=== PATIENT | female | born 1960 | race Caucasian/White ===

== ENCOUNTER 2017-10-15 18:13 | Emergency (ER) | payer OTHER ==
--- OUTSIDE RECORDS SUMMARY | 2017-10-15 18:15 | XMS REPORT ---
:1960 [facility] Address [address] [place] [address] [address] Care Team Providers Name Role Phone Deshawn CAMPOS Unavailable Unavailable Problems This patient has no known problems. Allergies, Adverse Reactions, Alerts This patient has no known allergies or adverse reactions. Medications This patient has no known medications. Results Test Description Test Time Test Comments Text Results Atomic Results Result Comments [facility] [address] [address] Patient Name: GERA PALUMBO SERIES MR #: [id number] : 1960 Age/Sex: 56/F W/PA CXR Req #: [id number] Adm Physician: Ordered by: JEF CAMPOS MD Report #: [id number] Location: ER Room/Bed: _ Procedure: [id number] DX/ABDOMEN ACUTE SERIES W/PA CXR Exam Date: 04/18/17 Exam Time: 0210 REPORT STATUS: Signed EXAM: ABDOMEN ACUTE SERIES W/ PA CXR, supine and erect views of the abdomen, AP view of the chest DATE: 04/18/2017 1:29 AM Time stamp on exam: 0155 hours INDICATION: Abdominal pain COMPARISON: CT of the abdomen and pelvis December 12, 2016 FINDINGS: LINES/TUBES: None LUNGS: No consolidations or edema. PLEURA: No effusions or pneumothorax. HEART AND MEDIASTINUM: Normal size and contour. BOWEL PATTERN: Non-obstructed bowel gas pattern. BONES AND SOFT TISSUES: No acute bone findings. No abnormal calcifications. No mass effect. Bilateral chest surgical clips. Surgical clips right upper quadrant of the abdomen. IMPRESSION: No acute thoracic abnormality. No evidence for bowel obstruction. Signed by: Dr. Theo Blanton M.D. on 04/18/2017 2:40 AM Dictated By: THEO BLANTON MD 9 Transcribed By: DONY on 04/18/17239 COPY TO: JEF CAMPOS MD
[2017-10-15 19:45] LABS: Glomerular Filtration Rate > 60 mL/min (>60)
[2017-10-15 19:46] LABS: Bicarbonate 30 mEq/L (21-31); Lipase 39 U/L (22-51); Potassium 3.5 mEq/L (3.6-5.0); Sodium Level 132 mEq/L (135-145)
[2017-10-15 19:52] LABS: ALT/SGPT 45 IU/L (10-60); AST/SGOT 55 IU/L (10-42); Albumin 3.7 g/dL (3.2-5.5); Alkaline Phosphatase 188 IU/L (42-121); Amylase Level 40 U/L (28-100); BUN Blood Urea Nitrogen 9 mg/dL (6-20); Bilirubin Direct 0.2 mg/dL (0-0.2); Glomerular Filtration Rate > 90 mL/min (=/>90); Protein, Total 7.9 g/dL (6.0-8.3)
[2017-10-15 19:54] LABS: Absolute Lymphocytes (CBC) 1.4 K/uL (0.7-4.9); Absolute Monocytes 0.5 K/uL (0.1-1.3); Absolute Neutrophil 5.5 K/uL (1.8-8.0); Basophils % 0.4 % (0-1.3); Eosinophils % 0.4 % (0-4.4); Hematocrit 40.3 % (36.0-45.0); Lymphocytes % 19.3 % (15.3-44.8); MCH 26.5 pg (27.0-35.0); MCV 81.7 fL (80-100); MPV 8.7 fL (7.6-11.3); Monocytes % 6.9 % (3.3-12.3); RBC Red Blood Cell Count 4.93 M/uL (3.86-4.86)
[2017-10-15 20:05] LABS: Urine Blood NEGATIVE (NEG); Urine Glucose 2+ (NEG); Urine Protein NEGATIVE (NEG); Urine Specific Gravity 1.015 (1.005-1.030); Urine pH 7.5 (5.0-7.0)
[2017-10-15 20:06] LABS: Glucose Level 471 mg/dL (65-120)
[2017-10-15] MEDS ORDERED: NA CHLORIDE 0.9% 500 ML ONE (20:16)
[2017-10-15] MEDS ORDERED: ONDANSETRON 4 MG/2 ML VIAL ONE (20:16)
[2017-10-15] MEDS ORDERED: MORPHINE 4 MG/ML SYR ONE ×2 (20:17→21:29)
[2017-10-15 20:21] LABS: Urine Bacteria <20 /HPF (<20); Urine Culture Reflex Order NOT NEEDED; Urine RBC <5 /HPF (NONE SEEN)
--- NOTE | 2017-10-15 20:25 | RAD REPORT ---
EXAM DESCRIPTION: Kelli Single View10/15/2017 8:16 pm CLINICAL HISTORY: Abd pain COMPARISON: 2016 FINDINGS: The lungs appear clear of acute infiltrate. The heart is normal size IMPRESSION: No acute abnormalities displayed
[2017-10-15] MEDS ORDERED: NA CHLORIDE 0.9% 1,000 ML ONE (20:45)
[2017-10-15] MEDS ORDERED: INSULIN -REGULAR HUMAN 50 UNIT/0.5 ML ML ONE (20:45)
--- NOTE | 2017-10-16 | ER ---
Nurse's Notes [facility] Name: Jeannette Ashby Age: 57 yrs Sex: Female : 1960 Arrival Date: 10/15/2017 Time: 18:17 Bed 20 Private MD: Hollie Zamora Diagnosis: Unspecified abdominal pain Presentation: 10/15 18:36 Presenting complaint: Patient states: "I checked my sugar other and it read high. I lk1 took my Novalog and the last reading was 576. My vision is blurry and I am having abdominal pain. I feel lethargic". Transition of care: patient was not received from another setting of care. Onset of symptoms was October 15, 2017 at 08:00. Care prior to arrival: None. 18:36 Method Of Arrival: Ambulatory lk1 18:36 Acuity: VERONICA 3 lk1 Triage Assessment: 18:38 General: Appears in no apparent distress. Behavior is calm, cooperative, appropriate lk1 for age. Pain: Complains of pain in abdomen Pain currently is 8 out of 10 on a pain scale. GI: Reports diarrhea. : Reports urinary frequency. Historical: - Allergies: 18:38 Darvocet-N 100; lk1 18:38 tramadol; lk1 18:38 Zithromax; lk1 - PMHx: 18:38 Anxiety; MUSCLE WEAKNESS; Diabetes - IDDM; Depression; COPD; Cancer, Breast; colitis; lk1 - PSHx: 18:38 Appendectomy; Hysterectomy; Cholecystectomy; ; bilateral mastectomy; breast lk1 reconstructive surgery; - Immunization history:: Adult Immunizations up to date. - Social history:: Smoking status: Patient uses tobacco products, smokes one pack cigarettes per day. Screenin:08 Abuse screen: Denies threats or abuse. Nutritional screening: No deficits noted. jd3 Tuberculosis screening: No symptoms or risk factors identified. Fall Risk None identified. Assessment: 18:52 Reassessment: Patient states she checked her sugar at approximately 1700 and it was in ae1 the "600s", then took 8 units Novolog insulin, then checked her sugar again approximately an hour later and sugar was still "576". Patient states she was in the hospital 2 days prior, and was diagnosed with colitis and placed on antibiotics, and is still having abdominal pain. 19:03 Reassessment: Report and hand off care to Rosario Hull RN. ae1 19:06 General: Appears in no apparent distress. uncomfortable, Behavior is calm, cooperative, jd3 appropriate for age. Pain: Complains of pain in abdomen Quality of pain is described as stabbing, throbbing. Neuro: Level of Consciousness is awake, alert, obeys commands, Oriented to person, place, time, situation. Cardiovascular: Heart tones S1 S2 present Capillary refill < 3 seconds Patient's skin is warm and dry. Respiratory: Airway is patent Respiratory effort is even, unlabored, Respiratory pattern is regular, symmetrical, Breath sounds are clear bilaterally. GI: Abdomen is round Bowel sounds present X 4 quads. Abd is soft Abdomen is tender to palpation X 4 quads. Reports lower abdominal pain, upper abdominal pain, diarrhea. : No signs and/or symptoms were reported regarding the genitourinary system. EENT: No signs and/or symptoms were reported regarding the EENT system. Derm: Skin is intact, Skin is dry, Skin is normal, Skin temperature is warm. Musculoskeletal: Circulation, motion, and sensation intact. Range of motion: intact in all extremities. 20:11 Reassessment: Pt complained of abd pain and after discussion with Page KAREN pt was given fc Morphine. 20:49 Reassessment: Patient appears in no apparent distress at this time. Patient and/or jd3 family updated on plan of care and expected duration. Pain level reassessed. Patient is alert, oriented x 3, equal unlabored respirations, skin warm/dry/pink. pt finished oral contrast CT notified. 21:18 Reassessment: Patient appears in no apparent distress at this time. Patient and/or jd3 family updated on plan of care and expected duration. Pain level reassessed. Patient is alert, oriented x 3, equal unlabored respirations, skin warm/dry/pink. pt reporting continued pain, provider notified, new orders received, see MAR. 22:46 Reassessment: Patient appears in no apparent distress at this time. Patient and/or jd3 family updated on plan of care and expected duration. Pain level reassessed. Patient is alert, oriented x 3, equal unlabored respirations, skin warm/dry/pink. pt back from CT. 23:54 Reassessment: Patient appears in no apparent distress at this time. Patient and/or jd3 family updated on plan of care and expected duration. Pain level reassessed. Patient is alert, oriented x 3, equal unlabored respirations, skin warm/dry/pink. 10/16 00:22 Reassessment: Patient appears in no apparent distress at this time. Patient and/or jd3 family updated on plan of care and expected duration. Pain level reassessed. Patient is alert, oriented x 3, equal unlabored respirations, skin warm/dry/pink. pt reported understanding of discharge instructions, even and steady gait to front of ER to wait for her ride. Vital Signs: 10/15 18:39 BP 174 / 109; Pulse 111; Resp 18; Temp 98.6(O); Pulse Ox 100% on R/A; Weight 69.4 kg lk1 (R); Height 5 ft. 4 in. (162.56 cm) (R); Pain 8/10; 19:18 BP 164 / 100; Pulse 110; Resp 18 S; Pulse Ox 93% on R/A; Pain 8/10; jd3 20:11 BP 168 / 94; Pulse 103; Resp 16; Pulse Ox 94% on R/A; Pain 8/10; fc 21:18 BP 173 / 98; Pulse 102; Resp 18 S; Pulse Ox 98% on R/A; jd3 22:46 BP 163 / 89; Pulse 90; Resp 17 S; Pulse Ox 97% on R/A; jd3 23:54 BP 176 / 87; Pulse 96; Resp 17 S; Pulse Ox 100% ; jd3 18:39 Body Mass Index 26.26 (69.40 kg, 162.56 cm) lk1 ED Course: 18:17 Patient arrived in ED. mr 18:17 Hollie Zamora is Private Physician. mr 18:37 Triage completed. lk1 18:41 Arm band placed on right wrist. lk1 19:00 Placed in gown. Bed in low position. Call light in reach. Side rails up X 1. Adult w/ ae1 patient. Pulse ox on. NIBP on. Warm blanket given. 19:06 Tereso De La Cruz, PANKAJ is Primary Nurse. jd3 19:11 Reinier Singletary PA is PHCP. cp 19:11 Reinier Burks MD is Attending Physician. cp 19:21 Initial lab(s) drawn, by me, sent to lab. Missed attempt(s): 22 gauge in left forearm. cb2 Bleeding controlled, band aid applied, catheter tip intact. 19:42 Urine collected: clean catch specimen, clear, christine colored. cb2 19:54 Inserted 18 gauge 10 cm midline to left upper basilic vein on first attempt. Pt fc tolerated it well. Line with good blood return and flushes well. 20:02 Notified Nurse Practitioner and/or Physician Outside Medical Sales Representative of a critical lab result(s), jd3 glucose of 471. 20:14 XRAY Chest (1 view) In Process Unspecified. EDMS 20:14 X-ray completed. Portable x-ray completed in exam room. Patient tolerated procedure jb2 well. 22:26 Eddy Singh MD is Attending Physician. cp 22:26 PHCP role handed off by Reinier Singletary PA snw 22:26 Praveena Richard FNP-C is PHCP. snw 22:[address] via wheelchair. eh 22:34 CT Abd/Pelvis - W/Contrast In Process Unspecified. EDMS 23:59 Hollie Zamora is Referral Physician. snw 04 00:17 No provider procedures requiring assistance completed. IV discontinued, intact, jd3 bleeding controlled, No redness/swelling at site. Pressure dressing applied. Administered Medications: 10/15 20:05 Drug: NS 0.9% 500 ml Route: IV; Rate: bolus; Site: left upper arm; fc 21:02 Follow up: Response: No adverse reaction; IV Status: Completed infusion; IV Intake: jd3 500ml 20:06 Drug: Zofran 4 mg Route: IVP; Site: left upper arm; fc 21:02 Follow up: Response: No adverse reaction jd3 20:09 Drug: morphine 4 mg Route: IVP; Site: left upper arm; fc 21:02 Follow up: Response: No adverse reaction jd3 20:32 Drug: Insulin Regular Human 10 units {Co-Signature: bs1 (Jessica Hummel RN).} Route: jd3 IVP; Site: left antecubital; 23:55 Follow up: Response: Blood sugar is lowered jd3 20:32 Drug: NS 0.9% 1000 ml Route: IV; Rate: 125 ml/hr; Site: left antecubital; jd3 10/16 00:16 Follow up: Response: No adverse reaction; IV Status: Order to discontinue infusion; IV jd3 Intake: 450ml 10/15 21:18 Drug: morphine 4 mg Route: IVP; Site: left antecubital; jd3 23:55 Follow up: Response: No adverse reaction jd3 10/16 00:13 Drug: morphine 4 mg Route: IM; Site: right deltoid; jd3 00:23 Follow up: Response: Medication administered at discharge. jd3 Point of Care Testing: Blood Glucose: 10/15 18:59 Blood Glucose: 472 mg/dL; ae1 21:23 Blood Glucose: 269 mg/dL; cb2 Ranges: Intake: 21:02 IV: 500ml; Total: 500ml. jd3 10/16 00:16 IV: 450ml; Total: 950ml. jd3 Outcome: 00:00 Discharge ordered by . snw 00:18 Condition: stable jd3 00:18 Discharge instructions given to patient, Instructed on discharge instructions, follow up and referral plans. Demonstrated understanding of instructions, follow-up care. 00:22 Discharged to home ambulatory, with family. jd3 00:23 Patient left the ED. jd3 Signatures: Dispatcher [employer] EDMS Praveena Richard, WEB MASTER-C WEB MASTER-Csnw [place] mr ReynoldsAnkush jbHollis Rojas Felicia, RN RN fc Reinier Singletary PA PA cp Kluge, Leah, RN RN lk1 Andres Barney RN RN ae1 Ad Montes Jonathon, RN RN jd3 Jessica Hummel RN bs1
--- NOTE | 2017-10-16 00:01 | EDPHYS ---
Physician Documentation [facility] Name: Jeannette Ashby Age: 57 yrs Sex: Female : 1960 Arrival Date: 10/15/2017 Time: 18:17 Bed 20 Private MD: Hollie Zamora ED Physician Eddy Singh HPI: 10/15 19:30 This 57 yrs old Female presents to ER via Ambulatory with complaints of High cp Blood Sugar, Abdominal Pain. 19:30 The patient or guardian reports hyperglycemia. Onset: The symptoms/episode cp began/occurred gradually. Associated signs and symptoms: Pertinent positives: abdominal pain. 19:30 Current symptoms: In the emergency department the patient's symptoms are unchanged from cp the initial presentation, despite home interventions. Historical: - Allergies: 18:38 Darvocet-N 100; lk1 18:38 tramadol; lk1 18:38 Zithromax; lk1 - PMHx: 18:38 Anxiety; MUSCLE WEAKNESS; Diabetes - IDDM; Depression; COPD; Cancer, Breast; colitis; lk1 - PSHx: 18:38 Appendectomy; Hysterectomy; Cholecystectomy; ; bilateral mastectomy; breast lk1 reconstructive surgery; - Immunization history:: Adult Immunizations up to date. - Social history:: Smoking status: Patient uses tobacco products, smokes one pack cigarettes per day. ROS: 19:35 Constitutional: Negative for body aches, chills, fever, poor PO intake. cp 19:35 Eyes: Negative for injury, pain, redness, and discharge. cp 19:35 ENT: Negative for drainage from ear(s), ear pain, sore throat, difficulty swallowing, difficulty handling secretions. 19:35 Cardiovascular: Negative for chest pain, edema, palpitations. 19:35 Respiratory: Negative for cough, shortness of breath, wheezing. 19:35 Abdomen/GI: Positive for abdominal pain, Negative for diarrhea, constipation, black/tarry stool, rectal bleeding. 19:35 Back: Negative for pain at rest, pain with movement, radiated pain. 19:35 : Negative for urinary symptoms. 19:35 Skin: Negative for cellulitis, rash. 19:35 Neuro: Positive for general weakness, Negative for altered mental status, headache. 19:35 All other systems are negative. Exam: 19:42 Constitutional: The patient appears in no acute distress, alert, awake, non-toxic, well cp developed, well nourished. 19:42 Head/Face: Normocephalic, atraumatic. cp 19:42 Eyes: Periorbital structures: appear normal, Pupils: equal, round, and reactive to light and accomodation, Extraocular movements: intact throughout, Conjunctiva: normal, no exudate, no injection, Sclera: no appreciated abnormality, Lids and lashes: appear normal, bilaterally. 19:42 ENT: External ear(s): are unremarkable, Ear canal(s): are normal, clear, TM's: dullness, bilaterally, Nose: is normal, Mouth: Lips: moist, Oral mucosa: dry, Posterior pharynx: Airway: no evidence of obstruction, patent, Tonsils: are normal in appearance, Uvula: midline, non-edematous, no erythema, swelling, is not appreciated, erythema, that is mild, exudate, is not appreciated, Voice: is normal. 19:42 Neck: ROM/movement: is normal, is supple, without pain, no range of motions limitations, no nuchal rigidity. 19:42 Chest/axilla: Inspection: normal, Palpation: is normal, no crepitus, no tenderness. 19:42 Cardiovascular: Rate: tachycardic, Rhythm: regular. 19:42 Respiratory: the patient does not display signs of respiratory distress, Respirations: normal, no use of accessory muscles, no retractions, no splinting, no tachypnea, labored breathing, is not present, Breath sounds: are clear throughout, no decreased breath sounds, no stridor, no wheezing. 19:42 Abdomen/GI: Inspection: distension, that is mild, Bowel sounds: active, all quadrants, Palpation: soft, in all quadrants, moderate abdominal tenderness, in all quadrants, rebound tenderness, is not appreciated, voluntary guarding, is elicited in all quadrants, involuntary guarding, is not appreciated. 19:42 Back: ROM is normal. 19:42 Skin: cellulitis, is not appreciated, no rash present. 19:42 Neuro: Orientation: to person, place \T\ time. Mentation: lucid, able to follow commands, Motor: moves all fours, negative for focal deficits, Sensation: no obvious gross deficits. Vital Signs: 18:39 BP 174 / 109; Pulse 111; Resp 18; Temp 98.6(O); Pulse Ox 100% on R/A; Weight 69.4 kg lk1 (R); Height 5 ft. 4 in. (162.56 cm) (R); Pain 8/10; 19:18 BP 164 / 100; Pulse 110; Resp 18 S; Pulse Ox 93% on R/A; Pain 8/10; jd3 20:11 BP 168 / 94; Pulse 103; Resp 16; Pulse Ox 94% on R/A; Pain 8/10; fc 21:18 BP 173 / 98; Pulse 102; Resp 18 S; Pulse Ox 98% on R/A; jd3 22:46 BP 163 / 89; Pulse 90; Resp 17 S; Pulse Ox 97% on R/A; jd3 23:54 BP 176 / 87; Pulse 96; Resp 17 S; Pulse Ox 100% ; jd3 18:39 Body Mass Index 26.26 (69.40 kg, 162.56 cm) lk1 MDM: 19:12 Patient medically screened. cp 20:00 Differential diagnosis: DKA, hyperglycemia, ascites, colitis, diverticulitis. cp 22:10 Data reviewed: vital signs, nurses notes, lab test result(s). cp 04 19:15 Order name: Amylase, Serum; Complete Time: 20:20 jd3 10/15 19:15 Order name: Basic Metabolic Panel; Complete Time: 20:20 jd3 10/15 19:15 Order name: CBC with Diff; Complete Time: 20:20 jd3 10/15 19:15 Order name: Creatinine for Radiology; Complete Time: 20:20 jd3 10/15 19:15 Order name: Hepatic Function; Complete Time: 20:20 jd3 10/15 19:15 Order name: Lipase; Complete Time: 20:20 jd3 10/15 19:15 Order name: Urine Microscopic Only; Complete Time: 21:07 jd3 10/15 19:26 Order name: Ketone, Serum; Complete Time: 20:20 cp 10/15 19:26 Order name: AMMONIA; Complete Time: 20:20 cp 10/15 19:26 Order name: XRAY Chest (1 view); Complete Time: 21:07 cp 10/15 19:48 Order name: Urine Dipstick--Ancillary (enter results); Complete Time: 20:20 rg2 10/15 20:21 Order name: CT Abd/Pelvis - W/Contrast cp 10/15 19:15 Order name: IV Saline Lock; Complete Time: 19:55 jd3 10/15 19:15 Order name: Labs collected and sent; Complete Time: 19:55 jd3 10/15 19:15 Order name: Urine Dipstick-Ancillary (obtain specimen); Complete Time: 19:55 jd3 Administered Medications: 20:05 Drug: NS 0.9% 500 ml Route: IV; Rate: bolus; Site: left upper arm; fc 21:02 Follow up: Response: No adverse reaction; IV Status: Completed infusion; IV Intake: jd3 500ml 20:06 Drug: Zofran 4 mg Route: IVP; Site: left upper arm; fc 21:02 Follow up: Response: No adverse reaction jd3 20:09 Drug: morphine 4 mg Route: IVP; Site: left upper arm; fc 21:02 Follow up: Response: No adverse reaction jd3 20:32 Drug: Insulin Regular Human 10 units {Co-Signature: bs1 (Jessica Hummel RN).} Route: jd3 IVP; Site: left antecubital; 23:55 Follow up: Response: Blood sugar is lowered jd3 20:32 Drug: NS 0.9% 1000 ml Route: IV; Rate: 125 ml/hr; Site: left antecubital; jd3 10/16 00:16 Follow up: Response: No adverse reaction; IV Status: Order to discontinue infusion; IV jd3 Intake: 450ml 10/15 21:18 Drug: morphine 4 mg Route: IVP; Site: left antecubital; jd3 23:55 Follow up: Response: No adverse reaction jd3 10/16 00:13 Drug: morphine 4 mg Route: IM; Site: right deltoid; jd3 00:23 Follow up: Response: Medication administered at discharge. jd3 Point of Care Testing: Blood Glucose: 10/15 18:59 Blood Glucose: 472 mg/dL; ae1 21:23 Blood Glucose: 269 mg/dL; cb2 Ranges: Critical Glucose Levels:Adult <50 mg/dl or >400 mg/dl <40 mg/dl or >180 mg/dl Disposition: 10/16 04:26 Co-signature as Attending Physician, Eddy Singh MD., rn Disposition: 10/16/17 00:00 Discharged to Home. Impression: Unspecified abdominal pain. - Condition is Stable. - Discharge Instructions: Abdominal Pain, Adult, Hyperglycemia, Hypertension. - Medication Reconciliation Form, Thank You Letter, Antibiotic Education, Prescription Opioid Use form. - Follow up: Hollie Zamora; When: 1 - 2 days; Reason: Recheck today's complaints, Continuance of care, Re-evaluation by your physician. Follow up: Emergency Department; When: As needed; Reason: Worsening of condition. Signatures: Dispatcher [employer] EDMS Praveena Richard, FLUID PUMP OPERATOR-C FLUID PUMP OPERATOR-Csnw Kristyn Beltran, RN RN fc Eddy Snigh MD MD rn Page, Corey, PA PA cp Kluge, Leah RN RN lk1 Tereso De La Cruz RN RN jd3 Jessica Hummel RN bs1
[2017-10-16] MEDS ORDERED: MORPHINE 4 MG/ML SYR ONE (00:23)
--- NOTE | 2017-10-16 07:49 | RAD REPORT ---
EXAM DESCRIPTION: CT - Abdomen Pelvis W Contrast - 10/16/2017 6:50 am CLINICAL HISTORY: Abdominal pain. Upper abdominal pain COMPARISON: August 2017 TECHNIQUE: Computed axial tomography of the abdomen and pelvis was obtained. 100 cc Isovue-300 is ad ministered intravenously. Oral contrast was given. A preliminary report was given by virtual radiolog ic and reviewed prior to this dictation All CT scans are performed using dose optimization technique as appropriate and may include automated exposure control or mA/KV adjustment according to patient size. FINDINGS: A cirrhotic liver is present. A discrete lesion is not seen the portal vein is distended. It is paten t. The spleen measures 18 centimeters. A couple of granulomas are present within the liver and spleen The pancreas and adrenals are unremarkable. Renal cysts are unchanged. The appendix has been removed. There is no evidence of diverticulitis. No ascites is seen. A moderate amount of stool is present throughout colon IMPRESSION: Cirrhosis with portal venous hypertension. Moderate amount stool throughout the colon
== END 2017-10-16 00:23 | disposition home or self-care (01) ==
LOC: ER 18:13
DX: R10.9 Unspecified abdominal pain (principal); E11.9 Type 2 diabetes mellitus without complications; F17.210 Nicotine dependence, cigarettes, uncomplicated; Z85.3 Personal history of malignant neoplasm of breast; Z88.1 Allergy status to other antibiotic agents; Z88.5 Allergy status to narcotic agent; Z88.6 Allergy status to analgesic agent; Z90.13 Acquired absence of bilateral breasts and nipples
CPT/HCPCS: 36415; 71045; 74177; 80048; 80076; 82009; 82140; 82150; 82962 ×2; 83690; 85025; 96372; 99284; J2405; J7030; Q9967; 81003; 81015; 96361; 96374; 96375

== ENCOUNTER 2017-10-18 07:41 | Emergency (ER) | payer OTHER ==
--- OUTSIDE RECORDS SUMMARY | 2017-10-18 07:43 | XMS REPORT ---
:1960 [facility] Address [address] [place] [address] [address] Care Team Providers Name Role Phone Deshawn CAMPOS Unavailable Unavailable Problems This patient has no known problems. Allergies, Adverse Reactions, Alerts This patient has no known allergies or adverse reactions. Medications This patient has no known medications. Results Test Description Test Time Test Comments Text Results Atomic Results Result Comments [facility] [address] [address] Patient Name: GERA PALUMBO SERIES MR #: [id number] : 1960 Age/Sex: 56/F W/PA CXR Req #: [id number] Adm Physician: Ordered by: JEF CAMPOS MD Report #: [id number] Location: ER Room/Bed: _ Procedure: [id number] DX/ABDOMEN ACUTE SERIES W/PA CXR Exam Date: [...]
[2017-10-18] MEDS ORDERED: NA CHLORIDE 0.9% 500 ML ONE (08:38)
[2017-10-18 08:44] LABS: Bicarbonate 30 mEq/L (21-31); Glucose Level 303 mg/dL (65-120); Lipase 44 U/L (22-51); Potassium 3.1 mEq/L (3.6-5.0); Sodium Level 133 mEq/L (135-145)
[2017-10-18 08:51] LABS: ALT/SGPT 51 IU/L (10-60); AST/SGOT 72 IU/L (10-42); Absolute Lymphocytes (CBC) 1.3 K/uL (0.7-4.9); Absolute Monocytes 0.5 K/uL (0.1-1.3); Absolute Neutrophil 4.8 K/uL (1.8-8.0); Albumin 3.6 g/dL (3.2-5.5); Alkaline Phosphatase 178 IU/L (42-121); BUN Blood Urea Nitrogen 12 mg/dL (6-20); Basophils % 0.4 % (0-1.3); Bilirubin Direct 0.3 mg/dL (0-0.2); Bilirubin Total 1.2 mg/dL (0.3-1.2); Eosinophils % 0.7 % (0-4.4); Hematocrit 38.8 % (36.0-45.0); MCH 26.1 pg (27.0-35.0); MCV 80.5 fL (80-100); MPV 8.2 fL (7.6-11.3); Monocytes % 7.4 % (3.3-12.3); Protein, Total 7.3 g/dL (6.0-8.3); RBC Red Blood Cell Count 4.81 M/uL (3.86-4.86)
[2017-10-18] MEDS ORDERED: MEPERIDINE HCL 25 MG/0.5 ML ONE (09:14)
[2017-10-18] MEDS ORDERED: ONDANSETRON 4 MG/2 ML VIAL ONE (09:14)
[2017-10-18 09:51] LABS: Anisocytosis 1+; Blood Morphology Comment NOTED (NOT SEEN); Platelet Estimate DECR; Urine White Blood Cell Casts OK
[2017-10-18] MEDS ORDERED: POTASSIUM 25 MEQ EFFERV TAB ONE (09:57)
[2017-10-18] MEDS ORDERED: DIPHENOX/ATROP SULF 1 TAB PO ONE (09:57)
[2017-10-18] MEDS ORDERED: POTASSIUM CL SA 10 MEQ TAB PO ONE (09:57)
--- NOTE | 2017-10-18 10:05 | RAD REPORT ---
EXAM DESCRIPTION: RAD - Chest Single View - 10/18/2017 8:31 am CLINICAL HISTORY: Chest pain. COMPARISON: 10/15/2017 FINDINGS: Portable technique limits examination quality. The lungs are grossly clear. The heart is normal in size. No displaced fractures.Postsurgical clips a re noted. IMPRESSION: No acute intrathoracic process suspected.
--- NOTE | 2017-10-18 10:11 | EDPHYS ---
Physician Documentation [facility] Name: Jeannette Ashby Age: 57 yrs Sex: Female : 1960 Arrival Date: 10/18/2017 Time: 07:42 Bed 8 Private MD: ED Physician Eddy Singh HPI: 10/18 09:00 This 57 yrs old Female presents to ER via Ambulatory with complaints of Chest rn Pain, Abdominal Pain. 09:00 The patient presents with abdominal pain that is diffuse. Onset: The symptoms/episode rn began/occurred 1 week(s) ago. The symptoms do not radiate. Associated signs and symptoms: Pertinent positives: diarrhea, Pertinent negatives: blood in stools, fever, vomiting, vomiting blood. The symptoms are described as crampy. Severity of pain: At its worst the pain was mild in the emergency department the pain is unchanged. The patient has experienced similar episodes in the past. Reports diffuse abd cramping, began a week ago, no fever, took abx for colitis, no blood in stool, reports chronic abd pain, also report sharp right sided chest pain with breathing, no sob. . Historical: - Allergies: 08:00 Darvocet-N 100; ss 08:00 Zithromax; ss 08:00 tramadol; ss - PMHx: 08:00 Anxiety; Cancer, Breast; Colitis; COPD; Depression; Diabetes - IDDM; MUSCLE WEAKNESS; ss - PSHx: 08:00 Appendectomy; Hysterectomy; Cholecystectomy; ; bilateral mastectomy; breast ss reconstructive surgery; - Immunization history:: Adult Immunizations up to date. - Social history:: Smoking status: Patient uses tobacco products, smokes one-half pack cigarettes per day. - Family history:: not pertinent. - Hospitalizations: : No recent hospitalization is reported. ROS: 09:00 Constitutional: Negative for fever, chills, and weight loss, Eyes: Negative for injury, rn pain, redness, and discharge, Neck: Negative for injury, pain, and swelling, Cardiovascular: Negative for palpitations, and edema, Respiratory: Negative for shortness of breath, wheezing Abdomen/GI: Negative for nausea, vomiting and constipation, Back: Negative for injury and pain, MS/Extremity: Negative for injury and deformity, Skin: Negative for injury, rash, and discoloration, Neuro: Negative for headache, weakness, numbness, tingling, and seizure. Exam: 09:00 Constitutional: This is a well developed, well nourished patient who is awake, alert, rn and in no acute distress. Head/Face: Normocephalic, atraumatic. Eyes: Pupils equal round and reactive to light, extra-ocular motions intact. Lids and lashes normal. Conjunctiva and sclera are non-icteric and not injected. Cornea within normal limits. Periorbital areas with no swelling, redness, or edema. Cardiovascular: Regular rate and rhythm with a normal S1 and S2. No gallops, murmurs, or rubs. Normal PMI, no JVD. No pulse deficits. Respiratory: Lungs have equal breath sounds bilaterally, clear to auscultation and percussion. No rales, rhonchi or wheezes noted. No increased work of breathing, no retractions or nasal flaring. Abdomen/GI: soft, non-tender, + soft periumbilical mass, no peritoneal signs MS/ Extremity: Pulses equal, no cyanosis. Neurovascular intact. Full, normal range of motion. Equal circumference. Neuro: Awake and alert, GCS 15, oriented to person, place, time, and situation. Cranial nerves II-XII grossly intact. Motor strength 5/5 in all extremities. Sensory grossly intact. Cerebellar exam normal. Normal gait. Vital Signs: 08:00 BP 193 / 107; Pulse 105; Resp 17; Pulse Ox 97% on R/A; Weight 72.57 kg; Height 5 ft. 4 ss in. (162.56 cm); Pain 10/10; 09:04 BP 169 / 98; Pulse 95; Resp 16; Pulse Ox 93% on R/A; Pain 10/10; ph 10:08 BP 171 / 94; Pulse 104; Resp 18; Pulse Ox 98% on R/A; ph 08:00 Body Mass Index 27.46 (72.57 kg, 162.56 cm) ss MDM: 07:49 Patient medically screened. rn 10:10 Differential diagnosis: non-specific abd pain, dehydration, abd cramping, diarrhea. rn Data reviewed: vital signs, nurses notes, lab test result(s), radiologic studies, plain films, and as a result, I will discharge patient. Counseling: I had a detailed discussion with the patient and/or guardian regarding: the historical points, exam findings, and any diagnostic results supporting the discharge/admit diagnosis, lab results, radiology results, the need for outpatient follow up, to return to the emergency department if symptoms worsen or persist or if there are any questions or concerns that arise at home. Special discussion: Based on the patient's history, exam, and Dx evaluation, there is no indication for emergent intervention or inpatient Tx. It is understood by the patient/guardian that if the Sx's persist or worsen they need to return immediately for re-evaluation. Based on the patient's Hx, exam, and Dx evaluation, there is no indication for emergent surgery or inpatient Tx. It is understood by the patient/guardian that if the Sx's persist or worsen they need to return immediately for re-evaluation. I discussed with the patient/guardian in detail that at this point there is no indication for admission to the hospital. It is understood, however, that if the symptoms persist or worsen the patient needs to return immediately for re-evaluation. 10/18 08:02 Order name: Basic Metabolic Panel; Complete Time: 09:32 rn 10/18 08:02 Order name: CBC with Diff; Complete Time: 10: rn 10/18 08:02 Order name: Creatinine for Radiology; Complete Time: 09:32 rn 10/18 08:02 Order name: Hepatic Function; Complete Time: 09:32 rn 10/18 08:02 Order name: Lipase; Complete Time: 09:32 rn 10/18 08:02 Order name: Urine Microscopic Only rn 10/18 08:02 Order name: Troponin (emerg Dept Use Only); Complete Time: 09:32 rn 10/18 08:02 Order name: XRAY Chest (1 view); Complete Time: 10:09 rn 10/18 09:05 Order name: CBC Smear Scan; Complete Time: 10:09 EDMS 10/18 10:36 Order name: Urine Dipstick--Ancillary (enter results) bd 10/18 08:02 Order name: IV Saline Lock; Complete Time: 08:49 rn 10/18 08:02 Order name: Labs collected and sent; Complete Time: 08:49 rn 10/18 08:02 Order name: Urine Dipstick-Ancillary (obtain specimen); Complete Time: 08:49 rn 10/18 08:02 Order name: EKG; Complete Time: 08:02 rn 10/18 08:02 Order name: EKG - Nurse/Tech; Complete Time: 08:17 rn Administered Medications: 09:02 Drug: NS 0.9% 500 ml Route: IV; Rate: bolus; Site: right forearm; ph 10:07 Follow up: Response: No adverse reaction; IV Status: Completed infusion ph 09:02 Drug: Demerol 25 mg Route: IVP; Site: right antecubital; ph 09:44 Follow up: Response: No adverse reaction; Pain is decreased ph 09:03 Drug: Zofran 4 mg Route: IVP; Site: right forearm; ph 09:45 Follow up: Response: No adverse reaction; Nausea is decreased ph 09:44 Drug: Potassium Chloride 40 mEq Route: PO; ph 10:07 Follow up: Response: No adverse reaction ph 09:44 Drug: LoMOTIL 2 tabs Route: PO; ph 10:07 Follow up: Response: No adverse reaction ph Disposition: 10/18/17 10:10 Discharged to Home. Impression: Diarrhea, unspecified. - Condition is Stable. - Discharge Instructions: Dehydration, Adult, Diarrhea, Hypokalemia. - Medication Reconciliation Form, Thank You Letter, Antibiotic Education, Prescription Opioid Use form. - Follow up: Private Physician; When: As needed; Reason: Recheck today's complaints, Re-evaluation by your physician. - Problem is new. - Symptoms have improved. Signatures: Dispatcher [employer] Eddy Garcia MD MD rn Smirch, Shelby, RN RN Nivia Olivares RN RN
--- NOTE | 2017-10-18 10:11 | ER ---
Nurse's Notes [facility] Name: Jeannette Ashby Age: 57 yrs Sex: Female : 1960 Arrival Date: 10/18/2017 Time: 07:42 Bed 8 Private MD: Diagnosis: Diarrhea, unspecified Presentation: 10/18 07:58 Presenting complaint: Patient states: seen at [facility] a week ago and ss diagnosed with colitis and seen in [facility] 3 days ago for same symptoms. PT reports she is still having diarrhea and abd pain and now she is having a sharp pain to her R anterior chest wall when taking a deep breath. Transition of care: patient was not received from another setting of care. Onset of symptoms was October 11, 2017. Care prior to arrival: None. 07:58 Method Of Arrival: Ambulatory 07:58 Acuity: VERONICA 3 ss Historical: - Allergies: 08:00 Darvocet-N 100; ss 08:00 Zithromax; ss 08:00 tramadol; ss - PMHx: 08:00 Anxiety; Cancer, Breast; Colitis; COPD; Depression; Diabetes - IDDM; MUSCLE WEAKNESS; ss - PSHx: 08:00 Appendectomy; Hysterectomy; Cholecystectomy; ; bilateral mastectomy; breast ss reconstructive surgery; - Immunization history:: Adult Immunizations up to date. - Social history:: Smoking status: Patient uses tobacco products, smokes one-half pack cigarettes per day. - Family history:: not pertinent. - Hospitalizations: : No recent hospitalization is reported. Screenin:44 Abuse screen: Denies threats or abuse. Denies injuries from another. Nutritional ph screening: No deficits noted. Tuberculosis screening: No symptoms or risk factors identified. Fall Risk None identified. Assessment: 08:32 General: Appears in no apparent distress. uncomfortable, well groomed, Behavior is ph calm, cooperative, appropriate for age, Denies fever. Pain: Complains of pain in chest and abdomen. Neuro: Level of Consciousness is awake, alert, obeys commands, Oriented to person, place, time, situation. Cardiovascular: Reports chest pain, fatigue, lightheadedness, nausea, Denies palpitations, shortness of breath, syncope, Capillary refill < 3 seconds in bilateral fingers Patient's skin is warm and dry. Chest pain quality is sharp, stabbing, is located in right anterior chest wall is aggravated by breathing. Respiratory: Airway is patent Respiratory effort is even, unlabored, Respiratory pattern is regular, symmetrical. GI: Abdomen is round non-distended, Bowel sounds present X 4 quads. Reports lower abdominal pain, upper abdominal pain, diarrhea, nausea. Derm: Skin is intact, is healthy with good turgor, Skin is pink, warm \T\ dry. Musculoskeletal: Circulation, motion, and sensation intact. Range of motion: intact in all extremities. 09:04 Reassessment: Patient appears in no apparent distress at this time. Patient is alert, ph oriented x 3, equal unlabored respirations, skin warm/dry/pink. Pt c/o abdominal and chest pain 10/10, ERP notified, pt medicated per provider order. 10:08 Reassessment: Patient appears in no apparent distress at this time. Patient and/or ph family updated on plan of care and expected duration. Pain level reassessed. Patient is alert, oriented x 3, equal unlabored respirations, skin warm/dry/pink. Pt reports that chest pain and nausea have resolved, continues to c/o abdominal pain 7/10, ERP notified. Vital Signs: 08:00 BP 193 / 107; Pulse 105; Resp 17; Pulse Ox 97% on R/A; Weight 72.57 kg; Height 5 ft. 4 ss in. (162.56 cm); Pain 10/10; 09:04 BP 169 / 98; Pulse 95; Resp 16; Pulse Ox 93% on R/A; Pain 10/10; ph 10:08 BP 171 / 94; Pulse 104; Resp 18; Pulse Ox 98% on R/A; ph 08:00 Body Mass Index 27.46 (72.57 kg, 162.56 cm) ED Course: 07:42 Patient arrived in ED. as 07:49 Eddy Singh MD is Attending Physician. rn 07:59 Triage completed. ss 08:00 Arm band placed on right wrist. ss 08:05 Nivia Olivares, PANKAJ is Primary Nurse. ph 08:25 X-ray completed. Portable x-ray completed in exam room. Patient tolerated procedure kp1 well. 08:26 XRAY Chest (1 view) In Process Unspecified. EDMS 08:30 Missed attempt(s): 22 gauge in left forearm. Bleeding controlled, band aid applied, ph catheter tip intact. Patient maintains SpO2 saturation greater than 95% on room air. 08:45 Patient has correct armband on for positive identification. Placed in gown. Bed in low ph position. Call light in reach. Side rails up X 1. groundwater monitoring technician on. Pulse ox on. NIBP on. Warm blanket given. 08:48 Inserted saline lock: 22 gauge in right forearm, using aseptic technique. inserted by reinaldo Johnson textile technical officer. 10:46 No provider procedures requiring assistance completed. IV discontinued, intact, ss bleeding controlled, No redness/swelling at site. Pressure dressing applied. Administered Medications: 09:02 Drug: NS 0.9% 500 ml Route: IV; Rate: bolus; Site: right forearm; ph 10:07 Follow up: Response: No adverse reaction; IV Status: Completed infusion ph 09:02 Drug: Demerol 25 mg Route: IVP; Site: right antecubital; ph 09:44 Follow up: Response: No adverse reaction; Pain is decreased ph 09:03 Drug: Zofran 4 mg Route: IVP; Site: right forearm; ph 09:45 Follow up: Response: No adverse reaction; Nausea is decreased ph 09:44 Drug: Potassium Chloride 40 mEq Route: PO; ph 10:07 Follow up: Response: No adverse reaction ph 09:44 Drug: LoMOTIL 2 tabs Route: PO; ph 10:07 Follow up: Response: No adverse reaction ph Outcome: 10:10 Discharge ordered by . rn 10:46 Discharged to home ambulatory. ss 10:46 Condition: good 10:46 Discharge instructions given to patient, Instructed on discharge instructions, follow up and referral plans. Demonstrated understanding of instructions, follow-up care. 10:47 Patient left the ED. ss Signatures: Dispatcher [employer] Cherelle Oneil Roman, MD MD rn Smirch, Shelby, RN RN ss Hall, Patricia, RN RN ph Poole, Kathy 1
[2017-10-18 10:51] LABS: Urine Blood TRACE (NEG); Urine Glucose 2+ (NEG); Urine Protein TRACE (NEG); Urine Specific Gravity 1.015 (1.005-1.030)
[2017-10-18 11:41] LABS: Urine Bacteria 20-50 /HPF (<20); Urine Culture Reflex Order REFLEXED; Urine RBC <5 /HPF (NONE SEEN)
--- NOTE | 2017-10-18 12:02 | EKG ---
Test Date: 2017-10-18 Test Time: 08:13:13 Assistant Controller: HB MEASUREMENT RESULTS: Intervals: Rate: 92 MN: 148 QRSD: 72 QT: 370 QTc: 457 [place]: P: 49 MN: 148 QRS: 13 T: 51 INTERPRETIVE STATEMENTS: Normal sinus rhythm Normal ECG Compared to ECG 08/14/2017 11:23:31 Sinus tachycardia no longer present Electronically Signed On 10-18-17 12:01:53 CDT by Dewayne Hopper
== END 2017-10-18 10:47 | disposition home or self-care (01) ==
LOC: ER 07:41
DX: R19.7 Diarrhea, unspecified (principal); F17.210 Nicotine dependence, cigarettes, uncomplicated; E11.9 Type 2 diabetes mellitus without complications; Z85.3 Personal history of malignant neoplasm of breast; Z88.1 Allergy status to other antibiotic agents; Z88.5 Allergy status to narcotic agent; Z88.6 Allergy status to analgesic agent; Z90.13 Acquired absence of bilateral breasts and nipples
CPT/HCPCS: 36415; 71045; 80048; 80076; 83690; 84484; 85025; 87086; 87088; 93005; 99285; J2175; J2405; 81003; 81015

== ENCOUNTER 2018-02-08 10:54 | Emergency (ER) | payer OTHER ==
--- OUTSIDE RECORDS SUMMARY | 2018-02-08 10:56 | XMS REPORT | Continuity of Care Document ---
:1960 Author Organization [facility] Address [address] [place] [address] Phone Unavailable Care Team Providers Name Role Phone NO, PCP Primary Care Physician Unavailable Insurance Providers Guarantor Jeannette Ashby Address [address] [place] [address] Email NONE Payer [employer] Policy Number [id number] Subscriber's Name Jeannette Ashby Relationship 18 Self / Same As Patient Effective Date 17 Payer [employer] Policy Number [id number] Subscriber's Name Jeannette Ashby Relationship 18 Self / Same As Patient Effective Date 16 Advance Directives Directive Response Recorded Date/Time Does the patient have an advance directive? No 10/30/17 2:10am If yes, is advance directive on file with [facility]? No 08/25/16 6:50pm If not on file with [facility] will patient provide a copy? Yes 04/18/17 3:40am Do you have a Directive to Physician? No 10/30/17 12:03am Do you have a Medical Power of Joggle Press Operator? No 10/30/17 12:03am Do you have an out of hospital Do Not Resuscitate Order? No 10/30/17 12:03am Do you have any special needs we should be aware of? No 10/30/17 12:03am Do you have a support person here with you today? No 10/30/17 12:03am Did patient receive Notice of Privacy Practices? Yes 10/30/17 12:03am Did patient receive patient rights and responsibilities? Yes 10/30/17 12:03am Problems Medical Problem Onset Date Status Chest pain Unknown Cirrhosis Unknown Medications Current Home Medications Medication Dose Units Route Directions Days Qty Instructions Start Date Alprazolam 0.25 Mg Oral Twice A Day (Xanax) 0.25 Mg Tablet Hydrocodone 1 Tab Oral Every 4 Hours Bit/Acetaminop as needed for hen ([place] Pain 10-325 Tablet) 1 Each Tablet Insulin 35 Subcutaneously Every 12 Detemir Hours (Levemir) 100 Unit/1 Ml Vial Quetiapine 50 Mg Oral Bedtime 60 Tab Fumarate (Seroquel) 25 Mg Tablet Past Home Medications Medication Directions Ordered Status Insulin Aspart (Novolog Mix 70-30 Vial) 100 Units/Ml Discontinued Ml, Unknown Dose Insulin Glargine (Lantus) 100 Units/Ml Ml, Unknown Discontinued Dose Trazodone Hcl 50 Mg Tablet, Unknown Dose Oral Daily Discontinued Social History Social History Problem Response Recorded Date/Time Onset Date Status Hx Psychiatric Problems No 10/30/2017 2:10am Not Applicable Not Applicable Hx Eating Disorder No 10/30/2017 2:10am Not Applicable Not Applicable Hx Substance Use Disorder No 10/30/2017 2:10am Not Applicable Not Applicable Hx Depression No 10/30/2017 2:10am Not Applicable Not Applicable Hx Alcohol Use No 10/30/2017 2:10am Not Applicable Not Applicable Hx Substance Use Treatment No 10/30/2017 2:10am Not Applicable Not Applicable Hx Physical Abuse No 10/30/2017 2:10am Not Applicable Not Applicable Smoking Status Start Date Stop Date Current every day smoker Hospital Discharge Instructions No hospital discharge instruction information available. Plan of Care Discharge Date 10/31/17 1:30pm Disposition HOME, SELF-CARE Prescriptions See Medication Section Functional Status Query Response Date Recorded Assistive Devices None October 30, 2017 2:10am Ambulation Ability Independent October 30, 2017 2:10am Toileting Ability Independent October 30, 2017 2:10am Allergies, Adverse Reactions, Alerts Allergen Type Severity Reaction Status Last Updated Propoxyphene Allergy Unknown Migraines Active 01/06/17 Azithromycin Allergy Unknown Rash Active 01/06/17 Tramadol Allergy Unknown Insomnia for days Active 01/06/17 Immunizations No immunization information available. Vital Signs Acute Vital Signs Vital Response Date/Time Temperature (Fahrenheit) 97.0 degrees F (97.6 - 99.5) 10/31/2017 12:30pm Pulse Pulse Rate (adult) 89 bpm (60 - 90) 10/31/2017 12:30pm Respiratory Rate 18 bpm (12 - 24) 10/31/2017 12:30pm Blood Pressure 169/99 mm Hg 10/31/2017 12:30pm Height 5 ft 4 in 10/29/2017 9:38pm Weight 146.31 lb 10/30/2017 11:55pm Body Mass Index 25.1 kg/m^2 10/30/2017 11:55pm Results Laboratory Results Test Name Result Units Flags Reference Collection Result Comments Date/Time Date/Time Platelet SLIGHTLY 01/06/2017 01/06/2017 Estimate DECREASED 3:44pm 5:00pm Platelet FEW LARGE 01/06/2017 01/06/2017 No platelet Morphology 3:44pm 5:00pm clumps seen on Comment smear Red Cell NORMAL 01/06/2017 01/06/2017 Morphology 3:44pm 5:00pm Comment Urine Hyaline 2-5 H 0-1 01/06/2017 01/06/2017 Casts 1:10pm 2:57pm Urine Yeast FEW H NONE 01/06/2017 01/06/2017 1:10pm 2:57pm Amylase Level 49 U/L 25-125 04/18/2017 04/18/2017 1:34am 2:32am Lipase 51 U/L 8-78 04/18/2017 04/18/2017 1:34am 2:32am Prothrombin Time 12.9 seconds 11.9-14.5 05/19/2017 05/19/2017 7:44pm 8:34pm Prothromb Time 0.93 05/19/2017 05/19/2017 Oral Anticoagulant Therapy INR Values: International 7:44pm 8:34pm 1. Low Intensity Therapy 1.5 - 2.0 Ratio 2. Moderate Intensity Therapy 2.0 - 3.0 3. High Intensity Therapy(1) 2.5 - 3.5 4. High Intensity Therapy(2) 3.0 - 4.0 5. Panic Value INR > 5.0 Activated 27.5 seconds 23.8-35.5 05/19/2017 05/19/2017 Partial 7:44pm 8:34pm Thromboplast Time Urine Color STRAW YELLOW 05/19/2017 05/19/2017 6:53pm 7:42pm Urine Clarity CLEAR CLEAR 05/19/2017 05/19/2017 6:53pm 7:42pm Urine Specific 1.005 L 1.010-1.02 05/19/2017 05/19/2017 [place] 5 6:53pm 7:42pm Urine pH 7 5 - 7 05/19/2017 05/19/2017 6:53pm 7:42pm Urine Leukocyte NEGATIVE NEGATIVE 05/19/2017 05/19/2017 Esterase 6:53pm 7:42pm Urine Nitrite NEGATIVE NEGATIVE 05/19/2017 05/19/2017 6:53pm 7:42pm Urine Protein NEGATIVE NEGATIVE 05/19/2017 05/19/2017 6:53pm 7:42pm Urine Glucose 3+ H NEGATIVE 05/19/2017 05/19/2017 (UA) 6:53pm 7:42pm Urine Ketones NEGATIVE NEGATIVE 05/19/2017 05/19/2017 6:53pm 7:42pm Urine 1 mg/dL 0.2 - 1 05/19/2017 05/19/2017 Urobilinogen 6:53pm 7:42pm Urine Bilirubin NEGATIVE NEGATIVE 05/19/2017 05/19/2017 6:53pm 7:42pm Urine Blood NEGATIVE NEGATIVE 05/19/2017 05/19/2017 6:53pm 7:42pm Urine WBC 0-5 /HPF 0-5 05/19/2017 05/19/2017 6:53pm 8:13pm Urine RBC NONE /HPF 0-5 05/19/2017 05/19/2017 6:53pm 8:13pm Urine Bacteria FEW /HPF NONE 05/19/2017 05/19/2017 6:53pm 8:13pm Urine Epithelial FEW /LPF NONE 05/19/2017 05/19/2017 Cells 6:53pm 8:13pm Magnesium Level 1.7 MG/DL 1.3-2.1 05/19/2017 05/19/2017 7:44pm 8:42pm White Blood 6.48 x10e3/uL 4.8-10.8 05/23/2017 05/23/2017 Count 8:48pm 8:53pm Red Blood Count 4.15 x10e6/uL 3.6-5.1 05/23/2017 05/23/2017 8:48pm 8:53pm Hemoglobin 12.4 g/dL 12.0-16.0 05/23/2017 05/23/2017 8:48pm 8:53pm Hematocrit 36.8 % 34.2-44.1 05/23/2017 05/23/2017 8:48pm 8:53pm Mean Corpuscular 88.7 fL 81-99 05/23/2017 05/23/2017 Volume 8:48pm 8:53pm Mean Corpuscular 29.9 pg 28-32 05/23/2017 05/23/2017 Hemoglobin 8:48pm 8:53pm Mean Corpuscular 33.7 g/dL 31-35 05/23/2017 05/23/2017 Hemoglobin 8:48pm 8:53pm Concent Red Cell 14.0 % 11.7-14.4 05/23/2017 05/23/2017 Distribution 8:48pm 8:53pm Width Platelet Count 54 x10e3/uL L 140-360 05/23/2017 05/23/2017 8:48pm 8:53pm Neutrophils (%) 72.3 % 38.7-80.0 05/23/2017 05/23/2017 (Auto) 8:48pm 8:53pm Lymphocytes (%) 21.1 % 18.0-39.1 05/23/2017 05/23/2017 (Auto) 8:48pm 8:53pm Monocytes (%) 5.1 % 4.4-11.3 05/23/2017 05/23/2017 (Auto) 8:48pm 8:53pm Eosinophils (%) 0.9 % 0.0-6.0 05/23/2017 05/23/2017 (Auto) 8:48pm 8:53pm Basophils (%) 0.3 % 0.0-1.0 05/23/2017 05/23/2017 (Auto) 8:48pm 8:53pm IM GRANULOCYTES 0.3 % 0.0-1.0 05/23/2017 05/23/2017 % 8:48pm 8:53pm Neutrophils # 4.7 2.1-6.9 05/23/2017 05/23/2017 (Auto) 8:48pm 8:53pm Lymphocytes # 1.4 1.0-3.2 05/23/2017 05/23/2017 (Auto) 8:48pm 8:53pm Monocytes # 0.3 0.2-0.8 05/23/2017 05/23/2017 (Auto) 8:48pm 8:53pm Eosinophils # 0.1 0.0-0.4 05/23/2017 05/23/2017 (Auto) 8:48pm 8:53pm Basophils # 0.0 0.0-0.1 05/23/2017 05/23/2017 (Auto) 8:48pm 8:53pm Absolute 0.02 x10e3/uL 0-0.1 05/23/2017 05/23/2017 Immature 8:48pm 8:53pm Granulocyte (auto Sodium Level 139 mmol/L # 136-145 05/24/2017 05/24/2017 12:32am 12:57am Potassium Level 2.9 mmol/L #*L 3.5-5.1 05/24/2017 05/24/2017 Results called to [CORINE LIRA/ER] at 0053 on 05/24/17 by 12:32am 12:57am Anny Grace RB [place]. Chloride Level 109 mmol/L H 98-107 05/24/2017 05/24/2017 12:32am 12:57am Carbon Dioxide 20 mmol/L L 22-29 05/24/2017 05/24/2017 Level 12:32am 12:57am Anion Gap 12.9 mmol/L 8-16 05/24/2017 05/24/2017 12:32am 12:57am Blood Urea 6 mg/dL L 7-26 05/24/2017 05/24/2017 Nitrogen 12:32am 12:57am Creatinine 0.67 mg/dL 0.57-1.11 05/24/2017 05/24/2017 12:32am 12:57am BUN/Creatinine 9 6-25 05/24/2017 05/24/2017 Ratio 12:32am 12:57am Estimat > 60 ML/MIN 60- 05/24/2017 05/24/2017 Ranges were taken from the National Kidney Disease Education Glomerular 12:32am 12:57am Program and the National [employer] literature. Filtration Rate Reference ranges: 60 or greater: Normal 16-59 (for 3 consecutive months): Chronic kidney disease 15 or less: Kidney failure Glucose Level 272 mg/dL H 74-118 05/24/2017 05/24/2017 12:32am 12:57am Calcium Level 8.1 mg/dL L 8.4-10.2 05/24/2017 05/24/2017 12:32am 12:57am Total Bilirubin 0.6 mg/dL 0.2-1.2 05/23/2017 05/23/2017 8:48pm 9:06pm Aspartate Amino 50 IU/L H 5-34 05/23/2017 05/23/2017 Transf 8:48pm 9:06pm (AST/SGOT) Alanine 46 IU/L 0-55 05/23/2017 05/23/2017 Aminotransferase 8:48pm 9:06pm (ALT/SGPT) Total Protein 7.3 g/dL 6.5-8.1 05/23/2017 05/23/2017 8:48pm 9:06pm Albumin 3.1 g/dL L 3.5-5.0 05/23/2017 05/23/2017 8:48pm 9:06pm Globulin 4.2 g/dL H 2.3-3.5 05/23/2017 05/23/2017 8:48pm 9:06pm Albumin/Globulin 0.7 L 0.8-2.0 05/23/2017 05/23/2017 Ratio 8:48pm 9:06pm Alkaline 196 IU/L H 40-150 05/23/2017 05/23/2017 Phosphatase 8:48pm 9:06pm Bedside Glucose 310 mg/dL H 70-120 10/31/2017 10/31/2017 Meter ID: 11:20am 11:44am [id number] Creatine Kinase 35 IU/L 29-168 10/30/2017 10/30/2017 7:10pm 7:44pm Creatine Kinase 0.80 ng/mL 0-5.0 10/30/2017 10/30/2017 MB 7:10pm 7:51pm Troponin I < 0.001 ng/mL 0-0.300 10/30/2017 10/30/2017 7:10pm 7:51pm Vitamin B12 789 pg/mL 213-816 10/30/2017 10/30/2017 Level 3:31am 10:03am Folate 8.8 ng/mL 7.0-15.4 10/30/2017 10/30/2017 3:31am 10:03am Thyroid 2.053 uIU/mL 0.350-4.94 10/30/2017 10/30/2017 Stimulating 0 3:31am 9:51am Hormone (TSH) Microbiology Results Procedure Source Organism/Result Collection Result Result Date/Time Date/Time Status Blood Culture Blood NO GROWTH AFTER 5 05/19/2017 05/24/2017 Final DAYS, FINAL REPORT 7:53pm 8:02pm Procedures Procedure Status Date Provider(s) Computed tomography of chest without contrast Active 10/30/17 ACACIA KUMAR MD Encounters Encounter Location Arrival/Admit Date Discharge/Depart Date Attending Provider Discharged [facility] 10/30/17 1:06am 10/31/17 1:30pm ACACIA KMUAR MD Inpatient (obs) Patients [facility] Departed [facility] 05/23/17 7:37pm 05/24/17 1:16am [facility] Emergency Room Patients [facility] JEF Hess MD [place] Departed [facility] 05/19/17 5:55pm 05/20/17 2:48am JUNO CARTER Emergency Room Patients [facility] [place] Registered [facility] 04/18/17 1:09am [facility] Emergency Room Patients [facility] JEF Hess MD [place] Departed [facility] 01/06/17 12:49pm 01/06/17 7:28pm SAMUEL TAPIA Emergency Room Patients [facility] [place]
--- OUTSIDE RECORDS SUMMARY | 2018-02-08 10:56 | XMS REPORT ---
:1960 Author [facility] Address [address] [address] Care Team Providers Name Role Phone ACACIA KUMAR Unavailable Unavailable JEF CAMPOS Unavailable Unavailable Problems This patient has no known problems. Allergies, Adverse Reactions, Alerts This patient has no known allergies or adverse reactions. Medications This patient has no known medications. Results Test Description Test Time Test Comments Text Results Atomic Results Result Comments Stress Test - [address] Treadmill ONLY [place], [place] [address] Patient Name : GERA PALUMBO MR #: [id number] : 1960 Age/Sex: 57/F Adm Physician : ACACIA KUMAR MD Admit Date : 10/30/17 Location : [facility] Room/Bed : [place] [address] REPORT: Cardiology Report DATE OF STUDY: October 31, 2017 LEXISCAN MYOVIEW The patient had resting perfusion images after an injection of 11 millicuries of technetium-99m Myoview. Later, due to inability to exercise, she was given Lexiscan 0.4 mg intravenously, and shortly afterwards 33 millicuries of technetium-99m Myoview. Perfusion images were taken by rotational tomography. Comparison resting and Lexiscan stress images show no evidence of any perfusion defect. Uptake is smooth and regular throughout. No suggestion of any scar or any ischemia. Additionally, gaited wall motion images were obtained and calculated ejection fraction normal at 54% without regional wall motion abnormality. FINAL IMPRESSION 1. Normal Lexiscan Myoview for perfusion. 2. Normal left ventricular function, calculated ejection fraction 54%. Job#: [id number] GH cc: ACACIA KUMAR MD Signature Date Dictated By: VANNESA ANTON MD Transcribed By: SMEDS on 10/31/17 <Electronically signed by VANNESA ANTON MD><<Signature on File>>11/02/17 1416 COPY TO: CT CHEST WO [place] [address] Patient Name: GERA PALUMBO MR #: [id number] : 1960 Age/Sex: 57/F Req #: [id number] Adm Physician: ACACIA KUMAR MD Ordered by: ACACIA KUMAR MD Report #: [id number] Location: [facility] Room/Bed: [place] [address] Procedure: [id number] CT/CT CHEST WO Exam Date: 10/30/17 Exam Time: 1115 REPORT STATUS: Signed PROCEDURE: CT CHEST WITHOUT CONTRAST CT scan of the chest WITHOUT intravenous contrast, using standard protocol. TECHNIQUE: The chest was scanned utilizing a multidetector helical scanner from the apex to the level of the adrenal glands. No IV contrast was administered as per physician request. Coronal and sagittal multiplanar reformations were obtained. COMPARISON: None. INDICATIONS: CHEST PAIN FINDINGS: Lines/tubes: None. Lungs and Airways: The lungs and airways are normal with no focal abnormality demonstrated. Right upper lobe scarring. Bibasilar dependent atelectasis. Pleura: The pleural spaces are clear. Heart and mediastinum: The thyroid gland is normal. No significant mediastinal, hilar or axillary lymphadenopathy is seen. The heart and pericardium are within normal limits. Soft tissues: Normal. Abdomen: Nodular contour of the liver. The spleen is enlarged, measuring 17 cm in AP length. Multiple splenic and esophageal varices are partially visualized. Trace ascites is present in the right upper quadrant. The adrenal glands are normal. Bones: The visualized bony thorax is within normal limits. IMPRESSION: 1. No acute abnormality of the chest. 2. Hepatic parenchymal appearance consistent with cirrhotic morphology. 3. Splenomegaly and varices consistent with portal hypertension. Dictated by: Acacia Beaulieu M.D. on 10/30/2017 at 13:18 Electronically approved by: Acacia Beaulieu M.D. on 10/30/2017 at 13:18 Dictated By: ACACIA BEAULIEU MD 17 Transcribed By: MARLEE on 10/30/171317 COPY TO: ACACIA KUMAR MD ABDOMEN ACUTE [address] SERIES W/PA CXR [place] [address] Patient Name: GERA PALUMBO MR #: [id number] : 1960 Age/Sex: 56/F Req #: [id number] Adm Physician: Ordered by: JEF CAMPOS MD Report #: [id number] Location: ER Room/Bed: Procedure: [id number] DX/ABDOMEN ACUTE SERIES W/PA CXR Exam Date: 04/18/17 Exam Time: 0210 REPORT STATUS: Signed EXAM: ABDOMEN ACUTE SERIES W/PA CXR, supine and erect views of the [...]
--- OUTSIDE RECORDS SUMMARY | 2018-02-08 10:56 | XMS REPORT | Clinical Summary ---
:1960 Author Organization [facility] Address [address] [place] [id number] Phone Care Team Providers Name Role Phone Unavailable Primary Care Provider Unavailable Allergies Not on File Current Medications Not on file Active Problems Not on file Social History Tobacco Use Types Packs/Day Years Used Date Never Assessed Sex Assigned at Date Recorded Not on file Last Filed Vital Signs Not on file Plan of Treatment Not on file Results Not on fileafter 02/07/2017
[2018-02-08 13:14] LABS: Urine Blood NEGATIVE (NEG); Urine Glucose 2+ (NEG); Urine Protein TRACE (NEG); Urine pH 6.5 (5.0-7.0)
[2018-02-08 13:18] LABS: Absolute Lymphocytes (CBC) 0.8 K/uL (0.7-4.9); Absolute Monocytes 0.3 K/uL (0.1-1.3); Absolute Neutrophil 4.7 K/uL (1.8-8.0); Basophils % 0.3 % (0-1.3); Eosinophils % 0.3 % (0-4.4); Hematocrit 37.7 % (36.0-45.0); Lymphocytes % 13.9 % (15.3-44.8); MCH 26.3 pg (27.0-35.0); MCV 80.8 fL (80-100); MPV 7.7 fL (7.6-11.3); Monocytes % 5.6 % (3.3-12.3); RBC Red Blood Cell Count 4.66 M/uL (3.86-4.86)
[2018-02-08 13:26] LABS: Urine Bacteria <20 /HPF (<20); Urine Culture Reflex Order NOT NEEDED; Urine Mucus SLIGHT /HPF (NONE SEEN); Urine RBC <5 /HPF (NONE SEEN)
[2018-02-08] MEDS ORDERED: ONDANSETRON 4 MG/2 ML VIAL ONE (13:35)
[2018-02-08] MEDS ORDERED: MORPHINE 4 MG/ML SYR ONE (13:35)
[2018-02-08] MEDS ORDERED: NA CHLORIDE 0.9% 1,000 ML ONE (13:36)
[2018-02-08 13:40] LABS: ALT/SGPT 60 U/L (12-78); AST/SGOT 63 U/L (15-37); Albumin 3.1 g/dL (3.4-5.0); Alkaline Phosphatase 184 U/L (45-117); Amylase Level 45 U/L (25-115); BUN Blood Urea Nitrogen 12 mg/dL (7-18); Bicarbonate 26 mmol/L (21-32); Bilirubin Direct 0.2 mg/dL (0-0.2); Bilirubin Total 0.5 mg/dL (0.2-1.0); Glucose Level 169 mg/dL (74-106); Lipase 128 U/L (73-393); Potassium 3.6 mmol/L (3.5-5.1); Protein, Total 7.5 g/dL (6.4-8.2); Sodium Level 140 mmol/L (136-145)
[2018-02-08] MEDS ORDERED: FENTANYL CITR 100 MCG/2 ML ONE (14:33)
--- NOTE | 2018-02-08 15:33 | RAD REPORT ---
EXAM DESCRIPTION: CT - Abdomen Pelvis W Contrast - 02/08/2018 3:07 pm CLINICAL HISTORY: Abdominal pain, fever, chills, history of breast cancer, colitis history and COPD history, history of liver ablation procedure COMPARISON: CT study October 2017 TECHNIQUE: Biphasic, helical CT imaging of the abdomen and pelvis was performed following 100 ml non -ionic IV contrast. Oral contrast was given. All CT scans are performed using dose optimization technique as appropriate and may include automated exposure control or mA/KV adjustment according to patient size. FINDINGS: No suspicious findings in the lung bases. Liver is prominent in size with a pronounced nodular liver capsule. Nodularity is similar to the prio r study. In the posterior inferior right lobe of the liver there is a 6 cm x 3.7 cm area of diminishe d attenuation. Patient detailed a history of liver lesion ablation. This irregularly shaped area of d iminished attenuation would be compatible with that procedure. Configuration or appearance is not typ ical for neoplastic lesion. No other focal or significant finding within the liver parenchyma. Absces s within the ablated parenchyma is not suspected. Splenomegaly to 18 cm noted. No pancreatic acute finding. Gallbladder is absent. No biliary tree dila tation. Symmetric renal function is seen with no hydronephrosis or suspicious renal mass. No urinary bladder abnormality. Uterus is absent. No gastric dilatation or wall thickening. No acute large or small bowel finding. Moderate stool volum e in the colon. No free air, free fluid or inflammatory stranding. Postsurgical changes are noted t o the anterior abdominal wall from reconstruction. No hernia, mass or bulky lymphadenopathy. No adren al abnormality. No suspicious bony findings. IMPRESSION: Cirrhosis or hepatic parenchymal disease changes. There is a 6 x 4 cm irregularly shaped low-density mass effect in the posterior inferior right lobe new from October. There finding is believed to be the sequela of the historically stated liver ablation. Primary or aileen plastic process is a lesser consideration. No imaging is available demonstrating the liver lesion sub jected to ablation. Splenomegaly without focal splenic finding. No acute GI or process identified.
--- NOTE | 2018-02-08 15:45 | EDPHYS ---
Physician Documentation [facility] Name: Jeannette Ashby Age: 57 yrs Sex: Female : 1960 Arrival Date: 02/08/2018 Time: 10:54 Bed 15 Private MD: ED Physician Oscar Anthony HPI: 02/08 12:50 This 57 yrs old Female presents to ER via Ambulatory with complaints of kav Abdominal Pain. 12:50 The patient presents with abdominal pain in the right upper quadrant. Onset: The kav symptoms/episode began/occurred acutely, 1 day(s) ago. The symptoms do not radiate. Associated signs and symptoms: Pertinent positives: nausea, Pertinent negatives: diarrhea. The symptoms are described as achy. Modifying factors: The symptoms are alleviated by oxycodone and methadone. Severity of pain: At its worst the pain was severe just prior to arrival. The patient has experienced a previous episode, approximately 2 weeks ago. The patient has been recently seen by a physician: [facility] approximately 2 weeks ago for a Liver Ablation. PMHX: Liver Cancer \T\ Hepatitis B and Hepatitis C. 12:53 Patient reports that she is supposed to see Dr. Levy next week for pain managment.. kav 15:40 Patient reports that she is out of her Methadone and Oxycodone and needs to make an kav appointment to f/u with Dr. Ochoa. Historical: - Allergies: 11:06 Darvocet-N 100; aj 11:06 tramadol; aj 11:06 Zithromax; aj 11:06 Erythromycin; aj - Home Meds: 11:06 lisinopril 40 mg Oral tab 1 tab once daily [Active]; Oxycodone HCl Oral [Active]; aj Methadone Oral [Active]; Novolog 100 unit/mL Sub-Q soln 8 units [Active]; Lantus 100 unit/mL Sub-Q soln 40 units [Active]; Seroquel 50 mg Oral tab 1 tab every night [Active]; Phenergan Oral [Active]; Cymbalta Oral [Active]; - PMHx: 11:06 Anxiety; Cancer, Breast; Colitis; COPD; Depression; Diabetes - IDDM; MUSCLE WEAKNESS; aj Chronic pain; - PSHx: 11:06 Appendectomy; Hysterectomy; Cholecystectomy; ; bilateral mastectomy; breast aj reconstructive surgery; Liver Ablation; - Immunization history:: Adult Immunizations up to date. - Social history:: Smoking status: Patient uses tobacco products, smokes one-half pack cigarettes per day. - Ebola Screening: : Patient negative for fever greater than or equal to 101.5 degrees Fahrenheit, and additional compatible Ebola Virus Disease symptoms Patient denies exposure to infectious person Patient denies travel to an Ebola-affected area in the 21 days before illness onset No symptoms or risks identified at this time. - Family history:: not pertinent. - Hospitalizations: : No recent hospitalization is reported. ROS: 12:53 Constitutional: Negative for fever, chills, and weight loss, Eyes: Negative for injury, kav pain, redness, and discharge, ENT: Negative for injury, pain, and discharge, Neck: Negative for injury, pain, and swelling, Cardiovascular: Negative for chest pain, palpitations, and edema, Respiratory: Negative for shortness of breath, cough, wheezing, and pleuritic chest pain, Back: Negative for injury and pain, : Negative for injury, bleeding, discharge, and swelling, MS/Extremity: Negative for injury and deformity, Skin: Negative for injury, rash, and discoloration, Neuro: Negative for headache, weakness, numbness, tingling, and seizure, Psych: Negative for depression, anxiety, suicide ideation, homicidal ideation, and hallucinations, Allergy/Immunology: Negative for hives, rash, and allergies, Endocrine: Negative for neck swelling, polydipsia, polyuria, polyphagia, and marked weight changes, Hematologic/Lymphatic: Negative for swollen nodes, abnormal bleeding, and unusual bruising. 12:53 Abdomen/GI: Positive for abdominal pain, nausea. Exam: 12:53 Constitutional: This is a well developed, well nourished patient who is awake, alert, kav and in no acute distress. Head/Face: Normocephalic, atraumatic. Eyes: Pupils equal round and reactive to light, extra-ocular motions intact. Lids and lashes normal. Conjunctiva and sclera are non-icteric and not injected. Cornea within normal limits. Periorbital areas with no swelling, redness, or edema. ENT: Nares patent. No nasal discharge, no septal abnormalities noted. Tympanic membranes are normal and external auditory canals are clear. Oropharynx with no redness, swelling, or masses, exudates, or evidence of obstruction, uvula midline. Mucous membranes moist. Neck: Trachea midline, no thyromegaly or masses palpated, and no cervical lymphadenopathy. Supple, full range of motion without nuchal rigidity, or vertebral point tenderness. No Meningismus. Chest/axilla: Normal chest wall appearance and motion. Nontender with no deformity. No lesions are appreciated. Cardiovascular: Regular rate and rhythm with a normal S1 and S2. No gallops, murmurs, or rubs. Normal PMI, no JVD. No pulse deficits. Respiratory: Lungs have equal breath sounds bilaterally, clear to auscultation and percussion. No rales, rhonchi or wheezes noted. No increased work of breathing, no retractions or nasal flaring. Back: No spinal tenderness. No costovertebral tenderness. Full range of motion. Skin: Warm, dry with normal turgor. Normal color with no rashes, no lesions, and no evidence of cellulitis. MS/ Extremity: Pulses equal, no cyanosis. Neurovascular intact. Full, normal range of motion. Neuro: Awake and alert, GCS 15, oriented to person, place, time, and situation. Cranial nerves II-XII grossly intact. Motor strength 5/5 in all extremities. Sensory grossly intact. Cerebellar exam normal. Normal gait. Psych: Awake, alert, with orientation to person, place and time. Behavior, mood, and affect are within normal limits. 12:53 Abdomen/GI: Inspection: obese Bowel sounds: normal, in all quadrants, Palpation: moderate abdominal tenderness, in all quadrants. Vital Signs: 11:06 BP 192 / 91; Pulse 89; Resp 17; Temp 98.3; Pulse Ox 99% on R/A; Weight 63.5 kg; Height aj 5 ft. 4 in. (162.56 cm); 13:00 BP 154 / 80; Pulse 62; Resp 18; Pulse Ox 99% on R/A; rb1 14:00 BP 158 / 79; Pulse 62; Resp 19; Pulse Ox 96% on R/A; rb1 15:00 BP 155 / 68; Pulse 71; Resp 17; Pulse Ox 100% on R/A; rb1 16:00 BP 174 / 79; Pulse 78; Resp 17; Pulse Ox 95% on R/A; rb1 11:06 Body Mass Index 24.03 (63.50 kg, 162.56 cm) aj MDM: 12:06 Medical screening is not applicable. kav 15:33 Data reviewed: vital signs, nurses notes, lab test result(s), CBC, urinalysis, EKG. kav Awaiting: CT scan results. 15:40 Data reviewed: radiologic studies, CT scan. kav 02/08 12:14 Order name: Amylase, Serum; Complete Time: 13:52 v 02/08 12:14 Order name: Basic Metabolic Panel; Complete Time: 13:52 02/08 12:14 Order name: CBC with Diff; Complete Time: 13:52 02/08 12:14 Order name: Creatinine for Radiology; Complete Time: 13:52 v 02/08 12:14 Order name: Hepatic Function; Complete Time: 13:52 02/08 12:14 Order name: Lipase; Complete Time: 13:52 v 02/08 12:14 Order name: Urine Microscopic Only; Complete Time: 13:52 02/08 12:14 Order name: IV Saline Lock; Complete Time: 13:37 02/08 13:03 Order name: Urine Dipstick--Ancillary (enter results); Complete Time: 13:52 1 02/08 14:38 Order name: CT Abd/Pelvis - W/Contrast; Complete Time: 15:34 02/08 12:14 Order name: Labs collected and sent; Complete Time: 13:37 02/08 12:14 Order name: Urine Dipstick-Ancillary (obtain specimen); Complete Time: 13:03 02/08 13:57 Order name: VS Recheck; Complete Time: 14:26 kav Administered Medications: 13:33 Drug: NS 0.9% 1000 ml Route: IV; Rate: 125 ml/hr; Site: right hand; rb1 16:10 Follow up: IV Status: Completed infusion; IV Intake: 275ml rb1 13:34 Drug: Zofran 4 mg Route: IVP; Site: right hand; rb1 14:10 Follow up: Response: No adverse reaction; Nausea is decreased rb1 13:36 Drug: morphine 4 mg Route: IVP; Site: right hand; rb1 14:10 Follow up: Response: No adverse reaction; Pain is unchanged, physician notified rb1 14:33 Drug: fentaNYL (PF) 25 mcg Route: IVP; Site: right hand; rb1 14:49 Follow up: Response: No adverse reaction; Pain is decreased rb1 Disposition: 16:21 Co-signature as Attending Physician, Oscar Anthony MD I agree with the assessment and kdr plan of care. Disposition: 02/08/18 15:44 Discharged to Home. 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 - Condition is Stable. - Discharge Instructions: Abdominal Pain, Adult, Hepatitis B, Hepatitis C. - Prescriptions for Tylenol- Codeine #3 300-30 mg Oral Tablet - take 2 tablets by ORAL route every 6 hours As needed; 30 tablet. Zofran 8 mg Oral Tablet - take 1 tablet by ORAL route every 12 hours As needed; 20 tablet. - Medication Reconciliation Form, Thank You Letter, Antibiotic Education, Prescription Opioid Use form. - Follow up: Private Physician; When: 2 - 3 days; Reason: Recheck today's complaints, Continuance of care, Re-evaluation by your physician. - Problem is new. - Symptoms have improved. - Notes: Please f/u with Dr. Ochoa/Pain Management in 3-5 days for post-ED evaluation and treatment. Signatures: Dispatcher [employer] EDMS Binta Deng, RN RN Oscar Ferrari MD MD kdr Vern, Katherine, COMBAT SYSTEMS OPERATOR COMBAT SYSTEMS OPERATOR Radha Stanley, RN RN rb1 Corrections: (The following items were deleted from the chart) 16:12 15:44 02/08/2018 15:44 Discharged to Home. 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 Condition is Stable. Discharge Instructions: Abdominal Pain, Adult, Hepatitis B, Hepatitis C. Forms are Medication Reconciliation Form, Thank You Letter, Antibiotic Education, Prescription Opioid Use. Follow up: Private Physician; When: 2 - 3 days; Reason: Recheck today's complaints, Continuance of care, Re-evaluation by your physician. Problem is new. Symptoms have improved. kav
--- NOTE | 2018-02-08 15:45 | ER ---
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 aj Patient reports she is out of her pain medication. Denies fever. Transition of care: patient was not received from another setting of care. Onset of symptoms was February 07, 2018. Risk Assessment: Do you want to hurt yourself or someone else? Patient reports no desire to harm self or others. Initial Sepsis Screen: Does the patient meet any 2 criteria? No. Patient's initial sepsis screen is negative. Does the patient have a suspected source of infection? No. Patient's initial sepsis screen is negative. Care prior to arrival: None. 11:03 Method Of Arrival: Ambulatory 11:03 Acuity: VERONICA 3 aj Triage Assessment: 11:06 General: Appears in no apparent distress. comfortable, Behavior is calm, cooperative, aj appropriate for age. Pain: Complains of pain in right upper quadrant and left upper quadrant. Neuro: Level of Consciousness is awake, alert, obeys commands, Oriented to person, place, time, situation, Appropriate for age. Respiratory: Airway is patent Respiratory effort is even, unlabored, Respiratory pattern is regular, symmetrical. GI: Reports upper abdominal pain. Derm: Skin is intact, is healthy with good turgor, Skin is pink, warm \T\ dry. normal. Historical: - Allergies: 11:06 Darvocet-N 100; aj 11:06 tramadol; aj 11:06 Zithromax; aj 11:06 Erythromycin; aj - Home Meds: 11:06 lisinopril 40 mg Oral tab 1 tab once daily [Active]; Oxycodone HCl Oral [Active]; aj Methadone Oral [Active]; Novolog 100 unit/mL Sub-Q soln 8 units [Active]; Lantus 100 unit/mL Sub-Q soln 40 units [Active]; Seroquel 50 mg Oral tab 1 tab every night [Active]; Phenergan Oral [Active]; Cymbalta Oral [Active]; - PMHx: 11:06 Anxiety; Cancer, Breast; Colitis; COPD; Depression; Diabetes - IDDM; MUSCLE WEAKNESS; aj Chronic pain; - PSHx: 11:06 Appendectomy; Hysterectomy; Cholecystectomy; ; bilateral mastectomy; breast aj reconstructive surgery; Liver Ablation; - Immunization history:: Adult Immunizations up to date. - Social history:: Smoking status: Patient uses tobacco products, smokes one-half pack cigarettes per day. - Ebola Screening: : Patient negative for fever greater than or equal to 101.5 degrees Fahrenheit, and additional compatible Ebola Virus Disease symptoms Patient denies exposure to infectious person Patient denies travel to an Ebola-affected area in the 21 days before illness onset No symptoms or risks identified at this time. - Family history:: not pertinent. - Hospitalizations: : No recent hospitalization is reported. Screenin:45 Abuse screen: Denies threats or abuse. Nutritional screening: No deficits noted. rb1 Tuberculosis screening: No symptoms or risk factors identified. Fall Risk None identified. Assessment: 11:45 General: Appears uncomfortable, Behavior is calm, cooperative, Denies fever. Pain: rb1 Complains of pain in right upper quadrant Pain currently is 8 out of 10 on a pain scale. Pain began 1 day ago. Neuro: Level of Consciousness is awake, alert, obeys commands, Oriented to person, place, time, situation. Cardiovascular: Capillary refill < 3 seconds is brisk in bilateral fingers. Respiratory: Airway is patent Respiratory effort is even, unlabored, Respiratory pattern is regular, symmetrical. GI: Bowel sounds present X 4 quads. Abdomen is tender to palpation in right upper quadrant Reports nausea. : Derm: Skin is pink, warm \T\ dry. Musculoskeletal: Range of motion: intact in all extremities. 12:40 Reassessment: Patient appears in no apparent distress at this time. No changes from rb1 previously documented assessment. 13:37 Reassessment: Patient appears in no apparent distress at this time. Patient and/or rb1 family updated on plan of care and expected duration. Pain level reassessed. Patient is alert, oriented x 3, equal unlabored respirations, skin warm/dry/pink. 14:25 Reassessment: Patient appears in no apparent distress at this time. Patient and/or rb1 family updated on plan of care and expected duration. Pain level reassessed. Patient is alert, oriented x 3, equal unlabored respirations, skin warm/dry/pink. pain unchanged; provider notified. 15:22 Reassessment: Patient appears in no apparent distress at this time. No changes from [facility] previously documented assessment. 16:00 Reassessment: Patient appears in no apparent distress at this time. Patient and/or rb1 family updated on plan of care and expected duration. Pain level reassessed. Patient is alert, oriented x 3, equal unlabored respirations, skin warm/dry/pink. Vital Signs: 11:06 BP 192 / 91; Pulse 89; Resp 17; Temp 98.3; Pulse Ox 99% on R/A; Weight 63.5 kg; Height aj 5 ft. 4 in. (162.56 cm); 13:00 BP 154 / 80; Pulse 62; Resp 18; Pulse Ox 99% on R/A; rb1 14:00 BP 158 / 79; Pulse 62; Resp 19; Pulse Ox 96% on R/A; rb1 15:00 BP 155 / 68; Pulse 71; Resp 17; Pulse Ox 100% on R/A; rb1 16:00 BP 174 / 79; Pulse 78; Resp 17; Pulse Ox 95% on R/A; rb1 11:06 Body Mass Index 24.03 (63.50 kg, 162.56 cm) ED Course: 10:54 Patient arrived in ED. as 11:04 Triage completed. aj 11:06 Arm band placed on right wrist. Patient placed in waiting room, Patient notified of wait time. 11:45 Patient has correct armband on for positive identification. Bed in low position. Call [facility] light in reach. Side rails up X 1. Pulse ox on. NIBP on. 12:06 Crystal Yanez FNP is PHCP. kav 12:06 Oscar Anthony MD is Attending Physician. kav 12:36 Radha Conway, PANKAJ is Primary Nurse. rb1 12:40 Inserted saline lock: 22 gauge in right hand, using aseptic technique. Blood collected. ss 15:[address] via stretcher. cw1 15:07 CT Abd/Pelvis - W/Contrast In Process Unspecified. EDMS 15:07 CT completed. Patient moved back from CT. cw1 16:12 No provider procedures requiring assistance completed. IV discontinued, intact, rb1 bleeding controlled, No redness/swelling at site. Pressure dressing applied. Administered Medications: 13:33 Drug: NS 0.9% 1000 ml Route: IV; Rate: 125 ml/hr; Site: right hand; rb1 16:10 Follow up: IV Status: Completed infusion; IV Intake: 275ml rb1 13:34 Drug: Zofran 4 mg Route: IVP; Site: right hand; rb1 14:10 Follow up: Response: No adverse reaction; Nausea is decreased rb1 13:36 Drug: morphine 4 mg Route: IVP; Site: right hand; rb1 14:10 Follow up: Response: No adverse reaction; Pain is unchanged, physician notified rb1 14:33 Drug: fentaNYL (PF) 25 mcg Route: IVP; Site: right hand; rb1 14:49 Follow up: Response: No adverse reaction; Pain is decreased rb1 Intake: 16:10 IV: 275ml; Total: 275ml. rb1 Outcome: 15:44 Discharge ordered by . johnna 16:12 Patient left the ED. rb1 16:12 Discharged to home ambulatory. rb1 16:12 Discharged to home ambulatory, with family. 16:12 Condition: stable 16:12 Discharge instructions given to patient, Instructed on discharge instructions, follow up and referral plans. medication usage, Demonstrated understanding of instructions, follow-up care, medications, Prescriptions given X 2. Signatures: Dispatcher [employer] Binta Saravia, RN Crystal Serrano, PRACTICE MANAGEMENT CONSULTANT PRACTICE MANAGEMENT CONSULTANT Cherelle Palomino Shelby, RN RN ss Woodley, Crystal cw1 Radha Conway, RN RN rb1
== END 2018-02-08 16:12 | disposition home or self-care (01) ==
LOC: ER 10:54
DX: R10.11 Right upper quadrant pain (principal); B19.10 Unspecified viral hepatitis B without hepatic coma; F17.210 Nicotine dependence, cigarettes, uncomplicated; E11.9 Type 2 diabetes mellitus without complications; Z79.4 Long term (current) use of insulin; Z88.6 Allergy status to analgesic agent; Z88.1 Allergy status to other antibiotic agents; Z88.3 Allergy status to other anti-infective agents
CPT/HCPCS: 36415; 74177; 80048; 80076; 82150; 83690; 85025; J2405; J3010; J7030; Q9967; 81003; 81015; 96361; 96374; 96375; 99284

== ENCOUNTER 2018-03-12 13:50 | Emergency (ER) | payer OTHER ==
--- OUTSIDE RECORDS SUMMARY | 2018-03-12 13:57 | XMS REPORT | Clinical Summary ---
:1960 [address] [facility] Address [address] [place] [id number] Phone Care Team Providers Name Role Phone Unavailable Primary Care Provider Unavailable Allergies Not on File Current Medications Not on file Active Problems Not on file Social History Tobacco Use Types Packs/Day Years Used Date Never Assessed Sex Assigned at Date Recorded Not on file Last Filed Vital Signs Not on file Plan of Treatment Not on file Results Not on fileafter 03/11/2017
--- OUTSIDE RECORDS SUMMARY | 2018-03-12 13:58 | XMS REPORT ---
:1960 [facility] Address [address] [address] Care Team Providers Name Role Phone ACAICA KUMAR Unavailable Unavailable JEF CAMPOS Unavailable Unavailable Problems This patient has no known problems. Allergies, Adverse Reactions, Alerts This patient has no known allergies or adverse reactions. Medications This patient has no known medications. Results Test Description Test Time Test Comments Text Results Atomic Results Result Comments Stress Test - [address] Treadmill ONLY [place], [place] [address] Patient Name : GERA PALUMBO MR #: [id number] : 1960 Age/Sex: 57/F Adm Physician : ACACIA KUMAR MD Admit Date : 10/30/17 Location : [facility] Room/Bed : [place] [address] REPORT: Cardiology Report DATE OF STUDY: October [...] ventricular function, calculated ejection fraction 54%. Job#: [id number] GH cc: ACACIA KUMAR MD Signature Date Dictated By: VANNESA ANTON MD Transcribed By: SMEDS on 10/31/17 <Electronically signed by VANNESA ANTON MD><<Signature on File>>11/02/17 1416 COPY TO: CT CHEST WO [place] [address] Patient Name: GERA PALUMBO MR #: [id number] : 1960 Age/Sex: 57/F Req #: [id number] Adm Physician: ACACIA KUMAR MD Ordered by: ACACIA KUMAR MD Report #: [id number] Location: [facility] Room/Bed: [place] [address] Procedure: [id number] CT/CT CHEST WO Exam Date: 10/30/17 Exam [...] COPY TO: ACACIA KUMAR MD ABDOMEN ACUTE [address] SERIES W/PA CXR [place] [address] Patient Name: GERA PALUMBO MR #: [id number] : 1960 Age/Sex: 56/F Req #: [id number] Adm Physician: Ordered by: JEF CAMPOS MD Report #: [id number] Location: ER Room/Bed: Procedure: [id number] DX/ABDOMEN ACUTE SERIES W/PA CXR Exam Date: [...]
[2018-03-12] MEDS ORDERED: NA CHLORIDE 0.9% 1,000 ML ONE (16:04)
[2018-03-12] MEDS ORDERED: INSULIN -REGULAR HUMAN 50 UNIT/0.5 ML ML ONE (16:04)
[2018-03-12] MEDS ORDERED: DICYCLOMINE HCL 10 MG CAP ONE (16:04)
--- NOTE | 2018-03-12 16:26 | EKG ---
Test Date: 2018-03-12 Test Time: 15:52:16 Acid Concentrator: SAMI MEASUREMENT RESULTS: Intervals: Rate: 75 GA: 156 QRSD: 114 QT: 436 QTc: 486 [place]: P: 51 GA: 156 QRS: -11 T: 61 INTERPRETIVE STATEMENTS: Normal sinus rhythm Incomplete left bundle branch block Moderate voltage criteria for LVH, may be normal variant Prolonged QT Abnormal ECG Compared to ECG 10/18/2017 08:13:13 Left bundle-branch block now present Left ventricular hypertrophy now present Prolonged QT interval now present Electronically Signed On 03-12-18 16:25:42 CDT by Serg Tamayo
--- NOTE | 2018-03-12 16:30 | RAD REPORT ---
EXAM DESCRIPTION: GARRETTChest Single View03/12/2018 4:22 pm CLINICAL HISTORY: abdominal pain /hypertension COMPARISON: Chest Single View dated 10/18/2017; FINDINGS: The lungs appear clear of acute infiltrate. The heart is normal size IMPRESSION: No acute abnormalities displayed
[2018-03-12 16:33] LABS: ALT/SGPT 41 U/L (12-78); AST/SGOT 49 U/L (15-37); Albumin 2.9 g/dL (3.4-5.0); Alkaline Phosphatase 179 U/L (45-117); Amylase Level 63 U/L (25-115); BUN Blood Urea Nitrogen 18 mg/dL (7-18); Bicarbonate 26 mmol/L (21-32); Bilirubin Direct 0.1 mg/dL (0-0.2); Bilirubin Total 0.4 mg/dL (0.2-1.0); Glucose Level 293 mg/dL (74-106); Lipase 342 U/L (73-393); Magnesium 1.8 mg/dL (1.8-2.4); Potassium 3.3 mmol/L (3.5-5.1); Protein, Total 7.2 g/dL (6.4-8.2); Sodium Level 140 mmol/L (136-145)
[2018-03-12 16:48] LABS: Urine Bacteria <20 /HPF (<20); Urine Culture Reflex Order NOT NEEDED; Urine RBC NONE SEEN /HPF (NONE SEEN)
[2018-03-12 17:09] LABS: Absolute Lymphocytes (CBC) 0.7 K/uL (0.7-4.9); Absolute Monocytes 0.3 K/uL (0.1-1.3); Absolute Neutrophil 2.9 K/uL (1.8-8.0); Basophils % 0.5 % (0-1.3); Eosinophils % 0.6 % (0-4.4); Hematocrit 34.6 % (36.0-45.0); Lymphocytes % 18.3 % (15.3-44.8); MCH 25.9 pg (27.0-35.0); MCV 79.1 fL (80-100); MPV 7.7 fL (7.6-11.3); Monocytes % 6.8 % (3.3-12.3); RBC Red Blood Cell Count 4.37 M/uL (3.86-4.86)
[2018-03-12 17:10] LABS: Protime INR 1.03
[2018-03-12] MEDS ORDERED: KETOROLAC 30 MG/ML INJ ONE (17:19)
[2018-03-12] MEDS ORDERED: MORPHINE 4 MG/ML SYR ONE (17:55)
--- NOTE | 2018-03-12 18:30 | RAD REPORT ---
EXAM DESCRIPTION: CTAbdomen Pelvis W Contrast - 03/12/2018 6:19 pm CLINICAL HISTORY: Abdominal pain. ABD PAIN COMPARISON: Abdomen Pelvis W Contrast dated 02/08/2018; Abdomen Pelvis W Contrast dated 10/15/2017; Abdomen Pelvis W Contrast dated 08/14/2017 TECHNIQUE: Biphasic CT imaging of the abdomen and pelvis was performed with 100 ml non-ionic IV cont rast. All CT scans are performed using dose optimization technique as appropriate and may include automated exposure control or mA/KV adjustment according to patient size. FINDINGS: The lung bases are clear. Prominent liver cirrhosis pattern is again noted. Area of diminished density in the right lobe of the liver inferiorly is again noted, likely related to prior ablation. Cholecystectomy clips are seen. S ignificant splenomegaly is present. Portal hypertension is seen. The adrenal glands, pancreas and kid neys are within normal limits. The benign cyst is present in the right kidney. No bowel obstruction, free air, free fluid or abscess. Aortoiliac atherosclerosis. Appendectomy noted . Moderate stool is present in the colon. No evidence of significant lymphadenopathy. No suspicious bony findings. IMPRESSION: Hepatomegaly with liver cirrhosis, splenomegaly and portal hypertension. Moderate stool is retained in the colon.
--- NOTE | 2018-03-12 18:43 | EDPHYS ---
Physician Documentation [facility] Name: Jeannette Ashby Age: 57 yrs Sex: Female : 1960 Arrival Date: 03/12/2018 Time: 13:51 Bed 28 Private MD: ED Physician Eddy Singh HPI: 03/12 15:45 This 57 yrs old Female presents to ER via Ambulatory with complaints of High cp Blood Pressure, Abdominal Pain, Back Pain. 15:45 The patient has elevated blood pressure and discovered this at home, with a home cp device. Onset: The symptoms/episode began/occurred today. Associated signs and symptoms: Pertinent positives: abdominal pain times 1 week, elevated blood glucose. Associated signs and symptoms: Pertinent negatives: chest pain, headache, lightheadedness, vomiting, weakness. Severity of symptoms: in the emergency department the blood pressure is unchanged, despite home interventions. Historical: - Allergies: 14:31 Darvocet-N 100; ss 14:31 Erythromycin; ss 14:31 tramadol; ss 14:31 Zithromax; ss 17:17 Toradol; rv - PMHx: 14:31 Anxiety; Cancer, Breast; Chronic pain; Colitis; COPD; MUSCLE WEAKNESS; Diabetes - IDDM; ss Depression; - PSHx: 14:31 Appendectomy; Hysterectomy; Cholecystectomy; ; bilateral mastectomy; breast ss reconstructive surgery; Liver Ablation; - Immunization history:: Adult Immunizations up to date. - Social history:: Smoking status: Patient uses tobacco products, smokes one-half pack cigarettes per day. - Ebola Screening: : Patient denies exposure to infectious person Patient denies travel to an Ebola-affected area in the 21 days before illness onset. ROS: 16:00 Constitutional: Negative for body aches, chills, fever, poor PO intake. cp 16:00 Eyes: Negative for injury, pain, redness, and discharge. cp 16:00 ENT: Negative for drainage from ear(s), ear pain, sore throat, difficulty swallowing, difficulty handling secretions. 16:00 Cardiovascular: Negative for chest pain, edema, palpitations. 16:00 Respiratory: Negative for cough, shortness of breath, wheezing. 16:00 Abdomen/GI: Positive for abdominal pain, of the right upper quadrant and left upper quadrant, Negative for nausea, vomiting, and diarrhea, constipation, black/tarry stool, rectal bleeding. 16:00 Back: Negative for pain at rest, pain with movement, radiated pain. 16:00 : Negative for urinary symptoms. 16:00 Skin: Negative for cellulitis, rash. 16:00 Neuro: Negative for altered mental status, dizziness, headache, syncope, near syncope, weakness. 16:00 All other systems are negative. Exam: 16:00 ECG was reviewed by the Attending Physician. cp 16:05 Constitutional: The patient appears in no acute distress, alert, awake, non-toxic, well cp developed, well nourished. 16:05 Head/Face: Normocephalic, atraumatic. cp 16:05 Eyes: Periorbital structures: appear normal, Conjunctiva: normal, no exudate, no injection, Sclera: no appreciated abnormality, Lids and lashes: appear normal, bilaterally. 16:05 ENT: External ear(s): are unremarkable, Nose: is normal, Mouth: Lips: moist, Oral mucosa: pink and intact, moist, Posterior pharynx: is normal, airway is patent, no erythema, no exudate. 16:05 Neck: ROM/movement: is normal, is supple, without pain, no range of motions limitations, no nuchal rigidity. 16:05 Chest/axilla: Inspection: normal, Palpation: is normal, no crepitus, no tenderness. 16:05 Cardiovascular: Rate: normal, Rhythm: regular, Edema: is not appreciated, JVD: is not appreciated. 16:05 Respiratory: the patient does not display signs of respiratory distress, Respirations: normal, no use of accessory muscles, no retractions, no splinting, no tachypnea, labored breathing, is not present, Breath sounds: are clear throughout, no decreased breath sounds, no stridor, no wheezing. 16:05 Abdomen/GI: Inspection: scar(s), Bowel sounds: active, all quadrants, Palpation: soft, in all quadrants, moderate abdominal tenderness, in the right upper quadrant, rebound tenderness, is not appreciated, voluntary guarding, is not appreciated, involuntary guarding, is not appreciated. 16:05 Back: pain, is absent, ROM is normal. 16:05 Musculoskeletal/extremity: Exam is negative for decreased range of motion, deformity, injury. 16:05 Skin: cellulitis, is not appreciated, no rash present. 16:05 Neuro: Orientation: to person, place \T\ time. Mentation: lucid, able to follow commands, Cerebellar function: is grossly normal, Motor: moves all fours, strength is normal, Sensation: no obvious gross deficits, Gait: is steady. Vital Signs: 14:29 BP 184 / 94; Pulse 89; Resp 16; Temp 98.0(TE); Pulse Ox 99% on R/A; Weight 64.86 kg; ss Height 5 ft. 4 in. (162.56 cm); Pain 8/10; 15:11 BP 180 / 88; Pulse 79; Pulse Ox 99% on R/A; rv 16:57 BP 179 / 94; Pulse 80; Pulse Ox 100% on R/A; rv 18:17 BP 176 / 93; Pulse 72; Pulse Ox 100% on R/A; rv 18:54 BP 174 / 89; Pulse 71; Pulse Ox 100% on R/A; rv 14:29 Body Mass Index 24.55 (64.86 kg, 162.56 cm) ss MDM: 15:17 Patient medically screened. cp 16:00 Differential diagnosis: hypertensive crisis, Malignant HTN, bowel obstruction, cp constipation, pancreatitis. 18:40 Data reviewed: vital signs, nurses notes, lab test result(s), EKG, radiologic studies, cp CT scan, plain films. 18:40 Test interpretation: by ED physician or midlevel provider: ECG, plain radiologic cp studies. Counseling: I had a detailed discussion with the patient and/or guardian regarding: the historical points, exam findings, and any diagnostic results supporting the discharge/admit diagnosis, lab results, radiology results, to return to the emergency department if symptoms worsen or persist or if there are any questions or concerns that arise at home. Response to treatment: the patient's symptoms have markedly improved after treatment, and as a result, I will discharge patient. Special discussion: Based on the patient's Hx, exam, and Dx evaluation, there is no indication for emergent surgery or inpatient Tx. It is understood by the patient/guardian that if the Sx's persist or worsen they need to return immediately for re-evaluation. 03/12 15:40 Order name: Amylase, Serum; Complete Time: 16:47 cp 03/12 15:40 Order name: Basic Metabolic Panel; Complete Time: 16:47 cp 03/12 16:47 Interpretation: Normal except: K 3.3; GLUC 293; GFR 51. cp 03/12 15:40 Order name: CBC with Diff; Complete Time: 17:29 cp 03/12 17:29 Interpretation: Normal except: WBC 4.0; HGB 11.3; HCT 34.6; MCV 79.1; MCH 25.9; PLT 58; cp RDW 17.3; NATALIE% 73.8. 03/12 15:40 Order name: Creatinine for Radiology; Complete Time: 16:47 cp 03/12 16:48 Interpretation: Normal except: GFR 51. cp 03/12 15:40 Order name: Hepatic Function; Complete Time: 16:47 cp 03/12 16:47 Interpretation: Normal except: AST 49; ALK 179; ALB 2.9; GLOB 4.3; A/G 0.7. cp 03/12 15:40 Order name: Lipase; Complete Time: 16:47 cp 03/12 16:47 Interpretation: Within normal limits: LIP 342. cp 03/12 15:40 Order name: Urine Microscopic Only; Complete Time: 17:08 cp 03/12 15:40 Order name: Magnesium; Complete Time: 16:47 cp 03/12 15:40 Order name: AMMONIA; Complete Time: 16:47 cp 03/12 15:40 Order name: PT-INR; Complete Time: 17:29 cp 03/12 15:40 Order name: Ptt, Activated; Complete Time: 17:29 cp 03/12 15:40 Order name: Ketone, Serum; Complete Time: 16:47 cp 03/12 15:40 Order name: XRAY Chest (1 view); Complete Time: 16:47 cp 03/12 18:05 Order name: Glucose, Ancillary Testing; Complete Time: 18:24 EDMS 03/12 15:40 Order name: IV Saline Lock; Complete Time: 16:19 cp 03/12 15:40 Order name: Labs collected and sent; Complete Time: 15:56 cp 03/12 15:40 Order name: Urine Dipstick-Ancillary (obtain specimen); Complete Time: 15:41 cp 03/12 15:40 Order name: EKG; Complete Time: 15:40 cp 03/12 15:40 Order name: CT Abd/Pelvis - W/Contrast; Complete Time: 18:32 cp 03/12 18:36 Order name: PO challenge cp EC:00 Rate is 75 beats/min. Rhythm is regular. MI interval is normal. QRS interval is cp prolonged at 114 msec. QT interval is prolonged at 436 msec. Interpreted by me. Reviewed by me. Administered Medications: 16:18 Drug: NS 0.9% 1000 ml Route: IV; Rate: 1 bolus; Site: left forearm; rv 18:54 Follow up: Response: No adverse reaction; IV Status: Completed infusion rv 16:18 Drug: Bentyl 20 mg Route: PO; rv 18:54 Follow up: Response: No adverse reaction; Pain is unchanged, physician notified rv 16:19 Drug: Insulin Regular Human 5 units {Co-Signature: kr2 (Jessy Galeana RN).} Route: IVP; rv Site: left forearm; 18:54 Follow up: Response: No adverse reaction rv 17:17 Not Given (Patient Refused): TORadol 30 mg IVP once rv 18:27 CANCELLED (Physician Discretion): Insulin Regular Human 10 units IVP once cp 18:27 Not Given (Physician Discretion): NS 0.9% 1000 ml IV at 1 bolus Per protocol; 1000 mL cp bolus 18:49 Drug: Potassium Effervescent Tablet 25 mEq Route: PO; rv 18:49 Follow up: Response: Medication administered at discharge. rv Point of Care Testing: Blood Glucose: 15:11 Blood Glucose: 328 mg/dL; rv 16:57 Blood Glucose: 156 mg/dL; rv Ranges: Critical Glucose Levels:Adult <50 mg/dl or >400 mg/dl <40 mg/dl or >180 mg/dl Disposition: 18:58 Co-signature as Attending Physician, Eddy Singh MD. rn Disposition: 03/12/18 18:42 Discharged to Home. Impression: Unspecified abdominal pain, Elevated blood-pressure reading, without diagnosis of hypertension, Hyperglycemia, unspecified. - Condition is Stable. - Discharge Instructions: Abdominal Pain, Adult, Constipation, Adult. - Prescriptions for Bentyl 20 mg Oral Tablet - take 2 tablet by ORAL route every 6 hours As needed; 40 tablet. Zofran 4 mg Oral Tablet - take 1 tablet by ORAL route every 12 hours As needed; 20 tablet. Miralax 17 gram/dose Oral - take 1 packet by ORAL route once daily dilute powder in 8 ounces of water or juice; 15 packet. - Medication Reconciliation Form, Thank You Letter, Antibiotic Education, Prescription Opioid Use form. - Follow up: Private Physician; When: 1 - 2 days; Reason: Recheck today's complaints. - Problem is new. - Symptoms have improved. Signatures: Dispatcher [employer] EDMS Eddy Singh MD MD rn Smirch, Shelby, RN RN ss Page, Corey, PA PA cp Sebas Dos Santos RN RN rv Jessy Galeana RN kr2 Corrections: (The following items were deleted from the chart) 18:27 18:25 Insulin Regular Human 10 units IVP once ordered. cp cp 18:51 18:42 03/12/2018 18:42 Discharged to Home. Impression: Unspecified abdominal pain. rv Condition is Stable. Forms are Medication Reconciliation Form, Thank You Letter, Antibiotic Education, Prescription Opioid Use. Follow up: Private Physician; When: 1 - 2 days; Reason: Recheck today's complaints. Problem is new. Symptoms have improved. cp 18:53 18:51 03/12/2018 18:42 Discharged to Home. Impression: Unspecified abdominal pain. cp Condition is Stable. Discharge Instructions: Abdominal Pain, Adult, Constipation, Adult. Prescriptions for Bentyl 20 mg Oral Tablet - take 2 tablet by ORAL route every 6 hours As needed; 40 tablet, Zofran 4 mg Oral Tablet - take 1 tablet by ORAL route every 12 hours As needed; 20 tablet, Miralax 17 gram/dose Oral - take 1 packet by ORAL route once daily dilute powder in 8 ounces of water or juice; 15 packet. and Forms are Medication Reconciliation Form, Thank You Letter, Antibiotic Education, Prescription Opioid Use. Follow up: Private Physician; When: 1 - 2 days; Reason: Recheck today's complaints. Problem is new. Symptoms have improved. rv 18:55 18:53 03/12/2018 18:42 Discharged to Home. Impression: Unspecified abdominal pain; rv Elevated blood-pressure reading, without diagnosis of hypertension; Hyperglycemia, unspecified. Condition is Stable. Discharge Instructions: Abdominal Pain, Adult, Constipation, Adult. Prescriptions for Bentyl 20 mg Oral Tablet - take 2 tablet by ORAL route every 6 hours As needed; 40 tablet, Zofran 4 mg Oral Tablet - take 1 tablet by ORAL route every 12 hours As needed; 20 tablet, Miralax 17 gram/dose Oral - take 1 packet by ORAL route once daily dilute powder in 8 ounces of water or juice; 15 packet. and Forms are Medication Reconciliation Form, Thank You Letter, Antibiotic Education, Prescription Opioid Use. Follow up: Private Physician; When: 1 - 2 days; Reason: Recheck today's complaints. Problem is new. Symptoms have improved. cp
--- NOTE | 2018-03-12 18:43 | ER ---
Nurse's Notes [facility] Name: Jeannette Ashby Age: 57 yrs Sex: Female : 1960 Arrival Date: 03/12/2018 Time: 13:51 Bed 28 Private MD: Diagnosis: Unspecified abdominal pain;Elevated blood-pressure reading, without diagnosis of hypertension;Hyperglycemia, unspecified Presentation: 03/12 14:29 Presenting complaint: Patient states: high blood pressure, high blood sugar, and ss increased abd pain that began 1 week ago, but is worse today. Transition of care: patient was not received from another setting of care. Onset of symptoms was March 04, 2018. Risk Assessment: Do you want to hurt yourself or someone else? Patient reports no desire to harm self or others. Initial Sepsis Screen: Does the patient meet any 2 criteria? No. Patient's initial sepsis screen is negative. Does the patient have a suspected source of infection? No. Patient's initial sepsis screen is negative. Note Patient reports a history of Liver CA and usually has this abd pain, but is worse the past few days. Care prior to arrival: None. 14:29 Method Of Arrival: Ambulatory ss 14:29 Acuity: VERONICA 3 ss Historical: - Allergies: 14:31 Darvocet-N 100; ss 14:31 Erythromycin; ss 14:31 tramadol; ss 14:31 Zithromax; ss 17:17 Toradol; rv - PMHx: 14:31 Anxiety; Cancer, Breast; Chronic pain; Colitis; COPD; MUSCLE WEAKNESS; Diabetes - IDDM; ss Depression; - PSHx: 14:31 Appendectomy; Hysterectomy; Cholecystectomy; ; bilateral mastectomy; breast ss reconstructive surgery; Liver Ablation; - Immunization history:: Adult Immunizations up to date. - Social history:: Smoking status: Patient uses tobacco products, smokes one-half pack cigarettes per day. - Ebola Screening: : Patient denies exposure to infectious person Patient denies travel to an Ebola-affected area in the 21 days before illness onset. Screenin:18 Abuse screen: Denies threats or abuse. Denies injuries from another. Nutritional rv screening: No deficits noted. Tuberculosis screening: No symptoms or risk factors identified. Fall Risk None identified. Assessment: 15:17 General: Appears in no apparent distress. comfortable, Behavior is calm, cooperative. rv Pain: Denies pain. Neuro: Level of Consciousness is awake, alert, obeys commands, Oriented to person, place, time, situation. Cardiovascular: Capillary refill < 3 seconds. Respiratory: Airway is patent. GI: Bowel sounds present X 4 quads. Abd is soft and non tender X 4 quads. : No signs and/or symptoms were reported regarding the genitourinary system. EENT: No signs and/or symptoms were reported regarding the EENT system. Derm: Skin is intact. Vital Signs: 14:29 BP 184 / 94; Pulse 89; Resp 16; Temp 98.0(TE); Pulse Ox 99% on R/A; Weight 64.86 kg; ss Height 5 ft. 4 in. (162.56 cm); Pain 8/10; 15:11 BP 180 / 88; Pulse 79; Pulse Ox 99% on R/A; rv 16:57 BP 179 / 94; Pulse 80; Pulse Ox 100% on R/A; rv 18:17 BP 176 / 93; Pulse 72; Pulse Ox 100% on R/A; rv 18:54 BP 174 / 89; Pulse 71; Pulse Ox 100% on R/A; rv 14:29 Body Mass Index 24.55 (64.86 kg, 162.56 cm) ss ED Course: 13:51 Patient arrived in ED. sb2 14:29 Arm band placed on right wrist. ss 14:30 Triage completed. ss 15:14 Reinier Singletary PA is PHCP. cp 15:14 Eddy Singh MD is Attending Physician. cp 15:19 Patient has correct armband on for positive identification. Placed in gown. Bed in low rv position. Call light in reach. Side rails up X 1. Pulse ox on. NIBP on. 15:45 Initial lab(s) drawn, by ED staff, sent to lab. Urine collected: clean catch specimen, jp3 clear, christine colored. 16:03 EKG done, by medical technologist chief. reviewed by Reinier JONSE. sm3 16:04 Warm blanket given. Pillow given. jp3 16:06 Ketone, Serum Sent. rv 16:06 Ptt, Activated Sent. rv 16:07 PT-INR Sent. rv 16:07 AMMONIA Sent. rv 16:07 Magnesium Sent. rv 16:07 Amylase, Serum Sent. rv 16:07 Basic Metabolic Panel Sent. rv 16:07 CBC with Diff Sent. rv 16:07 Creatinine for Radiology Sent. rv 16:07 Hepatic Function Sent. rv 16:07 Lipase Sent. rv 16:07 Urine Microscopic Only Sent. rv 16:18 Inserted saline lock: 22 gauge in left forearm, using aseptic technique. rv 16:21 X-ray completed. Portable x-ray completed in exam room. Patient tolerated procedure mh1 well. 16:23 XRAY Chest (1 view) In Process Unspecified. EDMS 16:50 Lab(s) recollected, by me, sent to lab. jp3 16:55 Ptt, Activated Sent. jp3 16:55 PT-INR Sent. jp3 16:55 CBC with Diff Sent. jp3 18:[address] nj 18:19 CT Abd/Pelvis - W/Contrast In Process Unspecified. EDMS 18:20 CT completed. Patient tolerated procedure well. Patient moved back from CT. nj 18:50 No provider procedures requiring assistance completed. IV discontinued, bleeding rv controlled, No redness/swelling at site. Pressure dressing applied. Administered Medications: 16:18 Drug: NS 0.9% 1000 ml Route: IV; Rate: 1 bolus; Site: left forearm; rv 18:54 Follow up: Response: No adverse reaction; IV Status: Completed infusion rv 16:18 Drug: Bentyl 20 mg Route: PO; rv 18:54 Follow up: Response: No adverse reaction; Pain is unchanged, physician notified rv 16:19 Drug: Insulin Regular Human 5 units {Co-Signature: kr2 (Jessy Galeana RN).} Route: IVP; rv Site: left forearm; 18:54 Follow up: Response: No adverse reaction rv 17:17 Not Given (Patient Refused): TORadol 30 mg IVP once rv 18:27 CANCELLED (Physician Discretion): Insulin Regular Human 10 units IVP once cp 18:27 Not Given (Physician Discretion): NS 0.9% 1000 ml IV at 1 bolus Per protocol; 1000 mL cp bolus 18:49 Drug: Potassium Effervescent Tablet 25 mEq Route: PO; rv 18:49 Follow up: Response: Medication administered at discharge. rv Point of Care Testing: Blood Glucose: 15:11 Blood Glucose: 328 mg/dL; rv 16:57 Blood Glucose: 156 mg/dL; rv Ranges: Outcome: 18:42 Discharge ordered by MD. cp 18:50 Discharged to home ambulatory. rv 18:50 Condition: good 18:50 Discharge instructions given to patient, Instructed on discharge instructions, follow up and referral plans. medication usage, Prescriptions given X 2. 18:51 Patient left the ED. rv 18:55 Patient left the ED. rv Signatures: Dispatcher [employer] EDMS Tracy Burrows 1 Madison Champion, RN RN ss Reinier Singletary PA PA cp Jordan, Nathan nj Billeau, Sheri sb2 Mandy Varghese 3 Sebas Dos Santos, RN RN rv Will Lockett 3 Jessy Galeana RN kr2
[2018-03-12] MEDS ORDERED: POTASSIUM 25 MEQ EFFERV TAB ONE (18:53)
== END 2018-03-12 18:55 | disposition home or self-care (01) ==
LOC: ER 13:50
DX: R03.0 Elevated blood-pressure reading, without diagnosis of hypertension (principal); E11.65 Type 2 diabetes mellitus with hyperglycemia; F17.210 Nicotine dependence, cigarettes, uncomplicated; Z85.3 Personal history of malignant neoplasm of breast; Z88.1 Allergy status to other antibiotic agents; Z88.3 Allergy status to other anti-infective agents; Z88.5 Allergy status to narcotic agent; Z90.13 Acquired absence of bilateral breasts and nipples
CPT/HCPCS: 36415; 71045; 74177; 80048; 80076; 81015; 82010; 82140; 82150; 82962; 83690; 83735; 85025; 85610; 85730; 93005; 96361; 96374; 99285; J7030; Q9967

== ENCOUNTER 2018-04-08 11:44 | Emergency (ER) | payer OTHER ==
[2018-04-08] MEDS ORDERED: MEPERIDINE HCL 50 MG/ML AMP ONE ×2 (12:08→13:32)
[2018-04-08] MEDS ORDERED: NA CHLORIDE 0.9% 500 ML ONE (12:08)
[2018-04-08 12:26] LABS: Absolute Lymphocytes (CBC) 1.8 K/uL (0.7-4.9); Absolute Monocytes 0.5 K/uL (0.1-1.3); Absolute Neutrophil 9.7 K/uL (1.8-8.0); Basophils % 0.2 % (0-1.3); Eosinophils % 0.1 % (0-4.4); Hematocrit 42.5 % (36.0-45.0); Lymphocytes % 14.7 % (15.3-44.8); MCH 26.9 pg (27.0-35.0); MCV 80.2 fL (80-100)
--- OUTSIDE RECORDS SUMMARY | 2018-04-08 12:29 | XMS REPORT | Clinical Summary ---
:1960 Author Organization [facility] Address [address] [place] [id number] Phone Care Team Providers Name Role Phone Unavailable Primary Care Provider Unavailable Allergies Not on File Current Medications Not on file Active Problems Not on file Social History Tobacco Use Types Packs/Day Years Used Date Never Assessed Sex Assigned at Date Recorded Not on file Last Filed Vital Signs Not on file Plan of Treatment Not on file Results Not on fileafter 04/07/2017
--- OUTSIDE RECORDS SUMMARY | 2018-04-08 12:29 | XMS REPORT ---
:1960 Author Organization [facility] Address [address] [address] Care Team Providers Name Role Phone ACACIA KUMAR Unavailable Unavailable JEF CAMPOS Unavailable Unavailable Problems This patient has no known problems. Allergies, Adverse Reactions, Alerts This patient has no known allergies or adverse reactions. Medications This patient has no known medications. Results Test Description Test Time Test Comments Text Results Atomic Results Result Comments Stress Test - [address] Treadmill ONLY [place], [place] [address] Patient Name : GERA PALUMBO MR #: [id number] : 1960 Age/Sex: 57/F Adm Physician : ACACIA KUMAR MD Admit Date : 10/30/17 Location : [facility] Room/Bed : [place] [address] REPORT: Cardiology Report DATE OF STUDY: October [...] ventricular function, calculated ejection fraction 54%. Job#: [id number] GH cc: ACACIA KUMAR MD Signature Date Dictated By: VANNESA ANTON MD Transcribed By: SMEDS on 10/31/17 <Electronically signed by VANNESA ANTON MD><<Signature on File>>11/02/17 1416 COPY TO: CT CHEST WO [place] [address] Patient Name: GERA PALUMBO MR #: [id number] : 1960 Age/Sex: 57/F Req #: [id number] Adm Physician: ACACIA KUMAR MD Ordered by: ACACIA KUMAR MD Report #: [id number] Location: [facility] Room/Bed: [place] [address] Procedure: [id number] CT/CT CHEST WO Exam Date: 10/30/17 Exam [...] COPY TO: ACACIA KUMAR MD ABDOMEN ACUTE [address] SERIES W/PA CXR [place] [address] Patient Name: GERA PALUMBO MR #: [id number] : 1960 Age/Sex: 56/F Req #: [id number] Adm Physician: Ordered by: JEF CAMPOS MD Report #: [id number] Location: ER Room/Bed: Procedure: [id number] DX/ABDOMEN ACUTE SERIES W/PA CXR Exam Date: [...]
[2018-04-08 12:50] LABS: BUN Blood Urea Nitrogen 13 mg/dL (7-18); Bicarbonate 20 mmol/L (21-32); Potassium 3.9 mmol/L (3.5-5.1); Sodium Level 134 mmol/L (136-145); Troponin (Emerg Dept Use Only) < 0.02 ng/mL (0.0-0.045)
[2018-04-08 12:51] LABS: Glucose Level 533 mg/dL (74-106)
[2018-04-08] MEDS ORDERED: INSULIN -REGULAR HUMAN 50 UNIT/0.5 ML ML ONE (13:16)
--- NOTE | 2018-04-08 13:30 | EKG ---
Test Date: 2018-04-08 Test Time: 12:29:33 Perioperative Educator: IZABELA MEASUREMENT RESULTS: Intervals: Rate: 111 DC: 142 QRSD: 70 QT: 376 QTc: 511 [place]: P: 76 DC: 142 QRS: 75 T: 65 INTERPRETIVE STATEMENTS: Sinus tachycardia Otherwise normal ECG Compared to ECG 03/12/2018 15:52:16 Sinus rhythm no longer present Left bundle-branch block no longer present Left ventricular hypertrophy no longer present Prolonged QT interval no longer present Electronically Signed On 04-08-18 13:29:07 CDT by Dewayne Hopper
--- NOTE | 2018-04-08 13:35 | RAD REPORT ---
EXAM DESCRIPTION: Kelli Single View04/08/2018 1:23 pm CLINICAL HISTORY: Chest pain COMPARISON: October 2017 FINDINGS: The lungs appear clear of acute infiltrate. The heart is normal size IMPRESSION: No acute abnormalities displayed
--- NOTE | 2018-04-08 14:19 | ER ---
Nurse's Notes [facility] Name: Jeannette Ashby Age: 57 yrs Sex: Female : 1960 Arrival Date: 04/08/2018 Time: 11:48 Bed 3 Private MD: Diagnosis: Presentation: 04/08 11:45 Presenting complaint: Patient states: chest pain, was reported by Rola LIRA, triage sv nurse, that pt signed in and was placed in a wheelchair and started "shaking." Pt was brought back to ER #3 in a wheelchair and was talking and shaking. Pt able to get herself up from the wheelchair and to the stretcher with 1 person assist. Transition of care: patient was not received from another setting of care. Onset of symptoms is unknown. Risk Assessment: Do you want to hurt yourself or someone else? Patient reports no desire to harm self or others. Initial Sepsis Screen: Does the patient meet any 2 criteria? No. Patient's initial sepsis screen is negative. Does the patient have a suspected source of infection? No. Patient's initial sepsis screen is negative. Care prior to arrival: None. 11:45 Method Of Arrival: Wheelchair sv 11:45 Acuity: VERONICA 2 sv Triage Assessment: 11:45 General: Appears distressed, Behavior is cooperative, shaking. Pain: Complains of pain sv in chest Quality of pain is described as unable to assess Pain began unknown Noted to be restless, shaking. EENT: No signs and/or symptoms were reported regarding the EENT system. Neuro: Level of Consciousness is awake, alert, obeys commands, Oriented to person, Speech Pt able to answer questions. Cardiovascular: Patient's skin is warm and dry. Rhythm is sinus tachycardia. Respiratory: Respiratory effort is even, labored, Respiratory pattern is tachypnea. Derm: Skin is normal. Historical: - Allergies: 14:02 Darvocet-N 100; sv 14:02 Erythromycin; sv 14:02 Toradol; sv 14:02 tramadol; sv 14:02 Zithromax; sv 14:02 Demerol; sv - PMHx: 14:02 Anxiety; Cancer, Breast; Chronic pain; Colitis; COPD; Depression; Diabetes - IDDM; sv MUSCLE WEAKNESS; - PSHx: 14:02 Appendectomy; Hysterectomy; Cholecystectomy; ; bilateral mastectomy; breast sv reconstructive surgery; Liver Ablation; - Immunization history:: Adult Immunizations unknown. - Family history:: not pertinent. - Ebola Screening: : No symptoms or risks identified at this time. - Social history:: Smoking status: unknown. - Hospitalizations: : No recent hospitalization is reported. Screenin:20 Abuse screen: Denies threats or abuse. Denies injuries from another. Nutritional sv screening: No deficits noted. Tuberculosis screening: No symptoms or risk factors identified. Fall Risk No fall in past 12 months (0 pts). No secondary diagnosis (0 pts). IV access (20 points). Ambulatory Aid- None/Bed Rest/Nurse Assist (0 pts). Gait- Impaired (20 pts.). Mental Status- Overestimates/Forgets Limitations (15 pts.). Total Teixeira Fall Scale indicates High Risk Score (45 or more points). Fall prevention measures have been instituted. Side Rails Up X 2 Placed Close to Nursing Station Frequent Obs/Assessments Occuring As available patient and family educated on Fall Prevention Program and Strategies. Assessment: 12:20 Reassessment: Patient appears in no apparent distress at this time. Patient and/or sv family updated on plan of care and expected duration. Pain level reassessed. Patient is alert, oriented x 3, equal unlabored respirations, skin warm/dry/pink. 13:13 Reassessment: Patient appears in no apparent distress at this time. Patient and/or sv family updated on plan of care and expected duration. Pain level reassessed. Patient is alert, oriented x 3, equal unlabored respirations, skin warm/dry/pink. Patient states feeling better. Patient states symptoms have improved. 14:20 Reassessment: Pt stated that she did not want to stay and be admitted, she said that sv she has an appt at [facility] for treatment that she cannot miss. Informed pt the importance of staying for further evaluation. Pt stated that she cannot change her appt. Informed Dr Singh. Pt to sign AMA form. Vital Signs: 12:13 BP 186 / 97; Pulse 116; Resp 24; Pulse Ox 99% on R/A; Pain 8/10; sv 13:00 BP 190 / 98; Pulse 98; Resp 16; Pulse Ox 96% on R/A; sv 14:00 BP 175 / 98; Pulse 96; Resp 20; Pulse Ox 96% on R/A; dh3 ED Course: 11:45 Missed attempt(s): 22 gauge in left upper arm. Bleeding controlled, band aid applied, sv catheter tip intact. 11:45 Patient has correct armband on for positive identification. Placed in gown. Bed in low sv position. Side rails up X2. Seizure precautions initiated. cardiac monitor on. Pulse ox on. NIBP on. Door closed. Warm blanket given. Head of bed elevated. 11:45 Arm band placed on right wrist. Patient placed in an exam room, on a stretcher, in view sv of staff members, on engine monitor, on pulse oximetry. 11:48 Patient arrived in ED. rn 11:48 Eddy Singh MD is Attending Physician. rn 11:50 Missed attempt(s): 20 gauge in right antecubital area. Bleeding controlled, band aid sv applied, catheter tip intact. 12:00 Initial lab(s) drawn, by me, sent to lab. Inserted saline lock: 20 gauge in right sv forearm, using aseptic technique. Blood collected. Flushed right forearm with 5 ml normal saline. 12:20 Gloria Renteria RN is Primary Nurse. sv 12:20 Gallagher cath inserted, using sterile technique, 16 Fr., by me, balloon inflated, to sv gravity drainage, returned clear yellow urine. Patient tolerated poorly. 12:25 Triage completed. sv 12:39 EKG done, by test cell technician. reviewed by Eddy Singh MD. at1 13:23 XRAY Chest (1 view) In Process Unspecified. EDMS 13:23 X-ray completed. Portable x-ray completed in exam room. Patient tolerated procedure sw well. 14:18 Ayaan Guzman MD is Hospitalizing Provider. rn 14:23 Urine collected: Gallagher catheter specimen, clear, Amount Returned: 200mL. 3 14:45 No provider procedures requiring assistance completed. IV discontinued, intact, sv bleeding controlled, No redness/swelling at site. Pressure dressing applied. 14:46 Gallagher cath removed intact, balloon deflated. sv Administered Medications: 12:20 Drug: NS 0.9% 500 ml Route: IV; Rate: bolus; Site: right forearm; sv 13:00 Follow up: Response: No adverse reaction; IV Status: Completed infusion; IV Intake: sv 500ml 13:00 Follow up: Response: No adverse reaction; IV Status: Completed infusion; IV Intake: sv 500ml 12:21 Drug: Demerol 25 mg Route: IVP; Site: right forearm; sv 12:30 Follow up: Response: No adverse reaction; No change in condition sv 13:13 Drug: Insulin Regular Human 10 units {Co-Signature: miesha (Gloria Renteria RN).} Route: hb Sub-Q; Site: right upper arm; 14:00 Follow up: Response: No adverse reaction; Blood sugar is lowered sv 13:14 Drug: Insulin Regular Human 5 units {Co-Signature: sv (Gloria Renteria RN).} Route: hb IVP; Site: right forearm; 14:00 Follow up: Response: No adverse reaction sv 13:30 Drug: Demerol 25 mg Route: IVP; Site: right forearm; sv 14:00 Follow up: Response: No adverse reaction sv Point of Care Testing: Blood Glucose: 14:01 Blood Glucose: 305 mg/dL; sv Ranges: Intake: 13:00 IV: 500ml; Total: 500ml. sv 13:00 IV: 500ml; Total: 1000ml. sv Outcome: 14:18 Decision to Hospitalize by Provider. rn 14:47 AMA AMA form signed sv 14:47 Condition: stable 14:48 Patient left the ED. sv Signatures: Dispatcher [employer] Gloria Wolff, RN PANKAJ sv Eddy Singh MD MD rn Gonzales, Amanda, steam setter EKG Tat1 Alison Newberry Heather, RN RN hb Herrera, Deanna 3 Gloria Renteria RN sv Corrections: (The following items were deleted from the chart) 15:29 14:00 Blood Glucose: Blood Glucose Yigeayj=530 mg/dL. sv sv
--- NOTE | 2018-04-08 14:19 | EDPHYS ---
Physician Documentation [facility] Name: Jeannette Ashby Age: 57 yrs Sex: Female : 1960 Arrival Date: 04/08/2018 Time: 11:48 Bed 3 Private MD: ED Physician Eddy Singh HPI: 04/08 11:50 This 57 yrs old Female presents to ER via Unassigned with complaints of chest rn pain, shaking. 11:50 The patient or guardian reports chest pain that is located primarily in the chest rn diffusely. Onset: 2 hour(s) ago. The pain does not radiate. Associated signs and symptoms: Pertinent positives: None. Pertinent negatives: abdominal pain, cough, diaphoresis, near syncope, palpitations, shortness of breath, syncope, vomiting. The chest pain is described as sharp. Duration: The patient or guardian reports a single episode, that is still ongoing. Severity of pain: At its worst the pain was moderate in the emergency department the pain is unchanged. It is unknown whether or not the patient has had similar symptoms in the past. Reports chest pain that began 2 hours ago, no recent procedures, no fever/cough/sob/abd pain, no vomiting/diarrhea. Reports known hx of liver problems/cancer, and has had hepatic encephalopathy in past. . Historical: - Allergies: 14:02 Darvocet-N 100; sv 14:02 Erythromycin; sv 14:02 Toradol; sv 14:02 tramadol; sv 14:02 Zithromax; sv 14:02 Demerol; sv - PMHx: 14:02 Anxiety; Cancer, Breast; Chronic pain; Colitis; COPD; Depression; Diabetes - IDDM; sv MUSCLE WEAKNESS; - PSHx: 14:02 Appendectomy; Hysterectomy; Cholecystectomy; ; bilateral mastectomy; breast sv reconstructive surgery; Liver Ablation; - Immunization history:: Adult Immunizations unknown. - Family history:: not pertinent. - Ebola Screening: : No symptoms or risks identified at this time. - Social history:: Smoking status: unknown. - Hospitalizations: : No recent hospitalization is reported. ROS: 11:50 Constitutional: Negative for fever, chills, and weight loss, Eyes: Negative for injury, rn pain, redness, and discharge, Neck: Negative for injury, pain, and swelling, Cardiovascular: Negative for edema Respiratory: Negative for shortness of breath, cough, wheezing, and pleuritic chest pain, Abdomen/GI: Negative for abdominal pain, nausea, vomiting, diarrhea, and constipation, Back: Negative for injury and pain, MS/Extremity: Negative for injury and deformity, Skin: Negative for injury, rash, and discoloration, Neuro: Negative for headache, numbness, tingling, and seizure. Exam: 11:50 Constitutional: This is a well developed, well nourished patient who is awake, alert, rn shaking all 4 extremities but wide awake, speaking, and seems able to control shaking at times. Head/Face: Normocephalic, atraumatic. Eyes: Pupils equal round and reactive to light, extra-ocular motions intact. Lids and lashes normal. Conjunctiva and sclera are non-icteric and not injected. Cornea within normal limits. Periorbital areas with no swelling, redness, or edema. ENT: MMM, no stridor Cardiovascular: Regular rate and rhythm with a normal S1 and S2. No gallops, murmurs, or rubs. Normal PMI, no JVD. No pulse deficits. Respiratory: Lungs have equal breath sounds bilaterally, clear to auscultation and percussion. No rales, rhonchi or wheezes noted. No increased work of breathing, no retractions or nasal flaring. Abdomen/GI: Soft, non-tender, with normal bowel sounds. No distension or tympany. No guarding or rebound. No evidence of tenderness throughout. Skin: Warm, dry, and no evidence of cellulitis. MS/ Extremity: Pulses equal, no cyanosis. Neurovascular intact. Full, normal range of motion. Equal circumference. Neuro: Awake and alert, GCS 15, oriented to person, place, time, and situation. Cranial nerves II-XII grossly intact. Motor strength 5/5 in all extremities. Sensory grossly intact. Vital Signs: 12:13 BP 186 / 97; Pulse 116; Resp 24; Pulse Ox 99% on R/A; Pain 8/10; sv 13:00 BP 190 / 98; Pulse 98; Resp 16; Pulse Ox 96% on R/A; sv 14:00 BP 175 / 98; Pulse 96; Resp 20; Pulse Ox 96% on R/A; dh3 MDM: 11:48 Patient medically screened. rn 14:16 Differential diagnosis: acute myocardial infarction, coronary artery disease rn costochondritis, pleurisy, pneumonia, pneumothorax, hyperglycemia, DKA. Data reviewed: vital signs, nurses notes, lab test result(s), radiologic studies, plain films, and as a result, I will admit patient. Counseling: I had a detailed discussion with the patient and/or guardian regarding: the historical points, exam findings, and any diagnostic results supporting the discharge/admit diagnosis, lab results, radiology results, the need for further work-up and treatment in the hospital. Response to treatment: the patient's symptoms have mildly improved after treatment, and as a result, I will admit patient. Admission orders: after a detailed discussion of the patient's condition and case, the admit orders are written by me. ED course: Pt admitted to [facility] for hyperglycemia, acidosis, and chest pain, improved glucose, ketones still pending. . 04/08 11:50 Order name: CBC with Diff; Complete Time: 12:40 04/08 11:50 Order name: Basic Metabolic Panel; Complete Time: 12:55 04/08 11:50 Order name: Troponin (emerg Dept Use Only); Complete Time: 12:55 04/08 13:01 Order name: Acetone, Serum bd 04/08 14:02 Order name: Glucose, Ancillary Testing; Complete Time: 14:16 EDUT 04/08 14:02 Order name: Glucose, Ancillary Testing; Complete Time: 14:16 [facility] 04/08 11:50 Order name: IV Start; Complete Time: 12:21 04/08 11:50 Order name: EKG; Complete Time: 11:50 04/08 11:50 Order name: XRAY Chest (1 view); Complete Time: 13:39 04/08 11:50 Order name: EKG - Nurse/Tech; Complete Time: 13:23 rn Administered Medications: 12:20 Drug: NS 0.9% 500 ml Route: IV; Rate: bolus; Site: right forearm; sv 13:00 Follow up: Response: No adverse reaction; IV Status: Completed infusion; IV Intake: sv 500ml 13:00 Follow up: Response: No adverse reaction; IV Status: Completed infusion; IV Intake: sv 500ml 12:21 Drug: Demerol 25 mg Route: IVP; Site: right forearm; sv 12:30 Follow up: Response: No adverse reaction; No change in condition sv 13:13 Drug: Insulin Regular Human 10 units {Co-Signature: miesha (Gloria Renteria RN).} Route: hb Sub-Q; Site: right upper arm; 14:00 Follow up: Response: No adverse reaction; Blood sugar is lowered sv 13:14 Drug: Insulin Regular Human 5 units {Co-Signature: miesha (Gloria Renteria RN).} Route: hb IVP; Site: right forearm; 14:00 Follow up: Response: No adverse reaction sv 13:30 Drug: Demerol 25 mg Route: IVP; Site: right forearm; sv 14:00 Follow up: Response: No adverse reaction sv Point of Care Testing: Blood Glucose: 14:01 Blood Glucose: 305 mg/dL; sv Ranges: Critical Glucose Levels:Adult <50 mg/dl or >400 mg/dl <40 mg/dl or >180 mg/dl Disposition: 04/08/18 14:48 Patient has left against medical advice. - Patients states they are going to Home. - Condition is Stable. Signatures: Dispatcher [employer] Gloria Wolff RN RN sv Eddy Singh MD MD rn Baxter, Heather, RN RN Gloria Renteria RN Corrections: (The following items were deleted from the chart) 14:48 14:18 Hospitalization Ordered by Ayaan Guzman MD for Observation. Preliminary diagnosis sv is Chest pain, unspecified; Hyperglycemia, unspecified; Dehydration. Bed requested for Telemetry/MedSurg (observation). Status is Observation. Condition is Stable. Problem is new. Symptoms have improved. UTI on Admission? No. rn
== END 2018-04-08 14:48 | disposition left against medical advice (07) ==
LOC: ER 11:44
DX: R07.9 Chest pain, unspecified (principal); Z85.3 Personal history of malignant neoplasm of breast; Z88.3 Allergy status to other anti-infective agents; Z88.5 Allergy status to narcotic agent; Z90.13 Acquired absence of bilateral breasts and nipples
CPT/HCPCS: 36415; 51702; 71045; 80048; 82010; 82962 ×2; 84484; 85025; 93005; 96361; 96372; 96374; 96375; 99285; J2175 ×2

== ENCOUNTER 2018-07-31 17:15 | Emergency (ER) | payer OTHER ==
--- OUTSIDE RECORDS SUMMARY | 2018-07-31 17:16 | XMS REPORT | Clinical Summary ---
:1960 Author Organization [facility] Address [address] [place] [id number] Care Team Providers Name Role Phone Unavailable Primary Care Provider Unavailable Allergies Not on File Medications Not on file Active Problems Not on file Social History Tobacco Use Types Packs/Day Years Used Date Never Assessed Sex Assigned at Date Recorded Not on file Job Start Date Occupation Industry Not on file Not on file Not on file Travel History Travel Start Travel End No recent travel history available. Last Filed Vital Signs Not on file Plan of Treatment Not on file Results Not on fileafter 07/30/2017 Insurance Payer Benefit Plan / Group Subscriber ID Type Phone Address MEDICAID [place]ICA[place] xxxxxxxxx Medicaid
--- OUTSIDE RECORDS SUMMARY | 2018-07-31 17:17 | XMS REPORT ---
:1960 [facility] Address [address] [address] Care Team Providers Name Role Phone ACACIA KUMAR Unavailable Unavailable JEF CAMPOS Unavailable Unavailable Problems This patient has no known problems. Allergies, Adverse Reactions, Alerts This patient has no known allergies or adverse reactions. Medications This patient has no known medications. Results Test Description Test Time Test Comments Text Results Atomic Results Result Comments Stress Test - [address] Treadmill ONLY [place] [address] Patient Name : GERA PALUMBO MR #: [id number] : 1960 Age/Sex: 57/F Adm Physician : ACACIA KUMAR MD Admit Date : 10/30/17 Location : [facility] Room/Bed : [place] [address] REPORT: Cardiology Report DATE OF STUDY: October [...] ventricular function, calculated ejection fraction 54%. Job#: [id number] GH cc: ACACIA KUMAR MD Signature Date Dictated By: VANNESA ANTON MD Transcribed By: SMEDS on 10/31/17 <Electronically signed by VANNESA ANTON MD><<Signature on File>>11/02/17 1416 COPY TO: CT CHEST WO [place] [address] Patient Name: GERA PALUMBO MR #: [id number] : 1960 Age/Sex: 57/F Req #: [id number] Adm Physician: ACACIA KUMAR MD Ordered by: ACACIA KUMAR MD Report #: [id number] Location: [facility] Room/Bed: [place] [address] Procedure: [id number] CT/CT CHEST WO Exam Date: 10/30/17 Exam [...] at 13:18 Dictated By: ACACIA BEAULIEU MD [id number] Transcribed By: MARLEE on 10/30/17 1318 COPY TO: ACACIA KUMAR MD ABDOMEN ACUTE [address] SERIES W/PA CXR [place] [address] Patient Name: GERA PALUMBO MR #: [id number] : 1960 Age/Sex: 56/F Req #: [id number] Adm Physician: Ordered by: JEF CAMPOS MD Report #: [id number] Location: ER Room/Bed: Procedure: [id number] DX/ABDOMEN ACUTE SERIES W/PA CXR Exam Date: [...]
[2018-07-31] MEDS ORDERED: ONDANSETRON 4 MG/2 ML VIAL ONE (18:24)
--- NOTE | 2018-07-31 18:26 | EDPHYS ---
Physician Documentation [facility] Name: Jeannette Ashby Age: 58 yrs Sex: Female : 1960 Arrival Date: 07/31/2018 Time: 17:18 Bed 25 Private MD: ED Physician Eddy Singh HPI: 07/31 18:08 This 58 yrs old Female presents to ER via Ambulatory with complaints of Lump jmm on abd. 18:08 The patient presents with abdominal pain in the lower abdomen. Onset: The jmm symptoms/episode began/occurred gradually, 4 day(s) ago. The symptoms do not radiate. Associated signs and symptoms: Pertinent positives: nausea, Pertinent negatives: fever. This is a 58 year old female with a history of colitis, breast cancer presents to the ED with complains of abdominal swelling, pain. Patient states her abdoment feel like it is torn inside. CT was performed today by Dr. Jefferson. Denies vomiting or diarrhea. Denies fever. Complains of nausea. . Historical: - Allergies: 17:23 Darvocet-N 100; sv 17:23 Demerol; sv 17:23 Erythromycin; sv 17:23 Toradol; sv 17:23 tramadol; sv 17:23 Zithromax; sv - PMHx: 17:23 Anxiety; Cancer, Breast; Chronic pain; Colitis; COPD; Depression; Diabetes - IDDM; sv MUSCLE WEAKNESS; Liver cell carcinoma; - PSHx: 17:23 Appendectomy; Hysterectomy; Cholecystectomy; ; bilateral mastectomy; breast sv reconstructive surgery; Liver Ablation; - Immunization history:: Flu vaccine is not up to date. - Social history:: Smoking status: . - Ebola Screening: : No symptoms or risks identified at this time. ROS: 18:08 Constitutional: Negative for fever, chills, and weight loss, Cardiovascular: Negative jmm for chest pain, palpitations, and edema, Respiratory: Negative for shortness of breath, cough, wheezing, and pleuritic chest pain. 18:08 Abdomen/GI: Positive for abdominal pain, nausea. 18:08 All other systems are negative. Exam: 18:08 Head/Face: atraumatic. Eyes: EOMI, no conjunctival erythema appreciated ENT: Moist jmm Mucus Membranes Neck: Trachea midline, Supple Chest/axilla: Normal chest wall appearance and motion. Cardiovascular: Regular rate and rhythm. No edema appreciated Respiratory: Normal respirations, no respiratory distress appreciated 18:08 Skin: General appearance color normal MS/ Extremity: Moves all extremities, no obvious deformities appreciated, no edema noted to the lower extremities Neuro: Awake and alert, normal gait Psych: Behavior is normal, Mood is normal, Patient is cooperative and pleasant 18:08 Constitutional: The patient appears in no acute distress, alert, awake. 18:08 Abdomen/GI: Inspection: distension, that is moderate, Bowel sounds: normal, Palpation: soft, in all quadrants, mild abdominal tenderness, in the left lower quadrant. Vital Signs: 17:22 BP 181 / 94; Pulse 103; Resp 18; Temp 98.6; Pulse Ox 97% ; Height 5 ft. 4 in. (162.56 sv cm); Pain 10/10; 18:29 BP 162 / 70; Pulse 90; Resp 18; Pulse Ox 100% on R/A; Pain 2/10; mg2 MDM: 18:08 Patient medically screened. [facility] 18:08 Data reviewed: vital signs, nurses notes, radiologic studies, CT scan. ED course: [facility] abdomen was reviewed. no acute process is found. patient's abdomen is soft. i do not suspect an acute process. patient is alert and non toxic in appearance. patient given strict return precautions. . Administered Medications: 18:19 Not Given (Patient Refused): Zofran 4 mg IVP once; over 2 minutes tl3 Disposition: 19:04 Co-signature as Attending Physician, Eddy Singh MD. rn Disposition: 07/31/18 18:25 Discharged to Home. Impression: Unspecified abdominal pain. - Condition is Stable. - Discharge Instructions: Abdominal Pain, Adult. - Medication Reconciliation Form, Thank You Letter, Antibiotic Education, Prescription Opioid Use form. - Follow up: Private Physician; When: 2 - 3 days; Reason: Recheck today's complaints, Continuance of care, Re-evaluation by your physician. Signatures: Gloria Renteria, PANKAJ RN Jorge Woodard PA PA jmm Nieto, Roman, MD MD rn Gardose, Michele, RN RN mg2 Lowrey, Tammy RN tl3 Corrections: (The following items were deleted from the chart) 18:19 18:09 Urine Dipstick-Ancillary ordered. [facility] tl3 18:36 18:25 07/31/2018 18:25 Discharged to Home. Impression: Unspecified abdominal pain. mg2 Condition is Stable. Forms are Medication Reconciliation Form, Thank You Letter, Antibiotic Education, Prescription Opioid Use. Follow up: Private Physician; When: 2 - 3 days; Reason: Recheck today's complaints, Continuance of care, Re-evaluation by your physician. kenny
--- NOTE | 2018-07-31 18:26 | ER ---
Nurse's Notes [facility] Name: Jeannette Ashby Age: 58 yrs Sex: Female : 1960 Arrival Date: 07/31/2018 Time: 17:18 Bed 25 Private MD: Diagnosis: Unspecified abdominal pain Presentation: 07/31 17:21 Presenting complaint: Patient states: left sided "lump" started 2 weeks ago and now has sv a "lump" on her right side, has seen Dr Jefferson and had a CT done today but states that the pain has gotten worse. c/o abd numbness x 3 days. Transition of care: patient was not received from another setting of care. Onset of symptoms was July 2018. Care prior to arrival: None. 17:21 Method Of Arrival: Ambulatory sv 17:21 Acuity: VERONICA 3 sv 18:31 Risk Assessment: Do you want to hurt yourself or someone else? Patient reports no mg2 desire to harm self or others. 18:35 Initial Sepsis Screen: Does the patient meet any 2 criteria? No. Patient's initial mg2 sepsis screen is negative. Does the patient have a suspected source of infection? No. Patient's initial sepsis screen is negative. Historical: - Allergies: 17:23 Darvocet-N 100; sv 17:23 Demerol; sv 17:23 Erythromycin; sv 17:23 Toradol; sv 17:23 tramadol; sv 17:23 Zithromax; sv - PMHx: 17:23 Anxiety; Cancer, Breast; Chronic pain; Colitis; COPD; Depression; Diabetes - IDDM; sv MUSCLE WEAKNESS; Liver cell carcinoma; - PSHx: 17:23 Appendectomy; Hysterectomy; Cholecystectomy; ; bilateral mastectomy; breast sv reconstructive surgery; Liver Ablation; - Immunization history:: Flu vaccine is not up to date. - Social history:: Smoking status: . - Ebola Screening: : No symptoms or risks identified at this time. Screenin:15 Fall Risk IV access (20 points). mg2 18:30 Abuse screen: Denies threats or abuse. Denies injuries from another. Nutritional mg2 screening: No deficits noted. Tuberculosis screening: No symptoms or risk factors identified. Assessment: 18:20 General: Appears comfortable, well groomed, well developed, well nourished, Behavior is tl3 calm, cooperative, appropriate for age. Pain: Complains of pain in abdomen. Neuro: Level of Consciousness is awake, alert, obeys commands, Oriented to person, place, time, situation, Appropriate for age. Cardiovascular: Patient's skin is warm and dry. Respiratory: Airway is patent Respiratory effort is even, unlabored, Respiratory pattern is regular, symmetrical. GI: Abdomen is round. : No signs and/or symptoms were reported regarding the genitourinary system. EENT: No signs and/or symptoms were reported regarding the EENT system. Derm: No signs and/or symptoms reported regarding the dermatologic system. 18:30 Reassessment: Patient appears in no apparent distress at this time. patient refused for mg2 the urine dip and medication, she prefers her own medication at home. discharged ambulatory. Vital Signs: 17:22 BP 181 / 94; Pulse 103; Resp 18; Temp 98.6; Pulse Ox 97% ; Height 5 ft. 4 in. (162.56 sv cm); Pain 10/10; 18:29 BP 162 / 70; Pulse 90; Resp 18; Pulse Ox 100% on R/A; Pain 2/10; mg2 ED Course: 17:18 Patient arrived in ED. mr 17:22 Triage completed. sv 17:23 Arm band placed on. 17:47 Jorge Gregg PA is [facility] 17:47 Eddy Singh MD is Attending Physician. [facility] 18:20 Felicity Pulido, PANKAJ is Primary Nurse. tl3 18:29 No provider procedures requiring assistance completed. IV discontinued, intact, mg2 bleeding controlled, No redness/swelling at site. Pressure dressing applied. 18:35 Patient has correct armband on for positive identification. Pulse ox on. NIBP on. mg2 Administered Medications: 18:19 Not Given (Patient Refused): Zofran 4 mg IVP once; over 2 minutes tl3 Outcome: 18:25 Discharge ordered by . [facility] 18:36 Discharged to home ambulatory. mg2 18:36 Condition: stable 18:36 Discharge instructions given to patient, Instructed on discharge instructions, follow up and referral plans. Demonstrated understanding of instructions, follow-up care. 18:36 Patient left the ED. mg2 Signatures: Gloria Renteria RN RN Jorge Gregg PA PA [facility] [place] mr Felicity Pulido, RN RN tl3 Obie Barrios, PANKAJ RN mg2 Corrections: (The following items were deleted from the chart) 17:25 17:21 Presenting complaint: Patient states: left sided "lump" started 2 weeks ago and sv now has a "lump" on her right side, has seen Dr Jefferson and had a CT done today but states that the pain has gotten worse. sv 17:26 17:22 Pulse 103bpm; Resp 18bpm; Pulse Ox 97%; Temp 98.6F; Height 5 ft. 4 in.; Pain sv 04/22; sv
== END 2018-07-31 18:36 | disposition home or self-care (01) ==
LOC: ER 17:15
DX: R10.30 Lower abdominal pain, unspecified (principal); Z85.3 Personal history of malignant neoplasm of breast; Z85.05 Personal history of malignant neoplasm of liver; Z88.3 Allergy status to other anti-infective agents; Z88.5 Allergy status to narcotic agent
CPT/HCPCS: J2405

== ENCOUNTER 2018-10-12 18:17 | Emergency (ER) | payer OTHER ==
--- OUTSIDE RECORDS SUMMARY | 2018-10-12 18:19 | XMS REPORT | Clinical Summary ---
:1960 Author Organization [facility] Address [address] [place] [address] Care Team Providers Name Role Phone Pcp, No Primary Care Provider Unavailable Allergies Active Allergy Reactions Severity Noted Date Comments Azithromycin Rash, Other (See Comments) Low 08/08/2015 Erythromycin 09/03/2018 Ketorolac 09/03/2018 Tramadol Other (See Comments) 08/08/2015 Other reaction(s): Insomnia for days Unable to sleep Medications Medication Sig Dispensed Refills Start Date End Date Status sertraline Take 100 mg by mouth 0 Active (ZOLOFT) 100 MG daily. tablet metFORMIN Take 500 mg by mouth 0 Active (GLUCOPHAGE) 500 2 (two) times daily MG tablet with breakfast and dinner. methadone HCl Take 100 mg by mouth 0 Active (METHADONE ORAL) daily. insulin lispro Inject 30 Units 0 Active (HUMALOG) 100 subcutaneously 3 unit/mL injection (three) times daily before meals. insulin NPH 100 Inject 35 Units 0 Active unit/mL (3 mL) subcutaneously 2 InPn (two) times daily before meals NOVOLIN . furosemide Take 1 tablet (20 mg 30 tablet 11 09/03/2018 09/03/2019 Active (LASIX) 20 MG total) by mouth tabletIndications daily. : Lower extremity edema Active Problems Problem Noted Date Cirrhosis 09/03/2018 Last Assessment & Plan: Diagnosis based on the laboratory parameters and imaging. 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 Her condition has decompensated with features of portal hypertension. Cirrhosis guidelines reviewed. Hepatocellular carcinoma 09/03/2018 Last Assessment & Plan: Diagnosis of HCC in December 2017 s/p radiofrequency ablation. She was referred for liver transplant evaluation at this time but expressed desire not to follow through.There is no evidence of residual tumor on recent imaging. Extensive discussion provided that liver transplant is the only definitive treatment for HCC and recurrence is likely. She understands and maintains her position. Immunity status testing 09/03/2018 Last Assessment & Plan: All patients with chronic liver disease should be immunized to prevent hepatitis A and hepatitis B. Previous serology indicates immunity to HAV. Recommend HBV booster which can be provided by primary care. Hepatitis C 09/03/2018 Last Assessment & Plan: HCV diagnosed in 1998 s/p partial treatment with Interferon / Ribavirin. HCV RNA December 2017 was undetectable. No further intervention necessary. Chronic viral hepatitis B without delta agent and without coma 09/03/2018 Last Assessment & Plan: She has evidence of past HBV infection without immunity. HBV DNA from November 2017 undetectable. She may benefit from vaccination which can be obtained by her primary care. Hernia of anterior abdominal wall 09/03/2018 Last Assessment & Plan: She has an umbilical hernia that is being evaluated for repair. She has a 34% one year mortality based on the [place] surgical risk score. In addition, she is Child -Chang Class A giving her a 10% abdominal surgery colton-operative mortality risk. Heart murmur 09/03/2018 Last Assessment & Plan: Physical examination revealed an audible fixed S2 split on cardiac examination which may be secondary to a bundle branch block. We recommend cardiology consultation prior to procedure. Lower extremity edema 09/03/2018 Last Assessment & Plan: Assymetrical lower extremity edema on physical examination. We ordered a venous doppler of the lower extremity to assess for venous thrombosis. Previously on Furosemide 20 mg daily. We write for a refill. Encounters Date Type Specialty Care Team Description 09/03/2018 Office Visit Hepatology Jone Lunsford Cirrhosis of liver without ascites, unspecified hepatic cirrhosis type (HCC); MD Any Hepatocellular carcinoma (HCC); Immunity status testing; Chronic hepatitis C without hepatic coma (HCC); Chronic viral hepatitis B without delta agent and without coma (HCC); Hernia of anterior abdominal wall; Heart murmur; Lower extremity edema 08/25/2018 Telephone Hepatology Britany Olmedo, Rec CD (1) MA after 10/11/2017 Social History Tobacco Use Types Packs/Day Years Used Date Current Every Day Smoker Cigarettes 0.25 40 Alcohol Use Drinks/Week oz/Week Comments No Alcohol Habits Answer Date Recorded How often do you have a drink containing alcohol? Never 09/03/2018 How many drinks containing alcohol do you have on a typical Not asked day when you are drinking? How often do you have six or more drinks on one occasion? Not asked Sex Assigned at Date Recorded Not on file Job Start Date Occupation Industry Not on file Not on file Not on file Travel History Travel Start Travel End No recent travel history available. Last Filed Vital Signs Vital Sign Reading Time Taken Blood Pressure 137/85 09/03/2018 1:12 PM [employer] Pulse 100 09/03/2018 1:12 PM [employer] Temperature 36.8 C (98.3 F) 09/03/2018 1:12 PM [employer] Respiratory Rate 16 09/03/2018 1:12 PM [employer] Oxygen Saturation 97% 09/03/2018 1:12 PM [employer] Inhaled Oxygen Concentration - - Weight 71.6 kg (157 lb 14.4 oz) 09/03/2018 1:12 PM [employer] Height 158.5 cm (5' 2.4") 09/03/2018 1:12 PM [employer] Body Mass Index 28.51 09/03/2018 1:12 PM [employer]NAGER [employer] Plan of Treatment Not on file Procedures Procedure Name Priority Date/Time Associated Diagnosis Comments CBC W/PLT COUNT & Routine 09/03/2018 2:47 Cirrhosis of liver Results for this AUTO DIFFERENTIAL PM [employer] without ascites, procedure are in unspecified hepatic the results cirrhosis type (HCC) section. ALPHA FETOPROTEIN Routine 09/03/2018 2:47 Cirrhosis of liver Results for this (AFP), TUMOR MARKER PM [employer] without ascites, procedure are in unspecified hepatic the results cirrhosis type (HCC) section. PROTHROMBIN TIME/INR Routine 09/03/2018 2:47 Cirrhosis of liver Results for this PM [employer] without ascites, procedure are in unspecified hepatic the results cirrhosis type (HCC) section. CBC W/PLT COUNT & Routine 09/03/2018 2:47 Cirrhosis of liver Results for this AUTO DIFFERENTIAL PM [employer] without ascites, procedure are in unspecified hepatic the results cirrhosis type (HCC) section. HEPATIC FUNCTION Routine 09/03/2018 2:46 Cirrhosis of liver Results for this PANEL PM [employer] without ascites, procedure are in unspecified hepatic the results cirrhosis type (HCC) section. BASIC METABOLIC PANEL Routine 09/03/2018 2:46 Cirrhosis of liver Results for this (7) PM [employer] without ascites, procedure are in unspecified hepatic the results cirrhosis type (HCC) section. after 10/11/2017 Results CBC with platelet count + automated diff (09/03/2018 2:47 PM MANAGER LOGISTIC) WBC 3.3 (L) 3.5 - 10.5 K/L [facility] RBC 3.88 (L) 3.93 - 5.22 M/L [facility] Hemoglobin 10.4 (L) 11.2 - 15.7 GM/DL [facility] Hematocrit 34.3 34.1 - 44.9 % [facility] MCV 88.4 79.4 - 94.8 fL [facility] MCH 26.8 25.6 - 32.2 pg [facility] MCHC 30.3 (L) 32.2 - 35.5 GM/DL [facility] RDW 17.0 (H) 11.7 - 14.4 % [facility] Platelets 42 (L) 150 - 450 K/CU MM [facility] MPV 10.6 9.4 - 12.3 fL [facility] nRBC 0 0 - 0 /100 WBC [facility] % Neutros 68 % [facility] % Lymphs 25 % [facility] % Monos 7 % [facility] % Eos 1 % [facility] [place] % Baso 0 % [facility] # Neutros 2.21 1.56 - 6.13 K/L [facility] # Lymphs 0.80 (L) 1.18 - 3.74 K/L [facility] # Monos 0.22 (L) 0.24 - 0.36 K/L [facility] # Eos 0.03 (L) 0.04 - 0.36 K/L [facility] # Baso 0.01 0.01 - 0.08 K/L [facility] Immature Granulocytes-Relative 0 0 - 1 % [facility] Specimen Blood Performing Organization Address City/[facility]/Zipcode Phone Number [facility] [address] [place] [address] [phone] [place] Alpha fetoprotein (AFP), tumor marker (09/03/2018 2:47 PM MANAGER LOGISTIC) Alpha-Fetoprotein 10.9 (H) <10.0 ng/mL [facility] Specimen Blood Performing Organization Address City/[facility] Phone Number [place] [phone] [place] [address] CENTER Pro-time/INR (09/03/2018 2:47 PM MANAGER LOGISTIC) Protime 14.9 (H) 11.7 - 14.7 seconds [facility] INR 1.2 <=5.9 [facility] Specimen Blood Narrative Performed At RECOMMENDED COUMADIN/WARFARIN INR THERAPY [facility] RANGES STANDARD DOSE: 2.0 - 3.0 Includes: PROPHYLAXIS for venous thrombosis, systemic embolization; TREATMENT for venous thrombosis and/or pulmonary embolus. HIGH RISK: Target INR is 2.5-3.5 for patients with mechanical heart valves. Performing Organization Address [facility] Phone Number [address] [address] [phone] [place] Hepatic function panel (09/03/2018 2:46 PM MANAGER LOGISTIC) Protein, Total 7.2 6.0 - 8.3 gm/dL [facility] Albumin 3.5 3.5 - 5.0 g/dL [facility] Total Bilirubin 0.8 0.2 - 1.2 mg/dL [facility] Bilirubin, Direct 0.4 0.1 - 0.5 mg/dL [facility] Alkaline Phosphatase 107 40 - 150 U/L [facility] AST 31 5 - 34 U/L [facility] ALT 15 6 - 55 U/L [facility] Specimen Blood Performing Organization Address City/State/Zipcode Phone Number [facility] [address] [place] [address] [phone] [place] Basic Metabolic Panel (09/03/2018 2:46 PM MANAGER LOGISTIC) Sodium 138 136 - 145 meq/L [facility] Potassium 3.8 3.5 - 5.1 meq/L [facility] Chloride 103 98 - 107 meq/L [facility] CO2 27 22 - 29 meq/L [facility] BUN 7 7 - 21 mg/dL [facility] Creatinine 0.78 0.57 - 1.25 mg/dL [facility] Glucose 226 (H) 70 - 105 mg/dL [facility] Calcium 9.2 8.4 - 10.2 mg/dL [facility] EGFR 76Comment: ESTIMATED GFR IS mL/min/1.73 sq m [facility] NOT ACCURATE [facility]ININE [facility] CLEARANCE IN PREDICTING GLOMERULAR FILTRATION RATE. ESTIMATED GFR IS NOT APPLICABLE FOR DIALYSIS PATIENTS. Specimen Blood Performing Organization Address City/State/Zipcode Phone Number [facility] [address] [place] [address] [phone] CENTER after 10/11/2017 Insurance Payer Benefit Plan / Subscriber ID Type Phone Address Group MEDICARE MEDICARE A B xxxxxxxxxxx Medicare MEDICAID - MEDICAID [facility] STAR xxxxxxxxx Medicaid Contracted MGD CARE PLAN
--- OUTSIDE RECORDS SUMMARY | 2018-10-12 18:20 | XMS REPORT ---
:1960 [facility] Address [address] [place] [address] Care Team Providers Name Role Phone TAB ROGELIO DE JESUS Unavailable Unavailable ACACIA KUMAR Unavailable Unavailable JEF CAMPOS Unavailable Unavailable Problems This patient has no known problems. Allergies, Adverse Reactions, Alerts This patient has no known allergies or adverse reactions. Medications This patient has no known medications. Results Test Description Test Time Test Comments Text Results Atomic Results Result Comments ALPHA FETOPROTEIN (AFP), TUMOR MARKER 2018-09-03 16:30:00 Test Item Value Reference Range Comments ALPHA-FETOPROTEIN (BEAKER) (test nwip=5070) 10.9 ng/mL <10.0 HEPATIC FUNCTION [id number] 16:13:00 Test Item Value Reference Range Comments TOTAL PROTEIN (BEAKER) (test qzgz=926) 7.2 gm/dL 6.0-8.3 ALBUMIN (BEAKER) (test acmh=6788) 3.5 g/dL 3.5-5.0 BILIRUBIN TOTAL (BEAKER) (test mwfc=209) 0.8 mg/dL 0.2-1.2 BILIRUBIN DIRECT (BEAKER) (test sxgb=421) 0.4 mg/dL 0.1-0.5 ALKALINE PHOSPHATASE (BEAKER) (test idqz=394) 107 U/L 40-150 AST (SGOT) (BEAKER) (test nyyi=836) 31 U/L 5-34 ALT (SGPT) (BEAKER) (test vbkc=145) 15 U/L 6-55 BASIC METABOLIC [id number] 16:13:00 Test Item Value Reference Range Comments SODIUM (BEAKER) (test 138 meq/L 136-145 kkhk=188) POTASSIUM (BEAKER) (test 3.8 meq/L 3.5-5.1 qfcr=241) CHLORIDE (BEAKER) (test 103 meq/L 98-107 rxdo=348) CO2 (BEAKER) (test 27 meq/L 22-29 uots=927) BLOOD UREA NITROGEN 7 mg/dL 7-21 (BEAKER) (test xcaz=277) CREATININE (BEAKER) (test 0.78 mg/dL 0.57-1.25 sndt=759) GLUCOSE RANDOM (BEAKER) 226 mg/dL 70-105 (test hdui=377) CALCIUM (BEAKER) (test 9.2 mg/dL 8.4-10.2 ramh=794) EGFR (BEAKER) (test 76 mL/min/1.73 sq m ESTIMATED GFR IS NOT vxkq=3868) ACCURATE CREATININE CLEARANCE IN PREDICTING GLOMERULAR FILTRATION RATE. ESTIMATED GFR IS NOT APPLICABLE FOR DIALYSIS PATIENTS. PROTHROMBIN TIME/[id number] 16:05:00 Test Item Value Reference Range Comments PROTIME (BEAKER) (test saki=451) 14.9 seconds 11.7-14.7 INR (BEAKER) (test agmd=273) 1.2 <=5.9 RECOMMENDED COUMADIN/WARFARIN INR THERAPY RANGESSTANDARD DOSE: 2.0 - 3.0 Includes: PROPHYLAXIS forvenous thrombosis, systemic embolization; TREATMENT for venous thrombosis and/or pulmonary embolus.HIGH RISK: Target INR is 2.5-3.5 for patients with mechanical heart valves.CBC W/PLT COUNT & AUTO [id number] 15:57:00 Test Item Value Reference Range Comments WHITE BLOOD CELL COUNT (BEAKER) (test jknb=563) 3.3 K/ L 3.5-10.5 RED BLOOD CELL COUNT (BEAKER) (test mjhv=765) 3.88 M/ L 3.93-5.22 HEMOGLOBIN (BEAKER) (test dcfx=603) 10.4 GM/DL 11.2-15.7 HEMATOCRIT (BEAKER) (test rota=777) 34.3 % 34.1-44.9 MEAN CORPUSCULAR VOLUME (BEAKER) (test qdjh=762) 88.4 fL 79.4-94.8 MEAN CORPUSCULAR HEMOGLOBIN (BEAKER) (test 26.8 pg 25.6-32.2 tmzv=218) MEAN CORPUSCULAR HEMOGLOBIN CONC (BEAKER) (test 30.3 GM/DL 32.2-35.5 ejen=916) RED CELL DISTRIBUTION WIDTH (BEAKER) (test 17.0 % 11.7-14.4 aykg=622) PLATELET COUNT (BEAKER) (test flxo=197) 42 K/CU MM 150-450 MEAN PLATELET VOLUME (BEAKER) (test gske=090) 10.6 fL 9.4-12.3 NUCLEATED RED BLOOD CELLS (BEAKER) (test 0 /100 WBC 0-0 ketd=709) NEUTROPHILS RELATIVE PERCENT (BEAKER) (test 68 % fksj=154) LYMPHOCYTES RELATIVE PERCENT (BEAKER) (test 25 % fmfq=069) MONOCYTES RELATIVE PERCENT (BEAKER) (test 7 % fhfz=637) EOSINOPHILS RELATIVE PERCENT (BEAKER) (test 1 % hrvh=469) BASOPHILS RELATIVE PERCENT (BEAKER) (test 0 % smuq=671) NEUTROPHILS ABSOLUTE COUNT (BEAKER) (test 2.21 K/ L 1.56-6.13 nope=483) LYMPHOCYTES ABSOLUTE COUNT (BEAKER) (test 0.80 K/ L 1.18-3.74 wioz=670) MONOCYTES ABSOLUTE COUNT (BEAKER) (test whzx=259) 0.22 K/ L 0.24-0.36 EOSINOPHILS ABSOLUTE COUNT (BEAKER) (test 0.03 K/ L 0.04-0.36 tyfr=374) BASOPHILS ABSOLUTE COUNT (BEAKER) (test fktn=305) 0.01 K/ L 0.01-0.08 IMMATURE GRANULOCYTES-RELATIVE PERCENT (BEAKER) 0 % 0-1 (test ykon=6549) Stress Test - Treadmill ONLY [place] [address] Patient Name : GERA PALUMBO MR #: [id number] : 1960 Age/Sex: 57/F Adm Physician : ACACIA KUMAR MD Admit Date : 10/30 Location : [facility] Room/Bed : [place] [address] REPORT: Cardiology Report DATE OF STUDY: October 31, 2017 LEXISCAN MYOVIEW The patient had resting perfusion images after an injection of11 millicuries of technetium-99m Myoview. Later, due to [...] ventricular function, calculated ejection fraction 54%. Job#: [id number] GH cc: ACACIA KUMAR MD Signature Date Dictated By: VANNESA ANTON MD Transcribed By: EDS on 10/31/17 & lt;Electronically signed by VANNESA ANTON MD><<Signature on File>& gt;11/02/17 1416 COPY TO:CT CHEST WO [place] [address] Patient Name: GERA PALUMBO MR #: [id number] : 1960 Age/Sex: 57/F Req #: [id number] [facility] Physician: ACACIA KUMAR MD Ordered by: ACACIA KUMAR MD Report #: [id number] Location: [facility] Room/Bed: [place] [address] Procedure: [id number] CT/CT CHEST WO Exam Date: 10/30/17 Exam [...] abnormality demonstrated. Right upper lobe scarring. Bibasilar dependentatelectasis. Pleura: The pleural spaces are clear. Heart [...] is present in the right upper quadrant. Theadrenal glands are normal. Bones: The visualized bony [...] on 10/30/17 1318 COPY TO: ACACIA KUMAR [facility] ACUTE SERIES W/PA CXR [place] [address] Patient Name: GERA PALUMBO MR # : [id number] : 1960 Age/Sex: 56/F Req #: [id number] Adm Physician: Ordered by: JEF CAMPOS MD Report #: [id number] Location: ER Room/Bed: Procedure: [id number] DX /ABDOMEN ACUTE SERIES W/PA CXR Exam Date: 04/18/17 Exam Time: 0210 REPORT STATUS: Signed EXAM: ABDOMEN ACUTE SERIES W/PA CXR, supine and erect views of the abdomen, AP view of the chest DATE: 2016 1:29 AM Time stamp on exam: 0155 hours INDICATION: Abdominal pain COMPARISON: CT of the abdomen and pelvis December 12, 2016 FINDINGS: LINES/ TUBES: None LUNGS: No consolidations or edema. PLEURA: No effusions or pneumothorax. HEART AND MEDIASTINUM: Normal size and contour. BOWEL PATTERN: Non-obstructed bowel gas pattern. BONES AND SOFT TISSUES: No acute bone findings. No abnormal calcifications. No mass effect. Bilateral chest surgical clips. Surgical clips right upperquadrant of the abdomen. IMPRESSION: No acute thoracic abnormality. No evidence for bowel obstruction. Signed by: Dr. Theo Blanton M.D. on 04/18/2017 2 :40 AM Dictated By: THEO BLANTON MD 9 Transcribed By: DONY on 04/18/17239 COPY TO: JEF CAMPOS MD
[2018-10-12 20:34] LABS: Absolute Lymphocytes (CBC) 1.1 K/uL (0.7-4.9); Absolute Monocytes 0.5 K/uL (0.1-1.3); Absolute Neutrophil 5.5 K/uL (1.8-8.0); Basophils % 0.4 % (0-1.3); Eosinophils % 0.3 % (0-4.4); Hematocrit 38.8 % (36.0-45.0); Lymphocytes % 15.4 % (15.3-44.8); MPV 7.4 fL (7.6-11.3); RBC Red Blood Cell Count 4.62 M/uL (3.86-4.86)
[2018-10-12] MEDS ORDERED: DICYCLOMINE HCL 20 MG/2 ML AMP IM ONE (20:40)
[2018-10-12 20:45] LABS: ALT/SGPT 51 U/L (12-78); AST/SGOT 55 U/L (15-37); Albumin 3.1 g/dL (3.4-5.0); Alkaline Phosphatase 172 U/L (45-117); BUN Blood Urea Nitrogen 15 mg/dL (7-18); Bicarbonate 24 mmol/L (21-32); Bilirubin Direct 0.5 mg/dL (0-0.2); Bilirubin Total 1.4 mg/dL (0.2-1.0); Glucose Level 207 mg/dL (74-106); Lipase 72 U/L (73-393); Potassium 3.5 mmol/L (3.5-5.1); Sodium Level 140 mmol/L (136-145)
[2018-10-12] MEDS ORDERED: MORPHINE 4 MG/ML SYR ONE (20:55)
[2018-10-12 21:11] LABS: Blood Morphology Comment NOT SEEN (NOT SEEN); Platelet Estimate DECR; Urine White Blood Cell Casts OK
--- NOTE | 2018-10-12 23:24 | EDPHYS ---
Physician Documentation [facility] Name: Jeannette Ashby Age: 58 yrs Sex: Female : 1960 Arrival Date: 10/12/2018 Time: 18:21 Bed 5 Private MD: ED Physician Martin Walters HPI: 10/12 22:59 This 58 yrs old Female presents to ER via Wheelchair with complaints of tw4 Abdominal Pain, Vomiting/Diarrhea. 23:20 The patient presents to the emergency department with nausea, that is moderate, tw4 vomiting. Onset: The symptoms/episode began/occurred today. Possible causes: unknown. The symptoms are aggravated by nothing. The symptoms are alleviated by nothing. Associated signs and symptoms: The patient has no apparent associated signs or symptoms. Severity of symptoms: At their worst the symptoms were moderate in the emergency department the symptoms. The patient has not experienced similar symptoms in the past. Historical: - Allergies: 18:29 Darvocet-N 100; sv 18:29 Demerol; sv 18:29 Erythromycin; sv 18:29 Toradol; sv 18:29 tramadol; sv 18:29 Zithromax; sv - PMHx: 18:29 Anxiety; Cancer, Breast; Chronic pain; Colitis; COPD; Depression; Diabetes - IDDM; sv Liver cell carcinoma; MUSCLE WEAKNESS; - PSHx: 18:29 Appendectomy; Hysterectomy; Cholecystectomy; ; bilateral mastectomy; breast sv reconstructive surgery; Liver Ablation; - Immunization history:: Adult Immunizations unknown. - Social history:: Smoking status: Patient/guardian denies using tobacco. - Ebola Screening: : Patient negative for fever greater than or equal to 101.5 degrees Fahrenheit, and additional compatible Ebola Virus Disease symptoms Patient denies exposure to infectious person Patient denies travel to an Ebola-affected area in the 21 days before illness onset. ROS: 23:20 Constitutional: Negative for fever, chills, and weight loss, Cardiovascular: Negative tw4 for chest pain, palpitations, and edema, Respiratory: Negative for shortness of breath, cough, wheezing, and pleuritic chest pain, MS/Extremity: Negative for injury and deformity, Skin: Negative for injury, rash, and discoloration, Neuro: Negative for headache, weakness, numbness, tingling, and seizure. 23:20 Abdomen/GI: Positive for abdominal pain, nausea and vomiting, nausea, vomiting, and diarrhea, nausea, vomiting, diarrhea, Negative for anorexia, dysphagia, hematemesis, black/tarry stool, rectal pain. Exam: 23:20 Constitutional: This is a well developed, well nourished patient who is awake, alert, tw4 and in no acute distress. Head/Face: Normocephalic, atraumatic. Eyes: Pupils equal round and reactive to light, extra-ocular motions intact. Lids and lashes normal. Conjunctiva and sclera are non-icteric and not injected. Cornea within normal limits. Periorbital areas with no swelling, redness, or edema. Chest/axilla: Normal chest wall appearance and motion. Nontender with no deformity. No lesions are appreciated. Cardiovascular: Regular rate and rhythm with a normal S1 and S2. No gallops, murmurs, or rubs. Normal PMI, no JVD. No pulse deficits. Respiratory: Lungs have equal breath sounds bilaterally, clear to auscultation and percussion. No rales, rhonchi or wheezes noted. No increased work of breathing, no retractions or nasal flaring. Back: No spinal tenderness. No costovertebral tenderness. Full range of motion. MS/ Extremity: Pulses equal, no cyanosis. Neurovascular intact. Full, normal range of motion. Neuro: Awake and alert, GCS 15, oriented to person, place, time, and situation. Cranial nerves II-XII grossly intact. Motor strength 5/5 in all extremities. Sensory grossly intact. Cerebellar exam normal. Normal gait. 23:20 Abdomen/GI: Inspection: abdomen appears normal, Bowel sounds: normal, Palpation: moderate abdominal tenderness, in the right upper quadrant and right lower quadrant. Vital Signs: 18:29 BP 165 / 95; Pulse 96; Resp 20; Temp 98; Pulse Ox 99% ; Weight 63.05 kg; Height 5 ft. 4 sv in. (162.56 cm); 21:55 BP 170 / 92; Pulse 78; Resp 18; Pulse Ox 100% on R/A; Pain 7/10; ao 22:50 BP 153 / 83; Pulse 87; Resp 20; Pulse Ox 99% on R/A; ao 23:57 BP 154 / 84; Pulse 82; Resp 16; Pulse Ox 100% on R/A; Pain 0/10; ao 18:29 Body Mass Index 23.86 (63.05 kg, 162.56 cm) sv MDM: 19:21 Patient medically screened. tw4 23:25 Differential diagnosis: Nonspecific abd pain, cholecystitis, pancreatitis. Data tw4 reviewed: vital signs, nurses notes. Data interpreted: Pulse oximetry: Interpretation: normal. Test interpretation: by ED physician or midlevel provider: ECG. Counseling: I had a detailed discussion with the patient and/or guardian regarding: the historical points, exam findings, and any diagnostic results supporting the discharge/admit diagnosis. Special discussion: I discussed with the patient/guardian in detail that at this point there is no indication for admission to the hospital. It is understood, however, that if the symptoms persist or worsen the patient needs to return immediately for re-evaluation. 10/12 19:11 Order name: Glucose, Ancillary Testing [facility] 10/12 19:21 Order name: Basic Metabolic Panel; Complete Time: 22:58 [facility] 10/12 22:58 Interpretation: Normal except: GLUC 207. tw 10/12 19:21 Order name: CBC with Diff; Complete Time: 22:58 tw 10/12 22:58 Interpretation: Normal except: MCV 84.0; NATALIE% 76.9; MPV 7.4; RDW 16.8. tw 10/12 19:21 Order name: Creatinine for Radiology; Complete Time: 22:59 tw 10/12 19:21 Order name: Hepatic Function; Complete Time: 22:58 [facility] 10/12 22:58 Interpretation: Normal except: AST 55; ALK 172; BILIT 1.4; BILID 0.5; ALB 3.1; GLOB tw4 4.9; A/G 0.6. 10/12 19:21 Order name: Lipase; Complete Time: 22:58 tw 10/12 22:59 Interpretation: Within normal limits: LIP 72. tw 10/12 21:11 Order name: CBC Smear Scan [facility] 10/12 21:50 Order name: Abdomen [facility] 10/12 19:21 Order name: IV Saline Lock; Complete Time: 20:20 tw4 10/12 19:21 Order name: Labs collected and sent; Complete Time: 20:20 tw4 Administered Medications: 20:44 Drug: Zofran 4 mg Route: IVP; Site: left hand; ao 23:37 Follow up: Response: No adverse reaction ao 21:03 Drug: morphine 4 mg Route: IVP; Site: left hand; ao 23:37 Follow up: Response: No adverse reaction ao 21:04 Not Given (Patient Refused): Bentyl 20 mg IM once ao Point of Care Testing: Blood Glucose: 18:29 Blood Glucose: 228 mg/dL; sv Ranges: Critical Glucose Levels:Adult <50 mg/dl or >400 mg/dl <40 mg/dl or >180 mg/dl Disposition: 10/12/18 23:23 Discharged to Home. Impression: Vomiting, unspecified, Diarrhea, unspecified. - Condition is Stable. - Discharge Instructions: Diarrhea, Adult, Nausea and Vomiting, Adult. - Prescriptions for Zofran 4 mg Oral Tablet - take 1 tablet by ORAL route every 12 hours As needed; 6 tablet. Lomotil 2.5- 0.025 mg Oral Tablet - take 2 tablet by ORAL route once daily As needed; 20 tablet. - Medication Reconciliation Form, Thank You Letter, Antibiotic Education, Prescription Opioid Use form. - Follow up: Private Physician; When: Upon discharge from the Emergency Department; Reason: If symptoms return, Recheck today's complaints, Continuance of care. - Problem is new. - Symptoms have improved. Signatures: Dispatcher [employer] Gloria Wolff RN RN William Maria RN RN Martin Fields MD MD tw4 Corrections: (The following items were deleted from the chart) 21:50 19:45 Abdomen Pelvis W Con+CT.RAD.BRZ ordered. EDMO EDMS 22:57 22:52 Abdomen Pelvis Wo Con+CT.RAD.BRZ ordered. [facility] EDMS 23:54 19:21 Urine Dipstick-Ancillary ordered. tw4 ao 23:58 23:23 10/12/2018 23:23 Discharged to Home. Impression: Vomiting, unspecified; Diarrhea, ao unspecified. Condition is Stable. Forms are Medication Reconciliation Form, Thank You Letter, Antibiotic Education, Prescription Opioid Use. Follow up: Private Physician; When: Upon discharge from the Emergency Department; Reason: If symptoms return, Recheck today's complaints, Continuance of care. Problem is new. Symptoms have improved. tw4
--- NOTE | 2018-10-12 23:24 | ER ---
Nurse's Notes [facility] Name: Jeannette Ashby Age: 58 yrs Sex: Female : 1960 Arrival Date: 10/12/2018 Time: 18:21 Bed 5 Private MD: Diagnosis: Vomiting, unspecified;Diarrhea, unspecified Presentation: 10/12 18:28 Presenting complaint: Patient states: RLQ, groin, suprapubic pain, diarrhea, n/v x 1 sv day. Transition of care: patient was not received from another setting of care. Onset of symptoms was October 11, 2018. Care prior to arrival: None. 18:28 Method Of Arrival: Wheelchair sv 18:28 Acuity: VERONICA 3 sv 22:01 Risk Assessment: Do you want to hurt yourself or someone else? Patient reports no ao desire to harm self or others. Initial Sepsis Screen: Does the patient meet any 2 criteria? No. Patient's initial sepsis screen is negative. Does the patient have a suspected source of infection? No. Patient's initial sepsis screen is negative. Historical: - Allergies: 18:29 Darvocet-N 100; sv 18:29 Demerol; sv 18:29 Erythromycin; sv 18:29 Toradol; sv 18:29 tramadol; sv 18:29 Zithromax; sv - PMHx: 18:29 Anxiety; Cancer, Breast; Chronic pain; Colitis; COPD; Depression; Diabetes - IDDM; sv Liver cell carcinoma; MUSCLE WEAKNESS; - PSHx: 18:29 Appendectomy; Hysterectomy; Cholecystectomy; ; bilateral mastectomy; breast sv reconstructive surgery; Liver Ablation; - Immunization history:: Adult Immunizations unknown. - Social history:: Smoking status: Patient/guardian denies using tobacco. - Ebola Screening: : Patient negative for fever greater than or equal to 101.5 degrees Fahrenheit, and additional compatible Ebola Virus Disease symptoms Patient denies exposure to infectious person Patient denies travel to an Ebola-affected area in the 21 days before illness onset. Screenin:59 Abuse screen: Denies threats or abuse. Denies injuries from another. Nutritional ao screening: No deficits noted. Tuberculosis screening: No symptoms or risk factors identified. Fall Risk None identified. Assessment: 10:20 Pain: Complains of pain in abdomen Pain currently is 8 out of 10 on a pain scale. ao Neuro: Level of Consciousness is awake, alert, obeys commands, Oriented to person, place, time, situation, Appropriate for age Moves all extremities. Full function Speech is normal, Facial symmetry appears normal. Cardiovascular: Capillary refill < 3 seconds Patient's skin is warm and dry. Respiratory: Airway is patent Respiratory effort is even, unlabored, Respiratory pattern is regular, symmetrical. GI: Abdomen is non-distended, Bowel sounds present X 4 quads. Abd is soft and non tender Abd is soft. GI: Reports lower abdominal pain, upper abdominal pain, bloating, diarrhea, nausea. : No signs and/or symptoms were reported regarding the genitourinary system. EENT: No signs and/or symptoms were reported regarding the EENT system. Derm: No signs and/or symptoms reported regarding the dermatologic system. Musculoskeletal: No signs and/or symptoms reported regarding the musculoskeletal system. 19:20 General: Appears in no apparent distress. uncomfortable, Behavior is calm, cooperative, ao anxious. 20:20 Reassessment: Patient appears in no apparent distress at this time. Patient and/or ao family updated on plan of care and expected duration. Pain level reassessed. Patient is alert, oriented x 3, equal unlabored respirations, skin warm/dry/pink. 21:40 Reassessment: Patient appears in no apparent distress at this time. Patient and/or ao family updated on plan of care and expected duration. Pain level reassessed. Patient is alert, oriented x 3, equal unlabored respirations, skin warm/dry/pink. 21:55 Reassessment: Patient's IV blow and patient refused get a new IV. Dr Walters was ao notified and ordered CT without contrast. 22:40 Reassessment: Patient appears in no apparent distress at this time. Patient and/or ao family updated on plan of care and expected duration. Pain level reassessed. 23:54 Reassessment: DC instructions given to patient. Patient expressed she is unhappy with ao the care given. Dr Walters was notified and Charge nurse PANKAJ Mercer. Both Dr Walters and Charge nurse spoke to patient. Vital Signs: 18:29 BP 165 / 95; Pulse 96; Resp 20; Temp 98; Pulse Ox 99% ; Weight 63.05 kg; Height 5 ft. 4 sv in. (162.56 cm); 21:55 BP 170 / 92; Pulse 78; Resp 18; Pulse Ox 100% on R/A; Pain 7/10; ao 22:50 BP 153 / 83; Pulse 87; Resp 20; Pulse Ox 99% on R/A; ao 23:57 BP 154 / 84; Pulse 82; Resp 16; Pulse Ox 100% on R/A; Pain 0/10; ao 18:29 Body Mass Index 23.86 (63.05 kg, 162.56 cm) sv ED Course: 18:21 Patient arrived in ED. mr 18:21 Misael Zamorae is Private Physician. mr 18:29 Triage completed. sv 18:54 Arm band placed on. hb 19:14 William Garcias, RN is Primary Nurse. ao 19:21 Martin Walters MD is Attending Physician. tw4 19:58 Radiology exam delayed due to lab results not completed at this time. (BUN/Creatinine). vm2 20:14 Radiology exam delayed due to lab results not completed at this time. (BUN/Creatinine). vm2 20:21 Inserted saline lock: 22 gauge in left hand, using aseptic technique. ao 20:50 Radiology exam delayed due to IV insertion attempt and/or patient not having vm2 appropriate IV at this time. 21:21 Radiology exam delayed due to IV insertion attempt and/or patient not having nj appropriate IV at this time. 21:31 Inserted saline lock: 22 gauge in left upper arm, using aseptic technique. ao 21:56 CT completed. Pt tolerated procedure poorly. Patient moved back from CT. vm2 22:00 No provider procedures requiring assistance completed. ao 22:01 Patient has correct armband on for positive identification. Pulse ox on. NIBP on. ao 22:03 Abdomen In Process Unspecified. EDMS 23:58 IV discontinued, intact, bleeding controlled, No redness/swelling at site. Pressure ao dressing applied. Administered Medications: 20:44 Drug: Zofran 4 mg Route: IVP; Site: left hand; ao 23:37 Follow up: Response: No adverse reaction ao 21:03 Drug: morphine 4 mg Route: IVP; Site: left hand; ao 23:37 Follow up: Response: No adverse reaction ao 21:04 Not Given (Patient Refused): Bentyl 20 mg IM once ao Point of Care Testing: Blood Glucose: 18:29 Blood Glucose: 228 mg/dL; sv Ranges: Outcome: 23:23 Discharge ordered by tw4 23:57 Discharged to home ambulatory. ao 23:57 Condition: stable 23:57 Discharge instructions given to patient, Instructed on discharge instructions, follow up and referral plans. Demonstrated understanding of Patient refused to sign dc papers 23:58 Patient left the ED. ao Signatures: Dispatcher [employer] EDGloria Varghese RN RN sv [place] Alex, RN RN ao Baxter, Heather, RN RN hb Jordan, [facility] Martin Walters MD MD tw4 Corrections: (The following items were deleted from the chart) 21:55 19:20 General: Appears ao ao
--- NOTE | 2018-10-13 11:04 | RAD REPORT ---
EXAM DESCRIPTION: CT - Abdomen Pelvis Wo Contrast - 10/12/2018 10:27 pm CLINICAL HISTORY: 58 years Female right lower quadrant pain, groin and suprapubic pain, diarrhea , nausea/vomiting x1 day. TECHNIQUE: Contiguous axial images obtained through the abdomen and pelvis without the administratio n of IV contrast. Coronal and sagittal reformatted images provided. This CT exam was performed according to our departmental dose-optimization program, which includes on e or more of the following dose reduction techniques: automated exposure control, adjustment of the m A and/or kV according to patient size, and/or use of iterative reconstruction technique. COMPARISON: Comparison is made to the prior examination dated 07/31/2018. FINDINGS: Patchy bibasilar atelectasis. Again seen is cirrhosis of the liver. Stable dystrophic calcifications in the liver and spleen consis tent with prior granulomatous disease. Stable scarring in the inferior right lobe of the liver. No vi sualized new hepatic lesion on this noncontrast study. Again seen is moderate splenomegaly. There is trace perihepatic ascites with diffuse abdominal varice s. Prior cholecystectomy without abnormal biliary dilatation. Pancreatic atrophy without focal lesion on this noncontrast study. Shotty periportal and peripancreat ic lymph nodes are stable. Stable right renal cyst. No hydronephrosis on either side. Both adrenal glands, the left kidney, and the urinary bladder are stable in appearance. Prior hysterectomy Mild diffuse thickening of the distal stomach, ascending colon, and rectosigmoid are nonspecific in t he setting of portal hypertension. There is no bowel obstruction, pneumatosis, free intraperitoneal a ir, or visualized abscess. Prior appendectomy. Atherosclerosis of the abdominal aorta without aneurysm or evidence of acute retroperitoneal hemorrha ge. Chronic degenerative changes present throughout the spine. Stable chronic compression deformity at the superior endplate of L2. Likely bone island again noted in the left femoral neck. IMPRESSION: Cirrhosis and portal hypertension. No new hepatic lesion on this noncontrast study. Mild diffuse thickening of the distal stomach, ascending colon, and rectosigmoid are nonspecific in t he setting of portal hypertension. Correlate clinically for gastritis and/or colitis. No bowel obstru ction or perforation. Prior appendectomy. Electronically signed by: Lauryn Peacock MD 10/12/2018 10:15 PM CDT Due to temporary technical issues with the PACS/Fluency reporting system, reports are being signed by the in house radiologist as a courtesy to ensure prompt reporting. The interpreting radiologist is f ully responsible for the content of the report.
== END 2018-10-12 23:58 | disposition home or self-care (01) ==
LOC: ER 18:17
DX: R19.7 Diarrhea, unspecified (principal); Z85.3 Personal history of malignant neoplasm of breast; Z88.1 Allergy status to other antibiotic agents; Z88.3 Allergy status to other anti-infective agents; Z88.5 Allergy status to narcotic agent; Z90.13 Acquired absence of bilateral breasts and nipples
CPT/HCPCS: 85025; 80048; 36415; 82962; 80076; 83690; 74176; 96375; 96374; 99284; J0500

== ENCOUNTER 2019-01-31 19:57 | Emergency (ER) | payer OTHER ==
--- OUTSIDE RECORDS SUMMARY | 2019-01-31 20:01 | XMS REPORT | Clinical Summary ---
:1960 Author Organization [facility] Address [address] [place] [address] Care Team Providers Name Role Phone Pcp, [...] 34% one year mortality based on the [place] surgical risk score. In addition, she is [...] Britany Olmedo, Rec CD (1) MA after 01/30/2018 Social History Tobacco Use Types Packs/Day Years [...] Taken Blood Pressure 137/85 09/03/2018 1:12 PM SPANISH INTERPRETER/TRANSLATOR Pulse 100 09/03/2018 1:12 PM SPANISH INTERPRETER/TRANSLATOR Temperature 36.8 C (98.3 F) 09/03/2018 1:12 PM SPANISH INTERPRETER/TRANSLATOR Respiratory Rate 16 09/03/2018 1:12 PM SPANISH INTERPRETER/TRANSLATOR Oxygen Saturation 97% 09/03/2018 1:12 PM SPANISH INTERPRETER/TRANSLATOR Inhaled Oxygen Concentration - - Weight 71.6 kg (157 lb 14.4 oz) 09/03/2018 1:12 PM SPANISH INTERPRETER/TRANSLATOR Height 158.5 cm (5' 2.4") 09/03/2018 1:12 PM SPANISH INTERPRETER/TRANSLATOR Body Mass Index 28.51 09/03/2018 1:12 PM SPANISH INTERPRETER/TRANSLATOR Plan of Treatment Not on file Procedures Procedure Name Priority Date/Time Associated Diagnosis Comments CBC W/PLT COUNT & Routine 09/03/2018 2:47 Cirrhosis of liver Results for this AUTO DIFFERENTIAL PM SPANISH INTERPRETER/TRANSLATOR without ascites, procedure are in unspecified hepatic the results cirrhosis type (HCC) section. ALPHA FETOPROTEIN Routine 09/03/2018 2:47 Cirrhosis of liver Results for this (AFP), TUMOR MARKER PM SPANISH INTERPRETER/TRANSLATOR without ascites, procedure are in unspecified hepatic the results cirrhosis type (HCC) section. PROTHROMBIN TIME/INR Routine 09/03/2018 2:47 Cirrhosis of liver Results for this PM SPANISH INTERPRETER/TRANSLATOR without ascites, procedure are in unspecified hepatic the results cirrhosis type (HCC) section. CBC W/PLT COUNT & Routine 09/03/2018 2:47 Cirrhosis of liver Results for this AUTO DIFFERENTIAL PM SPANISH INTERPRETER/TRANSLATOR without ascites, procedure are in unspecified hepatic the results cirrhosis type (HCC) section. HEPATIC FUNCTION Routine 09/03/2018 2:46 Cirrhosis of liver Results for this PANEL PM SPANISH INTERPRETER/TRANSLATOR without ascites, procedure are in unspecified hepatic the results cirrhosis type (HCC) section. BASIC METABOLIC PANEL Routine 09/03/2018 2:46 Cirrhosis of liver Results for this (7) PM SPANISH INTERPRETER/TRANSLATOR without ascites, procedure are in unspecified hepatic the results cirrhosis type (HCC) section. after 01/30/2018 Results CBC with platelet count + automated diff (09/03/2018 2:47 PM SPANISH INTERPRETER/TRANSLATOR) WBC 3.3 (L) 3.5 - 10.5 K/L [facility] RBC 3.88 (L) 3.93 - 5.22 M/L [facility] Hemoglobin 10.4 (L) 11.2 - 15.7 GM/DL [facility] Hematocrit 34.3 34.1 - 44.9 % [facility] MCV 88.4 79.4 - 94.8 fL [facility] MCH 26.8 25.6 - 32.2 pg [facility] MCHC 30.3 (L) 32.2 - 35.5 GM/DL [facility] RDW 17.0 (H) 11.7 - 14.4 % [facility] Platelets 42 (L) 150 - 450 K/CU MM [facility] MPV 10.6 9.4 - 12.3 fL [facility] nRBC 0 0 - 0 /100 WBC [facility] % Neutros 68 % [facility] % Lymphs 25 % [facility] % Monos 7 % [facility] % Eos 1 % [facility] [place] % Baso 0 % [facility] # Neutros 2.21 1.56 - 6.13 K/L [facility] # Lymphs 0.80 (L) 1.18 - 3.74 K/L [facility] # Monos 0.22 (L) 0.24 - 0.36 K/L [facility] # Eos 0.03 (L) 0.04 - 0.36 K/L [facility] # Baso 0.01 0.01 - 0.08 K/L [facility] Immature Granulocytes-Relative 0 0 - 1 % [facility] Specimen Blood Performing Organization Address City/[facility]/Zipcode Phone Number [facility] [address] [place] [id number] [place] Alpha fetoprotein (AFP), tumor marker (09/03/2018 2:47 PM SPANISH INTERPRETER/TRANSLATOR) Alpha-Fetoprotein 10.9 (H) <10.0 ng/mL [facility] Specimen Blood Performing Organization Address City/[facility] Phone Number [place] [phone] [place] [address] CENTER Pro-time/INR (09/03/2018 2:47 PM SPANISH INTERPRETER/TRANSLATOR) Protime 14.9 (H) 11.7 - 14.7 seconds [facility] INR 1.2 <=5.9 [facility] Specimen Blood Narrative Performed At RECOMMENDED COUMADIN/WARFARIN INR THERAPY [facility] RANGES STANDARD DOSE: 2.0 - 3.0 Includes: PROPHYLAXIS for venous thrombosis, systemic embolization; TREATMENT for venous thrombosis and/or pulmonary embolus. HIGH RISK: Target INR is 2.5-3.5 for patients with mechanical heart valves. Performing Organization Address [facility] Phone Number [address] [address] [place] Hepatic function panel (09/03/2018 2:46 PM SPANISH INTERPRETER/TRANSLATOR) Protein, Total 7.2 6.0 - 8.3 gm/dL [facility] Albumin 3.5 3.5 - 5.0 g/dL [facility] Total Bilirubin 0.8 0.2 - 1.2 mg/dL [facility] Bilirubin, Direct 0.4 0.1 - 0.5 mg/dL [facility] Alkaline Phosphatase 107 40 - 150 U/L [facility] AST 31 5 - 34 U/L [facility] ALT 15 6 - 55 U/L [facility] Specimen Blood Performing Organization Address City/State/Zipcode Phone Number [facility] [address] [place] [address] [phone] [place] Basic Metabolic Panel (09/03/2018 2:46 PM SPANISH INTERPRETER/TRANSLATOR) Sodium 138 136 - 145 meq/L [facility] Potassium 3.8 3.5 - 5.1 meq/L [facility] Chloride 103 98 - 107 meq/L [facility] CO2 27 22 - 29 meq/L [facility] BUN 7 7 - 21 mg/dL [facility] Creatinine 0.78 0.57 - 1.25 mg/dL [facility] Glucose 226 (H) 70 - 105 mg/dL [facility] Calcium 9.2 8.4 - 10.2 mg/dL [facility] EGFR 76Comment: ESTIMATED GFR IS mL/min/1.73 sq m [facility] NOT ACCURATE CREATININE [facility] CENTER CLEARANCE IN PREDICTING GLOMERULAR FILTRATION RATE. ESTIMATED GFR IS NOT APPLICABLE FOR DIALYSIS PATIENTS. Specimen Blood Performing Organization Address City/State/Zipcode Phone Number [facility] [address] [place] [address] [phone] CENTER after 01/30/2018 Insurance Payer Benefit Plan / Subscriber ID Type Phone Address Group MEDICARE MEDICARE A B xxxxxxxxxxx Medicare MEDICAID - MEDICAID [facility] ST[facility] xxxxxxxxx Medicaid Contracted MGD CARE PLAN
--- OUTSIDE RECORDS SUMMARY | 2019-01-31 20:01 | XMS REPORT ---
:1960 [facility] Address [address] [place] [address] Care Team Providers Name Role Phone ROGELIO BARTH Unavailable Unavailable AACCIA KUMAR Unavailable Unavailable JEF CAMPOS Unavailable Unavailable Problems This patient has no known problems. Allergies, Adverse Reactions, Alerts This patient has no known allergies or adverse reactions. Medications This patient has no known medications. Results Test Description Test Time Test Comments Text Results Atomic Results Result Comments ALPHA FETOPROTEIN (AFP), TUMOR MARKER 2018-09-03 16:30:00 Test Item Value Reference Range Comments ALPHA-FETOPROTEIN (BEAKER) (test iihm=7381) 10.9 ng/mL <10.0 HEPATIC FUNCTION [id number] 16:13:00 Test Item Value Reference Range Comments TOTAL PROTEIN (BEAKER) (test yksj=153) 7.2 gm/dL 6.0-8.3 ALBUMIN (BEAKER) (test kktw=3026) 3.5 g/dL 3.5-5.0 BILIRUBIN TOTAL (BEAKER) (test nxqh=149) 0.8 mg/dL 0.2-1.2 BILIRUBIN DIRECT (BEAKER) (test kglw=383) 0.4 mg/dL 0.1-0.5 ALKALINE PHOSPHATASE (BEAKER) (test lvtp=880) 107 U/L 40-150 AST (SGOT) (BEAKER) (test ukid=963) 31 U/L 5-34 ALT (SGPT) (BEAKER) (test prxn=902) 15 U/L 6-55 BASIC METABOLIC [id number] 16:13:00 Test Item Value Reference Range Comments SODIUM (BEAKER) (test 138 meq/L 136-145 yhnr=674) POTASSIUM (BEAKER) (test 3.8 meq/L 3.5-5.1 hbon=784) CHLORIDE (BEAKER) (test 103 meq/L 98-107 lbso=239) CO2 (BEAKER) (test 27 meq/L 22-29 bdpn=463) BLOOD UREA NITROGEN 7 mg/dL 7-21 (BEAKER) (test dfjz=479) CREATININE (BEAKER) (test 0.78 mg/dL 0.57-1.25 hrxs=868) GLUCOSE RANDOM (BEAKER) 226 mg/dL 70-105 (test xuyj=210) CALCIUM (BEAKER) (test 9.2 mg/dL 8.4-10.2 evso=264) EGFR (BEAKER) (test 76 mL/min/1.73 sq m ESTIMATED GFR IS NOT oqxl=7686) ACCURATE CREATININE CLEARANCE IN PREDICTING GLOMERULAR FILTRATION RATE. ESTIMATED GFR IS NOT APPLICABLE FOR DIALYSIS PATIENTS. PROTHROMBIN TIME/[id number] 16:05:00 Test Item Value Reference Range Comments PROTIME (BEAKER) (test uhif=898) 14.9 seconds 11.7-14.7 INR (BEAKER) (test jtqs=007) 1.2 <=5.9 RECOMMENDED COUMADIN/WARFARIN INR THERAPY RANGESSTANDARD DOSE: 2.0 - 3.0 Includes: PROPHYLAXIS forvenous thrombosis, systemic embolization; TREATMENT for venous thrombosis and/or pulmonary embolus.HIGH RISK: Target INR is 2.5-3.5 for patients with mechanical heart valves.CBC W/PLT COUNT & AUTO [id number] 15:57:00 Test Item Value Reference Range Comments WHITE BLOOD CELL COUNT (BEAKER) (test nkbl=133) 3.3 K/ L 3.5-10.5 RED BLOOD CELL COUNT (BEAKER) (test cziy=016) 3.88 M/ L 3.93-5.22 HEMOGLOBIN (BEAKER) (test ogvv=159) 10.4 GM/DL 11.2-15.7 HEMATOCRIT (BEAKER) (test jsss=766) 34.3 % 34.1-44.9 MEAN CORPUSCULAR VOLUME (BEAKER) (test fhyu=739) 88.4 fL 79.4-94.8 MEAN CORPUSCULAR HEMOGLOBIN (BEAKER) (test 26.8 pg 25.6-32.2 ofzs=761) MEAN CORPUSCULAR HEMOGLOBIN CONC (BEAKER) (test 30.3 GM/DL 32.2-35.5 sjnj=701) RED CELL DISTRIBUTION WIDTH (BEAKER) (test 17.0 % 11.7-14.4 jvuq=375) PLATELET COUNT (BEAKER) (test dfsy=751) 42 K/CU MM 150-450 MEAN PLATELET VOLUME (BEAKER) (test nraj=613) 10.6 fL 9.4-12.3 NUCLEATED RED BLOOD CELLS (BEAKER) (test 0 /100 WBC 0-0 tkoh=814) NEUTROPHILS RELATIVE PERCENT (BEAKER) (test 68 % wadr=925) LYMPHOCYTES RELATIVE PERCENT (BEAKER) (test 25 % vboz=774) MONOCYTES RELATIVE PERCENT (BEAKER) (test 7 % xgqr=398) EOSINOPHILS RELATIVE PERCENT (BEAKER) (test 1 % wmoi=918) BASOPHILS RELATIVE PERCENT (BEAKER) (test 0 % rbfk=226) NEUTROPHILS ABSOLUTE COUNT (BEAKER) (test 2.21 K/ L 1.56-6.13 shxm=759) LYMPHOCYTES ABSOLUTE COUNT (BEAKER) (test 0.80 K/ L 1.18-3.74 vlyl=231) MONOCYTES ABSOLUTE COUNT (BEAKER) (test nnpi=785) 0.22 K/ L 0.24-0.36 EOSINOPHILS ABSOLUTE COUNT (BEAKER) (test 0.03 K/ L 0.04-0.36 iudd=745) BASOPHILS ABSOLUTE COUNT (BEAKER) (test kdqu=885) 0.01 K/ L 0.01-0.08 IMMATURE GRANULOCYTES-RELATIVE PERCENT (BEAKER) 0 % 0-1 (test koye=3289) Stress Test - Treadmill ONLY [place] [address] Patient Name : GERA PALUMBO MR #: [id number] : 1960 Age/Sex: 57/F Adm Physician : ACACIA KUMAR MD Admit Date : 10/30 Location : [facility] Room/Bed : [place] [address] REPORT: Cardiology Report DATE OF STUDY: October [...] ventricular function, calculated ejection fraction 54%. Job#: [id number] GH cc: ACACIA KUMAR MD Signature Date Dictated By: VANNESA ANTON MD Transcribed By: EDS on 10/31/17 & lt;Electronically signed by VANNESA ANTON MD><<Signature on File>& gt;11/02/17 0523 COPY TO:CT CHEST WO [place] [address] Patient Name: GERA PALUMBO MR #: [id number] : 1960 Age/Sex: 57/F Req #: [id number] [facility] Physician: ACACIA KUMAR MD Ordered by: ACACIA KUMAR MD Report #: [id number] Location: [facility] Room/Bed: [place] [address] Procedure: [id number] CT/CT CHEST WO Exam Date: 10/30/17 Exam [...] on 10/30/17 1318 COPY TO: ACACIA KUMAR [facility]/PA CXR [place] [address] Patient Name: GERA PALUMBO MR # : [id number] : 1960 Age/Sex: 56/F Req #: [id number] Adm Physician: Ordered by: JEF CAMPOS MD Report #: [id number] Location: ER Room/Bed: Procedure: [id number] DX /ABDOMEN ACUTE SERIES W/PA CXR Exam [...] for bowel obstruction. Signed by: Dr. Theo Simmons M.D. on 04/18/2017 2 :40 AM Dictated By: THEO SIMMONS MD 9 Transcribed By: DONY on 04/18/17239 COPY TO: JEF CAMPOS MD
[2019-01-31 20:56] LABS: Absolute Lymphocytes (CBC) 0.9 K/uL (0.7-4.9); Basophils % 0.5 % (0-1.3); Eosinophils % 1.2 % (0-4.4); Lymphocytes % 20.9 % (15.3-44.8); MPV 8.1 fL (7.6-11.3); Monocytes % 5.2 % (3.3-12.3); RBC Red Blood Cell Count 3.87 M/uL (3.86-4.86)
[2019-01-31 21:12] LABS: Urine Bacteria <20 /HPF (<20); Urine Culture Reflex Order REFLEXED; Urine RBC <5 /HPF (NONE SEEN)
[2019-01-31 21:42] LABS: Urine Blood NEGATIVE (NEG); Urine Glucose 2+ (NEG); Urine Protein NEGATIVE (NEG); Urine Specific Gravity 1.015 (1.005-1.030)
[2019-01-31] MEDS ORDERED: CEFTRIAXONE/SWI 1gm 1 GM/10 ML SYR ONE (21:55)
[2019-01-31 21:56] LABS: Blood Morphology Comment NOT SEEN (NOT SEEN); Platelet Estimate DECR; Urine White Blood Cell Casts OK
--- NOTE | 2019-01-31 22:03 | ER ---
Nurse's Notes [facility] Name: Jeannette Ashby Age: 58 yrs Sex: Female : 1960 Arrival Date: 01/31/2019 Time: 20:01 Bed 7 Private MD: Diagnosis: Headache;Urinary tract infection, site not specified;Paresthesia of skin Presentation: 01/31 20:04 Presenting complaint: Patient states: "My chest is numb on the right side and my head aj1 is hurting" Reports the numbness started at 1600 today and the headache started an hour ago. Patient also reports that she is having some swelling to her legs and abdomen. Denies SOB. Transition of care: patient was not received from another setting of care. Onset of symptoms was January 31, 2019. Risk Assessment: Do you want to hurt yourself or someone else? Patient reports no desire to harm self or others. Initial Sepsis Screen: Does the patient meet any 2 criteria? HR > 90 bpm. No. Patient's initial sepsis screen is negative. Does the patient have a suspected source of infection? No. Patient's initial sepsis screen is negative. Care prior to arrival: None. 20:04 Method Of Arrival: Ambulatory aj1 20:04 Acuity: VERONICA 3 aj1 Triage Assessment: 20:07 Headache History: Denies prior headaches. General: Appears in no apparent distress. aj1 comfortable, Behavior is calm, cooperative, appropriate for age. Pain: Complains of pain in forehead Pain does not radiate. Pain currently is 7 out of 10 on a pain scale. Pain began 1 hour ago. Also complains of no other associated symptoms. Neuro: Level of Consciousness is awake, alert, obeys commands, Oriented to person, place, time, situation, Reports headache. Cardiovascular: Patient's skin is warm and dry. Respiratory: Airway is patent Respiratory effort is even, unlabored, Respiratory pattern is regular, symmetrical. Historical: - Allergies: 20:07 Zithromax; aj1 20:07 tramadol; aj1 20:07 Toradol; aj1 20:07 Erythromycin; aj1 20:07 Demerol; aj1 20:07 Darvocet-N 100; aj1 - Home Meds: 20:07 insulin 70/30 [Active]; Coreg Oral [Active]; ernestro [Active]; Seroquel Oral [Active]; aj1 Methadone Oral [Active]; - PMHx: 20:07 Anxiety; Cancer, Breast; Chronic pain; Colitis; COPD; Depression; aj1 20:51 Diabetes - IDDM; Liver cell carcinoma; MUSCLE WEAKNESS; ak1 - PSHx: 20:51 Appendectomy; Hysterectomy; Cholecystectomy; ; bilateral mastectomy; breast ak1 reconstructive surgery; Liver Ablation; - Immunization history:: Flu vaccine is not up to date. - Social history:: Smoking status: Patient uses tobacco products, smokes one-half pack cigarettes per day. - Ebola Screening: : Patient denies travel to an Ebola-affected area in the 21 days before illness onset. Screenin:14 Abuse screen: Denies threats or abuse. Denies injuries from another. Nutritional ak1 screening: No deficits noted. Tuberculosis screening: No symptoms or risk factors identified. Fall Risk None identified. Assessment: 20:48 General: Appears in no apparent distress. comfortable, Behavior is calm, cooperative. ak1 Pain: Complains of pain in chest and face and forehead. Neuro: Level of Consciousness is awake, alert, obeys commands, Oriented to person, place, time, situation, Reel Worker are equal bilaterally Moves all extremities. Gait is steady, Speech is normal, Facial symmetry appears normal, Numbness in chest pt was able to feel provider touching her chest during assessment. . Cardiovascular: Reports chest pain, Heart tones S1 S2 present Capillary refill < 3 seconds. Respiratory: No deficits noted. GI: No signs and/or symptoms were reported involving the gastrointestinal system. : No signs and/or symptoms were reported regarding the genitourinary system. EENT: No signs and/or symptoms were reported regarding the EENT system. Derm: Reports numbness to chest. pt able to feel sensation with eyes closed when provider assessed numbness to chest area. Musculoskeletal: Circulation, motion, and sensation intact. pt with steady gait to ER restroom. 22:02 Reassessment: pt refused recollect lab work. pt stated she is ready to go home. ERP ak1 notified. 22:06 Reassessment: pt refused IV antibiotics for UTI, pt removed her own IV. pt left with ak1 steady gait to ER lobby where she stated her friend was waiting. Vital Signs: 20:07 BP 186 / 91; Pulse 98; Resp 20; Temp 98.6(O); Pulse Ox 100% on R/A; Weight 63.5 kg (R); aj1 Height 5 ft. 4 in. (162.56 cm) (R); Pain 7/10; 22:06 BP 168 / 84; Pulse 88; Resp 16; Temp 98.5; Pulse Ox 100% on R/A; ak1 20:07 Body Mass Index 24.03 (63.50 kg, 162.56 cm) aj1 ED Course: 20:01 Patient arrived in ED. ag3 20:05 Triage completed. aj1 20:07 Arm band placed on Patient placed in an exam room. aj1 20:11 Nirmal Barry NP is PHCP. pm1 20:11 Martin Walters MD is Attending Physician. pm1 20:13 Lolis Ponce, RN is Primary Nurse. ak1 20:14 Patient has correct armband on for positive identification. ak1 20:47 Initial lab(s) drawn, by wa, sent to lab. Urine collected: clean catch specimen, clear. ak1 Inserted saline lock: 22 gauge in right hand, using aseptic technique. Blood collected. 20:50 No provider procedures requiring assistance completed. ak1 20:51 XRAY Chest (1 view) Sent. ak1 20:53 XRAY Chest (1 view) In Process Unspecified. EDMS 20:59 CT Head Brain wo Cont In Process Unspecified. EDMS 22:14 IV discontinued, intact, bleeding controlled, No redness/swelling at site. Pressure ak1 dressing applied. Administered Medications: 22:05 Not Given (Patient Refused; pt removed her IV): Rocephin 1 grams IV at calculated rate ak1 once; Given slow IV push per pharmacy instructions Outcome: 22:01 Discharge ordered by . pm1 22:14 Discharged to home ambulatory, with friend. ak1 22:14 Condition: good 22:14 Discharge instructions given to patient, Instructed on discharge instructions, follow up and referral plans. no drinking with medication, no driving heavy equipment, medication usage, Demonstrated understanding of instructions, follow-up care, medications, Prescriptions given X 1. 22:14 Patient left the ED. ak1 Signatures: Dispatcher [employer] EDMS Briana Contreras RN RN aj Lolis Ponce RN RN ak1 [place], Nirmal, REPATCHER REPATCHER pm1 [place], Yenni ag3
--- NOTE | 2019-01-31 22:03 | EDPHYS ---
Physician Documentation [facility] Name: Jeannette Ashby Age: 58 yrs Sex: Female : 1960 Arrival Date: 01/31/2019 Time: 20:01 Bed 7 Private MD: ED Physician Martin Walters HPI: 01/31 20:39 This 58 yrs old Female presents to ER via Ambulatory with complaints of pm1 Headache, right side of chest numbness. 20:39 The patient complains of pain to the right side of head. The patient describes the pm1 headache as aching. Onset: The symptoms/episode began/occurred today. Associated signs and symptoms: Pertinent positives: reports right sided breast numbness, Pertinent negatives: dizziness, fever, nausea, rash, vomiting, weakness. Severity of symptoms: in the emergency department the pain is unchanged. The symptoms are alleviated by nothing. the symptoms are aggravated by nothing. The patient has not experienced similar symptoms in the past. The patient has not recently seen a physician. Patient also complaining of five days of burning with urination. Historical: - Allergies: 20:07 Zithromax; aj1 20:07 tramadol; aj1 20:07 Toradol; aj1 20:07 Erythromycin; aj1 20:07 Demerol; aj1 20:07 Darvocet-N 100; aj1 - Home Meds: 20:07 insulin 70/30 [Active]; Coreg Oral [Active]; ernestro [Active]; Seroquel Oral [Active]; aj1 Methadone Oral [Active]; - PMHx: 20:07 Anxiety; Cancer, Breast; Chronic pain; Colitis; COPD; Depression; aj1 20:51 Diabetes - IDDM; Liver cell carcinoma; MUSCLE WEAKNESS; ak1 - PSHx: 20:51 Appendectomy; Hysterectomy; Cholecystectomy; ; bilateral mastectomy; breast ak1 reconstructive surgery; Liver Ablation; - Immunization history:: Flu vaccine is not up to date. - Social history:: Smoking status: Patient uses tobacco products, smokes one-half pack cigarettes per day. - Ebola Screening: : Patient denies travel to an Ebola-affected area in the 21 days before illness onset. ROS: 20:39 Constitutional: Negative for fever, chills, and weight loss, Eyes: Negative for injury, pm1 pain, redness, and discharge, ENT: Negative for injury, pain, and discharge, Neck: Negative for injury, pain, and swelling, Cardiovascular: Negative for chest pain, palpitations, and edema, Respiratory: Negative for shortness of breath, cough, wheezing, and pleuritic chest pain, Abdomen/GI: Negative for abdominal pain, nausea, vomiting, diarrhea, and constipation, Back: Negative for injury and pain, MS/Extremity: Negative for injury and deformity, Skin: Negative for injury, rash, and discoloration. 20:39 : Positive for burning with urination. 20:39 Neuro: Positive for headache, right breast numbness, Negative for dizziness, weakness. Exam: 20:39 Constitutional: This is a well developed, well nourished patient who is awake, alert, pm1 and in no acute distress. Head/Face: Normocephalic, atraumatic. Eyes: Pupils equal round and reactive to light, extra-ocular motions intact. Lids and lashes normal. Conjunctiva and sclera are non-icteric and not injected. Cornea within normal limits. Periorbital areas with no swelling, redness, or edema. ENT: Nares patent. No nasal discharge, no septal abnormalities noted. Tympanic membranes are normal and external auditory canals are clear. Oropharynx with no redness, swelling, or masses, exudates, or evidence of obstruction, uvula midline. Mucous membranes moist. Neck: Trachea midline, no thyromegaly or masses palpated, and no cervical lymphadenopathy. Supple, full range of motion without nuchal rigidity, or vertebral point tenderness. No Meningismus. Chest/axilla: Normal chest wall appearance and motion. Nontender with no deformity. No lesions are appreciated. Cardiovascular: Regular rate and rhythm with a normal S1 and S2. No gallops, murmurs, or rubs. No pulse deficits. Respiratory: Lungs have equal breath sounds bilaterally, clear to auscultation and percussion. No rales, rhonchi or wheezes noted. No increased work of breathing, no retractions or nasal flaring. Abdomen/GI: Soft, non-tender, with normal bowel sounds. No distension or tympany. No guarding or rebound. No evidence of tenderness throughout. Back: No spinal tenderness. No costovertebral tenderness. Full range of motion. Skin: Warm, dry with normal turgor. Normal color with no rashes, no lesions, and no evidence of cellulitis. MS/ Extremity: Pulses equal, no cyanosis. Neurovascular intact. Full, normal range of motion. 20:39 Neuro: Orientation: is normal, Motor: is normal, moves all fours, Sensation: is normal, no obvious gross deficits, Gait: is steady, at a normal pace, without difficulty. Vital Signs: 20:07 BP 186 / 91; Pulse 98; Resp 20; Temp 98.6(O); Pulse Ox 100% on R/A; Weight 63.5 kg (R); aj1 Height 5 ft. 4 in. (162.56 cm) (R); Pain 7/10; 22:06 BP 168 / 84; Pulse 88; Resp 16; Temp 98.5; Pulse Ox 100% on R/A; ak1 20:07 Body Mass Index 24.03 (63.50 kg, 162.56 cm) aj1 MDM: 20:23 Patient medically screened. pm1 20:39 Data reviewed: vital signs. Data interpreted: Pulse oximetry: on room air is 100 %. pm1 Interpretation: normal. 21:59 Refusal of service: The patient/guardian displays adequate decision making capability pm1 and despite a detailed discussion of alternatives, benefits, risks, and consequences refuses: all lab tests, Patient does not want recollection of her lab work. Patient's headache has resolved and she wants to go home. Will give the patient prescription medications for UTI. 22:01 Counseling: I had a detailed discussion with the patient and/or guardian regarding: the pm1 historical points, exam findings, and any diagnostic results supporting the discharge/admit diagnosis, the need for outpatient follow up, to return to the emergency department if symptoms worsen or persist or if there are any questions or concerns that arise at home. 01/31 20:27 Order name: LFT's pm1 01/31 20:27 Order name: Basic Metabolic Panel pm1 01/31 20:27 Order name: CBC with Diff; Complete Time: 22:02 pm1 01/31 20:27 Order name: Urine Microscopic Only; Complete Time: 21:15 pm1 01/31 20:27 Order name: XRAY Chest (1 view) pm1 01/31 20:27 Order name: CT Head Brain wo Cont pm1 01/31 20:49 Order name: Urine Dipstick--Ancillary (enter results); Complete Time: 21:48 cm6 01/31 21:01 Order name: CBC Smear Scan; Complete Time: 22:02 [facility] 01/31 21:16 Order name: Urine Culture [facility] 01/31 20:27 Order name: EKG; Complete Time: 20:29 pm1 01/31 20:27 Order name: Cardiac monitoring; Complete Time: 21:15 pm1 01/31 20:27 Order name: EKG - Nurse/Tech; Complete Time: 21:15 pm1 01/31 20:27 Order name: IV Saline Lock; Complete Time: 20:52 pm1 01/31 20:27 Order name: Labs collected and sent; Complete Time: 20:51 pm1 01/31 20:27 Order name: O2 Per Protocol; Complete Time: 20:51 pm1 01/31 20:27 Order name: O2 Sat Monitoring; Complete Time: 20:51 pm1 01/31 20:27 Order name: Urine Dipstick-Ancillary (obtain specimen); Complete Time: 20:51 pm1 Administered Medications: 22:05 Not Given (Patient Refused; pt removed her IV): Rocephin 1 grams IV at calculated rate ak1 once; Given slow IV push per pharmacy instructions Disposition: 01/31/19 22:01 Discharged to Home. Impression: Headache, Urinary tract infection, site not specified, Paresthesia of skin. - Condition is Stable. - Discharge Instructions: General Headache Without Cause, Paresthesia, Urinary Tract Infection, Adult. - Prescriptions for Macrobid 100 mg Oral Capsule - take 1 capsule by ORAL route every 12 hours for 10 days; 20 capsule. - Medication Reconciliation Form, Thank You Letter, Antibiotic Education, Prescription Opioid Use form. - Follow up: Emergency Department; When: As needed; Reason: Worsening of condition. Follow up: Private Physician; When: 2 - 3 days; Reason: Recheck today's complaints, Continuance of care, Re-evaluation by your physician. - Problem is new. - Symptoms have improved. Addendum: 02/02/2019 04:47 Co-signature as Attending Physician, Martin Walters MD I agree with the assessment and t w4 plan of care. Signatures: Dispatcher [employer] Briana Giraldo RN RN aj1 Lolis Ponce RN RN ak1 Nirmal Barry, MANAGER BUSINESS BANKING MANAGER BUSINESS BANKING pm1 Martin Walters MD MD tw4 Corrections: (The following items were deleted from the chart) 01/31 22:05 20:27 Urine Test ordered. pm1 ak1 22:14 22:01 01/31/2019 22:01 Discharged to Home. Impression: Headache; Urinary tract ak1 infection, site not specified; Paresthesia of skin. Condition is Stable. Forms are Medication Reconciliation Form, Thank You Letter, Antibiotic Education, Prescription Opioid Use. Follow up: Emergency Department; When: As needed; Reason: Worsening of condition. Follow up: Private Physician; When: 2 - 3 days; Reason: Recheck today's complaints, Continuance of care, Re-evaluation by your physician. Problem is new. Symptoms have improved. pm1
--- NOTE | 2019-02-01 08:08 | RAD REPORT ---
EXAM DESCRIPTION: Kelli Single View01/31/2019 8:53 pm CLINICAL HISTORY: Chest pain COMPARISON: March 2018 FINDINGS: The lungs appear clear of acute infiltrate. Calcified lung granulomas. The heart is normal size IMPRESSION: No acute abnormalities displayed
--- NOTE | 2019-02-01 09:54 | RAD REPORT ---
EXAM DESCRIPTION: CT - Head Brain Wo Cont - 01/31/2019 9:38 pm CLINICAL HISTORY: 58 years Female HEADACHE COMPARISON: None TECHNIQUE: Images were obtained in axial, sagittal, and coronal planes. This exam was performed according to our departmental dose-optimization program which includes use of Automated Exposure Control, adjustment of the mA and/or kV according to patient size and/or use of i terative reconstruction technique. FINDINGS: Ventricular system appears normal. No abnormal areas of increased or decreased attenuation are seen involving the brain parenchyma. No evidence for skull fracture. Unremarkable paranasal sinuses. Sclerotic changes left mastoid air ce lls. IMPRESSION: No acute intracranial abnormality. No evidence for hemorrhage, mass lesion, or large acu te infarction. Electronically signed by: Bea Garcia MD 01/31/2019 9:33 PM CDT Due to temporary technical issues with the PACS/Fluency reporting system, reports are being signed by the in house radiologist as a courtesy to ensure prompt reporting. The interpreting radiologist is f ully responsible for the content of the report.
--- NOTE | 2019-02-01 10:16 | EKG ---
Test Date: 2019-01-31 Test Time: 20:58:53 Ship Design Teacher: MIREYA MEASUREMENT RESULTS: Intervals: Rate: 93 MD: 190 QRSD: 126 QT: 422 QTc: 524 [place]: P: 69 MD: 190 QRS: 8 T: 86 INTERPRETIVE STATEMENTS: Normal sinus rhythm Left bundle branch block Abnormal ECG Compared to ECG 04/08/2018 12:29:33 Left bundle-branch block now present Sinus tachycardia no longer present Electronically Signed On 02-01-19 10:16:09 CDT by Dewayne Hopper
== END 2019-01-31 22:14 | disposition home or self-care (01) ==
LOC: ER 19:57
DX: N39.0 Urinary tract infection, site not specified (principal); R20.2 Paresthesia of skin; R51 Headache; F41.9 Anxiety disorder, unspecified; E11.9 Type 2 diabetes mellitus without complications; J44.9 Chronic obstructive pulmonary disease, unspecified; F32.9 Major depressive disorder, single episode, unspecified; C50.919 Malignant neoplasm of unspecified site of unspecified female breast; C22.7 Other specified carcinomas of liver; Z88.1 Allergy status to other antibiotic agents; Z88.5 Allergy status to narcotic agent; Z79.4 Long term (current) use of insulin
CPT/HCPCS: 93005; 87088; 85025; 87086; 36415; 70450; 71045; 99284; J0696; 81003; 81015

== ENCOUNTER 2020-01-25 10:18 | Emergency (ER) | payer OTHER ==
[2020-01-25 11:24] LABS: Basophils % 1.2 % (0-1.3); Hematocrit 34.2 % (36.0-45.0); Lymphocytes % 34.1 % (15.3-44.8); MPV 9.4 fL (7.6-11.3); RBC Red Blood Cell Count 3.68 M/uL (3.86-4.86)
[2020-01-25 11:52] LABS: BUN Blood Urea Nitrogen 13 mg/dL (7-18); Bicarbonate 29 mmol/L (21-32); Potassium 4.1 mmol/L (3.5-5.1); Sodium Level 136 mmol/L (136-145)
[2020-01-25 11:53] LABS: Glucose Level 532 mg/dL (74-106)
[2020-01-25 12:37] LABS: Blood Morphology Comment NOT SEEN (NOT SEEN); Platelet Estimate DECR
--- NOTE | 2020-01-25 13:35 | RAD REPORT ---
EXAM DESCRIPTION: USExtrem Venous W Compress Bil01/25/2020 1:24 pm CLINICAL HISTORY: Bilateral leg swelling COMPARISON: none FINDINGS: The common femoral, superficial femoral, popliteal and posterior tibial veins bilaterally are compressible and demonstrate augmentation. Doppler demonstrates good flow. IMPRESSION: No evidence of deep venous thrombosis involving either lower extremity.
--- NOTE | 2020-01-25 13:59 | RAD REPORT ---
EXAM DESCRIPTION: Kelli Single View01/25/2020 1:48 pm CLINICAL HISTORY: cough COMPARISON: 2019 FINDINGS: The lungs appear clear of acute infiltrate. The heart is normal size IMPRESSION: No acute abnormalities displayed
--- OUTSIDE RECORDS SUMMARY | 2020-01-25 14:12 | XMS REPORT | Clinical Summary ---
:1960 Author Organization [facility] Address [address] [place] [address] Care Team Providers Name Role Phone Asked, Pcp Primary Care Provider Unavailable Allergies No Known Allergies Medications No known medications Active Problems No known active problems Encounters Date Type Specialty Care Team Description 06/08/2019 Office Visit [facility] Constipation , unspecified MD Laureano constipation ty pe (Primary Dx) after 01/24/2019 Social History Tobacco Use Types Packs/Day Years Used Date Current Every Day Smoker 5 Smokeless Tobacco: Never Used Alcohol Use Drinks/Week oz/Week Comments Never Alcohol Habits Answer Date Recorded How often do you have a drink containing alcohol? Never 06/08/2019 How many drinks containing alcohol do you have on a typical Not asked day when you are drinking? How often do you have six or more drinks on one occasion? No t asked Sex Assigned at Date Recorded Not on file Job Start Date Occupation Industry Not on file Not on file Not on file Travel History Travel Start Travel End No recent travel history available. Last Filed Vital Signs Not on file Plan of Treatment Health Maintenance Due Date Last Done Comments DIABETIC RETINAL EYE EXAM 1960 DIABETIC FOOT EXAM 1971 CERVICAL CANCER SCREENING 1982 BREAST CANCER SCREENING 2011 COLONOSCOPY SCREENING 2011 SHINGLES VACCINES (#1) 2011 INFLUENZA VACCINE 02/12/2020 Results Not on fileafter 01/24/2019 Insurance Payer Benefit Plan / Subscriber ID Effective Dates Phone Addre ss Type Group MEDICARE MEDICARE PART A xxxxxxxxxxx 2006-Present [place], [place] Medicare AND B [facility] MEDICAID [facility] xxxxxxxxx 2018-Present HMO [employer] Advance Directives For more information, please contact: [phone] Type Date Recorded 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
--- OUTSIDE RECORDS SUMMARY | 2020-01-25 14:12 | XMS REPORT | Clinical Summary ---
:1960 Author Organization [facility] Address [address] [place] [address] Care Team Providers Name Role Phone Pcp Primary Care Provider Unavailable Allergies Active Allergy Reactions Severity Noted Date Comments Azithromycin Rash, Other (See Comments) Low 08/08/2015 Erythromycin 09/03/2018 Ketorolac 09/03/2018 Tramadol Other (See Comments) 08/08/2015 Other r eaction(s): Insomnia for da ys Unable to sleep Medications Medication Sig Dispensed [...] tablet (20 mg 30 tablet 11 09/03/2018 020 (LASIX) 20 MG total) by mouth tabletIndications daily. : Lower extremity edema Active Problems Problem Noted Date Cirrhosis 09/03/2018 Last Assessment & Plan: Diagnosis based on the laboratory parame ters and imaging. 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 Her condition has decompensated with features of portal hypertension. Cirrhosis guidelines reviewed. Hepatocellular carcinoma 09/03/2018 Last Assessment & Plan: Diagnosis of HCC in December 2017 s/p radiof requency ablation. She was referred for liver transplant evaluation at this time but e xpressed desire not to follow through.There is no evidence of residual tumor on rece nt imaging. Extensive discussion provided that liver transplant is the only defini tive treatment for HCC and recurrence is likely. She understands and maintains he r position. Immunity status testing 09/03/2018 Last Assessment & Plan: All patients with chronic liver disease should be immunized to prevent hepatitis A and hepatitis B. Previous serology indicates immunity to HAV. Recommend HBV booster which can be provided by primary care. Hepatitis C 09/03/2018 Last Assessment & Plan: HCV diagnosed in 1998 s/p partial treatm ent with Interferon / Ribavirin. HCV RNA December 2017 was undetectable. No further interv ention necessary. Chronic viral hepatitis B without delta agent and with out coma 09/03/2018 Last Assessment & Plan: She has evidence of past HBV infection without immunity. HBV DNA from November 2017 undetectable. She may benefit from vaccination which can be obtained by her primary care. Hernia of anterior abdominal wall 09/03/2018 Last Assessment & Plan: She has an umbilical hernia that is bein g evaluated for repair. She has a 34% one year mortality based on the Bladen surgica l risk score. In addition, she is Child-Chang Class A giving her a 10% abdominal surge ry colton-operative mortality risk. Heart murmur 09/03/2018 Last Assessment & Plan: Physical examination revealed an audible fixed S2 split on cardiac examination which may be secondary to a bundle branch bloc k. We recommend cardiology consultation prior to procedure. Lower extremity edema 09/03/2018 Last Assessment & Plan: Assymetrical lower extremity edema on ph ysical examination. We ordered a venous doppler of the lower extremity to assess for venous thrombosis. Previously on Furosemide 20 mg daily. We write for a r efill. Social History Tobacco Use Types Packs/Day Years [...] Not on file Results Not on fileafter 01/24/2019 Insurance Payer Benefit Plan / Subscriber ID Type Phone Address Group MEDICARE MEDICARE A B xxxxxxxxxxx Medicare MEDICAID - MEDICAID [facility] STAR xxxxxxxxx Medicaid Contracted [facility] CARE PLAN
--- OUTSIDE RECORDS SUMMARY | 2020-01-25 14:15 | XMS REPORT | Continuity of Care Document ---
:1960 Author Organization [facility] t Address [address] [place] [address] Care Team Providers Name Role Phone NANCY Primary Care Physician Unavailable NANCY Attending Clinician Unavailable MARIA ELENA GARCIA Attending Clinician Unavailable Mallory JANSEN Attending Clinician Unavailable Jim Valverde Attending Clinician Singer HIDALGO Attending Clinician Ronald LIRA Attending Clinician Laureano Best MD Attending Clinician LIZA BARTH Attending Clinician Unavailable KOREY Attending Clinician Unavailable JOSÉ Attending Clinician Unavailable Deshawn CAMPOS Attending Clinician Unavailable JOSÉ Admitting Clinician Unavailable Payers Payer Name Policy Policy Number Effective Expiration Source Type Date Date MEDICARE PART A AND B [id number] 2006 00:00:00 [place]ICAID [place] [id number] 2016 TRADITIONAL STAR PLUS 00:00:00 SSI MEDICAREMEDICARE PART xxxxxxxxxxx 2006 Shaun Middleton AND 00:00:00 [place] Bxxxxxxxxxxx3- NELLIE SellersMedicare [facility] MEDICAIDUNITEDHC xxxxxxxxx 2018 [place] STAR+ 00:00:00 [place] [id number]- Chaim [employer] [id number] [address] [facility] [employer] Star Plus [id number] [address] [facility] Problems Condition Condition Condition Status Onset Resolution Last Treating Co mments Source Name Details Category Date Date Treatment Clinician Date Cirrhosis Cirrhosis Disease Active [facility] 00[facility]: t & Plan: Medical 00 Diagnosis Center based on the laborator y parameter s and imaging. 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 Cirrhosis guideline s reviewed. Hepatocell Hepatocell Disease Active Last [facility] carcinoma [facility]:00: t & Plan: M edical 00 Diagnosis Center of HCC in December 2017 s/p radiofreq uency ablation. She was referred for liver transplan t evaluatio n at this time but expressed desire not to follow through.T here is no evidence of residual tumor on recent imaging. Extensive discussio n provided that liver transplan t is the only definitiv e treatment for HCC and recurrenc e is likely. She understan ds and maintains her position. Immunity Immunity Disease Active Last [facility] S t status status [facility] testing 00:00: t & Plan: Medic al 00 All Center patients with chronic liver disease should be immunized to prevent hepatitis A and hepatitis B. Previous serology indicates immunity to HAV. Recommend HBV booster which can be provided by primary care. Hepatitis Hepatitis Disease Active [facility] C [facility] 00[facility] t & Plan: Medical 00 HCV Center diagnosed in 1998 s/p partial treatment with Interfero n / Ribavirin . HCV RNA December 2017 was undetecta ble. No further intervent ion necessary . 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 HBV DNA from November 2017 undetecta ble. She may benefit from vaccinati on which can be obtained by her primary care. Hernia of Hernia of Disease Active [facility] anterior anterior [facility] abdominal abdominal 00:00: t & Plan: M edical wall wall 00 She has Center an umbilical hernia that is being evaluated for repair. She has a 34% one year mortality based on the Sebastian surgical risk score. In addition, she is Child-Pug h Class A giving her a 10% abdominal surgery colton-oper ative mortality risk. Heart Heart Disease Active Last [facility]ur murmur 2 [facility] - 00:00: t & Plan: Medical 00 Physical Center examinati on revealed an audible fixed S2 split on cardiac examinati on which may be secondary to a bundle branch block. We recommend cardiolog y consultat ion prior to procedure . Lower Lower Disease Active Last [facility] extremity extremity 2- [facility] - edema edema 00:00: t & Plan: Medical 00 [facility] javier lower extremity edema on physical examinati on. We ordered a venous doppler of the lower extremity to assess for venous thrombosi s. Previousl y on Furosemid e 20 mg daily. We write for a refill. Chest pain Chest pain Problem Active [facility] Allergies, Adverse Reactions, Alerts Allergy Allergy Status Severity Reaction(s) Onset Inactive Treating Comm ents Source Name Type Date Date Clinician Erythrom Propensi Active [facility] to 09-03 [facility] - adverse 00:00: Medical reaction 00 Center s Ketorola Propensi Active [facility] ty to 09-03 [facility] - adverse 00:00: Medical reaction 00 Center s Propoxyp Allergy Active Migraines [facility] to 01-06 [facility] - Substanc 00:00: Patient e 00 [facility] Center Azithrom Allergy Active Rash [facility] y[facility] to 01-06 [facility] - Substanc 00:00: Patient e 00 [facility] Tramadol Allergy Active Insomnia for C [facility] to days 01-06 [facility] - Substanc 00:00: Patient e 00 [facility] PROPOXYP DRUG Active MD TIWARI 5-18 Anderso N-ACETAM 00:00: n INOPHEN 00 PROPOXYP DRUG Active MD TIWARI 5-18 Anderso N-ACETAM 00:00: n INOPHEN 00 Azithrom Propensi Active Rash, Other [facility] ycin ty to (See 08-08 [facility] - adverse Comments) 00:00: Medica l reaction 00 Center s Tramadol Propensi Active Other (See Other [facility] ty to Comments) 08-08 reaction( [facility] - adverse 00:00: s): Medical reaction 00 Insomnia Center s for daysUnabl e to sleep Toradol Adverse Active Info Not [facility] Reaction Available [facility] Zithroma Adverse Active Info Not [facility] t x Reaction Available [facility] Tramadol Adverse Active Info Not [facility] t HCl Reaction Available [facility] Erythrom Adverse Active Info Not [facility] t ycin Reaction Available [facility] Demerol Adverse Active Info Not [facility] Reaction Available [facility] Darvocet Adverse Active Info Not [facility] t -N 100 Reaction Available [facility] Azithrom Adverse Active Info Not [facility] t ycin Reaction Available [facility] Social History Social Habit Start Date Stop Date Quantity Comments Source History of tobacco Cigarette Smoker [facility] - use [facility] History [facility] - Alcohol Std Drinks [facility] History [facility] - Alcohol Binge Medical [facility] ter Sex Assigned At [facility] Alcohol intake 2019-06-08 2019-06-08 Lifetime Chiang 00:00:00 00:00:00 non-drinker [employer] (finding) Cigarettes smoked 2018-09-03 2018-09-03 [facility] - current (pack per 00:00:00 00:00:00 [facility] Center day) - Reported Cigarette 2018-09-03 2018-09-03 [facility] - pack-years 00:00:00 00:00:00 [facility] Center History SDOH 2018-09-03 2018-09-03 [address] [facility] - Alcohol Frequency 00:00:00 00:00:00 [facility] Center Smoking Status Start Date Stop Date Source Current every day smoker 2018-09-03 00:00:00 [facility] Medications Ordered Filled Start Stop Current Ordering Indication Dosage Frequency Signature Comments Components Source Medication Medication Date Date Medication? Clinician (SIG) Name Name Lactulose Lactulose Yes Corey [address] 1-20 [facility] - 00[facility] Valsartan Valsartan Yes Corey [address] 1-20 [facility] - 00:[facility] insulin NPH Yes 35U Inject [address] 100 unit/mL 2-21 Units [facility] - (3 mL) InPn 13:37: subcutaneo Medical 55 usly 2 Center (two) times daily before meals NOVOLIN . methadone Yes 100mg QD Take [address] HCl 2-21 mg by [facility]ukes - (METHADONE 13:33: mouth Medica l ORAL) 34 daily. Center insulin Yes 30U Inject 30 [facility] t lispro 2-21 Units [facility] - (HUMALOG) 13:33: subcutaneo Me dical 100 unit/mL 34 usly 3 Center injection (three) times daily before meals. sertraline Yes 100mg QD Take [address] (ZOLOFT) 2-21 mg by [facility] - 100 MG 13:33: mouth Medical tablet 33 daily. Center metFORMIN Yes 500mg Take [address] [facility] (GLUCOPHAGE 2-21 mg by [facility]ukes - ) 500 MG 13:33: mouth 2 Medica l tablet 33 (two) Center times daily with breakfast and dinner. furosemide 2019- No Lower 20mg QD Take [address] (LASIX) 20 2-21 02-21 extremity tablet (20 [facility] - MG tablet 00:00: 23:59 edema mg total) M edical 00 :00 by mouth Center daily. Quetiapine Quetiapine Yes Corey not [facility] Fumarate Fumarate [facility] defined [facility] Carvedilol Carvedilol Yes Corey not [facility] defined [facility] Furosemide Furosemide Yes Corey not [facility] defined [facility] NovoLog Mix NovoLog Mix Yes Corey not [facility] 70/30 70/30 Leonard defined [facility] - Flexpen Flexpen [facility] Alprazolam Alprazolam Yes .[address] [facility] (Xanax) (Xanax) Day [facility] - 0.25 Mg 0.25 Mg Patient Tablet Tablet s Medical Center Hydrocodone Hydrocodone Yes [address] Bit/Acetami Bit/Acetami Hours as [facility] - nophen nophen needed for Patie nt ([place] [facility] [facility] 10-325 10-325 Medical Tablet) 1 Tablet) 1 Cente r Each Tablet Each Tablet Insulin Insulin Yes 35 Every 12 [facility] Detemir Detemir Hours [facility] - (Levemir) (Levemir) Patie nt 100 Unit/1 100 Unit/1 s Ml Vial Ml Vial Medical Center Quetiapine Quetiapine Yes [address] Fumarate Fumarate [facility]ukes - (Seroquel) (Seroquel) Pat ient 25 Mg 25 Mg s Tablet Tablet Medical Center Insulin Insulin 2018- No [facility] Aspart Aspart 10-30 [facility] - (Novolog (Novolog 00:00 Patien t Mix 70-30 Mix 70-30 :00 s Vial) 100 Vial) 100 Medic al Units/Ml Units/Ml Center Ml, Unknown Ml, Unknown Dose Dose Insulin Insulin 2018- No [facility] Glargine Glargine 10-30 [facility] - (Lantus) (Lantus) 00:00 Patien t 100 100 :00 s Units/Ml Units/Ml Medical Ml, Unknown Ml, Unknown C enter Dose Dose Trazodone Trazodone 2018- No Daily [facility] Hcl 50 Mg Hcl 50 Mg 10-30 Luke s - Tablet, Tablet, 00:00 Patient Unknown Unknown :00 s Dose Oral Dose Oral Med [facility] Center Procedures Procedure Date / Time Performed Performing Clinician [facility] e Computed tomography of 2017-10-30 00:00:00 ACACIA KUMAR [facility] without contrast Patients Medical Center Plan of Care Planned Activity Planned Date Details Comments Source Future Scheduled 2020-02-12 INFLUENZA VACCINE [place] [facility] Test 00:00:00 [code = INFLUENZA VACCINE] Future Scheduled 2011 BREAST CANCER [facility] thodist Test 00:00:00 SCREENING [code = BREAST CANCER SCREENING] Future Scheduled 2011 COLONOSCOPY SCREENING natacha [facility] Test 00:00:00 [code = COLONOSCOPY SCREENING] Future Scheduled 2011 SHINGLES VACCINES [place] Test 00:00:00 (#1) [code = SHINGLES VACCINES (#1)] Future Scheduled 1982 Screening for [place] thodist Test 00:00:00 malignant neoplasm of cervix (procedure) [code = 722592693] Future Scheduled 1971 DIABETIC FOOT EXAM [place] [facility] Test 00:00:00 [code = DIABETIC FOOT EXAM] Future Scheduled 1961 DIABETIC RETINAL EYE Breanna ston [facility] Test 00:00:00 EXAM [code = DIABETIC RETINAL EYE EXAM] Encounters Start End Encounter Admission Attending Care Care Encounter Source Date/Time Date/Time Type Type Clinicians Facility Department ID 2020-01-04 2020-01-04 Outpatient FADIA CRUZJIM MDA [id number] 00:00:00 00:00:00 YUN perez 2020-01-03 2020-01-03 Outpatient FADIA JIM GARCIA MDA [id number] 00:00:00 00:00:00 RICKIE perez 2020-01-03 2020-01-03 Outpatient FADIA INDERJITJIM MDA [id number] 00:00:00 00:00:00 GILBERTO perez 2020-01-01 2020-01-01 Emergency JIM MDA [id number] 08:14:08 08:14:08 Brenden perez 2019-12-15 2019-12-16 Emergency Oscar Rdz [facility] [id number] 19:10:30 01:03:00 Jim Ortiz [id number] [place] [id number] [place] [id number] 2019-11-30 2019-11-30 Emergency Singer [facility] [id number] 12:20:39 14:51:00 Vipul Ortiz [id number] [place] [id number] [place] [id number] 2019-11-17 2019-11-17 Transition Lazara Cardenas [id number] 00:00:00 00:00:00 of Care Ysa Espinosa [id number] [place] [id number] 2019-08-04 2019-08-04 [place] [facility] [id number] 13:42:00 13:42:00 t [facility] - [facility] ent [facility] 2019-08-02 2019-08-02 Outpatient Shelley Aguilera [id number] 08:30:00 08:30:00 t [facility] - and [facility] ent Clinics 2017-11-17 2017-11-17 Outpatient FADIA NAIR MDA [facility] [id number] 00:00:00 00:00:00 VIKASH [facility] perez 2017-10-30 2017-10-31 Discharged ER ACACIA KUMAR [facility] A[id number] [facility] 01:06:00 13:30:00 Inpatient 07 [facility] - (obs) [facility] 2017-05-23 2017-05-24 [facility] [id number] 19:37:00 01:16:00 Emergency 41 [place] - Room Patient [facility] 2017-05-19 2017-05-20 [facility] [id number] 17:55:00 02:48:00 Emergency 74 [place] - Room Patient [facility] 2017-04-18 2017-04-18 Registered ER CAMPOS [facility] A[id number] [facility] 01:09:00 01:09:00 Emergency JEF 56 [place] - Room Patient [facility] 2017-01-06 2017-01-06 [facility] [id number] 12:49:00 19:28:00 Emergency 03 [place] - Room Patient [facility] Results Test Description Test Time Test Comments Results Result Comments Source ALPHA FETOPROTEIN (AFP), TUMOR MARKER 2018-09-03 16:30:00 Test Item Value Reference Range Interpretation Comme nts ALPHA-FETOPROTEIN (BEAKER) (test code = 1094) 10.9 ng/mL <10.0 H HEPATIC FUNCTION [id number] 16:13:00 Test Item Value Reference Range Interpretation Comments TOTAL PROTEIN (BEAKER) (test code = 7.2 gm/dL 6.0-8.3 770) ALBUMIN (BEAKER) (test code = 1145) 3.5 g/dL 3.5-5.0 BILIRUBIN TOTAL (BEAKER) (test code 0.8 mg/dL 0.2-1.2 = 377) BILIRUBIN DIRECT (BEAKER) (test 0.4 mg/dL 0.1-0.5 code = 706) ALKALINE PHOSPHATASE (BEAKER) (test 107 U/L 40-150 code = 346) AST (SGOT) (BEAKER) (test code = 31 U/L 5-34 353) ALT (SGPT) (BEAKER) (test code = 15 U/L 6-55 347) BASIC METABOLIC [id number] 16:13:00 Test Item Value Reference Range Interpretation Comments SODIUM (BEAKER) 138 meq/L 136-145 (test code = 381) POTASSIUM (BEAKER) 3.8 meq/L 3.5-5.1 (test code = 379) CHLORIDE (BEAKER) 103 meq/L 98-107 (test code = 382) CO2 (BEAKER) (test 27 meq/L 22-29 code = 355) BLOOD UREA NITROGEN 7 mg/dL 7-21 (BEAKER) (test code = 354) CREATININE (BEAKER) 0.78 mg/dL 0.57-1.25 (test code = 358) GLUCOSE RANDOM 226 mg/dL 70-105 H (BEAKER) (test code = 652) CALCIUM (BEAKER) 9.2 mg/dL 8.4-10.2 (test code = 697) EGFR (BEAKER) (test 76 mL/min/1.73 ESTIMA YOGESH GFR IS code = 1092) sq m NOT ACCURATE CREATININE CLEARANCE IN PREDICTING GLOMERULAR FILTRATION RATE . ESTIMATED GFR I S NOT APPLICABLE FOR DIALYSIS PATIEN TS. PROTHROMBIN [id number] 16:05:00 Test Item Value Reference Range Interpretation Comments PROTIME (BEAKER) (test code = 14.9 seconds 11.7-14.7 H 759) INR (BEAKER) (test code = 370) 1.2 <=5.9 RECOMMENDED COUMADIN/WARFARIN INR THERAPY RANGESSTANDARD DOSE: 2.0 - 3.0 Includes: PROPHYLAXIS forvenous thrombosis, systemic embolization; TREATMENT for venous thrombosis and/or pulmonary embolus.HIGH RISK: Target INR is 2.5-3.5 for patients with mechanical heart valves.CBC W/PLT COUNT & AUTO DIFFERENTIAL 2018-09-03 15:57:00 Test Item Value Reference Range Interpretation Comments WHITE BLOOD CELL COUNT (BEAKER) 3.3 K/ L 3.5-10.5 L (test code = 775) RED BLOOD CELL COUNT (BEAKER) 3.88 M/ L 3.93-5.22 L (test code = 761) HEMOGLOBIN (BEAKER) (test code = 10.4 GM/DL 11.2-15.7 L 410) HEMATOCRIT (BEAKER) (test code = 34.3 % 34.1-44.9 411) MEAN CORPUSCULAR VOLUME (BEAKER) 88.4 fL 79.4-94.8 (test code = 753) MEAN CORPUSCULAR HEMOGLOBIN 26.8 pg 25.6-32.2 (BEAKER) (test code = 751) MEAN CORPUSCULAR HEMOGLOBIN CONC 30.3 GM/DL 32.2-35.5 L (BEAKER) (test code = 752) RED CELL DISTRIBUTION WIDTH 17.0 % 11.7-14.4 H (BEAKER) (test code = 412) PLATELET COUNT (BEAKER) (test code 42 K/CU MM 150-450 L = 756) MEAN PLATELET VOLUME (BEAKER) 10.6 fL 9.4-12.3 (test code = 754) NUCLEATED RED BLOOD CELLS (BEAKER) 0 /100 WBC 0-0 (test code = 413) NEUTROPHILS RELATIVE PERCENT 68 % (BEAKER) (test code = 429) LYMPHOCYTES RELATIVE PERCENT 25 % (BEAKER) (test code = 430) MONOCYTES RELATIVE PERCENT 7 % (BEAKER) (test code = 431) EOSINOPHILS RELATIVE PERCENT 1 % (BEAKER) (test code = 432) BASOPHILS RELATIVE PERCENT 0 % (BEAKER) (test code = 437) NEUTROPHILS ABSOLUTE COUNT 2.21 K/ L 1.56-6.13 (BEAKER) (test code = 670) LYMPHOCYTES ABSOLUTE COUNT 0.80 K/ L 1.18-3.74 L (BEAKER) (test code = 414) MONOCYTES ABSOLUTE COUNT (BEAKER) 0.22 K/ L 0.24-0.36 L (test code = 415) EOSINOPHILS ABSOLUTE COUNT 0.03 K/ L 0.04-0.36 L (BEAKER) (test code = 416) BASOPHILS ABSOLUTE COUNT (BEAKER) 0.01 K/ L 0.01-0.08 (test code = 417) IMMATURE GRANULOCYTES-RELATIVE 0 % 0-1 PERCENT (BEAKER) (test code = 2801) Bedside [id number] 11:44:00 Test Item Value Reference Range Interpretation Comments Bedside Glucose (test code = 25507-5) 310 70-120 H Meter ID: [id number] [facility] 2017-10-30 19:51:00 Test Item Value Reference Range Interpretation Comments Creatine Kinase MB (test code = 0.80 0-5.0 10167-5) [facility] [id number] 19:51:00 Test Item Value Reference Range Interpretation Comments Troponin I (test code = GYF4296) -0.001 0-0.300 [facility]entonCreatine [id number] 19:44:00 Test Item Value Reference Range Interpretation Comments Creatine Kinase (test code = 2157-6) 35 29-168 [facility]entonVitamin B12 [id number] 10:03:00 Test Item Value Reference Range Interpretation Comments Vitamin B12 Level (test code = 48291-4) 789 213-816 [facility]entonFolate2018-04-19 10:03:00 Test Item Value Reference Range Interpretation Comments Folate (test code = 2284-8) 8.8 7.0-15.4 [facility]entonThyroid Stimulating Hormone (TSH) 2017-10-30 09:51:00 Test Item Value Reference Range Interpretation Comments Thyroid Stimulating Hormone (TSH) (test 2.053 0.350-4.940 code = 51260-3) [facility]entonBlood [id number] 20:02:00 Test Item Value Reference Range Interpretation Comments Blood Culture (test NO GROWTH AFTER 5 code = 61944985) DAYS, FINAL REPORT [facility] [id number] 20:02:00 Test Item Value Reference Range Interpretation Comments Blood Culture (test NO GROWTH AFTER 5 code = 52879693) DAYS, FINAL REPORT [facility] [id number] 00:57:00 Test Item Value Reference Range Interpretation Comments Sodium Level (test code = 2951-2) 139 136-145 [facility]entonPotassium [id number] 00:57:00 Test Item Value Reference Range Interpretation Comments Potassium Level (test code = 2823-3) 2.9 3.5-5.1 LL Results called to [CORINE RN/ER] at 0053 on 05/24/17 by Anny Christensen. RB [place]. [facility]entonChloride [id number] 00:57:00 Test Item Value Reference Range Interpretation Comments Chloride Level (test code = 2075-0) 109 98-107 H [facility]entonCarbon Dioxide [id number] 00:57:00 Test Item Value Reference Range Interpretation Comments Carbon Dioxide Level (test code = 20 22-29 L 2027-9) [facility]entonAnion [id number] 00:57:00 Test Item Value Reference Range Interpretation Comments Anion Gap (test code = 29603-2) 12.9 8-16 [facility]entonBlood Urea [id number] 00:57:00 Test Item Value Reference Range Interpretation Comments Blood Urea Nitrogen (test code = 6 7-26 L 3094-0) [facility]entonCreatinine2017-11-11 00:57:00 Test Item Value Reference Range Interpretation Comments Creatinine (test code = 2160-0) 0.67 0.57-1.11 [facility]entonBUN/Creatinine [id number] 00:57:00 Test Item Value Reference Range Interpretation Comments BUN/Creatinine Ratio (test code = 9 6-25 3097-3) [facility] DentonEstimat Glomerular Filtration Rate 2017-05-24 00:57:00 Test Item Value Reference Range Interpretation Comments Estimat Glomerular Filtration Rate 60- >60 (test code = 99113-4) Ranges were taken from the National Kidney Disease Education Program and the National Kidney Foundation literature.Reference ranges:60 or greater: Fxxzwf51- 59 (for 3 consecutive months): Chronic kidneydisease 15 or less: Kidney failure [facility]entonGlucose [id number] 00:57:00 Test Item Value Reference Range Interpretation Comments Glucose Level (test code = LTN3846) 272 74-118 H [facility]entonCalcium [id number] 00:57:00 Test Item Value Reference Range Interpretation Comments Calcium Level (test code = 35339-3) 8.1 8.4-10.2 L [facility]man[facility] [id number] 00:57:00 Test Item Value Reference Range Interpretation Comments Sodium Level (test code = 2951-2) 139 136-145 [facility]Potassium [id number] 00:57:00 Test Item Value Reference Range Interpretation Comments Potassium Level (test code = 2823-3) 2.9 3.5-5.1 LL Results called to [CORINE RN/ER] at 0053 on 05/24/17 by Anny Christensen. RB [place]. [facility]entonChloride [id number] 00:57:00 Test Item Value Reference Range Interpretation Comments Chloride Level (test code = 2075-0) 109 98-107 H [facility]entonCarbon Dioxide [id number] 00:57:00 Test Item Value Reference Range Interpretation Comments Carbon Dioxide Level (test code = 20 22-29 L 8-9) [facility]entonAnion [id number] 00:57:00 Test Item Value Reference Range Interpretation Comments Anion Gap (test code = 38900-6) 12.9 8-16 [facility] Urea [id number] 00:57:00 Test Item Value Reference Range Interpretation Comments Blood Urea Nitrogen (test code = 6 7-26 L 3094-0) [facility]entonCreatinine2017-11-11 00:57:00 Test Item Value Reference Range Interpretation Comments Creatinine (test code = 2160-0) 0.67 0.57-1.11 [facility]entonBUN/Creatinine [id number] 00:57:00 Test Item Value Reference Range Interpretation Comments BUN/Creatinine Ratio (test code = 9 6-25 3097-3) [facility]entonEstimat Glomerular Filtration Rate 2017-05-24 00:57:00 Test Item Value Reference Range Interpretation Comments Estimat Glomerular Filtration Rate 60- >60 (test code = 53752-9) Ranges were taken from the National Kidney Disease Education Program and the National Kidney Foundation literature.Reference ranges:60 or greater: Dwboms99- 59 (for 3 consecutive months): Chronic kidneydisease 15 or less: Kidney failure [facility]entonGlucose [id number] 00:57:00 Test Item Value Reference Range Interpretation Comments Glucose Level (test code = FFD4586) 272 74-118 H [facility]entonCalcium [id number] 00:57:00 Test Item Value Reference Range Interpretation Comments Calcium Level (test code = 34164-7) 8.1 8.4-10.2 L [facility] [id number] 21:06:00 Test Item Value Reference Range Interpretation Comments Total Bilirubin (test code = 1975-2) 0.6 0.2-1.2 [facility] DentonAspartate Amino Transf (AST/SGOT) 2017-05-23 21:06:00 Test Item Value Reference Range Interpretation Comments Aspartate Amino Transf (AST/SGOT) (test 50 5-34 H code = Aspartate Amino Transf (AST/SGOT)) [facility] DentonAlanine Aminotransferase (ALT/SGPT) 2017-05-23 21:06:00 Test Item Value Reference Range Interpretation Comments Alanine Aminotransferase (ALT/SGPT) 46 0-55 (test code = 1742-6) [facility] Ebkqifr1994-98-45 21:06:00 Test Item Value Reference Range Interpretation Comments Total Protein (test code = 2885-2) 7.3 6.5-8.1 [facility]2017-[facility]-10 21:06:00 Test Item Value Reference Range Interpretation Comments Albumin (test code = 1751-7) 3.1 3.5-5.0 L [facility]Globulin2017-11-10 21:06:00 Test Item Value Reference Range Interpretation Comments Globulin (test code = 01702-9) 4.2 2.3-3.5 H [facility]Album[facility]/Globulin Tspqk9154-66-54 21:06:00 Test Item Value Reference Range Interpretation Comments Albumin/Globulin Ratio (test code = 0.7 0.8-2.0 L 1759-0) [facility]Alk[facility] Xhqvwxhwoov1772-84-90 21:06:00 Test Item Value Reference Range Interpretation Comments Alkaline Phosphatase (test code = 196 40-150 H 6768-6) [facility] Qiotbtitg7792-37-35 21:06:00 Test Item Value Reference Range Interpretation Comments Total Bilirubin (test code = 1975-2) 0.6 0.2-1.2 [facility]entonAspartate Amino Transf (AST/SGOT) 2017-05-23 21:06:00 Test Item Value Reference Range Interpretation Comments Aspartate Amino Transf (AST/SGOT) (test 50 5-34 H code = Aspartate Amino Transf (AST/SGOT)) [facility]Al[facility] Aminotransferase (ALT/SGPT) 2017-05-23 21:06:00 Test Item Value Reference Range Interpretation Comments Alanine Aminotransferase (ALT/SGPT) 46 0-55 (test code = 1742-6) [facility] Sawfnoq9394-21-67 21:06:00 Test Item Value Reference Range Interpretation Comments Total Protein (test code = 2885-2) 7.3 6.5-8.1 [facility]2017-11-10 21:06:00 Test Item Value Reference Range Interpretation Comments Albumin (test code = 1751-7) 3.1 3.5-5.0 L [facility]Gl[facility]ulin2017-11-10 21:06:00 Test Item Value Reference Range Interpretation Comments Globulin (test code = 23899-4) 4.2 2.3-3.5 H [facility]Album[facility]/Globulin Tlszh1527-69-69 21:06:00 Test Item Value Reference Range Interpretation Comments Albumin/Globulin Ratio (test code = 0.7 0.8-2.0 L 1759-0) [facility]Alkaline Vngexrwenvy0349-98-06 21:06:00 Test Item Value Reference Range Interpretation Comments Alkaline Phosphatase (test code = 196 40-150 H 6768-6) [facility]White Blood Hqsoy3425-95-44 20:53:00 Test Item Value Reference Range Interpretation Comments White Blood Count (test code = 6690-2) 6.48 4.8-10.8 [facility] Blood Dkixl3718-29-50 20:53:00 Test Item Value Reference Range Interpretation Comments Red Blood Count (test code = 789-8) 4.15 3.6-5.1 [facility]Hemoglobin2017-11-10 20:53:00 Test Item Value Reference Range Interpretation Comments Hemoglobin (test code = 62199-9) 12.4 12.0-16.0 [facility]Hematocrit2017-11-10 20:53:00 Test Item Value Reference Range Interpretation Comments Hematocrit (test code = 4544-3) 36.8 34.2-44.1 [facility]Mean Corpuscular Topdss4201-14-11 20:53:00 Test Item Value Reference Range Interpretation Comments Mean Corpuscular Volume (test code = 88.7 81-99 787-2) [facility] Corpuscular Hnxooghmlw2352-44-09 20:53:00 Test Item Value Reference Range Interpretation Comments Mean Corpuscular Hemoglobin (test code 29.9 28-32 = 785-6) [facility] Corpuscular Hemoglobin Concent 2017-05-23 20:53:00 Test Item Value Reference Range Interpretation Comments Mean Corpuscular Hemoglobin Concent 33.7 31-35 (test code = 786-4) [facility]enton[facility] Cell Distribution Ojhll2643-96-62 20:53:00 Test Item Value Reference Range Interpretation Comments Red Cell Distribution Width (test code 14.0 11.7-14.4 = 58791-2) [facility]Platelet Xjlgb2087-00-52 20:53:00 Test Item Value Reference Range Interpretation Comments Platelet Count (test code = 777-3) 54 140-360 L [facility]Neutrophils (%) (Auto)2017-05-23 20:53:00 Test Item Value Reference Range Interpretation Comments Neutrophils (%) (Auto) (test code = 72.3 38.7-80.0 37884-4) [facility]entonLymphocytes (%) (Auto)2017-05-23 20:53:00 Test Item Value Reference Range Interpretation Comments Lymphocytes (%) (Auto) (test code = 21.1 18.0-39.1 736-9) [facility]Monocytes (%) (Auto)2017-05-23 20:53:00 Test Item Value Reference Range Interpretation Comments Monocytes (%) (Auto) (test code = 5.1 4.4-11.3 5905-5) [facility]Eosinophils (%) (Auto)2017-05-23 20:53:00 Test Item Value Reference Range Interpretation Comments Eosinophils (%) (Auto) (test code = 0.9 0.0-6.0 713-8) [facility]Basophils (%) (Auto)2017-05-23 20:53:00 Test Item Value Reference Range Interpretation Comments Basophils (%) (Auto) (test code = 0.3 0.0-1.0 706-2) [facility]entonIM GRANULOCYTES %2017-05-23 20:53:00 Test Item Value Reference Range Interpretation Comments IM GRANULOCYTES % (test code = IM 0.3 0.0-1.0 GRANULOCYTES %) [facility]Neutrophils # (Auto)2017-05-23 20:53:00 Test Item Value Reference Range Interpretation Comments Neutrophils # (Auto) (test code = 4.7 2.1-6.9 751-8) [facility]entonLymphocytes # (Auto)2017-05-23 20:53:00 Test Item Value Reference Range Interpretation Comments Lymphocytes # (Auto) (test code = 1.4 1.0-3.2 72477-6) [facility]Monocytes # (Auto)2017-05-23 20:53:00 Test Item Value Reference Range Interpretation Comments Monocytes # (Auto) (test code = 742-7) 0.3 0.2-0.8 [facility]Eosinophils # (Auto)2017-05-23 20:53:00 Test Item Value Reference Range Interpretation Comments Eosinophils # (Auto) (test code = 0.1 0.0-0.4 711-2) [facility]ophils # (Auto)2017-05-23 20:53:00 Test Item Value Reference Range Interpretation Comments Basophils # (Auto) (test code = 704-7) 0.0 0.0-0.1 [facility]Absolute Immature Granulocyte (auto 2017-05-23 20:53:00 Test Item Value Reference Range Interpretation Comments Absolute Immature Granulocyte (auto 0.02 0-0.1 (test code = Absolute Immature Granulocyte (auto) [facility]White Blood Gbntd6569-97-37 20:53:00 Test Item Value Reference Range Interpretation Comments White Blood Count (test code = 6690-2) 6.48 4.8-10.8 [facility] Blood Nxopz2764-04-84 20:53:00 Test Item Value Reference Range Interpretation Comments Red Blood Count (test code = 789-8) 4.15 3.6-5.1 [facility]Hemoglobin2017-11-10 20:53:00 Test Item Value Reference Range Interpretation Comments Hemoglobin (test code = 96008-2) 12.4 12.0-16.0 [facility]entonHematocrit2017-11-10 20:53:00 Test Item Value Reference Range Interpretation Comments Hematocrit (test code = 4544-3) 36.8 34.2-44.1 [facility] Corpuscular Adlbji8635-02-60 20:53:00 Test Item Value Reference Range Interpretation Comments Mean Corpuscular Volume (test code = 88.7 81-99 787-2) [facility] Corpuscular Oqbodlxtlu2652-75-10 20:53:00 Test Item Value Reference Range Interpretation Comments Mean Corpuscular Hemoglobin (test code 29.9 28-32 = 785-6) [facility] Corpuscular Hemoglobin Concent 2017-05-23 20:53:00 Test Item Value Reference Range Interpretation Comments Mean Corpuscular Hemoglobin Concent 33.7 31-35 (test code = 786-4) [facility]entonRed Cell Distribution Mqjih7501-95-82 20:53:00 Test Item Value Reference Range Interpretation Comments Red Cell Distribution Width (test code 14.0 11.7-14.4 = 98694-7) [facility]entonPlatelet Donfq1437-37-88 20:53:00 Test Item Value Reference Range Interpretation Comments Platelet Count (test code = 777-3) 54 140-360 L [facility]entonNeutrophils (%) (Auto)2017-05-23 20:53:00 Test Item Value Reference Range Interpretation Comments Neutrophils (%) (Auto) (test code = 72.3 38.7-80.0 49942-9) [facility]entonLymphocytes (%) (Auto)2017-05-23 20:53:00 Test Item Value Reference Range Interpretation Comments Lymphocytes (%) (Auto) (test code = 21.1 18.0-39.1 736-9) [facility]entonMonocytes (%) (Auto)2017-05-23 20:53:00 Test Item Value Reference Range Interpretation Comments Monocytes (%) (Auto) (test code = 5.1 4.4-11.3 5905-5) [facility]Eosinophils (%) (Auto)2017-05-23 20:53:00 Test Item Value Reference Range Interpretation Comments Eosinophils (%) (Auto) (test code = 0.9 0.0-6.0 713-8) [facility]Basophils (%) (Auto)2017-05-23 20:53:00 Test Item Value Reference Range Interpretation Comments Basophils (%) (Auto) (test code = 0.3 0.0-1.0 706-2) [facility]entonIM GRANULOCYTES %2017-05-23 20:53:00 Test Item Value Reference Range Interpretation Comments IM GRANULOCYTES % (test code = IM 0.3 0.0-1.0 GRANULOCYTES %) [facility]Neutrophils # (Auto)2017-05-23 20:53:00 Test Item Value Reference Range Interpretation Comments Neutrophils # (Auto) (test code = 4.7 2.1-6.9 751-8) [facility]entonLymphocytes # (Auto)2017-05-23 20:53:00 Test Item Value Reference Range Interpretation Comments Lymphocytes # (Auto) (test code = 1.4 1.0-3.2 38636-5) [facility]Monocytes # (Auto)2017-05-23 20:53:00 Test Item Value Reference Range Interpretation Comments Monocytes # (Auto) (test code = 742-7) 0.3 0.2-0.8 [facility]Eosinophils # (Auto)2017-05-23 20:53:00 Test Item Value Reference Range Interpretation Comments Eosinophils # (Auto) (test code = 0.1 0.0-0.4 711-2) [facility]Basophils # (Auto)2017-05-23 20:53:00 Test Item Value Reference Range Interpretation Comments Basophils # (Auto) (test code = 704-7) 0.0 0.0-0.1 [facility]Absolute Immature Granulocyte (auto 2017-05-23 20:53:00 Test Item Value Reference Range Interpretation Comments Absolute Immature Granulocyte (auto 0.02 0-0.1 (test code = Absolute Immature Granulocyte (auto) [facility]entonBedside Dfyctrq0779-75-18 02:22:00 Test Item Value Reference Range Interpretation Comments Bedside Glucose (test code = 11277-9) 337 70-120 H Meter ID: [id number] Health DentonCreatine Kinase MB 2017-05-19 20:46:00 Test Item Value Reference Range Interpretation Comments Creatine Kinase MB (test code = 2.30 0.00-5.00 03959-4) [facility]entonTroponin R8595-84-92 20:46:00 Test Item Value Reference Range Interpretation Comments Troponin I (test code = AOX2844) 0.007 0-0.300 [facility]entonMagnesium Uxteh4180-49-02 20:42:00 Test Item Value Reference Range Interpretation Comments Magnesium Level (test code = 25949-5) 1.7 1.3-2.1 [facility]entonCreatine Helcqc0198-79-98 20:42:00 Test Item Value Reference Range Interpretation Comments Creatine Kinase (test code = 2157-6) 81 29-168 [facility]entonMagnesium Shrxr5106-05-22 20:42:00 Test Item Value Reference Range Interpretation Comments Magnesium Level (test code = 94984-9) 1.7 1.3-2.1 [facility]entonProthrombin Mlak6613-52-19 20:34:00 Test Item Value Reference Range Interpretation Comments Prothrombin Time (test code = 5902-2) 12.9 11.9-14.5 [facility]entonProthromb Time International Ratio 2017-05-19 20:34:00 Test Item Value Reference Range Interpretation Comments Prothromb Time International Ratio 0.93 (test code = 6301-6) Oral Anticoagulant Therapy INR Values:1. Low Intensity Therapy 1.5 - 2.02. Moderate IntensityTherapy 2.0 - 3.03. High Intensity Therapy(1) 2.5 - 3.54. High Intensity Therapy(2) 3.0 - 4.05. Panic Value INR > 5.0[facility]entonActivated Partial Thromboplast Time 2017-05-19 20:34:00 Test Item Value Reference Range Interpretation Comments Activated Partial Thromboplast Time 27.5 23.8-35.5 (test code = 75171-5) [facility]entonProthrombin Kzbj1151-36-14 20:34:00 Test Item Value Reference Range Interpretation Comments Prothrombin Time (test code = 5902-2) 12.9 11.9-14.5 [facility]entonProthromb Time International Ratio 2017-05-19 20:34:00 Test Item Value Reference Range Interpretation Comments Prothromb Time International Ratio 0.93 (test code = 6301-6) Oral Anticoagulant Therapy INR Values:1. Low Intensity Therapy 1.5 - 2.02. Moderate IntensityTherapy 2.0 - 3.03. High Intensity Therapy(1) 2.5 - 3.54. High Intensity Therapy(2) 3.0 - 4.05. Panic Value INR > 5.0[facility]entonActivated Partial Thromboplast Time 2017-05-19 20:34:00 Test Item Value Reference Range Interpretation Comments Activated Partial Thromboplast Time 27.5 23.8-35.5 (test code = 94526-7) [facility] [id number] 20:13:00 Test Item Value Reference Range Interpretation Comments Urine WBC (test code = 5821-4) 0-5 0-5 [facility] CBC9549-71-51 20:13:00 Test Item Value Reference Range Interpretation Comments Urine RBC (test code = 82712-4) NONE 0-5 [facility] Vcrpjjlp2682-08-91 20:13:00 Test Item Value Reference Range Interpretation Comments Urine Bacteria (test code = 01631-8) FEW NONE [facility]entonU[facility] Epithelial Wtbsr0717-68-60 20:13:00 Test Item Value Reference Range Interpretation Comments Urine Epithelial Cells (test code = FEW NONE 80956-7) [facility] PGX3071-43-16 20:13:00 Test Item Value Reference Range Interpretation Comments Urine WBC (test code = 5821-4) 0-5 0-5 [facility] ZXH0542-34-73 20:13:00 Test Item Value Reference Range Interpretation Comments Urine RBC (test code = 41511-4) NONE 0-5 [facility] Ugjqfjch8561-40-71 20:13:00 Test Item Value Reference Range Interpretation Comments Urine Bacteria (test code = 06514-6) FEW NONE [facility] Epithelial Scwgc7826-53-12 20:13:00 Test Item Value Reference Range Interpretation Comments Urine Epithelial Cells (test code = FEW NONE 30507-0) [facility] Asxwd2559-06-87 19:42:00 Test Item Value Reference Range Interpretation Comments Urine Color (test code = 5778-6) STRAW YELLOW [facility] Zmswqnu6690-63-84 19:42:00 Test Item Value Reference Range Interpretation Comments Urine Clarity (test code = 37711-4) CLEAR CLEAR [facility]entonU[facility] Specific Blmlldo7257-22-05 19:42:00 Test Item Value Reference Range Interpretation Comments Urine Specific Whipple (test code = 1.005 1.010-1.025 L 5811-5) [facility]entonU[facility] yE9627-23-53 19:42:00 Test Item Value Reference Range Interpretation Comments Urine pH (test code = 10512-4) 7 5-7 [facility] Leukocyte Offkvicj8272-80-88 19:42:00 Test Item Value Reference Range Interpretation Comments Urine Leukocyte Esterase (test code NEGATIVE NEGATIVE = 5799-2) [facility] Nmsdgeo0523-69-52 19:42:00 Test Item Value Reference Range Interpretation Comments Urine Nitrite (test code = 87246-6) NEGATIVE NEGATIVE [facility] Auwsjvx0664-69-20 19:42:00 Test Item Value Reference Range Interpretation Comments Urine Protein (test code = 5804-0) NEGATIVE NEGATIVE [facility] Glucose (UA)2017-05-19 19:42:00 Test Item Value Reference Range Interpretation Comments Urine Glucose (UA) (test code = 2349-9) 3+ NEGATIVE H [facility] Aewsred3849-64-93 19:42:00 Test Item Value Reference Range Interpretation Comments Urine Ketones (test code = 42884-8) NEGATIVE NEGATIVE [facility] Cliufrivqnyu2806-19-70 19:42:00 Test Item Value Reference Range Interpretation Comments Urine Urobilinogen (test code = 1 0.2-1 88893-4) [facility] Abzimrsyc0688-68-05 19:42:00 Test Item Value Reference Range Interpretation Comments Urine Bilirubin (test code = 1978-6) NEGATIVE NEGATIVE [facility] Mdwri0855-01-53 19:42:00 Test Item Value Reference Range Interpretation Comments Urine Blood (test code = 07751-7) NEGATIVE NEGATIVE [facility] Amfno4670-92-91 19:42:00 Test Item Value Reference Range Interpretation Comments Urine Color (test code = 5778-6) STRAW YELLOW [facility]entonU[facility] Kmrdocn6266-28-38 19:42:00 Test Item Value Reference Range Interpretation Comments Urine Clarity (test code = 52063-5) CLEAR CLEAR [facility]entonU[facility] Specific Yplcbmg3827-06-41 19:42:00 Test Item Value Reference Range Interpretation Comments Urine Specific Whipple (test code = 1.005 1.010-1.025 L 5811-5) [facility]entonU[facility] pA2597-30-83 19:42:00 Test Item Value Reference Range Interpretation Comments Urine pH (test code = 95271-6) 7 5-7 [facility] Leukocyte Yzebcvga6920-70-63 19:42:00 Test Item Value Reference Range Interpretation Comments Urine Leukocyte Esterase (test code NEGATIVE NEGATIVE = 5799-2) [facility] Wrnfyyp1121-42-41 19:42:00 Test Item Value Reference Range Interpretation Comments Urine Nitrite (test code = 05337-9) NEGATIVE NEGATIVE [facility] Rxivirf9967-21-65 19:42:00 Test Item Value Reference Range Interpretation Comments Urine Protein (test code = 5804-0) NEGATIVE NEGATIVE [facility] Glucose (UA)2017-05-19 19:42:00 Test Item Value Reference Range Interpretation Comments Urine Glucose (UA) (test code = 2349-9) 3+ NEGATIVE H [facility] Dvrlfhx8287-48-51 19:42:00 Test Item Value Reference Range Interpretation Comments Urine Ketones (test code = 12544-3) NEGATIVE NEGATIVE [facility] Edmjoacxcrwr5735-46-58 19:42:00 Test Item Value Reference Range Interpretation Comments Urine Urobilinogen (test code = 1 0.2-1 66140-2) [facility] Digrcmxre7102-34-55 19:42:00 Test Item Value Reference Range Interpretation Comments Urine Bilirubin (test code = 1978-6) NEGATIVE NEGATIVE [facility] Zrjsn1503-45-96 19:42:00 Test Item Value Reference Range Interpretation Comments Urine Blood (test code = 24050-9) NEGATIVE NEGATIVE [facility]entonAmylase Ypsot1742-17-36 02:32:00 Test Item Value Reference Range Interpretation Comments Amylase Level (test code = 1798-8) 49 25-125 [facility]entonLipase2017-10-06 02:32:00 Test Item Value Reference Range Interpretation Comments Lipase (test code = 3040-3) 51 8-78 [facility]entonAmylase Tkhvo7514-33-91 02:32:00 Test Item Value Reference Range Interpretation Comments Amylase Level (test code = 1798-8) 49 25-125 [facility]entonLipase2017-10-06 02:32:00 Test Item Value Reference Range Interpretation Comments Lipase (test code = 3040-3) 51 -78 [facility]Platelet Uklxlmfc8468-08-73 17:00:00 Test Item Value Reference Range Interpretation Comments Platelet Estimate (test SLIGHTLY DECREASED code = 41474-4) [facility]entonPlatelet Morphology Vslifbh8218-74-94 17:00:00 Test Item Value Reference Range Interpretation Comments Platelet Morphology Comment (test FEW LARGE code = 55493-7) No platelet clumps seen on smearTexas Health DentonRed Cell Morphology Qapkoxf9883-49-55 17:00:00 Test Item Value Reference Range Interpretation Comments Red Cell Morphology Comment (test code NORMAL = 6742-1) [facility]entonPlatelet Oneupusr3591-77-44 17:00:00 Test Item Value Reference Range Interpretation Comments Platelet Estimate (test SLIGHTLY DECREASED code = 11866-4) [facility]entonPlatelet Morphology Wxfykkr5602-69-84 17:00:00 Test Item Value Reference Range Interpretation Comments Platelet Morphology Comment (test FEW LARGE code = 73571-2) No platelet clumps seen on smearTexas Health DentonRed Cell Morphology Snkpanh6443-81-01 17:00:00 Test Item Value Reference Range Interpretation Comments Red Cell Morphology Comment (test code NORMAL = 6742-1) [facility]entonU[facility] Hyaline Efbkz7247-54-19 14:57:00 Test Item Value Reference Range Interpretation Comments Urine Hyaline Casts (test code = 2-5 0-1 H 93895-8) [facility]entonU[facility] Wxrtg1132-79-75 14:57:00 Test Item Value Reference Range Interpretation Comments Urine Yeast (test code = 79612-7) FEW NONE H [facility]entonU[facility] Hyaline Gtvri0678-66-77 14:57:00 Test Item Value Reference Range Interpretation Comments Urine Hyaline Casts (test code = 2-5 0-1 H 25784-7) [facility]entonU[facility] Fodna2319-83-85 14:57:00 Test Item Value Reference Range Interpretation Comments Urine Yeast (test code = 88739-0) FEW NONE [facility] T[facility] ONLY [place] [address] Patient Name : GERA PALUMBO MR #: [id number] : 1960 Age/Sex: 57/F Adm Physician : ACACIA KUMAR MD Admit Date : 10/30/17 Location : [facility] Room/Bed : [place] [address] REPORT: Cardiology Report DATE OF STUDY: October 31, 2017 [place] MYOVIEW The patient had resting perfusion images after an injection of11 millicuries of technetium- 99m Myoview. Later, due to inability to exercise, [...] ventricular function, calculated ejection fraction 54%. Job#: [id number] GH cc: ACACIA KUMAR MD Signature Date Dictated By: VANNESA ANTON MD Transcribed By: SMEDS on 10/31/17 <Electronically signed by VANNESA ANTON MD><<Signature on File>>11/02/17 8944 COPY TO:CT CHEST WO [place] [address] Patient Name: GERA PALUMBO MR #: [id number] : 1960 Age/Sex: 57/F Req #: [id number] Adm Physician: ACACIA KUMAR MD Ordered by: ACACIA KUMAR MD Report #: [id number] Location: [facility] Room/Bed: [place] [address] Procedure: [id number] CT/CT CHEST WO Exam Date: 10/30/17 Exam [...] on 10/30/17 1318 COPY TO: ACACIA KUMAR MDABDKIKE ACUTE SERIES W/PA CXR [place] [address] Patient Name: GERA PALUMBO MR #: [id number] : 1960 Age/Sex: 56/F Req #: [id number] Adm Physician: Ordered by: JEF CAMPOS MD Report #: [id number] Location: ER Room/Bed: Procedure: [id number] DX/ABDOMEN ACUTE SERIES W/PA CXR Exam Date: [...] SOFT TISSUES: No acute bone findings. No abn ormal calcifications. No mass effect. Bilateral chest surgical clips. Surgical clips right upperquadrant of the abdomen. IMPRESSION: No acute thoracic abnormality. No evidence for bowel obstruction. Signed by: Dr. Theo Blanton M.D. on 04/18/2017 2:40 AM Dictated By: THEO BLANTON MD 9 Transcribed By: DONY on 04/18/17239 COPY TO: JEF CAMPOS MD
[2020-01-25] MEDS ORDERED: INSULIN -REGULAR HUMAN 50 UNIT/0.5 ML ML ONE (14:16)
[2020-01-25] MEDS ORDERED: NA CHLORIDE 0.9% 0 ML ONE (14:16)
--- OUTSIDE RECORDS SUMMARY | 2020-01-25 14:21 | XMS REPORT | Summary of Care ---
:1960 Author Organization [facility] Address [address] [place] [id number] Care Team Providers Name Role Phone Chito Barros Primary Care Provider Reason for Visit Reason Comments Transition Of Care Encounter Details Date Type Department Care Team Description 11/17/2019 Transition of Care [facility] Yas Cardenas Transition Of Care [facility]- [facility] PANKAJ [phone] Allergies Active Allergy Reactions Severity Noted Date Comments Propoxyphene N-Acetaminophen Other - See comments 02/2018 migraine Ondansetron Itching 11/09/2019 Tramadol Other - See comments 02/18/2018 Anxious Azithromycin Rash 02/18/2018 documented as of this encounter (statuses as of 11/17/2019) Medications Medication Sig Dispensed Refills Start Date End Date Status QUEtiapine (SEROQUEL) Take 350 mg by 0 Active 300 mg tablet mouth at bedtime. carvediloL 6.25 mg Take 6.25 mg by 0 Active tablet mouth 2 (two) times daily with meals. sacubitril-valsartan Take 1 tablet 0 Active (ENTRESTO) 49-51 mg by mouth 2 tablet (two) times daily. insulin aspart inject 30 Units 0 Active prot/insuln asp (NOVOLOG under the skin MIX 70-30 SC) 3 (three) times daily. potassium chloride Take 40 mEq by 0 Active (KCL-20 ORAL) mouth at bedtime. LACTULOSE ORAL Take 30 mg by 0 A ctive mouth 2 (two) times daily. furosemide (LASIX) 40 mg Take 80 mg by 0 Active tablet mouth daily. HYDROcodone-acetaminophe Take 1 tablet 0 Active n 10-325 mg tablet by mouth every 4 (four) hours as needed. methadone 5 mg tablet Take 10 mg by 0 Active mouth 3 (three) times daily. vancomycin 250 mg Take 2 capsules 22 capsule 0 11/16/2019 Active capsuleIndications: by mouth 4 Vomiting and diarrhea, (four) times Partial small bowel daily. obstruction, Colitis, Gastrointestinal hemorrhage with melena, C. difficile colitis, Hematemesis with nausea documented as of this encounter (statuses as of 11/17/2019) Active Problems Problem Noted Date Obesity (BMI 30-39.9) 11/12/2019 Hematemesis 11/10/2019 Melena 11/10/2019 Partial small bowel obstruction 11/09/2019 Hyperglycemia 07/31/2019 Cocaine dependence, continuous 10/03/2005 documented as of this encounter (statuses as of 11/17/2019) Social History Tobacco Use Types Packs/Day Years Used Date Current Every Day Smoker Smokeless Tobacco: Never Used Sex Assigned at Date Recorded Not on file Job Start Date Occupation Industry Not on file Not on file Not on file Travel History Travel Start Travel End No recent travel history available. COVID-19 Exposure Response Date Recorded In the last month, have you been in contact with No / Unsure 11/09/2019 6:20 PM CDT someone who was confirmed or suspected to have Coronavirus / COVID-19? documented as of this encounter Last Filed Vital Signs Not on filedocumented in this encounter Plan of Treatment Health Maintenance Due Date Last Done Comments HEPATITIS C (HCV) SCREEN 1960 PNEUMOCOCCAL 0-64 YEARS COMBINED SERIES (1 of - 1967 PPSV23) DTaP,Tdap,and Td Vaccines (1 - Tdap) 1972 PAP SMEAR 1982 Breast Cancer Screening (MAMMOGRAM) 2001 COLONOSCOPY 2011 Zoster Recombinant Vaccine (SHINGRIX) (1 of 2) 2011 LUNG CANCER SCREEN: Recommended for age 55-80 with 30 + 05/04/20 16 pack year history INFLUENZA VACCINE (Season Ended) 2020 documented as of this encounter Results Not on filedocumented in this encounter Insurance Payer Benefit Plan / Subscriber ID Effective Dates Phone Addre Type Group MEDICARE MEDICARE PART xxxxxxxxxxx 2006-Micheal [phone] [facility] [facility] Medicare A & B t 2 [id number] KAREN BASS [id number] [facility] MEDICAID OF xxxxxxxxx 2018-Prese [phone] [address] Medicaid [place] [id number] [place] [address] documented as of this encounter
--- OUTSIDE RECORDS SUMMARY | 2020-01-25 14:21 | XMS REPORT | Summary of Care ---
:1960 Author Organization [facility] Address [address] [place] [id number] Care Team Providers Name Role Phone Chito English Primary Care Provider Reason for Referral (Routine) Status Reason Specialty Diagnoses / Referred By Referred To Procedures Contact Contact New Request UNKNOWN PHYSICIAN Diagnoses Vomiting and diarrhea Partial small bowel obstruction Colitis Gastrointestinal hemorrhage with melena C. difficile colitis Hematemesis with nausea Irina Randi SPECIALTY Procedures Discharge Follow-Up: Specialty Service UNKNOWN PHYSICIAN SPECIALTY; As Needed DO Chela [address] [address] (Routine) Status Reason Specialty Diagnoses / Referred By Referred To Procedures Contact Contact Pending Review Diagnoses Vomiting and diarrhea Partial small bowel obstruction Colitis Gastrointestinal hemorrhage with melena C. difficile colitis Hematemesis with nausea Arevalo, Randi Papo [place], Procedures Discharge Follow-up: PCP GLORIA ENGLISH; 2 Weeks DO Gloria Dale [address] [place] [phone] [place], [place] Phone: [phone] Phone: Fax: Radiology Services (ESSIE) Status Reason Specialty Diagnoses / Referred By Referred To Procedures Contact Contact New Request Diagnostic Diagnoses Partial small bowel obstruction Arevalo, Randi Radiology Procedures XR KUB DO Chela [address] J Luis [address] [place] [address] Radiology Services (Routine) Status Reason Specialty Diagnoses / Referred By Referred To Procedures Contact Contact New Request Diagnostic Diagnoses Gastrointestinal hemorrhage with melena Arevalo, Randi Radiology Procedures XR KUB Chela, DO [address] J Luis [address] [place] [address] Radiology Services (ESSIE) Status Reason Specialty Diagnoses / Referred By Referred To Procedures Contact Contact New Request Diagnostic Diagnoses Partial small bowel obstruction Arevalo, Randi Radiology Procedures XR KUB Chela, DO [address] J Ulis [address] [place] [address] MRI/CAT Scan (STAT) Status Reason Specialty Diagnoses / Referred By Referred To Procedures Contact Contact New Request Diagnostic Diagnoses Gastrointestinal hemorrhage with melena Hematochezia Chuck Moreno, Radiology Procedures CT ANGIOGRAM ABDOMEN/PELVIS CT ANGIOGRAM ABDOMEN/PELVIS [id number] [place] [address] MRI/CAT Scan (ESSIE) Status Reason Specialty Diagnoses / Referred By Referred To Procedures Contact Contact New Request Diagnostic Diagnoses Partial small bowel obstruction Chuck Moreno, Radiology Procedures CT ABDOMEN PELVIS W CONTRAST [address] [facility] [id number] [place] [address] Radiology Services (Routine) Status Reason Specialty Diagnoses / Referred By Referred To Procedures Contact Contact New Request Diagnostic Diagnoses Fever in adult Partial small bowel obstruction Colitis Gastrointestinal hemorrhage with melena Chuck Moreno, Radiology Procedures Abdominal 1 View - To confirm nasogastric tube placement. [id number] [place], [place] [id number] Radiology Services (STAT) Status Reason Specialty Diagnoses / Referred By Referred To Procedures Contact Contact New Request Diagnostic Diagnoses Fever in adult Vincent, Radiology Procedures XR CHEST 1 VW Shinta, IMCU NURSE [address] [facility] [id number] [place] [address] MRI/CAT Scan (STAT) Status Reason Specialty Diagnoses / Referred By Referred To Procedures Contact Contact New Request Diagnostic Diagnoses Fever in adult Melena Vomiting and diarrhea Khadijah Olivares Radiology Procedures CT ABDOMEN PELVIS W CONTRAST R, EMSUGEY [address] [address] Reason for Visit Reason Comments Vomiting Weakness Auth/Cert Status Reason Specialty Diagnoses / Referred By Referred To Procedures Contact Contact Emergency Medicine Diagnoses SOB;VOMITING [facility] [address] [facility] [place] [address] Fax: Encounter Details Date Type Department Care Team Description 11/09/2019 - Hospital Medicine ([facility]) Khadijah Olivares R, EMNP [address] [id number] Partial small bowel 11/16/2019 Encounter 712 [facility] Beatriz Holm FNP [address] [id number] obstruction [place], [place] Bj Zamorano MD [address] [place] [phone] Chuck Moreno MD [address] [place] [id number] [place] [address] [phone] Randi Arevalo, [address] [place], [place] [address] Allergies Active Allergy Reactions Severity Noted Date Comments Propoxyphene N-Acetaminophen Other - See comments 02/2018 migraine Ondansetron Itching 11/09/2019 Tramadol Other - See comments 02/18/2018 Anxious Azithromycin Rash 02/18/2018 documented as of this encounter (statuses as of 11/16/2019) Medications Medication Sig Dispensed Refills Start Date [...] as of this encounter (statuses as of 11/16/2019) Active Problems Problem Noted Date Obesity (BMI 30-39.9) 11/12/2019 Hematemesis 11/10/2019 Melena 11/10/2019 Partial small bowel obstruction 11/09/2019 Hyperglycemia 07/31/2019 Cocaine dependence, continuous 10/03/2005 documented as of this encounter (statuses as of 11/16/2019) Social History Tobacco Use Types Packs/Day Years [...] of this encounter Last Filed Vital Signs Vital Sign Reading Time Taken Comments Blood Pressure 144/76 11/16/2019 7:41 AM CDT Pulse 74 11/16/2019 7:41 AM CDT Temperature 36.9 C (98.4 F) 11/16/2019 7:41 AM CDT Respiratory Rate 18 11/16/2019 7:41 AM CDT Oxygen Saturation 96% 11/16/2019 7:41 AM CDT Inhaled Oxygen Concentration - - Weight 84 kg (185 lb 3 oz) 11/12/2019 8:00 AM CDT Height 160 cm (5' 3") 11/09/2019 10:58 PM CDT Body Mass Index 32.8 11/09/2019 10:58 PM CDT documented in this encounter Discharge Instructions AppointmentsJessie Boles - 11/10/2019 8:40 AM CDTYour follow up appointment with Dr English FridayNovember 21 @ 10:[address] [place] [address] [address] [facility] [address] [phone] If you need to make changes to this appointment please call the office. AttachmentsThe following attachments cannot be sent through Care Everywhere. Clostridium Difficile Toxin (Stool) (Guamanian)documented in this encounter Progress Notes Kurtis Haddad MD - 11/15/2019 8:28 PM CDTBteresita Willow Ashby is a 59 year old female admitted for sevre C diff infection in background of chronic liver failure following with MDA; Patient also with HX opiate abuse and DMT2 appears decently controlled on 70/30 at home but was transitioned to Novolog and Lantus while inpatient. She became unresponsive overnight at 2014 reported by nursing as lasting roughly 15 minutes; When I arrived bedside patient was speaking full sentences but confused which quickly resolved. BP at that time was 200s/100s as patient had refused meds earlier. Patient denied any issues when she started talking but was scared as she stated this had never happened before. EKG normal sinus rhythm when assessed. Reported it could be 2/2 to elevated BP which she continued stating she dies not understand why she is on so many meds.Patient also requesting an insulin change due to uncontrolled BG though she has been refusing Novolog regularly while admitted. In terms of diarrhea patient reporting it has improved significantly since admission with only 3 reported BMs today though par GI report they got from patient she is having multiple BMs (nursing only reported 1 BM today). Concern patient is showing manipulative behavior at this time. Concern as she conts asking for increased opiate supplementation when she is showing no signs of withdrawal. Will order basic labs including seizure LEYVA. Will monitor closely throughout night. Malingering Pseudoseizure - BMP, Mg, Prolactin, CK, Trop Kurtis Haddad MD Internal Medicine PGY-3 [place] Team Doctor # [id number] Pager: Mihai Maldonado MD - 11/15/2019 12:38 PM CDT Medicine MOON Progress Note Date of Service: 11/15/2019 12:38, HD #: 6 CC: dark red colored stool/abdominal pain 24-Hour Events: KUB yesterday/today; normal. No SBO, no toxic megacolon Started methadone 30mg qd D4/10 PO vanc Subjective: States 3x BMs since midnight, with blood, but not as gross as prior. States she is withdrawing resulting to abdominal cramps and worsening her diarrhea *OF NOTE, per chart review, patient has had x1 BM recorded Physical Exam: Temp: [36.4 C (97.6 F)-37.1 C (98.7 F)] Pulse: [78-104] Resp: [18] BP: (127-176)/(58-101) No intake or output data in the 24 hours ending 11/15/19 1238 General: alert and oriented x 4 (person, place and date/time); no apparent distress HEENT: normocephalic atraumatic Neck: supple, no lymphadenopathy, no bruits, no JVD Lungs: clear to auscultation bilaterally Cardio: S1, S2 normal; no murmurs, rubs or gallops Abdomen: soft, TTP midepigastric- unchanged Extremities: no clubbing, cyanosis, or edema Skin: no rashes Neuro: alert and oriented x 3 Labs: reviewed Img: Reviewed Assessment and Plan: Jeannette Ashby is a 59 year old female admitted with the following hospital issues Abd pain/hematochezia/sepsis 2/2 cdiff (fulminant? Per GI) type colitis; negative CTA Partial SBO- resolved per KUB 5/2 R Liver lesionx1 3.6cm per CTAP Hx of HCV cirrhosis c/w HCC s/p ablation c/w esophageal varices s/p banding 2018 Anemia/thrombocytopenia 2/2 cirrhosis Being treated for fulminant type CDI colitis c/w hematochezia which appears to be improving, along with sx. Partial sbo also improved. BCX NGTD, UCX NG -Hgb checks q24 -tx HH >7 PRN -c/w PO VANC now -c/w PO protonix BID -GI on board; appreciate reccs; stop IV flagyl, monitor patient due to ongoing diarrhea w/ bleeding -GS signed off; no intervention on partial SBO as patient improving -adv diet PRN -Serial KUBs- stable, normal so far Hx of opioid withdrawal on home methadone *With GI permission, MICU started morphine 2mh q8hPRN only to avoid withdrawal -monitor withdrawal -PAIN service: Methadone 15mg BID -Start methadone 30mg qd -hold morphine now NICM LBBB; old since 2018 -monitor HTN -slow resumption of BP meds as tolerated -restart home lasix -consider restarting coreg and entresto tomorrow if BP/P permits Hx of breast CA s/p 2006 tx -monitor DMII -c/w SSI Hospital Care Issues: Pain control: tylenol. Prophylaxis: DVT-SCDs Stress Ulcer: pantoprazole Code Status: FULL Mihai Fletcher MD, MPH Internal Medicine PGY-3 [place] Team Physician # [id number] Pager # [phone] END OF DAILY PROGRESS NOTE Hospital Course: Jeannette Ashby is a 59 year old femalewith PMHx IDDM, HTN and cardiopathy, breast cancer treated in 2006, Hep C cirrhosis c/b HCC s/p ablation in 2017 and esophageal varices s/p banding admitted for 3 days history of hematemesis and melena. Concerning for ischemic colitis given acute abdominal pain. CT scan shows patent flow of SMA and celiac arteries per Surgery, not concerning for ischemiccolitis. Repeat CTAP r/o SBO with persistent colitis.+ c diff colitis. Started on PO and rectal Vanc as well as IV flagyl. Monitoring ongoing hematochezia, serial KUBs for pSBO progression, and ongoing PO VANC+IV flagyl for fulminant CDI c/w hematochezia. Abd remained tender so will monitor and advance diet cautiously. At floors, patient abd pain ongoing, but diarrhea with bleeding less now although patient states ongoing crampy sensation and diarrhea patient attributes now to opioid withdrawal. GI adjusted abx regimen, now on PO VANC for CDI. Pain service consulted for her extensive opioid on met hadone hx now. Methadone restarted after PAIN service has discussed case with patient's OSH pain doctor. Ongoing PO VANC for now, and monitoring diarrhea CURRENT MEDICATIONS Current Facility-Administered Medications Medication Dose Route Frequency Last Rate Last Dose insulin glargine (LANTUS U-100) injection 17 Units 0.2 Units/kg/day Subcutaneous QHS methadone (DOLOPHINE HCL) tablet 30 mg 30 mg Oral DAILY 30 mg at 11/15/19 1100 carvediloL (COREG) tablet 6.25 mg 6.25 mg Oral BID MEALS 6.25 mg at 11/15/19 0820 QUEtiapine (SEROQUEL) tablet 300 mg 300 mg Oral QHS 300 mg at 11/14/19 2107 pantoprazole (PROTONIX) EC tablet 40 mg 40 mg Oral BID 40 mg at 11/15/19 0820 Sliding Scale Insulin - Aspart (NOVOLOG) + Fsbg Testing Subcutaneous TID MEALS+HS 3 Units at11/15/19 0819 vancomycin (FIRVANQ) 50 mg/mL oral solution 500 mg 500 mg Oral QID 500 mg at 11/15/19 0820 dextrose 10% (D10W) bolus infusion 250 mL 250 mL IV Infusion PRN - SEE INSTRUCTIONS glucagon (GLUCAGEN DIAGNOSTIC KIT) injection 1 mg 1 mg Intramuscular PRN proMETHazine (PHENERGAN) 25 mg in NaCl 0.9% (NS) 50 mL piggyback 25 mg IV Piggyback Q6HPRN 25mg at 11/15/19 0941 Associated attestation - Randi Arevalo DO - 11/15/2019 2:43 PM CDTI personally examined the patient on 11/15/[address] Fletcher's resident note with the following addition(s): - Pt presented with severe C.diff infection and has been improving on vancomycin enema, oral vancomycin, and iv metronidazole. Enema and iv metronidazole are discontinued. C/w oral vancomycin and monitor for symptoms. She continues to have bloody loose bowel movement (3 within 1 hour this morning). - Opioid dependence: restart methadone today per pain service and outpatient pain physician. - Patient stated that she is going through withdrawal and her symptoms are abdominal cramping, diarrhea, and anxiety. Pt was agitated during round, threatening to leave because her pain medication has not been addressed to her "liking". - Plan of care was discussed with patient about methadone. She is in agreement with methadone 30 mg per day. I actively participated in the decision-making process. Please see the resident's note for additional details. Randi Arevalo, /PhD Chief Resident & Clinical Instructor # [id number] Ledy Lnadis, PT - 11/15/2019 12:17 PM CDTPHYSICAL THERAPY DISCHARGE NOTE Patient seen for evaluation and functional training. PT goals: all met except for stairs as she is on isolation, however, pateint demonstrates functional strength and balance and should be able to traverse stairs using railing. Refer to PT note dated 11-15-19 for patients functional status upon discharge. Please also refer to the evaluation and progress notes for further functional details, progress and recommendations along with education provided. Discharge from acute PT due to All goals met and does not require further PT. Thank you. Recommend discharge home. Ledy Landis PT, DPT, CWS p dept: [phone] Ignacio Aggarwal, SECURITIES COMPLIANCE EXAMINER - 11/15/2019 11:57 AM CDTPhysical Therapy Progress Note Recommendations Primary Discharge Plan: Same as prior living situation Equipment Recommendations: No Device PAIN none PRECAUTIONS Weight Bearing Precaution: WBAT General Precautions: Fall, surgical mask, gloves, extended contact isolation Bracing/Cast present or required: none Oxygen: none S: Patient found in bed and agreeable to working with PT. Patient stating she has been very mobile,active, and hasn't had any problems. Patient stating she Independently showered last night. O: Patient seen and instruction provided for correct and safe performance of all the following functional tasks: Bed Mobility supine <-> sit: Mod I task performed with HOB slightly elevated verbal/visual cueing provided for correct and safe performance patient able to return demo correctly with cueing and time sitting static/dynamic balance: Excellent Transfers sit <-> stand: Independent using no AD task performed from/onto bed standing static/dynamic balance: Excellent Gait No AD x 300' performed Independently patient presenting slow and steady step-through gait pattern with no LOB patient instructed in directional changes and head movements in all planes during gait trial resulting in no LOB Therapeutic Exercise sitting BLE AROM x multiple reps: AP, LAQ, knee raises provided patient with verbal and tactile cueing for correct technique provided patient with verbal HEP along with detailed instructions (visual/verbal/tactile) on how to correctly perform all exercise reps stressed the importance of compliance with performance of all exercises throughout day to help with increasing overall strength, endurance, flexibility, and ROM Stair Training: unable to attempt task as patient currently is on extended contact isolation precautions however anticipate patient will be able to go up/down stairs when/if needed as evidenced by patient's current level of function Patient Teaching Provided patient with preferred teaching of verbal and visual information on above instructions. Patient presenting readiness to learn. Patient verbalizing understanding to all discussed. Patient leftin bed and call dial provided. A: Patient progressing towards goals as expected. P: Will notify Supervising PT with patient current status. Ignacio Leonard PTA Pager #: [phone] Supervising PT Ledy Landis, PT, DPT, CWS Total Timed Tx Codes in Minutes: 25 min Total Treatment Time in Minutes: 25 min Carolyn Robertson MD - 11/15/2019 11:51 AM CDTGastroenterology and Hepatology Progress Note Date of Service: 11/15/2019 11:51 Chief Complaint: Hematochezia SUBJECTIVE/ MAJOR EVENTS: - Patient reports having multiple loose and bloody bowel movements yesterday. She had one formed bowel movement this morning with scant amount of blood. PHYSICAL EXAM: Temp: [36.4 C (97.6 F)-37.1 C (98.7 F)] Pulse: [83-104] Resp: [18] BP: (127-176)/(67-101) No intake or output data in the 24 hours ending 11/15/19 1151 General: Patient is alert and oriented x4, in no distress Cardiovascular: Regular rate and rhythm, no murmurs; no LE edema. Respiratory: Clear to auscultation bilaterally. Abdomen: distended, tender to palpation (improved compared to prior), sluggish bowel sounds LABS/IMAGING - REVIEWED CURRENT MEDICATIONS - REVIEWED ASSESSMENT/PLAN Jeannette Ashby is a 59 year old female with PMH as listed above, admitted to the hospital with abdominal pain and hematochezia, GI consulted for: Severe C.diff Colitis - The patient is presenting with acute abdominal pain followed by hematochezia, stool studies showed C.diff. She has had 4 days of antibiotics with improvement in her clinical status (pain, bleeding and tenderness), however, she still has loose bowel movements. Tolerating diet well. Plan - c/w vancomycin 500 mg QID. - Serial abdominal exams. - Daily BMP, Mg and phos, replace as needed Decompensated HCV Cirrhosis MELD 10 Chronic Hepatic Failure Etiology: HCV, treated by has not achieved SVR. Decompensated with HE, ascites and bleeding EV. Ascites: perihepatic ascites on CT scan. Low salt diet. Encephalopathy: Grade 0. Minimize narcotics, correct electrolytes. Varices: Hx of banding last year. SBP: No previous episodes HCC Surveillance: The hypodensity seen on CT is likely post-treatment changes. Surveillance imaging to be obtained on non urgent basis Labs: Check daily INR, CBC and CMP. Patient was seen and discussed with Dr. Soler. Please call with questions. GI will continue to follow. Carolyn Morales MD PGY-4 Gastroenterology and Hepatology Pager [phone] Associated attestation - Colleen Soler MD - 11/15/2019 7:27 PM CDTI have reviewed this patient's case with Dr. Morales. I have seen and examined the patient, and agree with Dr. Morales's findings and recommendations as above with the following annotations: Ms. Ashby reports that she continues to have frequent bloody bowel movements but this is not supported by nursing documentation. In discussion with primary team only 1 bowel movement was recorded overnight. Her Hb is stable. She has been insisting on narcotic pain medications for her abdominal pain symptoms. Continue oral vancomycin. Discontinue IV flagyl. Patient may be discharged after her diarrhea has demonstrated improvement. Colleen Soler MD Gastroenterology/ Transplant Hepatology Pager [phone] 11/15/2019 19:25 Silas Luna OT - 11/15/2019 10:16 AM CDT11/15/2019 1016 OCCUPATIONAL THERAPY NOTE: Consult received and chart reviewed. Attempted OT eval, however patient reports she is already mobile and does not want to participate with OT services at this time. Pt states she is nauseas and does not want to get up right now. OT educated patient on benefits of participating in OT services, howeverpatient continues to refuse eval. Will attempt again later, as time permits. WYATT Enciso Pager [phone] signed by Silas Luna OT at 11/15/2019 10:19 AM Jamaal Barahona MBBS - 11/14/2019 2:10 PM CDT GI Service Progress Note Reason for consult: hematochezia Chief Complaint: hematochezia SUBJECTIVE/Interval history: Has loose stools but attributes them to vancomycin enemas. Still has some blood in stool but has come down in amounts. Belly distended but able to tolerate clear liquid diet. CURRENT MEDICATIONS - reviewed. PHYSICAL EXAM: BP (!) 153/78 (Patient Position: Supine) | Pulse 83 | Temp 36.4 C (97.5 F) (Oral) | Resp 18 | Ht 1.6 m (5' 3") | Wt 84 kg (185 lb 3 oz) | SpO2 95% | BMI 32.80 kg/m General : awake and alert, NAD ENT: Moist mucous membranes, pupils equal, EOMI Cardiovascular: RRR, normal S1 and S2, No lower extremity edema Respiratory: Clear to auscultation bilaterally, normal effort, no crackles or wheezing Gastrointestinal: soft, diffuse tenderness to palpation, positive for distension, normal bowel sounds Psychiatric: oriented x 3, appropriate affect and cognition LABS/IMAGING - reviewed, pertinent results as below: 11/14/2019 05:03 WBC x10^3 5.60 RBC x10^6 3.69 (L) HGB 10.9 (L) HCT 32.8 (L) MCV 88.9 MCH 29.5 MCHC 33.2 RDW-SD 53.9 (H) RDW-CV 17.2 (H) PLT x10^3 45 (LL) 11/14/2019 05:03 NA 136 K 3.3 (L) CL 105 CO2 TOTAL 25 AGAP 6 BUN 12 GLUCOSE 275 (H) CREATININE 0.60 TOTAL BILI 1.2 (H) BILI UNCON 0.7 BILI CONJ 0.0 CALCIUM 7.4 (L) MAGNESIUM 1.5 (L) T PROTEIN 6.1 (L) ALBUMIN 2.7 (L) ALK PHOS 92 ALTv 20 AST(SGOT) 37 XR abdomen 11/14/19: IMPRESSION No radiographic findings to suggest with toxic megacolon. ASSESSMENT/PLAN Jeannette Ashby is a 59 year old female hx of decompensated cirrhosis of liver with abdominal pain, distension and hematochezia C.diff colitis with hematochezia On oral vancomycin and IV flagyl Overall patient appears to be improving though she has signs of belly distension HB stable and her diarrhea is improving. She is able to tolerate liquid diet. Decompensated cirrhosis of liver: Listed for transplant--No due to cardiac comorbidities as per patient Etiology-HCV, duration 20 years ago MELD-Na score: 10 at 11/14/2019 5:03 AM MELD score: 10 at 11/14/2019 5:03 AM Calculated from: Serum Creatinine: 0.60 mg/dL (Rounded to 1 mg/dL) at 11/14/2019 5:03 AM Serum Sodium: 136 mmol/L at 11/14/2019 5:03 AM Total Bilirubin: 1.2 mg/dL at 11/14/2019 5:03 AM INR(ratio): 1.3 at 11/14/2019 5:03 AM Age: 59 years Ascites - trace perihepatic ascites Previous hx of SBP-No Esophageal Varices: Recent banding in 2019.(done at [facility]) EGD surveillance as outpatient Hepatic Encephalopathy: Grade -1 Lactulose at home. On hold sec to belly distension HCC screening Hx of HCC s/p ablation in 2018. CT triple phase as out patient. TIPS/BRTO-No Recommendations Continue serial abdominal exams Xray abdomen daily to follow on abdominal distension Please do not use narcotics to treat pain Continue oral vancomycin, and IV flagyl for now. Can discontinue vancomycin enema Advance diet as tolerated to low sodium regular food Patient seen and discussed with faculty Colleen Bazzi GI service will continue to follow Dr. Jamaal Rg Division of Gastroenterology and Hepatology, PGY-4 Pager: [phone] Associated attestation - Colleen Soler MD - 11/14/2019 6:17 PM CDTI have reviewed this patient's case with Dr. Rg. I have seen and examined the patient, and agree with Dr. Rg's findings and recommendations as above. Colleen Soler MD Gastroenterology/ Transplant Hepatology Pager [phone] 11/14/2019 18:17 Mihai Fletcher MD - 11/14/2019 8:37 AM CDT [facility] Progress Note Date of Service: 11/14/2019 08:37, HD #: 5 CC: dark red colored stool/abdominal pain 24-Hour Events: Transferred from MICU Ongoing reported hematochezia but STABLE Hgb/GI following GenSurg: no intervention for partial SBO. Repeat KUB NO SBO now; signed off Subjective: States 5/10 abd pain if with morphine still. States able to move around ok. Also had 6xBM w/ blood still but less now compared to the past few days. Physical Exam: Temp: [36.2 C (97.2 F)-36.8 C (98.2 F)] Pulse: [70-84] Resp: [16-18] BP: (140-177)/(68-82) MAP (mmHg): [103] Intake/Output Summary (Last 24 hours) at 11/14/2019 0837 Last data filed at 11/13/2019 0900 Gross per 24 hour Intake 490.7 ml Output 200 ml Net 290.7 ml General: alert and oriented x 4 (person, place and date/time); no apparent distress HEENT: normocephalic atraumatic Neck: supple, no lymphadenopathy, no bruits, no JVD Lungs: clear to auscultation bilaterally Cardio: S1, S2 normal; no murmurs, rubs or gallops Abdomen: soft, TTP midepigastric Extremities: no clubbing, cyanosis, or edema Skin: no rashes Neuro: alert and oriented x 3 Labs: HH 9.9> 10.2>11.5> 10.9 Img: Xr Kub Result Date: 11/13/2019 Nonspecific, mild gaseous distention of large and small bowel with no evidence of mechanical obstruction. Right-sided pleural effusion. Ct Angiogram Abdomen/pelvis Result Date: 11/12/2019 Study is limited secondary to presence of intraluminal contrast on the noncontrast study from the prior CT scan. No active extravasation of contrast seen in the area where there was no contrast on the noncontrast CT from today. no arterial secondary signs aneurysm, early draining vein ( AVM ) seen Changes consistent right and transverse colon with mild dilatation of transverse colon with air fluid levels . Consider infectious colitis. No changes of ischemia or vessel occlusion. Small sliding hiatal hernia. Trace perihepatic and pericolonic ascites, likely reactive. Cirrhosis without focal hepatic lesion with sequela of portal hypertension including splenomegaly and gastroesophageal varices. Prel iminary Report Dictated by Resident: Yovany Mancuso MD., have reviewed thisstudy and agree with the above report. Assessment and Plan: Jeannette Ashby is a 59 year old female admitted with the following hospital issues Abd pain/hematochezia/sepsis 2/2 cdiff (fulminant? Per GI) type colitis; negative CTA Partial SBO- resolved per KUB 11/12 R Liver lesionx1 3.6cm per CTAP Hx of HCV cirrhosis c/w HCC s/p ablation c/w esophageal varices s/p banding 2018 Anemia/thrombocytopenia 2/2 cirrhosis Being treated for fulminant type CDI colitis c/w hematochezia which appears to be improving, along with sx. Partial sbo also improved. BCX NGTD, UCX NG -Hgb checks q12h> q24h now -tx HH >7 PRN -c/w IV flagyl + PO VANC +rectal vanc d#3/10 -c/w PO protonix BID -GI on board; appreciate reccs; need PO VANC, as for IV flagyl, will check response, and decide if needs to be continued or not -GS signed off; no intervention on partial SBO as patient improving -adv diet PRN -MEDICATION [facility] request for PO VANC +/- flagyl TBD per GI reccs Hx of opioid withdrawal on home methadone *With GI permission, MICU started morphine 2mh q8hPRN only to avoid withdrawal -c/w q8hprn low dose morphine -monitor withdrawal -restart methadone at d/c -consult PAIN service regarding methadone and opioid mgt NICM LBBB; old since 2017 -monitor HTN -slow resumption of BP meds as tolerated -restart home lasix -consider restarting coreg and entresto tomorrow if BP/P permits Hx of breast CA s/p 2006 tx -monitor DMII -c/w SSI Hospital Care Issues: Pain control: tylenol. Prophylaxis: DVT-SCDs Stress Ulcer: pantoprazole Code Status: FULL Mihai Fletcher MD, MPH Internal Medicine PGY-3 [place] Team Physician # [id number] Pager # [phone] END OF DAILY PROGRESS NOTE Hospital Course: Jeannette Ashby is a 59 year old femalewith PMHx IDDM, HTN and cardiopathy, breast cancer treated in 2006, Hep C cirrhosis c/b HCC s/p ablation in 2018 and esophageal varices s/p banding admitted for 3 days history of hematemesis and melena. Concerning for ischemic colitis given acute abdominal pain. CT scan shows patent flow of SMA and celiac arteries per Surgery, not concerning for ischemiccolitis. Repeat CTAP r/o SBO with persistent colitis.+ c diff colitis. Started on PO and rectal Vanc as well as IV flagyl. Monitoring ongoing hematochezia, serial KUBs for pSBO progression, and ongoing PO VANC+IV flagyl for fulminant CDI c/w hematochezia. Abd remained tender so will monitor and advance diet cautiously. At floors, patient abd pain ongoing, but bleeding less now. GI deciding whether to continue or stop IV flagyl. If so, will need d/c planning/[facility] medication request for PO VANC +/- IV flagyl. Pain service called for her extensive opioid on methadone hx now. F/U: 1. GI reccs/ if no IV flagyl needed, [facility] medication request for PO vanc/PICC for d/c planning 2. F/U Methadone clinic at d/c (Pt very afraid of opioid withdrawal) CURRENT MEDICATIONS Current Facility-Administered Medications Medication Dose Route Frequency Last Rate Last Dose furosemide (LASIX) tablet 80 mg 80 mg Oral DAILY 80 mg at 11/13/19 1241 pantoprazole (PROTONIX) EC tablet 40 mg 40 mg Oral BID 40 mg at 11/13/192043 Sliding Scale Insulin - Aspart (NOVOLOG) + Fsbg Testing Subcutaneous TID MEALS+HS metroNIDAZOLE (FLAGYL I.V.) Piggyback 500 mg 500 mg IV Piggyback Q8H ABX 500 mg at 11/14/19 0455 morpHINE injection 2 mg 2 mg Slow IV Push Q8HPRN 2 mg at 11/14/19 0456 vancomycin (FIRVANQ) 50 mg/mL oral solution 500 mg 500 mg Oral QID 500 mg at 11/13/192043 vancomycin (VANCOCIN) 500 mg in NaCl 0.9% (NS) enema 500 mg Rectal Q6H ABX 500 mg at 11/13/200514 dextrose 10% (D10W) bolus infusion 250 mL 250 mL IV Infusion PRN - SEE INSTRUCTIONS glucagon (GLUCAGEN DIAGNOSTIC KIT) injection 1 mg 1 mg Intramuscular PRN proMETHazine (PHENERGAN) 25 mg in NaCl 0.9% (NS) 50 mL piggyback 25 mg IV Piggyback Q6HPRN 25mg at 11/12/19 0958 Associated attestation - Randi Arevalo DO - 11/15/2019 12:06 AM CDTI personally examined the patient on 11/14/[address] Fletcher's resident note with the following addition(s): - C.diff infection: abdomen is soft and tympanic. KUB is reviewed and no sign of toxic megacolon as of now.Still endorsed hematochezia however has slowed down. - Opioid dependent: patient is on methadone outpatient however narcotics has been minimalized due Roni. Diff infection. Pt reported feeling anxious and jittery however "not bad". She is on 6 mg morphine daily. Monitor for sign of opioid withdrawal. Appreciate pain service to help with her chronic painregiment in this setting. - NICM and HTN: BP meds were held in the setting of multiple daily BM and hematochezia. Lasix was restarted however would not be the best choice at this time due to ongoing multiple BM and patient appears to be euvolemic on examination. Will monitor and if needed restart at low dose. BP is trending up and will restart coreg and possibly adding entresto later. I actively participated in the decision-making process. Please see the resident's note for additional details. Randi Arevalo DO/PhD Chief Resident & Clinical Instructor # [id number] Jamaal Rg MBBS - 11/13/2019 5:15 PM CDT GI Service Progress Note Reason for consult: hematochezia Chief Complaint: hematochezia SUBJECTIVE/Interval history: Patient has 4-5 loose stools yesterday which are bloody. Overnight has 2 bowel movements. Able to tolerate clear liquids. CT abdomen and xray abdomen in past 24 hrs were as below. CURRENT MEDICATIONS - reviewed. PHYSICAL EXAM: BP (!) 152/81 (Patient Position: Supine) | Pulse 72 | Temp 36.2 C (97.2 F) (Oral) | Resp 16 | Ht 1.6 m (5' 3") | Wt 84 kg (185 lb 3 oz) | SpO2 94% | BMI 32.80 kg/m General : awake and alert, NAD ENT: Moist mucous membranes, pupils equal, EOMI Cardiovascular: RRR, normal S1 and S2, No lower extremity edema Respiratory: Clear to auscultation bilaterally, normal effort, no crackles or wheezing Gastrointestinal: soft, diffuse tenderness to palpation, positive for distension, normal bowel sounds Psychiatric: oriented x 3, appropriate affect and cognition LABS/IMAGING - reviewed, pertinent results as below: 11/13/2019 10:06 WBC x10^3 6.58 RBC x10^6 3.42 (L) HGB 10.2 (L) HCT 30.5 (L) MCV 89.2 MCH 29.8 MCHC 33.4 RDW-SD 55.7 (H) RDW-CV 17.5 (H) PLT x10^3 45 (LL) 11/13/2019 04:25 NA 136 K 3.7 CL 109 (H) CO2 TOTAL 21 (L) AGAP 6 BUN 16 GLUCOSE 151 (H) CREATININE 0.59 eGFR CALCULATION (non ) 104.7 eGFR CALCULATION () 126.9 TOTAL BILI 1.7 (H) BILI UNCON 1.3 (H) BILI CONJ 0.0 CALCIUM 7.1 (L) MAGNESIUM 2.3 T PROTEIN 5.7 (L) ALBUMIN 2.5 (L) ALK PHOS 77 ALTv 20 AST(SGOT) 33 CT Abdomen and pelvis with and without contrast: 11/12/19 IMPRESSION Study is limited secondary to presence of intraluminal contrast on the noncontrast study from the prior CT scan. No active extravasation of contrast seen in the area where there was no contrast on the noncontrast CT from today. no arterial secondary signs aneurysm, early draining vein ( AVM ) seen Changes consistent right and transverse colon with mild dilatation of transverse colon with air fluid levels . Consider infectious colitis. No changes of ischemia or vessel occlusion. Small sliding hiatal hernia. Trace perihepatic and pericolonic ascites, likely reactive. Cirrhosis without focal hepatic lesion with sequela of portal hypertension including splenomegaly and gastroesophageal varices Xray abdomen: 11/13/19 IMPRESSION Nonspecific, mild gaseous distention of large and small bowel with no evidence of mechanical obstruction. Right-sided pleural effusion. ASSESSMENT/PLAN Jeannette Ashby is a 59 year old female hx of decompensated cirrhosis of liver with abdominal pain, distension and hematochezia C.diff colitis with hematochezia On oral vancomycin, vancomycin enema and IV flagyl Overall patient appears to be improving though she has signs of belly distension CT showed colitis as above HB stable and her diarrhea is improving. She is able to tolerate liquid diet. Surgery team on board as well Decompensated cirrhosis of liver: Listed for transplant--No due to cardiac comorbidities as per patient Etiology-HCV, duration 20 years ago MELD-Na score: 10 at 11/13/2019 4:25 AM MELD score: 10 at 11/13/2019 4:25 AM Calculated from: Serum Creatinine: 0.59 mg/dL (Rounded to 1 mg/dL) at 11/13/2019 4:25 AM Serum Sodium: 136 mmol/L at 11/13/2019 4:25 AM Total Bilirubin: 1.7 mg/dL at 11/13/2019 4:25 AM INR(ratio): 1.1 at 11/13/2019 4:25 AM Age: 59 years Ascites - trace perihepatic ascites Previous hx of SBP-No Esophageal Varices: Recent banding in 2019.(done at [facility]) EGD surveillance as outpatient Hepatic Encephalopathy: Grade -1 Lactulose at home. On hold sec to belly distension HCC screening Hx of HCC s/p ablation in 2018. CT triple phase as out patient. TIPS/BRTO-No Recommendations Continue serial abdominal exams Xray abdomen daily to follow on abdominal distension Please do not use narcotics to treat pain Continue oral vancomycin, vancomycin enemas and IV flagyl for now. Discussed with primary team Patient seen and discussed with faculty Colleen Bazzi GI service will continue to follow Dr. Jamaal Rg Division of Gastroenterology and Hepatology, PGY-4 Pager: [phone] Associated attestation - Colleen Soler MD - 11/13/2019 10:06 PM CDTI have reviewed this patient's case with Dr. Rg. I have seen and examined the patient, and agree with Dr. Rg's findings and recommendations as above. Colleen Soler MD Gastroenterology/ Transplant Hepatology Pager [phone] 11/13/2019 22:06 Nuzhat Olivares RN - 11/13/2019 2:43 PM CDTCare Management Continued Stay Assessment LOS Day: 4 Estimated /Planned Discharge Date: 11/15/19 Red female 59 year old Date CM/SW last Face to Face completed with patient/family: 11/10/19 Funding source: Payor: MEDICARE / Plan: MEDICARE PART A & B / Product Type: Medicare / Insurance [place] neighborhood planner: none PCP:Gloria English Patient/Family/MPOA/Caregiver Engaged with Transitional Care Plan: yes Patient/Family/MPOA/Caregiver concurs with proposed discharge plan: yes Name, Relationship to Patient and contact number of individual acting on behalf of the patient: Patient Chief Complaint/Admitting Dx:Partial small bowel obstruction Colitis Hospital Problems: Partial small bowel obstruction Hematemesis Melena Obesity (BMI 30-39.9) Summary of hospital course: Per Chart:Jeannette Ashby is a 59 year old femalewith PMHx IDDM, HTN and cardiopathy, breast cancer treated in 2006, Hep C cirrhosis c/b HCC s/p ablation in 2018 andesophageal varices s/p banding admitted for 3 days history of hematemesis and melena. Concerning forischemic colitis given acute abdominal pain. CT scan shows patent flow of SMA and celiac arteries per Surgery, not concerning for ischemic colitis. Repeat CTAP r/o SBO with persistent colitis.+ c diff colitis. Started on PO and rectal Vanc as well as IV flagyl. Monitoring ongoing hematochezia, serial KUBs for pSBO progression, and ongoing PO VANC+IV flagyl for fulminant CDI c/w hematochezia. Abd remained tender so will monitor and advance diet cautiously. CM/SW Interventions/Resources provided: Initial CM screening and initial discharge plan established. CM/SW Interventions/Resources still needed: continue to follow for d/c planning/needs, may need PAP depending on d/c meds (potential to d/c with PO Vanc) Anticipated Discharge Destination: Home If DC to home, who will support patient: Mother Anticipated DME needs: None Referrals sent: not applicable If no, why/when will referral be sent: Has patient been accepted: not applicable Revised plan if not accepted: Home with Home health What is the clinical care happening right now that must be done in the hospital and only the hospital: GI clearance/final rec's pending Serial KUB's monitoring SBO progression Chg IV abx therapy to PO Hgb check q24hr MILDRED Gonzalez, RN [email or web address] O: [phone] C: [phone] (not for patient use) Please addend note following Length of Stay rounds and complete section below Were any recommendations made during LOS rounds on this patient:not applicable If yes, what new recommendations were made at LOS: Mihai Maldonado MD - 11/13/2019 10:37 AM CDT [facility] Progress Note/ACCEPTANCE Date of Service: 11/13/2019 10:37, HD #: 4 CC: dark red colored stool/abdominal pain 24-Hour Events: Transferred from MICU Ongoing reported hematochezia but STABLE Hgb/GI following GenSurg: no intervention for partial SBO. Repeat KUB NO SBO now; signed off Subjective: States 5/10 abd pain, still some blood on stool but better than yesterday. States hungry and wants to try advanced diet. Physical Exam: Temp: [36 C (96.8 F)-36.7 C (98.1 F)] Heart Rate (monitor): [66-79] Pulse: [63-120] Resp: [8-19] BP: (149-179)/(67-140) MAP (mmHg): [85-143] Intake/Output Summary (Last 24 hours) at 11/13/2019 1037 Last data filed at 11/13/2019 0900 Gross per 24 hour Intake 2816.7 ml Output 3404 ml Net -587.3 ml General: alert and oriented x 4 (person, place and date/time); no apparent distress HEENT: normocephalic atraumatic Neck: supple, no lymphadenopathy, no bruits, no JVD Lungs: clear to auscultation bilaterally Cardio: S1, S2 normal; no murmurs, rubs or gallops Abdomen: soft, TTP midepigastric Extremities: no clubbing, cyanosis, or edema Skin: no rashes Neuro: alert and oriented x 3 Labs: HH 9.9> 10.2 Img: Ct Angiogram Abdomen/pelvis Result Date: 11/12/2019 Study is limited secondary to presence of intraluminal contrast on the noncontrast study from the prior CT scan. No active extravasation of contrast seen in the area where there was no contrast on the noncontrast CT from today. no arterial secondary signs aneurysm, early draining vein ( AVM ) seen Changes consistent right and transverse colon with mild dilatation of transverse colon with air fluid levels . Consider infectious colitis. No changes of ischemia or vessel occlusion. Small sliding hiatal hernia. Trace perihepatic and pericolonic ascites, likely reactive. Cirrhosis without focal hepatic lesion with sequela of portal hypertension including splenomegaly and gastroesophageal varices. Prel iminary Report Dictated by Resident: Yovany Mancuso MD., have reviewed thisstudy and agree with the above report. Assessment and Plan: Jeannette Ashby is a 59 year old female admitted with the following hospital issues Abd pain/hematochezia/sepsis 2/2 cdiff (fulminant? Per GI) type colitis; negative CTA Partial SBO R Liver lesionx1 3.6cm per CTAP Hx of HCV cirrhosis c/w HCC s/p ablation c/w esophageal varices s/p banding 2018 Anemia/thrombocytopenia 2/2 cirrhosis Being treated for fulminant type CDI colitis c/w hematochezia which appears to be improving, along with sx. Partial sbo also improved. BCX NGTD, UCX NG -Hgb checks q12h; adjust tomorrow to q24s -tx HH >7 PRN -c/w IV flagyl + PO VANC d#2/10 -switch IV to PO protonix BID -serial KUBs; monitor pSBO progression -GI on board; appreciate reccs; need PO VANC, as for IV flagyl, will check response, and decide if needs to be continued or not -GS signed off; no intervention on partial SBO as patient improving -adv diet PRN -[place] [facility] [place] +- flagyl TBD per GI reccs tomorrow Hx of opioid withdrawal on home methadone *With GI permission, MICU started morphine 2mh q8hPRN only to avoid withdrawal -c/w q8hprn low dose morphine -monitor withdrawal -restart methadone at d/c NICM LBBB; old since 2018 -monitor HTN -slow resumption of BP meds as tolerated -restart home lasix -consider restarting coreg and entresto tomorrow if BP/P permits Hx of breast CA s/p 2006 tx -monitor DMII -c/w SSI Hospital Care Issues: Pain control: tylenol. Prophylaxis: DVT-SCDs Stress Ulcer: pantoprazole Code Status: FULL Mihai Fletcher MD, MPH Internal Medicine PGY-3 [place] Team Physician # [id number] Pager # [phone] END OF DAILY PROGRESS NOTE Hospital Course: Jeannette Ashby is a 59 year old femalewith PMHx IDDM, HTN and cardiopathy, breast cancer treated in 2006, Hep C cirrhosis c/b HCC s/p ablation in 2017 and esophageal varices s/p banding admitted for 3 days history of hematemesis and melena. Concerning for ischemic colitis given acute abdominal pain. CT scan shows patent flow of SMA and celiac arteries per Surgery, not concerning for ischemiccolitis. Repeat CTAP r/o SBO with persistent colitis.+ c diff colitis. Started on PO and rectal Vanc as well as IV flagyl. Monitoring ongoing hematochezia, serial KUBs for pSBO progression, and ongoing PO VANC+IV flagyl for fulminant CDI c/w hematochezia. Abd remained tender so will monitor and advance diet cautiously. CURRENT MEDICATIONS Current Facility-Administered Medications Medication Dose Route Frequency Last Rate Last Dose pantoprazole (PROTONIX) 40 mg in NaCl 0.9% (NS) 100 mL MINI-BAG 40 mg IV Piggyback Q12H metroNIDAZOLE (FLAGYL I.V.) Piggyback 500 mg 500 mg IV Piggyback Q8H ABX 500 mg at 11/13/19 0448 morpHINE injection 2 mg 2 mg Slow IV Push Q8HPRN 2 mg at 11/13/19 1003 vancomycin (FIRVANQ) 50 mg/mL oral solution 500 mg 500 mg Oral QID 500 mg at 11/13/19 0721 vancomycin (VANCOCIN) 500 mg in NaCl 0.9% (NS) enema 500 mg Rectal Q6H ABX 500 mg at 11/12/200618 dextrose 10% (D10W) bolus infusion 250 mL 250 mL IV Infusion PRN - SEE INSTRUCTIONS glucagon (GLUCAGEN DIAGNOSTIC KIT) injection 1 mg 1 mg Intramuscular PRN proMETHazine (PHENERGAN) 25 mg in NaCl 0.9% (NS) 50 mL piggyback 25 mg IV Piggyback Q6HPRN 25mg at 11/12/19 0958 Sliding Scale Insulin - Aspart (NOVOLOG) + Fsbg Testing Subcutaneous Q4H Stopped at Trevin Weiner MD - 11/13/2019 9:15 AM CDTShort transfer note Hospital course Jeannette Ashby is a 59 year old femalewith PMHx IDDM, HTN and cardiopathy, breast cancer treated in 2006, Hep C cirrhosis c/b HCC s/p ablation in 2018 and esophageal varices s/p banding admitted for 3 days history of hematemesis and melena. Concerning for ischemic colitis given acute abdominal pain. CT scan shows patent flow of SMA and celiac arteries per Surgery, not concerning for ischemiccolitis. Repeat CTAP r/o SBO with persistent colitis. + c diff colitis. Started on PO and rectal Vanc as well as IV flagyl. Items to follow up - GI bleeding: likely related to c diff colitis. Currently treating as fulminant colitis with PO/rectal vanc and flagyl. Tolerating CLD. Still has some bloody BMs. Hgb remained stable after transfusions. HH q12 to q24. Patient on opioids 2/2 methadone dependence and patient's fear of withdrawal. GI following, surgery signed off. - Hx of non ischemic HFrEF: Home meds: coreg, Entresto and lasix. Last EF in care everywhere EF 35%.EKG with LBB. Consider checking QTc if restarting home seroquel. Mallory Mahajan MD - 11/13/2019 8:46 AM CDT TRAUMA SURGERY DAILY PROGRESS NOTE Date of Service: 11/13/2019 Hospital Day #5 Patient Age: [age] year old Gender: female DIAGNOSIS/INJURIES/PROBLEMS Active Problems: Partial small bowel obstruction Hematemesis Melena Obesity (BMI 30-39.9) Jeannette Ashby is a 59 year oldeij-omhk-[place] female with hx of cirrhosis who presented to ED on 11/08 with abdominal pain, emesis, and bloody diarrhea. CT revealed thickening of large bowel suggestive of colitis and partial small bowel obstruction. Being managed conservatively in MICU. Events/Interventions past 24 hours: C diff positive but afebrile with normal WBC Continues to be on protonix and octreotide drips Pain improved today per patient Abdominal exam improved from yesterday Medications: Current Facility-Administered Medications Medication Dose Route Frequency Last Rate Last Dose metroNIDAZOLE (FLAGYL I.V.) Piggyback 500 mg 500 mg IV Piggyback Q8H ABX 500 mg at 11/13/19 0448 morpHINE injection 2 mg 2 mg Slow IV Push Q8HPRN 2 mg at 11/13/19 0130 vancomycin (FIRVANQ) 50 mg/mL oral solution 500 mg 500 mg Oral QID 500 mg at 11/13/19 0721 vancomycin (VANCOCIN) 500 mg in NaCl 0.9% (NS) enema 500 mg Rectal Q6H ABX 500 mg at 11/12/200618 dextrose 10% (D10W) bolus infusion 250 mL 250 mL IV Infusion PRN - SEE INSTRUCTIONS glucagon (GLUCAGEN DIAGNOSTIC KIT) injection 1 mg 1 mg Intramuscular PRN octreotide (SANDOSTATIN) 1,250 mcg in NaCl 0.9% (NS) infusion 50 mcg/hr IV Infusion CONTINUOUS 10 mL/hr at 11/13/19 0530 50 mcg/hr at 11/13/19 0530 pantoprazole (PROTONIX) 80 mg in NaCl 0.9% (NS) 500 mL infusion 8 mg/hr IV Piggyback [id number] mL/hr at 11/12/19 2133 8 mg/hr at 11/12/19 213 proMETHazine (PHENERGAN) 25 mg in NaCl 0.9% (NS) 50 mL piggyback 25 mg IV Piggyback Q6HPRN 25mg at 11/12/19 0958 Sliding Scale Insulin - Aspart (NOVOLOG) + Fsbg Testing Subcutaneous Q4H Stopped at Nutrition: NPO BP (!) 163/81 | Pulse 73 | Temp 36.7 C (98 F) (Tympanic) | Resp 13 | Ht 1.6 m (5' 3") | Wt 84 kg (185 lb 3 oz) | SpO2 95% | BMI 32.80 kg/m Intake/Output Summary (Last 24 hours) at 11/13/2019 0846 Last data filed at 11/13/2019 0600 Gross per 24 hour Intake 2724 ml Output 3204 ml Net -480 ml LABORATORY CBC BMP PT/INR WBC x10^3 (/CMM) Date Value 10/03/2005 8.9 WBC (10*3/L) Date Value 11/13/2019 6.40 NA Date Value 11/13/2019 136 mmol/L 10/03/2005 144 MMOL/L No results found for: PT RBC x10^6 (/CMM) Date Value 10/03/2005 5.11 (H) RBC (10*6/L) Date Value 11/13/2019 3.38 (L) K Date Value 11/13/2019 3.7 mmol/L 10/03/2005 3.5 MMOL/L INR (no units) Date Value 11/13/2019 1.1 PLT x10^3 (/CMM) Date Value 10/03/2005 223 PLT (10*3/L) Date Value 11/13/2019 44 (LL) CALCIUM Date Value 11/13/2019 7.1 mg/dL (L) 10/03/2005 8.8 MG/DL HGB Date Value 11/13/2019 9.9 g/dL (L) 10/03/2005 14.5 G/DL CL Date Value 11/13/2019 109 mmol/L (H) 10/03/2005 109 MMOL/L (H) aPTT HCT (%) Date Value 11/13/2019 30.1 (L) 10/03/2005 42.1 BUN Date Value 11/13/2019 16 mg/dL 10/03/2005 17 MG/DL APTT Patient (Seconds) Date Value 11/09/2019 25 CREATININE Date Value 11/13/2019 0.59 mg/dL 10/03/2005 0.65 MG/DL (L) GLUCOSE Date Value 11/13/2019 151 mg/dL (H) 10/03/2005 134 MG/DL (H) CO2 TOTAL Date Value 11/13/2019 21 mmol/L (L) 10/03/2005 28 MMOL/L PHYSICAL EXAM General: alert and oriented, cooperative CV: hemodynamically stable Resp: unlabored, no increased work of breathing, equal bilateral chest rise Extremities/Musculoskeletal: moves extremities well, no edema or cyanosis Skin: skin color, texture, and turgor normal; no rashes or lesions Abdomen: moderately distended but soft, mild tenderness diffusely INJURIES/PROBLEMS/DIAGNOSES and TREATMENT PLAN: 59 year-old woman with colitis, likely infectious. Clinical picture is improving. -No surgical intervention -Continue antibiotics for C diff -[facility] will sign off. Please page if patient acutely worsens and surgical evaluation is needed. Mallory Mahajan MD Plastic Surgery PGY-2 Pager [phone] 11/13/2019 Associated attestation - Ata Milligan MD - 11/13/2019 9:38 AM CDTI personally examined the patient on 11/[address] Mahajan's note. I actively participated in the decision-making process. Please see the resident's note for additional details. Erma Austni DO - 11/13/2019 2:49 AM CDT MICU Progress Note Date of Service: 11/13/2019 02:49 Reason for ICU admission: hematemesis, melena ICU Day: 4 Intubation Day: n/a Code Status: Full Last 24 hour events (major events): - C diff positive - started oral and rectal vanc and IV flagyl - dark red BM overnight Subjective: Patient reports morphine is not enough for pain. She is going to get withdrawal. Ventilator Bundle: None Lines (with dates): Peripheral IV 11/09/19 1815 Left Arm Ultrasound not used 11/09/19 Size: 20 G Peripheral IV 11/10/19 0045 Left Hand Ultrasound not used 11/10/19 Size: 22 G Peripheral IV 11/10/192014 Left Arm Ultrasound Used 11/10/19 Size: 18 G Peripheral IV 11/11/19 1049 Right;Superior Arm Ultrasound Used 11/11/19 Size: 18 G Ultrasound Zhang: none Intake/Output: Intake/Output Summary (Last 24 hours) at 11/13/2019 0249 Last data filed at 11/12/2019 2100 Gross per 24 hour Intake 4846 ml Output 3005 ml Net 1841 ml Physical Exam: Temp: [36 C (96.8 F)-36.7 C (98.1 F)] Heart Rate (monitor): [67-79] Pulse: [66-120] Resp: [8-19] BP: (137-179)/(61-140) MAP (mmHg): [82-143] Constitutional: in mild distress from pain Cardiovascular: Normal rate and regular rhythm. No murmur or gallops noted Pulmonary/Chest: CTAB. Effort normal Abdominal: Soft. TTP diffusely Musculoskeletal: Normal range of motion. no edema or tenderness. Labs (pertinent only)/Imaging: Hgb 10.4 Xr Chest 1 Vw Result Date: 11/09/2019 No acute intrathoracic abnormality. Preliminary Report Dictated by Resident: Yousuf Moy MD., have reviewed this study and agree with the above report. Ct Abdomen Pelvis W Contrast Result Date: 11/09/2019 1. Dilated small bowel loops in the upper abdomen with loops of jejunum measuring up to 2.4 cm representing partial small bowel obstruction. Transition point is seen in the central abdomen on 2:63 withdistally collapsed loops of jejunum. No evidence of ischemia. 2. Cirrhotic liver morphology with 4.5cm hypodense segment lesion measuring 47 Hounsfield units concerning for malignancy. Recommend GIconsultation and correlation with prior imaging studies and/or follow-up triple phase abdominal CT. 3. Moderate portal hypertension including splenomegaly, dilated main portal vein, small gastroesophageal varices and portal colopathy. 4. Diffuse thickening of the large bowel could represent infectiousor inflammatory colitis Findings relayed to Dr. Merida at time of dictation. Preliminary Report Dictated by Resident: Rolo Marti I, Yousuf Coffman MD., have reviewed this study and agree with the above report. Microbiology: 11/08 BCx [id number] 11/08 Ucx contaminated Assessment/Plan: Jeannette Ashby is a 59 year old female admitted with Hematemesis and Hematochezia secondary to HCC cirrhosis Neuro No acute issues. - Monitor mentation given cirrhosis and concern for encephalopathy Resp No acute issues Cardiovascular Hx of HTN Possible Hx of cardiopathy Patient with Hx of hypertension and cardiopathy on Coreg and Entresto as well as Lasix. - Currently holding given ongoing GI bleed - Reintroduce as tolerated FEN/GI C diff colitis Acute blood loss anemia secondary to GIB 2/2 to C diff colitis Sepsis secondary to infectious colitis with lactic acidosis, present on admission; resolved Hep C Cirrhosis Hx of esophageal varices s/p banding Hx of HCC Concerning liver lesion on CT Hx of Hysterectomy and cholecystectomy + c diff colitis. Started on PO and rectal Vanc as well as IV flagyl. - HH Q6H - Transfuse for Hgb <7 - Follow up GI recs - Consult surgery - no surgical intervention - vanc (PO and rectal )+ IV flagyl D2 - Continue with Protonix and Octreotide drips ID Possible infectious colitis As above - Stool studies including C diff - merrem and linezolid Renal No acute issues Endo IDDM Patient with hyperglycemia, AGAP closed. Recently admitted for hyperosmolar hyperglycemic coma. - Continue with SSI OtherDVT prophylaxis: contraindicated Erma Austin DO Hospital Course Jeannette Ashby is a 59 year old female with PMHx IDDM, HTN and cardiopathy, breast cancer treated in 2006, Hep C cirrhosis c/b HCC s/p ablation in 2018 and esophageal varices s/p banding admittedfor 3 days history of hematemesis and melena. Concerning for ischemic colitis given acute abdominal pain. CT scan shows patent flow of SMA and celiac arteries per Surgery, not concerning for ischemic colitis. Repeat CTAP r/o SBO with persistent colitis. + c diff colitis. Started on PO and rectal Vanc as well as IV flagyl. Associated attestation - Chuck Moreno MD - 11/13/2019 7:52 AM CDTI saw and examined this pt and case discussed with Dr. Austin on rounds this morning and I agree with the presentation, assessment, and plan from 11/13/2019. Jeannette Ashby is a 59 year old female 1. Acute GIB due to colitis C diff nfectious (Hgb baseline 14 to 7) 2. Symptomatic anemia due to #1 3. TCP severe (20k), increasing INR Plan: -maintain 2 large bore PIV (16g or larger) or cordis -Monitor H/H -PRBC for goal Hgb >7 -C diff Carolyn Mahoney MD - 11/12/2019 1:25 PM CDT Gastroenterology and Hepatology Progress Note Date of Service: 11/12/2019 13:25 Chief Complaint: Hematochezia SUBJECTIVE/ MAJOR EVENTS: - Patient reports worsening abdominal pain today. Had bloody bowel movements overnight. Hb dropped from 7.8 to 5.5 then increased to 11.3 after 2 units. PHYSICAL EXAM: Temp: [36 C (96.8 F)-37.1 C (98.8 F)] Heart Rate (monitor): [72-95] Pulse: [66-95] Resp: [8-19] BP: (115-176)/(57-95) MAP (mmHg): [76-112] Intake/Output Summary (Last 24 hours) at 11/12/2019 1325 Last data filed at 11/12/2019 1254 Gross per 24 hour Intake 6304 ml Output 1600 ml Net 4704 ml General: Patient is alert and oriented x4, in distress Cardiovascular: Regular rate and rhythm, no murmurs; no LE edema. Respiratory: Clear to auscultation bilaterally. Abdomen: distended, tender to palpation, sluggish bowel sounds LABS/IMAGING - REVIEWED CURRENT MEDICATIONS - REVIEWED ASSESSMENT/PLAN Jeannette Ashby is a 59 year old female with PMH as listed above, admitted to the hospital with abdominal pain and hematochezia, GI consulted for: Abdominal Pain Hematochezia Severe C.diff Colitis - The patient is presenting with acute abdominal pain followed by hematochezia, initial concern for ischemic colitis. Stool studies came back positive for C.diff. - The patient has episodes of hematochezia and hemoglobin drop, likely related to colitis and worsened by thrombocytopenia. Hb drop this morning is likely dilutional given the amount of rise in Hb. Plan - Start vancomycin 500 mg QID PO and enema - Start flagyl 500 mg IV TID - Serial abdominal exams. - Daily BMP, Mg and phos, replace as needed - Minimize narcotic use Decompensated HCV Cirrhosis MELD 16 Chronic Hepatic Failure Etiology: HCV, treated by has not achieved SVR. Decompensated with HE, ascites and bleeding EV. Ascites: perihepatic ascites on CT scan. Low salt diet when able to tolerate food. Encephalopathy: Grade 1. Minimize narcotics, correct electrolytes. Varices: Hx of banding last year. SBP: No previous episodes HCC Surveillance: The hypodensity seen on CT is likely post-treatment changes. Surveillance imaging to be obtained on non urgent basis Labs: Check daily INR, CBC and CMP. Patient was seen and discussed with Dr. Banks. Please call with questions. GI will continue to follow. Carolyn Morales MD PGY-4 Gastroenterology and Hepatology Pager [phone] Associated attestation - Ben Banks MD - 11/12/2019 1:52 PM CDTI personally examined the patient on 11/12/[address] Morales's resident/fellow note as written . I actively participated in the decision-making process. Please see the resident's note for additional details. Ben Banks MD [facility] Type Mapper Gastroenterology Trevin Ward MD - 11/12/2019 12:24 PM CDTBrief MICU Note Date: 11/12/2019 12:25 Code Status: Full ICU day: 3 Intubation Day: NA Jeannette Ashby is a 59 year old female who was admitted to the MICU with Upper and lower GI bleed 12 Hour Events (includes major events throughout the day, patient status, significant labs, radiology, consult updates): - CT AP redemonstrated colitis, probably infectious, without signs of ischemia/vessel occlusion. - Patient got overloaded after 2 u pRBC. Ordered lasix 40 IV once - transfused 1U platelets - Repeat HH shows Hgb 11, plt 60. - Patient refuses Tylenol IV and requests methadone. Currently on morphine 2mg Q8 - C diff positive, d/c merrem and linezolid. Started oral and rectal vanc as well as IV flagyl - CLD initiated. Temp: [36 C (96.8 F)-37.1 C (98.8 F)] Heart Rate (monitor): [72-95] Pulse: [66-95] Resp: [8-21] BP: (115-183)/(57-95) MAP (mmHg): [76-108] Family Update: Family updated Plan for the Next 12 Hours (includes anticipated events, complications to watch for, pending labs/radiology/consults): - Abx: Vanc oral 500 QID and rectal, flagyl 500 TID IV d1 11/12/2019 - Monitor HH and transfuse for Hgb <7 - Monitor for sxs of opioid withdrawal - Follow up on tolerance of CLD. Discontinue if N/V Trevin Ward MD PGY-1 Neurology Pager number [phone] TCReema fung MD - 11/12/2019 8:35 AM CDT TRAUMA/ACUTE CARE SURGERY PROGRESS NOTE Patient: Jeannette Ashby SUBJECTIVE: Hemoglobin down to 5.5 this morning, receiving pRBCs OBJECTIVE: Vitals: 11/12/19 0700 11/12/19 0715 11/12/19 0730 11/12/19 0800 BP: (!) 158/73 (!) 167/77 (!) 164/82 Pulse: 69 74 89 72 Resp: 10 13 12 Temp: 36.6 C (97.8 F) TempSrc: Tympanic SpO2: 92% 97% 94% Weight: Height: Intake/Output Summary (Last 24 hours) at 11/12/2019 0836 Last data filed at 11/12/2019 0730 Gross per 24 hour Intake 5599 ml Output 2175 ml Net 3424 ml Labs: Hemoglobin 5.5, platelets up to 28, WBC 5.46 Physical Exam: General: Awake and alert, appears comfortable CV: Regular rate and rhythm Pulm: Breathing comfortably, clear breath sounds GI: Soft and non-distended, moderately tender diffusely, no peritonitis MSK: No peripheral edema or cyanosis ASSESSMENT/PLAN: Jeannette Ashby is a 59 year old female with colitis of undetermined etiology. - Will follow up new CT results once done - Continue supportive care including franci and linezolid - Will continue to follow with serial abdominal exams Patient seen and discussed with Dr. Milligan, Faculty. Reema Henderson MD PGY-3 General Surgery [phone] 11/12/2019 Associated attestation - Ata Milligan MD - 11/12/2019 11:28 AM CDTI personally examined the patient on 11/[address] Henderson's note. I actively participated in the decision-making process. Please see the resident's note for additional details. Erma Austin DO - 11/12/2019 1:03 AM CDT MICU Progress Note Date of Service: 11/12/2019 01:03 Reason for ICU admission: hematemesis, melena ICU Day: 3 Intubation Day: n/a Code Status: Full Last 24 hour events (major events): - repeat CTAP r/o SBO with presence of colitis - Hgb 6.9 -> 1 unit PRBC -> 7.7 - BRBPR x 1 (~100cc) at 1630 - Hgb 7.8 -> 5.5 ( 2 unit pRBC ordered) Subjective: Patient reports that abd is more tense with diffuse pain. 1 bloody BM around 4. Denies hematemesis. Ventilator Bundle: None Lines (with dates): Peripheral IV 11/09/191814 Left Arm Ultrasound not used 11/09/19 Size: 20 G Peripheral IV 11/10/1944 Left Hand Ultrasound not used 11/10/19 Size: 22 G Peripheral IV 11/10/192014 Left Arm Ultrasound Used 11/10/19 Size: 18 G Peripheral IV 11/11/19 1049 Right;Superior Arm Ultrasound Used 11/11/19 Size: 18 G Ultrasound Zhang: none Intake/Output: Intake/Output Summary (Last 24 hours) at 11/12/2019 0103 Last data filed at 11/11/2019 2200 Gross per 24 hour Intake 4068.8 ml Output 2225 ml Net 1843.8 ml Physical Exam: Temp: [36.3 C (97.3 F)-37.1 C (98.8 F)] Heart Rate (monitor): [72-99] Pulse: [72-95] Resp: [8-21] BP: (115-162)/(57-134) MAP (mmHg): [76-137] Constitutional: in mild distress from pain Cardiovascular: Normal rate and regular rhythm. No murmur or gallops noted Pulmonary/Chest: CTAB. Effort normal Abdominal: Soft. TTP diffusely Musculoskeletal: Normal range of motion. no edema or tenderness. Labs (pertinent only)/Imaging: Hgb 7.8 Plt 30 Xr Chest 1 Vw Result Date: 11/09/2019 No acute intrathoracic abnormality. Preliminary Report Dictated by Resident: Yousuf Moy MD., have reviewed this study and agree with the above report. Ct Abdomen Pelvis W Contrast Result Date: 11/09/2019 1. Dilated small bowel loops in the upper abdomen with loops of jejunum measuring up to 2.4 cm representing partial small bowel obstruction. Transition point is seen in the central abdomen on 2:63 withdistally collapsed loops of jejunum. No evidence of ischemia. 2. Cirrhotic liver morphology with 4.5cm hypodense segment lesion measuring 47 Hounsfield units concerning for malignancy. Recommend GIconsultation and correlation with prior imaging studies and/or follow-up triple phase abdominal CT. 3. Moderate portal hypertension including splenomegaly, dilated main portal vein, small gastroesophageal varices and portal colopathy. 4. Diffuse thickening of the large bowel could represent infectiousor inflammatory colitis Findings relayed to Dr. Merida at time of dictation. Preliminary Report Dictated by Resident: Yousuf Murillo MD., have reviewed this study and agree with the above report. Microbiology: 11/08 BCx [id number] 11/08 Ucx contaminated Assessment/Plan: Jeannette Ashby is a 59 year old female admitted with Hematemesis and Hematochezia secondary to HCC cirrhosis Neuro No acute issues. - Monitor mentation given cirrhosis and concern for encephalopathy Resp No acute issues Cardiovascular Hx of HTN Possible Hx of cardiopathy Patient with Hx of hypertension and cardiopathy on Coreg and Entresto as well as Lasix. - Currently holding given ongoing GI bleed - Reintroduce as tolerated FEN/GI Infectious colitis Hep C Cirrhosis Hx of esophageal varices s/p banding Hx of HCC Concerning liver lesion on CT Hx of Hysterectomy and cholecystectomy Repeat CTAP r/o SBO with persistent colitis. Pending stool studies. - HH Q6H - Transfuse for Hgb <7 - Follow up GI recs - Consult surgery - no surgical intervention - merrem and linezolid - Continue with Protonix and Octreotide drips ID Possible infectious colitis As above - Stool studies including C diff - merrem and linezolid Renal No acute issues Endo IDDM Patient with hyperglycemia, AGAP closed. Recently admitted for hyperosmolar hyperglycemic coma. - Continue with SSI OtherDVT prophylaxis: contraindicated Erma Austin, Hospital Course Jeannette Ashby is a 59 year old female with PMHx IDDM, HTN and cardiopathy, breast cancer treated in 2006, Hep C cirrhosis c/b HCC s/p ablation in 2018 and esophageal varices s/p banding admittedfor 3 days history of hematemesis and melena. Concerning for ischemic colitis given acute abdominal pain. CT scan shows patent flow of SMA and celiac arteries per Surgery, not concerning for ischemic colitis. Repeat CTAP r/o SBO with persistent colitis. Pending stool studies. Associated attestation - Chuck Moreno MD - 11/12/2019 8:46 AM CDTI saw and examined this pt and case discussed with Dr. Austin on rounds this morning and I agree with the presentation, assessment, and plan from 11/12/2019. Jeannette Ashby is a 59 year old female 1. Acute GIB due to colitis ischemic v infectious (Hgb baseline 14 to 7) 2. Symptomatic anemia due to #1 3. TCP severe (20k), increasing INR Plan: -maintain 2 large bore PIV (16g or larger) or cordis -Monitor H/H -PRBC for goal Hgb >7 -f/u cultures, empiric antibiotics -surgery and GI appreciated -plts for >20K -pending CTA and poss GI procedureAmrani, Trevin, MD - 11/11/2019 5:01 PM CDT Brief MICU Note Date: 11/11/2019 17:01 Code Status: Full ICU day: 2 Intubation Day: NA Jeannette Ashby is a 59 year old female who was admitted to the MICU with GI bleed 12 Hour Events (includes major events throughout the day, patient status, significant labs, radiology, consult updates): - Repeat CT r/o SBO. - Concern for colitis still present - Remains afebrile - Had a Hgb drop down to 6.9, received 1U pRBC. - Had BRBPB around 100cc at 4.30PM Temp: [37 C (98.6 F)-37.9 C (100.2 F)] Heart Rate (monitor): [81-106] Pulse: [75-95] Resp: [8-18] BP: (118-162)/(55-134) MAP (mmHg): [72-137] Plan for the Next 12 Hours (includes anticipated events, complications to watch for, pending labs/radiology/consults): - Respiratory Support On RA - Pressors: NA - Sedation: NA - Abx: Merrem and Linezolid D2 - Monitor Hemodynamics and hematemesis/melena/hematochezia Trevin Ward MD PGY-1 Neurology Pager number [phone] TTCarolyn lowe MD - 11/11/2019 1:49 PM CDT Gastroenterology and Hepatology Progress Note Date of Service: 11/11/2019 13:49 Chief Complaint: Hematochezia SUBJECTIVE/ MAJOR EVENTS: - Patient continues to have abdominal pain, rated as 8/10 vs 10/10 yesterday. She feels more distended, able to pass gas, no bowel movements since last night. No nausea or vomiting - Hb and all cell lines dropped. PHYSICAL EXAM: Temp: [37 C (98.6 F)-37.9 C (100.2 F)] Heart Rate (monitor): [81-106] Pulse: [80-95] Resp: [8-17] BP: (110-149)/(55-134) MAP (mmHg): [71-137] Intake/Output Summary (Last 24 hours) at 11/11/2019 1349 Last data filed at 11/11/2019 1200 Gross per 24 hour Intake 1826.8 ml Output 1875 ml Net -48.2 ml General: Patient is alert and oriented x4, in distress Cardiovascular: Regular rate and rhythm, no murmurs; no LE edema. Respiratory: Clear to auscultation bilaterally. Abdomen: more distended than yesterday, tender to palpation, bowel sounds present. LABS/IMAGING - REVIEWED CURRENT MEDICATIONS - REVIEWED ASSESSMENT/PLAN Jeannette Ashby is a 59 year old female with PMH as listed above, admitted to the hospital with abdominal pain and hematochezia, GI consulted for: Abdominal Pain Hematochezia Ischemic Colitis - The patient is presenting with acute abdominal pain followed by maroon colored stool, likely representing ischemic colitis. Infectious etiology or portal hypertensive colopathy are less likely. -Hemoglobin dropped with minimal amount of bleeding since admission, likely dilutional since all cell lines have dropped. - Overall, there is a slight improvement in the patient's clinical status compared to yesterday. - Agree with broad spectrum antibiotics. - c/w IVF, avoid hypotension - If the patient has bowel movement, then send for C.diff and stool PCR - If repeat imaging to be done, please do CT angiogram. Decompensated HCV Cirrhosis MELD 15 Etiology: HCV, treated by has not achieved SVR. Decompensated with HE, ascites and bleeding EV. Ascites: Not present Encephalopathy: Grade 0. Varices: Hx of banding last year. SBP: No previous episodes HCC Surveillance: The hypodensity seen on CT is likely post-treatment changes. Surveillance imaging to be obtained on non urgent basis Labs: Check daily INR, CBC and CMP. Patient was seen and discussed with Dr. Banks. Please call with questions. GI will continue to follow. Carolyn Morales MD PGY-4 Gastroenterology and Hepatology Pager [phone] Associated attestation - Ben Banks MD - 11/11/2019 2:58 PM CDTI personally examined the patient on 11/11/[address] Morales's resident/fellow note as written . I actively participated in the decision-making process. Please see the resident's note for additional details. Ben Banks MD [facility] Type Mapper Gastroenterology Anthony Diaz MD - 11/11/2019 1:42 PM CDT Trauma Surgery Progress Note Date of Service: 11/11/2019 24-Hour Events: No acute events, patient has had 2 episodes of bloody BMs since last night, abdominal pain has partially improved. MEDICATIONS: Current Facility-Administered Medications Medication Dose Route Frequency Last Rate Last Dose linezolid in dextrose 5% (ZYVOX) 600 mg/300 mL infusion 600 mg 600 mg IV Piggyback Q12H 600 mg at 11/11/19 1105 morpHINE injection 2 mg 2 mg Slow IV Push Q6HPRN 2 mg at 11/11/19 0901 dextrose 10% (D10W) bolus infusion 250 mL 250 mL IV Infusion PRN - SEE INSTRUCTIONS glucagon (GLUCAGEN DIAGNOSTIC KIT) injection 1 mg 1 mg Intramuscular PRN insulin glargine (LANTUS U-100) injection 10 Units 10 Units Subcutaneous DAILY 10 Units at 11/11/19 0900 lactated ringers IV infusion 1,000 mL 1,000 mL IV Infusion CONTINUOUS 125 mL/hr at 11/10/19 1721 1,000 mL at 11/10/19 1721 meropenem (MERREM) 500 mg in NaCl 0.9% (NS) 50 mL MINI-BAG 500 mg IV Piggyback Q6H ABX 500 mgat 11/11/19 1221 NaCl 0.9% (NS) IV infusion 1,000 mL 1,000 mL IV Infusion CONTINUOUS Stopped at 11/10/19 1700 octreotide (SANDOSTATIN) 1,250 mcg in NaCl 0.9% (NS) infusion 50 mcg/hr IV Infusion CONTINUOUS 10 mL/hr at 11/11/19 0333 50 mcg/hr at 11/11/19 0333 pantoprazole (PROTONIX) 80 mg in NaCl 0.9% (NS) 500 mL infusion 8 mg/hr IV Piggyback LLDDLALIFU65 mL/hr at 11/11/19 1055 8 mg/hr at 11/11/19 1055 proMETHazine (PHENERGAN) 25 mg in NaCl 0.9% (NS) 50 mL piggyback 25 mg IV Piggyback Q6HPRN 25mg at 11/10/191936 Sliding Scale Insulin - Aspart (NOVOLOG) + Fsbg Testing Subcutaneous Q4H 2 Units at PHYSICAL EXAM: Temp: [37 C (98.6 F)-37.9 C (100.2 F)] Heart Rate (monitor): [81-106] Pulse: [80-95] Resp: [8-17] BP: (110-149)/(55-134) MAP (mmHg): [71-137] Intake/Output Summary (Last 24 hours) at 11/11/2019 1342 Last data filed at 11/11/2019 1200 Gross per 24 hour Intake 1826.8 ml Output 1875 ml Net -48.2 ml General: A & O x 3 HEENT: no scleral icterus, moist mucous membranes Respiratory: CTAB Cardio: normal rate and sinus rhythm Abdomen: soft, moderate distension, tenderness to palpation diffusely, no signs of peritonitis. Extremities: DP and PT pulses 2+ bilaterally. No edema. Skin: no rashes LABORATORY: Hemogram Recent Labs 11/09/19 1815 11/10/19 0057 11/10/19 1831 11/11/19 0027 11/11/19 0432 11/11/19 0912 WBC 20.39* 13.47* 10.04 7.81 7.81 8.56 HGB 14.4 12.6 8.8* 7.0* 7.3* 6.9* HCT 43.2 38.9 27.7* 21.9* 23.6* 22.9* PLT 82* 67* 34* 32* 22* 38* Chemistry Recent Labs 11/09/19 1815 11/09/19 2102 11/10/19 0057 11/11/19 0028 11/11/19 0542 NA 138 137 139 138 136 K 5.8* 5.3* 4.7 3.6 3.6 CL 101 105 107 111* 110* TCO2 28 22* 19* 20* 20* BUN 27* 24* 22 17 17 CREAT 0.92 0.79 0.79 0.46* 0.47* GLU 358* 339* 344* 136* 153* PHOS -- -- -- -- 1.4* MG -- -- -- 1.3* -- CA 9.2 8.1* 8.3* 6.5* 6.6* Arterial Blood Gas No results for input(s): ACPH, ACPCO2, ACPO2, ACHCO3, ACNA, ACK, ACCAIONZ, ACBE in the last 72 hours. Coagulation Profile Recent Labs 11/09/19181411/11/19 0028 PTPAT 14.1 16.6* PTINR 1.1 1.5 APTTPAT 25 -- Urinalysis Recent Labs 11/09/19 1931 UPROTEIN Negative UGLUCOSE 500 mg/dL* UKETONES 5 mg/dL* UBILI Negative ULEUKEST Negative UNITRITE Negative USPGRAV 1.020 LFTs Recent Labs 11/09/19181411/10/19 0057 11/11/19 0028 11/11/19 0542 AST 82* 61* 27 27 ALT 43* 36* 19 21 ALKPHOS 161* 128* 59 79 LIPASE 120 -- -- -- BILIT 3.3* 3.8* 2.1* 2.0* BILICONJ -- 0.2 0.0 -- BILIUNCON -- 2.9* 1.6* -- Hospital Problem list: Patient Active Problem List Diagnosis Date Noted Hematemesis 11/10/2019 Melena 11/10/2019 Partial small bowel obstruction 11/09/2019 Hyperglycemia 07/31/2019 Cocaine dependence, continuous 10/03/2005 Assessment & Plan: Jeannette Ashby is a 59 year old female with moderate-severe abdominal pain, and dark blood per rectum with signs of acute infection. Based on her clinic picture, patient likely has portal colopathy vs. severe infectious colitis. Celiac trunk and SMA are patent throughout with good vascularity to the colon making ischemic colitis less likely. No signs of small bowel obstruction. Patient is slightly improving. 1. Continue Meropenem and Linezolid. 2. Continue aggressive resuscitation. 3. Continue management of baseline cirrhosis. 4. No surgical intervention will be recommended at this time. We will continue to follow with abdominal exams. 5. Please notify if any acute changes. Anthony Strickland MD 11/11/2019 General Surgery, PGY-2 C: [phone] Associated attestation - Ata Milligan MD - 11/12/2019 11:03 AM CDTI personally examined the patient on 11/[address] Quezada's note. I actively participated in the decision-making process. Please see the resident's note for additional details. Pt's pain improved, WBC . Erma Austin DO - 11/11/2019 3:31 AM CDT MICU Progress Note Date of Service: 11/11/2019 03:31 Reason for ICU admission: hematemesis, melena ICU Day: 2 Intubation Day: n/a Code Status: Full Last 24 hour events (major events): Admitted to ICU GI recommended surgery consult for concern of ischemic colitis Concern for infectious colitis per Surgery Started merrem and linezolid Patient continues to refuse NG tube Surgery recommend CTAP with contrast in AM for evaluation of progress Pt had a BM overnight, with small amount of blood clots, no bright red blood Subjective: Patient reports diffuse abd pain Ventilator Bundle: None Lines (with dates): Peripheral IV 11/09/191814 Left Arm Ultrasound not used 11/09/19 Size: 20 G Peripheral IV 11/10/1944 Left Hand Ultrasound not used 11/10/19 Size: 22 G Peripheral IV 11/10/192014 Left Arm Ultrasound Used 11/10/19 Size: 20 G Zhang: none Intake/Output: Intake/Output Summary (Last 24 hours) at 11/11/2019 0331 Last data filed at 11/11/2019 0000 Gross per 24 hour Intake 1329 ml Output 665 ml Net 664 ml Physical Exam: Temp: [36.3 C (97.3 F)-37.9 C (100.2 F)] Heart Rate (monitor): [85-106] Pulse: [79-95] Resp: [12-20] BP: (103-136)/(55-91) MAP (mmHg): [71-98] Constitutional: in no distress Cardiovascular: Normal rate and regular rhythm. No murmur or gallops noted Pulmonary/Chest: CTAB. Effort normal Abdominal: Soft. TTP diffusely Musculoskeletal: Normal range of motion. no edema or tenderness. Labs (pertinent only)/Imaging: Hgb 14 -> 12 -> 8.8 -> 7 Plt 82 -> 67 -> 34 -> 32 Xr Chest 1 Vw Result Date: 11/09/2019 No acute intrathoracic abnormality. Preliminary Report Dictated by Resident: Yousuf Moy MD., have reviewed this study and agree with the above report. Ct Abdomen Pelvis W Contrast Result Date: 11/09/2019 1. Dilated small bowel loops in the upper abdomen with loops of jejunum measuring up to 2.4 cm representing partial small bowel obstruction. Transition point is seen in the central abdomen on 2:63 withdistally collapsed loops of jejunum. No evidence of ischemia. 2. Cirrhotic liver morphology with 4.5cm hypodense segment lesion measuring 47 Hounsfield units concerning for malignancy. Recommend GIconsultation and correlation with prior imaging studies and/or follow-up triple phase abdominal CT. 3. Moderate portal hypertension including splenomegaly, dilated main portal vein, small gastroesophageal varices and portal colopathy. 4. Diffuse thickening of the large bowel could represent infectiousor inflammatory colitis Findings relayed to Dr. Merida at time of dictation. Preliminary Report Dictated by Resident: Yousuf Murillo MD., have reviewed this study and agree with the above report. Microbiology: 11/08 BCx [id number] 11/08 Ucx pending Assessment/Plan: Jeannette Ashby is a 59 year old female admitted with Hematemesis and Hematochezia secondary to HCC cirrhosis Neuro No acute issues. - Monitor mentation given cirrhosis and concern for encephalopathy Resp Breathing on RA. No acute issues Cardiovascular Hx of HTN Possible Hx of cardiopathy Patient with Hx of hypertension and cardiopathy on Coreg and Entresto as well as Lasix. - Currently holding given ongoing GI bleed - Reintroduce as tolerated - Follow up on TTE FEN/GI Infectious colitis Hep C Cirrhosis Hx of esophageal varices s/p banding Hx of HCC Concerning liver lesion on CT Hx of Hysterectomy and cholecystectomy CT scan shows patent flow of SMA and celiac arteries per Surgery, not concerning for ischemic colitis. SBO unlikely given patient has BM overnight. Will collect stool sample to r/o infectious etiology - HH Q6H - Transfuse for Hgb <7 - Follow up GI recs - Consult surgery - merrem and linezolid - Continue with Protonix and Octreotide drips ID Possible infectious colitis As above - Stool studies including C diff - merrem and linezolid Renal No acute issues Endo IDDM Patient with hyperglycemia, AGAP closed. Recently admitted for hyperosmolar hyperglycemic coma. - Continue with SSI OtherDVT prophylaxis: contraindicated Erma Austin DO Hospital Course Jeannette Ashby is a 59 year old female with PMHx IDDM, HTN and cardiopathy, breast cancer treated in 2006, Hep C cirrhosis c/b HCC s/p ablation in 2018 and esophageal varices s/p banding admittedfor 3 days history of hematemesis and melena. Concerning for ischemic colitis given acute abdominal pain. CT scan shows patent flow of SMA and celiac arteries per Surgery, not concerning for ischemic colitis. SBO unlikely given patient has BM overnight. Will collect stool sample to r/o infectious etiology Associated attestation - Chuck Moreno MD - 11/11/2019 9:25 AM CDTI saw and examined this pt and case discussed with Dr. Austin on rounds this morning and I agree with the presentation, assessment, and plan from 11/11/2019. I have also reviewed the H&P by Dr. Ward and I agree with the history, physical examination, assessment and plan from the 11/10/19 admission. 1. Acute GIB due to colitis ischemic v infectious (Hgb baseline 14 to 7) 2. Symptomatic anemia due to #1 3. TCP severe (20k), increasing INR Plan: -maintain 2 large bore PIV (16g or larger) or cordis -Monitor H/H -PRBC for goal Hgb >7 -f/u cultures, empiric antibiotics -surgery and GI appreciated -plts for >20KPfost, Jenny Christianson MD - 11/10/2019 6:40 PM CDT TAC Chief Note Date 11/10/2019 S: Abdominal pain, vomiting, hematochezia 3 days ago PMH: alcoholic and Hep C cirrhosis, DM, CHF, smoker, breast cancer s/p mastectomy, hepatocellular carcinoma s/p ablation 1 year ago PSH: tram flap reconstruction for breast cancer; c section; cholecystectomy, hysterectomy O: Vitals: 11/10/19 0752 11/10/19 1110 11/10/19 1530 11/10/19 1800 BP: 103/60 107/75 110/57 118/57 Pulse: 79 90 85 90 Resp: 13 17 Temp: 37 C (98.6 F) 36.3 C (97.3 F) 37 C (98.6 F) TempSrc: Tympanic Tympanic Tympanic SpO2: 94% 93% 95% 97% Weight: Height: PE: Gen: alert and oriented Abdomen: soft, diffuse tenderness; large midline and transverse incisions Rectum: blood and stool in rectal vault WBC 13 down from 20 Tbili 3.8 - 2.9 unconjugated Lactic acid 2.[address]5 [address] 4.5 cm lobulated lesion in liver with intrahepatic biliary dilation Splenomegaly Enlarged gurwinder hepatis lymph nodes Hiatal hernia Distended stomach Large bowel thickening and decreased enhancement with surrounding pericolonic stranding consistent with portal colopathy Dilated main portal vein 1.5 cm Gastroesophageal collateral vessels Mesenteric root vessels patent A/P: Jeannette Ashby is a 59 year old female with colitis. CT scan shows patent flow of SMA and celiac arteries. Likely etiology infectious vs portal hypertension colopathy vs phlegmonous colitis. Unlikely to have SBO due to stool in rectum and only 1 day of no bowel movement. - continue medical therapy - antibiotics - merrem - please add linezolid to cover enterococcus - place NG tube and lavage - no acute surgical intervention at this time Jenny Mckee MD Trauma/Acute Care Pager: Caryn Kim MD - 11/10/2019 12:14 PM CDT Hospitalist Progress Note SUBJECTIVE: + abd pain, n/v, still having blood per rectum CURRENT MEDICATIONS - reviewed. Current Facility-Administered Medications Medication Dose Route Frequency Last Rate Last Dose dextrose 50 % in water (D50W) injection 25 mL 25 mL Slow IV Push PRN glucagon (GLUCAGEN DIAGNOSTIC KIT) injection 1 mg 1 mg Intramuscular PRN octreotide (SANDOSTATIN) 1,250 mcg in NaCl 0.9% (NS) infusion 50 mcg/hr IV Infusion CONTINUOUS 10 mL/hr at 11/10/19 0115 50 mcg/hr at 11/10/19 0115 pantoprazole (PROTONIX) 80 mg in NaCl 0.9% (NS) 500 mL infusion 8 mg/hr IV Piggyback [id number] mL/hr at 11/10/19 0115 8 mg/hr at 11/10/19 0115 proMETHazine (PHENERGAN) 25 mg in NaCl 0.9% (NS) 50 mL piggyback 25 mg IV Piggyback Q6HPRN 25mg at 11/10/19 0950 Sliding Scale Insulin - Lispro (HumaLOG) + Fsbg Testing Subcutaneous Q4H 4 Units at 11/09/201038 morpHINE injection 2 mg 2 mg Slow IV Push Q4HPRN 2 mg at 11/10/19 0941 NaCl 0.9% (NS) IV infusion 1,000 mL 1,000 mL IV Infusion CONTINUOUS 125 mL/hr at 11/10/19 0730 1,000 mL at 11/10/19 0730 piperacillin-tazobactam (ZOSYN) 3.375 gram/50 mL Piggyback RTU 3.375 g 3.375 g IV Piggyback Q6HABX 3.375 g at 11/10/19 1152 PHYSICAL EXAM: BP 107/75 | Pulse 90 | Temp 36.3 C (97.3 F) (Tympanic) | Resp 20 | Ht 1.6 m (5' 3") | Wt 74kg (163 lb 1.6 oz) | SpO2 93% | BMI 28.89 kg/m Temp: [36.3 C (97.3 F)-37.9 C (100.2 F)] Heart Rate (monitor): [100] Pulse: [79-108] Resp: [15-22] BP: (103-130)/(58-103) MAP (mmHg): [76-92] Intake/Output Summary (Last 24 hours) at 11/10/2019 1227 Last data filed at 11/10/2019 1000 Gross per 24 hour Intake 1200 ml Output 15 ml Net 1185 ml NAD Anicteric sclera, oral mucosa clear Good air entry b/l RRR, nl s1s2 Abd soft, + tender AAO, no gross deficits Skin warm and dry LABS/IMAGING - reviewed, pertinent results as below: CBC BMP PT/INR WBC x10^3 (/CMM) Date Value 10/03/2005 8.9 WBC (10*3/L) Date Value 11/10/2019 13.47 (H) NA Date Value 11/10/2019 139 mmol/L 10/03/2005 144 MMOL/L No results found for: PT RBC x10^6 (/CMM) Date Value 10/03/2005 5.11 (H) RBC (10*6/L) Date Value 11/10/2019 4.15 K Date Value 11/10/2019 4.7 mmol/L 10/03/2005 3.5 MMOL/L INR (no units) Date Value 11/09/2019 1.1 PLT x10^3 (/CMM) Date Value 10/03/2005 223 PLT (10*3/L) Date Value 11/10/2019 67 (L) CALCIUM Date Value 11/10/2019 8.3 mg/dL (L) 10/03/2005 8.8 MG/DL HGB Date Value 11/10/2019 12.6 g/dL 10/03/2005 14.5 G/DL CL Date Value 11/10/2019 107 mmol/L 10/03/2005 109 MMOL/L (H) aPTT HCT (%) Date Value 11/10/2019 38.9 10/03/2005 42.1 BUN Date Value 11/10/2019 22 mg/dL 10/03/2005 17 MG/DL APTT Patient (Seconds) Date Value 11/09/2019 25 CREATININE Date Value 11/10/2019 0.79 mg/dL 10/03/2005 0.65 MG/DL (L) IMAGING- Hospital Encounter on 11/09/19 CT ABDOMEN PELVIS W CONTRAST Narrative CT ABDOMEN AND PELVIS WITH CONTRAST HISTORY: Abd pain, acute, generalized, with fever COMPARISON: None. TECHNIQUE: Contiguous axial imaging from the level of the lung bases through the pubic symphysis was performed after the administration of 120 cc of intravenous Omnipaque contrast. Coronal and sagittal reconstructions were obtained. FINDINGS: LOWER THORAX: Scattered calcified granulomas are seen in the lung bases. No pleural effusion is present. No cardiomegaly. LIVER: The liver is enlarged measuring nearly 20 cm in craniocaudal dimension with heterogenous parenchyma and micronodular contour, consistent with cirrhosis. A 4.5 cm lobulated hypodense lesion in segment measures 47 Hounsfield units, indeterminate. Scattered subcentimeter calcifications are seen. GALLBLADDER: Prior cholecystectomy. Mild central intrahepatic biliary ductal dilation and prominence of the distal common bile duct at 7 mm likely representing reservoir phenomenon from prior cholecystectomy. SPLEEN: Splenomegaly up to 16 cm in craniocaudal dimension. PANCREAS: No ductal dilation or masses. Somewhat atrophic pancreas. ADRENAL GLANDS: No adrenal nodules. KIDNEYS: No hydronephrosis, stones, or solid masses. 3.0 cm simple cyst at the right midpole. Subcentimeter cortical hypodensities bilaterally are too small to characterize. No obstructive nephrolithiasis. No hydronephrosis. PERITONEUM AND RETROPERITONEUM: No free air. Small volume of abdominal ascites in the right subdiaphragmatic space and in the right paracolic gutter. Diffuse ill-defined mesenteric stranding in the upper abdomen around the mesenteric root vessels and large bowel is nonspecific, but likely related to underlying liver disease. LYMPH NODES: Mildly enlarged gurwinder hepatis lymph nodes measuring up to 1.2 cm, likely reactive to liver disease. GI TRACT: Small sliding hiatal hernia. The stomach is distended with gas and layering ingested fluid material. Dilated small bowel loops in the upper abdomen with loops of jejunum measuring up to 2.4 cm with transition point on 2:63 in the central abdomen with collapsed loops of distal jejunum. Fecalization of small bowel suggesting delayed GI transit. Large bowel wall thickening and decreased enhancement with surrounding pericolonic stranding consistent presenting portal colopathy. The descending and rectosigmoid colon are normally enhancing. Status post appendectomy. PELVIS: The urinary bladder is underdistended. Prior hysterectomy VESSELS: Dilated main portal vein measuring 1.5 cm. Tiny gastroesophageal collateral vessels. Conventional hepatic arterial anatomy. The mesenteric root vessels are patent. BONES AND SOFT TISSUES: No aggressive or suspicious osseous lesions. Diastasis recti and postsurgical changes in the anterior abdominal wall without competition. Impression 1. Dilated small bowel loops in the upper abdomen with loops of jejunum measuring up to 2.4 cm representing partial small bowel obstruction. Transition point is seen in the central abdomen on 2:63 with distally collapsed loops of jejunum. No evidence of ischemia. 2. Cirrhotic liver morphology with 4.5 cm hypodense segment lesion measuring 47 Hounsfield units concerning for malignancy. Recommend GI consultation and correlation with prior imaging studies and/or follow-up triple phase abdominal CT. 3. Moderate portal hypertension including splenomegaly, dilated main portal vein, small gastroesophageal varices and portal colopathy. 4. Diffuse thickening of the large bowel could represent infectious or inflammatory colitis Findings relayed to Dr. Merida at time of dictation. Preliminary Report Dictated by Resident: Yousuf Murillo MD., have reviewed this study and agree with the above report. XR CHEST 1 VW Narrative XR CHEST 1 VW Comparison: Chest x-ray 07/31/2019 History: fever Findings: The lungs are clear. No focal consolidation. No pleural effusion or pneumothorax is identified. The heart is normal in size. No acute osseous abnormality. Multiple surgical sly overlie the thorax. Impression No acute intrathoracic abnormality. Preliminary Report Dictated by Resident: Yousuf Moy MD., have reviewed this study and agree with the above report. ASSESSMENT/PLAN Jeannette Ashby is a 59 year old female with Sepsis 2/2 small bowel obstruction, colitis with lactic acidosis, Acute GI Bleeding (BRBPR, coffee ground emesis). Hx of HCV cirrhosis, liver cancer, esophageal varices s/p banding in the past. Partial per CT. Concern for adhesions vs malignancy vs infectious colitis NPO, IV fluids, anti-emetics Given CHF, low EF, need to be careful with fluids. Holding lasix as npo Lactic acid improving with fluids Surgery consult. Dr. Brand was notified from ER. Discussed with Dr. Alcala surgeon who recommends transfer to [place] for higher level of care. Also as per surgeon recommend will insert zhang and ng tube as patient is vomiting currently in the morning. Patient accepted to [facility] ICU by Dr. Moreno given low-grade fever, leukocytosis will start on zosyn day 1. Check C diff, stool panel as patient reported diarrhea on admission F/u AFP puls ox and telemetry monitoring Possible hematemesis Coags, Hb normal IV protonix, octreotide drips for hx esophageal varices. Last banded 1 year ago at [facility]. GI consult Dr. [place] Hyperglycemia Hx type 2 DM on insulin. Takes 50 units 70/30 BID. A1c 8.2 SSI q4h and lantus 10 units daily while NPO Hx liver cancer, HCV cirrhosis Follows at [facility]. S/p ablation 1 year ago. Now on surveillance. Thrombocytopenia Hx cirrhosis. At baseline. Avoid heparin products INR 1.1 Hyperkalemia on admission Unclear etiology. Resolved spontaneously. Monitor BMP Chronic pain syndrome Hold methadone, norco IV morphine prn Nonischemic cardiomyopathy. Chronic systolic and diastolic CHF, EF 35%, Follows Dr. Augustin for cardiology.. Hold lasix 80 mg qd, coreg, kcl, entresto Chronic hypoxic respiratory failure on 2 L at night COPD Former smoker Mood disorder. Bipolar disorder. Holding seroquel as NPO HCC s/p radio freq ablation, currently surveillance Hx of breast cancer s/p chemo, b/l mastectomy, in remission Chronic constipatoin Hep C cirrhosis, portal hypertension, esophageal varices FE, unclear if compliant with CPAP Umbilical hernia Prophylaxis: DVT- SCD Stress Ulcer: pantoprazole Full Code, advance care planning discussed with patient on admission, surrogate decision maker in chart Mo Amado LMSW - 11/10/2019 10:29 AM CDTCare Management Social Functional Assessment Patient Name: Jeannette Ashby Age: [age] year old Sex: female Patient's Previous Admission Date at [facility]: 07/31/2019 Due to the current COVID-19 pandemic this form/assessment was completed telephonically. Copies of required forms will be emailed or mailed. Current diagnosis and co-morbidities: Partial small bowel obstruction Colitis Readmission Questions: Was patient discharged from any acute care hospital within the last 30 days: No Social Functional Assessment: Primary language spoken/preferred: Guamanian Mental Status: Alert & Oriented to Person,Place & Time Information given by: Self Patient's support system: Parent Name and number of support system: Bayron Pearl @[phone] (mother) Primary District Director: Self MPOA: No Living Arrangement: Apartment Address of living arrangement : [address] [place] [address] Persons living in home: Self;Parent Names & numbers of persons living in home: Bayron Pearl @[phone] (mother) Barriers to returning home: None Baseline functional status- ambulation: Independent Functional status-baseline personal care: Independent Baseline functional status- driving: Dependent Baseline functional status- grocery shopping: Independent Functional status-baseline housekeeping: Independent Functional status-baseline meal prep: Independent Current functional status same as prior: Yes Do you have a PCP?: Yes Name of PCP: [facility] Agency: No Provider Services: No DME Company: Yes Previous or current DME company: Current(Pt does not remember the name of the company) Equipment: O2: [employer](Pt does not know the name of the company she uses.At night pt uses O2) Hemodialysis: No Community resources utilized: [employer] [place];SSA/SSI/Medicaid Funding Resources: Medicare A & B Prescription coverage plan: Medicaid-3 slots Pharmacy where meds are filled: Other Other pharmacy: [facility] Anticipated services prior to disharge: Continue Medical Eval Expected mode of discharge transportation: Family Name and phone number of the friend or family member picking up the patient: Bayron Pearl @[phone] (mother) Additional Recommendations for DC: Pending needs Recommended discharge plan: Home SFA Complete: Social Functional Assessment complete: Yes Alcohol Use Screening (AUDIT-C) How often do you have a drink containing alcohol?: Never SCORE: 0 Did patient elect to have resources provided: No Role of Care Management explained.yes Mo Hu LMSW Lead Cytogenetic Technologist, Care Management documented in this encounter Plan of Treatment Name Type Priority Associated Diagnoses Order S chedule FECAL PATHOGENS BY PCR LAB Routine ONCE for 1 Occurrences starting 2019 until 11/10/2019 FECES CULTURE LAB Routine ONCE for 1 Occ urrences starting 2019 until 11/10/2019 Health Maintenance Due Date Last Done Comments HEPATITIS C (HCV) SCREEN 1961 PNEUMOCOCCAL 0-64 YEARS COMBINED SERIES (1 of 1 - 1967 PPSV23) DTaP,Tdap,and Td Vaccines (1 - Tdap) 1972 PAP SMEAR 1982 Breast Cancer Screening (MAMMOGRAM) 2001 COLONOSCOPY 2011 Zoster Recombinant Vaccine (SHINGRIX) (1 of 2) 2011 LUNG CANCER SCREEN: Recommended for age 55-80 with 30 + 05/04/20 16 pack year history INFLUENZA VACCINE (Season Ended) 2020 documented as of this encounter Procedures Procedure Name Priority Date/Time Associated Diagnosis Comme nts POCT GLUCOSE Routine 11/16/2019 6:02 Results for this (AUTOMATED) AM CDT procedure are i n the results section. POCT GLUCOSE Routine 11/15/2019 10:12 Results for this (AUTOMATED) PM CDT procedure are i n the results section. EXTRA TUBE RED Routine 11/15/2019 8:40 PM CDT EXTRA TUBE LT. BLUE Routine 11/15/2019 8:40 PM CDT EXTRA TUBE LAV Routine 11/15/2019 8:40 PM CDT BASIC METABOLIC Routine 11/15/2019 8:38 Results for this PANEL (NA, K, CL, PM CDT procedure are in CO2, GLUCOSE, BUN, the resul ts CREATININE, CA) section. TROPONIN I Routine 11/15/2019 8:38 Results for this PM CDT procedure are i n the results section. PROLACTIN Routine 11/15/2019 8:38 Results for this PM CDT procedure are i n the results section. MAGNESIUM Routine 11/15/2019 8:38 Results for this PM CDT procedure are i n the results section. CREATINE KINASE Routine 11/15/2019 8:38 Results for this PM CDT procedure are i n the results section. POCT GLUCOSE Routine 11/15/2019 1:50 Results for this (AUTOMATED) PM CDT procedure are i n the results section. XR KUB ESSIE 11/15/2019 11:40 Partial small bowel Resu lts for this AM CDT obstruction procedure are i n the results section. POCT GLUCOSE Routine 11/15/2019 8:01 Results for this (AUTOMATED) AM CDT procedure are i n the results section. CBC WITH Routine 11/15/2019 4:36 Results for this DIFFERENTIAL AM CDT procedure are i n the results section. CBC WITH Routine 11/15/2019 4:36 Results for this DIFFERENTIAL AM CDT procedure are i n the results section. BASIC METABOLIC Routine 11/15/2019 4:36 Results for this PANEL (NA, K, CL, AM CDT procedure are in CO2, GLUCOSE, BUN, the resul ts CREATININE, CA) section. POCT GLUCOSE Routine 11/14/2019 9:59 Results for this (AUTOMATED) PM CDT procedure are i n the results section. POCT GLUCOSE Routine 11/14/2019 4:18 Results for this (AUTOMATED) PM CDT procedure are i n the results section. XR KUB Routine 11/14/2019 12:04 Gastrointestinal Results for this PM CDT hemorrhage with melena proce dure are in the results section. POCT GLUCOSE Routine 11/14/2019 11:44 Results for this (AUTOMATED) AM CDT procedure are i n the results section. CBC WITH Routine 11/14/2019 5:03 Results for this DIFFERENTIAL AM CDT procedure are i n the results section. PROTHROMBIN TIME / Routine 11/14/2019 5:03 Resul ts for this INR AM CDT procedure are i n the results section. CBC WITH Routine 11/14/2019 5:03 Results for this DIFFERENTIAL AM CDT procedure are i n the results section. BASIC METABOLIC Routine 11/14/2019 5:03 Results for this PANEL (NA, K, CL, AM CDT procedure are in CO2, GLUCOSE, BUN, the resul ts CREATININE, CA) section. HEPATIC FUNCTION Routine 11/14/2019 5:03 Results for this PANEL ([id number]) AM CDT procedure are in (ALB,T.PRO,BILI the results T,BU/BC,ALT,AST,ALK section. PHOS) MAGNESIUM Routine 11/14/2019 5:03 Results for this AM CDT procedure are i n the results section. POCT GLUCOSE Routine 11/13/2019 10:05 Results for this (AUTOMATED) PM CDT procedure are i n the results section. CBC WITH Routine 11/13/2019 6:03 Results for this DIFFERENTIAL PM CDT procedure are i n the results section. CBC WITH Routine 11/13/2019 6:03 Results for this DIFFERENTIAL PM CDT procedure are i n the results section. POCT GLUCOSE Routine 11/13/2019 5:57 Results for this (AUTOMATED) PM CDT procedure are i n the results section. XR KUB ESSIE 11/13/2019 12:01 Partial small bowel Resu lts for this PM CDT obstruction procedure are i n the results section. POCT GLUCOSE Routine 11/13/2019 11:52 Results for this (AUTOMATED) AM CDT procedure are i n the results section. EKG-12 LEAD Routine 11/13/2019 11:46 AM CDT PROFILE / HEMOGRAM ESSIE 11/13/2019 10:06 Resul ts for this AM CDT procedure are i n the results section. POCT GLUCOSE Routine 11/13/2019 7:54 Results for this (AUTOMATED) AM CDT procedure are i n the results section. PROTHROMBIN TIME / ESSIE 11/13/2019 4:25 Resul ts for this INR AM CDT procedure are i n the results section. PROFILE / HEMOGRAM ESSIE 11/13/2019 4:25 Resul ts for this AM CDT procedure are i n the results section. BASIC METABOLIC ESSIE 11/13/2019 4:25 Results for this PANEL (NA, K, CL, AM CDT procedure are in CO2, GLUCOSE, BUN, the resul ts CREATININE, CA) section. HEPATIC FUNCTION ESSIE 11/13/2019 4:25 Results for this PANEL (18227) AM CDT procedure are in (ALB,T.PRO,BILI the results T,BU/BC,ALT,AST,ALK section. PHOS) FERRITIN SERUM Add-on 11/13/2019 4:25 Results f or this AM CDT procedure are i n the results section. MAGNESIUM ESSIE 11/13/2019 4:25 Results for this AM CDT procedure are i n the results section. POCT GLUCOSE Routine 11/12/2019 11:32 Results for this (AUTOMATED) PM CDT procedure are i n the results section. PROFILE / HEMOGRAM ESSIE 11/12/2019 10:14 Resul ts for this PM CDT procedure are i n the results section. POCT GLUCOSE Routine 11/12/2019 7:42 Results for this (AUTOMATED) PM CDT procedure are i n the results section. POCT GLUCOSE Routine 11/12/2019 4:27 Results for this (AUTOMATED) PM CDT procedure are i n the results section. PROFILE / HEMOGRAM ESSIE 11/12/2019 4:15 Resul ts for this PM CDT procedure are i n the results section. BASIC METABOLIC ESSIE 11/12/2019 4:15 Results for this PANEL (NA, K, CL, PM CDT procedure are in CO2, GLUCOSE, BUN, the resul ts CREATININE, CA) section. MAGNESIUM ESSIE 11/12/2019 4:15 Results for this PM CDT procedure are i n the results section. TRANSFUSE PLATELETS STAT 11/12/2019 12:56 PM CDT POCT GLUCOSE Routine 11/12/2019 11:53 Results for this (AUTOMATED) AM CDT procedure are i n the results section. PROFILE / HEMOGRAM ESSIE 11/12/2019 10:58 Resul ts for this AM CDT procedure are i n the results section. PREPARE PLATELETS STAT 11/12/2019 10:46 Result s for this AM CDT procedure are i n the results section. TRANSFUSE PACKED RBC Routine 11/12/2019 10:[address] ANGIOGRAM STAT 11/12/2019 9:33 Gastrointestinal Results for this ABDOMEN/PELVIS AM CDT hemorrhage with melena procedure are in Hematochezia the results section. PREPARE PACKED RBC Routine 11/12/2019 8:34 Resul ts for this AM CDT procedure are i n the results section. POCT GLUCOSE Routine 11/12/2019 7:38 Results for this (AUTOMATED) AM CDT procedure are i n the results section. TRANSFUSE PACKED RBC Routine 11/12/2019 7:36 AM CDT POCT GLUCOSE Routine 11/12/2019 5:06 Results for this (AUTOMATED) AM CDT procedure are i n the results section. POCT GLUCOSE Routine 11/12/2019 5:04 Results for this (AUTOMATED) AM CDT procedure are i n the results section. CBC WITH Routine 11/12/2019 4:59 Results for this DIFFERENTIAL AM CDT procedure are i n the results section. PROTHROMBIN TIME / ESSIE 11/12/2019 4:59 Resul ts for this INR AM CDT procedure are i n the results section. CBC WITH Routine 11/12/2019 4:59 Results for this DIFFERENTIAL AM CDT procedure are i n the results section. BASIC METABOLIC ESSIE 11/12/2019 4:59 Results for this PANEL (NA, K, CL, AM CDT procedure are in CO2, GLUCOSE, BUN, the resul ts CREATININE, CA) section. HEPATIC FUNCTION ESSIE 11/12/2019 4:59 Results for this PANEL ([id number]) AM CDT procedure are in (ALB,T.PRO,BILI the results T,BU/BC,ALT,AST,ALK section. PHOS) MAGNESIUM ESSIE 11/12/2019 4:59 Results for this AM CDT procedure are i n the results section. POCT GLUCOSE Routine 11/11/2019 11:35 Results for this (AUTOMATED) PM CDT procedure are i n the results section. CBC WITH Routine 11/11/2019 11:28 Results for this DIFFERENTIAL PM CDT procedure are i n the results section. CBC WITH Routine 11/11/2019 11:28 Results for this DIFFERENTIAL PM CDT procedure are i n the results section. POCT GLUCOSE Routine 11/11/2019 8:14 Results for this (AUTOMATED) PM CDT procedure are i n the results section. CBC WITH Routine 11/11/2019 4:54 Results for this DIFFERENTIAL PM CDT procedure are i n the results section. CBC WITH Routine 11/11/2019 4:54 Results for this DIFFERENTIAL PM CDT procedure are i n the results section. POCT GLUCOSE Routine 11/11/2019 4:49 Results for this (AUTOMATED) PM CDT procedure are i n the results section. TRANSFUSE PACKED RBC STAT 11/11/2019 4:25 PM CDT CLOSTRIDIUM Routine 11/11/2019 3:50 Results for this DIFFICILE TOXIN PM CDT procedure ar e in the results section. PREPARE PACKED RBC STAT 11/11/2019 1:52 Resul ts for this PM CDT procedure are i n the results section. HB ABO GROUPING Routine 11/11/2019 12:58 Results for this PM CDT procedure are i n the results section. POCT GLUCOSE Routine 11/11/2019 12:28 Results for this (AUTOMATED) PM CDT procedure are i n the results section. POCT GLUCOSE Routine 11/11/2019 11:24 Results for this (AUTOMATED) AM CDT procedure are i n the results section. CT ABDOMEN PELVIS W ESSIE 11/11/2019 10:05 Partial small bow el Results for this CONTRAST AM CDT obstruction procedure are i n the results section. CBC WITH Routine 11/11/2019 9:12 Results for this DIFFERENTIAL AM CDT procedure are i n the results section. FIBRINOGEN ESSIE 11/11/2019 9:12 Results for this AM CDT procedure are i n the results section. CBC WITH Routine 11/11/2019 9:12 Results for this DIFFERENTIAL AM CDT procedure are i n the results section. POCT GLUCOSE Routine 11/11/2019 7:45 Results for this (AUTOMATED) AM CDT procedure are i n the results section. N-TERMINAL PRO-BNP ESSIE 11/11/2019 5:42 Resul ts for this AM CDT procedure are i n the results section. COMP. METABOLIC ESSIE 11/11/2019 5:42 Results for this PANEL ([id number]) AM CDT procedure are in the results section. PHOSPHORUS ESSIE 11/11/2019 5:42 Results for this AM CDT procedure are i n the results section. CBC WITH Routine 11/11/2019 4:32 Results for this DIFFERENTIAL AM CDT procedure are i n the results section. CBC WITH Routine 11/11/2019 4:32 Results for this DIFFERENTIAL AM CDT procedure are i n the results section. POCT GLUCOSE Routine 11/11/2019 4:29 Results for this (AUTOMATED) AM CDT procedure are i n the results section. PROTHROMBIN TIME / ESSIE 11/11/2019 12:28 Resul ts for this INR AM CDT procedure are i n the results section. BASIC METABOLIC ESSIE 11/11/2019 12:28 Results for this PANEL (NA, K, CL, AM CDT procedure are in CO2, GLUCOSE, BUN, the resul ts CREATININE, CA) section. HEPATIC FUNCTION ESSIE 11/11/2019 12:28 Results for this PANEL ([id number]) AM CDT procedure are in (ALB,T.PRO,BILI the results T,BU/BC,ALT,AST,ALK section. PHOS) MAGNESIUM ESSIE 11/11/2019 12:28 Results for this AM CDT procedure are i n the results section. CBC WITH Routine 11/11/2019 12:27 Results for this DIFFERENTIAL AM CDT procedure are i n the results section. CBC WITH Routine 11/11/2019 12:27 Results for this DIFFERENTIAL AM CDT procedure are i n the results section. POCT GLUCOSE Routine 11/11/2019 12:02 Results for this (AUTOMATED) AM CDT procedure are i n the results section. POCT GLUCOSE Routine 11/10/2019 9:27 Results for this (AUTOMATED) PM CDT procedure are i n the results section. XR ABDOMEN 1 VW STAT 11/10/2019 9:15 Fever in adult Results for this PM CDT Partial small bowel procedur e are in obstruction the results Colitis section. Gastrointestinal hemorrhage with melena MRSA / MSSA SCREEN ESSIE 11/10/2019 8:23 Resul ts for this BY PCR, NARES PM CDT procedure are in the results section. CBC WITH Routine 11/10/2019 6:31 Results for this DIFFERENTIAL PM CDT procedure are i n the results section. LACTIC ACID WHOLE STAT 11/10/2019 6:31 Result s for this BLOOD PM CDT procedure are i n the results section. CBC WITH Routine 11/10/2019 6:31 Results for this DIFFERENTIAL PM CDT procedure are i n the results section. IRON PANEL Add-on 11/10/2019 6:31 Results for this PM CDT procedure are i n the results section. ALPHA FETOPROTEIN Routine 11/10/2019 6:31 Result s for this PM CDT procedure are i n the results section. POCT GLUCOSE Routine 11/10/2019 4:30 Results for this (AUTOMATED) PM CDT procedure are i n the results section. POCT GLUCOSE Routine 11/10/2019 11:10 Results for this (AUTOMATED) AM CDT procedure are i n the results section. POCT GLUCOSE Routine 11/10/2019 7:52 Results for this (AUTOMATED) AM CDT procedure are i n the results section. LACTIC ACID WHOLE STAT 11/10/2019 5:28 Result s for this BLOOD AM CDT procedure are i n the results section. POCT GLUCOSE Routine 11/10/2019 4:17 Results for this (AUTOMATED) AM CDT procedure are i n the results section. CBC WITH Routine 11/10/2019 12:57 Results for this DIFFERENTIAL AM CDT procedure are i n the results section. N-TERMINAL PRO-BNP Add-on 11/10/2019 12:57 Resul ts for this AM CDT procedure are i n the results section. GLYCOSYLATED Add-on 11/10/2019 12:57 Results for this HEMOGLOBIN (A1C) AM CDT procedure a re in the results section. CBC WITH Routine 11/10/2019 12:57 Results for this DIFFERENTIAL AM CDT procedure are i n the results section. BASIC METABOLIC Routine 11/10/2019 12:57 Results for this PANEL (NA, K, CL, AM CDT procedure are in CO2, GLUCOSE, BUN, the resul ts CREATININE, CA) section. HEPATIC FUNCTION Add-on 11/10/2019 12:57 Results for this PANEL ([id number]) AM CDT procedure are in (ALB,T.PRO,BILI the results T,BU/BC,ALT,AST,ALK section. PHOS) LACTIC ACID WHOLE STAT 11/10/2019 12:56 Result s for this BLOOD AM CDT procedure are i n the results section. POCT GLUCOSE Routine 11/09/2019 11:07 Results for this (AUTOMATED) PM CDT procedure are i n the results section. XR CHEST 1 VW STAT 11/09/2019 9:46 Fever in adult Results for this PM CDT procedure are i n the results section. URINE CULTURE STAT 11/09/2019 9:31 Fever in adult Results for this PM CDT procedure are i n the results section. LACTIC ACID WHOLE STAT 11/09/2019 9:02 Fever in adul t Results for this BLOOD PM CDT Melena procedure are in Vomiting and diarrhea the re sults section. BASIC METABOLIC STAT 11/09/2019 9:02 Hyperkalemia Results for this PANEL (NA, K, CL, PM CDT procedure are in CO2, GLUCOSE, BUN, the resul ts CREATININE, CA) section. URINALYSIS STAT 11/09/2019 7:31 Fever in adult Results for this PM CDT Melena procedure are in Vomiting and diarrhea the re sults section. EKG-12 LEAD Routine 11/09/2019 7:[address] ABDOMEN PELVIS W STAT 11/09/2019 7:23 Fever in ad ult Results for this CONTRAST PM CDT Melena procedure are in Vomiting and diarrhea the re sults section. EKG-12 LEAD STAT 11/09/2019 6:53 PM CDT BLOOD CULTURE SCREEN STAT 11/09/2019 6:18 Fever in a dult Results for this PM CDT Melena procedure are in Vomiting and diarrhea the re sults section. LACTIC ACID WHOLE STAT 11/09/2019 6:17 Fever in adul t Results for this BLOOD PM CDT Melena procedure are in Vomiting and diarrhea the re sults section. BLOOD CULTURE SCREEN STAT 11/09/2019 6:16 Fever in a dult Results for this PM CDT Melena procedure are in Vomiting and diarrhea the re sults section. CORONAVIRUS COVID-19 STAT 11/09/2019 6:15 Fever in a dult Results for this TESTING PM CDT Melena procedure are in Vomiting and diarrhea the re sults section. CBC WITH STAT 11/09/2019 6:15 Fever in adult Results for this DIFFERENTIAL PM CDT Melena procedure are in Vomiting and diarrhea the re sults section. HB ABO GROUPING STAT 11/09/2019 6:15 Fever in adult Results for this PM CDT Melena procedure are in Vomiting and diarrhea the re sults section. ACTIVATED PARTIAL STAT 11/09/2019 6:15 Fever in adul t Results for this THRMPLAS ROMAN PM CDT Melena procedure are in Vomiting and diarrhea the re sults section. PROTHROMBIN TIME / STAT 11/09/2019 6:15 Fever in kin lt Results for this INR PM CDT Melena procedure are in Vomiting and diarrhea the re sults section. COMP. METABOLIC STAT 11/09/2019 6:15 Fever in adult Results for this PANEL ([id number]) PM CDT Melena procedure are in Vomiting and diarrhea the re sults section. LIPASE STAT 11/09/2019 6:15 Fever in adult Results for this PM CDT Melena procedure are in Vomiting and diarrhea the re sults section. HOSPITAL ADMISSION Routine 11/09/2019 12:01 MISC - MEDICARE AM CDT PATIENTS RIGHTS IMPORTANT MESSAGE HOSPITAL ADMISSION Routine 11/09/2019 12:01 AM CDT EMERGENCY DEPARTMENT Routine 11/09/2019 12:01 DOCUMENTS AM CDT documented in this encounter Results POCT GLUCOSE (AUTOMATED) (11/16/2019 6:02 AM CDT) Pathologist Sig nature POCT GLU 272 (H) 70 - 110 mg/dL [facility] Specimen Blood Performing Organization Address [facility] [place] Phone Number [facility] CLIA: [id number], [address] [place] [phone] [facility] POCT GLUCOSE (AUTOMATED) (11/15/2019 10:12 PM CDT) Pathologist Sig nature POCT GLU 295 (H) 70 - 110 mg/dL [facility] Specimen Blood Performing Organization Address City/[facility] Phone Number [facility] CLIA: [id number], [address] [place] [phone] [facility] EXTRA TUBE RED (11/15/2019 8:40 PM CDT) Specimen Blood Performing Organization Address City/[facility]/Zipcode Phone Number [facility] CLIA: [id number], [address] [place] [address] [employer] EXTRA TUBE LT. BLUE (11/15/2019 8:40 PM CDT) Specimen Blood Performing Organization Address City/[facility]/Zipcode Phone Number [facility] CLIA: [id number], [address] [place] [address] EXTRA TUBE LAV (11/15/2019 8:40 PM CDT) Specimen Blood Performing Organization Address City/[facility]/Zipcode Phone Number [facility] CLIA: [id number], [address] [place] [address] 555 [facility] TROPONIN I (11/15/2019 8:38 PM CDT) Pathologist Sig [facility] TROPONIN I 0.003 <=0.034 ng/mL [facility] Specimen Blood - ARM, RIGHT Narrative Performed At Equal or Less than 0.034 ng/ml---Normal [facility] Note: Cardiac troponin begins to rise 3-4 hours after the onset of ischemia. Repeat in 4-6 hours if the sample w as drawn within 3-4 hours of the onset of the symptom and found normal. Between 0.035 and 0.120 ng/mL--- Borderline. Questiona ble myocardial injury or necrosis Note: Serial measurement may be necessary to confirm o r exclude the diagnosis of myocardial injury or necrosis ; Clinical correlation (symptoms, EKGs, imaging studies, and others) required; Repeat in 4-6 hours if clinically indicated. Equal or Higher than 0.121 ng/mL---Abnormal. Myocardia l Injury or Necrosis Likely Biotin has been reported to cause a negative bias, int erpret results relative to patient's use of biotin. Performing Organization Address [facility] Phone Number [facility] CLIA: [id number], [address] [place] [address] 555 [facility] PROLACTIN (11/15/2019 8:38 PM CDT) Pathologist Sig [facility] PROLACTIN 8.1 2.7 - 19.6 ng/mL [facility] Specimen Blood - ARM, RIGHT Performing Organization Address City/[facility]/Zipcode Phone Number [facility] CLIA: [id number], [address] [place] [address] 555 [facility] CREATINE KINASE (11/15/2019 8:38 PM CDT) Pathologist [facility] CK 35 33 - 194 U/L [facility] Specimen Blood - ARM, RIGHT Performing Organization Address [facility]/Zipcode Phone Number [facility] CLIA: [id number], [address] [place] [address] [address] [facility] MAGNESIUM (11/15/2019 8:38 PM CDT) Pathologist Sig nature MAGNESIUM 1.8 1.7 - 2.4 mg/dL [facility] Specimen Blood - ARM, RIGHT Performing Organization Address City/State/Zipcode Phone Number [facility] CLIA: [id number], [address] [place], [place] [address] [facility] BASIC METABOLIC PANEL (NA, K, CL, CO2, GLUCOSE, BUN, CREATININE, CA) (11/15/2019 8:38 PM CDT) Pathologist Sig nature NA 137 135 - 145 [facility] mmol/L SERVICES K 3.6 3.5 - 5.0 [facility] mmol/L SERVICES CL 104 98 - 108 mmol/L [facility] CO2 TOTAL 24 23 - 31 mmol/L [facility] AGAP 9 2 - 16 [facility] BUN 11 7 - 23 mg/dL [facility] GLUCOSE 321 (H) 70 - 110 mg/dL [facility] CREATININE 0.65 0.50 - 1.04 [facility] mg/dL SERVICES CALCIUM 8.2 (L) 8.6 - 10.6 [facility] mg/dL SERVICES eGFR Calculation 93.6 mL/min/1.73m2 [facility] (Non- SERVICES [place]ian) eGFR Calculation 113.5 mL/min/1.73m2 [facility] () SERVICES Specimen Blood - ARM, RIGHT Narrative Performed At Association of Glomerular Filtration Rate (GFR) and St aging [facility] of Kidney Disease* + + +------- ------ + | GFR (mL/min/1.73 m2) | With Kidney Damage | Wi thout Kidney Damage + + +------- ------ + | >90 | Stage one | Normal + + +------- ------ + | 60-89 | Stage two | Decreased GFR + + +------- ------ + | 30-59 | Stage three | Stage three + + +------- ------ + | 15-29 | Stage four | Stage four + + +------- ------ + | <15 (or dialysis) | Stage five | Stage five + + +------- ------ + *Each stage assumes the associated GFR level has been in effect for at least three months. Stages 1 to 5, wit h or without kidney disease, indicate chronic kidney disease. Notes: Determination of stages one and two (with eGFR >59mL/min/1.73 m2) requires estimation of kidney damag e for at least three months as defined by structural or func tional abnormalities of the kidney, manifested by either: Pathological abnormalities or Markers of kidney damage (including abnormalities in the composition of the blo od or urine or abnormalities in imaging tests) . Performing Organization Address City/State/Zipcode Phone Number [facility] CLIA: [id number], [address] [place] [address] [phone] [facility] POCT GLUCOSE (AUTOMATED) (11/15/2019 1:50 PM CDT) Pathologist Sig nature POCT GLU 310 (H) 70 - 110 mg/dL [facility] Specimen Blood Performing Organization Address [facility]/Zipcode Phone Number [facility] CLIA: [id number], [address] [place] [address] [facility] XR KUB (11/15/2019 11:40 AM CDT) Specimen Narrative Performed At EXAM: XR KUB PACS/VR/DOSE HISTORY: serial progression r/o toxic me gacolon, ,sbo r/o COMPARISON: None. FINDINGS: Gas is present throughout nondilated loo ps of small and large intestine, and obstruction is not suspected. Neither is toxic saud acolon demonstrated. The bowel gas pattern is normal and no opaque stones o r masses are found. Procedure Note [facility], Radiant Results Inft User - 2019 12:27 PM CDT EXAM: XR KUB HISTORY: serial progression r/o toxic me gacolon, ,sbo r/o COMPARISON: None. FINDINGS: Gas is present throughout nondilated loo ps of small and large intestine, and obstruction is not suspected. Neithe r is toxic megacolon demonstrated. The bowel gas pattern is normal and no o paque stones or masses are found. Performing Organization Address City/State/Zipcode Phone Number PACS/VR/DOSE POCT GLUCOSE (AUTOMATED) (11/15/2019 8:01 AM CDT) Pathologist Sig nature POCT GLU 270 (H) 70 - 110 mg/dL [facility] Specimen Blood Performing Organization Address City/[facility]/Zipcode Phone Number [facility] CLIA: [id number], [address] [place] [phone] [facility] CBC WITH DIFFERENTIAL (11/15/2019 4:36 AM CDT) WBC 5.62 4.30 - 11.10 [facility] 10*3/L SERVICES RBC 3.64 (L) 3.93 - 5.25 [facility] 10*6/L SERVICES HGB 10.9 (L) 11.6 - 15.0 [facility] g/dL SERVICES HCT 32.8 (L) 35.7 - 45.2 % [facility] SERVICES MCV 90.1 80.6 - 95.5 [facility] fL SERVICES MCH 29.9 25.9 - 32.8 [facility] pg SERVICES MCHC 33.2 31.6 - 35.1 [facility] g/dL SERVICES RDW-SD 54.9 (H) 39.0 - 49.9 [facility] fL SERVICES RDW-CV 17.2 (H) 12.0 - 15.5 % [facility] SERVICES PLT 45 (LL) 166 - 358 [facility] 10*3/L SERVICES MPV 9.9 9.5 - 12.9 fL [facility] SERVICES IPF % 4.4Comment: Platelet 1.3 - 7.7 % [facility] count measured by SERVICES fluorescence method. NRBC/100 WBC 0.0 0.0 - 10.0 [facility] /100 WBCs SERVICES NRBC x10^3 <0.01 10*3/L [facility] SERVICES GRAN MAT (NEUT) % 75.2 % [facility] SERVICES IMM GRAN % 1.40 % [facility] LYMPH % 15.7 % [facility] MONO % 6.8 % [facility] EOS % 0.7 % [facility] SERVICES BASO % 0.2 % [facility] SERVICES GRAN MAT 4.23 1.88 - 7.09 [facility] x10^3(ANC) 10*3/uL SERVICES IMM GRAN x10^3 0.08 (H) 0.00 - 0.06 [facility] 10*3/uL SERVICES LYMPH x10^3 0.88 (L) 1.32 - 3.29 [facility] 10*3/uL SERVICES MONO x10^3 0.38 0.33 - 0.92 [facility] 10*3/uL SERVICES EOS x10^3 0.04 0.03 - 0.39 [facility] 10*3/uL SERVICES BASO x10^3 <0.03 0.01 - 0.07 [facility] 10*3/uL SERVICES Specimen Blood - LINE, VENOUS Performing Organization Address City/State/Zipcode Phone Number [facility] CLIA: [id number], [address] [place], [place] [address] [facility] Basic Metabolic Panel (NA, K, CL, CO2, Glucose, BUN, Creatinine, CA) (11/15/2019 4:36 AM CDT) NA 137 135 - 145 [facility] mmol/L SERVICES K 3.7Comment: 3.5 - 5.0 [facility] Slight hemolysis mmol/L SERVICES CL 105 98 - 108 [facility] mmol/L SERVICES CO2 TOTAL 25 23 - 31 [facility] mmol/L SERVICES AGAP 7 2 - 16 [facility] SERVICES BUN 10Comment: Slight 7 - 23 mg/dL [facility] hemolysis SERVICES GLUCOSE 307 (H) 70 - 110 [facility] mg/dL SERVICES CREATININE 0.56 0.50 - 1.04 [facility] mg/dL SERVICES CALCIUM 7.4 (L) 8.6 - 10.6 [facility] mg/dL SERVICES eGFR Calculation 111.2 mL/min/1.73m2 [facility] (Non- SERVICES [place]) eGFR Calculation 134.8 mL/min/1.73m2 [facility] () SERVICES Specimen Blood - LINE, VENOUS Narrative Performed At Association of Glomerular Filtration Rate (GFR) and St aging [facility] of Kidney Disease* + + +------- ------ + | GFR (mL/min/1.73 m2) | With Kidney Damage | Fady rivas Kidney Damage + + +------- ------ + | >90 | Stage one | Normal + + +------- ------ + | 60-89 | Stage two | Decreased GFR + + +------- ------ + | 30-59 | Stage three | Stage three + + +------- ------ + | 15-29 | Stage four | Stage four + + +------- ------ + | <15 (or dialysis) | Stage five | Stage five + + +------- ------ + *Each stage assumes the associated GFR level has been in effect for at least three months. Stages 1 to 5, wit h or without kidney disease, indicate chronic kidney disease. Notes: Determination of stages one and two (with eGFR >59mL/min/1.73 m2) requires estimation of kidney damag e for at least three months as defined by structural or func tional abnormalities of the kidney, manifested by either: Pathological abnormalities or Markers of kidney damage (including abnormalities in the composition of the blo od or urine or abnormalities in imaging tests) . Performing Organization Address City/[facility] Phone Number [facility] CLIA: [id number], [address] [place] [phone] [facility] POCT GLUCOSE (AUTOMATED) (11/14/2019 9:59 PM CDT) Pathologist Sig nature POCT GLU 285 (H) 70 - 110 mg/dL [facility] Specimen Blood Performing Organization Address [facility] Phone Number [facility] CLIA: [id number], [address] [place] [address] [facility] POCT GLUCOSE (AUTOMATED) (11/14/2019 4:18 PM CDT) Pathologist Sig nature POCT GLU 337 (H) 70 - 110 mg/dL [facility] Specimen Blood Performing Organization Address [facility] Phone Number [facility] CLIA: [id number], [address] [place] [address] [facility] XR KUB (11/14/2019 12:04 PM CDT) Specimen Impressions Performed At PACS/VR/DOSE No radiographic findings to suggest with toxic megacol on. Narrative Performed At EXAM: XR KUB PACS/VR/DOSE COMPARISON: 11/13/2019. HISTORY: monitor for toxic megacolon FINDINGS: The colon appears normally dilated with preservation of the haustral markings and no evidence of mucosal tommy a. Air is noted throughout the colon to the level of the rectum. The anupama wel gas pattern is overall nonobstructive. No intra-abdominal free air seen. Cholecystectomy clips are present. The b cass structures are grossly unremarkable. Procedure Note [facility], Radiant Results Inft User - 2019 12:44 PM CDT EXAM: XR KUB COMPARISON: 11/13/2019. HISTORY: monitor for toxic megacolon FINDINGS: The colon appears normally dilated with preservation of the haustral markings and no evidence of mucosal tommy a. Air is noted throughout the colon to the level of the rectum. The anupama wel gas pattern is overall nonobstructive. No intra-abdominal free air seen. Cholecystectomy clips are present. The b cass structures are grossly unremarkable. IMPRESSION No radiographic findings to suggest with toxic megacolon. Performing Organization Address City/State/Zipcode Phone Number PACS/VR/DOSE POCT GLUCOSE (AUTOMATED) (11/14/2019 11:44 AM CDT) Pathologist Sig nature POCT GLU 319 (H)Comment: 70 - 110 mg/dL [facility] Not[facility] Specimen Blood Performing Organization Address City/State/Zipcode Phone Number [facility] CLIA: [id number], [address] [place], [place] 7755 [facility] CBC WITH DIFFERENTIAL (11/14/2019 5:03 AM CDT) WBC 5.60 4.30 - 11.10 [facility] 10*3/L SERVICES RBC 3.69 (L) 3.93 - 5.25 [facility] 10*6/L SERVICES HGB 10.9 (L) 11.6 - 15.0 [facility] g/dL SERVICES HCT 32.8 (L) 35.7 - 45.2 % [facility] SERVICES MCV 88.9 80.6 - 95.5 [facility] fL SERVICES MCH 29.5 25.9 - 32.8 [facility] pg SERVICES MCHC 33.2 31.6 - 35.1 [facility] g/dL SERVICES RDW-SD 53.9 (H) 39.0 - 49.9 [facility] fL SERVICES RDW-CV 17.2 (H) 12.0 - 15.5 % [facility] SERVICES PLT 45 (LL) 166 - 358 [facility] 10*3/L SERVICES MPV 10.0 9.5 - 12.9 fL [facility] SERVICES IPF % 3.2Comment: Platelet 1.3 - 7.7 % [facility] count measured by SERVICES fluorescence method. NRBC/100 WBC 0.0 0.0 - 10.0 [facility] /100 WBCs SERVICES NRBC x10^3 <0.01 10*3/L [facility] SERVICES GRAN MAT (NEUT) % 73.9 % [facility] SERVICES IMM GRAN % 1.60 % [facility] LYMPH % 16.1 % [facility] MONO % 6.6 % [facility] EOS % 1.4 % [facility] SERVICES BASO % 0.4 % [facility] SERVICES GRAN MAT 4.14 1.88 - 7.09 [facility] x10^3(ANC) 10*3/uL SERVICES IMM GRAN x10^3 0.09 (H) 0.00 - 0.06 [facility] 10*3/uL SERVICES LYMPH x10^3 0.90 (L) 1.32 - 3.29 [facility] 10*3/uL SERVICES MONO x10^3 0.37 0.33 - 0.92 [facility] 10*3/uL SERVICES EOS x10^3 0.08 0.03 - 0.39 [facility] 10*3/uL SERVICES BASO x10^3 <0.03 0.01 - 0.07 [facility] 10*3/uL SERVICES BANDS Increased (A) [facility] Specimen Blood - LINE, VENOUS Performing Organization Address [facility] Phone Number [facility] CLIA: [id number], [address] [place] [address] 555 [facility] Hepatic Function Panel (ALB, T.PRO, BILI T, BU/BC, ALT, AST, ALK, PHOS) (11/14/2019 5:03 AM CDT) Pathologist Sig nature TOTAL BILI 1.2 (H) 0.1 - 1.1 mg/dL [facility] BILI UNCON 0.7 0.1 - 1.1 mg/dL [facility] BILI CONJ 0.0 0.0 - 0.3 mg/dL [facility] T PROTEIN 6.1 (L) 6.3 - 8.2 g/dL [facility] ALBUMIN 2.7 (L) 3.5 - 5.0 g/dL [facility] ALK PHOS 92 34 - 122 U/L [facility] ALTv 20 5 - 35 U/L [facility] AST(SGOT) 37 13 - 40 U/L [facility] Specimen Blood - LINE, VENOUS Performing Organization Address [facility] Phone Number [facility] CLIA: [id number], [address] [place] [address] [phone] [facility] Magnesium Serum (11/14/2019 5:03 AM CDT) Pathologist Sig nature MAGNESIUM 1.5 (L) 1.7 - 2.4 mg/dL [facility] Specimen Blood - LINE, VENOUS Performing Organization Address City/State/Zipcode Phone Number [facility] CLIA: [id number], [address] [place], [place] [address] [facility] Basic Metabolic Panel (NA, K, CL, CO2, Glucose, BUN, Creatinine, CA) (11/14/2019 5:03 AM CDT) NA 136 135 - 145 [facility] mmol/L SERVICES K 3.3 (L)Comment: 3.5 - 5.0 [facility] Slight hemolysis mmol/L SERVICES CL 105 98 - 108 [facility] mmol/L SERVICES CO2 TOTAL 25 23 - 31 [facility] mmol/L SERVICES AGAP 6 2 - 16 [facility] SERVICES BUN 12Comment: Slight 7 - 23 mg/dL [facility] hemolysis SERVICES GLUCOSE 275 (H) 70 - 110 [facility] mg/dL SERVICES CREATININE 0.60 0.50 - 1.04 [facility] mg/dL SERVICES CALCIUM 7.4 (L) 8.6 - 10.6 [facility] mg/dL SERVICES eGFR Calculation 102.7 mL/min/1.73m2 [facility] (Non- SERVICES [place]ian) eGFR Calculation 124.4 mL/min/1.73m2 [facility] () SERVICES Specimen Blood - LINE, VENOUS Narrative Performed At Association of Glomerular Filtration Rate (GFR) and St aging [facility] of Kidney Disease* + + +------- ------ + | GFR (mL/min/1.73 m2) | With Kidney Damage | Wi thout Kidney Damage + + +------- ------ + | >90 | Stage one | Normal + + +------- ------ + | 60-89 | Stage two | Decreased GFR + + +------- ------ + | 30-59 | Stage three | Stage three + + +------- ------ + | 15-29 | Stage four | Stage four + + +------- ------ + | <15 (or dialysis) | Stage five | Stage five + + +------- ------ + *Each stage assumes the associated GFR level has been in effect for at least three months. Stages 1 to 5, wit h or without kidney disease, indicate chronic kidney disease. Notes: Determination of stages one and two (with eGFR >59mL/min/1.73 m2) requires estimation of kidney damag e for at least three months as defined by structural or func tional abnormalities of the kidney, manifested by either: Pathological abnormalities or Markers of kidney damage (including abnormalities in the composition of the blo od or urine or abnormalities in imaging tests) . Performing Organization Address City/[facility] Phone Number [facility] CLIA: [id number], [address] [place] [address] [phone] [facility] Prothrombin Time / INR (11/14/2019 5:03 AM CDT) Pathologist [facility] PROTIME PATIENT 14.3 (H) 10.1 - 12.6 [facility] Seconds SERVICES INR 1.3Comment: Normal [facility] INR <1.1; Warfarin SERVICES Therapeutic range 2.0 to 3.0 or 2.5 to 3.5, depending upon the indications. Specimen Blood - LINE, VENOUS Performing Organization Address [facility] Phone Number [facility] CLIA: [id number], [address] [place] [address] 555 [facility] POCT GLUCOSE (AUTOMATED) (11/13/2019 10:05 PM CDT) [facility] POCT GLU 274 (H) 70 - 110 mg/dL [facility] Specimen Blood Performing Organization Address [facility] Phone Number [facility] CLIA: [id number], [address] [place] [address] [facility] CBC WITH DIFFERENTIAL (11/13/2019 6:03 PM CDT) Pathologist [facility] WBC 8.24 4.30 - 11.10 [facility] 10*3/L SERVICES RBC 3.91 (L) 3.93 - 5.25 [facility] 10*6/L SERVICES HGB 11.5 (L) 11.6 - 15.0 [facility] g/dL SERVICES HCT 35.1 (L) 35.7 - 45.2 % [facility] SERVICES MCV 89.8 80.6 - 95.5 [facility] fL SERVICES MCH 29.4 25.9 - 32.8 [facility] pg SERVICES MCHC 32.8 31.6 - 35.1 [facility] g/dL SERVICES RDW-SD 55.3 (H) 39.0 - 49.9 [facility] fL SERVICES RDW-CV 17.3 (H) 12.0 - 15.5 % [facility] SERVICES PLT 55 (L) 166 - 358 [facility] 10*3/L SERVICES MPV 10.2 9.5 - 12.9 fL [facility] SERVICES IPF % 2.0Comment: Platelet 1.3 - 7.7 % [facility] count measured by SERVICES fluorescence method. NRBC/100 WBC 0.0 0.0 - 10.0 [facility] /100 WBCs SERVICES NRBC x10^3 <0.01 10*3/L [facility] SERVICES GRAN MAT (NEUT) % 78.7 % [facility] SERVICES IMM GRAN % 1.30 % [facility] SERVICES LYMPH % 12.3 % [facility] SERVICES MONO % 6.4 % [facility] SERVICES EOS % 1.2 % [facility] SERVICES BASO % 0.1 % [facility] SERVICES GRAN MAT 6.48 1.88 - 7.09 [facility] x10^3(ANC) 10*3/uL SERVICES IMM GRAN x10^3 0.11 (H) 0.00 - 0.06 [facility] 10*3/uL SERVICES LYMPH x10^3 1.01 (L) 1.32 - 3.29 [facility] 10*3/uL SERVICES MONO x10^3 0.53 0.33 - 0.92 [facility] 10*3/uL SERVICES EOS x10^3 0.10 0.03 - 0.39 [facility] 10*3/uL SERVICES BASO x10^3 <0.03 0.01 - 0.07 [facility] 10*3/uL SERVICES Specimen Blood - ARM, RIGHT Performing Organization Address City/State/Zipcode Phone Number [facility] CLIA: [id number], [address] [place] [address] [phone] [facility] POCT GLUCOSE (AUTOMATED) (11/13/2019 5:57 PM CDT) [facility] POCT GLU 181 (H) 70 - 110 mg/dL [facility] Specimen Blood Performing Organization Address City/[facility]/Zipcode Phone Number [facility] CLIA: [id number], [address] [place] [address] [facility] XR KUB (11/13/2019 12:01 PM CDT) Specimen Impressions Performed At PACS/VR/DOSE Nonspecific, mild gaseous distention of large and small bowel with no evidence of mechanical obstruction. Right-sided pleural effusion. Narrative Performed At EXAM: XR KUB PACS/VR/DOSE COMPARISON: CT dated 11/12/2019. HISTORY: partial SBO, monitor progressio n FINDINGS: Nonspecific loops of large and small bowel demonstrate gaseous distention with no localizing findings to suggest o bstruction. There is air noted throughout the colon into the distal col on. No intra-abdominal free air is seen. Cholecystectomy changes are noted. Incidental note of a right-sided pleural effusion. No acute or aggressive bony lesions. Procedure Note [facility], Radiant Results Inft User - 2019 2:23 PM CDT EXAM: XR KUB COMPARISON: CT dated 11/12/2019. HISTORY: partial SBO, monitor progressio n FINDINGS: Nonspecific loops of large and small bow el demonstrate gaseous distention with no localizing findings to suggest o bstruction. There is air noted throughout the colon into the distal col on. No intra-abdominal free air is seen. Cholecystectomy changes are noted. Incidental note of a right-sided pleural effusion. No acute or aggressive bony lesions. IMPRESSION Nonspecific, mild gaseous distention of large and small bowel with no evidence of mechanical obstruction. Right-sided pleural effusion. Performing Organization Address City/State/Zipcode Phone Number PACS/VR/DOSE POCT GLUCOSE (AUTOMATED) (11/13/2019 11:52 AM CDT) Pathologist Sig nature POCT GLU 181 (H) 70 - 110 mg/dL [facility] Specimen Blood Performing Organization Address City/State/Zipcode Phone Number [facility] CLIA: [id number], [address] [place], [place] [address] [facility] PROFILE / HEMOGRAM (11/13/2019 10:06 AM CDT) WBC 6.58 4.30 - 11.10 [facility] 10*3/L SERVICES RBC 3.42 (L) 3.93 - 5.25 [facility] 10*6/L SERVICES HGB 10.2 (L) 11.6 - 15.0 [facility] g/dL SERVICES HCT 30.5 (L) 35.7 - 45.2 % [facility] SERVICES MCH 29.8 25.9 - 32.8 pg [facility] SERVICES MCV 89.2 80.6 - 95.5 fL [facility] SERVICES MCHC 33.4 31.6 - 35.1 [facility] g/dL SERVICES PLT 45 (LL) 166 - 358 [facility] 10*3/L SERVICES MPV 9.0 (L) 9.5 - 12.9 fL [facility] SERVICES RDW-CV 17.5 (H) 12.0 - 15.5 % [facility] SERVICES RDW-SD 55.7 (H) 39.0 - 49.9 fL [facility] SERVICES NRBC x10^3 0.02 10*3/L [facility] SERVICES NRBC/100 WBC 0.3 0.0 - 10.0 [facility] /100 WBCs SERVICES IPF % 3.2Comment: Platelet 1.3 - 7.7 % [facility] count measured by SERVICES fluorescence method. Specimen Blood - VENOUS Performing Organization Address City/[facility]/Zipcode Phone Number [facility] CLIA: [id number], [address] [place] [phone] [facility] POCT GLUCOSE (AUTOMATED) (11/13/2019 7:54 AM CDT) Pathologist [facility] POCT GLU 151 (H) 70 - 110 mg/dL [facility] Specimen Blood Performing Organization Address City/[facility] Phone Number [facility] CLIA: [id number], [address] [place] [address] [facility] FERRITIN SERUM (11/13/2019 4:25 AM CDT) Pathologist [facility] Sensdata FERRITIN 382.0 (H) 11.0 - 264.0 ng/mL [facility] SERVIC ES Specimen Blood - VENOUS Narrative Performed At [facility] has been reported to cause a negative bias, int erpret [facility] results relative to patient's use of biotin. Performing Organization Address City/[facility] Cent[facility] Phone Number [facility] CLIA: [id number], [address] [place] [address] [phone] Hepatic Function Panel (ALB, T.PRO, BILI T, BU/BC, ALT, AST, ALK, PHOS) (11/13/2019 4:25 AM CDT) Pathologist Sig nature TOTAL BILI 1.7 (H) 0.1 - 1.1 mg/dL [facility] BILI UNCON 1.3 (H) 0.1 - 1.1 mg/dL [facility] BILI CONJ 0.0 0.0 - 0.3 mg/dL [facility] T PROTEIN 5.7 (L) 6.3 - 8.2 g/dL [facility] SERVICES ALBUMIN 2.5 (L) 3.5 - 5.0 g/dL [facility] ALK PHOS 77 34 - 122 U/L [facility] ALTv 20 5 - 35 U/L [facility] AST(SGOT) 33 13 - 40 U/L [facility] Specimen Blood - VENOUS Performing Organization Address City/State/Zipcode Phone Number [facility] CLIA: [id number], [address] [place] [address] [phone] [place] [address] Magnesium Serum (11/13/2019 4:25 AM CDT) Pathologist Sig nature MAGNESIUM 2.3 1.7 - 2.4 mg/dL [facility] Specimen Blood - VENOUS Performing Organization Address City/[facility] Phone Number [facility] CLIA: [id number], [address] [place] [address] [phone] [facility] Basic Metabolic Panel (NA, K, CL, CO2, Glucose, BUN, Creatinine, CA) (11/13/2019 4:25 AM CDT) Pathologist Sig nature NA 136 135 - 145 [facility] mmol/L SERVICES K 3.7 3.5 - 5.0 [facility] mmol/L SERVICES CL 109 (H) 98 - 108 mmol/L [facility] SERVICES CO2 TOTAL 21 (L) 23 - 31 mmol/L [facility] SERVICES AGAP 6 2 - 16 [facility] BUN 16 7 - 23 mg/dL [facility] SERVICES GLUCOSE 151 (H) 70 - 110 mg/dL [facility] CREATININE 0.59 0.50 - 1.04 [facility] mg/dL SERVICES CALCIUM 7.1 (L) 8.6 - 10.6 [facility] mg/dL SERVICES eGFR Calculation 104.7 mL/min/1.73m2 [facility] (Non- SERVICES [place]ian) eGFR Calculation 126.9 mL/min/1.73m2 [facility] () SERVICES Specimen Blood - VENOUS Narrative Performed At Association of Glomerular Filtration Rate (GFR) and St aging [facility] of Kidney Disease* + + +------- ------ + | GFR (mL/min/1.73 m2) | With Kidney Damage | Wi thout Kidney Damage + + +------- ------ + | >90 | Stage one | Normal + + +------- ------ + | 60-89 | Stage two | Decreased GFR + + +------- ------ + | 30-59 | Stage three | Stage three + + +------- ------ + | 15-29 | Stage four | Stage four + + +------- ------ + | <15 (or dialysis) | Stage five | Stage five + + +------- ------ + *Each stage assumes the associated GFR level has been in effect for at least three months. Stages 1 to 5, wit h or without kidney disease, indicate chronic kidney disease. Notes: Determination of stages one and two (with eGFR >59mL/min/1.73 m2) requires estimation of kidney damag e for at least three months as defined by structural or func tional abnormalities of the kidney, manifested by either: Pathological abnormalities or Markers of kidney damage (including abnormalities in the composition of the blo od or urine or abnormalities in imaging tests) . Performing Organization Address City/State/Zipcode Phone Number [facility] CLIA: [id number], [address] [place], [place] [address] [facility] Prothrombin Time / INR (11/13/2019 4:25 AM CDT) Pathologist [facility] PROTIME PATIENT 13.0 (H) 10.1 - 12.6 [facility] Seconds SERVICES INR 1.1Comment: Normal [facility] INR <1.1; Warfarin SERVICES Therapeutic range 2.0 to 3.0 or 2.5 to 3.5, depending upon the indications. Specimen Blood - VENOUS Performing Organization Address City/State/Zipcode Phone Number [facility] CLIA: [id number], [address] [place], [place] [address] [facility] PROFILE / HEMOGRAM (11/13/2019 4:25 AM CDT) [facility] WBC 6.40 4.30 - 11.10 [facility] 10*3/L SERVICES RBC 3.38 (L) 3.93 - 5.25 [facility] 10*6/L SERVICES HGB 9.9 (L) 11.6 - 15.0 [facility] g/dL SERVICES HCT 30.1 (L) 35.7 - 45.2 % [facility] MCH 29.3 25.9 - 32.8 pg [facility] MCV 89.1 80.6 - 95.5 fL [facility] SERVICES MCHC 32.9 31.6 - 35.1 [facility] g/dL SERVICES PLT 44 (LL) 166 - 358 [facility] 10*3/L SERVICES MPV 8.4 (L) 9.5 - 12.9 fL [facility] SERVICES RDW-CV 17.5 (H) 12.0 - 15.5 % [facility] RDW-SD 56.2 (H) 39.0 - 49.9 fL [facility] NRBC x10^3 0.02 10*3/L [facility] NRBC/100 WBC 0.3 0.0 - 10.0 [facility] /100 WBCs SERVICES IPF % 2.0Comment: Platelet 1.3 - 7.7 % [facility] count measured by SERVICES fluorescence method. Specimen Blood - VENOUS Performing Organization Address City/State/Zipcode Phone Number [facility] CLIA: [id number], [address] [place] [address] [phone] [facility] POCT GLUCOSE (AUTOMATED) (11/12/2019 11:32 PM CDT) Pathologist [facility] nature POCT GLU 164 (H) 70 - 110 mg/dL [facility] Specimen Blood Performing Organization Address City/State/Zipcode Phone Number [facility] CLIA: [id number], [address] [place] [address] [facility] PROFILE / HEMOGRAM (11/12/2019 10:14 PM CDT) WBC 7.61 4.30 - 11.10 [facility] 10*3/L SERVICES RBC 3.55 (L) 3.93 - 5.25 [facility] 10*6/L SERVICES HGB 10.4 (L) 11.6 - 15.0 [facility] g/dL SERVICES HCT 31.4 (L) 35.7 - 45.2 % [facility] MCH 29.3 25.9 - 32.8 pg [facility] MCV 88.5 80.6 - 95.5 fL [facility] MCHC 33.1 31.6 - 35.1 [facility] g/dL SERVICES PLT 50 (LL) 166 - 358 [facility] 10*3/L SERVICES MPV 9.1 (L) 9.5 - 12.9 fL [facility] RDW-CV 17.6 (H) 12.0 - 15.5 % [facility] RDW-SD 56.1 (H) 39.0 - 49.9 fL [facility] NRBC x10^3 0.03 10*3/L [facility] NRBC/100 WBC 0.4 0.0 - 10.0 [facility] /100 WBCs SERVICES IPF % 1.9Comment: Platelet 1.3 - 7.7 % [facility] count measured by SERVICES fluorescence method. Specimen Blood - VENOUS Performing Organization Address City/State/Zipcode Phone Number [facility] CLIA: [id number], [address] [place] [address] 555 [facility] POCT GLUCOSE (AUTOMATED) (11/12/2019 7:42 PM CDT) Pathologist Sig nature POCT GLU 201 (H) 70 - 110 mg/dL [facility] Specimen Blood Performing Organization Address City/[facility] Phone Number [facility] CLIA: [id number], [address] [place] [phone] [facility] POCT GLUCOSE (AUTOMATED) (11/12/2019 4:27 PM CDT) Pathologist Sig nature POCT GLU 135 (H) 70 - 110 mg/dL [facility] Specimen Blood Performing Organization Address City/[facility] Phone Number [facility] CLIA: [id number], [address] [place] [address] [facility] MAGNESIUM (11/12/2019 4:15 PM CDT) Pathologist Sig nature MAGNESIUM 2.7 (H) 1.7 - 2.4 mg/dL [facility] Specimen Blood - VENOUS Performing Organization Address City/State/Zipcode Phone Number [facility] CLIA: [id number], [address] [place], [place] [address] [facility] BASIC METABOLIC PANEL (NA, K, CL, CO2, GLUCOSE, BUN, CREATININE, CA) (11/12/2019 4:15 PM CDT) Pathologist Sig nature NA 136 135 - 145 [facility] mmol/L SERVICES K 4.1 3.5 - 5.0 [facility] mmol/L SERVICES CL 107 98 - 108 mmol/L [facility] CO2 TOTAL 24 23 - 31 mmol/L [facility] AGAP 5 2 - 16 [facility] BUN 18 7 - 23 mg/dL [facility] GLUCOSE 133 (H) 70 - 110 mg/dL [facility] CREATININE 0.60 0.50 - 1.04 [facility] mg/dL SERVICES CALCIUM 7.4 (L) 8.6 - 10.6 [facility] mg/dL SERVICES eGFR Calculation 102.7 mL/min/1.73m2 [facility] (Non- SERVICES [place]ian) eGFR Calculation 124.4 mL/min/1.73m2 [facility] () SERVICES Specimen Blood - VENOUS Narrative Performed At Association of Glomerular Filtration Rate (GFR) and St aging [facility] SERVICES of Kidney Disease* + + +------- ------ + | GFR (mL/min/1.73 m2) | With Kidney Damage | Wi thout Kidney Damage + + +------- ------ + | >90 | Stage one | Normal + + +------- ------ + | 60-89 | Stage two | Decreased GFR + + +------- ------ + | 30-59 | Stage three | Stage three + + +------- ------ + | 15-29 | Stage four | Stage four + + +------- ------ + | <15 (or dialysis) | Stage five | Stage five + + +------- ------ + *Each stage assumes the associated GFR level has been in effect for at least three months. Stages 1 to 5, wit h or without kidney disease, indicate chronic kidney disease. Notes: Determination of stages one and two (with eGFR >59mL/min/1.73 m2) requires estimation of kidney damag e for at least three months as defined by structural or func tional abnormalities of the kidney, manifested by either: Pathological abnormalities or Markers of kidney damage (including abnormalities in the composition of the blo od or urine or abnormalities in imaging tests) . Performing Organization Address City/State/Zipcode Phone Number [facility] CLIA: [id number], [address] [place] [address] [address] [facility] PROFILE / HEMOGRAM (11/12/2019 4:15 PM CDT) WBC 9.67 4.30 - 11.10 [facility] 10*3/L SERVICES RBC 3.97 3.93 - 5.25 [facility] 10*6/L SERVICES HGB 11.4 (L) 11.6 - 15.0 [facility] g/dL SERVICES HCT 35.5 (L) 35.7 - 45.2 % [facility] SERVICES MCH 28.7 25.9 - 32.8 pg [facility] SERVICES MCV 89.4 80.6 - 95.5 fL [facility] MCHC 32.1 31.6 - 35.1 [facility] g/dL SERVICES PLT 60 (L) 166 - 358 [facility] 10*3/L SERVICES MPV 9.0 (L) 9.5 - 12.9 fL [facility] SERVICES RDW-CV 17.5 (H) 12.0 - 15.5 % [facility] SERVICES RDW-SD 56.3 (H) 39.0 - 49.9 fL [facility] SERVICES NRBC x10^3 0.04 10*3/L [facility] SERVICES NRBC/100 WBC 0.4 0.0 - 10.0 [facility] /100 WBCs SERVICES IPF % 2.3Comment: Platelet 1.3 - 7.7 % [facility] count measured by SERVICES fluorescence method. Specimen Blood - VENOUS Performing Organization Address City/State/Zipcode Phone Number [facility] CLIA: [id number], [address] [place] [address] 555 [facility] POCT GLUCOSE (AUTOMATED) (11/12/2019 11:53 AM CDT) Pathologist Sig nature POCT GLU 127 (H) 70 - 110 mg/dL [facility] Specimen Blood Performing Organization Address City/[facility]/Zipcode Phone Number [facility] CLIA: [id number], [address] [place] [address] [facility] PROFILE / HEMOGRAM - 30 minutes after transfusion of each RBC (11/12/2019 10:58 AM CDT) WBC 9.97 4.30 - 11.10 [facility] 10*3/L SERVICES RBC 3.90 (L) 3.93 - 5.25 [facility] 10*6/L SERVICES HGB 11.3 (L) 11.6 - 15.0 [facility] g/dL SERVICES HCT 35.1 (L) 35.7 - 45.2 % [facility] SERVICES MCH 29.0 25.9 - 32.8 pg [facility] SERVICES MCV 90.0 80.6 - 95.5 fL [facility] SERVICES MCHC 32.2 31.6 - 35.1 [facility] g/dL SERVICES PLT 40 (LL) 166 - 358 [facility] 10*3/L SERVICES MPV 9.1 (L) 9.5 - 12.9 fL [facility] SERVICES RDW-CV 17.2 (H) 12.0 - 15.5 % [facility] SERVICES RDW-SD 57.1 (H) 39.0 - 49.9 fL [facility] SERVICES NRBC x10^3 0.03 10*3/L [facility] SERVICES NRBC/100 WBC 0.3 0.0 - 10.0 [facility] /100 WBCs SERVICES IPF % 2.7Comment: Platelet 1.3 - 7.7 % [facility] count measured by SERVICES fluorescence method. Specimen Blood - LINE, VENOUS Performing Organization Address City/State/Zipcode Phone Number [facility] CLIA: [id number], [address] [place] [address] 555 [facility] Prepare Platelets (in units): 1 Units~Indication: 2) Platelets < 50,000 with active hemorrhage orpotential to bleed from invasive procedure (11/12/2019 10:46 AM CDT) Unit Blood Type A Pos LAB ISBT Blood Type Code 6200 LAB Unit Number [id number] LAB Blood Expiration Date & LAB Time Status Information Issued LAB Product Identification Platelets LAB Product Code [id number] LAB Comment: Performed at [facility] Services - [facility] Blood Bank [address] [facility], [place], [place] [address] Toll Free: [phone] [place] No. [id number] Specimen Performing Organization Address City/State/Zipcode Phone Number BLD LAB CT ANGIOGRAM ABDOMEN/PELVIS (11/12/2019 9:33 AM CDT) Specimen Impressions Performed At PACS/VR/DOSE Study is limited secondary to presence o f intraluminal contrast on the noncontrast study from the prior CT scan . No active extravasation of contrast seen in the area where there was no contrast on the noncontrast CT from today. no arterial secondary signs aneurysm, ea rly draining vein ( AVM ) seen Changes consistent right and transvers e colon with mild dilatation of transverse colon with air fluid levels . Consider infe ctious colitis. No changes of ischemia or vessel occlusion. Small sliding hiatal hernia. Trace perihepatic and pericolonic ascite s, likely reactive. Cirrhosis without focal hepatic lesion with sequela of portal hypertension including splenomegaly and gastroesophag eal varices. Preliminary Report Dictated by Resident: Yovany Mancuso MD., have reviewed this study and agree with the above report. Narrative Performed At EXAM: CT ABDOMEN AND PELVIS WITH AND WIT HOUT CONTRAST PACS/VR/DOSE HISTORY: GI bleed With and without contr ast COMPARISON: November 11, 2019 CT abdomen an d pelvis with contrast. DOSE: 3760.82 mGy-cm TECHNIQUE AND FINDINGS: Contiguous axial imaging from the level of the lung bases through the pubic symphysis was pe rformed before and after the uncomplicated administration of 120 mL of intravenous Omnipaque contrast. Precontrast, arterial, venous and 90 sec onds delayed phase images were obtained according to the GI bleed kitri col. Coronal and sagittal reconstructions were obtained. Auto mA and/or iterative reconstruction were used to reduce radiation dose. FINDINGS: Suboptimal study secondary to presence o f contrast from the previous CT scan from 11/11/2019 within the bowel lum en at various sites on the precontrast study.. LOWER THORAX: Bibasilar atelectasis. Sca ttered interstitial septal thickening, bronchiectasis and bronchial wall thickeni ng. No cardiomegaly. LIVER: Cirrhotic liver morphology with nodular contour s and hypertrophy of the segment 4, 1 2 and 3. A nonenhancing 3.7 cm segmen t 5 oblong hypodense structure measures simple cyst attenuati on. Mild periportal edema is present. 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 SPLEEN: Splenomegaly at 19.5 cm. PANCREAS: No ductal dilation or masses. ADRENAL GLANDS: No adrenal nodules. KIDNEYS: No hydronephrosis, stones, or m asses. 2.4 cm right interpolar simple cyst. PERITONEUM AND RETROPERITONEUM: No free air. Trace vol ume perihepatic and pericolonic simple ascites. LYMPH NODES: No lymphadenopathy. GI TRACT: Small sliding hiatal hernia. Again noted is extensive prominent ascending colon, and transverse colon mucosal enhanc ement and subjacent fatty stranding, with relatively sparing of left colon. Dilatation of transverse colon and air fluid levels. A ppendix is nonvisualized. PELVIS/BLADDER: Urinary bladder is under distended with concern wall thickening secondary to underdistention. VESSELS: Mild scattered aortoiliac ather osclerotic plaquing and calcification results in no significant stenosis of the branch vessel ostia. Small gastroesophageal varices.. BONES AND SOFT TISSUES: No suspicious ly tic or sclerotic bony lesions. Procedure Note [facility], Radiant Results Inft User - 2019 3:22 PM CDT EXAM: CT ABDOMEN AND PELVIS WITH AND WITHOUT CONTRAST HISTORY: GI bleed With and without contr ast COMPARISON: November 11, 2019 CT abdomen an d pelvis with contrast. DOSE: 3760.82 mGy-cm TECHNIQUE AND FINDINGS: Contiguous axial imaging from the level of the lung bases through the pubic symphysis was pe rformed before and after the uncomplicated administration of 120 mL o f intravenous Omnipaque contrast. Precontrast, arterial, venous and 90 sec onds delayed phase images were obtained according to the GI bleed kirti col. Coronal and sagittal reconstructions were obtained. Auto mA and/or iterative reconstruction were used to reduce radiation dose. FINDINGS: Suboptimal study secondary to presence o f contrast from the previous CT scan from 11/11/2019 within the bowel lum en at various sites on the precontrast study.. LOWER THORAX: Bibasilar atelectasis. Sca ttered interstitial septal thickening, bronchiectasis and bronchial wall thickening. No cardiomegaly. LIVER: Cirrhotic liver morphology with n odular contours and hypertrophy of the segment 4, 1 2 and 3. A nonenhancing 3.7 cm segment 5 oblong hypodense structure measures simple cyst attenuati on. Mild periportal edema is present. 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 SPLEEN: Splenomegaly at 19.5 cm. PANCREAS: No ductal dilation or masses. ADRENAL GLANDS: No adrenal nodules. KIDNEYS: No hydronephrosis, stones, or m asses. 2.4 cm right interpolar simple cyst. PERITONEUM AND RETROPERITONEUM: No free air. Trace volume perihepatic and pericolonic simple ascites. LYMPH NODES: No lymphadenopathy. GI TRACT: Small sliding hiatal hernia. A gain noted is extensive prominent ascending colon, and transverse colon m ucosal enhancement and subjacent fatty stranding, with relatively sparing of left colon. Dilatation of transverse colon and air fluid levels. A ppendix is nonvisualized. PELVIS/BLADDER: Urinary bladder is under distended with concern wall thickening secondary to underdistention. VESSELS: Mild scattered aortoiliac ather osclerotic plaquing and calcification results in no significant stenosis of the branch vessel ostia. Small gastroesophageal varices.. BONES AND SOFT TISSUES: No suspicious ly tic or sclerotic bony lesions. IMPRESSION Study is limited secondary to presence o f intraluminal contrast on the noncontrast study from the prior CT scan . No active extravasation of contrast seen in the area where there wa s no contrast on the noncontrast CT from today. no arterial secondary signs aneurysm, early draining vein ( AVM ) seen Changes consistent right and transverse colon with mild dilatation of transverse colon with air fluid levels . Consider infectious colitis. No changes of ischemia or vessel occlusion. Small sliding hiatal hernia. Trace perihepatic and pericolonic ascite s, likely reactive. Cirrhosis without focal hepatic lesion w ith sequela of portal hypertension including splenomegaly and gastroesophag eal varices. Preliminary Report Dictated by Resident: Yovany Mancuso MD., have revie wed this study and agree with the above report. Performing Organization Address City/State/Zipcode Phone Number PACS/VR/DOSE Prepare Packed RBC (in units), 2 Units (11/12/2019 8:34 AM CDT) Cross Match Result Compatible LAB ISBT Blood Type Code 6200 LAB Unit Blood Type A Pos LAB Unit Number [id number] LAB Blood Expiration Date & LAB Time Status Information Issued LAB Product Identification Red Blood Cells LAB Product Code [id number] LAB Comment: Performed at [facility] Services - [facility] Blood [place] [address] Toll Free: [phone] CLIA No. [id number] Cross Match Result Compatible LAB ISBT Blood Type Code 6200 LAB Unit Blood Type A Pos LAB Unit Number [id number] LAB Blood Expiration Date & LAB Time Status Information Issued LAB Product Identification Red Blood Cells LAB Product Code [id number] LAB Comment: Performed at [facility] Laboratory Services [facility] Blood [place] [address] Toll Free: [phone] CLIA No. [id number] Specimen Performing Organization Address [facility] Phone Number [facility] LAB POCT GLUCOSE (AUTOMATED) (11/12/2019 7:38 AM CDT) Pathologist Sig nature POCT GLU 109 70 - 110 mg/dL [facility] Specimen Blood Performing Organization Address [facility] Phone Number [facility] CLIA: [id number], [address] [place] [address] [facility] POCT GLUCOSE (AUTOMATED) (11/12/2019 5:06 AM CDT) Pathologist Sig nature POCT GLU 101 70 - 110 mg/dL [facility] Specimen Blood Performing Organization Address [facility] Phone Number [facility] CLIA: [id number], [address] [place] [address] [address] [facility] POCT GLUCOSE (AUTOMATED) (11/12/2019 5:04 AM CDT) Pathologist Sig nature POCT GLU 45 (LL) 70 - 110 mg/dL [facility] Specimen Blood Performing Organization Address [facility] Phone Number [facility] CLIA: [id number], [address] [place] [address] [facility] CBC WITH DIFFERENTIAL (11/12/2019 4:59 AM CDT) WBC 5.46 4.30 - 11.10 [facility] 10*3/L SERVICES RBC 1.76 (L) 3.93 - 5.25 [facility] 10*6/L SERVICES HGB 5.5 (L) 11.6 - 15.0 [facility] g/dL SERVICES HCT 17.1 (L) 35.7 - 45.2 % [facility] SERVICES MCV 97.2 (H) 80.6 - 95.5 [facility] fL SERVICES MCH 31.3 25.9 - 32.8 [facility] pg SERVICES MCHC 32.2 31.6 - 35.1 [facility] g/dL SERVICES RDW-SD 53.6 (H) 39.0 - 49.9 [facility] fL SERVICES RDW-CV 15.3 12.0 - 15.5 % [facility] SERVICES PLT 28 (LL) 166 - 358 [facility] 10*3/L SERVICES MPV 9.6 9.5 - 12.9 fL [facility] SERVICES IPF % 1.9Comment: Platelet 1.3 - 7.7 % [facility] count measured by SERVICES fluorescence method. NRBC/100 WBC 0.0 0.0 - 10.0 [facility] /100 WBCs SERVICES NRBC x10^3 <0.01 10*3/L [facility] SERVICES GRAN MAT (NEUT) % 81.5 % [facility] SERVICES IMM GRAN % 1.10 % [facility] SERVICES LYMPH % 11.7 % [facility] SERVICES MONO % 4.6 % [facility] SERVICES EOS % 0.9 % [facility] SERVICES BASO % 0.2 % [facility] SERVICES GRAN MAT 4.45 1.88 - 7.09 [facility] x10^3(ANC) 10*3/uL SERVICES IMM GRAN x10^3 0.06 0.00 - 0.06 [facility] 10*3/uL SERVICES LYMPH x10^3 0.64 (L) 1.32 - 3.29 [facility] 10*3/uL SERVICES MONO x10^3 0.25 (L) 0.33 - 0.92 [facility] 10*3/uL SERVICES EOS x10^3 0.05 0.03 - 0.39 [facility] 10*3/uL SERVICES BASO x10^3 <0.03 0.01 - 0.07 [facility] 10*3/uL SERVICES Specimen Blood - ARM, LEFT Performing Organization Address [facility] Phone Number [facility] CLIA: [id number], [address] [place] [address] [address] [facility] Hepatic Function Panel (ALB, T.PRO, BILI T, BU/BC, ALT, AST, ALK, PHOS) (11/12/2019 4:59 AM CDT) Pathologist Sig nature TOTAL BILI 0.7 0.1 - 1.1 mg/dL [facility] BILI UNCON 0.5 0.1 - 1.1 mg/dL [facility] BILI CONJ 0.0 0.0 - 0.3 mg/dL [facility] T PROTEIN 3.0 (L) 6.3 - 8.2 g/dL [facility] SERVICES ALBUMIN 1.2 (L) 3.5 - 5.0 g/dL [facility] ALK PHOS 39 34 - 122 U/L [facility] ALTv 10 5 - 35 U/L [facility] AST(SGOT) 18 13 - 40 U/L [facility] SERVICES Specimen Blood - ARM, LEFT Performing Organization Address [facility] Phone Number [facility] CLIA: [id number], [address] [place] [address] [address] [facility] Magnesium Serum (11/12/2019 4:59 AM CDT) Pathologist Sig nature MAGNESIUM 1.2 (L) 1.7 - 2.4 mg/dL [facility] SERVICES Specimen Blood - ARM, LEFT Performing Organization Address [facility] Phone Number [facility] CLIA: [id number], [address] [place] [address] [address] [facility] Basic Metabolic Panel (NA, K, CL, CO2, Glucose, BUN, Creatinine, CA) (11/12/2019 4:59 AM CDT) NA 133 (L) 135 - 145 [facility] mmol/L SERVICES K 3.2 (L) 3.5 - 5.0 [facility] mmol/L SERVICES CL 112 (H) 98 - 108 mmol/L [facility] SERVICES CO2 TOTAL 12 (L) 23 - 31 mmol/L [facility] SERVICES AGAP 9 2 - 16 [facility] SERVICES BUN 9 7 - 23 mg/dL [facility] SERVICES GLUCOSE 46 (LL) 70 - 110 mg/dL [facility] SERVICES CREATININE 0.22 (L) 0.50 - 1.04 [facility] mg/dL SERVICES CALCIUM 5.5 (LL) 8.6 - 10.6 [facility] mg/dL SERVICES eGFR Calculation 326.8 mL/min/1.73m2 [facility] (Non- SERVICES [place]ian) eGFR Calculation 396.1 mL/min/1.73m2 [facility] () SERVICES Specimen Blood - ARM, LEFT Narrative Performed At Association of Glomerular Filtration Rate (GFR) and St aging [facility] SERVICES of Kidney Disease* + + +------- ------ + | GFR (mL/min/1.73 m2) | With Kidney Damage | Wi thout Kidney Damage + + +------- ------ + | >90 | Stage one | Normal + + +------- ------ + | 60-89 | Stage two | Decreased GFR + + +------- ------ + | 30-59 | Stage three | Stage three + + +------- ------ + | 15-29 | Stage four | Stage four + + +------- ------ + | <15 (or dialysis) | Stage five | Stage five + + +------- ------ + *Each stage assumes the associated GFR level has been in effect for at least three months. Stages 1 to 5, wit h or without kidney disease, indicate chronic kidney disease. Notes: Determination of stages one and two (with eGFR >59mL/min/1.73 m2) requires estimation of kidney damag e for at least three months as defined by structural or func tional abnormalities of the kidney, manifested by either: Pathological abnormalities or Markers of kidney damage (including abnormalities in the composition of the blo od or urine or abnormalities in imaging tests) . Performing Organization Address City/State/Zipcode Phone Number [facility] CLIA: [id number], [address] [place] [address] [address] [facility] Prothrombin Time / INR (11/12/2019 4:59 AM CDT) PROTIME PATIENT 17.8 (H) 10.1 - 12.6 [facility] Seconds SERVICES INR 1.6Comment: Normal [facility] INR <1.1; Warfarin SERVICES Therapeutic range 2.0 to 3.0 or 2.5 to 3.5, depending upon the indications. Specimen Blood - ARM, LEFT Performing Organization Address City/State/Zipcode Phone Number [facility] CLIA: [id number], [address] [place], [place] [address] POCT GLUCOSE (AUTOMATED) (11/11/2019 11:35 PM CDT) Pathologist Sig nature POCT GLU 113 (H) 70 - 110 mg/dL [facility] Specimen Blood Performing Organization Address City/State/Zipcode Phone Number [facility] CLIA: [id number], [address] [place], [place] [address] [place] CBC WITH DIFFERENTIAL (11/11/2019 11:28 PM CDT) WBC 6.52 4.30 - 11.10 [facility] 10*3/L SERVICES RBC 2.52 (L) 3.93 - 5.25 [facility] 10*6/L SERVICES HGB 7.8 (L) 11.6 - 15.0 [facility] g/dL SERVICES HCT 23.8 (L) 35.7 - 45.2 % [facility] SERVICES MCV 94.4 80.6 - 95.5 [facility] fL SERVICES MCH 31.0 25.9 - 32.8 [facility] pg SERVICES MCHC 32.8 31.6 - 35.1 [facility] g/dL SERVICES RDW-SD 52.9 (H) 39.0 - 49.9 [facility] fL SERVICES RDW-CV 15.4 12.0 - 15.5 % [facility] SERVICES PLT 30 (LL) 166 - 358 [facility] 10*3/L SERVICES MPV 10.1 9.5 - 12.9 fL [facility] SERVICES IPF % 2.1Comment: Platelet 1.3 - 7.7 % [facility] count measured by SERVICES fluorescence method. NRBC/100 WBC 0.0 0.0 - 10.0 [facility] /100 WBCs SERVICES NRBC x10^3 <0.01 10*3/L [facility] SERVICES GRAN MAT (NEUT) % 78.1 % [facility] SERVICES IMM GRAN % 3.10 % [facility] SERVICES LYMPH % 13.3 % [facility] SERVICES MONO % 4.4 % [facility] SERVICES EOS % 0.9 % [facility] SERVICES BASO % 0.2 % [facility] SERVICES GRAN MAT 5.09 1.88 - 7.09 [facility] x10^3(ANC) 10*3/uL SERVICES IMM GRAN x10^3 0.20 (H) 0.00 - 0.06 [facility] 10*3/uL SERVICES LYMPH x10^3 0.87 (L) 1.32 - 3.29 [facility] 10*3/uL SERVICES MONO x10^3 0.29 (L) 0.33 - 0.92 [facility] 10*3/uL SERVICES EOS x10^3 0.06 0.03 - 0.39 [facility] 10*3/uL SERVICES BASO x10^3 <0.03 0.01 - 0.07 [facility] 10*3/uL SERVICES BANDS Increased (A) [facility] SERVICES TOXIC CHANGES Present (A) [facility] SERVICES Specimen Blood - ARM, LEFT Performing Organization Address City/State/Zipcode Phone Number [facility] CLIA: [id number], [address] [place] [address] POCT GLUCOSE (AUTOMATED) (11/11/2019 8:14 PM CDT) Pathologist Sig nature POCT GLU 103 70 - 110 mg/dL [facility] Specimen Blood Performing Organization Address City/[facility]/Zipcode Phone Number [facility] CLIA: [id number], [address] [place] [address] [address] [place] CBC WITH DIFFERENTIAL (11/11/2019 4:54 PM CDT) WBC 7.79 4.30 - 11.10 [facility] 10*3/L SERVICES RBC 2.49 (L) 3.93 - 5.25 [facility] 10*6/L SERVICES HGB 7.7 (L) 11.6 - 15.0 [facility] g/dL SERVICES HCT 24.0 (L) 35.7 - 45.2 % [facility] SERVICES MCV 96.4 (H) 80.6 - 95.5 [facility] fL SERVICES MCH 30.9 25.9 - 32.8 [facility] pg SERVICES MCHC 32.1 31.6 - 35.1 [facility] g/dL SERVICES RDW-SD 53.6 (H) 39.0 - 49.9 [facility] fL SERVICES RDW-CV 15.3 12.0 - 15.5 % [facility] SERVICES PLT 38 (LL) 166 - 358 [facility] 10*3/L SERVICES MPV 10.5 9.5 - 12.9 fL [facility] SERVICES IPF % 3.0Comment: Platelet 1.3 - 7.7 % [facility] count measured by SERVICES fluorescence method. NRBC/100 WBC 0.0 0.0 - 10.0 [facility] /100 WBCs SERVICES NRBC x10^3 <0.01 10*3/L [facility] SERVICES GRAN MAT (NEUT) % 82.8 % [facility] SERVICES IMM GRAN % 1.50 % [facility] SERVICES LYMPH % 10.9 % [facility] SERVICES MONO % 4.2 % [facility] SERVICES EOS % 0.5 % [facility] SERVICES BASO % 0.1 % [facility] SERVICES GRAN MAT 6.44 1.88 - 7.09 [facility] x10^3(ANC) 10*3/uL SERVICES IMM GRAN x10^3 0.12 (H) 0.00 - 0.06 [facility] 10*3/uL SERVICES LYMPH x10^3 0.85 (L) 1.32 - 3.29 [facility] 10*3/uL SERVICES MONO x10^3 0.33 0.33 - 0.92 [facility] 10*3/uL SERVICES EOS x10^3 0.04 0.03 - 0.39 [facility] 10*3/uL SERVICES BASO x10^3 <0.03 0.01 - 0.07 [facility] 10*3/uL SERVICES BANDS Increased (A) [facility] SERVICES Specimen Blood - ARM, LEFT Performing Organization Address City/[facility]/Zipcode Phone Number [facility] [facility] CLIA: [id number], [address] [place] [address] 77 555 [facility] POCT GLUCOSE (AUTOMATED) (11/11/2019 4:49 PM CDT) [facility] POCT GLU 105 70 - 110 mg/dL [facility] Specimen Blood Performing Organization Address City/[facility]/Zipcode Phone Number [facility] CLIA: [id number], [address] [place] [address] [phone] [place] [address] CLOSTRIDIUM DIFFICILE TOXIN (11/11/2019 3:50 PM CDT) Pathologist [facility] Clostridioides Positive (A) Negative [facility] (Clostridium) difficile SERVICES Specimen Stool - ANAL Performing Organization Address City/[facility]/Zipcode Phone Number [facility] CLIA: [id number], [address] [place] [address] 555 [facility] Prepare Packed RBC (in units), 1 Units (11/11/2019 1:52 PM CDT) Pathologist [facility] Cross Match Result Compatible LAB ISBT Blood Type Code 6200 LAB Unit Blood Type A Pos LAB Unit Number [id number] LAB Blood Expiration Date & [id number] LAB Time Status Information Issued LAB Product Identification Red Blood Cells LAB Product Code [id number] LAB Comment: Performed at [facility] Laboratory Services - [facility] Blood [place] [address] Toll Free: [phone] CLIA No. [id number] Specimen Performing Organization Address City/[facility] Phone Number [facility] LAB Type and Screen - ONCE Routine (11/11/2019 12:58 PM CDT) Pathologist [facility] ABO & RH A POSITIVE LAB Comment: Performed at [facility] Laboratory Services - [facility] Blood [place] [address] Toll Free: [phone] CLIA No. [id number] IAT Negative LAB Comment: Performed at [facility] Laboratory Services - [facility] Blood [place] [address] Toll Free: [phone] CLIA No. [id number] Specimen Blood - VENOUS Performing Organization Address City/[facility]/Zipcode Phone Number [facility] LAB POCT GLUCOSE (AUTOMATED) (11/11/2019 12:28 PM CDT) Pathologist Sig nature POCT GLU 233 (H) 70 - 110 mg/dL [facility] Specimen Blood Performing Organization Address City/[facility]/Zipcode Phone Number [facility] CLIA: [id number], [address] [place] [address]755 [facility] POCT GLUCOSE (AUTOMATED) (11/11/2019 11:24 AM CDT) Pathologist Sig nature POCT GLU 211 (H) 70 - 110 mg/dL [facility] Specimen Blood Performing Organization Address City/State/Zipcode Phone Number [facility] CLIA: [id number], [address] [place], [place] [address] [facility] CT ABDOMEN PELVIS W CONTRAST (11/11/2019 10:05 AM CDT) Specimen Impressions Performed At PACS/VR/DOSE 1. No evidence of bowel obstruction. Prominent mucos al enhancement in the distal stomach suggests gastritis. Mural thickening an d mucosal enhancement seen involving the ascending and transverse colon may represent congestive changes versus colitis. There is surrounding free flui d and fat stranding. 2. Cirrhosis with portal hypertension. A hypodensity is seen in the right lobe of the liver (segment ) measuring approximately 2.6 cm, indeterminate on this single phase study. Recommend fu rther evaluation with MRI. Narrative Performed At EXAM: CT ABDOMEN AND PELVIS WITH CONTRAS T PACS/VR/DOSE HISTORY: 59-year-old female with bowel o bstruction. COMPARISON: November 09, 2019 DOSE: Total exam DLP 906 mGy-cm TECHNIQUE AND FINDINGS: Contiguous axial imaging was performed after the uncomplicated administration of 120 cc of intravenous Omnipaque contrast. Coronal and sagittal reconstructions wer e obtained. FINDINGS: LOWER THORAX: Bibasilar atelectasis is seen but no mannie dence of pleural or pericardial effusion. LIVER: Cirrhosis with portal hypertensio n. A hypodensity is seen in the right lobe of the liver (segment ) jose suring approximately 3.6 cm, indeterminate on this single phase study . Patent portal vein and hepatic venous branches. Mild periportal edema i s unchanged. GALLBLADDER AND BILIARY TREE: Prominent extrahepatic C BD likely secondary to prior cholecystectomy. SPLEEN: Enlarged spleen but no focal les ions. PANCREAS: No ductal dilation or focal le sions. ADRENAL GLANDS: No adrenal nodules. KIDNEYS: No hydronephrosis, stones, or solid lesions. Stable cyst is seen in the right kidney. PERITONEUM AND RETROPERITONEUM: Minimal free fluid is seen in the upper abdomen, slightly worse when compared to the prior study. LYMPH NODES: No lymphadenopathy is seen. GI TRACT: No evidence of dilated bowel loops. Prominen t mucosal enhancement is seen in the distal stomach suggesting gastritis (30 1:41). The ascending and transverse colon show mural thickeni ng and mucosal enhancement with some surrounding fat stranding which may represent colitis versus congestive changes. No evidence of appen dicitis or diverticulitis. PELVIS/BLADDER: The urinary bladder appears normal. No adnexal masses are seen. VESSELS: Scattered atherosclerotic calcifications. An enlarged main portal vein. BONES AND SOFT TISSUES: No suspicious ly tic or sclerotic bone lesions. Procedure Note [facility], Radiant Results Inft User - 2019 10:29 AM CDT EXAM: CT ABDOMEN AND PELVIS WITH CONTRAST HISTORY: 59-year-old female with bowel o bstruction. COMPARISON: November 09, 2019 DOSE: Total exam DLP 906 mGy-cm TECHNIQUE AND FINDINGS: Contiguous axial imaging was performed after the uncomplicated administration of 120 cc o f intravenous Omnipaque contrast. Coronal and sagittal reconstructions wer e obtained. FINDINGS: LOWER THORAX: Bibasilar atelectasis is s een but no evidence of pleural or pericardial effusion. LIVER: Cirrhosis with portal hypertensio n. A hypodensity is seen in the right lobe of the liver (segment ) jose suring approximately 3.6 cm, indeterminate on this single phase study . Patent portal vein and hepatic venous branches. Mild periportal edema i s unchanged. GALLBLADDER AND BILIARY TREE: Prominent extrahepatic CBD likely secondary to prior cholecystectomy. SPLEEN: Enlarged spleen but no focal les ions. PANCREAS: No ductal dilation or focal le sions. ADRENAL GLANDS: No adrenal nodules. KIDNEYS: No hydronephrosis, stones, or s olid lesions. Stable cyst is seen in the right kidney. PERITONEUM AND RETROPERITONEUM: Minimal free fluid is seen in the upper abdomen, slightly worse when compared to the prior study. LYMPH NODES: No lymphadenopathy is seen. GI TRACT: No evidence of dilated bowel l oops. Prominent mucosal enhancement is seen in the distal stomach suggesting gastritis (301:41). The ascending and transverse colon show mural thickeni ng and mucosal enhancement with some surrounding fat stranding which may represent colitis versus congestive changes. No evidence of appen dicitis or diverticulitis. PELVIS/BLADDER: The urinary bladder appe ars normal. No adnexal masses are seen. VESSELS: Scattered atherosclerotic calci fications. An enlarged main portal vein. BONES AND SOFT TISSUES: No suspicious ly tic or sclerotic bone lesions. IMPRESSION 1. No evidence of bowel obstruction. Pr ominent mucosal enhancement in the distal stomach suggests gastritis. Mural thickening and mucosal enhancement seen involving the ascending and transve rse colon may represent congestive changes versus colitis. There is surroun ding free fluid and fat stranding. 2. Cirrhosis with portal hypertension. A hypodensity is seen in the right lobe of the liver (segment ) measuring approximately 2.6 cm, indeterminate on this single phase study . Recommend further evaluation with MRI. Performing Organization Address City/State/Zipcode Phone Number PACS/VR/DOSE FIBRINOGEN (11/11/2019 9:12 AM CDT) Pathologist Sig nature Fibrinogen 356 167 - 453 mg/dL [facility] Specimen Blood - ARM, LEFT Performing Organization Address City/State/Zipcode Phone Number [facility] CLIA: [id number], [address] [place], [place] [address] CBC WITH DIFFERENTIAL (11/11/2019 9:12 AM CDT) WBC 8.56 4.30 - 11.10 [facility] 10*3/L SERVICES RBC 2.32 (L) 3.93 - 5.25 [facility] 10*6/L SERVICES HGB 6.9 (L) 11.6 - 15.0 [facility] g/dL SERVICES HCT 22.9 (L) 35.7 - 45.2 % [facility] MCV 98.7 (H) 80.6 - 95.5 [facility] fL SERVICES MCH 29.7 25.9 - 32.8 [facility] pg SERVICES MCHC 30.1 (L) 31.6 - 35.1 [facility] g/dL SERVICES RDW-SD 56.2 (H) 39.0 - 49.9 [facility] fL SERVICES RDW-CV 15.9 (H) 12.0 - 15.5 % [facility] PLT 38 (LL) 166 - 358 [facility] 10*3/L SERVICES MPV 10.7 9.5 - 12.9 fL [facility] IPF % 3.6Comment: Platelet 1.3 - 7.7 % [facility] count measured by SERVICES fluorescence method. NRBC/100 WBC 0.0 0.0 - 10.0 [facility] /100 WBCs SERVICES NRBC x10^3 <0.01 10*3/L [facility] GRAN MAT (NEUT) % 83.1 % [facility] IMM GRAN % 1.80 % [facility] LYMPH % 10.5 % [facility] MONO % 4.4 % [facility] EOS % 0.1 % [facility] BASO % 0.1 % [facility] GRAN MAT 7.11 (H) 1.88 - 7.09 [facility] x10^3(ANC) 10*3/uL SERVICES IMM GRAN x10^3 0.15 (H) 0.00 - 0.06 [facility] 10*3/uL SERVICES LYMPH x10^3 0.90 (L) 1.32 - 3.29 [facility] 10*3/uL SERVICES MONO x10^3 0.38 0.33 - 0.92 [facility] 10*3/uL SERVICES EOS x10^3 <0.03 (L) 0.03 - 0.39 [facility] 10*3/uL SERVICES BASO x10^3 <0.03 0.01 - 0.07 [facility] 10*3/uL SERVICES BANDS MARKED INCREASED (A) [facility] DOHLE BODIES Present (A) [facility] REACT LYMPHS Rare [facility] TOXIC CHANGES Present (A) [facility] Specimen Blood - ARM, LEFT Performing Organization Address City/[facility]/Zipcode Phone Number [facility] CLIA: [id number], [address] [place] [address] 555 [facility] POCT GLUCOSE (AUTOMATED) (11/11/2019 7:45 AM CDT) Pathologist Sig nature POCT GLU 228 (H) 70 - 110 mg/dL [facility] Specimen Blood Performing Organization Address City/[facility]/Zipcode Phone Number [facility] CLIA: [id number], [address] [place] [address] [facility] N-TERMINAL PRO-BNP (11/11/2019 5:42 AM CDT) Pathologist Sig nature NT-proBNP 400 (H) <=125 pg/mL [facility] Specimen Blood - ARM, LEFT Narrative Performed At [facility] has been reported to cause a negative bias, int erpret [facility] results relative to patient's use of biotin. Performing Organization Address City/State/Zipcode Phone Number [facility] CLIA: [id number], [address] [place], [place] [address] 555 [facility] PHOSPHORUS (11/11/2019 5:42 AM CDT) Pathologist Sig nature PHOSPHORUS 1.4 (L) 2.5 - 5.0 mg/dL [facility] Specimen Blood - ARM, LEFT Performing Organization Address City/State/Zipcode Phone Number [facility] CLIA: [id number], [address] [place], [place] [address] 555 [facility] COMP. METABOLIC PANEL (47707) (11/11/2019 5:42 AM CDT) NA 136 135 - 145 [facility] mmol/L SERVICES K 3.6 3.5 - 5.0 [facility] mmol/L SERVICES CL 110 (H) 98 - 108 mmol/L [facility] CO2 TOTAL 20 (L) 23 - 31 mmol/L [facility] AGAP 6 2 - 16 [facility] BUN 17 7 - 23 mg/dL [facility] GLUCOSE 153 (H) 70 - 110 mg/dL [facility] CREATININE 0.47 (L) 0.50 - 1.04 [facility] mg/dL SERVICES TOTAL BILI 2.0 (H) 0.1 - 1.1 mg/dL [facility] CALCIUM 6.6 (L) 8.6 - 10.6 [facility] mg/dL SERVICES T PROTEIN 5.0 (L) 6.3 - 8.2 g/dL [facility] ALBUMIN 2.1 (L) 3.5 - 5.0 g/dL [facility] ALK PHOS 79 34 - 122 U/L [facility] ALTv 21 5 - 35 U/L [facility] AST(SGOT) 27 13 - 40 U/L [facility] eGFR Calculation 136.1 mL/min/1.73m2 [facility] (Non- SERVICES [place]ian) eGFR Calculation 165.0 mL/min/1.73m2 [facility] () SERVICES Specimen Blood - ARM, LEFT Narrative Performed At Association of Glomerular Filtration Rate (GFR) and St aging [facility] SERVICES of Kidney Disease* + + +------- ------ + | GFR (mL/min/1.73 m2) | With Kidney Damage | Wi thout Kidney Damage + + +------- ------ + | >90 | Stage one | Normal + + +------- ------ + | 60-89 | Stage two | Decreased GFR + + +------- ------ + | 30-59 | Stage three | Stage three + + +------- ------ + | 15-29 | Stage four | Stage four + + +------- ------ + | <15 (or dialysis) | Stage five | Stage five + + +------- ------ + *Each stage assumes the associated GFR level has been in effect for at least three months. Stages 1 to 5, wit h or without kidney disease, indicate chronic kidney disease. Notes: Determination of stages one and two (with eGFR >59mL/min/1.73 m2) requires estimation of kidney damag e for at least three months as defined by structural or func tional abnormalities of the kidney, manifested by either: Pathological abnormalities or Markers of kidney damage (including abnormalities in the composition of the blo od or urine or abnormalities in imaging tests) . Performing Organization Address City/State/Zipcode Phone Number [facility] CLIA: [id number], [address] [place] [address] 555 [facility] CBC WITH DIFFERENTIAL (11/11/2019 4:32 AM CDT) WBC 7.81 4.30 - 11.10 [facility] 10*3/L SERVICES RBC 2.40 (L) 3.93 - 5.25 [facility] 10*6/L SERVICES HGB 7.3 (L) 11.6 - 15.0 [facility] g/dL SERVICES HCT 23.6 (L) 35.7 - 45.2 % [facility] SERVICES MCV 98.3 (H) 80.6 - 95.5 [facility] fL SERVICES MCH 30.4 25.9 - 32.8 [facility] pg SERVICES MCHC 30.9 (L) 31.6 - 35.1 [facility] g/dL SERVICES RDW-SD 57.1 (H) 39.0 - 49.9 [facility] fL SERVICES RDW-CV 15.8 (H) 12.0 - 15.5 % [facility] PLT 22 (LL) 166 - 358 [facility] 10*3/L SERVICES MPV 11.7 9.5 - 12.9 fL [facility] SERVICES IPF % 4.7Comment: Platelet 1.3 - 7.7 % [facility] count measured by SERVICES fluorescence method. NRBC/100 WBC 0.3 0.0 - 10.0 [facility] /100 WBCs SERVICES NRBC x10^3 0.02 10*3/L [facility] GRAN MAT (NEUT) % 78.4 % [facility] IMM GRAN % 5.40 % [facility] LYMPH % 11.3 % [facility] MONO % 4.7 % [facility] EOS % 0.1 % [facility] BASO % 0.1 % [facility] GRAN MAT 6.12 1.88 - 7.09 [facility] x10^3(ANC) 10*3/uL SERVICES IMM GRAN x10^3 0.42 (H) 0.00 - 0.06 [facility] 10*3/uL SERVICES LYMPH x10^3 0.88 (L) 1.32 - 3.29 [facility] 10*3/uL SERVICES MONO x10^3 0.37 0.33 - 0.92 [facility] 10*3/uL SERVICES EOS x10^3 <0.03 (L) 0.03 - 0.39 [facility] 10*3/uL SERVICES BASO x10^3 <0.03 0.01 - 0.07 [facility] 10*3/uL SERVICES BASO STIPPLING Present (A) [facility] Specimen Blood - ARM, LEFT Performing Organization Address City/[facility]/Zipcode Phone Number [facility] CLIA: [id number], [address] [place] [address] 555 [facility] POCT GLUCOSE (AUTOMATED) (11/11/2019 4:29 AM CDT) Pathologist [facility] POCT GLU 168 (H) 70 - 110 mg/dL [facility] Specimen Blood Performing Organization Address City/[facility]/Zipcode Phone Number [facility] CLIA: [id number], [address] [place] [address] [facility] Hepatic Function Panel (ALB, T.PRO, BILI T, BU/BC, ALT, AST, ALK, PHOS) (11/11/2019 12:28 AM CDT) [facility] Sensdata TOTAL BILI 2.1 (H) 0.1 - 1.1 mg/dL [facility] BILI UNCON 1.6 (H) 0.1 - 1.1 mg/dL [facility] BILI CONJ 0.0 0.0 - 0.3 mg/dL [facility] T PROTEIN 4.8 (L) 6.3 - 8.2 g/dL [facility] ALBUMIN 2.0 (L) 3.5 - 5.0 g/dL [facility] ALK PHOS 59 34 - 122 U/L [facility] ALTv 19 5 - 35 U/L [facility] AST(SGOT) 27 13 - 40 U/L [facility] Specimen Blood - ARM, LEFT Performing Organization Address City/[facility]/Zipcode Phone Number [facility] CLIA: [id number], [address] [place] [address] 555 [facility] Magnesium Serum (11/11/2019 12:28 AM CDT) Pathologist Sig nature MAGNESIUM 1.3 (L) 1.7 - 2.4 mg/dL [facility] Specimen Blood - ARM, LEFT Performing Organization Address [facility] Phone Number [facility] CLIA: [id number], [address] [place] [address] 555 [facility] Basic Metabolic Panel (NA, K, CL, CO2, Glucose, BUN, Creatinine, CA) (11/11/2019 12:28 AM CDT) NA 138 135 - 145 [facility] mmol/L SERVICES K 3.6 3.5 - 5.0 [facility] mmol/L SERVICES CL 111 (H) 98 - 108 mmol/L [facility] CO2 TOTAL 20 (L) 23 - 31 mmol/L [facility] AGAP 7 2 - 16 [facility] BUN 17 7 - 23 mg/dL [facility] GLUCOSE 136 (H) 70 - 110 mg/dL [facility] CREATININE 0.46 (L) 0.50 - 1.04 [facility] mg/dL SERVICES CALCIUM 6.5 (L) 8.6 - 10.6 [facility] mg/dL SERVICES eGFR Calculation 139.5 mL/min/1.73m2 [facility] (Non- SERVICES [place]ian) eGFR Calculation 169.1 mL/min/1.73m2 [facility] () SERVICES Specimen Blood - ARM, LEFT Narrative Performed At [facility] of Glomerular Filtration Rate (GFR) and St aging [facility] of Kidney Disease* + + +------- ------ + | GFR (mL/min/1.73 m2) | With Kidney Damage | Wi thout Kidney Damage + + +------- ------ + | >90 | Stage one | Normal + + +------- ------ + | 60-89 | Stage two | Decreased GFR + + +------- ------ + | 30-59 | Stage three | Stage three + + +------- ------ + | 15-29 | Stage four | Stage four + + +------- ------ + | <15 (or dialysis) | Stage five | Stage five + + +------- ------ + *Each stage assumes the associated GFR level has been in effect for at least three months. Stages 1 to 5, wit h or without kidney disease, indicate chronic kidney disease. Notes: Determination of stages one and two (with eGFR >59mL/min/1.73 m2) requires estimation of kidney damag e for at least three months as defined by structural or func tional abnormalities of the kidney, manifested by either: Pathological abnormalities or Markers of kidney damage (including abnormalities in the composition of the blo od or urine or abnormalities in imaging tests) . Performing Organization Address City/[facility] Cent[facility] Phone Number [facility] CLIA: [id number], [address] [place] [address] 555 [facility] Prothrombin Time / INR (11/11/2019 12:28 AM CDT) Pathologist [facility] PROTIME PATIENT 16.6 (H) 10.1 - 12.6 [facility] Seconds SERVICES INR 1.5Comment: Normal [facility] INR <1.1; Warfarin SERVICES Therapeutic range 2.0 to 3.0 or 2.5 to 3.5, depending upon the indications. Specimen Blood - ARM, LEFT Performing Organization Address [facility]/Zipcode Phone Number [facility] CLIA: [id number], [address] [place] [address] 555 [facility] CBC WITH DIFFERENTIAL (11/11/2019 12:27 AM CDT) [facility] WBC 7.81 4.30 - 11.10 [facility] 10*3/L SERVICES RBC 2.27 (L) 3.93 - 5.25 [facility] 10*6/L SERVICES HGB 7.0 (L) 11.6 - 15.0 [facility] g/dL SERVICES HCT 21.9 (L) 35.7 - 45.2 % [facility] MCV 96.5 (H) 80.6 - 95.5 [facility] fL SERVICES MCH 30.8 25.9 - 32.8 [facility] pg SERVICES MCHC 32.0 31.6 - 35.1 [facility] g/dL SERVICES RDW-SD 56.0 (H) 39.0 - 49.9 [facility] fL SERVICES RDW-CV 16.0 (H) 12.0 - 15.5 % [facility] PLT 32 (LL) 166 - 358 [facility] 10*3/L SERVICES MPV 10.2 9.5 - 12.9 fL [facility] IPF % 2.8Comment: Platelet 1.3 - 7.7 % [facility] count measured by SERVICES fluorescence method. NRBC/100 WBC 0.0 0.0 - 10.0 [facility] /100 WBCs SERVICES NRBC x10^3 <0.01 10*3/L [facility] GRAN MAT (NEUT) % 85.0 % [facility] IMM GRAN % 0.90 % [facility] LYMPH % 10.2 % [facility] MONO % 3.8 % [facility] EOS % 0.1 % [facility] BASO % 0.0 % [facility] GRAN MAT 6.63 1.88 - 7.09 [facility] x10^3(ANC) 10*3/uL SERVICES IMM GRAN x10^3 0.07 (H) 0.00 - 0.06 [facility] 10*3/uL SERVICES LYMPH x10^3 0.80 (L) 1.32 - 3.29 [facility] 10*3/uL SERVICES MONO x10^3 0.30 (L) 0.33 - 0.92 [facility] 10*3/uL SERVICES EOS x10^3 <0.03 (L) 0.03 - 0.39 [facility] 10*3/uL SERVICES BASO x10^3 <0.03 0.01 - 0.07 [facility] 10*3/uL SERVICES BANDS MARKED INCREASED (A) [facility] Specimen Blood - ARM, LEFT Performing Organization Address City/State/Zipcode Phone Number [facility] CLIA: [id number], [address] [place] [address] 555 [facility] POCT GLUCOSE (AUTOMATED) (11/11/2019 12:02 AM CDT) Pathologist Sig nature POCT GLU 191 (H) 70 - 110 mg/dL [facility] Specimen Blood Performing Organization Address City/[facility]/Zipcode Phone Number [facility] CLIA: [id number], [address] [place] [address] [facility] POCT GLUCOSE (AUTOMATED) (11/10/2019 9:27 PM CDT) Pathologist Sig nature POCT GLU 202 (H) 70 - 110 mg/dL [facility] Specimen Blood Performing Organization Address [facility] Phone Number [facility] CLIA: [id number], [address] [place] [address] [facility] Abdominal 1 View - To confirm nasogastric tube placement. (11/10/2019 9:15 PM CDT) Specimen Impressions Performed At PACS/VR/DOSE Nonspecific gaseous dilatation of transv erse colon, which can be seen in the setting of partial distal large medardo l obstruction or adynamic ileus. No esophagogastric tube, visualized in t he [id number]. Preliminary Report Dictated by Resident: Liz Quigley MD., have reviewe d this study and agree with the above report. Narrative Performed At EXAM: XR ABDOMEN 1 VW PACS/VR/DOSE HISTORY: 59 years-old Female; NG placeme nt TECHNIQUE: Frontal radiograph of the abd omen and pelvis was obtained. COMPARISON: KUB 11/09/2019. FINDINGS: No esophagogastric tube was visualized i n the [id number]. Nonspecific gaseous dilatation of transverse colon is noted, measuring up to 9 cm, new compared to the prior. Gas in the descend ing and sigmoid colon is noted. No abnormal calcifications or radiopaque stones are identified. Cholecystectomy clips are present in the right upper quadrant. Scattered surgical clips are present in the thorax . No acute bony abnormalities are noted. Procedure Note [facility], Radiant Results Inft User - 2019 9:04 AM CDT EXAM: XR ABDOMEN 1 VW HISTORY: 59 years-old Female; NG placeme nt TECHNIQUE: Frontal radiograph of the abd omen and pelvis was obtained. COMPARISON: KUB 11/09/2019. FINDINGS: No esophagogastric tube was visualized i n the [id number]. Nonspecific gaseous dilatation of transv erse colon is noted, measuring up to 9 cm, new compared to the prior. Gas in the descending and sigmoid colon is noted. No abnormal calcifications or radiopaque stones are identified. Cholecystectomy clips are present in the right upper quadrant. Scattered surgical clips are present in the thorax . No acute bony abnormalities are noted. IMPRESSION Nonspecific gaseous dilatation of transv erse colon, which can be seen in the setting of partial distal large medardo l obstruction or adynamic ileus. No esophagogastric tube, visualized in t he lqmpm-pk-bepe. Preliminary Report Dictated by Resident: Juan Ramon Randle I, Liz Bella MD., have reviewed this study and agree with the above report. Performing Organization Address [facility] Phone Number PACS/VR/DOSE MRSA / MSSA Screen by PCR, Nares (11/10/2019 8:23 PM CDT) Pathologist Sig nature MRSA Screen by PCR, Negative Negative [facility] Nares SERVICES MSSA Screen by PCR, Negative Negative [facility] Nares SERVICES MRSA/MSSA Positive? No No [facility] Specimen Swab - NARES, BOTH SIDES Performing Organization Address [facility] Phone Number [facility] CLIA: [id number], [address] [place] [address] [address] [facility] IRON PANEL (11/10/2019 6:31 PM CDT) Pathologist Sig nature IRON 171 (H) 50 - 160 ug/dL [facility] TIBC 319 250 - 410 ug/dL [facility] % FE SAT 54 (H) 20 - 50 % [facility] Specimen Blood - LINE, VENOUS Performing Organization Address [facility] Phone Number [facility] CLIA: [id number], [address] [place] [address] [address] [facility] CBC WITH DIFFERENTIAL (11/10/2019 6:31 PM CDT) WBC 10.04 4.30 - 11.10 [facility] 10*3/L SERVICES RBC 2.91 (L) 3.93 - 5.25 [facility] 10*6/L SERVICES HGB 8.8 (L) 11.6 - 15.0 [facility] g/dL SERVICES HCT 27.7 (L) 35.7 - 45.2 % [facility] MCV 95.2 80.6 - 95.5 [facility] fL SERVICES MCH 30.2 25.9 - 32.8 [facility] pg SERVICES MCHC 31.8 31.6 - 35.1 [facility] g/dL SERVICES RDW-SD 53.6 (H) 39.0 - 49.9 [facility] fL SERVICES RDW-CV 15.7 (H) 12.0 - 15.5 % [facility] PLT 34 (LL) 166 - 358 [facility] 10*3/L SERVICES MPV 10.5 9.5 - 12.9 fL [facility] IPF % 4.0Comment: Platelet 1.3 - 7.7 % [facility] count measured by SERVICES fluorescence method. NRBC/100 WBC 0.0 0.0 - 10.0 [facility] /100 WBCs SERVICES NRBC x10^3 <0.01 10*3/L [facility] GRAN MAT (NEUT) % 85.3 % [facility] IMM GRAN % 2.50 % [facility] LYMPH % 7.7 % [facility] MONO % 4.4 % [facility] EOS % 0.0 % [facility] BASO % 0.1 % [facility] GRAN MAT 8.57 (H) 1.88 - 7.09 [facility] x10^3(ANC) 10*3/uL SERVICES IMM GRAN x10^3 0.25 (H) 0.00 - 0.06 [facility] 10*3/uL SERVICES LYMPH x10^3 0.77 (L) 1.32 - 3.29 [facility] 10*3/uL SERVICES MONO x10^3 0.44 0.33 - 0.92 [facility] 10*3/uL SERVICES EOS x10^3 <0.03 (L) 0.03 - 0.39 [facility] 10*3/uL SERVICES BASO x10^3 <0.03 0.01 - 0.07 [facility] 10*3/uL SERVICES BASO STIPPLING Present (A) [facility] LENY CELLS 2+ (A) (none) [facility] BANDS MARKED INCREASED (A) [facility] Specimen Blood - LINE, VENOUS Performing Organization Address City/[facility]/Zipcode Phone Number [facility] CLIA: [id number], [address] [place] [address] [address] [facility] Lactic Acid Whole Blood (11/10/2019 6:31 PM CDT) Pathologist Sig nature LACTIC ACID 2.62 (H) 0.50 - 2.20 mmol/L [facility] Specimen Blood - LINE, VENOUS Performing Organization Address City/[facility] Phone Number [facility] CLIA: [id number], [address] [place] [address] [address] [facility] ALPHA FETOPROTEIN (11/10/2019 6:31 PM CDT) Pathologist Sig nature AFP 8.4 (H) <=7.5 ng/mL [facility] Specimen Blood - LINE, VENOUS Narrative Performed At Biotin has been reported to cause a negative bias, int erpret [facility] results relative to patient's use of biotin. Performing Organization Address City/[facility] Cent[facility] Phone Number [facility] CLIA: [id number], [address] [place] [address] [address] [facility] POCT GLUCOSE (AUTOMATED) (11/10/2019 4:30 PM CDT) Pathologist Sig nature POCT GLU 260 (H) 70 - 110 mg/dL [facility] Specimen Blood Performing Organization Address City/[facility] Phone Number [facility] CLIA: [id number], [address] [place] [address] [facility] POCT GLUCOSE (AUTOMATED) (11/10/2019 11:10 AM CDT) Pathologist Sig nature POCT GLU 299 (H) 70 - 110 mg/dL [facility] Specimen Blood Performing Organization Address City/[facility]/Zipcode Phone Number [facility] CLIA: [id number], [address] [place], [place] [address] POCT GLUCOSE (AUTOMATED) (11/10/2019 7:52 AM CDT) Pathologist Sig [facility] POCT GLU 351 (H) 70 - 110 mg/dL [facility] Specimen Blood Performing Organization Address [facility] Phone Number [facility] CLIA: [id number], [address] [place] [address] Lactic Acid Whole Blood (11/10/2019 5:28 AM CDT) Pathologist [facility] LACTIC ACID 2.41 (H) 0.50 - 2.20 mmol/L [facility] Specimen Blood - HAND, LEFT Performing Organization Address [facility] Phone Number [facility] CLIA: [id number], [address] [place] [address] POCT GLUCOSE (AUTOMATED) (11/10/2019 4:17 AM CDT) [facility] POCT GLU 371 (H) 70 - 110 mg/dL [facility] Specimen Blood Performing Organization Address [facility] Phone Number [facility] CLIA: [id number], [address] [place] [address] N-TERMINAL PRO-BNP (11/10/2019 12:57 AM CDT) [facility] NT-proBNP 209 (H) <=125 pg/mL [facility] Specimen Blood - HAND, LEFT Narrative Performed At Biotin has been reported to cause a negative [facility] bias, interpret results relative to patient's use of biotin. Performing Organization Address [facility] Phone Number [facility] CLIA: [id number], [address] [place] [address] HEPATIC FUNCTION PANEL ([id number]) (ALB,T.PRO,BILI T,BU/BC,ALT,AST,ALK PHOS) (11/10/2019 12:57 AM CDT) Pathologist Sig [facility] TOTAL BILI 3.8 (H) 0.1 - 1.1 mg/dL [facility] BILI UNCON 2.9 (H) 0.1 - 1.1 mg/dL [facility] BILI CONJ 0.2 0.0 - 0.3 mg/dL [facility] T PROTEIN 7.5 6.3 - 8.2 g/dL [facility] ALBUMIN 3.7 3.5 - 5.0 g/dL [facility] ALK PHOS 128 (H) 34 - 122 U/L [facility] ALTv 36 (H) 5 - 35 U/L [facility] AST(SGOT) 61 (H) 13 - 40 U/L [facility] Specimen Blood - HAND, LEFT Performing Organization Address [facility] Phone Number [facility] CLIA: [id number], [address] [place] [address] Glycosylated Hemoglobin (A1C) (11/10/2019 12:57 AM CDT) Pathologist Sig nature HGB A1C 8.2 (H) 4.0 - 6.0 % [facility] Specimen Blood - HAND, LEFT Narrative Performed At %A1C (NGSP) Interpretation (ADA) [facility] 4.8-5.6 Normal or (Non-Diabetic Ra nge) 5.7-6.4 Increased Risk (Pre-Diabet ic) >6.5 Diabetes Indicated Performing Organization Address [facility] Phone Number [facility] CLIA: [id number], [address] [place] [address] CBC WITH DIFFERENTIAL (11/10/2019 12:57 AM CDT) WBC 13.47 (H) 4.30 - 11.10 [facility] 10*3/L [facility] RBC 4.15 3.93 - 5.25 [facility] 10*6/L [facility] HGB 12.6 11.6 - 15.0 [facility] g/dL [facility] HCT 38.9 35.7 - 45.2 % [facility] MCV 93.7 80.6 - 95.5 [facility] fL [facility] MCH 30.4 25.9 - 32.8 [facility] pg [facility] MCHC 32.4 31.6 - 35.1 [facility] g/dL [facility] RDW-SD 53.3 (H) 39.0 - 49.9 [facility] fL HOSPITAL LABORATORY RDW-CV 15.7 (H) 12.0 - 15.5 % [facility] PLT 67 (L) 166 - 358 [facility] 10*3/L [facility] MPV 9.7 9.5 - 12.9 fL [facility] IPF % 3.2Comment: Platelet 1.3 - 7.7 % [facility] count measured by HOSPITAL fluorescence method. LABORATORY NRBC/100 WBC 0.0 0.0 - 10.0 [facility] /100 WBCs [facility] NRBC x10^3 <0.01 10*3/L [facility] GRAN MAT (NEUT) % 89.8 % [facility] IMM GRAN % 0.60 % [facility] LYMPH % 6.1 % [facility] MONO % 3.3 % [facility] EOS % 0.0 % [facility] BASO % 0.2 % [facility] GRAN MAT 12.10 (H) 1.88 - 7.09 [facility] x10^3(ANC) 10*3/uL [facility] IMM GRAN x10^3 0.08 (H) 0.00 - 0.06 [facility] 10*3/uL [facility] LYMPH x10^3 0.82 (L) 1.32 - 3.29 [facility] 10*3/uL [facility] MONO x10^3 0.44 0.33 - 0.92 [facility] 10*3/uL [facility] EOS x10^3 <0.03 (L) 0.03 - 0.39 [facility] 10*3/uL [facility] BASO x10^3 0.03 0.01 - 0.07 [facility] 10*3/uL [facility] PLT ESTIMATE Decreased (A) Normal [facility] Specimen Blood - HAND, LEFT Performing Organization Address City/State/Zipcode Phone Number [facility] CLIA: [id number], [address] [place], [place] [address] Basic Metabolic Panel (NA, K, CL, CO2, GLUCOSE, BUN, CREATININE, CA) (11/10/2019 12:57 AM CDT) Pathologist Sig nature NA 139 135 - 145 [facility] mmol/L [facility] K 4.7 3.5 - 5.0 [facility] mmol/L [facility] CL 107 98 - 108 mmol/L [facility] CO2 TOTAL 19 (L) 23 - 31 mmol/L [facility] AGAP 13 2 - 16 [facility] BUN 22 7 - 23 mg/dL [facility] GLUCOSE 344 (H) 70 - 110 mg/dL [facility] CREATININE 0.79 0.50 - 1.04 [facility] mg/dL [facility] CALCIUM 8.3 (L) 8.6 - 10.6 [facility] mg/dL [facility] eGFR Calculation 74.7 mL/min/1.73m2 [facility] ([facility]ORY [place]) eGFR Calculation 90.6 mL/min/1.73m2 [facility] () [facility] Specimen Blood - HAND, LEFT Narrative Performed At [facility] of Glomerular Filtration Rate (GFR) [facility] and Staging of Kidney Disease* + + +- + | GFR (mL/min/1.73 m2) | With Kidney Damage | Without Kidney Damage + + +- + | >90 | Stage one | Normal + + +- + | 60-89 | Stage two | Decreased GFR + + +- + | 30-59 | Stage three | Stage three + + +- + | 15-29 | Stage four | Stage four + + +- + | <15 (or dialysis) | Stage five | Stage five + + +- + *Each stage assumes the associated GFR level has been in effect for at least three months. Stages 1 to 5, with or without kidney disease, indicate chronic kidney disease. Notes: Determination of stages one and two (with eGFR >59mL/min/1.73 m2) requires estimation of kidney damage for at least three months as defined by structural or functional abnormalities of the kidney, manifested by either: Pathological abnormalities or Markers of kidney damage (including abnormalities in the composition of the blood or urine or abnormalities in imaging tests). Performing Organization Address City/State/Zipcode Phone Number [facility] CLIA: [id number], [address] [place], [place] [address] [facility] [address] Lactic Acid Whole Blood (11/10/2019 12:56 AM CDT) Pathologist Sig nature LACTIC ACID 3.22 (H) 0.50 - 2.20 mmol/L [facility] Specimen Blood - HAND, LEFT Performing Organization Address City/[facility]/Zipcode Phone Number [facility] CLIA: [id number], [address] [place], [place] [address] POCT GLUCOSE (AUTOMATED) (11/09/2019 11:07 PM CDT) Pathologist Sig nature POCT GLU 350 (H) 70 - 110 mg/dL [facility] Specimen Blood Performing Organization Address [facility] Phone Number [facility] CLIA: [id number], [address] [place], [place] [address] XR CHEST 1 VW (11/09/2019 9:46 PM CDT) Specimen Impressions Performed At PACS/VR/DOSE No acute intrathoracic abnormality. Preliminary Report Dictated by Resident: Yousuf Moy MD., have reviewed this study and agree with the above report. Narrative Performed At XR CHEST 1 VW PACS/VR/DOSE Comparison: Chest x-ray 07/31/2019 History: fever Findings: The lungs are clear. No focal consolidat ion. No pleural effusion or pneumothorax is identified. The heart is normal in size. No acute osseous abnormality. Multiple surgical staple s overlie the thorax. Procedure Note [facility], Radiant Results Inft User - 2019 10:02 PM CDT XR CHEST 1 VW Comparison: Chest x-ray 07/31/2019 History: fever Findings: The lungs are clear. No focal consolidat ion. No pleural effusion or pneumothorax is identified. The heart is normal in size. No acute osseous abnormality. Multiple s urgical sly overlie the thorax. IMPRESSION No acute intrathoracic abnormality. Preliminary Report Dictated by Resident: Yousuf Moy MD., have reviewed th is study and agree with the above report. Performing Organization Address [facility] Cent[facility] Phone Number PACS/VR/DOSE URINE CULTURE (11/09/2019 9:31 PM CDT) URINE CULTURE 10,000 - 100,000 [facility] CFU/mL mixed aerobic SERVICES organisms - suggests endogenous microbial contamination Specimen Urine - URINE, CLEAN CATCH Performing Organization Address City/State/Zipcode Phone Number [facility] CLIA: [id number], [address] [place], [place] [address] [facility] BASIC METABOLIC PANEL (NA, K, CL, CO2, GLUCOSE, BUN, CREATININE, CA) (11/09/2019 9:02 PM CDT) Pathologist [facility] nature NA 137 135 - 145 [facility] mmol/L [facility] K 5.3 (H) 3.5 - 5.0 [facility] mmol/L [facility] CL 105 98 - 108 mmol/L [facility] CO2 TOTAL 22 (L) 23 - 31 mmol/L [facility] AGAP 10 2 - 16 [facility] BUN 24 (H) 7 - 23 mg/dL [facility] GLUCOSE 339 (H) 70 - 110 mg/dL [facility] CREATININE 0.79 0.50 - 1.04 [facility] mg/dL [facility] CALCIUM 8.1 (L) 8.6 - 10.6 [facility] mg/dL [facility] eGFR Calculation 74.7 mL/min/1.73m2 [facility] ([facility] [place]) eGFR Calculation 90.6 mL/min/1.73m2 [facility] () [facility] Specimen Blood - VENOUS Narrative Performed At [facility] Glomerular Filtration Rate (GFR) [facility] and Staging of Kidney Disease* + + +- + | GFR (mL/min/1.73 m2) | With Kidney Damage | Without Kidney Damage + + +- + | >90 | Stage one | Normal + + +- + | 60-89 | Stage two | Decreased GFR + + +- + | 30-59 | Stage three | Stage three + + +- + | 15-29 | Stage four | Stage four + + +- + | <15 (or dialysis) | Stage five | Stage five + + +- + *Each stage assumes the associated GFR level has been in effect for at least three months. Stages 1 to 5, with or without kidney disease, indicate chronic kidney disease. Notes: Determination of stages one and two (with eGFR >59mL/min/1.73 m2) requires estimation of kidney damage for at least three months as defined by structural or functional abnormalities of the kidney, manifested by either: Pathological abnormalities or Markers of kidney damage (including abnormalities in the composition of the blood or urine or abnormalities in imaging tests). Performing Organization Address [facility] Cent[facility] Phone Number [facility] CLIA: [id number], [address] [place] [address] Lactic Acid Whole Blood (11/09/2019 9:02 PM CDT) Pathologist Sig nature LACTIC ACID 4.56 0.30 - 2.60 mmol/L [facility] Specimen Blood - VENOUS Performing Organization Address [facility] Phone Number [facility] CLIA: [id number], [address] [place] [address] [address] URINALYSIS (11/09/2019 7:31 PM CDT) Pathologist Sig nature APPEARANCE Clear Clear [facility] COLOR Lolis (A) Yellow [facility] PH 5.0 4.8 - 8.0 [facility] SP GRAVITY 1.020 1.003 - 1.030 [facility] GLU U QUAL 500 mg/dL (A) Normal [facility] BLOOD Negative Negative [facility] KETONES 5 mg/dL (A) Negative [facility] PROTEIN Negative Negative [facility] UROBILIN 4.0 mg/dL (A) Normal [facility] BILIRUBIN Negative Negative [facility] NITRITE Negative Negative [facility] LEUK GUADALUPE Negative Negative [facility] RBC/HPF 2 0 - 3 HPF [facility] WBC/HPF <1 0 - 5 HPF [facility] BACTERIA Moderate (A) Negative [facility] MUCOUS Slight (A) Negative LPF [facility] SQ EPITH 4 HPF [facility] HYAL CAST 12 (H) <=2 LPF [facility] Specimen Urine - URINE, CLEAN CATCH Performing Organization Address [facility] Phone Number [facility] CLIA: [id number], [address] [place] [address] [address] ABDOMEN PELVIS W CONTRAST (11/09/2019 7:23 PM CDT) Specimen Impressions Performed At PACS/VR/DOSE 1. Dilated small bowel loops in the uppe r abdomen with loops of jejunum measuring up to 2.4 cm representing part ial small bowel obstruction. Transition point is seen in the central abdomen on 2:63 with distally collapsed loops of jejunum. No evidence of ischemia. 2. Cirrhotic liver morphology with 4.5 c m hypodense segment lesion measuring 47 Hounsfield units concerning for malignancy. Recommend GI consultation and correlation with prior imaging studies and/or follow-up triple phase abdominal CT. 3. Moderate portal hypertension including splenomegaly , dilated main portal vein, small gastroesophageal varices and portal colopathy. 4. Diffuse thickening of the large bowel could represent infectious or inflammatory colitis Findings relayed to Dr. Merida at time o f dictation. Preliminary Report Dictated by Resident: Rolo Marti I, Yousuf Coffman MD., have reviewed this study and agree with the above report. Narrative Performed At CT ABDOMEN AND PELVIS WITH CONTRAST PACS/VR/DOSE HISTORY: Abd pain, acute, generalized, w ith fever COMPARISON: None. TECHNIQUE: Contiguous axial imaging from the level of the lung bases through the pubic symphysis was performed after the ad ministration of 120 cc of intravenous Omnipaque contrast. Coronal and sagi ttal reconstructions were obtained. FINDINGS: LOWER THORAX: Scattered calcified granulomas are seen in the lung bases. No pleural effusion is present. No cardiome alessandra. LIVER: The liver is enlarged measuring n early 20 cm in craniocaudal dimension with heterogenous parenchyma and micronodula r contour, consistent with cirrhosis. A 4.5 cm lobulated hypodense lesion in segment measures 47 Hounsfield units, indeterminate. Scattered subcenti meter calcifications are seen. GALLBLADDER: Prior cholecystectomy. Mild central intrahepatic biliary ductal dilation and prominence of the di stal common bile duct at 7 mm likely representing reservoir phenomenon from prior cholecystectomy. SPLEEN: Splenomegaly up to 16 cm in cran iocaudal dimension. PANCREAS: No ductal dilation or masses. Somewhat atrophic pancreas. ADRENAL GLANDS: No adrenal nodules. KIDNEYS: No hydronephrosis, stones, or solid masses. 3 .0 cm simple cyst at the right midpole. Subcentimeter cortical hypodensitie s bilaterally are too small to characterize. No obstructive nephrolithiasis. No hydronephrosis. PERITONEUM AND RETROPERITONEUM: No free air. Small volume of abdominal ascites in the right subdiaphragmatic sp jalen and in the right paracolic gutter. Diffuse ill-defined mesenteric s tranding in the upper abdomen around the mesenteric root vessels and l arge bowel is nonspecific, but likely related to underlying liver disea se. LYMPH NODES: Mildly enlarged gurwinder hepatis lymph nodes measuring up to 1.2 cm, likely reactive to liver disease. GI TRACT: Small sliding hiatal hernia. T he stomach is distended with gas and layering ingested fluid material. Di lated small bowel loops in the upper abdomen with loops of jejunum measuring up to 2. 4 cm with transition point on 2:63 in the central abdomen wit h collapsed loops of distal jejunum. Fecalization of small bowel suggesting delaye d GI transit. Large bowel wall thickening and decreased enha ncement with surrounding pericolonic stranding consistent present ing portal colopathy. The descending and rectosigmoid colon are no rmally enhancing. Status post appendectomy. PELVIS: The urinary bladder is underdist ended. Prior hysterectomy VESSELS: Dilated main portal vein measuring 1.5 cm. Ti ny gastroesophageal collateral vessels. Conventional hepatic arterial sharon nitish. The mesenteric root vessels are patent. BONES AND SOFT TISSUES: No aggressive or suspicious osseous lesions. Diastasis recti and postsurgical changes in the anterior abdominal wall without competition. Procedure Note [facility], Radiant Results Inft User - 2019 9:[address] ABDOMEN AND PELVIS WITH CONTRAST HISTORY: Abd pain, acute, generalized, w ith fever COMPARISON: None. TECHNIQUE: Contiguous axial imaging from the level of the lung bases through the pubic symphysis was performe d after the administration of 120 cc of intravenous Omnipaque contrast. Co latrice and sagittal reconstructions were obtained. FINDINGS: LOWER THORAX: Scattered calcified granul omas are seen in the lung bases. No pleural effusion is present. No cardiome alessandra. LIVER: The liver is enlarged measuring n early 20 cm in craniocaudal dimension with heterogenous parenchyma a nd micronodular contour, consistent with cirrhosis. A 4.5 cm lobulated hypod ense lesion in segment measures 47 Hounsfield units, indeterminate. Scat tered subcentimeter calcifications are seen. GALLBLADDER: Prior cholecystectomy. Mild central intrahepatic biliary ductal dilation and prominence of the di stal common bile duct at 7 mm likely representing reservoir phenomenon from prior cholecystectomy. SPLEEN: Splenomegaly up to 16 cm in cran iocaudal dimension. PANCREAS: No ductal dilation or masses. Somewhat atrophic pancreas. ADRENAL GLANDS: No adrenal nodules. KIDNEYS: No hydronephrosis, stones, or s olid masses. 3.0 cm simple cyst at the right midpole. Subcentimeter cortica l hypodensities bilaterally are too small to characterize. No obstructive ne phrolithiasis. No hydronephrosis. PERITONEUM AND RETROPERITONEUM: No free air. Small volume of abdominal ascites in the right subdiaphragmatic sp jalen and in the right paracolic gutter. Diffuse ill-defined mesenteric s tranding in the upper abdomen around the mesenteric root vessels and l arge bowel is nonspecific, but likely related to underlying liver disea se. LYMPH NODES: Mildly enlarged gurwinder hepat is lymph nodes measuring up to 1.2 cm, likely reactive to liver disease. GI TRACT: Small sliding hiatal hernia. T he stomach is distended with gas and layering ingested fluid material. Di lated small bowel loops in the upper abdomen with loops of jejunum jina uring up to 2.4 cm with transition point on 2:63 in the central abdomen wit h collapsed loops of distal jejunum. Fecalization of small bowel sug gesting delayed GI transit. Large bowel wall thickening and decreased enha ncement with surrounding pericolonic stranding consistent present ing portal colopathy. The descending and rectosigmoid colon are no rmally enhancing. Status post appendectomy. PELVIS: The urinary bladder is underdist ended. Prior hysterectomy VESSELS: Dilated main portal vein measur ing 1.5 cm. Tiny gastroesophageal collateral vessels. Conventional hepatic arterial anatomy. The mesenteric root vessels are patent. BONES AND SOFT TISSUES: No aggressive or suspicious osseous lesions. Diastasis recti and postsurgical changes in the anterior abdominal wall without competition. IMPRESSION 1. Dilated small bowel loops in the uppe r abdomen with loops of jejunum measuring up to 2.4 cm representing part ial small bowel obstruction. Transition point is seen in the central abdomen on 2:63 with distally collapsed loops of jejunum. No evidence of ischemia. 2. Cirrhotic liver morphology with 4.5 c m hypodense segment lesion measuring 47 Hounsfield units concerning for malignancy. Recommend GI consultation and correlation with prior imaging studies and/or follow-up triple phase abdominal CT. 3. Moderate portal hypertension includin g splenomegaly, dilated main portal vein, small gastroesophageal varices and portal colopathy. 4. Diffuse thickening of the large bowel could represent infectious or inflammatory colitis Findings relayed to Dr. Merida at time o f dictation. Preliminary Report Dictated by Resident: Rolo Marti I, Yousuf Coffman MD., have reviewed th is study and agree with the above report. Performing Organization Address [facility] Phone Number PACS/VR/DOSE BLOOD CULTURE SCREEN (11/09/2019 6:18 PM CDT) Blood No organisms isolated No growth [facility] Culture-Aerobic Comment: HOSPITAL Previous preliminary verifie d result was Culture In Progress on 11/09/2019 at 2201 CDT LABORATORY Previous preliminary verifie d result was No growth at 24 hours on 11/10/2019 at 1901 CDT Previous preliminary verifie d result was No growth at 48 hours on 11/11/2019 at 1901 CDT Previous preliminary verifie d result was No growth at 72 hours on 11/12/2019 at 1901 CDT Blood No organisms isolated No growth [facility] Culture-Anaerobic Comment: [facility] Previous preliminary verifie d result was Culture In Progress on 11/09/2019 at 2201 CDT LABORATORY Previous preliminary verifie d result was No growth at 24 hours on 11/10/2019 at 1901 CDT Previous preliminary verifie d result was No growth at 48 hours on 11/11/2019 at 1901 CDT Previous preliminary verifie d result was No growth at 72 hours on 11/12/2019 at 1901 CDT Specimen Blood - ARM, LEFT Performing Organization Address [facility] Phone Number [facility] CLIA: [id number], [address] [place], [place] [address] Lactic Acid Whole Blood (11/09/2019 6:17 PM CDT) Pathologist Sig nature LACTIC ACID 3.95 0.30 - 2.60 mmol/L [facility] LABORATORY Specimen Blood - VENOUS Performing Organization Address [facility]/Zipcode Phone Number [facility] CLIA: [id number], [address] [place], [place] [address] BLOOD CULTURE SCREEN (11/09/2019 6:16 PM CDT) Blood No organisms isolated No growth [facility] Culture-Aerobic Comment: HOSPITAL Previous preliminary verifie d result was Culture In Progress on 11/09/2019 at 2201 CDT LABORATORY Previous preliminary verifie d result was No growth at 24 hours on 11/10/2019 at 1901 CDT Previous preliminary verifie d result was No growth at 48 hours on 11/11/2019 at 1901 CDT Previous preliminary verifie d result was No growth at 72 hours on 11/12/2019 at 1901 CDT Blood No organisms isolated No growth [facility] Culture-Anaerobic Comment: HOSPITAL Previous preliminary verifie d result was Culture In Progress on 11/09/2019 at 2201 CDT LABORATORY Previous preliminary verifie d result was No growth at 24 hours on 11/10/2019 at 1901 CDT Previous preliminary verifie d result was No growth at 48 hours on 11/11/2019 at 1901 CDT Previous preliminary verifie d result was No growth at 72 hours on 11/12/2019 at 1901 CDT Specimen Blood - ARM, LEFT Performing Organization Address [facility] Phone Number [facility] CLIA: [id number], [address] [place] [address] CORONAVIRUS COVID-19 TESTING (11/09/2019 6:15 PM CDT) Pathologist Sig nature SARS-CoV-2 Not Detected Not Detected [facility] LABORATORY Specimen Swab - NASOPHARYNGEAL SWAB Narrative Performed At [facility] COVID-19 Assay is an isothermal nucleic [facility] LABORATORY acid amplification test intended for the qualitative detection of nucleic acid from SARS-CoV-2 viral RNA in nasopharyngeal ([employer]) specimens. It is used under Emergency Use Authorization (EUA) by FDA. The limit of detection (LOD) of the assay is 125 Genome Equivalents/mL. A positive result is indicative of the presence of SARS-CoV-2 RNA. Clinical correlation with patient history and other diagnostic information is necessary to determine patient infection status. A negative (Not Detected) result does not preclude SARS-CoV-2 infection. Clinical correlation with patient history and other diagnostic information should be used in patient management decisions. Invalid: Please collect a new specimen for repeat patient testing if clinically indicated. Performing Organization Address [facility] Phone Number [facility] CLIA: [id number], [address] [place] [address] aPTT (11/09/2019 6:15 PM CDT) Pathologist Sig nature APTT Patient 25 23 - 38 Seconds [facility] LABORATORY Specimen Blood - VENOUS Narrative Performed At The [facility] patient population mean normal value [facility] LABORATORY for aPTT is 30 seconds. Performing Organization Address City/[facility]/Zipcode Phone Number [facility] CLIA: [id number], [address] [address] PROTHROMBIN TIME / INR (11/09/2019 6:15 PM CDT) PROTIME PATIENT 14.1 12.0 - 14.7 [facility] LABORATORY INR 1.1Comment: Normal [facility] INR <1.1; Warfarin [facility] Therapeutic range LABORATORY 2.0 to 3.0 or 2.5 to 3.5, depending upon the indications. Specimen Blood - VENOUS Performing Organization Address [facility] Phone Number [facility] CLIA: [id number], [address] [place] [address] Type and Screen - ONCE STAT (11/09/2019 6:15 PM CDT) Pathologist Sig nature ABO & RH A Positive LAB Comment: Performed at [facility] Laboratory Services - [facility] Blood Bank [address] [place], [place] [address] Toll Free: [phone] CLIA No. [id number] IAT Negative LAB Comment: Performed at [facility] Laboratory [facility] Blood Bank [address] [place], [place] [address] Toll Free: [phone] CLIA No. [id number] Specimen Blood Performing Organization Address City/[facility]/Zipcode Phone Number BLD LAB LIPASE (11/09/2019 6:15 PM CDT) Pathologist Sig nature LIPASE 120 0 - 220 U/L [facility] LABORATORY Specimen Blood - VENOUS Performing Organization Address City/[facility]/Zipcode Phone Number [facility] CLIA: [id number], [address] [place] [address] COMP. METABOLIC PANEL (86365) (11/09/2019 6:15 PM CDT) Pathologist Sig nature NA 138 135 - 145 [facility] mmol/L [facility] LABORATORY K 5.8 (H) 3.5 - 5.0 [facility] mmol/L [facility] LABORATORY CL 101 98 - 108 mmol/L [facility] LABORAT[facility] CO2 TOTAL 28 23 - 31 mmol/L [facility] LABORATORY AGAP 9 2 - 16 [facility] LABOR[facility] BUN 27 (H) 7 - 23 mg/dL [facility] LABORATORY GLUCOSE 358 (H) 70 - 110 mg/dL [facility] LABORATORY CREATININE 0.92 0.50 - 1.04 [facility] mg/dL [facility] LABORATORY TOTAL BILI 3.3 (H) 0.1 - 1.1 mg/dL [facility] LABORATORY CALCIUM 9.2 8.6 - 10.6 [facility] mg/dL [facility] LABORATORY T PROTEIN 8.6 (H) 6.3 - 8.2 g/dL [facility] LABORATORY ALBUMIN 4.4 3.5 - 5.0 g/dL [facility] LABORATORY ALK PHOS 161 (H) 34 - 122 U/L [facility] LABORAT[facility] ALTv 43 (H) 5 - 35 U/L [facility] LABORATORY AST(SGOT) 82 (H) 13 - 40 U/L [facility] [place] eGFR Calculation 62.7 mL/min/1.73m2 [facility] [place] eGFR Calculation 76.0 mL/min/1.73m2 [facility] ([facility]) [facility] LABORATORY Specimen Blood - VENOUS Narrative Performed At Association of Glomerular Filtration Rate (GFR) [facility] LABORATORY and Staging of Kidney Disease* + + +- + | GFR (mL/min/1.73 m2) | With Kidney Damage | Without Kidney Damage + + +- + | >90 | Stage one | Normal + + +- + | 60-89 | Stage two | Decreased GFR + + +- + | 30-59 | Stage three | Stage three + + +- + | 15-29 | Stage four | Stage four + + +- + | <15 (or dialysis) | Stage five | Stage five + + +- + *Each stage assumes the associated GFR level has been in effect for at least three months. Stages 1 to 5, with or without kidney disease, indicate chronic kidney disease. Notes: Determination of stages one and two (with eGFR >59mL/min/1.73 m2) requires estimation of kidney damage for at least three months as defined by structural or functional abnormalities of the kidney, manifested by either: Pathological abnormalities or Markers of kidney damage (including abnormalities in the composition of the blood or urine or abnormalities in imaging tests). Performing Organization Address City/State/Zipcode Phone Number [facility] CLIA: [id number], [address] [place], [place] [address] CBC WITH DIFFERENTIAL (11/09/2019 6:15 PM CDT) WBC 20.39 (H) 4.30 - 11.10 [facility] 10*3/L [facility] LABORATORY RBC 4.71 3.93 - 5.25 [facility] 10*6/L [facility] LABORATORY HGB 14.4 11.6 - 15.0 [facility] g/dL [facility] LABORATORY HCT 43.2 35.7 - 45.2 % [facility] LABORATORY MCV 91.7 80.6 - 95.5 [facility] LABORATORY MCH 30.6 25.9 - 32.8 [facility] LABORATORY MCHC 33.3 31.6 - 35.1 [facility] g/dL [facility] LABORATORY RDW-SD 50.8 (H) 39.0 - 49.9 [facility] LABORATORY RDW-CV 15.3 12.0 - 15.5 % [facility] LABORATORY PLT 82 (L) 166 - 358 [facility] 10*3/L [facility] LABORATORY MPV 10.4 9.5 - 12.9 fL [facility] LABORATORY IPF % 3.4Comment: Platelet 1.3 - 7.7 % [facility] count measured by HOSPITAL fluorescence method. LABORATORY NRBC/100 WBC 0.0 0.0 - 10.0 [facility] /100 WBCs [facility] LABORATORY NRBC x10^3 <0.01 10*3/L [facility] LABORATORY GRAN MAT (NEUT) % 92.2 % [facility] LABORATORY IMM GRAN % 0.80 % [facility] LABORATORY LYMPH % 3.6 % [facility] LABORATORY MONO % 3.2 % [facility] LABORATORY EOS % 0.0 % [facility] LABORATORY BASO % 0.2 % [facility] LABORATORY GRAN MAT 18.80 (H) 1.88 - 7.09 [facility] x10^3(ANC) 10*3/uL HOSPITAL LABORATORY IMM GRAN x10^3 0.16 (H) 0.00 - 0.06 [facility] 10*3/uL [facility] LABORATORY LYMPH x10^3 0.73 (L) 1.32 - 3.29 [facility] 10*3/uL [facility] LABORATORY MONO x10^3 0.65 0.33 - 0.92 [facility] 10*3/uL [facility] LABORATORY EOS x10^3 <0.03 (L) 0.03 - 0.39 [facility] 10*3/uL [facility] LABORATORY BASO x10^3 0.05 0.01 - 0.[address]3/uL [facility] LABORATORY Specimen Blood - VENOUS Performing Organization Address City/State/Zipcode Phone Number [facility] CLIA: [id number], [address] [place], [place] [address] documented in this encounter Visit Diagnoses Diagnosis Fever in adult - Primary Melena Blood in stool Vomiting and diarrhea Vomiting alone Suspected 2018 Novel Coronavirus Infecti on Hyperkalemia Hyperpotassemia Partial small bowel obstruction Unspecified intestinal obstruction Colitis Other and unspecified noninfectious eren roenteritis and colitis Gastrointestinal hemorrhage with melena Hematochezia Blood in stool C. difficile colitis Intestinal infection due to clostridium difficile Hematemesis with nausea Hematemesis Obesity (BMI 30-39.9) Obesity, unspecified documented in this encounter Administered Medications Medication Order MAR Action Action Date Dose Rate Site carvediloL (COREG) tablet 6.25 Given 11/16/2019 9:28 AM CDT 6.2 5 mg mg 6.25 mg, Oral, BID MEALS, First dose on 11/15/19 at 0800, Until Discontinued, Routine Given 11/15/2019 7:52 PM CDT 6.25 mg Given 11/15/2019 8:20 AM CDT 6.25 mg dextrose 10% (D10W) bolus infusion 250 m L 250 mL, IV Infusion, PRN - SEE INSTRUCTI ONS, For glucose < 70 and patient unable to swallow, Starting Fri11/10/19 at 1610, D extrose 10% 250 mL bag contains: 10 gm = 100 mL 20 gm = 200 mL 25 gm = 250 mL (whole bag) The maximum rate at which dextrose can be infused without producing glycosuria i s 0.5 g/kg/hour. BUD: If wrapper is open bag is good for 30 days at room temper ature. , furosemide (LASIX) tablet 40 mg 40 mg, Oral, DAILY, First dose on 11/30 at 1030, Until Discontinued, Routine glucagon (GLUCAGEN DIAGNOSTIC KIT) injec tion 1 mg 1 mg, Intramuscular, PRN, Starting Fri at 1608, Until Discontinued, ESSIE, Blood Glucose < or = 70 mg/dL and patient is unable to swallow or has mental changes. insulin glargine (LANTUS U-100) injectio n 21 Units 21 Units (0.25 Units/kg/day 84 kg), Subcutaneous, QHS, First dose on Fri11/16/19 at 2100, Until Discontinued, Routine methadone (DOLOPHINE HCL) tablet 30 mg Given 11/16/2019 9:28 AM CDT 30 mg 30 mg, Oral, DAILY, First dose on Fri11/15/19 at 1045, Until Discontinued, Routine Given 11/15/2019 11:00 AM CDT 30 mg pantoprazole (PROTONIX) EC tablet 40 mg Given 11/16/2019 9:28 AM CDT 40 mg 40 mg, Oral, BID, First dose on Fri11/13/19 at 2000, Until Discontinued, Routine Given 11/15/2019 7:52 PM CDT 40 mg Given 11/15/2019 8:20 AM CDT 40 mg proMETHazine (PHENERGAN) 25 mg in NaCl 0.9% Given 11/15/2019 9:41 AM CDT 25 mg (NS) 50 mL piggyback 25 mg, IV Piggyback, Q6HPRN, Starting Fri11/10/19 at 0209, Until Discontinued, 50 mL Given 11/12/2019 9:58 AM CDT 25 mg Given 11/10/2019 7:37 PM CDT 25 mg QUEtiapine (SEROQUEL) tablet 300 mg Given 11/15/2019 7:52 PM CDT 300 mg 300 mg, Oral, QHS, First dose on Fri11/14/19 at 2100, Until Discontinued, Routine Given 11/14/2019 9:07 PM CDT 300 mg Sliding Scale Insulin - Aspart (NOVOLOG) + Fsbg Testing Subcutaneous, Q4H, First dose on 11/15 at 0800, Until Discontinued, Routine vancomycin (FIRVANQ) 50 mg/mL oral solution Given 11/2019 12:52 PM CDT 500 mg 500 mg 500 mg, Oral, QID, First dose on Fri11/12/19 at 1200, Until Discontinued, Routine, Reason for Anti-Infective: Documented Infection, Documented Infection Site: Abdominal, Duration of Therapy: 7 days Given 11/16/2019 9:28 AM CDT 500 mg Given 11/15/2019 10:13 PM CDT 500 mg Medication Order MAR Action Action Date Dose Rate Site furosemide (LASIX) injection 40 mg Given 11/12/2019 12:15 PM CDT 40 mg 40 mg, Slow IV Push, ONCE, 1 dose, Fri11/12/19 at 1130, Routine furosemide (LASIX) tablet 80 mg Given 11/14/2019 8:44 AM CDT 80 mg 80 mg, Oral, DAILY, First dose on Fri11/13/19 at 1200, Until Discontinued, Routine Given 11/13/2019 12:41 PM CDT 80 mg insulin glargine (LANTUS U-100) Given 11/11/2019 9:00 AM CDT 10 Units Abdomen injection 10 Units 10 Units, Subcutaneous, DAILY, First dose on Fri11/10/19 at 1230, Until Discontinued, Routine Given 11/10/2019 1:00 PM CDT 10 Units Left Upper Arm-SC insulin glargine (LANTUS U-100) Given 11/15/2019 10:13 PM CDT 17 Units Abdomen-SC injection 17 Units 17 Units (rounded from 16.8 Units = 0.2 Units/kg/day 84 kg), Subcutaneous, QHS, First dose on Fri11/15/19 at 2100, Until Discontinued, Routine iohexol (OMNIPAQUE 350 BULK-150 mL) Given 11/09/2019 7:18 PM CD T 120 mL injection 120 mL 120 mL, Intravenous, ONCE, 1 dose, Fri11/09/19 at 1930, Routine iohexol (OMNIPAQUE 350 BULK-150 mL) Given 11/11/2019 9:54 AM CD T 120 mL injection 120 mL 120 mL, Intravenous, ONCE, 1 dose, [facility] 11/11/19 at 1015, Routine iohexol (OMNIPAQUE 350 BULK-150 mL) Given 11/12/2019 9:25 AM CD T 120 mL injection 120 mL 120 mL, Intravenous, ONCE, 1 dose, Fri11/12/19 at 0945, Routine KCL (KLOR-CON M20) tablet 40 mEq Given 11/14/2019 11:38 AM CDT 40 mEq 40 mEq, Oral, ONCE NOW, 1 dose, [place] 11/14/19 at 1230, Routine KCL (POTASSIUM CHLORIDE) 40 mEq in NaCl 0.9% Given 07/2019 11:27 AM CDT 40 mEq (NS) piggyback 40 mEq, IV Piggyback, ONCE, 1 dose, Fri11/12/19 at 1000, 250 mL lactated ringers IV infusion New Bag 11/10/2019 5:21 PM CDT 1,000 mL 125 mL/hr 1,000 mL at 125 mL/hr, 1,000 mL, IV Infusion, CONTINUOUS, Starting Fri11/10/19 at 1730, Until Fri11/12/19 at 0715, Routine linezolid in dextrose 5% (ZYVOX) 600 mg/300 Given 07/2019 8:39 AM CDT 600 mg mL infusion 600 mg 600 mg, IV Piggyback, Q12H, First dose on Fri11/11/19 at 0800, Until Discontinued, 300 mL, Reason for Anti-Infective: Empiric Therapy for Suspected Infection, Empiric Therapy Site: Abdominal, Duration of therapy: 7 days, Restricted use approved by: Complicated intra-abdominal infection Given 11/11/2019 8:11 PM CDT 600 mg Given 11/11/2019 11:05 AM CDT 600 mg magnesium sulfate in water 2 gram/50 mL (4 %) New Bag 11:38 AM CDT 2 g infusion 2 g 2 g, IV Piggyback, ONCE, 1 dose, [place] 11/14/19 at 1230, Routine magnesium sulfate in water 4 gram/50 mL (8 %) New Bag 3:23 AM CDT 4 g IV Piggyback 4 g 4 g, IV Piggyback, ONCE, 1 dose, [place] 11/11/19 at 0330, Routine magnesium sulfate in water 4 gram/50 mL (8 %) New Bag 10:41 AM CDT 4 g IV Piggyback 4 g 4 g, IV Piggyback, ONCE, 1 dose, Fri11/12/19 at 1000, Routine meropenem (MERREM) 500 mg in NaCl 0.9% (NS) Given 07/2019 5:20 AM CDT 500 mg 50 mL MINI-BAG 500 mg, IV Piggyback, Administer over 60 Minutes, Q6H ABX, First dose on Fri11/10/19 at 1715, Until Discontinued, ESSIE, Restricted use approved by: [address], Reason for Anti-Infective: Empiric Therapy for Suspected Infection, Empiric Therapy Site: Abdominal, Duration of therapy: 7 days Given 11/11/2019 11:28 PM CDT 500 mg Given 11/11/2019 5:15 PM CDT 500 mg metroNIDAZOLE (FLAGYL I.V.) Piggyback 50 0 mg Given 11/15/2019 4:27 AM CDT 500 mg 500 mg, IV Piggyback, Q8H ABX, First dose on Fri11/12/19 at 1230, Until Discontinued, 100 mL, Reason for Anti-Infective: Documented Infection, Documented Infection Site: Abdominal, Duration of Therapy: 7 days Given 11/14/2019 9:07 PM CDT 500 mg Given 11/14/2019 11:38 AM CDT 500 mg morpHINE injection 2 mg Given 11/10/2019 9:41 AM CDT 2 mg 2 mg, Slow IV Push, Q4HPRN, Starting Fri11/09/19 at 2306, Until Fri11/10/19 at 1306, Routine, Pain (scale 7-10) Given 11/10/2019 5:12 AM CDT 2 mg Given 11/09/2019 11:45 PM CDT 2 mg morpHINE injection 2 mg Given 11/11/2019 12:22 AM CDT 2 mg 2 mg, Slow IV Push, Q2HPRN, Starting Fri11/10/19 at 1315, Until Fri11/10/19 at 2214, Routine, Pain (scale 7-10) Given 11/10/2019 8:00 PM CDT 2 mg Given 11/10/2019 3:43 PM CDT 2 mg morpHINE injection 2 mg Given 11/12/2019 7:48 AM CDT 2 mg 2 mg, Slow IV Push, Q6HPRN, Starting [place] 11/11/19 at 0033, Until Fri11/12/19 at 1232, Routine, Pain (scale 7-10) Given 11/12/2019 2:05 AM CDT 2 mg Given 11/11/2019 8:11 PM CDT 2 mg morpHINE injection 2 mg Given 11/15/2019 5:03 AM CDT 2 mg 2 mg, Slow IV Push, Q8HPRN, Starting Fri11/12/19 at 1545, Until 11/15/19 at 1047, Routine, Pain (scale 7-10) Given 11/14/2019 9:07 PM CDT 2 mg Given 11/14/2019 12:06 PM CDT 2 mg morpHINE injection 4 mg Given 11/09/2019 6:30 PM CDT 4 mg 4 mg, Slow IV Push, ONCE, 1 dose, Fri11/09/19 at 1915, STAT NaCl 0.9% (NS) bolus infusion New Bag 11/09/2019 6:24 PM CDT 1,000 mL 999 mL/hr 1,000 mL at 999 mL/hr, 1,000 mL, IV Infusion, ONCE, 1 dose, Fri11/09/19 at 1815, ESSIE NaCl 0.9% (NS) bolus infusion New Bag 11/09/2019 7:32 PM CDT 1,000 mL 999 mL/hr 1,000 mL at 999 mL/hr, 1,000 mL, IV Infusion, ONCE, 1 dose, Fri11/09/19 at 1830, ESSIE NaCl 0.9% (NS) IV infusion 1,000 New Bag 11/09/2019 9:43 PM C DT 1,000 mL 125 mL/hr mL at 125 mL/hr, Intravenous, ONCE, 1 dose, Fri11/09/19 at 2145, ESSIE NaCl 0.9% (NS) IV infusion 1,000 New Bag 11/10/2019 7:30 AM C DT 1,000 mL 125 mL/hr mL at 125 mL/hr, IV Infusion, CONTINUOUS, Starting Fri11/10/19 at 0015, Until Fri11/10/19 at 1225, Routine NaCl 0.9% (NS) IV infusion 1,000 mL Rate Change 11/10/2019 12:41 PM CDT 75 mL/hr at 75 mL/hr, IV Infusion, CONTINUOUS, Starting Fri11/10/19 at 1230, Until Fri11/12/19 at 0715, Routine octreotide (SANDOSTATIN) 1,250 New Bag 11/13/2019 5:30 AM CDT 50 mcg/hr 10 mL/hr mcg in NaCl 0.9% (NS) infusion 50 mcg/hr (10 mL/hr), IV Infusion, CONTINUOUS, Starting Fri11/10/19 at 0115, Until 11/13/19 at 0910 New Bag 11/12/2019 4:45 AM CDT 50 mcg/hr 10 mL/hr New Bag 11/11/2019 3:33 AM CDT 50 mcg/hr 10 mL/hr pantoprazole (PROTONIX) 40 mg in NaCl 0.9% Given 11/09/2019 6:2 7 PM CDT 40 mg (NS) 100 mL MINI-BAG 40 mg, IV Piggyback, ONCE, 1 dose, Fri11/09/19 at 1915, 100 mL pantoprazole (PROTONIX) 80 mg in New Bag 11/12/2019 9:33 PM C DT 8 mg/hr 50 mL/hr NaCl 0.9% (NS) 500 mL infusion 8 mg/hr (50 mL/hr), IV Piggyback, CONTINUOUS, Starting Fri11/10/19 at 0115, Until 11/13/19 at 0932, 500 mL New Bag 11/12/2019 11:27 AM CDT 8 mg/hr 50 mL/hr New Bag 11/11/2019 9:07 PM CDT 8 mg/hr 50 mL/hr piperacillin-tazobactam (ZOSYN) 3.375 Given 11/10/2019 11:52 AM CDT 3.375 g gram/50 mL Piggyback RTU 3.375 g 3.375 g, IV Piggyback, Q6H ABX, First dose on Fri11/10/19 at 0015, Until Discontinued, 50 mL, Reason for Anti-Infective: Empiric Therapy for Suspected Infection, Empiric Therapy Site: Abdominal, Duration of therapy: 72 hours Given 11/10/2019 5:38 AM CDT 3.375 g Given 11/09/2019 11:49 PM CDT 3.375 g proMETHazine (PHENERGAN) 25 mg in NaCl 0.9% Given 11/09/2019 6:24 PM CDT 25 mg (NS) 50 mL piggyback 25 mg, IV Piggyback, ONCE, 1 dose, Fri11/09/19 at 1915, 50 mL proMETHazine (PHENERGAN) 25 mg in NaCl 0.9% Given 11/09/2019 9:08 PM CDT 25 mg (NS) 50 mL piggyback 25 mg, IV Piggyback, ONCE, 1 dose, Fri11/09/19 at 2215, 50 mL QUEtiapine (SEROQUEL) tablet 100 mg Given 11/13/2019 12:25 AM CDT 100 mg 100 mg, Oral, QHS, First dose on Fri11/13/19 at 0015, Until Discontinued, Routine QUEtiapine (SEROQUEL) tablet 100 mg Given 11/13/2019 10:03 PM CDT 100 mg 100 mg, Oral, QHS, First dose on Fri11/13/19 at 2100, Until Discontinued, Routine QUEtiapine (SEROQUEL) tablet 200 mg Given 11/14/2019 12:43 AM CDT 200 mg 200 mg, Oral, ONCE, 1 dose, Fri11/14/19 at 0145, Routine Sliding Scale Insulin - Aspart Given 11/13/2019 4:26 AM CDT 1 U nits Abdomen-SC (NOVOLOG) + Fsbg Testing Subcutaneous, Q4H, First dose on Fri11/10/19 at 1630, Until Discontinued, Routine Given 11/12/2019 11:34 PM CDT 1 Units Abdo men-SC Given 11/12/2019 7:58 PM CDT 2 Units Abdo men-SC Sliding Scale Insulin - Aspart Given 11/15/2019 2:13 PM CDT 5 U nits Abdomen-SC (NOVOLOG) + Fsbg Testing Subcutaneous, TID MEALS+HS, First dose on Fri11/13/19 at 1700, Until Discontinued, Routine Given 11/15/2019 8:19 AM CDT 3 Units Abdo men-SC Given 11/14/2019 4:19 PM CDT 5 Units Abdo men-SC Sliding Scale Insulin - Lispro Given 11/10/2019 11:38 AM 4 Units Left Upper (HumaLOG) + Fsbg Testing CDT Arm-SC Subcutaneous, Q4H, First dose on Fri11/10/19 at 0400, Until Discontinued, Routine Given 11/10/2019 8:29 AM CDT 5 Units Left Upper Arm-SC Given 11/10/2019 5:09 AM CDT 5 Units Righ t Upper Arm-SC vancomycin (VANCOCIN) 500 mg in NaCl 0.9% Given 11/14/2019 6:14 AM CDT 500 mg (NS) enema 500 mg, Rectal, Q6H ABX, First dose on Fri11/12/19 at 1245, Until Discontinued, 100 mL, Reason for Anti-Infective: Documented Infection, Documented Infection Site: Abdominal, Duration of Therapy: 7 days Given 11/14/2019 12:43 AM CDT 500 mg Given 11/13/2019 5:56 PM CDT 500 mg vancomycin 1000 mg in NS 200 mL RTU IV Given 11/09/2019 9:45 PM CDT 1,000 mg Piggyback 1,000 mg 1,000 mg, IV Piggyback, ONCE, 1 dose, 11/09/19 at 2245, Reason for Anti-Infective: Empiric Therapy for Suspected Infection, Empiric Therapy Site: Abdominal, Duration of therapy: 72 hours documented in this encounter Insurance Payer Benefit Plan / Subscriber ID Effective Dates Phone Addre ss Type Group MEDICARE MEDICARE PART xxxxxxxxxxx 2006-Presen [phone] Medicare A & B t 2 [id number] KAREN BASS [id number] [facility] MEDICAID OF xxxxxxxxx 2018-Prese [phone] [address] [place] [address] [id number] [place] [address] (Work) [id number] documented as of this encounter
--- OUTSIDE RECORDS SUMMARY | 2020-01-25 14:21 | XMS REPORT | Summary of Care ---
:1960 Author Organization [facility] Address [address] [place] [id number] Care Team Providers Name Role Phone Chito Barros Primary Care Provider Reason for Visit Reason Comments Transition Of Care Encounter Details Date Type Department Care Team Description 11/17/2019 Transition of Care [facility] Yas Cardenas Transition Of Care [facility] [place] PANKAJ [phone] Allergies Active Allergy Reactions Severity Noted Date [...] Type Group MEDICARE MEDICARE PART xxxxxxxxxxx 2006-Micheal [phone] [facility] Medicare A & B t 2 [id number] KAREN BASS [id number] [facility] MEDICAID OF xxxxxxxxx 2018-Prese [phone] Medicaid [place] nt [address] [id number] [place] [address] documented as of this encounter
--- OUTSIDE RECORDS SUMMARY | 2020-01-25 14:22 | XMS REPORT | Summary of Care ---
:1960 Author Organization [facility] - [facility] Address [address] [place] [id number] Care Team Providers Name Role Phone Chito Barros Primary Care Provider Reason for Referral MRI/CAT Scan (STAT) Status Reason Specialty Diagnoses / Referred By Referred To Procedures Contact Contact New Request Diagnostic Diagnoses SOB (shortness of breath) Oscar Rdz, Radiology Procedures CT ABDOMEN PELVIS W CONTRAST LEASE ADMINISTRATION SUPERVIS[address] [phone] Radiology Services (STAT) Status Reason Specialty Diagnoses / Referred By Referred To Procedures Contact Contact New Request Diagnostic Diagnoses SOB (shortness of breath) Oscar Rdz, Radiology Procedures Chest [address] [id number] Reason for Visit Reason Comments Shortness of Breath Auth/Cert Status Reason Specialty Diagnoses / Referred By Referred To Procedures Contact Contact Emergency Medicine Adc Em ergency Dept [address] [place] [address] [place] [address] Fax: Encounter Details Date Type Department Care Team Description 12/15/2019 - Emergency ADC-Emergency Oscar Rdz F LOAN COORDINATOR SOB (shortness of breath) (Primary Dx); 12/16/[address] [place] [address] Anasarca; [address] [place] [address] Dr [place], [place] [phone] Allergies Active Allergy Reactions Severity Noted Date Comments Propoxyphene N-Acetaminophen Other - See comments 02/2018 migraine Ondansetron Itching 11/09/2019 Ketorolac Rash Medium 11/30/2019 Tramadol Other - See comments 02/18/2018 Anxious Azithromycin Rash 02/18/2018 documented as of this encounter (statuses as of 12/16/2019) Medications Medication Sig Dispensed Refills Start Date [...] melena, C. difficile colitis, Hematemesis with nausea vancomycin 250 mg Take 2 capsules 22 capsule 0 11/18/2019 Active capsuleIndications: C. by mouth 4 difficile colitis (four) times daily. documented as of this encounter (statuses as of 12/16/2019) Active Problems Problem Noted Date Obesity (BMI 30-39.9) 11/12/2019 Hematemesis 11/10/2019 Melena 11/10/2019 Partial small bowel obstruction 11/09/2019 Hyperglycemia 07/31/2019 Cocaine dependence, continuous 10/03/2005 documented as of this encounter (statuses as of 12/16/2019) Social History Tobacco Use Types Packs/Day Years [...] been in contact with No / Unsure 12/15/2019 7:01 PM CDT someone who was confirmed or suspected to have Coronavirus / COVID-19? documented as of this encounter Last Filed Vital Signs Vital Sign Reading Time Taken Comments Blood Pressure 147/73 12/16/2019 12:00 AM CDT Pulse 88 12/16/2019 12:00 AM CDT Temperature 37.6 C (99.7 F) 12/15/2019 7:14 PM CDT Respiratory Rate 15 12/15/2019 10:45 PM CDT Oxygen Saturation 97% 12/16/2019 12:00 AM CDT Inhaled Oxygen Concentration - - Weight 80.5 kg (177 lb 8 oz) 12/15/2019 7:45 PM CDT Height 160 cm (5' 3") 12/15/2019 7:45 PM CDT Body Mass Index 31.44 12/15/2019 7:45 PM CDT documented in this encounter Discharge Instructions Oscar Hawley FNP - 12/16/2019DIAGNOSIS 1. Leg swelling 2. Anasarca NO LIFE-THREATENING FINDINGS ON TODAY'S EXAM. PROCEDURES IN THE ER TODAY: Labs, IV, xray, CT MEDICATIONS ADMINISTERED IN THE ER TODAY: Fentanyl, IV contrast YOUR PRESCRIPTIONS AND [id number] MEDICATION RECOMMENDATIONS: Take your medications as prescribed FOLLOW-UP RECOMMENDATIONS: RECOMMEND FOLLOW-UP WITH A PRIMARY CARE PROVIDER OR SPECIALIST IN 2-5 DAYS, ESPECIALLY IF NO IMPROVEMENT IN SYMPTOMS. MAY FOLLOW-UP WITH A PROVIDER OF YOUR CHOICE, SUCH : 1. A PHYSICIAN OF YOUR CHOICE 2. [facility], . LOCATIONS IN [facility] 3. [facility], [address], [place]; [phone] OR, IF YOU WISH TO FOLLOW-UP WITHIN THE [facility], MAY TRY THESE OPTIONS (CLINIC APPOINTMENTS AVAILABLE ON [id number] BASIS): 1. SCHEDULE AN APPOINTMENT ONLINE AT WWW[facility] 2. OR CALL THE [facility] ACCESS CENTER AT OR 3. OR CALL YOUR [facility] PHYSICIAN'S OFFICE DIRECTLY IF YOU ARE ALREADY AN ESTABLISHED [facility] PATIENT. RETURN TO ER FOR WORSENING OF SYMPTOMS. Return to the ER for chest pain, shortness of breath, intractable vomiting or fever greater than 100.4 AttachmentsThe following attachments cannot be sent through Care Everywhere. Diuretic, Taking a (Maltese)Lymphedema (Maltese)documented in this encounter Plan of Treatment Health Maintenance Due Date Last Done Comments HEPATITIS C (HCV) SCREEN 1960 PNEUMOCOCCAL 0-64 YEARS COMBINED SERIES (1 of 3 - 1967 PCV13) DTaP,Tdap,and Td Vaccines (1 - Tdap) 1972 Depression Screening 1973 PAP SMEAR 1982 Breast Cancer Screening (MAMMOGRAM) 2001 COLONOSCOPY 2011 Zoster Recombinant Vaccine (SHINGRIX) (1 of 2) 2011 LUNG CANCER SCREEN: Recommended for age 55-80 with 30 + 05/04/20 16 pack year history INFLUENZA VACCINE (Season Ended) 2020 documented as of this encounter Procedures Procedure Name Priority Date/Time Associated Comments Diagnosis XR CHEST 2 VW STAT 12/15/2019 8:47 SOB (shortness of Resul ts for this PM CDT breath) procedure are i n the results section. CT ABDOMEN PELVIS W STAT 12/15/2019 8:45 SOB (shortness of Results for this CONTRAST PM CDT breath) procedure are i n the results section. COVID-19 (ID NOW STAT 12/15/2019 7:33 SOB (shortness of Re sults for this RAPID TESTING) PM CDT breath) procedure are in the results section. URINALYSIS STAT 12/15/2019 7:33 SOB (shortness of Result s for this PM CDT breath) procedure are i n the results section. PROTHROMBIN TIME / STAT 12/15/2019 7:33 SOB (shortness of Results for this INR PM CDT breath) procedure are i n the results section. POCT TEST ESSIE 12/15/2019 7:26 SOB (shortness of Results for this PM CDT breath) procedure are i n the results section. CBC WITH DIFFERENTIAL STAT 12/15/2019 7:19 SOB (shortness of Results for this PM CDT breath) procedure are i n the results section. N-TERMINAL PRO-BNP STAT 12/15/2019 7:19 SOB (shortness of Results for this PM CDT breath) procedure are i n the results section. CBC WITH DIFFERENTIAL Routine 12/15/2019 7:19 SOB (shortness of Results for this PM CDT breath) procedure are i n the results section. BASIC METABOLIC PANEL STAT 12/15/2019 7:19 SOB (shortness of Results for this (NA, K, CL, CO2, PM CDT breath) procedure a re in GLUCOSE, BUN, the results CREATININE, CA) section. HEPATIC FUNCTION STAT 12/15/2019 7:19 SOB (shortness of Re sults for this PANEL ([address]) PM CDT breath) procedure are in (ALB,T.PRO,BILI the results T,BU/BC,ALT,AST,ALK section. PHOS) TROPONIN I STAT 12/15/2019 7:19 SOB (shortness of Result s for this PM CDT breath) procedure are i n the results section. LIPASE STAT 12/15/2019 7:19 SOB (shortness of Result s for this PM CDT breath) procedure are i n the results section. EKG-12 LEAD STAT 12/15/2019 7:14 PM CDT CONSENT/REFUSAL FOR Routine 12/15/2019 7:01 DIAGNOSIS AND PM CDT TREATMENT documented in this encounter Results Chest 2 Views (12/15/2019 8:47 PM CDT) Specimen Impressions Performed At PACS/VR/DOSE No acute cardiopulmonary process. Preliminary Report Dictated by Resident: Maria Del Carmen Youngblood I, Liz Bella MD., have reviewe d this study and agree with the above report. Narrative Performed At XR CHEST 2 VW PACS/VR/DOSE Comparison: 11/09/2019 History: sob Findings: The lungs exhibit mildly prominent basilar reticular n odular opacities. No pleural effusion, focal consolidation, o r pneumothorax is identified. Surgical sly are scattered over the thorax. The cardiomediastinal silhouette is with in normal limits for size. No acute osseous abnormality is present. Procedure Note [facility], Radiant Results Inft User - 2019 9:50 PM CDT XR CHEST 2 VW Comparison: 11/09/2019 History: sob Findings: The lungs exhibit mildly prominent basil ar reticular nodular opacities. No pleural effusion, focal consolidation, o r pneumothorax is identified. Surgical sly are scattered over the thorax. The cardiomediastinal silhouette is with in normal limits for size. No acute osseous abnormality is present. IMPRESSION No acute cardiopulmonary process. Preliminary Report Dictated by Resident: Liz Sheffield MD., have reviewed this study and agree with the above report. Performing Organization Address City/State/Zipcode Phone Number PACS/VR/DOSE CT ABDOMEN PELVIS W CONTRAST (12/15/2019 8:45 PM CDT) Specimen Impressions Performed At PACS/VR/DOSE 1. Short segments of colonic wall thickening with en gorgement of the vasa recta and surrounding inflammatory stran ding at the hepatic flexure and splenic flexure. These findings are favored to represe nt colitis which may be infectious or inflammatory rather sheryl n hepatic colopathy. 2. Changes of cirrhosis with sequelae of portal hypertension including small volume ascites, small gastroesopha geal varices, and splenomegaly. 3. Irregular hypoattenuating lesion at the inferior aspect of segment , essentially unchanged from the October 2019. This findin g likely represents posttreatment change from the residual treated segment HCC. Attention on follow-up. 4. Skin thickening noted over the left breast, correlation with mammography is recommended. Preliminary Report Dictated by Resident: Liz Morley MD., have reviewe d this study and agree with the above report. Narrative Performed At EXAM: CT ABDOMEN AND PELVIS WITH CONTRAS T PACS/VR/DOSE HISTORY: Abdominal distention COMPARISON: 11/30/2019. TECHNIQUE AND FINDINGS: Contiguous axial imaging from the level of the lung bases through the pubic symphysis was pe rformed after the uncomplicated administration of 120 cc of intravenous Omnipaque contrast. Coronal and sagittal reconstructions were obtained. Auto mA and/or iterative reconstruction were used to reduce radia tion dose. FINDINGS: Subsegmental atelectasis is noted in the lingula, right middle lobe, and lower lobes. Calcified granulomas are pr esent within both lower lobes. The liver is enlarged measuring 20.3 cm in the craniocaudal dimension. Cirrhotic liver morphology. Nodular cont our. There is an irregular, wedge-shaped 5.5 x 1.8 cm hypoattenuating lesion in se gment with areas of subcapsular retraction. Punctate calcifications in segment V and . No additional focal lesions are seen. Statu s post cholecystectomy. Mild dilatation of the common bile duct to 10 mm, likely se condary to reservoir phenomenon. The spleen is enlarged measuring 15.1 cm in the cranio caudal dimension. The adrenals and pancreas are unremarkable. 2.9 cm right interpolar region renal cyst. Additional cortical hypodensities are too small to accurately characterize. Small sliding-type hiatal hernia. There is a short segment of thickened transverse colon at the level of the hep atic flexure with engorgement of the vasa recta and mild surrounding infl ammatory changes. A similar thickened loop of bowel with surrounding inflammatory changes is noted at the splenic flexure (2:63). Small volume perihepatic ascites. A small amount of fl uid tracks along the left paracolic gutter. Prominent portacaval lymph node s measure up to 1.3 cm. A lymph node at the gurwinder hepatis me asures 1.2 cm in the short axis. Moderate calcified and noncalcified plaq ue affect the aortoiliac vasculature. Small esophageal varices gonzalez spected. Body wall anasarca. Mild spondylosis at L5-S1. Scarrin g along the anterior abdominal wall is likely postsurgical. There is soft t issue density along the medial margin of the bilateral breas ts, more prominent on the right, likely represent postsurgical change. There are adjace nt surgical sly bilaterally as well as in the axilla. Sk in thickening is noted over the left breast. Procedure Note [facility], Radiant Results Inft User - 2019 11:56 PM CDT EXAM: CT ABDOMEN AND PELVIS WITH CONTRAST HISTORY: Abdominal distention COMPARISON: 11/30/2019. TECHNIQUE AND FINDINGS: Contiguous axial imaging from the level of the lung bases through the pubic symphysis was pe rformed after the uncomplicated administration of 120 cc of intravenous Omnipaque contrast. Coronal and sagittal reconstructions were obtained. Auto mA and/or iterative reconstruction were used to reduce radia tion dose. FINDINGS: Subsegmental atelectasis is noted in the lingula, right middle lobe, and lower lobes. Calcified granulomas are pr esent within both lower lobes. The liver is enlarged measuring 20.3 cm in the craniocaudal dimension. Cirrhotic liver morphology. Nodular cont our. There is an irregular, wedge-shaped 5.5 x 1.8 cm hypoattenuatin g lesion in segment with areas of subcapsular retraction. Punctate calc ifications in segment V and . No additional focal lesions are seen. Statu s post cholecystectomy. Mild dilatation of the common bile duct to 10 mm, likely secondary to reservoir phenomenon. The spleen is enlarged measuring 15.1 cm in the craniocaudal dimension. The adrenals and pancreas are unremarkable. 2.9 cm right interpolar region renal cyst. Additional cortical hypodens ities are too small to accurately characterize. Small sliding-type hiatal hernia. There is a short segment of thickened transverse colon at the level of the hep atic flexure with engorgement of the vasa recta and mild surrounding infl ammatory changes. A similar thickened loop of bowel with surrounding inflammatory changes is noted at the splenic flexure (2:63). Small volume perihepatic ascites. A smal l amount of fluid tracks along the left paracolic gutter. Prominent portaca patrick lymph nodes measure up to 1.3 cm. A lymph node at the gurwinder hepatis me asures 1.2 cm in the short axis. Moderate calcified and noncalcified plaq ue affect the aortoiliac vasculature. Small esophageal varices gonzalez spected. Body wall anasarca. Mild spondylosis at L5-S1. Scarring along the anterior abdominal wall is likely postsurgical. T here is soft tissue density along the medial margin of the bilateral breas ts, more prominent on the right, likely represent postsurgical change. Th ere are adjacent surgical sly bilaterally as well as in the axilla. Sk in thickening is noted over the left breast. IMPRESSION 1. Short segments of colonic wall thick ening with engorgement of the vasa recta and surrounding inflammatory stran ding at the hepatic flexure and splenic flexure. These findings are favo red to represent colitis which may be infectious or inflammatory rather sheryl n hepatic colopathy. 2. Changes of cirrhosis with sequelae o f portal hypertension including small volume ascites, small gastroesopha geal varices, and splenomegaly. 3. Irregular hypoattenuating lesion at the inferior aspect of segment , essentially unchanged from the October 0. This finding likely represents posttreatment change from the residual t reated segment HCC. Attention on follow-up. 4. Skin thickening noted over the left breast, correlation with mammography is recommended. Preliminary Report Dictated by Resident: Ren Yung I, Liz Bella MD., have reviewed this study and agree with the above report. Performing Organization Address City/[facility]/Zipcode Phone Number PACS/VR/DOSE PROTHROMBIN TIME / INR (12/15/2019 7:33 PM CDT) PROTIME PATIENT 13.7 12.0 - 14.7 [facility] LABORATORY INR 1.1Comment: Normal [facility] INR <1.1; Warfarin [facility] Therapeutic range LABORATORY 2.0 to 3.0 or 2.5 to 3.5, depending upon the indications. Specimen Blood - VENOUS Performing Organization Address [facility] Services[facility] Phone Number [facility] CLIA: [id number], [address] [place], [place] [address] COVID-19 (ID NOW RAPID TESTING) (12/15/2019 7:33 PM CDT) SARS-CoV-2 Rapid ID Not Detected Not Detected [facility] LABORATORY Specimen Swab - NASOPHARYNGEAL SWAB Narrative Performed At ID NOW COVID-19 Assay is an isothermal nucleic [facility] LABORATORY acid amplification test intended for the qualitative detection of nucleic acid from SARS-CoV-2 viral RNA in nasopharyngeal (LOAN COORDINATOR) specimens. It is used under Emergency Use Authorization (EUA) by FDA. The limit of detection (LOD) of the assay is 125 Genome Equivalents/mL. A positive result is indicative of the presence of SARS-CoV-2 RNA. Clinical correlation with patient history and other diagnostic information is necessary to determine patient infection status. A negative (Not Detected) result does not preclude SARS-CoV-2 infection. In patients with clinical symptoms and other tests that are consistent with SARS-CoV-2 infection, negative results should be treated as presumptive negative and a new specimen should be tested with alternative PCR molecular test. Invalid: Please collect a new specimen for repeat patient testing if clinically indicated. Performing Organization Address [facility]/Zipcode Phone Number [facility] CLIA: [id number], [address] [place], [place] [address] Urinalysis (12/15/2019 7:33 PM CDT) Pathologist Sig nature APPEARANCE Hazy (A) Clear [facility] LABORATORY COLOR Yellow Yellow [facility] LABORATORY PH 5.0 4.8 - 8.0 [facility] LABORATORY SP GRAVITY 1.026 1.003 - 1.030 [facility] LABORATORY GLU U QUAL 500 mg/dL (A) Normal [facility] LABORATORY BLOOD Negative Negative [facility] LABORATORY KETONES Negative Negative [facility] LABORATORY PROTEIN 30 mg/dL (A) Negative [facility] LABORATORY UROBILIN 2.0 mg/dL (A) Normal [facility] LABORATORY BILIRUBIN Negative Negative [facility] LABORATORY NITRITE Negative Negative [facility] LABORATORY LEUK GUADALUPE Negative Negative [facility] LABORATORY RBC/HPF 2 0 - 3 HPF [facility] LABORATORY WBC/HPF 1 0 - 5 HPF [facility] LABORATORY BACTERIA Negative Negative [facility] LABORATORY MUCOUS Slight (A) Negative LPF [facility] LABORATORY SQ EPITH 8 HPF [facility] LABORATORY HYAL CAST 1 <=2 LPF [facility] LABORATORY Specimen Urine - URINE, CLEAN CATCH Performing Organization Address City/State/Zipcode Phone Number [facility] CLIA: [id number], [address] [place], [place] [address] POCT Test, Urine (12/15/2019 7:26 PM CDT) Pathologist Sig nature POCT PREG negative On board controls acceptable present with C Line POCT PREG LOT # [id number] POCT PREG TEST DATE 02-10-2021 Specimen Urine - URINE, CLEAN CATCH CBC WITH DIFFERENTIAL (12/15/2019 7:19 PM CDT) WBC 4.04 (L) 4.30 - 11.10 [facility] 10*3/L [facility] LABORATORY RBC 3.05 (L) 3.93 - 5.25 [facility] 10*6/L HOSPITAL LABORATORY HGB 9.3 (L) 11.6 - 15.0 [facility] g/dL HOSPITAL LABORATORY HCT 29.0 (L) 35.7 - 45.2 [facility] % HOSPITAL LABORATORY MCV 95.1 80.6 - 95.5 [facility] LAB[facility]ORY MCH 30.5 25.9 - 32.8 [facility] pg [facility] LABORATORY MCHC 32.1 31.6 - 35.1 [facility] g/dL [facility] LABORATORY RDW-SD 64.8 (H) 39.0 - 49.9 [facility] LABORATORY RDW-CV 19.3 (H) 12.0 - 15.5 [facility] % [facility] LABORATORY PLT 57 (L) 166 - 358 [facility] 10*3/L [facility] LABORATORY MPV 10.0 9.5 - 12.9 [facility] LABORATORY IPF % 2.2Comment: 1.3 - 7.7 % [facility] Platelet count HOSPITAL measured by LABORATORY fluorescence method. NRBC/100 WBC 0.0 0.0 - 10.0 [facility] /100 WBCs [facility] LABORATORY NRBC x10^3 <0.01 10*3/L [facility] LABORATORY GRAN MAT (NEUT) % 60.1 % [facility] LABORATORY IMM GRAN % 0.50 % [facility] LABORATORY LYMPH % 29.5 % [facility] LABORATORY MONO % 9.2 % [facility] LABORATORY EOS % 0.5 % [facility] LABORATORY BASO % 0.2 % [facility] LABORATORY GRAN MAT x10^3(ANC) 2.43 1.88 - 7.09 [facility] 10*3/uL [facility] LABORATORY IMM GRAN x10^3 <0.03 0.00 - 0.06 [facility] 10*3/uL [facility] LABORATORY LYMPH x10^3 1.19 (L) 1.32 - 3.29 [facility] 10*3/uL [facility] LABORATORY MONO x10^3 0.37 0.33 - 0.92 [facility] 10*3/uL [facility] LABORATORY EOS x10^3 <0.03 (L) 0.03 - 0.39 [facility] 10*3/uL [facility] LABORATORY BASO x10^3 <0.03 0.01 - 0.07 [facility] 10*3/uL [facility] LABORATORY POLYCHROMASIA 2+ 2+ [facility] LABORATORY ROUPRINCE Present (A) (none) [facility] LABORATORY Specimen Blood - VENOUS Performing Organization Address City/State/Zipcode Phone Number [facility] CLIA: [id number], [address] [place], [place] [address] N-TERMINAL PRO-BNP (12/15/2019 7:19 PM CDT) Pathologist Sig [facility] NT-proBNP 407 (H) <=125 pg/mL [facility] LABORATORY Specimen Blood - VENOUS Narrative Performed At Biotin has been reported to cause a negative [facility] LABORATORY bias, interpret results relative to patient's use of biotin. Performing Organization Address City/[facility] Phone Number [facility] CLIA: [id number], [address] [place] [address] Troponin I (12/15/2019 7:19 PM CDT) [facility] TROPONIN I <0.012 <=0.034 ng/mL [facility] LABORATORY Specimen Blood - VENOUS Narrative Performed At Equal or Less than 0.034 ng/ml---Normal [facility] LABORATORY Note: Cardiac troponin begins to rise 3-4 hours after the onset of ischemia. Repeat in 4-6 hours if the sample was drawn within 3-4 hours of the onset of the symptom and found normal. Between 0.035 and 0.120 ng/mL--- Borderline. Questionable myocardial injury or necros is Note: Serial measurement may be necessary to confirm or exclude the diagnosis of myocardial injury or necrosis; Clinical correlation (symptoms, EKGs, imaging studies, and others) required; Repeat in 4-6 hours if clinically indicated. Equal or Higher than 0.121 ng/mL---Abnormal. Myocardial Injury or Necrosis Likely Biotin has been reported to cause a negative bias, interpret results relative to patient's use of biotin. Performing Organization Address City/[facility] Services[facility] Phone Number [facility] CLIA: [id number], [address] [place], [place] [address] Lipase Serum (12/15/2019 7:19 PM CDT) [facility] LIPASE 76 0 - 220 U/L [facility] LABORATORY Specimen Blood - VENOUS Performing Organization Address City/[facility] Servicescode Phone Number [facility] [facility] CLIA: [id number], [address] [place], [place] [address] Hepatic Function Panel (ALB, T.PRO, BILI T, BU/BC, ALT, AST, ALK PHOS) (12/15/2019 7:19 PM CDT) Pathologist Sig [facility] TOTAL BILI 1.6 (H) 0.1 - 1.1 mg/dL [facility] LABORATORY BILI UNCON 1.2 (H) 0.1 - 1.1 mg/dL [facility] LAB[facility] BILI CONJ 0.0 0.0 - 0.3 mg/dL [facility] LAB[facility] T PROTEIN 6.5 6.3 - 8.2 g/dL [facility] ALBUMIN 2.9 (L) 3.5 - 5.0 g/dL [facility] ALK PHOS 175 (H) 34 - 122 U/L [facility] ALTv 26 5 - 35 U/L [facility] AST(SGOT) 49 (H) 13 - 40 U/L [facility] LABOR[facility] Specimen Blood - VENOUS Performing Organization Address City/State/Zipcode Phone Number [facility] CLIA: [id number], [address] [place] [address] [address] [facility] Basic Metabolic Panel (NA, K, CL, CO2, GLUCOSE, BUN, CREATININE, CA) (12/15/2019 7:19 PM CDT) [facility] NA 133 (L) 135 - 145 [facility] mmol/L [facility] LABOR[facility] K 4.4 3.5 - 5.0 [facility] mmol/L [facility] LAB[facility] CL 105 98 - 108 mmol/L [facility] LABOR[facility] CO2 TOTAL 28 23 - 31 mmol/L [facility] LAB[facility] AGAP <1 (L) 2 - 16 [facility] BUN 16 7 - 23 mg/dL [facility] GLUCOSE 291 (H) 70 - 110 mg/dL [facility]OR[facility] CREATININE 0.66 0.50 - 1.04 [facility] mg/dL [facility] LAB[facility] CALCIUM 8.4 (L) 8.6 - 10.6 [facility] mg/dL [facility] LAB[facility] eGFR Calculation 92.0 mL/min/1.73m2 [facility] ([facility] LABORATORY Grenadian) eGFR Calculation 111.5 mL/min/1.73m2 [facility] ([facility] LABORATORY Specimen Blood - VENOUS Narrative Performed At Association of Glomerular Filtration Rate (GFR) [facility] LAB[facility]ATORY and Staging of Kidney Disease* [...] tests). Performing Organization Address City/State/Zipcode Phone Number [facility] CLIA: [id number], [address] [place] [address] documented in this encounter Visit Diagnoses Diagnosis SOB (shortness of breath) - Primary Shortness of breath Anasarca Edema Leg swelling Swelling of limb documented in this encounter Administered Medications Medication Order MAR Action Action Date Dose Rate Site FENTanyl PF (SUBLIMAZE (PF)) Given 12/15/2019 10:38 PM CDT 50 mc g injection 50 mcg 50 mcg, Slow IV Push, ONCE, 1 dose, 12/15/19 at 2345, STAT iohexol (OMNIPAQUE 350 BULK-150 mL) Given 12/15/2019 10:45 PM CD T 120 mL injection 120 mL 120 mL, Intravenous, ONCE, 1 dose, Fri12/15/19 at 2100, Routine documented in this encounter Insurance Payer Benefit Plan / Subscriber ID Effective Dates Phone Addre ss Type Group MEDICARE MEDICARE PART xxxxxxxxxxx 2006-Micheal [phone] [facility] Medicare A & B t 2 [id number] [place] [id number] [facility] MEDICAID OF xxxxxxxxx 2018-Prese [phone] [address] Medicaid [place] [id number] [place] [address] (Work) [id number] documented as of this encounter
--- OUTSIDE RECORDS SUMMARY | 2020-01-25 14:22 | XMS REPORT | Summary of Care ---
:1960 Author Organization [facility] Address [address] [place] [address] Care Team Providers Name Role Phone Chito Barros Primary Care Provider Reason for Referral MRI/CAT Scan (Routine) Status Reason Specialty Diagnoses / Referred By Referred To Procedures Contact Contact New Request Diagnostic Diagnoses Lower abdominal pain Vipul Whitehead, Radiology Procedures CT ABDOMEN PELVIS W CONTRAST DO [address] [place] [address] [place] [address] Reason for Visit Reason Comments Abdominal Pain Nausea BLOOD IN STOOL Auth/Cert Status Reason Specialty Diagnoses / Referred By Referred To Procedures Contact Contact Emergency Medicine [facility] Em ergency Dept [address] [place] [address] [place] [address] Fax: Encounter Details Date Type Department Care Team Description 11/30/2019 Emergency ADC-Emergency Vipul Whitehead DO Lower abdominal pain (Primary Dx); Department [address] [place] [address] Hyperglycemia; [address] [place] [address] [address] [place] [address] [place], [place] [id number] Allergies Active Allergy Reactions Severity Noted Date Comments Propoxyphene N-Acetaminophen Other - See comments 02/2018 migraine Ondansetron Itching 11/09/2019 Ketorolac Rash Medium 11/30/2019 Tramadol Other - See comments 02/18/2018 Anxious Azithromycin Rash 02/18/2018 documented as of this encounter (statuses as of 11/30/2019) Medications Medication Sig Dispensed Refills Start Date [...] as of this encounter (statuses as of 11/30/2019) Active Problems Problem Noted Date Obesity (BMI 30-39.9) 11/12/2019 Hematemesis 11/10/2019 Melena 11/10/2019 Partial small bowel obstruction 11/09/2019 Hyperglycemia 07/31/2019 Cocaine dependence, continuous 10/03/2005 documented as of this encounter (statuses as of 11/30/2019) Social History Tobacco Use Types Packs/Day Years [...] been in contact with No / Unsure 11/30/2019 12:12 PM CDT someone who was confirmed or suspected to have Coronavirus / COVID-19? documented as of this encounter Last Filed Vital Signs Vital Sign Reading Time Taken Comments Blood Pressure 164/94 11/30/2019 2:28 PM CDT Pulse 92 11/30/2019 2:28 PM CDT Temperature 37.1 C (98.8 F) 11/30/2019 12:18 PM CDT Respiratory Rate 20 11/30/2019 2:28 PM CDT Oxygen Saturation 94% 11/30/2019 2:28 PM CDT Inhaled Oxygen Concentration - - Weight 73.9 kg (163 lb) 11/30/2019 12:18 PM CDT Height 160 cm (5' 3") 11/30/2019 12:18 PM CDT Body Mass Index 28.87 11/30/2019 12:18 PM CDT documented in this encounter Discharge Instructions AttachmentsThe following attachments cannot be sent through Care Everywhere. Colitis, Understanding (Faroese)Hyperglycemia (High Blood Sugar) (Faroese) documented in this encounter Plan of Treatment Health [...] Procedure Name Priority Date/Time Associated Comments Diagnosis CT ABDOMEN PELVIS W Routine 11/30/2019 2:02 Lower abdominal R esults for this CONTRAST PM CDT pain procedure are i n the results section. CBC WITH DIFFERENTIAL STAT 11/30/2019 12:40 Lower abdominal Results for this PM CDT pain procedure are i n the results section. URINALYSIS STAT 11/30/2019 12:40 Lower abdominal Results for this PM CDT pain procedure are i n the results section. CBC WITH DIFFERENTIAL Routine 11/30/2019 12:40 Lower abdominal Results for this PM CDT pain procedure are i n the results section. COMP. METABOLIC PANEL STAT 11/30/2019 12:40 Lower abdominal Results for this (54803) PM CDT pain procedure are i n the results section. LIPASE STAT 11/30/2019 12:40 Lower abdominal Results for this PM CDT pain procedure are i n the results section. NOTICE OF PRIVACY Routine 11/30/2019 12:11 PRACTICES PM CDT ASSIGNMENT OF Routine 11/30/2019 12:11 BENEFITS PM CDT documented in this encounter Results CT ABDOMEN PELVIS W CONTRAST (11/30/2019 2:02 PM CDT) Specimen Narrative Performed At CT Abdomen and Pelvis with intravenous c ontrast. PACS/VR/DOSE CLINICAL HISTORY: Acute generalized abdo caron pain. DOSE: Up-to-date CT equipment and radiation dose reduc tion techniques were employed. CTDIvol: 7.09 mGy. DLP: 368 mGy-cm. TECHNIQUE : Contiguous axial imaging fro m the level of the lung bases through the pubic symphysis were perform ed after the uncomplicated administration of Omnipaque contrast mat erial. Coronal and sagittal reconstructions were obtained. Auto mA and/or iterativ e reconstruction were used to reduce radiation dose. FINDINGS: Comparison is made with previous CT scans of 11/09/2019 as well as 11/11/2019. Lower lungs: Minimal fibrosis in the rig ht lower lung, lingula and right middle lobe. Calcified granuloma in the lingula segmen t and anterior basal right lower lung. No pleural effusion or pericardial effusion. Possible short sliding hiatal hernia and small es ophageal varices. Liver, Gallbladder and Spleen: S/P cholecystectomy. Li angélica is enlarged, 19.4 cm and showed an indeterminate low-densi ty lesion of 5.4 x 1.8 x 3 (transverse x AP x length) cm size in th e right lobe. Undulating serosal surface of the liver is consistent with chronic primar y liver disease with portal hypertension causing splenomegaly. Spleen is at 18 x 6 cm. Dilated portal venous system noted. Portal vein is patent. Peritoneum: No free air or free fluid. No lymphadenopathy. Pancreas and Adrenals: Unremarkable pancreas and rig ht adrenal gland. Mild nonspecific left adrenal gland hypertrop hy noted. Kidneys and Ureters: No visible calculi in the renal collecting systems. No hydroureter or hydronephrosis. No enh ancing kidney lesions are seen. Bosniak type I cystic lesion of 2.6 cm size in the lat eral interpolar right kidney noted. Vessels: Atherosclerosis. No AAA. Retroperitoneum: No abnormal fluid or ly mphadenopathy. Bowel: Pericolonic congestion surrounding cecum and de scending colon seen in the previous study is improved. This time there is minimal congestion present around the ascending colon. 3.5 cm size large diverticulum noted carmencita ng the medial border of the duodenal C-loop just distal to the ampul la. Bladder and Reproductive Organs: Hystere ctomy. No gross pathology in the unopacified urinary bladder. Bones: Moderate degenerative disc diseas e at L5-S1 and old fracture of upper plate of L2 with loss of 40% of it s height in the central portion. Soft tissues: Abdominal scar tissue note d in the suprapubic region from previous surgery. An irregular shaped fat containing 2 .5 cm size umbilical hernia. CONCLUSION: 1. No acute intra-abdominal or pelvic ab normalities detected. 2. Interval improvement noted in the con gestion of pericolonic fat surrounding a sending colon compared to the previous study. Mucosal enhancement is still present in the right cerebral lar ge bowel. This could be due to nonspecific colitis. Mild cons tipation noted. No significant diverticular disease 3. Hepatosplenomegaly with hepatic archi tecture suggestive of chronic primary liver disease, possibly cirrhosi s with portal hypertension and esophageal varices. 4. Wedge shaped lesion in the lower right lobe of the liver is difficult to accurately characterize. It is unchanged when compared with the recent CT scans of 11/09/2019 and 11/11/2019. 5. S/P cholecystectomy and hysterectomy. Procedure Note [facility], Radiant Results Inft User - 2019 2:[address] Abdomen and Pelvis with intravenous contrast. CLINICAL HISTORY: Acute generalized abdo caron pain. DOSE: Up-to-date CT equipment and radiat ion dose reduction techniques were employed. CTDIvol: 7.09 mGy. DLP: 368 mGy-cm. TECHNIQUE : Contiguous axial imaging fro m the level of the lung bases through the pubic symphysis were perform ed after the uncomplicated administration of Omnipaque contrast mat erial. Coronal and sagittal reconstructions were obtained. Auto mA a nd/or iterative reconstruction were used to reduce radiation dose. FINDINGS: Comparison is made with previo us CT scans of 11/09/2019 as well as 11/11/2019. Lower lungs: Minimal fibrosis in the rig ht lower lung, lingula and right middle lobe. Calcified granuloma in the lingula segment and anterior basal right lower lung. No pleural effusion or pericardial effusion. Possible short sliding hiatal hernia and small es ophageal varices. Liver, Gallbladder and Spleen: S/P sherry cystectomy. Liver is enlarged, 19.4 cm and showed an indeterminate low-densi ty lesion of 5.4 x 1.8 x 3 (transverse x AP x length) cm size in th e right lobe. Undulating serosal surface of the liver is consistent with chronic primary liver disease with portal hypertension causing splenomegaly . Spleen is at 18 x 6 cm. Dilated portal venous system noted. Portal vein is patent. Peritoneum: No free air or free fluid. No lymphadenopathy. Pancreas and Adrenals: Unremarkable banerjee creas and right adrenal gland. Mild nonspecific left adrenal gland hypertrop hy noted. Kidneys and Ureters: No visible calculi in the renal collecting systems. No hydroureter or hydronephrosis. No enh ancing kidney lesions are seen. Bosniak type I cystic lesion of 2.6 cm s ize in the lateral interpolar right kidney noted. Vessels: Atherosclerosis. No AAA. Retroperitoneum: No abnormal fluid or ly mphadenopathy. Bowel: Pericolonic congestion surroundin g cecum and descending colon seen in the previous study is improved. This time there is minimal congestion present around the ascending colon. 3.5 cm size large diverticulum noted carmencita ng the medial border of the duodenal C-loop just distal to the ampul la. Bladder and Reproductive Organs: Hystere ctomy. No gross pathology in the unopacified urinary bladder. Bones: Moderate degenerative disc diseas e at L5-S1 and old fracture of upper plate of L2 with loss of 40% of it s height in the central portion. Soft tissues: Abdominal scar tissue note d in the suprapubic region from previous surgery. An irregular shaped fa t containing 2.5 cm size umbilical hernia. CONCLUSION: 1. No acute intra-abdominal or pelvic ab normalities detected. 2. Interval improvement noted in the con gestion of pericolonic fat surrounding a sending colon compared to the previous study. Mucosal enhancement is still present in the righ t cerebral large bowel. This could be due to nonspecific colitis. Mild cons tipation noted. No significant diverticular disease 3. Hepatosplenomegaly with hepatic archi tecture suggestive of chronic primary liver disease, possibly cirrhosi s with portal hypertension and esophageal varices. 4. Wedge shaped lesion in the lower righ t lobe of the liver is difficult to accurately characterize. It is unchanged when compared with the recent CT scans of 11/09/2019 and 11/11/2019. 5. S/P cholecystectomy and hysterectomy. Performing Organization Address City/State/Zipcode Phone Number PACS/VR/DOSE CBC WITH DIFFERENTIAL (11/30/2019 12:40 PM CDT) WBC 6.15 4.30 - 11.10 [facility] 10*3/L [facility] RBC 3.77 (L) 3.93 - 5.25 [facility] 10*6/L [facility] HGB 11.6 11.6 - 15.0 [facility] g/dL [facility] HCT 34.5 (L) 35.7 - 45.2 % [facility] LABORATORY MCV 91.5 80.6 - 95.5 [facility] LABORATORY MCH 30.8 25.9 - 32.8 [facility] LABORATORY MCHC 33.6 31.6 - 35.1 [facility] g/dL [facility] RDW-SD 58.3 (H) 39.0 - 49.9 [facility] LABORATORY RDW-CV 17.5 (H) 12.0 - 15.5 % [facility] LABOR[facility] PLT 84 (L) 166 - 358 [facility] 10*3/L [facility] MPV 10.0 9.5 - 12.9 fL [facility] LABOR[facility] IPF % 3.1Comment: Platelet 1.3 - 7.7 % [facility] count measured by HOSPITAL fluorescence method. LABORATORY NRBC/100 WBC 0.0 0.0 - 10.0 [facility] /100 WBCs [facility]AT[facility] NRBC x10^3 <0.01 10*3/L [facility] GRAN MAT (NEUT) % 72.1 % [facility] IMM GRAN % 0.50 % [facility] LYMPH % 16.7 % [facility] MONO % 9.4 % [facility] EOS % 0.8 % [facility] BASO % 0.5 % [facility] GRAN MAT 4.43 1.88 - 7.09 [facility] x10^3(ANC) 10*3/uL HOSPITAL LABORATORY IMM GRAN x10^3 0.03 0.00 - 0.06 [facility] 10*3/uL [facility] LABORATORY LYMPH x10^3 1.03 (L) 1.32 - 3.29 [facility] 10*3/uL [facility] LABORATORY MONO x10^3 0.58 0.33 - 0.92 [facility] 10*3/uL [facility]ITAL LABORATORY EOS x10^3 0.05 0.03 - 0.39 [facility] 10*3/uL [facility] LABORATORY BASO x10^3 0.03 0.01 - 0.07 [facility] 10*3/uL [facility] LABORATORY Specimen Blood - VENOUS Performing Organization Address [facility] Phone Number [facility] CLIA: [id number], [address] [place] [address] Urinalysis (11/30/2019 12:40 PM CDT) Pathologist Sig nature APPEARANCE Clear Clear [facility] COLOR Yellow Yellow [facility] PH 5.0 4.8 - 8.0 [facility] SP GRAVITY 1.028 1.003 - 1.030 [facility] GLU U QUAL 500 mg/dL (A) Normal [facility] BLOOD Negative Negative [facility] KETONES Negative Negative [facility] PROTEIN Negative Negative [facility] UROBILIN Normal Normal [facility] BILIRUBIN Negative Negative [facility] NITRITE Negative Negative [facility] LEUK GUADALUPE Negative Negative [facility] RBC/HPF 1 0 - 3 HPF [facility] WBC/HPF <1 0 - 5 HPF [facility] BACTERIA Negative Negative [facility] SQ EPITH 2 HPF [facility] LABOR[facility] Specimen Urine - URINE, CLEAN CATCH Performing Organization Address [facility] Phone Number [facility] CLIA: [id number], [address] [place] [address] Lipase, Serum (11/30/2019 12:40 PM CDT) Pathologist Sig nature LIPASE 69 0 - 220 U/L [facility] LABORATORY Specimen Blood - VENOUS Performing Organization Address City/State/Zipcode Phone Number [facility] CLIA: [id number], [address] [place] [address] Complete Metabolic Panel (11/30/2019 12:40 PM CDT) NA 132 (L) 135 - 145 [facility] mmol/L [facility] K 5.4 (H) 3.5 - 5.0 [facility] mmol/L [facility] CL 99 98 - 108 mmol/L [facility] CO2 TOTAL 25 23 - 31 mmol/L [facility] AGAP 8 2 - 16 [facility] BUN 15 7 - 23 mg/dL [facility] GLUCOSE 502 (HH) 70 - 110 mg/dL [facility] CREATININE 0.71 0.50 - 1.04 [facility] mg/dL [facility] TOTAL BILI 1.4 (H) 0.1 - 1.1 mg/dL [facility] CALCIUM 9.2 8.6 - 10.6 [facility] mg/dL [facility] T PROTEIN 7.4 6.3 - 8.2 g/dL [facility] ALBUMIN 3.5 3.5 - 5.0 g/dL [facility] ALK PHOS 185 (H) 34 - 122 U/L [facility] ALTv 31 5 - 35 U/L [facility] AST(SGOT) 42 (H) 13 - 40 U/L [facility] LAB[facility] eGFR Calculation 84.6 mL/min/1.73m2 [facility] ([facility] LABORATORY Azerbaijani) eGFR Calculation 102.5 mL/min/1.73m2 [facility] () [facility] Specimen Blood - VENOUS Narrative Performed At Association of Glomerular Filtration Rate (GFR) [facility] LAB[facility]ATORY and Staging of Kidney Disease* [...] tests). Performing Organization Address City/State/Zipcode Phone Number [facility] CLIA: [id number], [address] [place], [place] [address] documented in this encounter Visit Diagnoses Diagnosis Lower abdominal pain - Primary Abdominal pain, other specified site Hyperglycemia Other abnormal glucose Colitis Other and unspecified noninfectious eren roenteritis and colitis documented in this encounter Administered Medications Medication Order MAR Action Action Date Dose Rate Site iohexol (OMNIPAQUE 350 BULK-150 Given 11/30/2019 1:55 PM CDT 12 0 mL mL) injection 120 mL 120 mL, Intravenous, ONCE, 1 dose, 11/30/19 at 1415, Routine documented in this encounter Insurance Payer Benefit Plan / Subscriber ID Effective Dates Phone Addre ss Type Group MEDICARE MEDICARE PART xxxxxxxxxxx 2006-Presen [id number] Medicare A & B t 2 [id number] [place]EN BASS [phone] [facility] MEDICAID OF xxxxxxxxx 2018-Prese [phone] [address] Medicaid [facility] [id number] [place] [address] (Work) [id number] documented as of this encounter
--- NOTE | 2020-01-25 14:47 | EDPHYS ---
Physician Documentation [facility] Name: Jeannette Ashby Age: 59 yrs Sex: Female : 1960 Arrival Date: 01/25/2020 Time: 10:23 Bed 27 Private MD: Krystle Barros C ED Physician Reinier Burks HPI: 01/24 14:29 This 59 yrs old Female presents to ER via Wheelchair with complaints of High kb Blood Sugar, Cough, Fever. 14:30 The patient or guardian reports hyperglycemia, that was potentially precipitated by no kb particular event. Onset: The symptoms/episode began/occurred 2 week(s) ago. The patient has not experienced similar symptoms in the past. The patient has not recently seen a physician. 14:30 Associated signs and symptoms: Pertinent positives: cough, fever, lower ext kb swelling/redness/warmth and high blood sugar. Current symptoms: In the emergency department the patient's symptoms are unchanged from the initial presentation. Pt reports she went to her PCP (Papo) for cough, fever and lower ext cellulitis that has been going on for 2 weeks. Was sent here because her blood sugar was high. Historical: - Allergies: 10:56 Zithromax; dm5 10:56 tramadol; dm5 10:56 Toradol; dm5 10:56 Erythromycin; dm5 10:56 Demerol; dm5 10:56 Darvocet-N 100; dm5 - Home Meds: 10:56 Methadone Oral [Active]; Seroquel Oral [Active]; Coreg Oral [Active]; ernestro [Active];dm5 - PMHx: 10:56 Anxiety; Cancer, Breast; Chronic pain; Colitis; COPD; Depression; Diabetes - IDDM; dm5 Liver cell carcinoma; MUSCLE WEAKNESS; CHF; Hypertension; - PSHx: 10:56 Cholecystectomy; ; Mastectomy, Left; Mastectomy, Right; Appendectomy; dm5 Hysterectomy; - Immunization history:: Adult Immunizations up to date. - Social history:: Smoking status: Patient reports the use of cigarette tobacco products, smokes one-half pack cigarettes per day. ROS: 14:25 ENT: Negative for injury, pain, and discharge, Neck: Negative for injury, pain, and kb swelling, Cardiovascular: Negative for chest pain, palpitations, and edema, Abdomen/GI: Negative for abdominal pain, nausea, vomiting, diarrhea, and constipation, : Negative for injury, bleeding, discharge, and swelling, MS/Extremity: Negative for injury and deformity, Neuro: Negative for headache, weakness, numbness, tingling, and seizure. 14:25 Constitutional: Positive for fever. 14:25 Respiratory: Positive for cough, Negative for dyspnea on exertion, hemoptysis, orthopnea, pleurisy, shortness of breath, sputum production, wheezing. 14:25 Skin: Positive for cellulitis, of the right leg and left leg. Exam: 14:27 Constitutional: This is a well developed, well nourished patient who is awake, alert, kb and in no acute distress. Head/Face: Normocephalic, atraumatic. Chest/axilla: Normal chest wall appearance and motion. Nontender with no deformity. No lesions are appreciated. Cardiovascular: Regular rate and rhythm with a normal S1 and S2. No gallops, murmurs, or rubs. Normal PMI, no JVD. No pulse deficits. Respiratory: Lungs have equal breath sounds bilaterally, clear to auscultation and percussion. No rales, rhonchi or wheezes noted. No increased work of breathing, no retractions or nasal flaring. Abdomen/GI: Soft, non-tender, with normal bowel sounds. No distension or tympany. No guarding or rebound. No evidence of tenderness throughout. Back: No spinal tenderness. No costovertebral tenderness. Full range of motion. MS/ Extremity: Pulses equal, no cyanosis. Neurovascular intact. Full, normal range of motion. Neuro: Awake and alert, GCS 15, oriented to person, place, time, and situation. Cranial nerves II-XII grossly intact. Motor strength 5/5 in all extremities. Sensory grossly intact. Cerebellar exam normal. Normal gait. 14:27 Skin: cellulitis, that is mild, on the right lower leg, left lower leg. Vital Signs: 10:51 BP 104 / 64; Pulse 77; Resp 18; Temp 98.2; Pulse Ox 94% ; Weight 72.57 kg; Height 5 ft. dm5 3 in. (160.02 cm); Pain 10/10; 14:30 BP 104 / 67; Pulse 71; Pulse Ox 95% on R/A; vc 10:51 Body Mass Index 28.34 (72.57 kg, 160.02 cm) dm5 MDM: 11:01 Patient medically screened. kb 14:25 Data reviewed: vital signs, nurses notes. Data interpreted: Pulse oximetry: on room air kb is 94 %. Interpretation: normal. 14:46 Counseling: I had a detailed discussion with the patient and/or guardian regarding: the kb historical points, exam findings, and any diagnostic results supporting the discharge/admit diagnosis, lab results, radiology results, the need for outpatient follow up, a family practitioner, to return to the emergency department if symptoms worsen or persist or if there are any questions or concerns that arise at home. 14:47 ED course: Pt doesn't want to stay anymore. States she can get her sugar down at home.. kb 01/24 11:00 Order name: CBC with Diff; Complete Time: 12:41 kb 01/24 11:00 Order name: Basic Metabolic Panel; Complete Time: 11:53 kb 01/24 11:00 Order name: Blood Culture Adult (2) kb 01/24 11:00 Order name: Acetone, Serum; Complete Time: 11:53 kb 01/24 11:00 Order name: Lactate; Complete Time: 14:41 kb 01/24 11:00 Order name: Procalcitonin; Complete Time: 12:16 kb 01/24 11:00 Order name: IV Start; Complete Time: 14:34 kb 01/24 11:00 Order name: Chest Single View XRAY; Complete Time: 14:00 kb 01/24 11:00 Order name: US Extremity Venous W Compression Anup; Complete Time: 13:38 kb 01/24 11:31 Order name: Glucose, Ancillary Testing; Complete Time: 11:33 EDMS 01/24 12:37 Order name: Manual Differential; Complete Time: 12:41 EDMS 01/24 14:47 Order name: Blood Glucose Level; Complete Time: 14:55 kb Administered Medications: 13:45 Drug: Insulin Regular Human 10 units {Co-Signature: (Nelly Kaur RN).} Route: ah IVP; Site: right antecubital; 14:36 Not Given (Patient Refused): NS 0.9% 1000 ml IV at 1000 ml once Point of Care Testing: Blood Glucose: 10:57 Blood Glucose: 493 mg/dL; dm5 Ranges: Critical Glucose Levels:Adult <50 mg/dl or >400 mg/dl <40 mg/dl or >180 mg/dl Disposition: 20:34 Co-signature as Attending Physician, Reinier Burks MD I agree with the assessment and [place] plan of care. Disposition: 01/25/20 14:46 Discharged to Home. Impression: Hyperglycemia, unspecified, Cellulitis of right lower limb, Cellulitis of left lower limb. - Condition is Stable. - Discharge Instructions: Cellulitis, Adult, [id number], Hyperglycemia, [id number]. - Prescriptions for Keflex 500 mg Oral Capsule - take 1 capsule by ORAL route every 8 hours for 10 days; 30 capsule. Bactrim DS 800- 160 mg Oral Tablet - take 1 tablet by ORAL route every 12 hours for 10 days; 20 tablet. - Medication Reconciliation Form, Thank You Letter, Antibiotic Education, Prescription Opioid Use form. - Follow up: Emergency Department; When: As needed; Reason: Worsening of condition. Follow up: Private Physician; When: 2 - 3 days; Reason: Recheck today's complaints, Continuance of care, Re-evaluation by your physician. Signatures: Dispatcher [employer] EDME Apurva Shannon, MUCK MINER-C MUCK MINER-Radha Wallace, RN RN dm5 Reinier Burks MD MD cha Pisarski, Jacob jp3 Ila Hopper, PANKAJ Kaur RN, vc Corrections: (The following items were deleted from the chart) 14:55 14:46 01/25/2020 14:46 Discharged to Home. Impression: Hyperglycemia, unspecified; jp3 Cellulitis of right lower limb; Cellulitis of left lower limb. Condition is Stable. Forms are Medication Reconciliation Form, Thank You Letter, Antibiotic Education, Prescription Opioid Use. Follow up: Emergency Department; When: As needed; Reason: Worsening of condition. Follow up: Private Physician; When: 2 - 3 days; Reason: Recheck today's complaints, Continuance of care, Re-evaluation by your physician. kb
--- NOTE | 2020-01-25 14:47 | ER ---
Nurse's Notes [facility] Name: Jeannette Ashby Age: 59 yrs Sex: Female : 1960 Arrival Date: 01/25/2020 Time: 10:23 Bed 27 Private MD: Krystle Barros C Diagnosis: Hyperglycemia, unspecified;Cellulitis of right lower limb;Cellulitis of left lower limb Presentation: 01/24 10:51 Coronavirus screen: Patient reports a cough. Patient denies shortness of breath or dm5 difficulty breathing. Patient reports a measured and/or subjective temperature greater than 100.4F. Patient denies travel on a cruise ship or to a country the [facility] currently lists as an affected area. Patient denies contact with known and/or suspected case of COVID-19. Ebola Screen: Patient negative for fever greater than or equal to 101.5 degrees Fahrenheit, and additional compatible Ebola Virus Disease symptoms Patient denies exposure to infectious person. Patient denies travel to an Ebola-affected area in the 21 days before illness onset. No symptoms or risks identified at this time. Initial Sepsis Screen: Does the patient meet any 2 criteria? No. Patient's initial sepsis screen is negative. Does the patient have a suspected source of infection? No. Patient's initial sepsis screen is negative. Risk Assessment: Do you want to hurt yourself or someone else? Patient reports no desire to harm self or others. Onset of symptoms was January 12, 2020. 10:51 Method Of Arrival: Wheelchair dm5 10:51 Acuity: VERONICA 3 dm5 10:52 Chief complaint: Patient states: Pt reports cough, fever, high blood sugar, lower dm5 extremity swelling/redness/warmth for 2 weeks. Went to Papo's office and was sent here for evaluation. Historical: - Allergies: 10:56 Zithromax; dm5 10:56 tramadol; dm5 10:56 Toradol; dm5 10:56 Erythromycin; dm5 10:56 Demerol; dm5 10:56 Darvocet-N 100; dm5 - Home Meds: 10:56 Methadone Oral [Active]; Seroquel Oral [Active]; Coreg Oral [Active]; ernestro [Active];dm5 - PMHx: 10:56 Anxiety; Cancer, Breast; Chronic pain; Colitis; COPD; Depression; Diabetes - IDDM; dm5 Liver cell carcinoma; MUSCLE WEAKNESS; CHF; Hypertension; - PSHx: 10:56 Cholecystectomy; ; Mastectomy, Left; Mastectomy, Right; Appendectomy; dm5 Hysterectomy; - Immunization history:: Adult Immunizations up to date. - Social history:: Smoking status: Patient reports the use of cigarette tobacco products, smokes one-half pack cigarettes per day. Vital Signs: 10:51 BP 104 / 64; Pulse 77; Resp 18; Temp 98.2; Pulse Ox 94% ; Weight 72.57 kg; Height 5 ft. dm5 3 in. (160.02 cm); Pain 10/10; 14:30 BP 104 / 67; Pulse 71; Pulse Ox 95% on R/A; vc 10:51 Body Mass Index 28.34 (72.57 kg, 160.02 cm) dm5 ED Course: 10:23 Patient arrived in ED. am2 10:24 Krystle Barros FNP is Private Physician. am2 10:28 [facility] kb 10:28 Reinier Burks MD is Attending Physician. kb 10:52 Triage completed. dm5 10:57 Arm band placed on right wrist. dm5 13:21 Madison Champion, PANKAJ is Primary Nurse. ss 13:24 US Extremity Venous W Compression Anup In Process Unspecified. EDMS 13:48 Chest Single View XRAY In Process Unspecified. EDMS 13:50 Inserted saline lock: 22 gauge in left antecubital area, using aseptic technique. Blood jp3 collected. 13:52 Initial lab(s) drawn, by ma, sent to lab. First set of blood cultures drawn by me, jp3 X-ray(s) taken. Patient maintains SpO2 saturation greater than 95% on room air. 14:05 Second set of blood cultures drawn by me. jp3 14:10 Placed in gown. Bed in low position. Call light in reach. Verbal reassurance given. jp3 Pulse ox on. NIBP on. Administered Medications: 13:45 Drug: Insulin Regular Human 10 units {Co-Signature: vc (Nelly Kaur RN).} Route: ah IVP; Site: right antecubital; 14:36 Not Given (Patient Refused): NS 0.9% 1000 ml IV at 1000 ml once Point of Care Testing: Blood Glucose: 10:57 Blood Glucose: 493 mg/dL; dm5 Ranges: Outcome: 14:46 Discharge ordered by . 14:55 Patient left the ED. jp3 Signatures: Dispatcher [employer] EDApurva Guadarrama FNP-C FNP-Radha Wallace RN RN dm5 Madison Champion RN RN Binta Burroughs Jacob jp3 Nelly Kaur RN RN vc Harris, Amy, RN RN Nelly Kaur RN, vc
[2020-01-25 15:04] VITALS: BP 104/64; TEMP 98.2; O2SAT 94
== END 2020-01-25 14:55 | disposition home or self-care (01) ==
LOC: ER 10:18
DX: E11.65 Type 2 diabetes mellitus with hyperglycemia (principal); L03.116 Cellulitis of left lower limb; L03.115 Cellulitis of right lower limb; I10 Essential (primary) hypertension; F34.1 Dysthymic disorder; Z90.13 Acquired absence of bilateral breasts and nipples; F17.210 Nicotine dependence, cigarettes, uncomplicated; Z85.3 Personal history of malignant neoplasm of breast; Z85.05 Personal history of malignant neoplasm of liver; Z88.1 Allergy status to other antibiotic agents; Z88.3 Allergy status to other anti-infective agents; Z88.5 Allergy status to narcotic agent
CPT/HCPCS: 36415; 71045; 80048; 82010; 82947; 83605; 84145; 85025; 87040; 93970; 96374; 99284; J7030

== ENCOUNTER 2021-03-28 12:09 | Emergency (ER) | payer OTHER ==
--- OUTSIDE RECORDS SUMMARY | 2021-03-28 12:14 | XMS REPORT | Continuity of Care Document ---
:1960 Author Organization [facility] t Address [address] [place] [address] Care Team Providers Name Role Phone [phone] Primary Care Physician Unavailable Mallory JANSEN Attending Clinician Unavailable ROSAS ESPARZA Attending Clinician Unavailable Blair SIMENTAL Attending Clinician Unavailable NANCY Attending Clinician Unavailable STANISLAW Attending Clinician Unavailable Tracie LIGHT Attending Clinician Unavailable Monica ELI III Attending Clinician Unavailable Magnolia BAUMAN S Attending Clinician Chito Barros Attending Clinician Momo BAUMAN, H Attending Clinician Lab, Fam Pob I Attending Clinician Unavailable Kamryn MAYES, G Attending Clinician Doctor Unassigned, Name Attending Clinician Unavailable MARIA ELENA GARCIA Attending Clinician Unavailable Jim Valverde Attending Clinician KOREY Attending Clinician Unavailable Singer HIDALGO Attending Clinician Ronald LIRA Attending Clinician LIZA BARTH Attending Clinician Unavailable JOSÉ Attending Clinician Unavailable Deshawn CAMPOS Attending Clinician Unavailable YARI Admitting Clinician Unavailable CORNELIUS Admitting Clinician Unavailable ROSAS ESPARZA Admitting Clinician Unavailable JOSÉ Admitting Clinician Unavailable Payers Payer Name Policy Type Policy Number Effective Date Expiration Date S kristan [facility] MEDICARE [id number] 2020 MEDICAID DUAL HMO 00:00:00 [place]ICAID [place] [id number] 2016 TRADITIONAL STAR 00:00:00 PLUS SSI MEDICARE PART A [id number] 2006 AND B 00:00:00 [employer] [id number] 2017 NAMITA Shirley s 00:00:[facility] [employer] Star [id number] [address] [facility] Problems Condition Condition Condition Status Onset Resolution Last Treating Co mments Source Name Details Category Date Date Treatment Clinician Date Cirrhosis Cirrhosis Disease Active Last [facility] 00:[facility]: t & Plan: Medical 00 [facility] g of this note might be different from the original. Diagnosis based on the laborator y parameter s and imaging. 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 Cirrhosis guideline s reviewed. Hepatocell Hepatocell Disease Active Last [facility] carcinoma 00:00: t & Plan: M edical 00 [facility] g of this note might be different from the original. Diagnosis of HCC in December 2017 s/p radiofreq [...] her position. Immunity Immunity Disease Active Last [facility] testing 00:00: t & Plan: Medic al 00 [facility] g of this note might be different from the original. All patients with chronic liver disease should be immunized to prevent hepatitis A and hepatitis B. Previous serology indicates immunity to HAV. Recommend HBV booster which can be provided by primary care. Hepatitis Hepatitis Disease Active Last [facility] 2-21 [facility] - 00:00: t & Plan: Medical 00 [facility] g of this note might be different from the original. HCV diagnosed in 1998 s/p partial treatment with Interfero n / Ribavirin . HCV RNA December 2017 was undetecta ble. No further intervent ion necessary . Chronic Chronic Disease Active [facility] viral viral 09-03 Assessmen [facility] - hepatitis hepatitis 00:00: t & Plan: M edical B without B without 00 Formattin C enter delta delta g of this agent and agent and note without without might be coma coma different from the original. She has evidence of past HBV infection without immunity. HBV DNA from November 2017 undetecta ble. She may benefit from vaccinati on which can be obtained by her primary care. Hernia of Hernia of Disease Active [facility] St anterior anterior 09-03 [facility] - abdominal abdominal 00:00: t & Plan: M edical wall wall [facility] of this note might be different from the original. She has an umbilical hernia that is being evaluated for repair. She has a 34% one year mortality based on the Sebastian surgical risk score. In addition, she is Child-Pug h Class A giving her a 10% abdominal surgery colton-oper ative mortality risk. Heart Heart Disease Active [facility] murmur murmur 09-03 [facility] 00:[facility]: t & Plan: Medical 00 [facility] g of this note might be different from the original. Physical examinati on revealed an audible fixed S2 split on cardiac examinati on which may be secondary to a bundle branch block. We recommend cardiolog y consultat ion prior to procedure . Lower Lower Disease Active [facility] extremity extremity 09-03 [facility] - edema edema 00:00: t & Plan: Medical 00 [facility] g of this note might be different from the original. Assymetri javier lower extremity edema on physical examinati on. We ordered a venous doppler of the lower extremity to assess for venous thrombosi s. Previousl y on Furosemid e 20 mg daily. We write for a refill. Chest pain Chest pain Problem Active [facility] Patient [facility] Center No known No known Disease Metho di active active st problems problems Hospit a l Allergies, Adverse Reactions, Alerts Allergy Allergy Status Severity Reaction(s) Onset Inactive Treating Comm ents Source Name Type Date Date Clinician Erythrom Propensi Active St ycin ty to 09-03 [facility] - adverse 00:00: Medical reaction 00 Center s Ketorola Propensi Active [facility] to 09-03 [facility] - adverse 00:00: Medical reaction 00 Center s Propoxyp Allergy Active Migraines [facility] to 01-06 [facility] - Substanc 00:00: Patient e 00 s [facility] Azithrom Allergy Active Rash [facility] to 01-06 [facility] - Substanc 00:00: Patient e 00 s [facility] Tramadol Allergy Active Insomnia for C HI [facility]. to days 01-06 [facility] - Substanc 00:00: Patient e 00 s Medical [place] PROPOXYP DRUG Active MD TIWARI 5-18 Anderso N-ACETAM 00:00: n INOPHEN PROPOXYP DRUG Active MD TIWARI 5-18 Anderso N-ACETAM 00:00: n INOPHEN 00 Azithrom Propensi Active Rash, Other [facility] ycin ty to (See 08-08 [facility] - adverse Comments) 00:00: Medica l reaction Center s Tramadol Propensi Active Other (See Other [facility] ty to Comments) 08-08 reaction( Luke s - adverse 00:00: s): Medical reaction 00 Insomnia Center s for daysUnabl e to sleep Toradol Adverse Active Info Not [facility] Reaction Available [facility] Zithroma Adverse Active Info Not [facility] x Reaction Available [facility] Tramadol Adverse Active Info Not [facility] HCl Reaction Available [facility] Erythrom Adverse Active Info Not [facility] t ycin Reaction Available [facility] Demerol Adverse Active Info Not [facility] Reaction Available [facility] Darvocet Adverse Active Info Not [facility] t -N 100 Reaction Available [facility] Azithrom Adverse Active Info Not [facility] t ycin Reaction Available [facility] Social History Social Habit Start Date Stop Date Quantity Comments Source History SDOH Shinto Alcohol Std Drinks Hospit al History SDOH Shinto Alcohol Binge Hospital History SDOH [facility] - Alcohol Comment Medical C enter History of tobacco Cigarette Sm[facility] use [facility] Tobacco use and 2019-06-08 2019-06-08 Never used Shinto exposure 00:00:00 00:00:00 Hospital Alcohol intake 2019-06-08 2019-06-08 Lifetime Shinto 00:00:00 00:00:00 non-drinker Hospital (finding) History SDOH 2019-06-08 2019-06-08 1 Shinto Alcohol Frequency 00:00:00 00:00:00 Hospita l Cigarettes smoked 2018-09-03 2018-09-[address] [facility] - current (pack per 00:00:00 00:00:00 Medical Center day) - Reported Cigarette 2018-09-03 2018-09-[address] [facility] - pack-years 00:00:00 00:00:00 [facility] Sex Assigned At [birth year] Shinto 00:00:00 00:00:00 [facility] Smoking Status Start Date Stop Date Source Current every day smoker 2019-06-08 00:00:00 Met [facility] Medications Ordered Filled Start Stop Current Ordering Indication Dosage Frequency Signature Comments Components Source Medication Medication Date Date Medication? Clinician (SIG) Name Name Lactulose Lactulose Yes Corey [address] 1-20 [facility] - 00:[facility]: [facility] 00 [facility] Valsartan Valsartan Yes Corey [address] 1-20 [facility] - 00:00: Memoria 00 [facility] insulin NPH Yes 35U Inject [address] 100 unit/mL 2-21 Units [facility] - (3 mL) InPn 13:37: subcutaneo Medical 55 usly 2 Center (two) times daily before meals NOVOLIN . sertraline Yes 100mg QD Take [address] (ZOLOFT) 2-21 mg by [facility] - 100 MG 13:33: mouth Medical tablet 34 daily. Center methadone Yes 100mg QD Take [address] HCl 2-21 mg by [facility]ukes - (METHADONE 13:33: mouth Medica l ORAL) 34 daily. Center insulin Yes 30U Inject 30 [facility] t lispro 2-21 Units [facility] - (HUMALOG) 13:33: subcutaneo Me dical 100 unit/mL 34 usly 3 Center injection (three) times daily before meals. metFORMIN Yes 500mg Take [address] [facility] (GLUCOPHAGE 2-21 mg by [facility]ukes - ) 500 MG 13:33: mouth 2 Medica l tablet 33 (two) Center times daily with breakfast and dinner. Quetiapine Quetiapine Yes Corey not [facility] Fumarate Fumarate Leonard defined [facility] Carvedilol Carvedilol Yes Corey not [facility] defined [facility] Furosemide Furosemide Yes Corey not [facility] defined [facility] NovoLog Mix NovoLog Mix Yes Corey not [facility] 70/30 70/30 Leonard defined [facility] - Flexpen Flexpen [facility] Alprazolam Alprazolam Yes .[address] [facility] (Xanax) (Xanax) Day [facility] - 0.25 Mg 0.25 Mg Patient Tablet Tablet s Medical Center Hydrocodone Hydrocodone Yes [address] Bit/Acetami Bit/Acetami Hours as [facility] - nophen nophen needed for Patie nt ([place] [facility] 10-325 10-325 Medical Tablet) 1 [...] 25 Mg s Tablet Tablet Medical Center No known No Methodi medications [facility] Hospita l Insulin Insulin 2018- No [facility] Aspart [...] :00 s Dose Oral Dose Oral Med [facility] Center Vital Signs Vital Name Observation Time Observation Value Comments Source WEIGHT 2020-12-07 14:17:00 78.5 kg WEIGHT 2020-12-03 06:00:00 77.3 kg HEIGHT 2020-11-30 11:30:00 154 cm HEIGHT 2020-11-27 11:20:00 154 cm WEIGHT 2020-11-27 11:20:00 74.1 kg WEIGHT 2020-10-19 06:36:00 76.8 kg WEIGHT 2020-08-10 15:12:00 81 kg WEIGHT 2020-06-22 14:32:00 79.6 kg Procedures Procedure Date / Time Performed Performing Clinician [facility] e Computed tomography of 2017-10-30 00:00:00 ACACIA KUMAR [facility] - chest without contrast Patients Medical Center Plan of Care Planned Activity Planned Date Details Comments Source Future Scheduled 2020-03-14 INFLUENZA VACCINE (#1) [facility] - Test 00:00:00 [code = INFLUENZA Medical Ce nter VACCINE (#1)] Future Scheduled 2019-07-[address] [facility] - Test 00:00:00 (12+) [code = Medical Center DEPRESSION SCREENING (12+)] Future Scheduled 2018-10-01 HEPATITIS B VACCINE ([address] [facility] - Test 00:00:00 of 2 - CpG risk 2-dose Medic al Center series) [code = HEPATITIS B VACCINE (2 of 2 - CpG risk 2-dose series)] Future Scheduled 2007-09-[address] [facility] - Test 00:00:00 WELLNESS (YEAR 2 or Medical Center FIRST YEAR if no IPPE) [code = MEDICARE ANNUAL WELLNESS (YEAR 2 or FIRST YEAR if no IPPE)] Future Scheduled [address] [facility] - Test 00:00:00 (procedure) [code = Medical Center 75706648] Future Scheduled [address] [facility] - Test 00:00:00 [facility] cervix (procedure) [code = 063861192] Future Scheduled [address] [facility] - Test 00:00:00 0-64 YRS (1 of 1 - Medical C enter PPSV23) [code = PNEUMOCOCCAL VACCINE 0-64 YRS (1 of 1 - PPSV23)] Future Scheduled [address] [facility] - Test 00:00:00 malignant neoplasm of Medica l Center breast (procedure) [code = 796092184] Future Scheduled [address] [facility] - Test 00:00:00 [facility] colon (procedure) [code = 905480259] Future Scheduled DIABETES: [facility]INAL [facility] EX[facility] [code = DIABETES: RETINAL EYE EXAM] Future Scheduled DIABETIC FOOT EX[facility] Test [code = DIABETIC FOOT EXAM] Future Scheduled COVID-19 VACCINE (1) [facility] [code = COVID-19 VACCINE (1)] Future Scheduled [facility] Test malignant neoplasm of cervix (procedure) [code = 727410648] Future Scheduled BREAST [facility] Test SCREENING [code = BREAST CANCER SCREENING] Future Scheduled COLONOSCOPY [facility] [code = COLONOSCOPY SCREENING] Future Scheduled SHINGLES VACCINES (#[facility]) [facility] [code = SHINGLES VACCINES (#1)] Future Scheduled [facility]FLUENZA [facility]ACCINE [facility] [code = INFLUENZA VACCINE] Encounters Start End Encounter Admission Attending Care Care Encounter Source Date/Time Date/Time Type Type Clinicians Facility Department ID 2021-03-21 2021-03-21 Outpatient FADIA JANSEN [facility] MDA [id number] 09:00:00 23:59:00 GILBERTO perez 2021-03-21 2021-03-21 Outpatient FADIA JANSEN MDA MDA [id number] 07:26:48 08:59:00 GILBERTO perez 2021-02-05 2021-02-06 Outpatient ER JIM ESPARZA Emergency [id number] 08:34:00 14:46:00 SHIRA perez 2020-12-25 2020-12-25 Outpatient FADIA SIMENTAL MDA MDA [id number] 15:22:07 15:22:07 GATITO perez 2020-12-07 2020-12-07 Outpatient FADIA CRUZ MDA MDA [id number] 14:09:22 14:31:49 YUN perez 2020-11-30 2020-12-03 Inpatient ER BELLAMY-GRICELDA [facility] [id number] 08:31:00 17:06:00 YudelkaROGELIO rso n 2020-12-02 2020-12-02 Inpatient EL BELLAMY-GRICELDA MDA MDA [id number] 15:37:00 17:05:23 Yudelka ROGELIO Alvaricardo milano n 2020-11-30 2020-11-30 Inpatient NADEGE, MDA MDA [id number] 14:19:17 14:22:52 ORVILLE perez 2020-11-29 2020-11-29 Outpatient NANCY, MDA MDA [id number] MD 12:50:42 23:59:00 YUN perez 2020-11-29 2020-11-29 Outpatient FADIA JANSEN, MDA MDA [id number] MD 13:43:09 13:43:09 GILBERTO perez 2020-11-29 2020-11-29 Outpatient FADIA JANSEN, MDA MDA [id number] MD 07:02:33 12:49:00 GILBERTO perez 2020-11-27 2020-11-27 Outpatient ELI III, MDA MDA [id number] 08:30:00 23:59:00 CRISTINA perez 2020-11-27 2020-11-27 Outpatient ELI III, MDA MDA [id number] 11:13:43 12:18:50 CRISTINA perez 2020-10-19 2020-10-19 Outpatient ER [facility], MDA Emergency [id number] 06:37:00 12:15:00 SHIRA perez 2020-08-10 2020-08-10 Outpatient NANCY, MDA MDA [id number] MD 13:49:49 15:58:39 YUN perez 2020-08-09 2020-08-09 Outpatient INDERJIT, MDA MDA [id number] MD 11:38:38 23:59:00 GILBERTO perez 2020-08-09 2020-08-09 Outpatient FADIA JANSEN, MDA MDA [id number] MD 12:44:44 12:44:44 GILBERTO perez 2020-06-22 2020-06-22 Outpatient NANCY, MDA MDA [id number] 13:55:28 15:15:41 YUN perez 2020-06-15 2020-06-15 Outpatient FADIA CRUZ, MDA MDA [id number] MD 00:00:00 00:00:00 YUN perez 2020-05-31 2020-05-31 Outpatient FADIA CRUZ, MDA MDA [id number] MD 10:51:07 10:51:07 YUN perez 2020-05-18 2020-05-18 Outpatient FADIA JANSEN MDA MDA [id number] MD 06:45:00 23:59:00 GILBERTO perez 2020-05-18 2020-05-18 Outpatient FADIA JANSEN MDA MDA [id number] MD 09:59:46 09:59:46 GILBERTO perez 2020-02-07 2020-02-08 Emergency [facility] [id number] 22:06:56 03:30:00 Rodriguez Ortiz [id number] [place] [id number] [place] [id number] [facility] 2020-02-06 2020-02-06 Telephone MADALYN Barros [id number] 00:00:00 00:00:00 Gloria RODRIGUEZ [id number] [facility] [id number] 2020-02-06 2020-02-06 Telephone Momo [facility] [id number] 00:00:00 00:00:00 Levon [facility] [id number] [place] 4.2.7.2.686 Professio [id number] nal 0[address] One 2020-02-05 2020-02-05 Laboratory Lab, [facility] [id number] 12:32:06 12:52:06 Only Fam Pob I Health [id number] [place] 4.2.7.2.686 Professio [id number] nal 044 Office [address] One 2020-01-30 2020-01-30 Emergency [facility] [id number] 14:49:44 18:01:00 Dinorah Ortiz [id number] [place] 4.2.7.2.686 [place] [id number] 2020-01-30 2020-01-30 Orders Doctor MADALYN [id number] 00:00:00 00:00:00 Only Unassigned, MICHAEL [id number] [place] [facility] 4.2.7.2.686 [id number] 2020-01-04 2020-01-04 Outpatient FADIA CRUZ, MDA MDA [id number] 00:00:00 00:00:00 YUN perez 2020-01-03 2020-01-03 Outpatient FADIA GARCIA, MDA MDA [id number] MD 00:00:00 00:00:00 RICKIE perez 2020-01-03 2020-01-03 Outpatient FADIA JANSEN, MDA MDA [id number] MD 00:00:00 00:00:00 GILBERTO perez 2020-01-01 2020-01-01 Emergency MDA MDA [id number] 08:14:08 08:14:08 Brenden perez 2019-12-15 2019-12-16 Emergency Oscar Rdz [facility] [id number] 19:10:30 01:03:00 Jim Ortiz [id number] [place] 4.2.7.2.686 [place] [address] [id number] 2019-12-02 2019-12-02 Emergency ER KOREY, MDA Emergency [id number] 07:39:47 10:44:00 VIKASH perez 2019-11-30 2019-11-30 Emergency , [facility] [id number] 12:20:39 14:51:00 Vipul Ortiz [id number] [place] 4.2.7.2.686 [place] [id number] 2019-11-17 2019-11-17 Transition Lazara Cardenas [id number] 00:00:00 00:00:00 of Care Yas Espinosa [id number] [place] 4.2.7.2.686 [id number] 2019-08-04 2019-08-04 [facility] [id number] 13:42:00 13:42:00 [facility] 2019-08-02 2019-08-02 [facility] [id number] 08:30:00 08:30:00 [facility] ent Clinics 2017-11-17 2017-11-17 Outpatient FADIA NAIR MDA MDA [id number] 00:00:00 00:00:00 VIKASH [facility] perez 2017-10-30 2017-10-31 Discharged ER ACACIA KUMAR [facility] A[id number] [facility] 01:06:00 13:30:00 Inpatient 07 [facility] - (obs) Patient [facility] 2017-05-23 [id number] 19:37:00 01:16:00 Emergency 41 [facility] - Room Patient [facility] 2017-05-19 2017-05-20 [facility] [id number] 17:55:00 02:48:00 Emergency 74 ke s - Room Patient [facility] 2017-04-18 2017-04-18 Registered ER ANDRES [facility] A[id number] [facility] 01:09:00 01:09:00 Emergency JEF 57 ke s - Room Patient [facility] 2017-01-06 2017-01-06 [facility] [id number] 12:49:00 19:28:00 Emergency 03 ke s - Room Patient [facility] Results Test Description Test Time Test Comments Results Result Comments Source ALPHA FETOPROTEIN (AFP), TUMOR MARKER 2018-09-03 16:30:00 Test Item Value Reference Range Interpretation Comme nts ALPHA-FETOPROTEIN (BEAKER) (test code = 1094) 10.9 ng/mL <10.0 H HEPATIC FUNCTION [id number] 16:13:00 Test Item Value Reference Range Interpretation [...] = 15 U/L 6-55 347) BASIC METABOLIC [id number] 16:13:00 Test Item Value Reference Range Interpretation [...] NOT APPLICABLE FOR DIALYSIS PATIEN TS. PROTHROMBIN TIME/[id number] 16:05:00 Test Item Value Reference Range Interpretation [...] PERCENT (BEAKER) (test code = 2801) Bedside [id number] 11:44:00 Test Item Value Reference Range Interpretation Comments Bedside Glucose (test code = 84282-1) 310 70-120 H Meter ID: [id number] [facility] HospitalCreatine Kinase MB 2017-10-30 19:51:00 Test Item Value Reference Range Interpretation Comments Creatine Kinase MB (test code = 0.80 0-5.0 30896-9) [facility] [id number] 19:51:00 Test Item Value Reference Range Interpretation Comments Troponin I (test code = ZAZ3530) -0.001 0-0.300 [facility] HospitalCreatine [id number] 19:44:00 Test Item Value Reference Range Interpretation Comments Creatine Kinase (test code = 2157-6) 35 29-168 [facility] HospitalVitamin B12 [id number] 10:03:00 Test Item Value Reference Range Interpretation Comments Vitamin B12 Level (test code = 18355-2) 789 213-816 [facility] HospitalFolate2018-04-19 10:03:00 Test Item Value Reference Range Interpretation Comments Folate (test code = 2284-8) 8.8 7.0-15.4 [facility] HospitalThyroid Stimulating Hormone (TSH) 2017-10-30 09:51:00 Test Item Value Reference Range Interpretation Comments Thyroid Stimulating Hormone (TSH) (test 2.053 0.350-4.940 code = 27237-0) [facility] HospitalBlood [id number] 20:02:00 Test Item Value Reference Range Interpretation Comments Blood Culture (test NO GROWTH AFTER 5 code = 89027607) DAYS, FINAL REPORT [facility] HospitalBlood [id number] 20:02:00 Test Item Value Reference Range Interpretation Comments Blood Culture (test NO GROWTH AFTER 5 code = 82792733) DAYS, FINAL REPORT [facility] [id number] 00:57:00 Test Item Value Reference Range Interpretation Comments Sodium Level (test code = 2951-2) 139 136-145 [facility] HospitalPotassium [id number] 00:57:00 Test Item Value Reference Range Interpretation Comments Potassium Level (test code = 2823-3) 2.9 3.5-5.1 LL Results called to [CORINE RN/ER] at 0053 on 05/24/17 by Anny PIERCE [place]. [facility] HospitalChloride [id number] 00:57:00 Test Item Value Reference Range Interpretation Comments Chloride Level (test code = 2075-0) 109 98-107 H [facility] HospitalCarbon Dioxide [id number] 00:57:00 Test Item Value Reference Range Interpretation Comments Carbon Dioxide Level (test code = 20 22-29 L 2027-9) [facility] HospitalAnion [id number] 00:57:00 Test Item Value Reference Range Interpretation Comments Anion Gap (test code = 33598-8) 12.9 8-16 [facility] Hospital[facility] Urea [id number] 00:57:00 Test Item Value Reference Range Interpretation Comments Blood Urea Nitrogen (test code = 6 7-26 L 3094-0) [facility] HospitalCreatinine2017-11-11 00:57:00 Test Item Value Reference Range Interpretation Comments Creatinine (test code = 2160-0) 0.67 0.57-1.11 [facility] HospitalBUN/Creatinine [id number] 00:57:00 Test Item Value Reference Range Interpretation Comments BUN/Creatinine Ratio (test code = 9 6-25 3097-3) [facility] HospitalEstimat Glomerular Filtration Rate 2017-05-24 00:57:00 Test Item Value Reference Range Interpretation Comments Estimat Glomerular Filtration Rate 60- >60 (test code = 14006-1) Ranges were taken from the National Kidney Disease Education Program and the National Kidney Foundation literature.Reference ranges:60 or greater: Edkgok54- 59 (for 3 consecutive months): Chronic kidneydisease 15 or less: Kidney failure [facility] HospitalGlucose [id number] 00:57:00 Test Item Value Reference Range Interpretation Comments Glucose Level (test code = NWP6490) 272 74-118 H [facility] HospitalCalcium [id number] 00:57:00 Test Item Value Reference Range Interpretation Comments Calcium Level (test code = 26545-3) 8.1 8.4-10.2 L [facility] [id number] 00:57:00 Test Item Value Reference Range Interpretation Comments Sodium Level (test code = 2951-2) 139 136-145 [facility] HospitalPotassium [id number] 00:57:00 Test Item Value Reference Range Interpretation Comments Potassium Level (test code = 2823-3) 2.9 3.5-5.1 LL Results called to [CORINE RN/ER] at 0053 on 05/24/17 by Anny Christensen. RB [place]. [facility] HospitalChloride Hhmst3262-97-03 00:57:00 Test Item Value Reference Range Interpretation Comments Chloride Level (test code = 2075-0) 109 98-107 H [facility] HospitalCarbon Dioxide Syqim1382-27-40 00:57:00 Test Item Value Reference Range Interpretation Comments Carbon Dioxide Level (test code = 20 22-29 L 8-9) [facility] HospitalAnion Syl0673-61-61 00:57:00 Test Item Value Reference Range Interpretation Comments Anion Gap (test code = 60947-0) 12.9 8-16 [facility] HospitalBlood Urea Jrciivnh7843-86-58 00:57:00 Test Item Value Reference Range Interpretation Comments Blood Urea Nitrogen (test code = 6 7-26 L 3094-0) [facility] HospitalCreatinine2017-11-11 00:57:00 Test Item Value Reference Range Interpretation Comments Creatinine (test code = 2160-0) 0.67 0.57-1.11 [facility] HospitalBUN/Creatinine Mlndm9879-05-34 00:57:00 Test Item Value Reference Range Interpretation Comments BUN/Creatinine Ratio (test code = 9 6-25 3097-3) [facility] HospitalEstimat Glomerular Filtration Rate 2017-05-24 00:57:00 Test Item Value Reference Range Interpretation Comments Estimat Glomerular Filtration Rate 60- >60 (test code = 40985-7) Ranges were taken from the National Kidney Disease Education Program and the National Kidney Foundation literature.Reference ranges:60 or greater: Tujdlw33- 59 (for 3 consecutive months): Chronic kidneydisease 15 or less: Kidney failure [facility] HospitalGlucose Amcrw6886-95-09 00:57:00 Test Item Value Reference Range Interpretation Comments Glucose Level (test code = OFZ5009) 272 74-118 H [facility] HospitalCalcium Sidde6675-84-76 00:57:00 Test Item Value Reference Range Interpretation Comments Calcium Level (test code = 03731-1) 8.1 8.4-10.2 L [facility] HospitalT[facility] Fpyjqtpiu2049-50-27 21:06:00 Test Item Value Reference Range Interpretation Comments Total Bilirubin (test code = 1975-2) 0.6 0.2-1.2 [facility] HospitalAspartate Amino Transf (AST/SGOT) 2017-05-23 21:06:00 Test Item Value Reference Range Interpretation Comments Aspartate Amino Transf (AST/SGOT) (test 50 5-34 H code = Aspartate Amino Transf (AST/SGOT)) [facility] HospitalAlanine Aminotransferase (ALT/SGPT) 2017-05-23 21:06:00 Test Item Value Reference Range Interpretation Comments Alanine Aminotransferase (ALT/SGPT) 46 0-55 (test code = 1742-6) [facility] HospitalTotal Mjyzlmg1277-16-92 21:06:00 Test Item Value Reference Range Interpretation Comments Total Protein (test code = 2885-2) 7.3 6.5-8.1 [facility] HospitalAlbumin2017-11-10 21:06:00 Test Item Value Reference Range Interpretation Comments Albumin (test code = 1751-7) 3.1 3.5-5.0 L [facility] HospitalGlobulin2017-11-10 21:06:00 Test Item Value Reference Range Interpretation Comments Globulin (test code = 48403-1) 4.2 2.3-3.5 H [facility] HospitalAlbumin/Globulin Qpkza3927-16-16 21:06:00 Test Item Value Reference Range Interpretation Comments Albumin/Globulin Ratio (test code = 0.7 0.8-2.0 L 1759-0) [facility] HospitalAlkaline Rxkkroldike1494-64-05 21:06:00 Test Item Value Reference Range Interpretation Comments Alkaline Phosphatase (test code = 196 40-150 H 6768-6) [facility] HospitalTotal Dhdloxycc3884-17-31 21:06:00 Test Item Value Reference Range Interpretation Comments Total Bilirubin (test code = 1975-2) 0.6 0.2-1.2 [facility] HospitalAspartate Amino Transf (AST/SGOT) 2017-05-23 21:06:00 Test Item Value Reference Range Interpretation Comments Aspartate Amino Transf (AST/SGOT) (test 50 5-34 H code = Aspartate Amino Transf (AST/SGOT)) [facility] HospitalAlanine Aminotransferase (ALT/SGPT) 2017-05-23 21:06:00 Test Item Value Reference Range Interpretation Comments Alanine Aminotransferase (ALT/SGPT) 46 0-55 (test code = 1742-6) [facility] Onhwdky3375-79-71 21:06:00 Test Item Value Reference Range Interpretation Comments Total Protein (test code = 2885-2) 7.3 6.5-8.1 [facility] HospitalAlbumin2017-11-10 21:06:00 Test Item Value Reference Range Interpretation Comments Albumin (test code = 1751-7) 3.1 3.5-5.0 L [facility] HospitalGlobulin2017-11-10 21:06:00 Test Item Value Reference Range Interpretation Comments Globulin (test code = 26505-5) 4.2 2.3-3.5 H [facility] HospitalAlbumin/Globulin Oqeoa2783-06-19 21:06:00 Test Item Value Reference Range Interpretation Comments Albumin/Globulin Ratio (test code = 0.7 0.8-2.0 L 1759-0) [facility] HospitalAlkaline Buoyiqfmpcb1493-66-29 21:06:00 Test Item Value Reference Range Interpretation Comments Alkaline Phosphatase (test code = 196 40-150 H 6768-6) [facility] HospitalWhite Blood Sxczq4616-02-67 20:53:00 Test Item Value Reference Range Interpretation Comments White Blood Count (test code = 6690-2) 6.48 4.8-10.8 [facility] HospitalRed Blood Tavci9855-14-48 20:53:00 Test Item Value Reference Range Interpretation Comments Red Blood Count (test code = 789-8) 4.15 3.6-5.1 [facility] HospitalHemoglobin2017-11-10 20:53:00 Test Item Value Reference Range Interpretation Comments Hemoglobin (test code = 54307-8) 12.4 12.0-16.0 [facility] HospitalHematocrit2017-11-10 20:53:00 Test Item Value Reference Range Interpretation Comments Hematocrit (test code = 4544-3) 36.8 34.2-44.1 [facility] HospitalMean Corpuscular Emwouh9239-28-16 20:53:00 Test Item Value Reference Range Interpretation Comments Mean Corpuscular Volume (test code = 88.7 81-99 787-2) [facility] HospitalMean Corpuscular Rgoqzqcaku7708-59-55 20:53:00 Test Item Value Reference Range Interpretation Comments Mean Corpuscular Hemoglobin (test code 29.9 28-32 = 785-6) [facility] HospitalMean Corpuscular Hemoglobin Concent 2017-05-23 20:53:00 Test Item Value Reference Range Interpretation Comments Mean Corpuscular Hemoglobin Concent 33.7 31-35 (test code = 786-4) [facility] HospitalRed Cell Distribution Csoyd6488-01-34 20:53:00 Test Item Value Reference Range Interpretation Comments Red Cell Distribution Width (test code 14.0 11.7-14.4 = 06613-6) [facility] HospitalPlatelet Juiap4113-84-02 20:53:00 Test Item Value Reference Range Interpretation Comments Platelet Count (test code = 777-3) 54 140-360 L [facility] HospitalNeutrophils (%) (Auto)2017-05-23 20:53:00 Test Item Value Reference Range Interpretation Comments Neutrophils (%) (Auto) (test code = 72.3 38.7-80.0 94741-6) [facility] HospitalLymphocytes (%) (Auto)2017-05-23 20:53:00 Test Item Value Reference Range Interpretation Comments Lymphocytes (%) (Auto) (test code = 21.1 18.0-39.1 736-9) [facility] HospitalMonocytes (%) (Auto)2017-05-23 20:53:00 Test Item Value Reference Range Interpretation Comments Monocytes (%) (Auto) (test code = 5.1 4.4-11.3 5905-5) [facility] HospitalEosinophils (%) (Auto)2017-05-23 20:53:00 Test Item Value Reference Range Interpretation Comments Eosinophils (%) (Auto) (test code = 0.9 0.0-6.0 713-8) [facility] HospitalBasophils (%) (Auto)2017-05-23 20:53:00 Test Item Value Reference Range Interpretation Comments Basophils (%) (Auto) (test code = 0.3 0.0-1.0 706-2) [facility] HospitalIM GRANULOCYTES %2017-05-23 20:53:00 Test Item Value Reference Range Interpretation Comments IM GRANULOCYTES % (test code = IM 0.3 0.0-1.0 GRANULOCYTES %) [facility] HospitalNeutrophils # (Auto)2017-05-23 20:53:00 Test Item Value Reference Range Interpretation Comments Neutrophils # (Auto) (test code = 4.7 2.1-6.9 751-8) [facility] HospitalLymphocytes # (Auto)2017-05-23 20:53:00 Test Item Value Reference Range Interpretation Comments Lymphocytes # (Auto) (test code = 1.4 1.0-3.2 85842-8) [facility] HospitalMonocytes # (Auto)2017-05-23 20:53:00 Test Item Value Reference Range Interpretation Comments Monocytes # (Auto) (test code = 742-7) 0.3 0.2-0.8 [facility] HospitalEosinophils # (Auto)2017-05-23 20:53:00 Test Item Value Reference Range Interpretation Comments Eosinophils # (Auto) (test code = 0.1 0.0-0.4 711-2) [facility] HospitalBasophils # (Auto)2017-05-23 20:53:00 Test Item Value Reference Range Interpretation Comments Basophils # (Auto) (test code = 704-7) 0.0 0.0-0.1 [facility] HospitalAbsolute Immature Granulocyte (auto 2017-05-23 20:53:00 Test Item Value Reference Range Interpretation Comments Absolute Immature Granulocyte (auto 0.02 0-0.1 (test code = Absolute Immature Granulocyte (auto) [facility] HospitalWhite Blood Libjx4171-91-70 20:53:00 Test Item Value Reference Range Interpretation Comments White Blood Count (test code = 6690-2) 6.48 4.8-10.8 [facility] HospitalRed Blood Tamtq6310-78-36 20:53:00 Test Item Value Reference Range Interpretation Comments Red Blood Count (test code = 789-8) 4.15 3.6-5.1 [facility] HospitalHemoglobin2017-11-10 20:53:00 Test Item Value Reference Range Interpretation Comments Hemoglobin (test code = 31424-1) 12.4 12.0-16.0 [facility] HospitalHematocrit2017-11-10 20:53:00 Test Item Value Reference Range Interpretation Comments Hematocrit (test code = 4544-3) 36.8 34.2-44.1 [facility] HospitalMean Corpuscular Tzppwt5658-74-28 20:53:00 Test Item Value Reference Range Interpretation Comments Mean Corpuscular Volume (test code = 88.7 81-99 787-2) [facility] HospitalMean Corpuscular Pldirtjpax0986-49-02 20:53:00 Test Item Value Reference Range Interpretation Comments Mean Corpuscular Hemoglobin (test code 29.9 28-32 = 785-6) [facility] HospitalMean Corpuscular Hemoglobin Concent 2017-05-23 20:53:00 Test Item Value Reference Range Interpretation Comments Mean Corpuscular Hemoglobin Concent 33.7 31-35 (test code = 786-4) [facility] HospitalRed Cell Distribution Fmlco1891-45-43 20:53:00 Test Item Value Reference Range Interpretation Comments Red Cell Distribution Width (test code 14.0 11.7-14.4 = 13353-2) [facility] HospitalPlatelet Tivlq7034-44-62 20:53:00 Test Item Value Reference Range Interpretation Comments Platelet Count (test code = 777-3) 54 140-360 L [facility] HospitalNeutrophils (%) (Auto)2017-05-23 20:53:00 Test Item Value Reference Range Interpretation Comments Neutrophils (%) (Auto) (test code = 72.3 38.7-80.0 42351-3) [facility] HospitalLymphocytes (%) (Auto)2017-05-23 20:53:00 Test Item Value Reference Range Interpretation Comments Lymphocytes (%) (Auto) (test code = 21.1 18.0-39.1 736-9) [facility] HospitalMonocytes (%) (Auto)2017-05-23 20:53:00 Test Item Value Reference Range Interpretation Comments Monocytes (%) (Auto) (test code = 5.1 4.4-11.3 5905-5) [facility] HospitalEosinophils (%) (Auto)2017-05-23 20:53:00 Test Item Value Reference Range Interpretation Comments Eosinophils (%) (Auto) (test code = 0.9 0.0-6.0 713-8) [facility] HospitalBasophils (%) (Auto)2017-05-23 20:53:00 Test Item Value Reference Range Interpretation Comments Basophils (%) (Auto) (test code = 0.3 0.0-1.0 706-2) [facility] HospitalIM GRANULOCYTES %2017-05-23 20:53:00 Test Item Value Reference Range Interpretation Comments IM GRANULOCYTES % (test code = IM 0.3 0.0-1.0 GRANULOCYTES %) [facility] HospitalNeutrophils # (Auto)2017-05-23 20:53:00 Test Item Value Reference Range Interpretation Comments Neutrophils # (Auto) (test code = 4.7 2.1-6.9 751-8) [facility] HospitalLymphocytes # (Auto)2017-05-23 20:53:00 Test Item Value Reference Range Interpretation Comments Lymphocytes # (Auto) (test code = 1.4 1.0-3.2 49968-1) [facility] HospitalMonocytes # (Auto)2017-05-23 20:53:00 Test Item Value Reference Range Interpretation Comments Monocytes # (Auto) (test code = 742-7) 0.3 0.2-0.8 [facility] HospitalEosinophils # (Auto)2017-05-23 20:53:00 Test Item Value Reference Range Interpretation Comments Eosinophils # (Auto) (test code = 0.1 0.0-0.4 711-2) [facility] HospitalBasophils # (Auto)2017-05-23 20:53:00 Test Item Value Reference Range Interpretation Comments Basophils # (Auto) (test code = 704-7) 0.0 0.0-0.1 [facility] HospitalAbsolute Immature Granulocyte (auto 2017-05-23 20:53:00 Test Item Value Reference Range Interpretation Comments Absolute Immature Granulocyte (auto 0.02 0-0.1 (test code = Absolute Immature Granulocyte (auto) [facility] HospitalBedside Nugdski4052-75-02 02:22:00 Test Item Value Reference Range Interpretation Comments Bedside Glucose (test code = 51651-7) 337 70-120 H Meter ID: [id number] Heart & Surgical HospitalCreatine Kinase MB 2017-05-19 20:46:00 Test Item Value Reference Range Interpretation Comments Creatine Kinase MB (test code = 2.30 0.00-5.00 19621-0) [facility] HospitalTroponin T5474-75-00 20:46:00 Test Item Value Reference Range Interpretation Comments Troponin I (test code = KRB1132) 0.007 0-0.300 [facility] HospitalMagnesium Tricc7489-28-47 20:42:00 Test Item Value Reference Range Interpretation Comments Magnesium Level (test code = 68973-2) 1.7 1.3-2.1 [facility] HospitalCreatine Alvixk5958-42-01 20:42:00 Test Item Value Reference Range Interpretation Comments Creatine Kinase (test code = 2157-6) 81 29-168 [facility] HospitalMaesium Tzknl6452-00-65 20:42:00 Test Item Value Reference Range Interpretation Comments Magnesium Level (test code = 55017-1) 1.7 1.3-2.1 [facility] HospitalProthrombin Yrdo2696-54-39 20:34:00 Test Item Value Reference Range Interpretation Comments Prothrombin Time (test code = 5902-2) 12.9 11.9-14.5 [facility] HospitalProthromb Time International Ratio 2017-05-19 20:34:00 Test Item Value Reference Range Interpretation Comments Prothromb Time International Ratio 0.93 (test code = 6301-6) Oral Anticoagulant Therapy INR Values:1. Low Intensity Therapy 1.5 - 2.02. Moderate IntensityTherapy 2.0 - 3.03. High Intensity Therapy(1) 2.5 - 3.54. High Intensity Therapy(2) 3.0 - 4.05. Panic Value INR > 5.0[facility] HospitalActivated Partial Thromboplast Time 2017-05-19 20:34:00 Test Item Value Reference Range Interpretation Comments Activated Partial Thromboplast Time 27.5 23.8-35.5 (test code = 23058-9) [facility] HospitalProthrombin Bnvg3928-42-37 20:34:00 Test Item Value Reference Range Interpretation Comments Prothrombin Time (test code = 5902-2) 12.9 11.9-14.5 [facility] HospitalProthromb Time International Ratio 2017-05-19 20:34:00 Test Item Value Reference Range Interpretation Comments Prothromb Time International Ratio 0.93 (test code = 6301-6) Oral Anticoagulant Therapy INR Values:1. Low Intensity Therapy 1.5 - 2.02. Moderate IntensityTherapy 2.0 - 3.03. High Intensity Therapy(1) 2.5 - 3.54. High Intensity Therapy(2) 3.0 - 4.05. Panic Value INR > 5.0[facility] HospitalActivated Partial Thromboplast Time 2017-05-19 20:34:00 Test Item Value Reference Range Interpretation Comments Activated Partial Thromboplast Time 27.5 23.8-35.5 (test code = 92317-8) [facility] HospitalUrine ZZZ0143-86-28 20:13:00 Test Item Value Reference Range Interpretation Comments Urine WBC (test code = 5821-4) 0-5 0-5 [facility] HospitalUrine [id number] 20:13:00 Test Item Value Reference Range Interpretation Comments Urine RBC (test code = 99388-3) NONE 0-5 [facility] HospitalUrine Jixbfgfo8056-79-07 20:13:00 Test Item Value Reference Range Interpretation Comments Urine Bacteria (test code = 86537-0) FEW NONE [facility] HospitalUrine Epithelial Lwfmd0227-34-19 20:13:00 Test Item Value Reference Range Interpretation Comments Urine Epithelial Cells (test code = FEW NONE 93704-2) [facility] HospitalUrine [id number] 20:13:00 Test Item Value Reference Range Interpretation Comments Urine WBC (test code = 5821-4) 0-5 0-5 [facility] HospitalUrine NJJ1221-48-08 20:13:00 Test Item Value Reference Range Interpretation Comments Urine RBC (test code = 77696-4) NONE 0-5 [facility] HospitalUrine Ybuazqhh8643-87-30 20:13:00 Test Item Value Reference Range Interpretation Comments Urine Bacteria (test code = 98252-1) FEW NONE [facility] HospitalUrine Epithelial Uqrrb4489-66-04 20:13:00 Test Item Value Reference Range Interpretation Comments Urine Epithelial Cells (test code = FEW NONE 13823-3) [facility] HospitalUrine Dgzhw2406-71-40 19:42:00 Test Item Value Reference Range Interpretation Comments Urine Color (test code = 5778-6) STRAW YELLOW [facility] HospitalUrine Cqrvdko2967-68-96 19:42:00 Test Item Value Reference Range Interpretation Comments Urine Clarity (test code = 48562-1) CLEAR CLEAR [facility] Specific Xvflggb5428-68-83 19:42:00 Test Item Value Reference Range Interpretation Comments Urine Specific [place] (test code = 1.005 1.010-1.025 L 5811-5) [facility] lW4422-87-72 19:42:00 Test Item Value Reference Range Interpretation Comments Urine pH (test code = 94082-2) 7 5-7 [facility] Leukocyte Orxrcmze2763-31-02 19:42:00 Test Item Value Reference Range Interpretation Comments Urine Leukocyte Esterase (test code NEGATIVE NEGATIVE = 5799-2) [facility] Jghufeq0888-44-31 19:42:00 Test Item Value Reference Range Interpretation Comments Urine Nitrite (test code = 14398-1) NEGATIVE NEGATIVE [facility] Zklgcbi2903-73-45 19:42:00 Test Item Value Reference Range Interpretation Comments Urine Protein (test code = 5804-0) NEGATIVE NEGATIVE [facility] Glucose (UA)2017-05-19 19:42:00 Test Item Value Reference Range Interpretation Comments Urine Glucose (UA) (test code = 2349-9) 3+ NEGATIVE H [facility] Fwomnvj7353-66-59 19:42:00 Test Item Value Reference Range Interpretation Comments Urine Ketones (test code = 76170-3) NEGATIVE NEGATIVE [facility] Bxbnoacfjbqp8971-24-68 19:42:00 Test Item Value Reference Range Interpretation Comments Urine Urobilinogen (test code = 1 0.2-1 76828-4) [facility] Iacdcpuux1259-71-69 19:42:00 Test Item Value Reference Range Interpretation Comments Urine Bilirubin (test code = 1978-6) NEGATIVE NEGATIVE [facility] HospitalUrine Yhqov4789-97-76 19:42:00 Test Item Value Reference Range Interpretation Comments Urine Blood (test code = 25328-3) NEGATIVE NEGATIVE [facility] HospitalUrine Strbp8236-82-77 19:42:00 Test Item Value Reference Range Interpretation Comments Urine Color (test code = 5778-6) STRAW YELLOW [facility] HospitalUrine Adyqvjq8795-36-79 19:42:00 Test Item Value Reference Range Interpretation Comments Urine Clarity (test code = 91324-2) CLEAR CLEAR [facility] HospitalUrine Specific Nhxlnnz5855-95-01 19:42:00 Test Item Value Reference Range Interpretation Comments Urine Specific [place] (test code = 1.005 1.010-1.025 L 5811-5) [facility] HospitalUrine [id number] 19:42:00 Test Item Value Reference Range Interpretation Comments Urine pH (test code = 72673-0) 7 5-7 [facility] HospitalUrine Leukocyte Xjusiqwq8063-26-50 19:42:00 Test Item Value Reference Range Interpretation Comments Urine Leukocyte Esterase (test code NEGATIVE NEGATIVE = 5799-2) [facility] HospitalUrine Dgwbrqt2598-29-19 19:42:00 Test Item Value Reference Range Interpretation Comments Urine Nitrite (test code = 50081-9) NEGATIVE NEGATIVE [facility] HospitalUrine Eexqxto7281-98-88 19:42:00 Test Item Value Reference Range Interpretation Comments Urine Protein (test code = 5804-0) NEGATIVE NEGATIVE [facility] HospitalUrine Glucose (UA)2017-05-19 19:42:00 Test Item Value Reference Range Interpretation Comments Urine Glucose (UA) (test code = 2349-9) 3+ NEGATIVE H [facility] HospitalUrine Czzreoh4690-03-77 19:42:00 Test Item Value Reference Range Interpretation Comments Urine Ketones (test code = 14058-9) NEGATIVE NEGATIVE [facility] HospitalUrine Clfrawungobp1232-66-82 19:42:00 Test Item Value Reference Range Interpretation Comments Urine Urobilinogen (test code = 1 0.2-1 01995-8) [facility] HospitalUrine Oglymflty4155-13-80 19:42:00 Test Item Value Reference Range Interpretation Comments Urine Bilirubin (test code = 1978-6) NEGATIVE NEGATIVE [facility] HospitalUrine Vfery4475-54-24 19:42:00 Test Item Value Reference Range Interpretation Comments Urine Blood (test code = 08881-3) NEGATIVE NEGATIVE [facility] HospitalAmylase Gavyx9125-92-03 02:32:00 Test Item Value Reference Range Interpretation Comments Amylase Level (test code = 1798-8) 49 25-125 [facility] HospitalLipase2017-10-06 02:32:00 Test Item Value Reference Range Interpretation Comments Lipase (test code = 3040-3) 51 78 [facility] HospitalAmylase Ubzoo6275-51-60 02:32:00 Test Item Value Reference Range Interpretation Comments Amylase Level (test code = 1798-8) 49 25-125 [facility] HospitalLipase2017-10-06 02:32:00 Test Item Value Reference Range Interpretation Comments Lipase (test code = 3040-3) 51 [facility] HospitalPlatelet Fsxqbhwj4950-73-80 17:00:00 Test Item Value Reference Range Interpretation Comments Platelet Estimate (test SLIGHTLY DECREASED code = 05767-8) [facility] HospitalPlatelet Morphology Ugheiqs5863-66-50 17:00:00 Test Item Value Reference Range Interpretation Comments Platelet Morphology Comment (test FEW LARGE code = 60552-4) No platelet clumps seen on smearLubbock Heart & Surgical HospitalRed Cell Morphology Ghdxawz0128-78-07 17:00:00 Test Item Value Reference Range Interpretation Comments Red Cell Morphology Comment (test code NORMAL = 6742-1) [facility] HospitalPlatelet Wlqussnm8379-19-17 17:00:00 Test Item Value Reference Range Interpretation Comments Platelet Estimate (test SLIGHTLY DECREASED code = 50467-5) [facility] HospitalPlatelet Morphology Jrebywc5149-88-35 17:00:00 Test Item Value Reference Range Interpretation Comments Platelet Morphology Comment (test FEW LARGE code = 95756-7) No platelet clumps seen on smearLubbock Heart & Surgical HospitalRed Cell Morphology Jxygmbz7141-63-16 17:00:00 Test Item Value Reference Range Interpretation Comments Red Cell Morphology Comment (test code NORMAL = 6742-1) [facility] HospitalUrine Hyaline Harzp7221-02-84 14:57:00 Test Item Value Reference Range Interpretation Comments Urine Hyaline Casts (test code = 2-5 0-1 H 86543-2) [facility] HospitalUrine Cmnvv6896-01-62 14:57:00 Test Item Value Reference Range Interpretation Comments Urine Yeast (test code = 48245-8) FEW NONE H [facility] HospitalUrine Hyaline Fhcge0973-38-67 14:57:00 Test Item Value Reference Range Interpretation Comments Urine Hyaline Casts (test code = 2-5 0-1 H 16037-5) [facility] HospitalUrine Yazcz6799-29-51 14:57:00 Test Item Value Reference Range Interpretation Comments Urine Yeast (test code = 17310-1) FEW NONE [facility] [address] [address] Patient Name : GERA PALUMBO MR #: [id number] : 1960 Age/Sex: 57/F Adm Physician : ACACIA KUMAR MD Admit Date : 10/30/17 Location : [facility] Room/Bed : [place] [address] REPORT: Cardiology Report DATE OF STUDY: October [...] function, calculated ejection fraction 54%. Job#: [id number] GH cc: ACACIA KUMAR MD Signature Date Dictated By: VANNESA ANTON MD Transcribed By: SMEDS on 10/31/17 <Electronically signed by VANNESA ANTON MD><<Signature on File>>11/02/17 1412 COPY TO:CT CHEST WO [place] [address] Patient Name: GEAR PALUMBO MR #: [id number] : 1960 Age/Sex: 57/F Req #: [id number] Adm Physician: ACACIA KUMAR MD Ordered by: ACACIA KUMAR MD Report #: [id number] Location: [facility] Room/Bed: [place] [address] Procedure: [id number] CT/CT CHEST WO Exam Date: 10/30/17 Exam [...] on 10/30/17 1318 COPY TO: ACACIA KUMAR ACUTE SERIES W/PA CXR [place] [address] Patient Name: GERA PALUMBO MR #: [id number] : 1960 Age/Sex: 56/F Req #: [id number] Adm Physician: Ordered by: JEF CAMPOS MD Report #: [id number] Location: ER Room/Bed: Procedure: [id number] DX/ABDOMEN ACUTE SERIES W/PA CXR Exam Date: [...]
[2021-03-28 12:59] LABS: Urine Blood 3+ (Negative); Urine Glucose Negative (Negative); Urine Protein 2+ (Negative); Urine Specific Gravity 1.025 (1.005-1.030); Urine pH 6.5 (5.0-7.0)
--- NOTE | 2021-03-28 13:58 | EDPHYS ---
Physician Documentation [facility] Name: Jeannette Ashby Age: 60 yrs Sex: Female : 1960 Arrival Date: 03/28/2021 Time: 12:12 Bed 9 Private MD: ED Physician Eddy Singh HPI: 03/28 13:54 This 60 yrs old Female presents to ER via Ambulatory with complaints of rn Urinary Problem. 13:54 The patient presents with urinary symptoms, dysuria, frequency, urgency. Onset: The rn symptoms/episode began/occurred 1 week(s) ago. 13:55 Modifying factors: The symptoms are alleviated by nothing, the symptoms are aggravated rn by urinating. Associated signs and symptoms: Pertinent positives: dysuria, urinary frequency, Pertinent negatives: fever. Severity of symptoms: At their worst the symptoms were mild, in the emergency department the symptoms are unchanged. The patient has experienced similar episodes in the past. The patient has been recently seen by a physician:. Usman treated 1 week ago with Flagyl for urinary infection. Does not know why she was given Flagyl for UTI but completed it. Reports does not feel worse but still having urinary symptoms. No fever. No vomiting. No back or kidney pain.. Historical: - Allergies: 12:23 Darvocet-N 100; ld1 12:23 Demerol; ld1 12:23 Erythromycin; ld1 12:23 Toradol; ld1 12:23 tramadol; ld1 12:23 Zithromax; ld1 - Home Meds: 12:23 ernestro [Active]; Seroquel Oral [Active]; carvedilol 6.25 mg oral tab 1 tab [Active]; ld1 - PMHx: 12:23 Anxiety; CHF; Chronic pain; Colitis; COPD; Depression; Diabetes - IDDM; Hypertension; ld1 MUSCLE WEAKNESS; Liver cell carcinoma; Cancer, Breast; - Immunization history:: Adult Immunizations up to date, Client reports receiving the 2nd dose of the Covid vaccine, Client reports receiving the 2nd dose of the Covid vaccine, Date received: October 03, 2020. - Social history:: Smoking status: Patient reports the use of cigarette tobacco products, smokes one-half pack cigarettes per day. - Family history:: not pertinent. - Hospitalizations: : No recent hospitalization is reported. ROS: 13:55 Constitutional: Negative for fever, chills, and weight loss, Eyes: Negative for injury, rn pain, redness, and discharge, Neck: Negative for injury, pain, and swelling, Cardiovascular: Negative for chest pain, palpitations, and edema, Respiratory: Negative for shortness of breath, cough, wheezing, and pleuritic chest pain, Abdomen/GI: Negative for abdominal pain, nausea, vomiting, diarrhea, and constipation, Back: Negative for injury and pain, : Positive for dysuria and increased frequency MS/Extremity: Negative for injury and deformity, Skin: Negative for injury, rash, and discoloration, Neuro: Negative for headache, weakness, numbness, tingling, and seizure. Exam: 13:55 Constitutional: This is a well developed, well nourished patient who is awake, alert, rn and in no acute distress. Head/Face: Normocephalic, atraumatic. Eyes: Periorbital areas with no swelling, redness, or edema. Cardiovascular: Regular rate and rhythm. No pulse deficits. Respiratory: No increased work of breathing, no retractions or nasal flaring. Abdomen/GI: Soft, non-tender Back: No spinal tenderness. No costovertebral tenderness. Full range of motion. Skin: Warm, dry MS/ Extremity: Pulses equal, no cyanosis. Neurovascular intact. Full, normal range of motion. Equal circumference. Neuro: Awake and alert, GCS 15 Vital Signs: 12:19 BP 149 / 74; Pulse 72; Resp 18; Temp 98.7(TE); Pulse Ox 94% on R/A; Weight 77.11 kg; ld1 Height 5 ft. 3 in. (160.02 cm); Pain 8/10; 13:25 BP 146 / 77; Pulse 74; Resp 18; Pulse Ox 95% on R/A; ld1 12:19 Body Mass Index 30.11 (77.11 kg, 160.02 cm) ld1 MDM: 12:28 Patient medically screened. rn 13:55 Differential diagnosis: urinary tract infection. Data reviewed: vital signs, nurses rn notes, lab test result(s), and as a result, I will discharge patient. Counseling: I had a detailed discussion with the patient and/or guardian regarding: the historical points, exam findings, and any diagnostic results supporting the discharge/admit diagnosis, lab results, the need for outpatient follow up, to return to the emergency department if symptoms worsen or persist or if there are any questions or concerns that arise at home. Special discussion: I discussed with the patient/guardian in detail that at this point there is no indication for admission to the hospital. It is understood, however, that if the symptoms persist or worsen the patient needs to return immediately for re-evaluation. ED course: Patient nontoxic, stable vitals, afebrile, not sure why she was given Flagyl for UTI, but still signs of UTI clinically and on urine dip. Will give Rocephin IM here and DC with antibiotics.. 03/28 12:46 Order name: Urine Culture rn 03/28 12:46 Order name: Urine Microscopic Only rn 03/28 12:47 Order name: Urine Culture [facility] 03/28 12:47 Order name: Urine Microscopic Only [facility] 03/28 12:58 Order name: Urine Dipstick-Ancillary; Complete Time: 13:53 [facility] 03/28 12:46 Order name: Urine Dipstick-Ancillary (obtain specimen); Complete Time: 12:59 rn Administered Medications: 14:00 Drug: Rocephin (cefTRIAXone) 1 grams Route: IM; Site: left gluteus; ld1 14:14 Follow up: Response: No adverse reaction ld1 Disposition Summary: 03/28/21 13:58 Discharge Ordered Location: Home rn Problem: an ongoing problem rn Symptoms: are unchanged rn Condition: Stable rn Diagnosis - UTI/ Urinary tract infection, site not specified rn Followup: rn - With: Private Physician - When: As needed - Reason: Recheck today's complaints, Re-evaluation by your physician Discharge Instructions: - Discharge Summary Sheet rn - Dysuria rn - Urinary Tract Infection, Adult rn Forms: - Medication Reconciliation Form rn - Thank You Letter rn - Antibiotic [employer] learning [employer] - Prescription Opioid Use rn Prescriptions: - cefpodoxime 100 mg Oral Tablet - take 2 tablets by ORAL route every 12 hours for 10 days take with food; 40 rn tablet; Refills: 0, Product Selection Permitted Signatures: Dispatcher [employer] Eddy Willams MD MD rn Dibbern, Lauren, RN RN ld1
--- NOTE | 2021-03-28 13:58 | ER ---
Nurse's Notes [facility] Name: Jeannette Ashby Age: 60 yrs Sex: Female : 1960 Arrival Date: 03/28/2021 Time: 12:12 Bed 9 Private MD: Diagnosis: UTI/ Urinary tract infection, site not specified Presentation: 03/28 12:19 Chief complaint: Patient states: "I went to my PCP last Friday \\T\\ I received antibiotics ld1 (Flagyl) for a UTI. I took all of my meds but it is getting worse and it warner when I pee.". Coronavirus screen: At this time, the client does not indicate any symptoms associated with coronavirus-19. Ebola Screen: No symptoms or risks identified at this time. Initial Sepsis Screen: Does the patient meet any 2 criteria? No. Patient's initial sepsis screen is negative. Does the patient have a suspected source of infection? No. Patient's initial sepsis screen is negative. Risk Assessment: Do you want to hurt yourself or someone else? Patient reports no desire to harm self or others. Onset of symptoms was March 28, 2021. 12:19 Method Of Arrival: Ambulatory ld1 12:19 Acuity: VERONICA 3 ld1 Triage Assessment: 12:23 General: Appears in no apparent distress. comfortable, Behavior is calm, cooperative, ld1 appropriate for age. Pain: Complains of pain in suprapubic area Pain does not radiate. Pain currently is 8 out of 10 on a pain scale. Quality of pain is described as burning, stabbing, Pain began 1 week ago. Is continuous. EENT: No signs and/or symptoms were reported regarding the EENT system. Neuro: Level of Consciousness is awake, alert, obeys commands, Oriented to person, place, time, situation, Appropriate for age. Cardiovascular: Capillary refill < 3 seconds Patient's skin is warm and dry. Respiratory: Airway is patent Respiratory effort is even, unlabored, Respiratory pattern is regular, symmetrical. GI: Abdomen is round non-distended. : Reports burning with urination, since 1 week incontinence, urinary frequency. Derm: No signs and/or symptoms reported regarding the dermatologic system. Musculoskeletal: No signs and/or symptoms reported regarding the musculoskeletal system. Historical: - Allergies: 12:23 Darvocet-N 100; ld1 12:23 Demerol; ld1 12:23 Erythromycin; ld1 12:23 Toradol; ld1 12:23 tramadol; ld1 12:23 Zithromax; ld1 - Home Meds: 12:23 ernestro [Active]; Seroquel Oral [Active]; carvedilol 6.25 mg oral tab 1 tab [Active]; ld1 - PMHx: 12:23 Anxiety; CHF; Chronic pain; Colitis; COPD; Depression; Diabetes - IDDM; Hypertension; ld1 MUSCLE WEAKNESS; Liver cell carcinoma; Cancer, Breast; - Immunization history:: Adult Immunizations up to date, Client reports receiving the 2nd dose of the Covid vaccine, Client reports receiving the 2nd dose of the Covid vaccine, Date received: October 03, 2020. - Social history:: Smoking status: Patient reports the use of cigarette tobacco products, smokes one-half pack cigarettes per day. - Family history:: not pertinent. - Hospitalizations: : No recent hospitalization is reported. Screenin:34 Abuse screen: Denies threats or abuse. Denies injuries from another. Nutritional ld1 screening: No deficits noted. On. Tuberculosis screening: No symptoms or risk factors identified. Fall Risk None identified. Assessment: 12:34 Reassessment: Patient appears in no apparent distress at this time. Patient is alert, ld1 oriented x 3, equal unlabored respirations, skin warm/dry/pink. See triage assessment. 13:25 Reassessment: Patient appears in no apparent distress at this time. Patient and/or ld1 family updated on plan of care and expected duration. Pain level reassessed. Patient is alert, oriented x 3, equal unlabored respirations, skin warm/dry/pink. Vital Signs: 12:19 BP 149 / 74; Pulse 72; Resp 18; Temp 98.7(TE); Pulse Ox 94% on R/A; Weight 77.11 kg; ld1 Height 5 ft. 3 in. (160.02 cm); Pain 8/10; 13:25 BP 146 / 77; Pulse 74; Resp 18; Pulse Ox 95% on R/A; ld1 12:19 Body Mass Index 30.11 (77.11 kg, 160.02 cm) ld1 ED Course: 12:12 Patient arrived in ED. mr 12:23 Triage completed. ld1 12:23 Arm band placed on right wrist. ld1 12:28 Eddy Singh MD is Attending Physician. rn 12:34 Patient has correct armband on for positive identification. Bed in low position. Call ld1 light in reach. Side rails up X2. Pulse ox on. NIBP on. Door closed. Noise minimized. Warm blanket given. 12:34 No provider procedures requiring assistance completed. ld1 12:59 Urine Microscopic Only Sent. ld1 12:59 Urine Culture Sent. ld1 14:14 Patient did not have IV access during this emergency room visit. ld1 Administered Medications: 14:00 Drug: Rocephin (cefTRIAXone) 1 grams Route: IM; Site: left gluteus; ld1 14:14 Follow up: Response: No adverse reaction ld1 Outcome: 13:58 Discharge ordered by . rn 14:14 Discharged to home ambulatory. ld1 14:14 Condition: stable 14:14 Discharge instructions given to patient, Instructed on discharge instructions, follow up and referral plans. medication usage, Demonstrated understanding of instructions, follow-up care, medications, Prescriptions given X 1. 14:14 Patient left the ED. ld1 Signatures: Conrado Lolsi blanton Eddy Singh MD MD rn Dibbern, Lauren, RN RN ld1 Corrections: (The following items were deleted from the chart) 13:26 13:25 Reassessment: Patient appears in no apparent distress at this time. Patient is ld1 alert, oriented x 3, equal unlabored respirations, skin warm/dry/pink. Patient denies pain at this time. ld1
[2021-03-28 13:59] LABS: Urine Bacteria LOADED /HPF (<20); Urine Mucus 2+ /HPF (NONE SEEN); Urine Urothelial Cells <5 /HPF (NONE SEEN)
[2021-03-28] MEDS ORDERED: CEFTRIAXONE 1000 MG/VIAL ONE (14:30)
[2021-03-28] MEDS ORDERED: WATER FOR INJ,STERILE 10 ML ONE (14:30)
[2021-03-28 15:02] VITALS: TEMP 98.7
[2021-03-28 15:03] VITALS: BP 146/77; O2SAT 95
== END 2021-03-28 14:14 | disposition home or self-care (01) ==
LOC: ER 12:09
DX: N39.0 Urinary tract infection, site not specified (principal); F17.210 Nicotine dependence, cigarettes, uncomplicated; I10 Essential (primary) hypertension; E11.9 Type 2 diabetes mellitus without complications; Z85.3 Personal history of malignant neoplasm of breast; Z85.05 Personal history of malignant neoplasm of liver; Z88.1 Allergy status to other antibiotic agents; Z88.3 Allergy status to other anti-infective agents; Z88.5 Allergy status to narcotic agent
CPT/HCPCS: 81003; 81015; 87077; 87086; 87088; 87186; 96372; 99284

== ENCOUNTER 2021-06-02 22:23 | Observation (INO) | payer OTHER ==
--- OUTSIDE RECORDS SUMMARY | 2021-06-02 22:42 | XMS REPORT | Continuity of Care Document ---
:1960 Author Organization [facility] t Address [address] [place] [address] Care Team Providers Name Role Phone Asked, Pcp Primary Care Physician Unavailable NANCY Attending Clinician Unavailable DAMIAN Attending Clinician Unavailable Ronald LIRA Attending Clinician Heber Hall DO Attending Clinician Dyllan HIDALGO Attending Clinician Judy BAUMAN Attending Clinician Mallory JANSEN Attending Clinician Unavailable ROSAS ESPARZA Attending Clinician Unavailable Sanam SIMENTAL Attending Clinician Unavailable STANISLAW Attending Clinician Unavailable Tracie LIGHT Attending Clinician Unavailable Monica ELI III Attending Clinician Unavailable Elliott FALCON, S Attending Clinician Magnolia BAUMAN S Attending Clinician Chito Barros Attending Clinician Momo BAUMAN, H Attending Clinician MARTI Attending Clinician Unavailable Lab, Fam Pob I Attending Clinician Unavailable Marti GUERRERO Attending Clinician Monica Harry NP Attending Clinician Doctor Unassigned, Name Attending Clinician Unavailable LOLIS GARCIA Attending Clinician Unavailable Jim Valverde Attending Clinician AZUL, T Attending Clinician Unavailable KOREY Attending Clinician Unavailable Singer HIDALGO Attending Clinician Attending Clinician Unavailable LENKA TAPIA Attending Clinician Unavailable Roosevelt Marquis Attending Clinician Mihai GUERRERO Attending Clinician Jaun BAUMAN Attending Clinician Tiffanie BAUMAN P Attending Clinician Lenka Tapia DO Attending Clinician Naomie Soria MD Attending Clinician Naomie SORIA Attending Clinician Unavailable Pob, Lab Main Attending Clinician Unavailable Gabe LIRA Attending Clinician Unavailable CRISTINA Attending Clinician Unavailable Jer GUERRERO Attending Clinician Cristina BAUMAN Attending Clinician LIZA BARTH Attending Clinician Unavailable JOSÉ Attending Clinician Unavailable Deshawn CAMPOS Attending Clinician Unavailable KOBE LEONARD Admitting Clinician Unavailable Judy BAUMAN Admitting Clinician YARI Admitting Clinician Unavailable CORNELIUS Admitting Clinician Unavailable ROSAS ESPARZA Admitting Clinician Unavailable Jim RDZ Admitting Clinician Unavailable Admitting Clinician Unavailable JAUN Admitting Clinician Unavailable Jaun BAUMAN Admitting Clinician Naomie SORIA Admitting Clinician Unavailable CRISTINA Admitting Clinician Unavailable Cristina BAUMAN Admitting Clinician JOSÉ Admitting Clinician Unavailable Payers Payer Name Policy Type Policy Number Effective Date Expiration Date S kristan [facility] [place] STAR [id number] 2019 PLUS 00:00:00 MEDICARE PART A [id number] 2006 \\T\\ B 00:00:00 [place] [id number] 2018 00:00:00 [facility] MEDICARE [id number] 2020 MEDICAID DUAL HMO 00:00:00 [place]ICAID [place] [id number] 2016 [facility] STAR 00:00:00 PLUS SSI MEDICARE PART A [id number] 2006 AND B 00:00:00 [employer] [id number] 2017 [facility] 00:00:00 [facility] [employer] Star [id number] [address] [facility] [facility] 00:00:[facility] Problems Condition Condition Condition Status Onset Resolution Last Treating Co mments Source Name Details Category Date Date Treatment Clinician Date Acute on Acute on Disease Active Unive rs chronic chronic 04-04 ity of systolic systolic 00:00: [place] and and 00 Medical diastolic diastolic Bran ch heart heart failure, failure, NYHA class NYHA class 3 3 HFrEF HFrEF Disease Active Univers (heart (heart 04-04 ity of failure failure 00:00: [place] with with 00 Medical reduced reduced Branch ejection ejection fraction) fraction) Nonischemi Nonischemi Disease Active U nivers c c 04-04 ity of cardiomyop cardiomyop 00:[place] athy athy 00 Medical Branch Essential Essential Disease Active Uni vers hypertensi hypertensi 04-04 it y of on on 00:00: [place] 00 Medical Branch Pancytopen Pancytopen Disease Active U nivers ia ia 04-04 ity of 00:00: [place] 00 Medical Branch Elevated Elevated Disease Active Unive rs brain brain 04-04 ity of natriureti natriureti 00:[place] c peptide c peptide 00 Medi javier (BNP) (BNP) Branch level level Acute Acute Disease Active Univers left-sided left-sided 04-03 it y of CHF CHF 00:00: [place] (congestiv (congestiv 00 Me dical e heart e heart Branch failure) failure) Acute Acute Disease Active Univers respirator respirator - it y of y failure y failure 00:00: [place] s with with 00 Medical hypoxia hypoxia Branch Obesity Obesity Disease Active Univers (BMI (BMI 5-01 ity of 30-39.9) 30-39.9) 00:00: [place] 00 Medical Branch Hematemesi Hematemesi Disease Active U nivers s s 4-29 ity of 00:00: [place] 00 Medical Branch Melena Melena Disease Active Univers 4-29 ity of 00:00: [place] 00 Medical Branch Partial Partial Disease Active Univers small small 4-28 ity of bowel bowel 00:00: [place] obstructio obstructio 00 Me dical n n Branch Hyperglyce Hyperglyce Disease Active U nasima thomas 1-18 ity of 00:00: [place] 00 Medical Branch Cirrhosis Cirrhosis Disease Active [facility]- [facility] - 00:00: t & Plan: Medical [address] [place] [address] g of this note might be different from the original. Diagnosis based on the laborator y parameter s and imaging. 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 Cirrhosis guideline s reviewed. Hepatocell Hepatocell Disease Active Last [facility] ular ular 09-03 Assessmen Lu - carcinoma carcinoma 00:00: t & Plan: M edical 00 [facility] g of this note might [...] her position. Immunity Immunity Disease Active Last [facility] S t status [facility] testing 00:00: t & Plan: Medic al 00 [facility] g of this note might be different from the original. All patients with chronic liver disease should be immunized to prevent hepatitis A and hepatitis B. Previous serology indicates immunity to HAV. Recommend HBV booster which can be provided by primary care. Hepatitis Hepatitis Disease Active [facility] St C C 09-03 [facility] - 00:00: t & Plan: Medical [address] [place] [address] g of this note might be different from the original. HCV diagnosed in 1998 s/p partial treatment with Interfero n / Ribavirin . HCV RNA December 2017 was undetecta ble. No further intervent ion necessary . Chronic Chronic Disease Active [facility] St viral viral 2- [facility] - hepatitis hepatitis 00:00: t & [...] care. Hernia of Hernia of Disease Active Last [facility] anterior anterior 2-21 Assessmen Benjamín es - abdominal abdominal 00:00: t & Plan: M edical wall wall 00 [facility] g of this note might be different from the original. She has an umbilical hernia that is being evaluated for repair. She has a 34% one year mortality based on the Sebastian surgical risk score. In addition, she is Child-Pug h Class A giving her a 10% abdominal surgery colton-oper ative mortality risk. Heart Heart Disease Active Last [facility] St murmur murmur 2-21 [facility] - 00:00: t & Plan: Medical [address] [place] [address] g of this note might be different from the original. Physical examinati on revealed an audible fixed S2 split on cardiac examinati on which may be secondary to a bundle branch block. We recommend cardiolog y consultat ion prior to procedure . Lower Lower Disease Active Last [facility] extremity extremity 2-21 Assessmen L ukes - edema edema 00:00: t & Plan: Medical [address] [place] [address] g of this note might be different from the original. Assymetri javier lower extremity edema on physical examinati on. We ordered a venous doppler of the lower extremity to assess for venous thrombosi s. Previousl y on Furosemid e 20 mg daily. We write for a refill. Cocaine Cocaine Disease Active Univers dependence dependence 3-23 it y of , , 00:00: [place] continuous continuous 00 Me dical Branch No known No known Disease Metho di active active st problems problems Hospit a l Chest pain Chest pain Problem Active [facility] - Patient [facility] Allergies, Adverse Reactions, Alerts Allergy Allergy Status Severity Reaction(s) Onset Inactive Treating Comm ents Source Name Type Date Date Clinician KETOROLA DRUG Active Med Rash 2020-0 Univers C INGREDI 5-19 ity of 00:00: [place] 00 Medical Branch Ketorola Propensi Active Rash 2020-0 Univer s c ty to 5-19 ity of adverse 00:00: [place] reaction 00 Medical s Branch ONDANSET DRUG Active ITCHING Univers SAIMA INGREDI 4-28 ity of 00:00: [place] 00 Medical Branch Ondanset Propensi Active Itching Unive rs saima ty to 4-28 ity of adverse 00:00: [place] reaction 00 Medical s Branch Erythrom Propensi Active [facility] ty to 09-03 [facility] - adverse 00:00: Medical reaction [place] Ketorola Propensi Active [facility] ty to 2 [facility] - adverse 00:00: Medical reaction [place] PROPOXYP DRUG Active Other-Cmnt Univ ers HENE 808 ity of N-ACETAM 00:00: [place] INOPHEN 00 Medical Branch TRAMADOL DRUG Active Other-Cmnt Univ ers INGREDI 8 ity of 00:00: [place] 00 Medical Branch AZITHROM DRUG Active Rash Univers YCIN INGREDI 02-18 ity of 00:00: [place] Medical Branch Propoxyp Propensi Active Other - See migraine Univers hene ty to comments 02-18 ity of N-Acetam adverse 00:00: [place] inophen reaction Medical s Branch Tramadol Propensi Active Other - See Anxious Univers ty to comments 02-18 ity of adverse 00:00: [place] reaction 00 Medical s Branch Azithrom Propensi Active Rash Univer s ycin ty to 8 ity of adverse 00:00: [place] reaction 00 Medical [facility] Propoxyp Allergy Active Migraines [facility] to 01-06 [facility] - Substanc 00:00: Patient e 00 [facility] Azithrom Allergy Active Rash [facility] to 01-06 [facility] - Substanc 00:00: Patient e 00 [facility] Tramadol Allergy Active Insomnia for C [facility] to days 01-06 [facility] - Substanc 00:00: Patient e 00 [facility] PROPOXYP DRUG Active 0 MD TIWARI 5-18 Anderso N-ACETAM 00:00: n INOPHEN 00 PROPOXYP DRUG Active 0 MD TIWARI 5-18 Anderso N-ACETAM 00:00: n INOPHEN 00 Azithrom Propensi Active Rash, Other [facility] ycin ty to (See 08-08 [facility] - adverse Comments) 00:00: Medica l reaction 00 [place] Tramadol Propensi Active Other (See 2016-[address] ty to Comments) 08-08 reaction( Luke s - adverse 00:00: s): Medical reaction 00 Insomnia Center s for daysUnabl e to sleep Demerol Adverse Active Info Not [facility] Reaction Available [facility] Darvocet Adverse Active Info Not [facility]I S t -N 100 Reaction Available [facility] ent [facility] Azithrom Adverse Active Info Not [facility] S t ycin Reaction Available [facility] Toradol Adverse Active Info Not [facility] Zithroma Adverse Active Info Not [facility]I S t x Reaction Available [facility] [place] [facility] [place] [place] Tramadol Adverse Active Info Not CHI S t HCl Reaction Available [facility] Erythrom Adverse Active Info Not CHI S t ycin Reaction Available [facility] ent [facility] Social History Social Habit Start Date Stop Date Quantity Comments Source Exposure to [facility] University of SARS-CoV-2 (event) [facility] History SDOH Taoist Alcohol Std Drinks Hospit al History SDOH Taoist Alcohol Binge Hospital History SDOH [facility] - Alcohol Comment Medical C enter History of tobacco Cigarette Smoker [facility] - use [facility] Alcohol intake 2021-04-09 2021-04-09 Ex-drinker [facility] 00:00:00 00:00:00 (finding) [facility] Tobacco use and 2019-07-31 2019-07-31 Never used Universit y of exposure 00:00:00 00:00:00 [facility] History SDOH 2019-06-08 2019-06-08 1 Taoist Alcohol Frequency 00:00:00 00:00:00 Hospita l Cigarettes smoked 2018-09-03 2018-09-[address] [facility] - current (pack per 00:00:00 00:00:00 Medical Center day) - Reported Cigarette 2018-09-03 2018-09-[address] [facility] - pack-years 00:00:00 00:00:00 [facility] Sex Ass[birth year] At [birth year] Universit y of 00:00:00 00:00:00 [facility] Smoking Status Start Date Stop Date Source Current every day smoker 2019-06-08 00:00:00 Met [facility] Medications Ordered Filled Start Stop Current Ordering Indication Dosage Frequency Signature Comments Components Source Medication Medication Date Date Medication? Clinician (SIG) Name Name mima 2020- Yes [id number] 17g Take 1 Univers e glycol 9-28 10-29 Packet by ity o f 3350 17 00:00: 04:59 mouth [place] gram powder 00 :00 daily for Med ical 30 days. Branch spironolact 2020- Yes [id number] 25mg Take 1 Univers one 25 mg 9-28 10-29 tablet by ity of tablet 00:00: 04:59 mouth [place] 00 :00 daily for Medical 30 days. Branch polyethylen 2020- Yes [id number] 17g Take 1 Univers e glycol 9-28 10-29 Packet by ity o f 3350 17 00:00: 04:59 mouth [place] gram powder 00 :00 daily for Med ical 30 days. Branch spironolact 2020- Yes [id number] 25mg Take 1 Univers one 25 mg 9-28 10-29 tablet by ity of tablet 00:00: 04:59 mouth [place] 00 :00 daily for Medical 30 days. Branch QUEtiapine 2020- No 350mg Take 350 U nivers (SEROQUEL) 04-09-27 mg by ity of 300 mg 14:59: 00:00 mouth at [place] tablet 37 :00 bedtime. Medical Branch carvediloL 2020- No 6.25mg Take 6.25 Univers 6.25 mg 04-09 09-27 mg by ity of tablet 14:59: 00:00 mouth 2 [place] 37 :00 (two) Medical times Branch daily with meals. sacubitril- 2020- No 1{tbl} Take 1 U nivers valsartan 04-09-27 tablet by ity of (ENTRESTO) 14:59: 00:00 mouth 2 [place] as 49-51 mg 37 :00 (two) Medical tablet times Branch daily. insulin 2020- No 30U inject 30 Univ ers aspart 04-09-27 Units ity of prot/insuln 14:59: 00:00 under the [place] asp 37 :00 skin 3 Medical (NOVOLOG (three) Branch MIX 70-30 times SC) daily. potassium No 40meq Take 40 Uni vers chloride 04-09- mEq by ity of (KCL-20 14:59: 00:00 mouth at [place] ORAL) 37 :00 bedtime. Medical Branch furosemide 2020- No 80mg Take 80 mg Univers (LASIX) 40 04-09 by mouth ity of mg tablet 14:59: 00:00 daily. [place] 37 :00 Medical Branch KCL 2020- No 40meq 40 mEq, Univers (KLOR-CON 04-09 Oral, ity of M20) tablet 14:45: 14:18 ONCE, 1 [place] 40 mEq 00 :00 dose, On Medical Mon Branch 04/09/21 at 0945, Routine methadone 5 2020- No 140mg Take 140 Univers mg tablet 04-09 mg by ity of 14:08: 00:00 mouth [place] 21 :00 daily. Medical Branch albuterol Yes [id number] 2{puff} Inhale 2 Univers 90 9-27 Puffs ity of mcg/actuati 00:00: every 4 [place] as on inhaler 00 (four) Medical hours as Branch needed for Wheezing or Shortness of Breath. Insulin Asp Yes inject Univ ers Prt-Insulin 9-27 under the ity of Aspart 00:00: skin. [place] (NOVOLOG 00 Medical MIX 70-30) Branch 100 unit/mL (70-30) injection albuterol Yes [id number] 2{puff} Inhale 2 Univers 90 9-27 Puffs ity of mcg/actuati 00:00: every 4 [place] as on inhaler 00 (four) Medical hours as Branch needed for Wheezing or Shortness of Breath. Insulin Asp Yes inject Univ ers Prt-Insulin 9-27 under the ity of Aspart 00:00: skin. [place] (NOVOLOG 00 Medical MIX 70-30) Branch 100 unit/mL (70-30) injection methadone 2020- Yes [id number] 140mg Take 14 Uni vers 10 mg 04-09 10-28 tablets by ity of tablet 00:00: 04:59 mouth [place] 00 :00 daily for Medical 30 days. Branch Indication s: chronic pain carvediloL 2020- Yes [id number] 12.5mg Take 1 Univers 12.5 mg 9-27 10-28 tablet by ity of tablet 00:00: 04:59 mouth 2 [place] 00 :00 (two) Medical times Branch daily with meals for 30 days. divalproex 2020- Yes [id number] 250mg Take 1 Univers ER 250 mg 9-27 10-28 tablet by ity of 24 hr 00:00: 04:59 mouth at [place] tablet 00 :00 bedtime Medical for 30 Branch days. docusate 2020- Yes [id number] 100mg Take 1 Univers 100 mg 9-27 10-28 capsule by ity of capsule 00:00: 04:59 mouth 2 [place] 00 :00 (two) Medical times Branch daily for 30 days. furosemide 2020- Yes [id number] 80mg Take 2 Univers (LASIX) 40 9-27 10-28 tablets by it y of mg tablet 00:00: 04:59 mouth [place] 00 :00 daily for Medical 30 days. Branch KCL 20 mEq 2020- Yes [id number] 40meq Take 2 Univers tablet 9-27 10-28 tablets by ity of 00:00: 04:59 mouth [place] 00 :00 daily for Medical 30 days. Branch QUEtiapine 2020- Yes [id number] 300mg Take 1 Univers 300 mg 9-27 10-28 tablet by ity of tablet 00:00: 04:59 mouth at [place] 00 :00 bedtime Medical for 30 Branch days. rifAXIMin 2020- Yes [id number] 550mg Take 1 Univers 550 mg 9-27 10-28 tablet by ity of tablet 00:00: 04:59 mouth 2 [place] 00 :00 (two) Medical times Branch daily for 30 days. sacubitriL- 2020- Yes [id number] 2{tbl} Take 2 Univers valsartan 9-27 10-28 tablets by ity of 24-26 mg 00:00: 04:59 mouth 2 [place] tablet 00 :00 (two) Medical times Branch daily for 30 days. sennosides 2020- Yes [id number] 8.6mg Take 1 Univers 8.6 mg 9-27 10-28 tablet by ity of tablet 00:00: 04:59 mouth 2 [place] 00 :00 (two) Medical times Branch daily for 30 days. methadone 2020- Yes [id number] 140mg Take 14 Uni vers 10 mg 9-27 10-28 tablets by ity of tablet 00:00: 04:59 mouth [place] 00 :00 daily for Medical 30 days. Branch Indication s: chronic pain carvediloL 2020- Yes [id number] 12.5mg Take 1 Univers 12.5 mg 9-27 10-28 tablet by ity of tablet 00:00: 04:59 mouth 2 [place] 00 :00 (two) Medical times Branch daily with meals for 30 days. divalproex 2020- Yes [id number] 250mg Take 1 Univers ER 250 mg 9-27 10-28 tablet by ity of 24 hr 00:00: 04:59 mouth at [place] tablet 00 :00 bedtime Medical for 30 Branch days. docusate 2020- Yes [id number] 100mg Take 1 Univers 100 mg 9-27 10-28 capsule by ity of capsule 00:00: 04:59 mouth 2 [place] 00 :00 (two) Medical times Branch daily for 30 days. furosemide 2020- Yes [id number] 80mg Take 2 Univers (LASIX) 40 9-27 10-28 tablets by it y of mg tablet 00:00: 04:59 mouth [place] 00 :00 daily for Medical 30 days. Branch KCL 20 mEq 2020- Yes [id number] 40meq Take 2 Univers tablet 9-27 10-28 tablets by ity of 00:00: 04:59 mouth [place] 00 :00 daily for Medical 30 days. Branch QUEtiapine 2020- Yes [id number] 300mg Take 1 Univers 300 mg 9-27 10-28 tablet by ity of tablet 00:00: 04:59 mouth at [place] 00 :00 bedtime Medical for 30 Branch days. rifAXIMin 2020- Yes [id number] 550mg Take 1 Univers 550 mg 9-27 10-28 tablet by ity of tablet 00:00: 04:59 mouth 2 [place] 00 :00 (two) Medical times Branch daily for 30 days. sacubitriL- 2020- Yes [id number] 2{tbl} Take 2 Univers valsartan 9-27 10-28 tablets by ity of 24-26 mg 00:00: 04:59 mouth 2 [place] tablet 00 :00 (two) Medical times Branch daily for 30 days. sennosides 2020- Yes [id number] 8.6mg Take 1 Univers 8.6 mg 9-27 10-28 tablet by ity of tablet 00:00: 04:59 mouth 2 [place] 00 :00 (two) Medical times Branch daily for 30 days. HYDROcodone 2020- Yes [id number] 1{tbl} Take 1 U nivers -acetaminop 9-27 10-05 tablet by it y of hen 10-325 00:00: 04:59 mouth [place] mg tablet 00 :00 every 6 Medical (six) Branch hours as needed for Pain (scale 7-10) for up to 7 days. Indication s: acute pain HYDROcodone 2020- Yes [id number] 1{tbl} Take 1 U nivers -acetaminop 9-27 10-05 tablet by it y of hen 10-325 00:00: 04:59 mouth [place] mg tablet 00 :00 every 6 Medical (six) Branch hours as needed for Pain (scale 7-10) for up to 7 days. Indication s: acute pain methadone Yes 140mg 140 mg, Univ ers (DOLOPHINE 9-25 Oral, ity of HCL) tablet 14:00: DAILY, [place] 140 mg 00 First dose Medical on Sat Branch 04/07/21 at 0900, Until Discontinu ed, Routine divalproex Yes 250mg 250 mg, Uni vers ER 9-25 Oral, QHS, ity of (DEPAKOTE 02:00: First dose [place] ER) 24 hr 00 on Fri Medical tablet 250 04/06/21 at [facility] mg 2100, Until Discontinu ed, Routine methadone 2020- No 20mg 20 mg, Unive rs (DOLOPHINE 04-06-24 Oral, ity of HCL) tablet 15:30: 16:56 ONCE, 1 [place] 20 mg 00 :00 dose, On Medical Fri Branch 04/06/21 at 1030, Routine methadone 2020- No 120mg 120 mg, Uni vers (DOLOPHINE 04-05 Oral, ity of HCL) tablet 22:00: 15:25 DAILY, [place] 120 mg 00 :02 First dose Medical on [facility] Branch 04/05/21 at 1700, Until Discontinu ed, Routine polyethylen Yes 17g 17 g, Unive rs e glycol 04-05 Oral, ity of 3350 powder 21:45: DAILY, [place] 17 g 00 First dose Medical on [facility] Branch 04/05/21 at 1645, Until Discontinu ed, Routine polyethylen 2020- No 17g 17 g, Univ ers e glycol 04-05 Oral, ity of 3350 powder 21:45: 22:43 DAILY, 3 [place] 17 g 00 :31 doses, Medical First dose Branch (after last reorder) on [facility] 04/05/21 at 1645, Last dose on [facility] 04/07/21 at 0900, Routine LACTULOSE 2020- No 30mg Take 30 mg U nivers ORAL 04-05 by mouth 2 ity of 16:44: 00:00 (two) [place] 19 :00 times Medical daily. Branch HYDROcodone 2020- No 1{tbl} Take 1 U nivers -acetaminop 04-05 tablet by it y of hen 10-325 16:44: 00:00 mouth [place] mg tablet 19 :00 every 4 Medical (four) Branch hours as needed. methadone 5 2020- No 10mg Take 10 mg Univers mg tablet 04-05 by mouth 3 ity of 16:44: 00:00 (three) [place] 19 :00 times Medical daily. Branch magnesium 2020- No 4g 4 g, IV Univ ers sulfate in 04-05 Piggyback, it y of water 4 14:30: 14:04 ONCE, 1 [place] gram/50 mL 00 :00 dose, On Medic al (8 %) IV [facility] Branch Piggyback 4 04/05/21 at g 0930, Routine KCL 2020- No 40meq 40 mEq, Univers (KLOR-CON 04-05 Oral, ity of M20) tablet 14:30: 14:03 ONCE, 1 [place] 40 mEq 00 :00 dose, On Medical [facility] Branch 04/05/21 at 0930, Routine sacubitriL- Yes 2{tbl} 2 tablet, [facility] valsartan 04-04 Oral, BID, ity of (ENTRESTO) 14:45: First dose [place] 24-26 mg 00 on Fri Medical tablet 2 04/04/21 at [facility] h tablet 0945, Until Discontinu ed, Routine
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
Reas on for Anti-Infec tive: Empiric Therapy for Suspected Infection< br>Empiric Therapy Site: Urine
D uration of therapy: 7 days carvediloL Yes 12.5mg 12.5 mg, U nivers (COREG) 04-04 Oral, BID ity of tablet 12.5 04:00: MEALS, [place] mg 00 First dose Medical on [facility] 04/03/21 at 2300, Until Discontinu ed, Routine spironolact Yes 25mg 25 mg, Univ ers one 04-04 Oral, ity of (ALDACTONE) 04:00: DAILY, [place] tablet 25 00 First dose Medi javier mg on [facility] 04/03/21 at 2300, Until Discontinu ed, Routine QUEtiapine Yes 300mg 300 mg, Uni vers (SEROQUEL) 04-04 Oral, QHS, ity of tablet 300 04:00: First dose [place] mg 00 on [facility] 04/03/21 at Branch 2300, Until Discontinu ed, Routine divalproex No 250mg 250 mg, Un ale ER 04-04 Oral, QHS, ity of (DEPAKOTE 04:00: 22:03 First dose [place] ER) 24 hr 00 :12 on Fri Medical tablet 250 04/03/21 at [facility] mg 2300, Until Discontinu ed, Routine insulin 0 2020- No 30U 30 Units, [facility] ers glargine 04-04 Subcutaneo ity of (LANTUS 04:00: 13:20 us, BID, [place] U-100) 00 :25 First dose Medical injection on Fri Branch 30 Units 04/03/21 at 2300, Until Discontinu ed, Routine rifAXIMin Yes 550mg 550 mg, Univ ers (XIFAXAN) 04-04 Oral, BID, ity of tablet 550 03:45: First dose [place] mg 00 on Fri04/03/21 at Branch 2245, Until Discontinu ed, Routine
Reason for Anti-Infec tive: Empiric Therapy for Suspected Infection< br>Empiric Therapy Site: Abdominal< br>Duratio n of therapy: 7 days sennosides Yes 8.6mg 8.6 mg, Uni vers (SENOKOT) 04-04 Oral, BID, ity of tablet 8.6 03:45: First dose [place] mg 00 on Fri04/03/21 at Branch 2245, Until Discontinu ed, Routine docusate 0 Yes 100mg 100 [facility], [facility]04 Oral, BID, ity o f capsule 100 03:45: First dose [place] mg 00 on 04/03/21 at Branch 2245, Until Discontinu ed, Routine furosemide 0 Yes 40mg 40 mg, IV Un ale (LASIX) 04-04 Push, ity of injection 03:45: Q12H, [place] 40 mg 00 First dose Medical (after Branch last reorder) on Fri04/03/21 at 2245, Until Discontinu ed, Routine polyethylen 0 2020- No 17g 17 g, [facility] ers e glycol 04-04 Oral, ity of 3350 powder 03:45: 16:59 QNOON, 3 [place] 17 g 00 :00 doses, Medical First dose Branch on 04/03/21 at 2245, Last dose on [place] 04/05/21 at 1200, Routine lactulose 2020- No 30mL 30 mL, Unive rs (CEPHULAC) 04-04 Oral, BID, it y of solution 30 03:45: 21:35 First dose [place] mL 00 :16 on e Medical 04/03/21 at Branch 2245, Until Discontinu ed, Routine furosemide 2020- No 40mg 40 mg, IV U nivers (LASIX) 04-03 Push, ity of injection 22:30: 22:07 ONCE, 1 [place] 40 mg 00 :00 dose, On Medical Tu Branch 04/03/21 at 1730, ESSIE insulin 2019-0 2020- No 5U 5 Units, Unive rs regular 02-07 Subcutaneo ity o f human 09:15: 08:06 us, ONCE, [place] (HUMULIN R) 00 :00 1 dose, Medic al injection 5 [facility] Branch Units 02/08/20 at 0415, Routine insulin 2019-0 2020- No 15U 15 Units, Univ ers regular 02-07 Slow IV ity of human 07:15: 06:17 Push, [place] (HUMULIN R) 00 :00 ONCE, 1 Medic al injection dose, [facility] Bran h 15 Units 02/08/20 at 0215, Routine codeine-gua 2019-0 2020- No 10mL 10 mL, Uni vers ifenesin 02-07 Oral, ity of (ROBITUSSIN 05:30: 04:33 ONCE, 1 [place] 10-100 00 :00 dose, Tu Medi javier mg/5 mL 02/08/20 at Branch solution 10 0030, ESSIE mL dextrometho 2020-0 Yes [id number] 10mL Take 10 mL Univers han-guaif 02-07 by mouth ity of enesin 00:00: every 4 [place] 15-100 mg/5 00 (four) Medica l mL syrup hours as Branch needed for Cough. dextrometho 2020-0 Yes [id number] 10mL Take 10 mL Univers rphan-guaif 02-07 [id number] by mouth i ty of enesin 00:00: every 4 [place] 15-100 mg/5 00 (four) Medica l mL syrup hours as Branch needed for Cough. dextrometho 2019-2020- No [id number] 10mL Take 10 mL Univers lilia 02-07 [id number] by mouth ity of enesin 00:00: 00:00 every 4 [place] 15-100 mg/5 00 :00 (four) Medica l mL syrup hours as Branch needed for Cough. insulin 2019- No 10U 10 Units, Univ ers regular 01-29 Subcutaneo ity o f human 23:30: 22:30 us, ONCE, [place] (HUMULIN R) 00 :00 1 dose, Medic al injection Sun Branch 10 Units 01/30/20 at 1830, STAT insulin 2020-0 Yes 30U inject 30 Unive rs aspart 7-19 Units ity of prot/insuln 21:44: under the [place] asp 41 skin 3 Medical (NOVOLOG (three) Branch MIX 70-30 times SC) daily. HYDROcodone 2020-0 Yes 1{tbl} Take 1 Un ale -acetaminop 7-19 tablet by ity of hen 10-325 21:44: mouth [place] mg tablet 41 every 4 Medical (four) Branch hours as needed. methadone 5 2020-0 Yes 10mg Take 10 mg Univers mg tablet 7-19 by mouth 3 ity of 21:44: (three) [place] 41 times Medical daily. Branch insulin 2020-0 Yes 30U inject 30 Unive rs aspart 7-19 Units ity of prot/insuln 21:44: under the [place] asp 41 skin 3 Medical (NOVOLOG (three) Branch MIX 70-30 times SC) daily. HYDROcodone 2020-0 Yes 1{tbl} Take 1 Un ale -acetaminop 7-19 tablet by ity of hen 10-325 21:44: mouth [place] mg tablet 41 every 4 Medical (four) Branch hours as needed. methadone 5 2020-0 Yes 10mg Take 10 mg Univers mg tablet 7-19 by mouth 3 ity of 21:44: (three) [place] 41 times Medical daily. Branch insulin 2020-0 Yes 30U inject 30 Unive rs aspart 7-19 Units ity of prot/insuln 21:44: under the [place] asp 41 skin 3 Medical (NOVOLOG (three) Branch MIX 70-30 times SC) daily. HYDROcodone 2020-0 Yes 1{tbl} Take 1 Un ale -acetaminop 7-19 tablet by ity of hen 10-325 21:44: mouth [place] mg tablet 41 every 4 Medical (four) Branch hours as needed. methadone 5 2020-0 Yes 10mg Take 10 mg Univers mg tablet 7-19 by mouth 3 ity of 21:44: (three) [place] 41 times Medical daily. Branch insulin 2020-0 Yes 30U inject 30 Unive rs aspart 7-19 Units ity of prot/insuln 21:44: under the [place] asp 41 skin 3 Medical (NOVOLOG (three) Branch MIX 70-30 times SC) daily. HYDROcodone 2020-0 Yes 1{tbl} Take 1 Un ale -acetaminop 7-19 tablet by ity of hen 10-325 21:44: mouth [place] mg tablet 41 every 4 Medical (four) Branch hours as needed. methadone 5 2020-0 Yes 10mg Take 10 mg Univers mg tablet 7-19 by mouth 3 ity of 21:44: (three) [place] 41 times Medical daily. Branch insulin 2020-0 Yes 30U inject 30 Unive rs aspart 7-19 Units ity of prot/insuln 21:44: under the [place] asp 41 skin 3 Medical (NOVOLOG (three) Branch MIX 70-30 times SC) daily. HYDROcodone 2020-0 Yes 1{tbl} Take 1 Un ale -acetaminop 7-19 tablet by ity of hen 10-325 21:44: mouth [place] mg tablet 41 every 4 Medical (four) Branch hours as needed. methadone 5 2020-0 Yes 10mg Take 10 mg Univers mg tablet 7-19 by mouth 3 ity of 21:44: (three) [place] 41 times Medical daily. Branch insulin 2020-0 Yes 30U inject 30 Unive rs aspart 7-19 Units ity of prot/insuln 21:44: under the [place] asp 41 skin 3 Medical (NOVOLOG (three) Branch MIX 70-30 times SC) daily. HYDROcodone 2020-0 Yes 1{tbl} Take 1 Un ale -acetaminop 7-19 tablet by ity of hen 10-325 21:44: mouth [place] mg tablet 41 every 4 Medical (four) Branch hours as needed. methadone 5 2020-0 Yes 10mg Take 10 mg Univers mg tablet 7-19 by mouth 3 ity of 21:44: (three) [place] 41 times Medical daily. Branch albuterol 2020-0 Yes [id number] 2{puff} Inhale 2 Univers 90 7-19 Puffs ity of mcg/actuati 00:00: every 4 [place] on inhaler 00 (four) Medical hours as Branch needed for Wheezing or Shortness of Breath. Zinc 50 mg 2020-0 Yes [id number] 100mg Take 100 Univers Tab 7-19 mg by ity of 00:00: mouth at [place] 00 bedtime. Medical Branch benzonatate 2020-0 Yes [id number] 100mg Take 1 Univers 100 mg 7-19 capsule by ity of capsule 00:00: mouth 3 [place] 00 (three) Medical times Branch daily as needed for Cough. albuterol 2020-0 Yes [id number] 2{puff} Inhale 2 Univers 90 7-19 Puffs ity of mcg/actuati 00:00: every 4 [place] on inhaler 00 (four) Medical hours as Branch needed for Wheezing or Shortness of Breath. Zinc 50 mg 2020-0 Yes [id number] 100mg Take 100 Univers Tab 7-19 mg by ity of 00:00: mouth at [place] 00 bedtime. Medical Branch benzonatate 2020-0 Yes [id number] 100mg Take 1 Univers 100 mg 7-19 capsule by ity of capsule 00:00: mouth 3 [place] 00 (three) Medical times Branch daily as needed for Cough. albuterol 2020-0 Yes [id number] 2{puff} Inhale 2 Univers 90 7-19 Puffs ity of mcg/actuati 00:00: every 4 [place] on inhaler 00 (four) Medical hours as Branch needed for Wheezing or Shortness of Breath. Zinc 50 mg 2020-0 Yes [id number] 100mg Take 100 Univers Tab 7-19 mg by ity of 00:00: mouth at [place] 00 bedtime. Medical Branch benzonatate 2020-0 Yes [id number] 100mg Take 1 Univers 100 mg 7-19 capsule by ity of capsule 00:00: mouth 3 [place] 00 (three) Medical times Branch daily as needed for Cough. albuterol 2020-0 Yes [id number] 2{puff} Inhale 2 Univers 90 7-19 Puffs ity of mcg/actuati 00:00: every 4 [place] on inhaler 00 (four) Medical hours as Branch needed for Wheezing or Shortness of Breath. Zinc 50 mg 2020-0 Yes [id number] 100mg Take 100 Univers Tab 7-19 mg by ity of 00:00: mouth at [place] 00 bedtime. Medical Branch benzonatate 2020-0 Yes [id number] 100mg Take 1 Univers 100 mg 7-19 capsule by ity of capsule 00:00: mouth 3 [place] 00 (three) Medical times Branch daily as needed for Cough. albuterol 2020-0 Yes [id number] 2{puff} Inhale 2 Univers 90 7-19 Puffs ity of mcg/actuati 00:00: every 4 [place] on inhaler 00 (four) Medical hours as Branch needed for Wheezing or Shortness of Breath. Zinc 50 mg 2020-0 Yes [id number] 100mg Take 100 Univers Tab 7-19 mg by ity of 00:00: mouth at [place] [address] bedtime. Medical Branch benzonatate 2020-0 Yes [id number] 100mg Take 1 Univers 100 mg 7-19 capsule by ity of capsule 00:00: mouth 3 [place] (three) Medical times Branch daily as needed for Cough. albuterol 2020-0 Yes [id number] 2{puff} Inhale 2 Univers 90 7-19 Puffs ity of mcg/actuati 00:00: every 4 [place] on inhaler 00 (four) Medical hours as Branch needed for Wheezing or Shortness of Breath. Zinc 50 mg 2020-0 Yes [id number] 100mg Take 100 Univers Tab 7-19 mg by ity of 00:00: mouth at [place] [address] bedtime. Medical Branch benzonatate 2020-0 Yes [id number] 100mg Take 1 Univers 100 mg 7-19 capsule by ity of capsule 00:00: mouth 3 [place] (three) Medical times Branch daily as needed for Cough. albuterol 2020-0 2020- No [id number] 2{puff} Inhale 2 Univers 90 7-19 09-27 Puffs ity of mcg/actuati 00:00: 00:00 every 4 [place] on inhaler 00 :00 (four) Medical hours as Branch needed for Wheezing or Shortness of Breath. Zinc 50 mg 2020-0 2020- No [id number] 100mg Take 100 Univers Tab 7-19 09-23 mg by ity of 00:00: 00:00 mouth at [place] 00 :00 bedtime. Medical Branch benzonatate 2020-0 2020- No [id number] 100mg Take 1 Univers 100 mg 01-29 capsule by ity of capsule 00:00: 00:00 mouth 3 [place] 00 :00 (three) Medical times Branch daily as needed for Cough. vitamin C 2019-0 2019- No [id number] 1000mg Take 1 Univers with janette 01-2930 tablet by ity of hips 00:00: 04:59 mouth 3 [place] (VITAMIN C) 00 :00 (three) Medic al 1,000 mg times Branch tablet daily for 10 days. Cholecalcif 2019-0 2019- No [id number] 2000U Take 1 Univers evaristo, 01-29-30 tablet by ity of Vitamin D3, 00:00: 04:59 [place] (VITAMIN 00 :00 daily for Medica l D3) 2,000 10 days. Branch unit tablet foLIC acid 2019-2019- No [id number] 1mg Take 1 Univers 1 mg tablet 01-2930 tablet by it y of 00:00: 04:59 mouth [place] 00 :00 daily for Medical 10 days. Branch aspirin 81 2019-0 2020- No [id number] 81mg Take 1 Univers mg chewable 01-29-30 tablet by it y of tablet 00:00: 04:59 mouth [place] 00 :00 daily for Medical 10 days. Branch vitamin C 2019-0 2019- No [id number] 1000mg Take 1 Univers with janette 01-29 tablet by ity of hips 00:00: 04:59 mouth 3 [place] (VITAMIN C) 00 :00 (three) Medic al 1,000 mg times Branch tablet daily for 10 days. Cholecalcif 2020-0 2020- No [id number] 2000U Take 1 Univers evaristo, 01-29-30 tablet by ity of Vitamin D3, 00:00: 04:59 mouth [place] (VITAMIN 00 :00 daily for Medica l D3) 2,000 10 days. Branch unit tablet foLIC acid 2020-0 2019- No [id number] 1mg Take 1 Univers 1 mg tablet 01-29-30 tablet by it y of 00:00: 04:59 mouth [place] 00 :00 daily for Medical 10 days. Branch aspirin 81 2020-0 2020- No [id number] 81mg Take 1 Univers mg chewable 7-29 01-30 tablet by it y of tablet 00:00: 04:59 mouth [place] 00 :00 daily for Medical 10 days. [place] vitamin C 2020-0 2020- No [id number] 1000mg Take 1 Univers with janette 7-29 01-30 tablet by ity of hips 00:00: 04:59 mouth 3 [place] (VITAMIN C) 00 :00 (three) Medic al 1,000 mg times Branch tablet daily for 10 days. Cholecalcif 2020-0 2020- No [id number] 2000U Take 1 Univers evaristo, 7-29 01-30 tablet by ity of Vitamin D3, 00:00: 04:59 mouth [place] (VITAMIN 00 :00 daily for Medica l D3) 2,000 10 days. Branch unit tablet foLIC acid 2019- 2020- No [id number] 1mg Take 1 Univers 1 mg tablet 01-29-30 tablet by it y of 00:00: 04:59 mouth [place] 00 :00 daily for Medical 10 days. [place] aspirin 81 2019- 2020- No [id number] 81mg Take 1 Univers mg chewable 7-29 01-30 tablet by it y of tablet 00:00: 04:59 mouth [place] 00 :00 daily for Medical 10 days. [place] vitamin C 2020-0 2020- No [id number] 1000mg Take 1 Univers with janette -29 01-30 tablet by ity of hips 00:00: 04:59 mouth 3 [place] (VITAMIN C) 00 :00 (three) Medic al 1,000 mg times Branch tablet daily for 10 days. Cholecalcif 2019-0 2020- No [id number] 2000U Take 1 Univers evaristo, 7-30 tablet by ity of Vitamin D3, 00:00: 04:59 mouth [place] (VITAMIN 00 :00 daily for Medica l D3) 2,000 10 days. Branch unit tablet foLIC acid 2020-2019- No [id number] 1mg Take 1 Univers 1 mg tablet 7-29 01-30 tablet by it y of 00:00: 04:59 mouth [place] 00 :00 daily for Medical 10 days. [place] aspirin 81 2020-0 2020- No [id number] 81mg Take 1 Univers mg chewable 7-29 01-30 tablet by it y of tablet 00:00: 04:59 mouth [place] 00 :00 daily for Medical 10 days. [place] vitamin C 2019-0 2020- No [id number] 1000mg Take 1 Univers with janette 01-29 tablet by ity of hips 00:00: 04:59 mouth 3 [place] (VITAMIN C) 00 :00 (three) Medic al 1,000 mg times Branch tablet daily for 10 days. Cholecalcif 2019-0 2020- No [id number] 2000U Take 1 Univers evaristo, 01-29 tablet by ity of Vitamin D3, 00:00: 04:59 mouth [place] (VITAMIN 00 :00 daily for Medica l D3) 2,000 10 days. [place] unit tablet foLIC acid 2019- 2020- No [id number] 1mg Take 1 Univers 1 mg tablet 01-29 tablet by it y of 00:00: 04:59 mouth [place] 00 :00 daily for Medical 10 days. [place] aspirin 81 2019-0 2020- No [id number] 81mg Take 1 Univers mg chewable 01-29 tablet by it y of tablet 00:00: 04:59 mouth [place] 00 :00 daily for Medical 10 days. [place] FENTanyl PF 2019-0 2020- No 50ug 50 mcg, Un ale (SUBLIMAZE 12-15 Slow IV ity o f (PF)) 04:45: 03:38 Push, [place] injection 00 :00 ONCE, 1 Medical 50 mcg dose, [facility] 12/15/19 at 2345, STAT iohexol 2019-0 2020- No 120mL 120 mL, Unive rs (OMNIPAQUE 12-15 Intravenou it y of 350 02:00: 03:45 s, ONCE, 1 [place] BULK-150 00 :00 dose, [facility] Medica l mL) 12/15/19 at [place] injection 2100, 120 mL Routine iohexol 2019-0 2020- No 120mL 120 mL, Unive rs (OMNIPAQUE 11-29-19 Intravenou it y of 350 18:55: 18:55 s, ONCE, 1 [place] BULK-150 00 :00 dose, Tue Medica l mL) 11/30/19 at [place] injection 1415, 120 mL Routine vancomycin 2019-0 Yes [id number] 500mg Take 2 Univers 250 mg 5-07 capsules ity of capsule 00:00: by mouth 4 [place] 00 (four) Medical times Branch daily. vancomycin 2020-0 Yes [id number] 500mg Take 2 Univers 250 mg 5-07 capsules ity of capsule 00:00: by mouth 4 [place] 00 (four) Medical times Branch daily. vancomycin 2020-0 Yes [id number] 500mg Take 2 Univers 250 mg 5-07 capsules ity of capsule 00:00: by mouth 4 [place] 00 (four) Medical times Branch daily. vancomycin 2020-0 Yes [id number] 500mg Take 2 Univers 250 mg 5-07 capsules ity of capsule 00:00: by mouth 4 [place] 00 (four) Medical times Branch daily. vancomycin 2020-0 Yes [id number] 500mg Take 2 Univers 250 mg 5-07 capsules ity of capsule 00:00: by mouth 4 [place] 00 (four) Medical times Branch daily. vancomycin 2020-0 Yes [id number] 500mg Take 2 [facility] 250 mg 5-07 capsules ity of capsule 00:00: by mouth 4 [place] 00 (four) Medical times Branch daily. vancomycin 2020-0 Yes [id number] 500mg Take 2 [facility] 250 mg 5-07 capsules ity of capsule 00:00: by mouth 4 [place] 00 (four) Medical times Branch daily. vancomycin 2020-0 Yes [id number] 500mg Take 2 [facility] 250 mg 5-07 capsules ity of capsule 00:00: by mouth 4 [place] 00 (four) Medical times Branch daily. vancomycin 2020-0 Yes [id number] 500mg Take 2 Univers 250 mg 5-07 capsules ity of capsule 00:00: by mouth 4 [place] 00 (four) Medical times Branch daily. vancomycin 2020-0 202- No [id number] 500mg Take 2 Univers 250 mg 5-07 09-23 capsules ity of capsule 00:00: 00:00 by mouth 4 [place] 00 :00 (four) Medical times Branch daily. insulin 2020-0 Yes .25U/kg 21 Units Uni vers glargine 5-06 /d (0.25 ity of (LANTUS 02:00: Units/kg/d [place] U-100) 00 ay ?84 Medical injection kg), Branch 21 Units Subcutaneo us, QHS, First dose on Fri11/16/19 at 2100, Until Discontinu ed, Routine QUEtiapine 2020-0 Yes 350mg Take 350 Un ale (SEROQUEL) 5-05 mg by ity of 300 mg 19:19: mouth at [place] tablet 34 bedtime. Medical Branch carvediloL 2020-0 Yes 6.25mg Take 6.25 Univers 6.25 mg 5-05 mg by ity of tablet 19:19: mouth 2 [place] 34 (two) Medical times Branch daily with meals. sacubitril- 2020-0 Yes 1{tbl} Take 1 Un ale valsartan 5-05 tablet by ity o f (ENTRESTO) 19:19: mouth 2 [place] 49-51 mg 34 (two) Medical tablet times Branch daily. insulin 2020-0 Yes 30U inject 30 Unive rs aspart 5-05 Units ity of prot/insuln 19:19: under the [place] asp 34 skin 3 Medical (NOVOLOG (three) Branch MIX 70-30 times SC) daily. potassium 2020-0 Yes 40meq Take 40 Univ ers chloride 5-05 mEq by ity of (KCL-20 19:19: mouth at [place] ORAL) 34 bedtime. Medical Branch LACTULOSE 2020-0 Yes 30mg Take 30 mg Un ale ORAL 5-05 by mouth 2 ity of 19:19: (two) [place] 34 times Medical daily. Branch furosemide 2020-0 Yes 80mg Take 80 mg U nivers (LASIX) 40 5-05 by mouth ity o f mg tablet 19:19: daily. [place] [address] Medical Branch HYDROcodone 2020-0 Yes 1{tbl} Take 1 Un ale -acetaminop 5-05 tablet by ity of hen 10-325 19:19: mouth [place] mg tablet 34 every 4 Medical (four) Branch hours as needed. methadone 5 2020-0 Yes 10mg Take 10 mg Univers mg tablet 5-05 by mouth 3 ity of 19:19: (three) [place] 34 times Medical daily. Branch QUEtiapine 2020-0 Yes 350mg Take 350 Un ale (SEROQUEL) 5-05 mg by ity of 300 mg 19:19: mouth at [place] tablet 34 bedtime. Medical Branch carvediloL 2020-0 Yes 6.25mg Take 6.25 Univers 6.25 mg 5-05 mg by ity of tablet 19:19: mouth 2 [place] 34 (two) Medical times Branch daily with meals. sacubitril- 2020-0 Yes 1{tbl} Take 1 Un ale valsartan 5-05 tablet by ity o f (ENTRESTO) 19:19: mouth 2 [place] 49-51 mg 34 (two) Medical tablet times Branch daily. insulin 2020-0 Yes 30U inject 30 Unive rs aspart 5-05 Units ity of prot/insuln 19:19: under the [place] asp 34 skin 3 Medical (NOVOLOG (three) Branch MIX 70-30 times SC) daily. potassium 2020-0 Yes 40meq Take 40 Univ ers chloride 5-05 mEq by ity of (KCL-20 19:19: mouth at [place] ORAL) 34 bedtime. Medical Branch LACTULOSE 2020-0 Yes 30mg Take 30 mg Un ale ORAL 5-05 by mouth 2 ity of 19:19: (two) [place] 34 times Medical daily. Branch furosemide 2020-0 Yes 80mg Take 80 mg U nivers (LASIX) 40 5-05 by mouth ity o f mg tablet 19:19: daily. [place] [address] Medical Branch HYDROcodone 2020-0 Yes 1{tbl} Take 1 Un ale -acetaminop 5-05 tablet by ity of hen 10-325 19:19: mouth [place] mg tablet 34 every 4 Medical (four) Branch hours as needed. methadone 5 2020-0 Yes 10mg Take 10 mg Univers mg tablet 5-05 by mouth 3 ity of 19:19: (three) [place] [address] times Medical daily. Branch QUEtiapine 2020-0 Yes 350mg Take 350 Un ale (SEROQUEL) 5-05 mg by ity of 300 mg 19:19: mouth at [place] tablet 34 bedtime. Medical Branch carvediloL 2020-0 Yes 6.25mg Take 6.25 Univers 6.25 mg 5-05 mg by ity of tablet 19:19: mouth 2 [place] 34 (two) Medical times Branch daily with meals. sacubitril- 2020-0 Yes 1{tbl} Take 1 Un ale valsartan 5-05 tablet by ity o f (ENTRESTO) 19:19: mouth 2 [place] 49-51 mg 34 (two) Medical tablet times Branch daily. insulin 2020-0 Yes 30U inject 30 Unive rs aspart 5-05 Units ity of prot/insuln 19:19: under the [place] asp 34 skin 3 Medical (NOVOLOG (three) Branch MIX 70-30 times SC) daily. potassium 2020-0 Yes 40meq Take 40 Univ ers chloride 5-05 mEq by ity of (KCL-20 19:19: mouth at [place] ORAL) 34 bedtime. Medical Branch LACTULOSE 2020-0 Yes 30mg Take 30 mg Un ale ORAL 5-05 by mouth 2 ity of 19:19: (two) [place] 34 times Medical daily. Branch furosemide 2020-0 Yes 80mg Take 80 mg U nivers (LASIX) 40 5-05 by mouth ity o f mg tablet 19:19: daily. [place] [address] Medical Branch HYDROcodone 2020-0 Yes 1{tbl} Take 1 Un ale -acetaminop 5-05 tablet by ity of hen 10-325 19:19: mouth [place] mg tablet 34 every 4 Medical (four) Branch hours as needed. methadone 5 2020-0 Yes 10mg Take 10 mg Univers mg tablet 5-05 by mouth 3 ity of 19:19: (three) [place] 34 times Medical daily. Branch QUEtiapine 2020-0 Yes 350mg Take 350 Un ale (SEROQUEL) 5-05 mg by ity of 300 mg 19:19: mouth at [place] tablet 34 bedtime. Medical Branch carvediloL 2020-0 Yes 6.25mg Take 6.25 Univers 6.25 mg 5-05 mg by ity of tablet 19:19: mouth 2 [place] 34 (two) Medical times Branch daily with meals. sacubitril- 2020-0 Yes 1{tbl} Take 1 Un ale valsartan 5-05 tablet by ity o f (ENTRESTO) 19:19: mouth 2 [place] 49-51 mg 34 (two) Medical tablet times Branch daily. insulin 2020-0 Yes 30U inject 30 Unive rs aspart 5-05 Units ity of prot/insuln 19:19: under the [place] asp 34 skin 3 Medical (NOVOLOG (three) Branch MIX 70-30 times SC) daily. potassium 2020-0 Yes 40meq Take 40 Univ ers chloride 5-05 mEq by ity of (KCL-20 19:19: mouth at [place] ORAL) 34 bedtime. Medical Branch LACTULOSE 2020-0 Yes 30mg Take 30 mg Un ale ORAL 5-05 by mouth 2 ity of 19:19: (two) [place] [address] times Medical daily. Branch furosemide 2020-0 Yes 80mg Take 80 mg U nivers (LASIX) 40 5-05 by mouth ity o f mg tablet 19:19: daily. [place] [address] Medical Branch HYDROcodone 2020-0 Yes 1{tbl} Take 1 Un ale -acetaminop 5-05 tablet by ity of hen 10-325 19:19: mouth [place] mg tablet 34 every 4 Medical (four) Branch hours as needed. methadone 5 2020-0 Yes 10mg Take 10 mg Univers mg tablet 5-05 by mouth 3 ity of 19:19: (three) [place] 34 times Medical daily. Branch QUEtiapine 2020-0 Yes 350mg Take 350 Un ale (SEROQUEL) 5-05 mg by ity of 300 mg 19:19: mouth at [place] tablet 34 bedtime. Medical Branch carvediloL 2020-0 Yes 6.25mg Take 6.25 Univers 6.25 mg 5-05 mg by ity of tablet 19:19: mouth 2 [place] [address] (two) Medical times Branch daily with meals. sacubitril- 2020-0 Yes 1{tbl} Take 1 Un ale valsartan 5-05 tablet by ity o f (ENTRESTO) 19:19: mouth 2 [place] 49-51 mg 34 (two) Medical tablet times Branch daily. insulin 2020-0 Yes 30U inject 30 Unive rs aspart 5-05 Units ity of prot/insuln 19:19: under the [place] asp 34 skin 3 Medical (NOVOLOG (three) Branch MIX 70-30 times SC) daily. potassium 2020-0 Yes 40meq Take 40 Univ ers chloride 5-05 mEq by ity of (KCL-20 19:19: mouth at [place] ORAL) 34 bedtime. Medical Branch LACTULOSE 2020-0 Yes 30mg Take 30 mg Un ale ORAL 5-05 by mouth 2 ity of 19:19: (two) [place] [address] times Medical daily. Branch furosemide 2020-0 Yes 80mg Take 80 mg U nivers (LASIX) 40 5-05 by mouth ity o f mg tablet 19:19: daily. [place] [address] Medical Branch HYDROcodone 2020-0 Yes 1{tbl} Take 1 Un ale -acetaminop 5-05 tablet by ity of hen 10-325 19:19: mouth [place] mg tablet 34 every 4 Medical (four) Branch hours as needed. methadone 5 2020-0 Yes 10mg Take 10 mg Univers mg tablet 5-05 by mouth 3 ity of 19:19: (three) [place] 34 times Medical daily. Branch QUEtiapine 2020-0 Yes 350mg Take 350 Un ale (SEROQUEL) 5-05 mg by ity of 300 mg 19:19: mouth at [place] tablet 34 bedtime. Medical Branch carvediloL 2020-0 Yes 6.25mg Take 6.25 Univers 6.25 mg 5-05 mg by ity of tablet 19:19: mouth 2 [place] 34 (two) Medical times Branch daily with meals. sacubitril- 2020-0 Yes 1{tbl} Take 1 Un ale valsartan 5-05 tablet by ity o f (ENTRESTO) 19:19: mouth 2 [place] 49-51 mg 34 (two) Medical tablet times Branch daily. insulin 2020-0 Yes 30U inject 30 Unive rs aspart 5-05 Units ity of prot/insuln 19:19: under the [place] asp 34 skin 3 Medical (NOVOLOG (three) Branch MIX 70-30 times SC) daily. potassium 2020-0 Yes 40meq Take 40 Univ ers chloride 5-05 mEq by ity of (KCL-20 19:19: mouth at [place] ORAL) 34 bedtime. Medical Branch LACTULOSE 2020-0 Yes 30mg Take 30 mg Un ale ORAL 5-05 by mouth 2 ity of 19:19: (two) [place] 34 times Medical daily. Branch furosemide 2020-0 Yes 80mg Take 80 mg U nivers (LASIX) 40 5-05 by mouth ity o f mg tablet 19:19: daily. [place] [address] Medical Branch HYDROcodone 2020-0 Yes 1{tbl} Take 1 Un ale -acetaminop 5-05 tablet by ity of hen 10-325 19:19: mouth [place] mg tablet 34 every 4 Medical (four) Branch hours as needed. methadone 5 2020-0 Yes 10mg Take 10 mg Univers mg tablet 5-05 by mouth 3 ity of 19:19: (three) [place] 34 times Medical daily. Branch QUEtiapine 2020-0 Yes 350mg Take 350 Un ale (SEROQUEL) 5-05 mg by ity of 300 mg 19:19: mouth at [place] tablet 34 bedtime. Medical Branch carvediloL 2020-0 Yes 6.25mg Take 6.25 Univers 6.25 mg 5-05 mg by ity of tablet 19:19: mouth 2 [place] 34 (two) Medical times Branch daily with meals. sacubitril- 2020-0 Yes 1{tbl} Take 1 Un ale valsartan 5-05 tablet by ity o f (ENTRESTO) 19:19: mouth 2 [place] 49-51 mg 34 (two) Medical tablet times Branch daily. potassium 2020-0 Yes 40meq Take 40 Univ ers chloride 5-05 mEq by ity of (KCL-20 19:19: mouth at [place] ORAL) 34 bedtime. Medical Branch LACTULOSE 2020-0 Yes 30mg Take 30 mg Un ale ORAL 5-05 by mouth 2 ity of 19:19: (two) [place] 34 times Medical daily. Branch furosemide 2020-0 Yes 80mg Take 80 mg U nivers (LASIX) 40 5-05 by mouth ity o f mg tablet 19:19: daily. [place] [address] Medical Branch QUEtiapine 2020-0 Yes 350mg Take 350 Un ale (SEROQUEL) 5-05 mg by ity of 300 mg 19:19: mouth at [place] tablet 34 bedtime. Medical Branch carvediloL 2020-0 Yes 6.25mg Take 6.25 Univers 6.25 mg 5-05 mg by ity of tablet 19:19: mouth 2 [place] 34 (two) Medical times Branch daily with meals. sacubitril- 2020-0 Yes 1{tbl} Take 1 [facility] ale valsartan 5-05 tablet by ity o f (ENTRESTO) 19:19: mouth 2 [place] 49-[place] mg 34 (two) Medical tablet times Branch daily. potassium 2020-0 Yes 40meq Take 40 Univ ers chloride 5-05 mEq by ity of (KCL-20 19:19: mouth at [place] ORAL) 34 bedtime. Medical Branch LACTULOSE 2020-0 Yes 30mg Take 30 mg Un ale ORAL 5-05 by mouth 2 ity of 19:19: (two) [place] 34 times Medical daily. Branch furosemide 2020-0 Yes 80mg Take 80 mg U nivers (LASIX) 40 5-05 by mouth ity o f mg tablet 19:19: daily. [place] [address] Medical Branch QUEtiapine 2020-0 Yes 350mg Take 350 Un ale (SEROQUEL) 5-05 mg by ity of 300 mg 19:19: mouth at [place] tablet 34 bedtime. Medical Branch carvediloL 2020-0 Yes 6.25mg Take 6.25 Univers 6.25 mg 5-05 mg by ity of tablet 19:19: mouth 2 [place] [address] (two) Medical times Branch daily with meals. sacubitril- 2020-0 Yes 1{tbl} Take 1 Un ale valsartan 5-05 tablet by ity o f (ENTRESTO) 19:19: mouth 2 [place] 49-[place] mg 34 (two) Medical tablet times Branch daily. potassium 2020-0 Yes 40meq Take 40 Univ ers chloride 5-05 mEq by ity of (KCL-20 19:19: mouth at [place] ORAL) 34 bedtime. Medical Branch LACTULOSE 2020-0 Yes 30mg Take 30 mg [place] ale ORAL 5-05 by mouth 2 ity of 19:19: (two) [place] [address] times Medical daily. Branch furosemide 2020-0 Yes 80mg Take 80 mg U nivers (LASIX) 40 5-05 by mouth ity o f mg tablet 19:19: daily. [place] [address] Medical Branch QUEtiapine 2020-0 Yes 350mg Take 350 Un ale (SEROQUEL) 5-05 mg by ity of 300 mg 19:19: mouth at [place] tablet 34 bedtime. Medical Branch carvediloL 2020-0 Yes 6.25mg Take 6.25 Univers 6.25 mg 5-05 mg by ity of tablet 19:19: mouth 2 [place] [address] (two) Medical times Branch daily with meals. sacubitril- 2020-0 Yes 1{tbl} Take 1 Un ale valsartan 5-05 tablet by ity o f (ENTRESTO) 19:19: mouth 2 [place] 49-[place] mg 34 (two) Medical tablet times Branch daily. potassium 2020-0 Yes 40meq Take 40 Univ ers chloride 5-05 mEq by ity of (KCL-20 19:19: mouth at [place] ORAL) 34 bedtime. Medical Branch LACTULOSE 2020-0 Yes 30mg Take 30 mg Un ale ORAL 5-05 by mouth 2 ity of 19:19: (two) [place] [address] times Medical daily. Branch furosemide 2020-0 Yes 80mg Take 80 mg U nivers (LASIX) 40 5-05 by mouth ity o f mg tablet 19:19: daily. [place] [address] Medical Branch QUEtiapine 2020-0 Yes 350mg Take 350 Un ale (SEROQUEL) 5-05 mg by ity of 300 mg 19:19: mouth at [place] tablet 34 bedtime. Medical Branch carvediloL 2020-0 Yes 6.25mg Take 6.25 Univers 6.25 mg 5-05 mg by ity of tablet 19:19: mouth 2 [place] [address] (two) Medical times Branch daily with meals. sacubitril- 2020-0 Yes 1{tbl} Take 1 Un ale valsartan 5-05 tablet by ity o f (ENTRESTO) 19:19: mouth 2 [place] 49-[place] mg 34 (two) Medical tablet times Branch daily. potassium 2020-0 Yes 40meq Take 40 Univ ers chloride 5-05 mEq by ity of (KCL-20 19:19: mouth at [place] ORAL) 34 bedtime. Medical Branch LACTULOSE 2020-0 Yes 30mg Take 30 mg [place] ale ORAL 5-05 by mouth 2 ity of 19:19: (two) [place] [address] times Medical daily. Branch furosemide 2020-0 Yes 80mg Take 80 mg U nivers (LASIX) 40 5-05 by mouth ity o f mg tablet 19:19: daily. [place] [address] Medical Branch QUEtiapine 2020-0 Yes 350mg Take 350 Un ale (SEROQUEL) 5-05 mg by ity of 300 mg 19:19: mouth at [place] tablet 34 bedtime. Medical Branch carvediloL 2020-0 Yes 6.25mg Take 6.25 Univers 6.25 mg 5-05 mg by ity of tablet 19:19: mouth 2 [place] [address] (two) Medical times Branch daily with meals. sacubitril- 2020-0 Yes 1{tbl} Take 1 Un ale valsartan 5-05 tablet by ity o f (ENTRESTO) 19:19: mouth 2 [place] 49-[place] mg 34 (two) Medical tablet times Branch daily. potassium 2020-0 Yes 40meq Take 40 Univ ers chloride 5-05 mEq by ity of (KCL-20 19:19: mouth at [place] ORAL) 34 bedtime. Medical Branch LACTULOSE 2020-0 Yes 30mg Take 30 mg Un ale ORAL 5-05 by mouth 2 ity of 19:19: (two) [place] 34 times Medical daily. Branch furosemide 2020-0 Yes 80mg Take 80 mg U nivers (LASIX) 40 5-05 by mouth ity o f mg tablet 19:19: daily. [address] Branch furosemide 2020-0 Yes 40mg 40 mg, Unive rs (LASIX) 5-05 Oral, ity of tablet 40 15:30: DAILY, [place] mg 00 First dose Medical on Fri Branch 11/16/19 at 1030, Until Discontinu ed, Routine Sliding 2020-0 Yes Subcutaneo Univ ers Scale 5-05 us, Q4H, ity of Insulin - 13:00: [place] Aspart 00 on Fri Medical (NOVOLOG) + 11/16/19 at [facility] Fsbg 0800, Testing Until Discontinu ed, Routine insulin 2019-0 2020- No .2U/kg/ 17 Units [place] ale glargine 5-05 05-05 d (rounded ity of (LANTUS 02:00: 12:56 from 16.8 [place] U-100) 00 :51 Units = Medical injection 0.2 Branch 17 Units Units/kg/d ay ?84 kg), Subcutaneo us, QHS, First dose on Fri11/15/19 at 2100, Until Discontinu ed, Routine vancomycin 2020-0 Yes [id number] 500mg Take 2 U nivers 250 mg 5-05 capsules ity of capsule 00:00: by mouth 4 [place] 00 (four) Medical times Branch daily. vancomycin 2020-0 Yes [id number] 500mg Take 2 U nivers 250 mg 5-05 capsules ity of capsule 00:00: by mouth 4 [place] 00 (four) Medical times Branch daily. vancomycin 2020-0 Yes [id number] 500mg Take 2 U nivers 250 mg 5-05 capsules ity of capsule 00:00: by mouth 4 [place] 00 (four) Medical times Branch daily. vancomycin 2020-0 Yes [id number] 500mg Take 2 U nivers 250 mg 5-05 capsules ity of capsule 00:00: by mouth 4 [place] 00 (four) Medical times Branch daily. vancomycin 2020-0 Yes [id number] 500mg Take 2 U nivers 250 mg 5-05 capsules ity of capsule 00:00: by mouth 4 [place] 00 (four) Medical times Branch daily. vancomycin 2020-0 Yes [id number] 500mg Take 2 U nivers 250 mg 5-05 capsules ity of capsule 00:00: by mouth 4 [place] 00 (four) Medical times Branch daily. vancomycin 2020-0 Yes [id number] 500mg Take 2 U nivers 250 mg 5-05 capsules ity of capsule 00:00: by mouth 4 [place] 00 (four) Medical times Branch daily. vancomycin 2020-0 Yes [id number] 500mg Take 2 U nivers 250 mg 5-05 capsules ity of capsule 00:00: by mouth 4 [place] 00 (four) Medical times Branch daily. vancomycin 2020-0 Yes [id number] 500mg Take 2 U nivers 250 mg 5-05 capsules ity of capsule 00:00: by mouth 4 [place] 00 (four) Medical times Branch daily. vancomycin 2020-0 Yes [id number] 500mg Take 2 U nivers 250 mg 5-05 capsules ity of capsule 00:00: by mouth 4 [place] 00 (four) Medical times Branch daily. vancomycin 2020-0 Yes [id number] 500mg Take 2 U nivers 250 mg 5-05 capsules ity of capsule 00:00: by mouth 4 [place] 00 (four) Medical times Branch daily. vancomycin 2020-0 Yes [id number] 500mg Take 2 U nivers 250 mg 5-05 capsules ity of capsule 00:00: by mouth 4 [place] 00 (four) Medical times Branch daily. vancomycin 2020-0 2020- No [id number] 500mg Take 2 Univers 250 mg 5-05 09-23 capsules ity of capsule 00:00: 00:00 by mouth 4 [place] as 00 :00 (four) Medical times Branch daily. methadone 2020-0 Yes 30mg 30 mg, Univer s (DOLOPHINE 5-04 Oral, ity of HCL) tablet 15:45: DAILY, [place] 30 mg 00 First dose Medical on Fri Branch 11/15/19 at 1045, Until Discontinu ed, Routine carvediloL 2020-0 Yes 6.25mg 6.25 mg, U nivers (COREG) 5-04 Oral, BID ity of tablet 6.25 13:00: MEALS, [place] mg 00 First dose Medical on Mon Branch 11/15/19 at 0800, Until Discontinu ed, Routine QUEtiapine 2020-0 Yes 300mg 300 mg, Uni vers (SEROQUEL) 04 Oral, QHS, ity of tablet 300 02:00: First dose [place] mg 00 on [facility] 11/14/19 at Branch 2100, Until Discontinu ed, Routine magnesium 2019-0 2020- No 2g 2 g, IV Univ ers sulfate in 11-13 Piggyback, it y of water 2 17:30: 16:38 ONCE, 1 [place] gram/50 mL 00 :00 dose, [facility] javier (4 %) 11/14/19 at Branch infusion 2 1230, g Routine KCL 2019-0 2020- No 40meq 40 mEq, Univers (KLOR-CON 11-13 Oral, ONCE ity of M20) tablet 17:30: 16:38 NOW, 1 [place] 40 mEq 00 :00 dose, [facility] 11/14/19 at Branch 1230, Routine QUEtiapine 2019-0 2020- No 200mg 200 mg, Un ale (SEROQUEL) 11-13 Oral, ity of tablet 200 06:45: 05:43 ONCE, 1 [place] mg 00 :00 dose, [facility] 11/14/19 at Branch 0145, Routine QUEtiapine 2019-0 2020- No 100mg 100 mg, Un ale (SEROQUEL) 11-13 Oral, QHS, it y of tablet 100 02:00: 05:32 First dose [place] mg 00 :57 on [facility] 11/13/19 at Branch 2100, Until Discontinu ed, Routine pantoprazol 2019-0 Yes 40mg 40 mg, Univ ers e 11-13 Oral, BID, ity of (PROTONIX) 01:00: First dose [place] EC tablet 00 on [facility] 40 mg 11/13/19 at Branch 2000, Until Discontinu ed, Routine Sliding 2020-0 2020- No Subcutaneo Uni vers Scale 11-12 us, TID ity of Insulin - 22:00: 12:57 MEALS+HS, [place] Aspart 00 :38 First dose Medical (NOVOLOG) + on [facility] Fs[facility] 11/13/19 at Testing 1700, Until Discontinu ed, Routine furosemide 2019- No 80mg 80 mg, Univ ers (LASIX) 11-12 Oral, ity of tablet 80 17:00: 04:57 DAILY, [place] mg 00 :48 First dose Medical on [facility] Branch 11/13/19 at 1200, Until Discontinu ed, Routine QUEtiapine 2019- No 100mg 100 mg, Un ale (SEROQUEL) 11-12 Oral, QHS, it y of tablet 100 05:15: 11:12 First dose [place] mg 00 :52 on [facility] Medical 11/13/19 at Branch 0015, Until Discontinu ed, Routine morpHINE 2019- No 2mg 2 mg, Slow Un ale injection 2 11-11 IV Push, ity of mg 20:45: 15:47 Q8HPRN, [place] 52 :59 Starting Medical Fri11/12/19 Branch at 1545, Until 11/15/19 at 1047, Routine, Pain (scale 7-10) vancomycin 2019- No 500mg 500 mg, Un ale (VANCOCIN) 11-1103 Rectal, ity o f 500 mg in 17:45: 19:17 Q6H ABX, [place] as NaCl 0.9% 00 :43 First dose Medi javier (NS) enema on Fri Branch 11/12/19 at 1245, Until Discontinu ed, 100 mL
Reas on for Anti-Infec tive: Documented Infection< br>Documen thong Infection Site: Abdominal< br>Duratio n of Therapy: 7 days metroNIDAZO No 500mg 500 mg, IV Univers LE (FLAGYL 11-11 Piggyback, it y of I.V.) 17:30: 15:50 Q8H ABX, [place] Piggyback 00 :59 First dose Medi javier 500 mg on Fri Branch 11/12/19 at 1230, Until Discontinu ed, 100 mL
Reas on for Anti-Infec tive: Documented Infection< br>Documen thong Infection Site: Abdominal< br>Dura tion of Therapy: 7 days vancomycin Yes 500mg 500 mg, Uni vers (FIRVANQ) 11-11 Oral, QID, ity of 50 mg/mL 17:00: First dose [place] oral 00 on Fri Medical solution 11/12/19 at [place] 500 mg 1200, Until Discontinu ed, Routine
Reason for Anti-Infec tive: Documented Infection< br>Documen thong Infection Site: Abdominal< br>Duratio n of Therapy: 7 days furosemide No 40mg 40 mg, Univ ers (LASIX) 11-11 Slow IV ity of injection 16:23: 17:15 Push, [place] 40 mg 00 :00 ONCE, 1 Medical dose, Fri Branch 11/12/19 at 1130, Routine magnesium No 4g 4 g, IV Univ ers sulfate in 11-11 Piggyback, it y of water 4 15:00: 22:13 ONCE, 1 [place] gram/50 mL 00 :00 dose, Fri Medi javier (8 %) IV 11/12/19 at [place] Piggyback 4 1000, g Routine KCL No 40meq 40 mEq, IV Unive rs (POTASSIUM 11-11 Piggyback, it y of CHLORIDE) 15:00: 16:27 ONCE, 1 [place] 40 mEq in 00 :00 dose, Fri Medic al NaCl 0.9% 11/12/19 at [facility] h (NS) 1000, 250 piggyback mL iohexol No 120mL 120 mL, Unive rs (OMNIPAQUE 11-11 Intravenou it y of 350 14:25: 14:25 s, ONCE, 1 [place] BULK-150 00 :00 dose, Fri Medica l mL) 11/12/19 at [place] injection 0945, 120 mL Routine iohexol 2019- No 120mL 120 mL, Unive rs (OMNIPAQUE 11-1030 Intravenou it y of 350 14:54: 14:54 s, ONCE, 1 [place] BULK-150 00 :00 dose, [place] Medica l mL) 11/11/19 at Branch injection 1015, 120 mL Routine linezolid No 600mg 600 mg, IV Univers in dextrose 11-10 Piggyback, i ty of 5% (ZYVOX) 13:00: 14:48 Q12H, [place] 600 mg/300 00 :15 First dose Med ical mL infusion on [place] Branch 600 mg 11/11/19 at 0800, Until Discontinu ed, 300 mL
Reas on for Anti-Infec tive: Empiric Therapy for Suspected Infection< br>Empiric Therapy Site: Abdominal< br>Duratio n of therapy: 7 days
Re stricted use approved by: Complicate d intra-abdo caron infection magnesium 2019- No 4g 4 g, IV Univ ers sulfate in 11-10 Piggyback, it y of water 4 08:30: 10:46 ONCE, 1 [place] gram/50 mL 00 :00 dose, [place] Medi javier (8 %) IV 11/11/19 at [facility] h Piggyback 4 0330, g Routine morpHINE 2019- No 2mg 2 mg, Slow Un ale injection 2 11-10 IV Push, ity of mg 05:33: 17:32 Q6HPRN, [place] 31 :45 Starting Medical [place] Branch 11/11/19 at 0033, Until Fri11/12/19 at 1232, Routine, Pain (scale 7-10) lactated 2019- No 1000mL at 125 Univ ers ringers IV 11-09 mL/hr, ity of infusion 22:30: 12:15 1,000 mL, [place] 1,000 mL 00 :17 IV Medical Infusion, Branch CONTINUOUS , Starting Fri11/10/19 at 1730, Until Fri11/12/19 at 0715, Routine meropenem No 500mg 500 mg, IV Univers (MERREM) 11-09 Piggyback, ity of 500 mg in 22:15: 14:48 Administer [place] NaCl 0.9% 00 :15 over 60 Medical (NS) 50 mL Minutes, [facility] MINI-BAG Q6H ABX, First dose on Fri11/10/19 at 1715, Until Discontinu ed, ESSIE
Re stricted use approved by: KELLEY 8TH FLOOR
R victorino for Anti-Infec tive: Empiric Therapy for Suspected Infection< br>Empiric Therapy Site: Abdominal< br>Duratio n of therapy: 7 days Sliding 2019- No Subcutaneo Uni vers Scale 4-29 05-02 us, Q4H, ity of Insulin - 21:30: 21:00 First dose [place] Aspart 00 :05 on Wed Medical (NOVOLOG) + 11/10/19 at Br anch Fsbg 1630, Testing Until Discontinu ed, Routine dextrose 2020-0 Yes 250mL 250 mL, IV Un ale 10% (D10W) 11-09 Infusion, ity of bolus 21:10: PRN - SEE [place] infusion 07 INSTRUCTIO Medic al 250 mL NS, For Branch glucose < 70 and patient unable to swallow, Starting 11/10/19 at 1610
De xtrose 10% 250 mL bag contains:& nbsp;10 gm = 100 mL 20 gm = 200 mL 25 gm = 250 mL (whole bag) The maximum rate at which dextrose can be infused without producing glycosuria is 0.5 g/kg/hour. &nbs p;BUD: If wrapper is open bag is good for 30 days at room temperatur e. <b r> glucagon 2020-0 Yes 1mg 1 mg, Univers (GLUCAGEN 11-09 Intramuscu ity of DIAGNOSTIC 21:08: lar, PRN, [place] KIT) 33 Starting Medical injection 1 Wed Branch mg 11/10/19 at 1608, Until Discontinu ed, ESSIE, Blood Glucose < or = 70 mg/dL and patient is unable to swallow or has mental changes. morpHINE 2019-0 2020- No 2mg 2 mg, Slow Un ale injection 2 11-0930 IV Push, ity of mg 18:15: 03:14 Q2HPRN, [place] 00 :00 Starting Medical Wed Branch 11/10/19 at 1315, Until 11/10/19 at 2214, Routine, Pain (scale 7-10) NaCl 0.9% 2020-0 2020- No 1000mL at 75 Univ ers (NS) IV 11-09 05-01 mL/hr, IV ity of infusion 17:30: 12:15 Infusion, [place] 1,000 mL 00 :17 CONTINUOUS Medic al , Starting Branch 11/10/19 at 1230, Until Fri11/12/19 at 0715, Routine insulin 2020-0 2020- No 10U 10 Units, Univ ers glargine 11-09 Subcutaneo ity of (LANTUS 17:30: 22:00 us, DAILY, [place] U-100) 00 :34 First dose Medical injection on Fri Branch 10 Units 11/10/19 at 1230, Until Discontinu ed, Routine Sliding 2019-0 2020- No Subcutaneo Uni vers Scale 11-09 us, Q4H, ity of Insulin - 09:00: 21:18 First dose [place] Lispro 00 :49 on Fri Medical (HumaLOG) + 11/10/19 at Br anch Fsbg 0400, Testing Until Discontinu ed, Routine proMETHazin 2019-0 Yes 25mg 25 mg, IV U nivers e 11-09 Piggyback, ity of (PHENERGAN) 07:09: Q6HPRN, [place] 25 mg in 37 Starting Medical NaCl 0.9% Fri Branch (NS) 50 mL 11/10/19 at piggyback 0209, Until Discontinu ed, 50 mL octreotide 2019- No 50ug/h 50 mcg/hr Univers (SANDOSTATI 11-09 (10 ity of N) 1,250 06:15: 14:10 mL/hr), IV [place] mcg in NaCl 00 :40 Infusion, Med ical 0.9% (NS) CONTINUOUS Bran ch infusion , Starting 11/10/19 at 0115, Until 11/13/19 at 0910 pantoprazol 2019- No 8mg/h 8 mg/hr U nivers e 11-0902 (50 ity of (PROTONIX) 06:15: 14:32 mL/hr), IV [place] 80 mg in 00 :18 Piggyback, Medic al NaCl 0.9% CONTINUOUS Bran ch (NS) 500 mL , Starting infusion 11/10/19 at 0115, Until 11/13/19 at 0932, 500 mL NaCl 0.9% 0 2020- No 1000mL at 125 Uni vers (NS) IV 11-09 mL/hr, IV ity of infusion 05:15: 17:25 Infusion, [place] 1,000 mL 00 :53 CONTINUOUS Medic al , Starting Branch 11/10/19 at 0015, Until 11/10/19 at 1225, Routine piperacilli 2020- No 3.375g 3.375 g, Univers n-tazobacta 11-09 IV ity of m (ZOSYN) 05:15: 21:05 Piggyback, [place] 3.375 00 :50 Q6H ABX, Medical gram/50 mL First dose Bra nch Piggyback on Fri RTU 3.375 g 11/10/19 at 0015, Until Discontinu ed, 50 mL
R victorino for Anti-Infec tive: Empiric Therapy for Suspected Infection< br>Empiric Therapy Site: Abdominal< br>Duratio n of therapy: 72 hours morpHINE 2019-2019- No 2mg 2 mg, Slow Un ale injection 2 11-09 IV Push, ity of mg 04:06: 18:06 Q4HPRN, [place] 20 :32 Starting Medical [facility] Branch 11/09/19 at 2306, Until 11/10/19 at 1306, Routine, Pain (scale 7-10) vancomycin 2019- No 1000mg 1,000 mg, Univers 1000 mg in 11-09 IV ity of NS 200 mL 03:45: 03:45 Piggyback, [place] RTU IV 00 :00 ONCE, 1 Medical Piggyback dose, [facility] h 1,000 mg 11/09/19 at 2245
Re ason for Anti-Infec tive: Empiric Therapy for Suspected Infection< br>Empiric Therapy Site: Abdominal< br>Duratio n of therapy: 72 hours proMETHazin 2020- No 25mg 25 mg, IV Univers e 11-09 Piggyback, ity of (PHENERGAN) 03:15: 02:08 ONCE, 1 [place] 25 mg in 00 :00 dose, Tue Medica l NaCl 0.9% 11/09/19 at Bran ch (NS) 50 mL 2215, 50 piggyback mL NaCl 0.9% 2020- No 1000mL at 125 Uni vers (NS) IV 11-09 04-30 mL/hr, ity of infusion 02:31: 00:24 Intravenou [place] 1,000 mL 00 :00 s, ONCE, 1 Medic al dose, Tue Branch 11/09/19 at 2145, ESSIE iohexol 2020-0 2020- No 120mL 120 mL, Unive rs (OMNIPAQUE 11-09 Intravenou it y of 350 00:30: 00:18 s, ONCE, 1 [place] BULK-150 00 :00 dose, Tue Medica l mL) 11/09/19 at [place] injection 1930, 120 mL Routine proMETHazin 2019-0 2020- No 25mg 25 mg, IV Univers e 11-09 Piggyback, ity of (PHENERGAN) 00:15: 23:24 ONCE, 1 [place] 25 mg in 00 :00 dose, Tue Medica l NaCl 0.9% 11/09/19 at [facility] (NS) 50 mL 1914, 50 piggyback mL morpHINE 2019-0 2020- No 4mg 4 mg, Slow Un ale injection 4 11-09 IV Push, ity of mg 00:15: 23:30 ONCE, 1 [place] 00 :00 dose, Tue Medical 11/09/19 at [place] 191, STAT pantoprazol 2019-0 2020- No 40mg 40 mg, IV Univers e 11-09 Piggyback, ity of (PROTONIX) 00:15: 23:42 ONCE, 1 [place] 40 mg in 00 :00 dose, Tue Medica l NaCl 0.9% 11/09/19 at [facility] (NS) 100 mL 1914, 100 MINI-BAG mL NaCl 0.9% 2020-0 2020- No 1000mL at 999 Uni vers (NS) bolus 11-08-29 mL/hr, ity of infusion 23:30: 02:08 1,000 mL, [place] 1,000 mL 00 :00 IV Medical Infusion, [place] ONCE, 1 dose, [facility] 11/09/19 at 1830, ESSIE NaCl 0.9% 2020-0 2020- No 1000mL at 999 Uni vers (NS) bolus 11-08-29 mL/hr, ity of infusion 23:15: 00:31 1,000 mL, [place] 1,000 mL 00 :00 IV Medical Infusion, [place] ONCE, 1 dose, [facility] 11/09/19 at 1815, ESSIE Lactulose Lactulose 2020-0 Yes [place] [address] [facility] - 00:00: [facility] Valsartan Valsartan 2020-0 Yes [place] [address] [facility] - 00:00: [facility] QUEtiapine 2020-0 Yes 300mg Take 300 Un ale (SEROQUEL) 1-19 mg by ity of 300 mg 22:47: mouth at [place] tablet 17 bedtime. Medical Branch carvediloL 2020-0 Yes 6.25mg Take 6.25 Univers 6.25 mg 1-19 mg by ity of tablet 22:47: mouth 2 [place] 17 (two) Medical times Branch daily with meals. sacubitril- 2020-0 Yes 1{tbl} Take 1 Un ale valsartan 1-19 tablet by ity o f (ENTRESTO) 22:47: mouth 2 [place] 49-51 mg 17 (two) Medical tablet times Branch daily. insulin 2020-0 Yes 35U inject 35 Unive rs aspart 1-19 Units ity of prot/insuln 22:47: under the [place] asp 17 skin 2 Medical (NOVOLOG (two) Branch MIX 70-30 times SC) daily. potassium 2020-0 Yes 20meq Take 20 Univ ers chloride 1-19 mEq by ity of (KCL-20 22:47: mouth 2 [place] ORAL) 17 (two) Medical times Branch daily. LACTULOSE 2020-0 Yes 30mg Take 30 mg Un la[place] ORAL 1-19 by mouth 2 ity of 22:47: (two) [place] 17 times Medical daily. Branch furosemide 2020-0 Yes 40mg Take 40 mg U nivers (LASIX) 40 1-19 by mouth ity o f mg tablet 22:47: every [place] morning Medical and Branch evening. HYDROcodone 2020-0 Yes 1{tbl} Take 1 Un ale -acetaminop 1-19 tablet by ity of hen 10-325 22:47: mouth [place] mg tablet 17 every 4 Medical (four) Branch hours as needed. methadone 5 2020-0 Yes 30mg Take 30 mg Univers mg tablet 1-19 by mouth ity of 22:47: at [place] 17 bedtime. Medical Branch QUEtiapine 2020-0 Yes 300mg Take 300 Un ale (SEROQUEL) 1-19 mg by ity of 300 mg 22:47: mouth at [place] tablet 17 bedtime. Medical Branch carvediloL 2020-0 Yes 6.25mg Take 6.25 Univers 6.25 mg 1-19 mg by ity of tablet 22:47: mouth 2 [place] 17 (two) Medical times Branch daily with meals. sacubitril- 2020-0 Yes 1{tbl} Take 1 Un ale valsartan 1-19 tablet by ity o f (ENTRESTO) 22:47: mouth 2 [place] 49-51 mg 17 (two) Medical tablet times Branch daily. insulin 2020-0 Yes 35U inject 35 Unive rs aspart 1-19 Units ity of prot/insuln 22:47: under the [place] asp 17 skin 2 Medical (NOVOLOG (two) Branch MIX 70-30 times SC) daily. potassium 2020-0 Yes 20meq Take 20 Univ ers chloride 1-19 mEq by ity of (KCL-20 22:47: mouth 2 [place] ORAL) 17 (two) Medical times Branch daily. LACTULOSE 2020-0 Yes 30mg Take 30 mg Un ale ORAL 1-19 by mouth 2 ity of 22:47: (two) [place] [address] times Medical daily. Branch furosemide 2020-0 Yes 40mg Take 40 mg U nivers (LASIX) 40 1-19 by mouth ity o f mg tablet 22:47: every [place] [address] morning Medical and Branch evening. HYDROcodone 2020-0 Yes 1{tbl} Take 1 Un ale -acetaminop 1-19 tablet by ity of hen 10-325 22:47: mouth [place] mg tablet 17 every 4 Medical (four) Branch hours as needed. methadone 5 2020-0 Yes 30mg Take 30 mg Univers mg tablet 1-19 by mouth ity of 22:47: at [place] [address] bedtime. Medical Branch QUEtiapine 2020-0 Yes 300mg Take 300 Un ale (SEROQUEL) 1-19 mg by ity of 300 mg 22:47: mouth at [place] tablet 17 bedtime. Medical Branch carvediloL 2020-0 Yes 6.25mg Take 6.25 Univers 6.25 mg 1-19 mg by ity of tablet 22:47: mouth 2 [place] 17 (two) Medical times Branch daily with meals. sacubitril- 2020-0 Yes 1{tbl} Take 1 Un ale valsartan 1-19 tablet by ity o f (ENTRESTO) 22:47: mouth 2 [place] 49-51 mg 17 (two) Medical tablet times Branch daily. insulin 2020-0 Yes 35U inject 35 Unive rs aspart 1-19 Units ity of prot/insuln 22:47: under the [place] asp 17 skin 2 Medical (NOVOLOG (two) Branch MIX 70-30 times SC) daily. potassium 2020-0 Yes 20meq Take 20 Univ ers chloride 1-19 mEq by ity of (KCL-20 22:47: mouth 2 [place] ORAL) 17 (two) Medical times Branch daily. LACTULOSE 2020-0 Yes 30mg Take 30 mg Un ale ORAL 1-19 by mouth 2 ity of 22:47: (two) [place] 17 times Medical daily. Branch furosemide 2020-0 Yes 40mg Take 40 mg U nivers (LASIX) 40 1-19 by mouth ity o f mg tablet 22:47: every [place] morning Medical and Branch evening. HYDROcodone 2020-0 Yes 1{tbl} Take 1 Un ale -acetaminop 1-19 tablet by ity of hen 10-325 22:47: mouth [place] mg tablet 17 every 4 Medical (four) Branch hours as needed. methadone 5 2020-0 Yes 30mg Take 30 mg Univers mg tablet 1-19 by mouth ity of 22:47: at [place] [address] bedtime. Medical Branch QUEtiapine 2020-0 Yes 300mg Take 300 Un ale (SEROQUEL) 1-19 mg by ity of 300 mg 22:47: mouth at [place] tablet 17 bedtime. Medical Branch carvediloL 2020-0 Yes 6.25mg Take 6.25 Univers 6.25 mg 1-19 mg by ity of tablet 22:47: mouth 2 [place] 17 (two) Medical times Branch daily with meals. sacubitril- 2020-0 Yes 1{tbl} Take 1 Un ale valsartan 1-19 tablet by ity o f (ENTRESTO) 22:47: mouth 2 [place] 49-51 mg 17 (two) Medical tablet times Branch daily. insulin 2020-0 Yes 35U inject 35 Unive rs aspart 1-19 Units ity of prot/insuln 22:47: under the [place] asp 17 skin 2 Medical (NOVOLOG (two) Branch MIX 70-30 times SC) daily. potassium 2020-0 Yes 20meq Take 20 Univ ers chloride 1-19 mEq by ity of (KCL-20 22:47: mouth 2 [place] ORAL) 17 (two) Medical times Branch daily. LACTULOSE 2020-0 Yes 30mg Take 30 mg Un ale ORAL 1-19 by mouth 2 ity of 22:47: (two) [place] 17 times Medical daily. Branch furosemide 2020-0 Yes 40mg Take 40 mg U nivers (LASIX) 40 1-19 by mouth ity o f mg tablet 22:47: every [place] 17 morning Medical and Branch evening. HYDROcodone 2020-0 Yes 1{tbl} Take 1 Un ale -acetaminop 1-19 tablet by ity of hen 10-325 22:47: mouth [place] mg tablet 17 every 4 Medical (four) Branch hours as needed. methadone 5 2020-0 Yes 30mg Take 30 mg Univers mg tablet 1-19 by mouth ity of 22:47: at [place] 17 bedtime. Medical Branch QUEtiapine 2020-0 Yes 300mg Take 300 Un ale (SEROQUEL) 1-19 mg by ity of 300 mg 22:47: mouth at [place] tablet 17 bedtime. Medical Branch carvediloL 2020-0 Yes 6.25mg Take 6.25 Univers 6.25 mg 1-19 mg by ity of tablet 22:47: mouth 2 [place] 17 (two) Medical times Branch daily with meals. sacubitril- 2020-0 Yes 1{tbl} Take 1 Un ale valsartan 1-19 tablet by ity o f (ENTRESTO) 22:47: mouth 2 [place] 49-51 mg 17 (two) Medical tablet times Branch daily. insulin 2020-0 Yes 35U inject 35 Unive rs aspart 1-19 Units ity of prot/insuln 22:47: under the [place] asp 17 skin 2 Medical (NOVOLOG (two) Branch MIX 70-30 times SC) daily. potassium 2020-0 Yes 20meq Take 20 Univ ers chloride 1-19 mEq by ity of (KCL-20 22:47: mouth 2 [place] ORAL) 17 (two) Medical times Branch daily. LACTULOSE 2020-0 Yes 30mg Take 30 mg Un ale ORAL 1-19 by mouth 2 ity of 22:47: (two) [place] 17 times Medical daily. Branch furosemide 2020-0 Yes 40mg Take 40 mg U nivers (LASIX) 40 -19 by mouth ity o f mg tablet 22:47: every [place] [address] morning Medical and Branch evening. HYDROcodone 2020-0 Yes 1{tbl} Take 1 Un ale -acetaminop -19 tablet by ity of hen 10-325 22:47: mouth [place] mg tablet 17 every 4 Medical (four) Branch hours as needed. methadone 5 2020-0 Yes 30mg Take 30 mg Univers mg tablet -19 by mouth ity of 22:47: at [place] [address] bedtime. Medical Branch Sliding 2020-0 Yes Subcutaneo Univ ers Scale 1-19 us, Q4H, ity of Insulin - 22:00: [place] Aspart 00 on [facility] [facility] (NOVOLOG) + 08/01/19 at anch Fsbg 1600, Testing Until Discontinu ed, Routine insulin 2020-0 Yes 3U 3 Units, Univer s aspart - Subcutaneo ity of RAPID 19:15: us, TID [place] (NOVOLOG 00 MEALS, Medical U-100 First dose Branch INSULIN on Sun ASPART) 08/01/19 at injection 3 1315, Units Until Discontinu ed, Routine sacubitril- 2020-0 Yes 1{tbl} 1 tablet, Univers valsartan 08-01 Oral, BID, ity of (ENTRESTO) 14:00: First dose [place] 49-51 mg 00 on Sun Medical tablet 1 08/01/19 at [facility] h tablet 0800, Until Discontinu ed, Routine
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
Reason for Anti-Infec tive: Empiric Therapy for Suspected Infection< br>Empiric Therapy Site: Abdominal< br>Duratio n of therapy: 7 days lactulose 2019-0 Yes 30mL 30 mL, Univer s (CEPHULAC) 08-01 Oral, BID, ity of solution 30 14:00: First dose [place] mL 00 on [facility] 08/01/19 at Branch 0800, Until Discontinu ed, Routine insulin NPH 2019-0 Yes 35U 35 Units, U nivers and regular 08-01 Subcutaneo it y of human 70-30 13:30: us, BIDAC, [place] (HUMULIN 00 First dose Medic al 70-30 U-100 on [facility] INSULIN) 08/01/19 at 100 unit/mL 0730, (70-30) Until injection Discontinu 35 Units ed, Routine Sliding 2019-0 2020- No Subcutaneo Uni vers Scale 08-01 us, AC+HS, ity of Insulin - 13:30: 19:00 First dose [place] Aspart 00 :16 on [facility] (NOVOLOG) + 08/01/19 at anch [facility]sbg 0730, Testing Until Discontinu ed, Routine NaCl 0.9% 2019-0 2020- No 1000mL at 100 Uni vers (NS) IV 08-01 mL/hr, IV ity of infusion 11:15: 21:17 Infusion, [place] as 1,000 mL 00 :34 CONTINUOUS Medic al , Starting [facility] 08/01/19 at 0515, Until [place] 08/01/19 at 1517, Routine NaCl 0.9% 2019-0 2020- No 500mL at 999 Univ ers (NS) bolus 08-01 mL/hr, 500 it y of infusion 09:30: 08:35 mL, IV [place] 500 mL 00 :00 Infusion, Medical ONCE, 1 Branch dose, [place] 08/01/19 at 0330, STAT albuterol 2019-0 Yes 2{puff} 2 Puff, Un ale (VENTOLIN) 08-01 Inhalation ity of inhaler 2 06:21: , Q4HPRN, [place] as Puff 25 Starting [facility] 08/01/19 at 0021, Until Discontinu ed, Routine, Wheezing, Shortness of Breath QUEtiapine 2019-0 Yes 300mg 300 mg, Uni vers (SEROQUEL) 08-01 Oral, QHS, ity of tablet 300 05:30: First dose [place] mg 00 on [facility] Medical 07/31/19 at Branch 2330, Until Discontinu ed, Routine methadone 2020-0 Yes 30mg 30 mg, Univer s (DOLOPHINE -19 Oral, QHS, ity of HCL) tablet 05:15: First dose [place] 30 mg 00 on [facility] Medical 07/31/19 at Branch 2315, Until Discontinu ed, Routine FENTanyl PF 2019-0 2020- No 25ug 25 mcg, Un ale (SUBLIMAZE 08-01 Slow IV ity o f (PF)) 04:45: 04:04 Push, [place] injection 00 :00 ONCE, 1 Medical 25 mcg dose, Sat Branch 07/31/19 at 2245, STAT insulin 2019-0 2020- No 10U 10 Units, Univ ers regular 08-01 IV Push, ity of human 04:15: 03:22 ONCE, 1 [place] (HUMULIN R) 00 :00 dose, Sat Med ical injection 07/31/19 at Bran ch 10 Units 2215, Routine HYDROcodone 2019-0 2020- No 1{tbl} 1 tablet, Univers -acetaminop 08-01 Oral, ity of hen (NORCO) 04:13: 08:54 Q6HPRN, [place] 10-325 mg 02 :57 Starting Medica l tablet 1 [facility] Branch tablet 07/31/19 at 2213, Until 08/01/19 at 0254, Routine, Pain (scale 7-10) glucagon 2019-0 Yes 1mg 1 mg, Univers (GLUCAGEN 08-01 Intramuscu ity of DIAGNOSTIC 03:44: lar, PRN, [place] KIT) 34 Starting Medical injection 1 [facility] Branch mg 07/31/19 at 2144, Until Discontinu ed, ESSIE, Blood Glucose < or = 70 mg/dL and patient is unable to swallow or has mental changes. insulin 2020-0 2020- No .1U/kg/ 0.1 Univer s regular 08-01 h Units/kg/h ity o f human 03:30: 21:16 r ?69.9 kg [place] (HUMULIN R) 25 :49 (6.99 Medical 100 Units mL/hr), IV Bran ch in NaCl Infusion, 0.9% (NS) TITRATE, 100 mL Starting infusion 07/31/19 at 2130, Until 08/01/19 at 1516 NaCl 0.9% 2019-0 2019- No 1000mL at 999 Uni vers (NS) bolus - 01-19 mL/hr, ity of infusion 03:00: 02:09 1,000 mL, [place] as 1,000 mL 00 :00 IV Medical Infusion, Branch ONCE, 1 dose, 07/31/19 at 2100, STAT insulin NPH Yes 35U Inject 35 C [...] Center times daily with breakfast and dinner. No known No [facility] Quetiapine Quetiapine Yes Corey not [facility] [...] 0.25 Mg 0.25 Mg Patient Tablet Tablet [facility] Hydrocodone Hydrocodone Yes [address] [facility] Bit/Acetami Bit/Acetami Hours as [facility] - nophen nophen needed for [place] ([place] [facility] [facility] 10-325 10-325 Medical Tablet) 1 [...] :00 s Dose Oral Dose Oral Med [facility] Vital Signs Vital Name Observation Time Observation Value Comments Source Systolic blood 2021-04-09 16:57:00 131 mm[Hg] Univer sity [facility] Diastolic blood 2021-04-09 16:57:00 70 mm[Hg] [facility] Heart rate 2021-04-09 16:57:00 60 /min [facility] Body temperature 2021-04-09 16:57:00 36.22 Juli [facility] Respiratory rate 2021-04-09 16:57:00 16 /min [facility] Oxygen saturation in 2021-04-09 16:57:00 94 /min [facility] blood by [facility] Pulse oximetry Branch Body weight 2021-04-08 08:51:00 72.848 kg [facility] BMI 2021-04-08 08:51:00 28.45 kg/m2 [facility] [place] [facility] WEIGHT 2020-12-07 14:17:00 78.5 kg WEIGHT 2020-12-03 06:00:00 77.3 kg HEIGHT 2020-11-30 11:30:00 154 cm HEIGHT 2020-11-27 11:20:00 154 cm WEIGHT 2020-11-27 11:20:00 74.1 kg WEIGHT 2020-10-19 06:36:00 76.8 kg Systolic blood 2020-09-08 01:00:00 175 mm[Hg] Univer sity of pressure [facility] Branch Diastolic blood 2020-09-08 01:00:00 77 mm[Hg] Unive rsity of pressure [facility] Heart rate 2020-09-08 01:00:00 68 /min [facility] [place] [facility] Respiratory rate 2020-09-08 01:00:00 17 /min Univ ersity of [facility] Oxygen saturation in 2020-09-08 01:00:00 100 /min University of Arterial blood by [place] [employer] Pulse oximetry Branch Body temperature 2020-09-08 00:32:00 36.83 Juli Univ ers[facility] [place] [facility] Body height 2020-09-08 00:32:00 160 cm [facility] [place] [facility] Body weight 2020-09-08 00:32:00 76.658 kg [facility] [place] [facility] BMI 2020-09-08 00:32:00 29.94 kg/m2 [facility] [place] [facility] WEIGHT 2020-08-10 15:12:00 81 kg WEIGHT 2020-06-22 14:32:00 79.6 kg Systolic blood 2020-02-08 07:31:00 138 mm[Hg] Univer sity of [facility] Branch Diastolic blood 2020-02-08 07:31:00 86 mm[Hg] Unive rsity of pressure [place] [facility] Heart rate 2020-02-08 07:31:00 80 /min [facility] [place] [facility] Oxygen saturation in 2020-02-08 07:31:00 98 /min University of Arterial blood by [employer] javier Pulse oximetry Branch Respiratory rate 2020-02-08 06:00:00 12 /min Univ ersity of [facility] Body temperature 2020-02-08 03:16:00 36.56 Juli [facility] [place] [facility] Body weight 2020-02-08 03:16:00 72.576 kg [facility] [place] [facility] BMI 2020-02-08 03:16:00 28.34 kg/m2 [facility] [place] [facility] Systolic blood 2020-02-08 07:31:00 138 mm[Hg] Univer sity of pressure [place] [facility] Diastolic blood 2020-02-08 07:31:00 86 mm[Hg] Unive rsity of pressure [place] [facility] Heart rate 2020-02-08 07:31:00 80 /min [facility] [place] [facility] Oxygen saturation in 2020-02-08 07:31:00 98 /min University of Arterial blood by [place] [employer] javier Pulse oximetry Branch Respiratory rate 2020-02-08 06:00:00 12 /min Univ ersity [facility] [place] [facility] Body temperature 2020-02-08 03:16:00 36.56 Juli Univ [facility] [place] [facility] Body weight 2020-02-08 03:16:00 72.576 kg [facility] [place] [facility] BMI 2020-02-08 03:16:00 28.34 kg/m2 [facility] [place] [facility] Systolic blood 2020-01-30 21:00:00 115 mm[Hg] Univer sity of pressure [place] [facility] Diastolic blood 2020-01-30 21:00:00 66 mm[Hg] Unive rsity of pressure [place] [facility] Heart rate 2020-01-30 21:00:00 73 /min [facility] [place] [facility] Respiratory rate 2020-01-30 21:00:00 16 /min Univ ersity [facility] [place] [facility] Oxygen saturation in 2020-01-30 21:00:00 93 /min University of Arterial blood by [place] [employer] javier Pulse oximetry Branch Body temperature 2020-01-30 19:35:00 37.61 Juli Univ ersity of [facility] Branch Body height 2020-01-30 19:35:00 160 cm [facility] [place] [facility] Body weight 2020-01-30 19:35:00 72.576 kg [facility] [place] [facility] BMI 2020-01-30 19:35:00 28.34 kg/m2 [facility] [place] [facility] Systolic blood 2020-01-30 21:00:00 115 mm[Hg] Univer sity of pressure [place] [facility] Diastolic blood 2020-01-30 21:00:00 66 mm[Hg] Unive rsity of pressure [place] [facility] Heart rate 2020-01-30 21:00:00 73 /min [facility] [place] [facility] Respiratory rate 2020-01-30 21:00:00 16 /min Univ ersity [facility] [place] [facility] Oxygen saturation in 2020-01-30 21:00:00 93 /min University of Arterial blood by [facility] Pulse oximetry Branch Body temperature 2020-01-30 19:35:00 37.61 Juli Univ [facility] [place] [facility] Body height 2020-01-30 19:35:00 160 cm [facility] [place] [facility] Body weight 2020-01-30 19:35:00 72.576 kg [facility] [place] [facility] BMI 2020-01-30 19:35:00 28.34 kg/m2 [facility] [place] [facility] Systolic blood 2019-12-16 05:00:00 147 mm[Hg] Univer sity of pressure [place] [facility] Diastolic blood 2019-12-16 05:00:00 73 mm[Hg] Unive rsity of pressure [place] [facility] Heart rate 2019-12-16 05:00:00 88 /min [facility] [place] [facility] Oxygen saturation in 2019-12-16 05:00:00 97 /min University of Arterial blood by [facility] Pulse oximetry Branch Respiratory rate 2019-12-16 03:45:00 15 /min Univ ersity [facility] [place] [facility] Body height 2019-12-16 00:45:54 160 cm [facility] [place] [facility] Body weight 2019-12-16 00:45:54 80.513 kg [facility] [place] [facility] BMI 2019-12-16 00:45:54 31.44 kg/m2 [facility] [place] [facility] Body temperature 2019-12-16 00:14:00 37.61 Juli Univ [facility] [place] [facility] Systolic blood 2019-12-16 05:00:00 147 mm[Hg] Univer sity of pressure [place] [facility] Diastolic blood 2019-12-16 05:00:00 73 mm[Hg] Unive rsity of pressure [place] [facility] Heart rate 2019-12-16 05:00:00 88 /min [facility] [place] [facility] Oxygen saturation in 2019-12-16 05:00:00 97 /min University of Arterial blood by [facility] javier Pulse oximetry Branch Respiratory rate 2019-12-16 03:45:00 15 /min Univ ersity [facility] [place] [facility] Body height 2019-12-16 00:45:54 160 cm [facility] [place] [facility] Body weight 2019-12-16 00:45:54 80.513 kg [facility] [place] [facility] BMI 2019-12-16 00:45:54 31.44 kg/m2 [facility] [place] [facility] Body temperature 2019-12-16 00:14:00 37.61 Juli [facility] [place] [facility] Systolic blood 2019-11-30 19:28:00 164 mm[Hg] Univer sity of pressure [place] [facility] Diastolic blood 2019-11-30 19:28:00 94 mm[Hg] Unive rsity of pressure [place] [facility] Heart rate 2019-11-30 19:28:00 92 /min [facility] [place] [facility] Respiratory rate 2019-11-30 19:28:00 20 /min Univ ersity [facility] [place] [facility] Oxygen saturation in 2019-11-30 19:28:00 94 /min University of Arterial blood by [facility] Pulse oximetry Branch Body temperature 2019-11-30 17:18:00 37.11 Juli Univ [facility] [place] [facility] Body height 2019-11-30 17:18:00 160 cm [facility] [place] [facility] Body weight 2019-11-30 17:18:00 73.936 kg [facility] [place] [facility] BMI 2019-11-30 17:18:00 28.87 kg/m2 [facility] [place] [facility] Systolic blood 2019-11-30 19:28:00 164 mm[Hg] Univer sity of pressure [place] [facility] Diastolic blood 2019-11-30 19:28:00 94 mm[Hg] Unive rsity of pressure [place] [facility] Heart rate 2019-11-30 19:28:00 92 /min [facility] [place] [facility] Respiratory rate 2019-11-30 19:28:00 20 /min Univ ers[facility] [place] [facility] Oxygen saturation in 2019-11-30 19:28:00 94 /min University of Arterial blood by [facility] Pulse oximetry Branch Body temperature 2019-11-30 17:18:00 37.11 Juli Univ [facility] [place] [facility] Body height 2019-11-30 17:18:00 160 cm [facility] [place] [facility] Body weight 2019-11-30 17:18:00 73.936 kg [facility] [place] [facility] BMI 2019-11-30 17:18:00 28.87 kg/m2 [facility] [place] [facility] Systolic blood 2019-11-16 12:41:00 144 mm[Hg] Univer sity of pressure [place] [facility] Diastolic blood 2019-11-16 12:41:00 76 mm[Hg] Unive rsity of pressure [place] [facility] Heart rate 2019-11-16 12:41:00 74 /min [facility] [place] [facility] Body temperature 2019-11-16 12:41:00 36.89 Juli Univ [facility] [place] [facility] Respiratory rate 2019-11-16 12:41:00 18 /min Univ ers[facility] [place] [facility] Oxygen saturation in 2019-11-16 12:41:00 96 /min [facility] Arterial blood by [place] [employer] javier Pulse oximetry Branch Body weight 2019-11-12 13:00:00 84 kg [facility] [place] [facility] BMI 2019-11-12 13:00:00 32.80 kg/m2 [facility] [place] [facility] Body height 2019-11-10 03:58:00 160 cm [facility] [place] [facility] Systolic blood 2019-08-01 22:00:00 138 mm[Hg] Univer sity of pressure [facility] Branch Diastolic blood 2019-08-01 22:00:00 75 mm[Hg] Unive rsity of pressure [facility] Branch Heart rate 2019-08-01 22:00:00 68 /min [facility] [place] [facility] Body temperature 2019-08-01 22:00:00 36.61 Juli [facility] [place] [facility] Respiratory rate 2019-08-01 22:00:00 16 /min [facility] [place] [facility] Oxygen saturation in 2019-08-01 22:00:00 97 /min [facility] of Arterial blood by [employer] javier Pulse oximetry Branch Body height 2019-08-01 04:25:00 161.3 cm [facility] [place] [facility] Body weight 2019-08-01 04:25:00 72.485 kg [facility] [place] [facility] BMI 2019-08-01 04:25:00 27.86 kg/m2 [facility] [place] [facility] Procedures Procedure Date / Time Performing Clinician Source Performed COVID-19 (ID NOW RAPID 2021-04-09 17:04:00 Wily Stuart [facility] TESTING) Medical [place] XR CHEST 1 VW 2021-04-09 15:32:27 Bj Zamorano [facility] POCT GLUCOSE (AUTOMATED) 2021-04-09 12:28:00 Caryn Kim [facility] CBC WITH DIFF 2021-04-09 07:55:00 [facility]OLIC PANEL 2021-04-09 07:53:00 Wily Stuart [facility] (NA, K, CL, CO2, GLUCOSE, Medica l Branch BUN, CREATININE, CA) POCT GLUCOSE (AUTOMATED) 2021-04-08 21:36:00 Caryn Kim [facility] POCT GLUCOSE (AUTOMATED) 2021-04-08 16:59:00 Caryn Kim [facility] POCT GLUCOSE (AUTOMATED) 2021-04-08 12:34:00 Caryn Kim [facility] AMMONIA, PLASMA 2021-04-08 09:10:00 Sigrid Roque [facility] CBC WITH DIFF 2021-04-08 09:10:00 Cristina Sigrid Ghazala [facility] BASIC METABOLIC PANEL 2021-04-08 09:02:00 Sig[address] [facility] [place] (NA, K, CL, CO2, GLUCOSE, Medica l Branch BUN, CREATININE, CA) CBC WITH DIFF 2021-04-07 08:57:00 Sigrid Roque [facility] BASIC METABOLIC PANEL 2021-04-07 08:50:00 Sigrid Roque [facility] [place] (NA, K, CL, CO2, GLUCOSE, Medica l Branch BUN, CREATININE, CA) MAGNESIUM 2021-04-06 10:05:00 Caryn Kim [facility] COMP. METABOLIC PANEL 2021-04-06 10:05:00 Caryn Kim [facility] ([id number]) [facility] [place] N-TERMINAL PRO-BNP 2021-04-06 10:05:00 Caryn Kim [facility] POCT GLUCOSE (AUTOMATED) 2021-04-05 21:38:00 Caryn Kim [facility] POCT GLUCOSE (AUTOMATED) 2021-04-05 16:37:00 Caryn Kim [facility] POCT GLUCOSE (AUTOMATED) 2021-04-05 12:16:00 Caryn Kim [facility] PHOSPHORUS 2021-04-05 10:01:00 Judy jakob [facility] MAGNESIUM 2021-04-05 10:01:00 Judy jakob [facility] FERRITIN SERUM 2021-04-05 10:01:00 Jaun [facility] VITAMIN B12, LEVEL 2021-04-05 10:01:00 Bj Zamorano [facility] FOLATE 2021-04-05 10:01:00 Bj Zamorano [facility] COMP. METABOLIC PANEL 2021-04-05 10:01:00 Caryn Kim [facility] ([id number]) [facility] IRON PANEL 2021-04-05 10:01:00 Jaun [facility] CBC WITH DIFF 2021-04-05 10:01:00 Judy [facility] N-TERMINAL PRO-BNP 2021-04-05 10:01:00 Judy jakob [facility] VITAMIN D, 25-OH 2021-04-05 10:01:00 Bj Zamorano [facility] POCT GLUCOSE (AUTOMATED) 2021-04-05 01:34:00 Caryn Kim [facility] POCT GLUCOSE (AUTOMATED) 2021-04-04 22:16:00 Caryn Kim [facility] VALPROIC ACID, FREE 2021-04-04 19:45:00 Caryn Kim [facility] PROCALCITONIN 2021-04-04 19:45:00 Judy jakob [facility] TRANSTHORACIC ECHO (TTE) 2021-04-04 19:03:47 Caryn Kim [facility] POCT GLUCOSE (AUTOMATED) 2021-04-04 16:51:00 Caryn Kim [facility] POCT GLUCOSE (AUTOMATED) 2021-04-04 12:48:00 Caryn Kim [facility] ACUTE CARE VENOUS BLOOD 2021-04-04 10:17:00 Caryn Kmi [facility] GAS [facility] PHOSPHORUS 2021-04-04 10:01:00 Caryn Kim [facility] MAGNESIUM 2021-04-04 10:01:00 Ozzie Mijares [facility] FERRITIN SERUM 2021-04-04 10:01:00 Bj Zamorano [facility] AMMONIA, PLASMA 2021-04-04 10:01:00 Judy [facility] TROPONIN I 2021-04-04 10:01:00 Judy jakob [facility] COMP. METABOLIC PANEL 2021-04-04 10:01:00 Caryn Kim [facility] ([id number]) [facility] CBC WITH DIFF 2021-04-04 10:01:00 Judy jakob [facility] PROTHROMBIN TIME / INR 2021-04-04 10:01:00 Caryn Kim [facility] N-TERMINAL PRO-BNP 2021-04-04 10:01:00 Caryn Kim [facility] AMMONIA, PLASMA 2021-04-04 04:59:00 Caryn Kim [facility] TROPONIN I 2021-04-04 04:59:00 Caryn Kim [facility] VALPROIC ACID, TOTAL 2021-04-04 04:59:00 Caryn Kim [facility] OSMOLALITY URINE 2021-04-04 04:52:00 Judy jakob [facility] URINE DRUG (IMMUNOASSAY) 2021-04-04 04:52:00 Caryn Kim [facility] SCREEN URINE CULTURE 2021-04-04 04:52:00 Judy jakob [facility] PROTEIN CREAT RATIO URINE 2021-04-04 04:52:00 Caryn Kim [facility] UREA NITROGEN, URINE 2021-04-04 04:52:00 Caryn Kim [facility] SODIUM, URINE RANDOM 2021-04-04 04:52:00 Judy jakob [facility] URINE DRUG (LCMSMS) - 2021-04-04 04:52:00 Judy jakob [facility] SYNTHETIC OPIATES PANEL [facility] POCT GLUCOSE (AUTOMATED) 2021-04-04 04:12:00 Caryn Kim [facility] URINALYSIS 2021-04-04 01:06:00 Shanae Hall [facility] PHOSPHORUS 2021-04-03 23:48:00 Judy [facility] URIC ACID 2021-04-03 23:48:00 Judy [facility] MAGNESIUM 2021-04-03 23:48:00 Judy [facility] THYROID STIMULATING 2021-04-03 23:48:00 Judy jakob [facility] HORMONE [facility] BASIC METABOLIC PANEL 2021-04-03 23:48:00 Ozzie Mijares [facility] (NA, K, CL, CO2, GLUCOSE, Medica l Branch BUN, CREATININE, CA) LIPID PANEL ([id number])(TOTAL 2021-04-03 23:48:00 Caryn Kim [facility] CHOLESTEROL, [facility] TRIGLYCERIDES, HDL) HB ECG ROUTINE & RHYTHM 2021-04-03 20:43:17 Shanae Hall U [facility] STRIP [facility] AMMONIA, PLASMA 2021-04-03 20:04:00 Shanae Hall [facility] TROPONIN I 2021-04-03 20:04:00 Shanae Hall [facility] HEPATIC FUNCTION PANEL 2021-04-03 20:04:00 Shanae Hall [facility] ([id number]) (ALB,T.PRO,BILI Medical Branch T,BU/BC,ALT,AST,ALK PHOS) BASIC METABOLIC PANEL 2021-04-03 20:04:00 Shanae Hall [facility] (NA, K, CL, CO2, GLUCOSE, Medica l Branch BUN, CREATININE, CA) DIFF CONSULT 2021-04-03 20:04:00 Caryn Kim [facility] CBC WITH DIFF 2021-04-03 20:04:00 Shanae Hall [facility] GLYCOSYLATED HEMOGLOBIN 2021-04-03 20:04:00 Caryn Kim [facility] (A1C) [facility] N-TERMINAL PRO-BNP 2021-04-03 20:04:[address] [facility] COVID-19 (ID NOW RAPID 2021-04-03 20:04:00 Shanae Hall [facility] TESTING) Medical Branch LAB ONLY COVID 2021-04-03 20:04:00 Shanae Hall [facility] LACTIC ACID WHOLE BLOOD 2021-04-03 20:03:00 Shanae Hall U [facility] XR CHEST 1 VW 2021-04-03 20:00:10 Shanae Hall [facility] EMERGENCY DEPARTMENT 2021-04-03 05:01:00 Doctor Unassigned, [facility] DOCUMENTS [place] [facility] PROTHROMBIN TIME / INR 2020-09-08 01:55:00 Sigrid Gallagher [facility] ACTIVATED PARTIAL 2020-09-08 01:55:00 Sigrid Gallagher [facility] [facility] URINALYSIS 2020-09-08 01:55:00 Sigrid Gallagher [facility] AMMONIA, PLASMA 2020-09-08 00:59:00 Sigrid Gallagher [facility] POCT GLUCOSE (AUTOMATED) 2020-02-08 07:28:00 Rodriguez Merida [facility] XR CHEST 1 VW 2020-02-08 06:15:50 Rodriguez Merida [facility] URINALYSIS 2020-02-08 03:30:00 Rodriguez Merida [facility] TROPONIN I 2020-02-08 03:29:00 Rodriguez Merida [facility] COMP. METABOLIC PANEL 2020-02-08 03:29:00 Rodriguez Merida [facility] ([id number]) Medical Branch CBC WITH DIFF 2020-02-08 03:29:00 Rodriguez Merida [facility] N-TERMINAL PRO-BNP 2020-02-08 03:29:00 Rodriguez Merida [facility] EKG-12 LEAD 2020-02-08 03:25:41 Rodriguez Merida [facility] POCT GLUCOSE(AGE 2020-02-08 03:21:00 Rodriguez Merida [facility] [id number]) [facility] XR CHEST 1 VW COVID 2020-01-30 22:00:27 Dinorah Harry [facility] COVID-19 (ID NOW RAPID 2020-01-30 21:06:00 Dinorah Harry [facility] TESTING) [facility] ACUTE CARE VENOUS BLOOD 2020-01-30 20:44:00 Dinorah [facility] LIPASE 2020-01-30 20:41:00 Dinorah Harry [facility] TROPONIN I 2020-01-30 20:41:00 Dinorah Harry [facility] HEPATIC FUNCTION PANEL 2020-01-30 20:41:00 Dinorah Harry [facility] ([id number]) (ALB,T.PRO,BILI [facility] [place] [facility] T,BU/BC,ALT,AST,ALK PHOS) BASIC METABOLIC PANEL 2020-01-30 20:41:00 Dinorah Harry [facility] (NA, K, CL, CO2, GLUCOSE, Medica l Branch BUN, CREATININE, CA) CBC WITH DIFF 2020-01-30 20:41:00 Dinorah Harry [facility] URINALYSIS 2020-01-30 20:41:00 Dinorah Harry [facility] N-TERMINAL PRO-BNP 2020-01-30 20:41:00 Dinorah Harry [facility] ADC / LCC - DRUG SCREEN 2020-01-30 20:41:00 Dinorah Harry [facility] TRIAGE [facility] EKG-12 LEAD 2020-01-30 20:21:42 Dinorah Harry [facility] CONSENT/REFUSAL FOR 2020-01-30 19:20:03 Doctor Steve Myers [facility] DIAGNOSIS AND TREATMENT [facility] [facility] XR CHEST 2 VW 2019-12-16 01:47:16 Oscar Rdz [facility] CT ABDOMEN PELVIS W 2019-12-16 01:45:39 Oscar Rdz [facility] CONTRAST [facility] PROTHROMBIN TIME / INR 2019-12-16 00:33:00 [facility] URINALYSIS 2019-12-16 00:33:00 Oscar Rdz [facility] COVID-19 (ID NOW RAPID 2019-12-16 00:33:00 [facility] TESTING) Medical Branch POCT TEST 2019-12-16 00:26:00 Oscar Rdz [facility] LIPASE 2019-12-16 00:19:00 Oscar Rdz [facility] TROPONIN I 2019-12-16 00:19:00 Oscar Rdz [facility] HEPATIC FUNCTION PANEL 2019-12-16 00:19:00 Oscar Rzd [facility] ([id number]) (ALB,T.PRO,BILI Medical Branch T,BU/BC,ALT,AST,ALK PHOS) BASIC METABOLIC PANEL 2019-12-16 00:19:00 Oscar Rdz [facility] (NA, K, CL, CO2, GLUCOSE, Medica l Branch BUN, CREATININE, CA) CBC WITH DIFFERENTIAL 2019-12-16 00:19:[address] [facility] N-TERMINAL PRO-BNP 2019-12-16 00:19:00 Oscar Rdz [facility] EKG-12 LEAD 2019-12-16 00:14:24 Oscar Rdz [facility] CONSENT/REFUSAL FOR 2019-12-16 00:01:47 Doctor Unagayle [facility] DIAGNOSIS AND TREATMENT [facility] [place] CT ABDOMEN PELVIS W 2019-11-30 19:02:08 Singer Vipul [facility] CONTRAST Medical Branch LIPASE 2019-11-30 17:40:00 Singer [facility] COMP. METABOLIC PANEL 2019-11-30 17:40:00 Vipul Whitehead [facility] ([id number]) [facility] [place] CBC WITH DIFFERENTIAL 2019-11-30 17:40:00 Singer [facility] URINALYSIS 2019-11-30 17:40:00 Singer [facility] NOTICE OF PRIVACY 2019-11-30 17:11:40 Doctor Unassigned, [facility] PRACTICES [place] [facility] ASSIGNMENT OF BENEFITS 2019-11-30 17:11:15 Doctor Unassigned, [facility] Name [facility] [place] POCT GLUCOSE (AUTOMATED) 2019-11-16 11:02:00 Randi Tapia Lenka U [facility] POCT GLUCOSE (AUTOMATED) 2019-11-16 03:12:00 Randi Tapia U [facility] EXTRA TUBE LAV 2019-11-16 01:40:00 Howell, [facility] EXTRA TUBE LT. BLUE 2019-11-16 01:40:00 Lynda Kristin [facility] EXTRA TUBE RED 2019-11-16 01:40:00 Howell, [facility] CREATINE KINASE 2019-11-16 01:38:00 Kurtis Haddad [facility] MAGNESIUM 2019-11-16 01:38:00 Kurtis Haddad [facility] PROLACTIN 2019-11-16 01:38:00 Boo [facility] TROPONIN I 2019-11-16 01:38:00 Boo Kurtis [facility] BASIC METABOLIC PANEL 2019-11-16 01:38:00 Kurtis Haddad [facility] (NA, K, CL, CO2, GLUCOSE, [facility] BUN, CREATININE, CA) POCT GLUCOSE (AUTOMATED) 2019-11-15 18:50:00 Tapia, Randi [facility]UB 2019-11-15 16:40:00 [facility] PO[facility] GLUCOSE (AUTOMATED) 2019-11-15 13:01:00 Tapia, Randi Lenka U [facility] BASIC METABOLIC PANEL 2019-11-15 09:36:00 Trevin Ward [facility] (NA, K, CL, CO2, GLUCOSE, Medica l Branch BUN, CREATININE, CA) CBC WITH DIFFERENTIAL 2019-11-15 09:36[facility] WITH [facility]FFERENTIAL 2019-11-15 09:36:00 [facility] POCT GLUCOSE (AUTOMATED) 2019-11-15 02:59:00 Tapia, Randi Lenka U [facility] POCT GLUCOSE (AUTOMATED) 2019-11-14 21:18:00 Tapia, Randi Lenka U [facility] XR KUB 2019-11-14 17:04:00 [facility] POCT GLUCOSE (AUTOMATED) 2019-11-14 16:44:00 Tapia, Randi Lenka U [facility] MAGNESIUM 2019-11-14 10:03:00 Trevin Ward [facility] HEPATIC FUNCTION PANEL 2019-11-14 10:03:00 Trevin Ward [facility] ([id number]) (ALB,T.PRO,BILI Medical Branch T,BU/BC,ALT,AST,ALK PHOS) BASIC METABOLIC PANEL 2019-11-14 10:03:00 Trevin Ward [facility] (NA, K, CL, CO2, GLUCOSE, Medica l Branch BUN, CREATININE, CA) CBC WITH DIFFERENTIAL 2019-11-14 10:03:00 Justine [facility] PROTHROMBIN TIME / INR 2019-11-14 10:03:00 Trevin Ward [facility] POCT GLUCOSE (AUTOMATED) 2019-11-14 03:05:00 Randi Tapia [facility] CBC WITH DIFFERENTIAL 2019-11-13 23:03:00 Justine [facility] POCT GLUCOSE (AUTOMATED) 2019-11-13 22:57:00 Randi Tapia [facility] XR KUB 2019-11-13 17:01:00 [facility] POCT GLUCOSE (AUTOMATED) 2019-11-13 16:52:00 Randi Tapia [facility] EKG-12 LEAD 2019-11-13 16:46:33 Randi Tapia [facility] PROFILE / HEMOGRAM 2019-11-13 15:06:00 Ed General acute hospital POCT GLUCOSE (AUTOMATED) 2019-11-13 12:54:[address] [facility] MAGNESIUM 2019-11-13 09:25:00 Ed [facility] FERRITIN SERUM 2019-11-13 09:25:00 Kurtis Haddad [facility] HEPATIC FUNCTION PANEL 2019-11-13 09:25:00 [facility] ([id number] (ALB,T.PRO,[facility] T,BU/BC,ALT,AST,ALK PHOS) BASIC METABOLIC PANEL 2019-11-13 09:25:00 Trevin Ward [facility] (NA, K, CL, CO2, GLUCOSE, Medica l Branch BUN, CREATININE, CA) PROFILE / HEMOGRAM 2019-11-13 09:25:00 Ed General acute hospital PROTHROMBIN TIME / INR 2019-11-13 09:25:00 Ed [facility] POCT GLUCOSE (AUTOMATED) 2019-11-13 04:32:00 Bj Zamorano [facility] PROFILE / HEMOGRAM 2019-11-13 03:14:00 [facility] ([facility]OMATED) 2019-11-13 00:42:[address] [facility] POCT GLUCOSE (AUTOMATED) 2019-11-12 21:27:[address] [facility] MAGNESIUM 2019-11-12 21:15:00 [facility]OLIC PANEL 2019-11-12 21:15:00 Trevin Ward [facility] (NA, K, CL, CO2, GLUCOSE, Medica l Branch BUN, CREATININE, CA) PROFILE / HEMOGRAM 2019-11-12 21:15:00 Ed General acute hospital TRANSFUSE PLATELETS 2019-11-12 17:56:15 Dennise [facility] POCT GLUCOSE (AUTOMATED) 2019-11-12 16:53:[address] [facility] PROFILE / HEMOGRAM 2019-11-12 15:58:00 [facility] PREP[facility]ATELETS 2019-11-12 15:46:33 Dennise [facility] TRANSFUSE PACKED RBC 2019-11-12 15:36:45 Geovanna Erma [facility] CT ANGIOGRAM 2019-11-12 14:33:11 Dennise [facility] ABDOMEN/PELVIS Medical Branch PREPARE PACKED RBC 2019-11-12 13:34:31 [facility]) 2019-11-12 12:38:[address] [facility] TRANSFUSE PACKED RBC 2019-11-12 12:36:06 Erma Austin [facility] POCT GLUCOSE (AUTOMATED) 2019-11-12 10:06:[address] [facility] POCT GLUCOSE (AUTOMATED) 2019-11-12 10:04:[address] [facility] MAGNESIUM 2019-11-12 09:59:00 Ed [facility] HEPATIC FUNCTION PANEL 2019-11-12 09:59:00 Trevin Ward [facility] ([id number]) (ALB,T.PRO,BILI Medical Branch T,BU/BC,ALT,AST,ALK PHOS) BASIC METABOLIC PANEL 2019-11-12 09:59:00 Trevin Ward [facility] (NA, K, CL, CO2, GLUCOSE, Medica l Branch BUN, CREATININE, CA) CBC WITH DIFFERENTIAL 2019-11-12 09:59:[address] [facility] PROTHROMBIN TIME / INR 2019-11-12 09:59:00 Trevin Ward [facility] POCT GLUCOSE (AUTOMATED) 2019-11-12 04:35:00 Bj Zamorano [facility] CBC WITH DIFFERENTIAL 2019-11-12 04:28:[address] [facility] POCT GLUCOSE (AUTOMATED) 2019-11-12 01:14:00 Bj Zamorano [facility] CBC WITH DIFFERENTIAL 2019-11-11 21:54:00 [facility] ([facility]OMATED) 2019-11-11 21:49:00 Bj Zamorano [facility] TRANSFUSE PACKED RBC 2019-11-11 21:25:36 Trevin Ward [facility] CLOSTRIDIUM DIFFICILE 2019-11-11 20:50:[address] [facility] PREPARE PACKED RBC 2019-11-11 18:52:37 Trevin Ward [facility] HB ABO GROUPING 2019-11-11 17:58:00 Trevin Ward [facility] POCT GLUCOSE (AUTOMATED) 2019-11-11 17:28:00 Bj Zamorano [facility] POCT GLUCOSE (AUTOMATED) 2019-11-11 16:24:00 Bj Zamorano [facility] CT ABDOMEN PELVIS W 2019-11-11 15:05:30 Mitul Cedeño [facility] CONTRAST [facility] CBC WITH DIFFERENTIAL 2019-11-11 14:12:[address] [facility] FIBRINOGEN 2019-11-11 14:12:00 Amrani, [facility] POCT GLUCOSE (AUTOMATED) 2019-11-11 12:45:[address] [facility] PHOSPHORUS 2019-11-11 10:42:00 Judy [facility] COMP. METABOLIC PANEL 2019-11-11 10:42:00 Judy [facility] ([id number]) [facility] [place] N-TERMINAL PRO-BNP 2019-11-11 10:42:00 Judy [facility] CBC WITH DIFFERENTIAL 2019-11-11 09:32:[address] [facility] POCT GLUCOSE (AUTOMATED) 2019-11-11 09:29:00 Bj Zamorano [facility] MAGNESIUM 2019-11-11 05:28:00 Ed [facility] HEPATIC FUNCTION PANEL 2019-11-11 05:28:00 Ed Trevin [facility] ([id number]) (ALB,T.PRO,BILI Medical Branch T,BU/BC,ALT,AST,ALK PHOS) BASIC METABOLIC PANEL 2019-11-11 05:28:00 Ed [facility] (NA, K, CL, CO2, GLUCOSE, Medica l Branch BUN, CREATININE, CA) PROTHROMBIN TIME / INR 2019-11-11 05:28:00 Trevin Ward [facility] CBC WITH DIFFERENTIAL 2019-11-11 05:27:[address] [facility] POCT GLUCOSE (AUTOMATED) 2019-11-11 05:02:[address] [facility] POCT GLUCOSE (AUTOMATED) 2019-11-11 02:27:00 Bj Zamorano [facility] XR ABDOMEN 1 VW 2019-11-11 02:15:21 Ed [facility] MRSA / MSSA SCREEN BY 2019-11-11 01:23:00 Trevin Ward [facility] PCR, NARES [facility] ALPHA FETOPROTEIN 2019-11-10 23:31:00 Dirk Redding [facility] C [facility] IRON PANEL 2019-11-10 23:31:00 Kurtis Haddad [facility] CBC WITH DIFFERENTIAL 2019-11-10 23:31:[address] [facility] LACTIC ACID WHOLE BLOOD 2019-11-10 23:31:00 Trevin Ward [facility] POCT GLUCOSE (AUTOMATED) 2019-11-10 21:30:00 Bj Zamorano [facility] POCT GLUCOSE (AUTOMATED) 2019-11-10 16:10:00 Bj Zamorano [facility] POCT GLUCOSE (AUTOMATED) 2019-11-10 12:52:00 Bj Zamorano [facility] LACTIC ACID WHOLE BLOOD 2019-11-10 10:28:00 Bj Zamorano [facility] POCT GLUCOSE (AUTOMATED) 2019-11-10 09:17:00 Bj Zamorano [facility] HEPATIC FUNCTION PANEL 2019-11-10 05:57:00 Bj Zamorano [facility] ([id number]) (ALB,T.PRO,BILI Medical Branch T,BU/BC,ALT,AST,ALK PHOS) BASIC METABOLIC PANEL 2019-11-10 05:57:00 Bj Zamorano [facility] (NA, K, CL, CO2, GLUCOSE, Medica l Branch BUN, CREATININE, CA) CBC WITH DIFFERENTIAL 2019-11-10 05:57:[address] [facility] GLYCOSYLATED HEMOGLOBIN 2019-11-10 05:57:00 Bj Zamorano [facility] (A1C) [facility] N-TERMINAL PRO-BNP 2019-11-10 05:57:00 Caryn Kim [facility] LACTIC ACID WHOLE BLOOD 2019-11-10 05:56:00 Bj Zamorano [facility] POCT GLUCOSE (AUTOMATED) 2019-11-10 04:07:00 Bj Zamorano [facility] XR CHEST 1 VW 2019-11-10 02:46:27 Mihai [facility] URINE CULTURE 2019-11-10 02:31:00 Vincent, [facility] BASIC METABOLIC PANEL 2019-11-10 02:02:00 Beatriz Holm [facility] (NA, K, CL, CO2, GLUCOSE, Medica l Branch BUN, CREATININE, CA) LACTIC ACID WHOLE BLOOD 2019-11-10 02:02:00 Khadijah Olivares [facility] URINALYSIS 2019-11-10 00:31:00 Khadijah Olivares [facility] EKG-12 LEAD 2019-11-10 00:30:02 Rodriguez Merida [facility] CT ABDOMEN PELVIS W 2019-11-10 00:23:50 Khadijah Olivares [facility] CONTRAST [facility] EKG-12 LEAD 2019-11-09 23:53:36 Khadijah Olivares [facility] BLOOD CULTURE SCREEN 2019-11-09 23:18:00 Khadijah Olivares [facility] LACTIC ACID WHOLE BLOOD 2019-11-09 23:17:00 Khadijah Olivares [facility] BLOOD CULTURE SCREEN 2019-11-09 23:16:00 Khadijah Olivares [facility] LIPASE 2019-11-09 23:15:00 Khadijah Olivares [facility] COMP. METABOLIC PANEL 2019-11-09 23:15:00 Khadijah Olivares [facility] ([id number]) [facility] PROTHROMBIN TIME / INR 2019-11-09 23:15:00 Khadijah Olivares [facility] ACTIVATED PARTIAL 2019-11-09 23:15:00 Khadijah Olivares [facility] THRMPLAS ROMAN [facility] HB ABO GROUPING 2019-11-09 23:15:00 Khadijah Olivares [facility] CBC WITH DIFFERENTIAL 2019-11-09 23:15:[address] [facility] CORONAVIRUS COVID-19 2019-11-09 23:15:00 Khadijah Olivares [facility] EMERGENCY DEPARTMENT 2019-11-09 05:01:00 Doctor Unassigned, [facility] DOCUMENTS [place] [facility] HOSPITAL ADMISSION 2019-11-09 05:01:00 Doctor Unassigned, [facility] Name Medical Branch [facility]-09 05:01:00 Doctor Unassigned, [facility] MEDICARE PATIENTS RIGHTS [facility] [place] IMPORTANT MESSAGE TOTAL IRON BINDING 2019-10-07 19:40:00 Ursula Dailey [facility] HEPATIC FUNCTION PANEL 2019-10-07 19:40:00 Ursula Dailey [facility] ([id number]) (ALB,T.PRO,BILI Medical Branch T,BU/BC,ALT,AST,ALK PHOS) BASIC METABOLIC PANEL 2019-10-07 19:40:00 Ursula Dailey [facility] (NA, K, CL, CO2, GLUCOSE, Medica l Branch BUN, CREATININE, CA) ALPHA FETOPROTEIN 2019-10-07 19:40:00 Ursula Dailey [facility] CBC WITH DIFFERENTIAL 2019-10-07 19:40:[address] [facility] PROTHROMBIN TIME / INR 2019-10-07 19:40:00 Ursula Dailey [facility] ACTIVATED PARTIAL 2019-10-07 19:40:00 Ursula Dailey [facility] THRMPLAS [facility] XR ABDOMEN 2 VW 2019-10-07 19:33:21 Blanco Soria [facility] US ABDOMEN COMPLETE 2019-10-07 19:23:36 Blanco Soria [facility] CONSENT/REFUSAL FOR 2019-10-07 18:46:28 Doctor Unasscasandra, [facility] DIAGNOSIS AND TREATMENT [facility]ENEFITS 2019-10-07 18:46:09 Doctor Unasscasandra, [facility] PO[facility] GLUCOSE (AUTOMATED) 2019-08-01 13:51:[address] [facility] POCT GLUCOSE (AUTOMATED) 2019-08-01 11:39:00 Jony Roque [facility] POCT GLUCOSE (AUTOMATED) 2019-08-01 10:30:[address] [facility] CORTISOL AM 2019-08-01 09:45:00 [facility] BASIC METABOLIC PANEL 2019-08-01 09:45:[address] [facility] (NA, K, CL, CO2, GLUCOSE, Medica l Branch BUN, CREATININE, CA) PROCALCITONIN 2019-08-01 09:45:00 Cristina [facility] POCT GLUCOSE (AUTOMATED) 2019-08-01 09:20:00 [facility] PO[facility] GLUCOSE (AUTOMATED) 2019-08-01 08:28:00 [facility] POCT GLUCOSE (AUTOMATED) 2019-08-01 07:30:00 Cristina [facility] POCT GLUCOSE (AUTOMATED) 2019-08-01 06:24:00 [facility] OSMOLALITY SERUM 2019-08-01 05:50:00 Jer [facility] BETA HYDROXY-BUTYRATE 2019-08-01 05:50:[address] [facility] BASIC METABOLIC PANEL 2019-08-01 05:50:[address] [facility] (NA, K, CL, CO2, GLUCOSE, Medica l Branch BUN, CREATININE, CA) ADC,CLC OR LCC ONLY - 2019-08-01 05:50:[address] [facility] INFLUENZA A & B DIRECT Medical [facility] ranch ANTIGEN AMMONIA, PLASMA 2019-08-01 05:49:00 rCistina [facility] POCT GLUCOSE (AUTOMATED) 2019-08-01 05:29:00 Jony Roque [facility] POCT GLUCOSE (AUTOMATED) 2019-08-01 04:33:00 [facility] POCT GLUCOSE (AUTOMATED) 2019-08-01 03:53:00 Marnie Randle [facility] POCT GLUCOSE (AUTOMATED) 2019-08-01 03:02:00 Marnie Randle [facility] XR CHEST 1 VW 2019-08-01 02:44:56 Jer [facility] PHOSPHORUS 2019-08-01 02:06:00 Jer [facility] MAGNESIUM 2019-08-01 02:06:00 [facility] THYROID STIMULATING 2019-08-01 02:06:00 [facility] [place] [facility] COMP. METABOLIC PANEL 2019-08-01 02:06:00 [facility] ([id number] CBC WITH DIFFERENTIAL 2019-08-01 02:06:00 [facility] GLYCOSYLATED HEMOGLOBIN 2019-08-01 02:06:00 [facility] (A1C) [facility] ACUTE CARE VENOUS BLOOD 2019-08-01 02:05:00 [facility] GAS [facility] URINALYSIS 2019-08-01 01:58:00 [facility] Computed tomography of 2017-10-30 00:00:00 ACACIA [facility]UMAR [facility] Patients [facility] Plan of Care Planned Activity Planned Date [...] Test 00:00:00 (procedure) [code = Medical Center 43816926] Future Scheduled [address] [facility] Test 00:00[facility]00 [facility] [code = 352165537] Future Scheduled [address] [facility] - Test 00:00:00 0-64 YRS (1 of 1 - Medical C enter PPSV23) [code = PNEUMOCOCCAL VACCINE 0-64 YRS (1 of 1 - PPSV23)] Future Scheduled [address] [facility] - Test 00:00:00 [facility] breast (procedure) [code = 624896248] Future Scheduled [address] [facility] - Test 00:00:00 malignant neoplasm of [facility] colon (procedure) [code = 608909330] Future Scheduled DIABETES: [facility]AL [facility] EXAM [code = DIABETES: RETINAL EYE EXAM] Future Scheduled DIABETIC FOOT EXAM [facility] Test [code = DIABETIC FOOT EXAM] Future Scheduled COVID-19 VACCINE (1) [facility] [code = COVID-19 VACCINE (1)] Future Scheduled Scre[facility] Test malignant neoplasm of cervix (procedure) [code = 586086025] Future Scheduled BREAST CANCER [facility] Test SCREENING [code = BREAST CANCER [...] Date/Time Type Type Clinicians Facility Department ID 2021-05-15 Emergency [facility] [id number] Univers 00:19:12 ity [facility] 2021-05-13 Emergency [facility] [id number] Univers 01:31:24 ity [facility] 2021-05-11 Emergency [facility] [id number] Univers 09:09:35 ity [facility] 2021-05-11 Emergency [facility] [id number] Univers 07:32:28 ity [facility] 2021-05-09 2021-05-09 Outpatient FADIA CRUZ MDA MDA [id number] 15:16:02 15:16:02 YUN perez 2021 2021-05-06 Inpatient UR DAMIAN, ANUJ [facility]ER[facility]NDEZ [facility] [id number] 11:48:00 11:13:00 Brenden perez 2021-05-05 2021-05-05 Inpatient EL JIM FERNANDEZ [id number] 16:30:38 16:44:50 Brenden o n 2021-05-05 2021-05-05 Inpatient EL MDA MDA [id number] 13:15:32 13:44:54 Brenden perez 2021 2021 Outpatient FADIA CRUZ MDA MDA [id number] MD 10:00:00 11:47:00 YUN perez 2021-04-10 2021-04-10 Transition Lazara Cardenas [id number] Univers 00:00:00 00:00:00 of Care Yas Valdezy [id number] it y of [place] [id number] [facility] [id number] [facility] 403 Branch 2021-04-03 2021-04-09 [facility] Rafael Shanae Heber [facility] [id number] Univers 14:38:00 19:07:00 Encounter Ozzie Mijares [id number] ity of Caryn Kim [id number] [facility] [id number] [facility] 081 Branch 2021-03-21 2021-03-21 Outpatient FADIA JANSEN, MDA MDA [id number] 09:00:00 23:59:00 GILBERTO perez 2021-03-21 2021-03-21 Outpatient FADIA JANSEN, MDA MDA [id number] 07:26:48 08:59:00 GILBERTO perez 2021-02-05 2021-02-06 Outpatient ER [facility] Emergency [id number] 08:34:00 14:46:00 SHIRA perez 2020-12-25 2020-12-25 Outpatient FADIA SIMENTAL MDA MDA [id number] 15:22:07 15:22:07 GATITO perez 2020-12-07 2020-12-07 Outpatient FADIA CRUZ, MDA MDA [id number] 14:09:22 14:31:49 YUN perez 2020-11-30 2020-12-03 Inpatient ER BELLAMY-GRICELDA [facility] [id number] 08:31:00 17:06:00 ROGELIO Perez 2020-12-02 2020-12-02 Inpatient FADIA KELLY MDA MDA [id number] 15:37:00 17:05:23 Yudelka ROGELIO Alvawilly sheffield n 2020-11-30 2020-11-30 Inpatient FADIA LIGHT, MDA MDA [id number] 14:19:17 14:22:52 WILY perez 2020-11-29 2020-11-29 Outpatient FADIA CRUZ, MDA MDA [id number] MD 12:50:42 23:59:00 YUN perez 2020-11-29 2020-11-29 Outpatient FADIA JANSEN, MDA MDA [id number] MD 13:43:09 13:43:09 GILBERTO perez 2020-11-29 2020-11-29 Outpatient FADIA JANSEN, MDA MDA [id number] MD 07:02:33 12:49:00 GILBERTO perez 2020-11-27 2020-11-27 Outpatient FADIA ELI III, MDA MDA [id number] 08:30:00 23:59:00 CRISTINA perez 2020-11-27 2020-11-27 Outpatient FADIA ELI III, MDA MDA [id number] 11:13:43 12:18:50 CRISTINA perez 2020-10-19 2020-10-19 Outpatient ER ISAIAS, MDA Emergency [id number] 06:37:00 12:15:00 SHIRA perez 2020-09-07 2020-09-[address] [facility] 1.2.318.634 [id number] [facility] 18:32:00 20:31:00 Sigrid Ortiz 350.1.13.10 [facility] 4.2.7.2.686 [facility] [phone] [facility] javier 084 [address] 2020-08-10 2020-08-10 Outpatient FADIA CRUZ, MDA MDA [id number] MD 13:49:49 15:58:39 YUN perez 2020-08-09 2020-08-09 Outpatient FADIA JANSEN, MDA MDA [id number] 11:38:38 23:59:00 GIBLERTO perez 2020-08-09 2020-08-09 Outpatient FADIA JANSEN MDA MDA [id number] MD 12:44:44 12:44:44 GILBERTO Brendenlore perez 2020-06-22 2020-06-22 Outpatient FADIA CRUZ MDA MDA [id number] MD 13:55:28 15:15:41 YUN Brendenlore perez 2020-06-15 2020-06-15 Outpatient FADIA CRUZ MDA MDA [id number] MD 00:00:00 00:00:00 YUN perez 2020-05-31 2020-05-31 Outpatient FADIA CRUZ MDA MDA [id number] MD 10:51:07 10:51:07 YUN perez 2020-05-18 2020-05-18 Outpatient FADIA JANSEN MDA MDA [id number] MD 06:45:00 23:59:00 GILBERTO perez 2020-05-18 2020-05-18 Outpatient FADIA JANSEN MDA MDA [id number] MD 09:59:46 09:59:46 GILBERTO perez 2020-02-07 2020-02-08 Emergency [facility] 1.2.278.850 [id number] 22:06:56 03:30:00 Rodriguez Ortiz 350.1.13.[address] [place] [address] [phone] 2020-02-07 2020-02-08 Emergency [facility]ly [facility] [id number] [id number] [facility] 22:06:56 03:30:00 Rodriguez Ortiz 350.1.13.10 ity [facility] 4.2.7.2.686 [facility] [phone] [place] [address] [address] 2020-02-06 2020-02-06 Telephone MADALYN Barros 1.2.840.114 [id number] 00:00:00 00:00:00 Gloria RODRIGUEZ 350.1.13.10 [facility] 4.2.7.2.686 [id number] 019 2020-02-06 2020-02-06 Telephone Momo [facility] 1.2.958.580 [id number] 00:00:00 00:00:00 [facility] 350.1.13.10 [place] 4.2.7.2.686 Professio [phone] nal 044 Office Building [facility] 2020-02-06 2020-02-06 Telephone MADALYN Barros 1.2.840.114 [id number] Univers 00:00:00 00:00:00 Gloria RODRIGUEZ 350.1.13.10 ity of [facility] 4.2.7.2.686 Robert as [phone] [address] 2020-02-06 2020-02-06 [facility]phone [facility] 1.2.091.398 [id number] Univers 00:00:00 00:00:00 [facility] 350.1.13.10 i ty of [place] 4.2.7.2.686 Robert as Professio [phone] Co dic[address] Office Building [facility] 2020-02-05 2020-02-05 Outpatient R MARTI [facility] [id number] Univers 16:20:00 16:20:00 NICOLA ity [facility] 2020-02-05 2020-02-05 Laboratory Lab, [facility] 1.2.840.114 [id number] 12:32:06 12:52:06 Only Fam Pob I Health 350.1.13.10 [place] 4.2.7.2.686 Professio [phone] [place] [address] Office Building [facility] 2020-02-05 2020-02-05 Laboratory Lab, [facility] Fam Pob I [facility] 1.2. 840.114 [id number] Univers 12:32:06 12:52:06 Only Nicola [facility] 350.1.13.10 ity of [place] 4.2.7.2.686 Robert as Professio [phone] Co dical [address] Office Building [facility] 2020-02-05 2020-02-05 Outpatient R [facility] [id number] -[id number] Univers 12:00:00 12:00:00 [id number] ity [facility] 2020-02-05 2020-02-05 Outpatient R [facility] [id number] Univers 12:00:00 12:00:00 ity [facility] 2020-01-30 2020-01-30 [facility] 1.2.222.351 [id number] 14:49:44 18:01:00 Dinorah Anderson Angel 350.1.13.10 [place] 4.2.7.2.686 [place] [id number] 084 2020-01-30 2020-01-30 Emergency Kamryn [facility] 1.2.545.486 [id number] [facility] 14:49:44 18:01:00 Dinorah Anderson Angel 350.1.13.10 ity of [place] 4.2.7.2.686 [facility] [phone] [facility] 084 [address] 2020-01-30 2020-01-30 Orders Doctor BERGMAN 1.2.840.114 [id number] 00:00:00 00:00:00 Only Unassigned, DES 350.1.13.10 [place] [facility] 4.2.7.2.68 [id number] 009 2020-01-30 2020-01-30 Orders Doctor BERGMAN 1.2.840.114 [id number] Univers 00:00:00 00:00:00 Only Unassigned, DES 350.1.13.10 ity of [place] [facility] 4.2.7.2.686 [facility] [phone] [facility] [address] [place] 2020-01-04 2020-01-04 Outpatient FADIA NANCY, MDA MDA [id number] 00:00:00 00:00:00 YUN perez 2020-01-03 2020-01-03 Outpatient FADIA GARCIA, MDA MDA [id number] 00:00:00 00:00:00 RICKIE perez 2020-01-03 2020-01-03 Outpatient FADIA JANSEN, MDA MDA [id number] 00:00:00 00:00:00 GLIBERTO perez 2020-01-01 2020-01-01 Emergency MDA MDA [id number] 08:14:08 08:14:08 Brenden perez 2019-12-15 2019-12-16 Emergency Oscar Rdz [facility] 1.2.840.114 [id number] 19:10:30 01:03:00 T Angel 350.1.13.10 [place] 4.2.7.2.686 [place] [phone] 4 2019-12-15 2019-12-16 Emergency X OSCAR RDZ [facility] ERT [id number] Univers 19:10:30 01:03:00 itsanam [facility] 2019-12-15 2019-12-16 Emergency Oscar Rdz [facility] 1.2.840.114 [id number] Univers 19:10:30 01:03:00 Jim Ortiz 350.1.13.10 i ty of [place] 4.2.7.2.686 [facility] [phone] [address] 2019-12-02 2019-12-02 Emergency ER KOREY [facility] Emergency [id number] 07:39:47 10:44:00 VIKASH Brendenlore perez 2019-11-30 2019-11-30 Emergency [facility] 1.2.031.037 [id number] 12:20:39 14:51:00 Vipul Ortiz 350.1.13.10 [place] 4.2.7.2.686 [place] [phone] [facility] 2019-11-30 2019-11-30 Emergency X [facility] ERT [id number] Univers 12:20:39 14:51:00 VIPUL rooseveltsanam [facility] 2019-11-30 2019-11-30 Emergency [facility] 1.2.940.731 [id number] Univers 12:20:39 14:51:00 Vipul Angel 350.1.13.10 i ty of [place].7.2.686 [place] [phone] [address] 2019-11-17 2019-11-17 Transition Lazara Cardenas 1.2.840.114 [id number] 00:00:00 00:00:00 of Care Yas Espinosa 350.1.13.10 [place] [phone] 403 2019-11-17 2019-11-17 Transition Lazara Cardenas 1.2.840.114 [id number] Univers 00:00:00 00:00:00 of Care Yas Espinosa 350.1.13.10 it y of [place] 4.2.7.2.686 [place] [phone] [facility] [address] 2019-11-09 2019-11-16 [id number] Univers 17:51:10 13:56:00 ity of [facility] 2019-11-09 2019-11-16 Hospital Khadijah Olivares 1.2.840.1 [id number] Univers 17:51:10 13:56:00 Encounter SagrarioBeatriz gee Des 350.1.13.10 ity of 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 Supervisor Yovany, Yaya Lab Main [facility] 1.2.8 40.114 [id number] Univers 13:48:12 14:03:12 Visit [facility] [place] 350.1.13.10 ity of [place] 4.2.7.2.686 [place] Professio [phone] Co dical nal 353 [facility] 2019-10-07 2019-10-07 Outpatient R [facility] [id number] Univers 13:39:15 13:39:00 ity of [facility] 2019-10-07 2019-10-07 [facility] 1.2.840.114 [id number] Univers 13:39:00 13:39:00 Encounter Naomie Ortiz 350.1.13.10 ity of [place] 4.2.7.2.686 [facility] [phone] [facility] 8[address] [place] 2019-08-04 2019-08-04 [facility] [id number] 13:42:00 13:42:00 [facility] 2019-08-03 2019-08-03 Transition Lazara Bernal 1.2.840.114 [id number] Univers 00:00:00 00:00:00 of Sven Espinosa 350.1.13.10 it y of [place] 4.2.7.2.686 [facility] [phone] [facility] [address] 2019-08-02 2019-08-02 Out[facility] [id number] 08:30:00 08:30:00 [facility] 2019-07-31 2019-08-01 Inpatient X CRISTINA [facility] [id number] Univers 19:42:06 16:46:00 SHEBEY randy [facility] 2019-07-31 2019-08-01 [facility] Randleann [facility] 1.2.840.1 14 [id number] Univers 19:42:06 16:46:00 Encounter Jony Roque 350.1.13.10 ity Jaz 4.2.7.2.686 [facility] [id number] [place] [address] [address] 2017-11-17 2017-11-17 Outpatient FADIA NAIR MDA [facility] [id number] 00:00:00 00:00:00 VIKASH perez 2017-10-30 2017-10-31 Discharged ER ACACIA KUMAR [facility] A[id number] [facility] 01:06:00 13:30:00 Inpatient 07 [facility] - (obs) Patient s [facility] 2017-05-23 [id number] 19:37:00 01:16:00 Emergency 41 [facility] - Room Patient s [facility] 2017-05-19 2017-05-[facility] [id number] 17:55:00 02:48:00 Emergency 74 [facility] - Room Patient s [facility] 2017-04-18 2017-04-18 Registered ER ANDRES [facility] A00 [id number] [facility] [address] 01:09:00 01:09:[address] [facility] Patient [facility] 2017-01-06 2017-01-06 Departed [facility] [id number] [facility] [address] 12:49:00 19:28:00 Emergency 03 [facility] Results Test Description Test Time Test Comments Results Result Comments Source POCT GLUCOSE (AUTOMATED) 2021-04-09 12:49:00 Test Item Value Reference Range Interpretation Comme nts POCT GLU (test code = 0960768354) 191 mg/dL 70-110 H Lab Interpretation (test code = 58477-7) Abnormal [facility] METABOLIC PANEL (NA, K, CL, CO2, GLUCOSE, BUN, CREATININE, CA)2021-04-09 10:39:29 Test Item Value Reference Range Interpretation Comments NA (test code = 135 mmol/L 135-145 7950389056) K (test code = 3.7 mmol/L 3.5-5.0 3950629624) CL (test code = 95 mmol/L 98-108 L 1808692546) CO2 TOTAL (test code = 34 mmol/L 23-31 H 8441009231) AGAP (test code = 2-16 5494642542) BUN (test code = 35 mg/dL 7-23 H 1984411952) GLUCOSE (test code = 260 mg/dL 70-110 H 8561811798) CREATININE (test code = 1.22 mg/dL 0.50-1.04 H 1219816514) CALCIUM (test code = 8.4 mg/dL 8.6-10.6 L 4775509561) eGFR (test code = mL/min/1.73m2 2935791896) NU (test code = NU) Association of Glomerular Filtration Rate (GFR) and Staging of Kidney Disease* + --+ --+ ------+| GFR (mL/min/1.73 m2) ?| With Kidney Damage ?| ?Without Kidney Damage+ --------+ --------+ +| ?>90 ?| ?Stage one ?| ? Normal ?+ ---+ ---+ -------+| ?60-89 ?| ?Stage two ?| ? Decreased GFR ? + --+ --+ ------+| ?30-59 ?| ?Stage three ?| ? Stage three ? + --+ --+ ------+| ?15-29 ?| ?Stage four ? | ? Stage four ?+ ---+ ---+ -------+| ?<15 (or dialysis) ? ?| ?Stage five ? | ? Stage five ?+ ---+ ---+ -------+ *Each stage assumes the associated GFR level has been in effect for at least three months. ?Stages 1 to 5, with or without kidney disease, indicate chronic kidney disease. Notes: Determination of stages one and two (with eGFR >59mL/min/1.73 m2) requires estimation of kidney damage for at least three months as defined by structural or functional abnormalities of the kidney, manifested by either:Pathological abnormalities or Markers of kidney damage (including abnormalities in the composition of the blood or urine or abnormalities in imaging tests). Lab Interpretation Abnormal (test code = 51243-9) [facility] WITH [id number] 10:35:25 Test Item Value Reference Range Interpretation Comments WBC (test code = See_Comment L [Automated 6690-2) message] The sy stem which generated this result transmitted reference range : 4.30 - 11.10 10*3/?L. The reference range was not used to interpret this result as normal/abnormal . RBC (test code = See_Comment L [Automated 789-8) message] The sy stem which generated this result transmitted reference range : 3.93 - 5.25 10*6/?L. The reference range was not used to interpret this result as normal/abnormal . HGB (test code = 10.6 g/dL 11.6-15.0 L 718-7) HCT (test code = 33.1 % 35.7-45.2 L 4544-3) MCV (test code = 94.8 fL 80.6-95.5 787-2) MCH (test code = 30.4 pg 25.9-32.8 785-6) MCHC (test code = 32.0 g/dL 31.6-35.1 786-4) RDW-SD (test code = 55.9 fL 39.0-49.9 H 85511-7) RDW-CV (test code = 16.0 % 12.0-15.5 H 788-0) PLT (test code = See_Comment LL [Automated 777-3) message] The sy stem which generated this result transmitted reference range : 166 - 358 10*3/ ?L. The reference r pardeep was not used to interpret this result as normal/abnormal . MPV (test code = 10.3 fL 9.5-12.9 29252-6) NRBC/100 WBC (test See_Comment [Automat ed code = 7501648567) message] The system which generated this result transmitted reference range : 0.0 - 10.0 /100 WBCs. The refer ence range was not u sed to interpret th is result as normal/abnormal . NRBC x10^3 (test code <0.01 See_Comment [Auto mated = 3066610868) message] The s ystem which generated this result transmitted reference range : 10*3/?L. The reference range was not used to interpret this result as normal/abnormal . GRAN MAT (NEUT) % 54.8 % (test code = 770-8) IMM GRAN % (test code 0.30 % = 4707166121) LYMPH % (test code = 38.1 % 736-9) MONO % (test code = 5.1 % 5905-5) EOS % (test code = 1.1 % 713-8) BASO % (test code = 0.6 % 706-2) GRAN MAT x10^3(ANC) 1.94 10*3/uL 1.88-7.09 (test code = 4552766212) IMM GRAN x10^3 (test <0.03 0.00-0.06 code = 5395157057) LYMPH x10^3 (test code 1.35 10*3/uL 1.32-3.29 = 731-0) MONO x10^3 (test code 0.18 10*3/uL 0.33-0.92 L = 742-7) EOS x10^3 (test code = 0.04 10*3/uL 0.03-0.39 711-2) BASO x10^3 (test code <0.03 0.01-0.07 = 704-7) Lab Interpretation Abnormal (test code = 51834-8) [facility] GLUCOSE (AUTOMATED)2021-04-08 21:40:17 Test Item Value Reference Range Interpretation Comments POCT GLU (test code = 5648954414) 323 mg/dL 70-110 H Lab Interpretation (test code = Abnormal 23193-2) [facility] GLUCOSE (AUTOMATED)2021-04-08 17:09:48 Test Item Value Reference Range Interpretation Comments POCT GLU (test code = 2643627362) 406 mg/dL 70-110 H Lab Interpretation (test code = Abnormal 70801-8) [facility] GLUCOSE (AUTOMATED)2021-04-08 12:42:19 Test Item Value Reference Range Interpretation Comments POCT GLU (test code = 5384908566) 148 mg/dL 70-110 H Lab Interpretation (test code = Abnormal 89690-3) [facility] WITH [id number] 11:06:27 Test Item Value Reference Range Interpretation Comments WBC (test code = See_Comment L [Automated 6690-2) message] The sy stem which generated this result transmitted reference range : 4.30 - 11.10 10*3/?L. The reference range was not used to interpret this result as normal/abnormal . RBC (test code = See_Comment L [Automated 789-8) message] The sy stem which generated this result transmitted reference range : 3.93 - 5.25 10*6/?L. The reference range was not used to interpret this result as normal/abnormal . HGB (test code = 10.1 g/dL 11.6-15.0 L 718-7) HCT (test code = 31.6 % 35.7-45.2 L 4544-3) MCV (test code = 94.0 fL 80.6-95.5 787-2) MCH (test code = 30.1 pg 25.9-32.8 785-6) MCHC (test code = 32.0 g/dL 31.6-35.1 786-4) RDW-SD (test code = 56.1 fL 39.0-49.9 H 67723-9) RDW-CV (test code = 16.1 % 12.0-15.5 H 788-0) PLT (test code = See_Comment LL [Automated 777-3) message] The sy stem which generated this result transmitted reference range : 166 - 358 10*3/ ?L. The reference r pardeep was not used to interpret this result as normal/abnormal . MPV (test code = 10.4 fL 9.5-12.9 58553-5) NRBC/100 WBC (test See_Comment [Automat ed code = 4459823109) message] The system which generated this result transmitted reference range : 0.0 - 10.0 /100 WBCs. The refer ence range was not u sed to interpret th is result as normal/abnormal . NRBC x10^3 (test code <0.01 See_Comment [Auto mated = 0839785703) message] The s ystem which generated this result transmitted reference range : 10*3/?L. The reference range was not used to interpret this result as normal/abnormal . GRAN MAT (NEUT) % 54.4 % (test code = 770-8) IMM GRAN % (test code 0.00 % = 3048498670) LYMPH % (test code = 37.3 % 736-9) MONO % (test code = 6.8 % 5905-5) EOS % (test code = 1.2 % 713-8) BASO % (test code = 0.3 % 706-2) GRAN MAT x10^3(ANC) 1.75 10*3/uL 1.88-7.09 L (test code = 1124499231) IMM GRAN x10^3 (test <0.03 0.00-0.06 code = 6408308022) LYMPH x10^3 (test code 1.20 10*3/uL 1.32-3.29 L = 731-0) MONO x10^3 (test code 0.22 10*3/uL 0.33-0.92 L = 742-7) EOS x10^3 (test code = 0.04 10*3/uL 0.03-0.39 711-2) BASO x10^3 (test code <0.03 0.01-0.07 = 704-7) Lab Interpretation Abnormal (test code = 57915-9) [facility] METABOLIC PANEL (NA, K, CL, CO2, GLUCOSE, BUN, CREATININE, CA)2021-04-08 10:21:40 Test Item Value Reference Range Interpretation Comments NA (test code = 136 mmol/L 135-145 1783031957) K (test code = 4.0 mmol/L 3.5-5.0 6256718445) CL (test code = 98 mmol/L 98-108 5124558948) CO2 TOTAL (test code = 36 mmol/L 23-31 H 9200275023) AGAP (test code = 2-16 1973967841) BUN (test code = 34 mg/dL 7-23 H 8796971663) GLUCOSE (test code = 193 mg/dL 70-110 H 6907457652) CREATININE (test code = 1.21 mg/dL 0.50-1.04 H 6235428553) CALCIUM (test code = 8.2 mg/dL 8.6-10.6 L 9015494202) eGFR (test code = mL/min/1.73m2 2218368712) NU (test code = NU) Association of Glomerular Filtration Rate (GFR) and Staging of Kidney Disease* + --+ --+ ------+| GFR (mL/min/1.73 m2) ?| With Kidney Damage ?| ?Without Kidney Damage+ --------+ --------+ +| ?>90 ?| ?Stage one ?| ? Normal ?+ ---+ ---+ -------+| ?60-89 ?| ?Stage two ?| ? Decreased GFR ? + --+ --+ ------+| ?30-59 ?| ?Stage three ?| ? Stage three ? + --+ --+ ------+| ?15-29 ?| ?Stage four ? | ? Stage four ?+ ---+ ---+ -------+| ?<15 (or dialysis) ? ?| ?Stage five ? | ? Stage five ?+ ---+ ---+ -------+ *Each stage assumes the associated GFR level has been in effect for at least three months. ?Stages 1 to 5, with or without kidney disease, indicate chronic kidney disease. Notes: Determination of stages one and two (with eGFR >59mL/min/1.73 m2) requires estimation of kidney damage for at least three months as defined by structural or functional abnormalities of the kidney, manifested by either:Pathological abnormalities or Markers of kidney damage (including abnormalities in the composition of the blood or urine or abnormalities in imaging tests). Lab Interpretation Abnormal (test code = 99770-6) [facility], [id number] 09:39:39 Test Item Value Reference Range Interpretation Comments AMMONIA (test code = 6604681678) 25 umol/L 9-33 Lab Interpretation (test code = Normal 07111-6) [facility] WITH [id number] 13:08:43 Test Item Value Reference Range Interpretation Comments WBC (test code = See_Comment L [Automated 6690-2) message] The system which generated this result transmitted reference range : 4.30 - 11.10 10*3/?L. The reference range was not used to interpret this result as normal/abnormal . RBC (test code = See_Comment L [Automated 789-8) message] The system which generated this result transmitted reference range : 3.93 - 5.25 10*6/?L. The reference range was not used to interpret this result as normal/abnormal . HGB (test code = 9.8 g/dL 11.6-15.0 L 718-7) HCT (test code = 30.1 % 35.7-45.2 L 4544-3) MCV (test code = 93.8 fL 80.6-95.5 787-2) MCH (test code = 30.5 pg 25.9-32.8 785-6) MCHC (test code = 32.6 g/dL 31.6-35.1 786-4) RDW-SD (test code = 55.4 fL 39.0-49.9 H 12657-7) RDW-CV (test code = 16.2 % 12.0-15.5 H 788-0) PLT (test code = See_Comment LL [Automated 777-3) message] The system which generated this result transmitted reference range : 166 - 358 10*3/?L. The reference range was not used to interpret this result as normal/abnormal . MPV (test code = 11.8 fL 9.5-12.9 96507-7) NRBC/100 WBC (test See_Comment [Automat ed code = 9650463854) message] The system which generated this result transmitted reference range : 0.0 - 10.0 /100 WBCs. The reference range was not used to interpret this result as normal/abnormal . NRBC x10^3 (test code <0.01 See_Comment [Auto mated = 0583333409) message] The system which generated this result transmitted reference range : 10*3/?L. The reference range was not used to interpret this result as normal/abnormal . GRAN MAT (NEUT) % 50.4 % (test code = 770-8) IMM GRAN % (test code 0.30 % = 2082509189) LYMPH % (test code = 41.8 % 736-9) MONO % (test code = 6.3 % 5905-5) EOS % (test code = 0.9 % 713-8) BASO % (test code = 0.3 % 706-2) GRAN MAT x10^3(ANC) 1.69 10*3/uL 1.88-7.09 L (test code = 7892932618) IMM GRAN x10^3 (test <0.03 0.00-0.06 code = 3728443265) LYMPH x10^3 (test 1.40 10*3/uL 1.32-3.29 code = 731-0) MONO x10^3 (test code 0.21 10*3/uL 0.33-0.92 L = 742-7) EOS x10^3 (test code 0.03 10*3/uL 0.03-0.39 = 711-2) BASO x10^3 (test code <0.03 0.01-0.07 = 704-7) PLT ESTIMATE (test Critically Normal AA code = 9317-9) Decreased Lab Interpretation Abnormal (test code = 86593-0) [facility] METABOLIC PANEL (NA, K, CL, CO2, GLUCOSE, BUN, CREATININE, CA)2021-04-07 11:05:41 Test Item Value Reference Range Interpretation Comments NA (test code = 134 mmol/L 135-145 L 6290500490) K (test code = 4.4 mmol/L 3.5-5.0 9226450778) CL (test code = 95 mmol/L 98-108 L 4254843553) CO2 TOTAL (test code = 38 mmol/L 23-31 H 6254696412) AGAP (test code = 2-16 L 9612916981) BUN (test code = 27 mg/dL 7-23 H 7179238098) GLUCOSE (test code = 72 mg/dL 70-110 6927993070) CREATININE (test code = 0.99 mg/dL 0.50-1.04 4691975218) CALCIUM (test code = 8.1 mg/dL 8.6-10.6 L 7645971484) eGFR (test code = mL/min/1.73m2 3351371546) NU (test code = NU) Association of Glomerular Filtration Rate (GFR) and Staging of Kidney Disease* + --+ --+ ------+| GFR (mL/min/1.73 m2) ?| With Kidney Damage ?| ?Without Kidney Damage+ --------+ --------+ +| ?>90 ?| ?Stage one ?| ? Normal ?+ ---+ ---+ -------+| ?60-89 ?| ?Stage two ?| ? Decreased GFR ? + --+ --+ ------+| ?30-59 ?| ?Stage three ?| ? Stage three ? + --+ --+ ------+| ?15-29 ?| ?Stage four ? | ? Stage four ?+ ---+ ---+ -------+| ?<15 (or dialysis) ? ?| ?Stage five ? | ? Stage five ?+ ---+ ---+ -------+ *Each stage assumes the associated GFR level has been in effect for at least three months. ?Stages 1 to 5, with or without kidney disease, indicate chronic kidney disease. Notes: Determination of stages one and two (with eGFR >59mL/min/1.73 m2) requires estimation of kidney damage for at least three months as defined by structural or functional abnormalities of the kidney, manifested by either:Pathological abnormalities or Markers of kidney damage (including abnormalities in the composition of the blood or urine or abnormalities in imaging tests). Lab Interpretation Abnormal (test code = 91507-0) [facility] 12:24:07 Test Item Value Reference Range Interpretation Comments POCT GLU (test code = 4862419770) 114 mg/dL 70-110 H Lab Interpretation (test code = Abnormal 82503-8) [facility] [id number] 11:12:38 Test Item Value Reference Range Interpretation Comments NT-proBNP (test code 753 pg/mL See_Comment H [Autom ated = 6394409885) message] The system which generated this result transmitted reference range : <=125. The reference range was not used to interpret this result as normal/abnormal . NU (test code = NU) Biotin has been reported to cause a negative bias, interpret results relative to patient's use of biotin. Lab Interpretation Abnormal (test code = 05216-4) [facility] [place]. METABOLIC PANEL ([id number])2021-04-06 11:03:39 Test Item Value Reference Range Interpretation Comments NA (test code = 138 mmol/L 135-145 9632123343) K (test code = 3.7 mmol/L 3.5-5.0 4915549019) CL (test code = 95 mmol/L 98-108 L 1466369860) CO2 TOTAL (test code = 37 mmol/L 23-31 H 2226749245) AGAP (test code = 2-16 7877132868) BUN (test code = 23 mg/dL 7-23 5877842133) GLUCOSE (test code = 137 mg/dL 70-110 H 7444560929) CREATININE (test code = 1.04 mg/dL 0.50-1.04 8052642921) TOTAL BILI (test code = 0.6 mg/dL 0.1-1.9 2207895046) CALCIUM (test code = 8.3 mg/dL 8.6-10.6 L 6939175914) T PROTEIN (test code = 6.7 g/dL 6.3-8.2 6132370290) ALBUMIN (test code = 3.0 g/dL 3.5-5.0 L 2462762960) ALK PHOS (test code = 112 U/L 34-122 8973332795) ALTv (test code = 22 U/L 5-35 1742-6) AST(SGOT) (test code = 44 U/L 13-40 H 2837892429) eGFR (test code = mL/min/1.73m2 2671377075) NU (test code = NU) Association of Glomerular Filtration Rate (GFR) and Staging of Kidney Disease* + --+ --+ ------+| GFR (mL/min/1.73 m2) ?| With Kidney Damage ?| ?Without Kidney Damage+ --------+ --------+ +| ?>90 ?| ?Stage one ?| ? Normal ?+ ---+ ---+ -------+| ?60-89 ?| ?Stage two ?| ? Decreased GFR ? + --+ --+ ------+| ?30-59 ?| ?Stage three ?| ? Stage three ? + --+ --+ ------+| ?15-29 ?| ?Stage four ? | ? Stage four ?+ ---+ ---+ -------+| ?<15 (or dialysis) ? ?| ?Stage five ? | ? Stage five ?+ ---+ ---+ -------+ *Each stage assumes the associated GFR level has been in effect for at least three months. ?Stages 1 to 5, with or without kidney disease, indicate chronic kidney disease. Notes: Determination of stages one and two (with eGFR >59mL/min/1.73 m2) requires estimation of kidney damage for at least three months as defined by structural or functional abnormalities of the kidney, manifested by either:Pathological abnormalities or Markers of kidney damage (including abnormalities in the composition of the blood or urine or abnormalities in imaging tests). Lab Interpretation Abnormal (test code = 71080-0) [facility]20[facility] 11:03:39 Test Item Value Reference Range Interpretation Comments MAGNESIUM (test code = 0376255011) 2.1 mg/dL 1.7-2.4 Lab Interpretation (test code = Normal 80619-1) [facility]21-[facility]-05 21:42:42 Test Item Value Reference Range Interpretation Comments POCT GLU (test code = 8713823322) 234 mg/dL 70-110 H Lab Interpretation (test code = Abnormal 99979-3) [facility] CenterVIT[facility]IN D, [id number] 16:58:06 Test Item Value Reference Range Interpretation Comments VIT D 25OH (test code = <13 25-80 L 79946-8) NU (test code = NU) Deficiency: <20 ng/mLInsufficiency: 20-24 ng/mLOptimal: 25-80 ng/mL Lab Interpretation (test Abnormal code = 31203-7) [facility] CenterVIT[facility]IN B12, [id number] 16:30:39 Test Item Value Reference Range Interpretation Comments VIT B12 (test code = 760 pg/mL 240-930 2431962768) NU (test code = NU) Biotin has been reported to cause a positive bias, interpret results relative to patient's use of biotin. Lab Interpretation (test Normal code = 50136-5) [facility] CenterFOLATE2021-09-[facility] 16:20:34 Test Item Value Reference Range Interpretation Comments FOLATE SER (test code = 8092322578) 8.3 ng/mL 3.0-20.0 Lab Interpretation (test code = Normal 97654-6) [facility] CenterFERRITIN [id number] 12:52:39 Test Item Value Reference Range Interpretation Comments FERRITIN (test code = 81.8 ng/mL 11.0-264.0 4569887365) NU (test code = NU) Biotin has been reported to cause a negative bias, interpret results relative to patient's use of biotin. Lab Interpretation (test Normal code = 54958-1) [facility] CenterFERRITIN [id number] 12:51:15 Test Item Value Reference Range Interpretation Comments FERRITIN (test code = 82.3 ng/mL 11.0-264.0 2333266582) NU (test code = NU) Biotin has been reported to cause a negative bias, interpret results relative to patient's use of biotin. Lab Interpretation (test Normal code = 85992-8) [facility]2021-04-05 12:46:25 Test Item Value Reference Range Interpretation Comments POCT GLU (test code = 5688725555) 58 mg/dL 70-110 L Lab Interpretation (test code = Abnormal 23735-5) [facility] CenterIRON [id number] 12:36:55 Test Item Value Reference Range Interpretation Comments IRON (test code = 4526035057) 72 ug/dL 50-160 TIBC (test code = 2976237009) 354 ug/dL 250-410 % FE SAT (test code = 6991653386) 20 % 20-50 Lab Interpretation (test code = Normal 19408-9) [facility]MAG[facility]UM2021-09-23 12:27:58 Test Item Value Reference Range Interpretation Comments MAGNESIUM (test code = 9272611134) 1.4 mg/dL 1.7-2.4 L Lab Interpretation (test code = Abnormal 93119-7) [facility] [place]. METABOLIC PANEL ([id number])2021-04-05 12:27:53 Test Item Value Reference Range Interpretation Comments NA (test code = 138 mmol/L 135-145 6124549587) K (test code = 3.3 mmol/L 3.5-5.0 L 0566770068) CL (test code = 98 mmol/L 98-108 2615287366) CO2 TOTAL (test code = 39 mmol/L 23-31 H 6684365307) AGAP (test code = 2-16 L 3642718383) BUN (test code = 23 mg/dL 7-23 5628715815) GLUCOSE (test code = 58 mg/dL 70-110 L 6909631280) CREATININE (test code = 1.00 mg/dL 0.50-1.04 3875660112) TOTAL BILI (test code = 0.7 mg/dL 0.1-1.0 6896743913) CALCIUM (test code = 8.5 mg/dL 8.6-10.6 L 9916361802) T PROTEIN (test code = 6.7 g/dL 6.3-8.2 0850914650) ALBUMIN (test code = 3.0 g/dL 3.5-5.0 L 3920050468) ALK PHOS (test code = 88 U/L 34-122 3509798912) ALTv (test code = 20 U/L 5-35 1742-6) AST(SGOT) (test code = 43 U/L 13-40 H 3244489693) eGFR (test code = mL/min/1.73m2 1629535221) NU (test code = NU) Association of Glomerular Filtration Rate (GFR) and Staging of Kidney Disease* + --+ --+ ------+| GFR (mL/min/1.73 m2) ?| With Kidney Damage ?| ?Without Kidney Damage+ --------+ --------+ +| ?>90 ?| ?Stage one ?| ? Normal ?+ ---+ ---+ -------+| ?60-89 ?| ?Stage two ?| ? Decreased GFR ? + --+ --+ ------+| ?30-59 ?| ?Stage three ?| ? Stage three ? + --+ --+ ------+| ?15-29 ?| ?Stage four ? | ? Stage four ?+ ---+ ---+ -------+| ?<15 (or dialysis) ? ?| ?Stage five ? | ? Stage five ?+ ---+ ---+ -------+ *Each stage assumes the associated GFR level has been in effect for at least three months. ?Stages 1 to 5, with or without kidney disease, indicate chronic kidney disease. Notes: Determination of stages one and two (with eGFR >59mL/min/1.73 m2) requires estimation of kidney damage for at least three months as defined by structural or functional abnormalities of the kidney, manifested by either:Pathological abnormalities or Markers of kidney damage (including abnormalities in the composition of the blood or urine or abnormalities in imaging tests). Lab Interpretation Abnormal (test code = 90656-2) [facility] CenterPHOSPHORUS2021-[facility]-23 12:27:33 Test Item Value Reference Range Interpretation Comments PHOSPHORUS (test code = 4969206772) 4.1 mg/dL 2.5-5.0 Lab Interpretation (test code = Normal 17466-4) [facility] CenterN-[facility]MINAL [id number] 12:26:37 Test Item Value Reference Range Interpretation Comments NT-proBNP (test code 1770 pg/mL See_Comment H [Autom ated = 4197117290) message] The system which generated this result transmitted reference range : <=125. The reference range was not used to interpret this result as normal/abnormal . NU (test code = NU) Biotin has been reported to cause a negative bias, interpret results relative to patient's use of biotin. Lab Interpretation Abnormal (test code = 53628-2) [facility] WITH [id number] 11:52:16 Test Item Value Reference Range Interpretation Comments WBC (test code = See_Comment L [Automated 7090-2) message] The system which generated this result transmit thong reference range : 4.30 - 11.10 10*3/?L. The reference range was not used to interpret this result as normal/abnormal . RBC (test code = See_Comment L [Automated 789-8) message] The system which generated this result transmit thong reference range : 3.93 - 5.25 10*6/?L. The reference range was not used to interpret this result as normal/abnormal . HGB (test code = 9.0 g/dL 11.6-15.0 L 718-7) HCT (test code = 28.1 % 35.7-45.2 L 4544-3) MCV (test code = 95.3 fL 80.6-95.5 787-2) MCH (test code = 30.5 pg 25.9-32.8 785-6) MCHC (test code = 32.0 g/dL 31.6-35.1 786-4) RDW-SD (test code = 56.6 fL 39.0-49.9 H 20396-1) RDW-CV (test code = 16.2 % 12.0-15.5 H 788-0) PLT (test code = See_Comment LL [Automated 777-3) message] The system which generated this result transmit thong reference range : 166 - 358 10*3/ ?L. The reference range was not u sed to interpret th is result as normal/abnormal . MPV (test code = 9.6 fL 9.5-12.9 58121-0) IPF % (test code = 1.7 % 1.3-7.7 Platelet count 3347459943) measured by fluorescence method. NRBC/100 WBC (test See_Comment [Automat ed code = 4042971211) message] The system which generated this result transmit thong reference range : 0.0 - 10.0 /100 WBCs. The reference range was not used to interpret this result as normal/abnormal . NRBC x10^3 (test code <0.01 See_Comment [Auto mated = 4347312559) message] The system which generated this result transmit thong reference range : 10*3/?L. The reference range was not used to interpret this result as normal/abnormal . GRAN MAT (NEUT) % 53.0 % (test code = 770-8) IMM GRAN % (test code 0.40 % = 3388471655) LYMPH % (test code = 37.6 % 736-9) MONO % (test code = 7.0 % 5905-5) EOS % (test code = 1.2 % 713-8) BASO % (test code = 0.8 % 706-2) GRAN MAT x10^3(ANC) 1.28 10*3/uL 1.88-7.09 L (test code = 6827055466) IMM GRAN x10^3 (test <0.03 0.00-0.06 code = 0570512880) LYMPH x10^3 (test 0.91 10*3/uL 1.32-3.29 L code = 731-0) MONO x10^3 (test code 0.17 10*3/uL 0.33-0.92 L = 742-7) EOS x10^3 (test code 0.03 10*3/uL 0.03-0.39 = 711-2) BASO x10^3 (test code <0.03 0.01-0.07 = 704-7) PLT ESTIMATE (test Critically Normal AA code = 9317-9) Decreased Lab Interpretation Abnormal (test code = 10046-6) [facility] CenterPROCALCITONIN2021-09-23 07:59:26 Test Item Value Reference Range Interpretation Comments Procalcitonin (test 0.05 ng/mL <0.07 code = 9902636194) NU (test code = NU) INTERPRETATION OF PROCALCITONIN RESULTS IN ADULTS >= 18 YEARS OF AGE Initiation and discontinuation of antibiotics on patients with suspected or confirmed Lower Respiratory Tract Infection in Adults >= 18 years of age. + +-------- --------+ + -----+|Procalcitonin |Interpretation ?|Antibiotic ? ? |Considerations ? |ng/mL ? | ?|recommendation | ? + +-------- --------+ + -----+| <0.1 ? | Bacterial ? ? ?| Strongly ? ? ?| ? | ?| infection very | discouraged ? | Overruling: ? | ?| unlikely ? ? ? | ? | ? Clinically unstable ? ? ? + +-------- --------+ + ? High risk for adverse ? ? | <0.25 ?| Bacterial ? ? ?| Discouraged ? | ? outcome ? | ?| infection ? ? ?| ? | ? SEE IMPORTANT NOTE ?| ?| unlikely ? ? ? | ? | ? + +-------- --------+ + -----+| >=0.25 ? ? ? | Bacterial ? ? ?| Encouraged ? ?| ? | ?| infection ? ? ?| ? | ? | ?| likely ? | ? | Consider treatment failure ?+ +------- ---------+ -+ if levels does not decrease | >0.5 ? | Bacterial ? ? ?| Strongly ? ? ?| appropriately ? | ?| infection very | encouraged ? ?| ? | ?| likely ? | ? | ? + +-------- --------+ + -----+ Discontinuation of antibiotics in high-acuity patients with suspected or confirmed sepsis in Adults >= 18 years of age. + +-------- --------+ + -----+|Procalcitonin |Interpretation ?|Antibiotic ? ? |Considerations ? |ng/mL ? | ?|recommendation | ? + +-------- --------+ + -----+| <0.25 ?| Bacterial ? ? ?| Strongly ? ? ?| ? | ?| infection very | discouraged ? | Overruling: ? | ?| unlikely ? ? ? | ? | ? Clinically unstable ? ? ? + +-------- --------+ + ? High risk for adverse ? ? | <0.5 or drop | Bacterial ? ? ?| Discouraged ? | ? outcome ? | >80% from ? ?| infection ? ? ?| ? | ? SEE IMPORTANT NOTE ?| highest PCT ?| unlikely ? ? ? | ? | ? | level ?| ?| ? | ? + +-------- --------+ + -----+| >=0.5 ?| Bacterial ? ? ?| Encouraged ? ?| ? | ?| infection ? ? ?| ? | ? | ?| likely ? | ? | Consider treatment failure ?+ +------- ---------+ -+ if levels does not decrease | >1.0 ? | Bacterial ? ? ?| Strongly ? ? ?| appropriately ? | ?| infection very | encouraged ? ?| ? | ?| likely ? | ? | ? + +-------- --------+ + -----+ Percentage of drop of Procalcitonin calculation for Discontinuation of antibiotics in high-acuity patients with suspected or confirmed sepsis in Adults >= 18 years of age. ? Procalcitonin highest{}-Procalcitonin current{}Delta Procalcitonin = x100% ? Procalcitonin current {} IMPORTANT NOTE: Procalcitonin may be elevated without bacterial infection by physiologic stress related to trauma, warner, chronic dialysis, metastatic cancer, surgery in the past seven days, malaria, some fungal infections, and some forms of vasculitis. The interpretation algorithm may not apply to patients with immunosuppression (equivalent of >10 mg of prednisone daily), HIV with CD4 cell count < 350 cells/mm3, active malignancy on systemic chemotherapy, solid organ transplant or hematopoietic stem cell transplantation, or hospital acquired pneumonia. Additionally, some clinical trials of procalcitonin have excluded patients with shock requiring vasopressor use, acute respiratory failure requiring mechanical ventilation, or those with known lung abscess/empyema. For further information please refer to:[email or web address] Lab Interpretation Normal (test code = 00481-0) [facility] CenterVALPROIC ACID, [id number] 07:31:01 Test Item Value Reference Range Interpretation Comments Valproic Acid, Free 6.1 ug/mL 4.0-15.0 (test code = 3002201197) NU (test code = NU) Toxic Range: ? Greater than 15 ug/mL Test developed and characteristics determined by [facility] Services. Lab Interpretation Normal (test code = 01670-9) [facility] GLUCOSE (AUTOMATED)2021-04-05 01:36:59 Test Item Value Reference Range Interpretation Comments POCT GLU (test code = 2560922268) 218 mg/dL 70-110 H Lab Interpretation (test code = Abnormal 72497-1) [facility] CenterFERRITIN [id number] 00:12:31 Test Item Value Reference Range Interpretation Comments FERRITIN (test code = 87.2 ng/mL 11.0-264.0 8867533326) NU (test code = NU) Biotin has been reported to cause a negative bias, interpret results relative to patient's use of biotin. Lab Interpretation (test Normal code = 26165-4) [facility] CenterDIFF CONSULT [id number] 23:16:01 LEUKOCYTOPENIA WITH ABSOLUTE LYMPHOCYTOPENIA, MONOCYTOPENIA, AND EOSINOPENIA. NORMOCYTIC HYPOCHROMICANEMIA. SEVERE THROMBOCYTOPENIA.[facility] GLUCOSE (AUTOMATED)2021-04-04 22:23:28 Test Item Value Reference Range Interpretation Comments POCT GLU (test code = 6185886537) 194 mg/dL 70-110 H Lab Interpretation (test code = Abnormal 79629-2) [facility] GLUCOSE (AUTOMATED)2021-04-04 16:56:37 Test Item Value Reference Range Interpretation Comments POCT GLU (test code = 7873172146) 161 mg/dL 70-110 H Lab Interpretation (test code = Abnormal 01721-3) [facility] GLUCOSE (AUTOMATED)2021-04-04 12:59:40 Test Item Value Reference Range Interpretation Comments POCT GLU (test code = 9417854856) 116 mg/dL 70-110 H Lab Interpretation (test code = Abnormal 87806-7) [facility] CenterTROPONIN [id number] 12:27:33 Test Item Value Reference Interpretation Comments Range TROPONIN I (test 0.011 ng/mL See_Comment [Automated code = 4543248121) message] The system which generated this result transmitted reference range : <=0.034. The reference range was not used to interpret this result as normal/abnormal . NU (test code = Reference (Normal) NU) Range (defined by the 99th percentile reference limit): <= 0.034 ng/mL Note: Cardiac troponin begins to rise 3-4 hours after the onset of ischemia. Repeat in 4-6 hours if the sample was drawn within 3-4 hours of the onset of the symptom and found normal. Diagnosis of myocardial injury is made with acute changes in cTn concentrations with at least one serial sample above the 99th percentile upper reference limit (URL), taken together with the patient's clinical presentation. Biotin has been reported to cause a negative bias, interpret results relative to patient's use of biotin. Lab Interpretation Normal (test code = 79073-4) [facility] CenterN-TERMINAL [id number] 12:24:30 Test Item Value Reference Range Interpretation Comments NT-proBNP (test code 3470 pg/mL See_Comment H [Autom ated = 0001139280) message] The system which generated this result transmitted reference range : <=125. The reference range was not used to interpret this result as normal/abnormal . NU (test code = NU) Biotin has been reported to cause a negative bias, interpret results relative to patient's use of biotin. Lab Interpretation Abnormal (test code = 04268-0) [facility] CenterMagnesium [id number] 12:20:57 Test Item Value Reference Range Interpretation Comments MAGNESIUM (test code = 6972251018) 1.5 mg/dL 1.7-2.4 L Lab Interpretation (test code = Abnormal 57877-2) [facility] CenterCOMP. METABOLIC PANEL (01189)2021-04-04 12:20:52 Test Item Value Reference Range Interpretation Comments NA (test code = 139 mmol/L 135-145 6296547133) K (test code = 3.5 mmol/L 3.5-5.0 8829039617) CL (test code = 101 mmol/L 98-108 7247575469) CO2 TOTAL (test code = 33 mmol/L 23-31 H 4629896656) AGAP (test code = 2-16 7503320833) BUN (test code = 23 mg/dL 7-23 1091024048) GLUCOSE (test code = 150 mg/dL 70-110 H 3465369102) CREATININE (test code = 0.89 mg/dL 0.50-1.04 6715744979) TOTAL BILI (test code = 0.8 mg/dL 0.1-1.3 6882477322) CALCIUM (test code = 8.4 mg/dL 8.6-10.6 L 2452759328) T PROTEIN (test code = 6.5 g/dL 6.3-8.2 4126212451) ALBUMIN (test code = 2.9 g/dL 3.5-5.0 L 7369331368) ALK PHOS (test code = 95 U/L 34-122 7832162715) ALTv (test code = 20 U/L 5-35 1742-6) AST(SGOT) (test code = 38 U/L 13-40 7980615227) eGFR (test code = mL/min/1.73m2 2410887146) NU (test code = NU) Association of Glomerular Filtration Rate (GFR) and Staging of Kidney Disease* + --+ --+ ------+| GFR (mL/min/1.73 m2) ?| With Kidney Damage ?| ?Without Kidney Damage+ --------+ --------+ +| ?>90 ?| ?Stage one ?| ? Normal ?+ ---+ ---+ -------+| ?60-89 ?| ?Stage two ?| ? Decreased GFR ? + --+ --+ ------+| ?30-59 ?| ?Stage three ?| ? Stage three ? + --+ --+ ------+| ?15-29 ?| ?Stage four ? | ? Stage four ?+ ---+ ---+ -------+| ?<15 (or dialysis) ? ?| ?Stage five ? | ? Stage five ?+ ---+ ---+ -------+ *Each stage assumes the associated GFR level has been in effect for at least three months. ?Stages 1 to 5, with or without kidney disease, indicate chronic kidney disease. Notes: Determination of stages one and two (with eGFR >59mL/min/1.73 m2) requires estimation of kidney damage for at least three months as defined by structural or functional abnormalities of the kidney, manifested by either:Pathological abnormalities or Markers of kidney damage (including abnormalities in the composition of the blood or urine or abnormalities in imaging tests). Lab Interpretation Abnormal (test code = 07937-2) [facility] CenterPHOSPHORUS2021-09-22 12:20:32 Test Item Value Reference Range Interpretation Comments PHOSPHORUS (test code = 0513456841) 4.3 mg/dL 2.5-5.0 Lab Interpretation (test code = Normal 55541-7) [facility] CenterAMMONIA, [id number] 11:44:26 Test Item Value Reference Range Interpretation Comments AMMONIA (test code = 3688744789) 35 umol/L 9-33 H Lab Interpretation (test code = Abnormal 74762-8) [facility] WITH [id number] 11:44:21 Test Item Value Reference Range Interpretation Comments WBC (test code = See_Comment L [Automated 6690-2) message] The system which generated this result transmit thong reference range : 4.30 - 11.10 10*3/?L. The reference range was not used to interpret this result as normal/abnormal . RBC (test code = See_Comment L [Automated 789-8) message] The system which generated this result transmit thong reference range : 3.93 - 5.25 10*6/?L. The reference range was not used to interpret this result as normal/abnormal . HGB (test code = 8.9 g/dL 11.6-15.0 L 718-7) HCT (test code = 27.9 % 35.7-45.2 L 4544-3) MCV (test code = 95.9 fL 80.6-95.5 H 787-2) MCH (test code = 30.6 pg 25.9-32.8 785-6) MCHC (test code = 31.9 g/dL 31.6-35.1 786-4) RDW-SD (test code = 58.4 fL 39.0-49.9 H 64352-9) RDW-CV (test code = 16.7 % 12.0-15.5 H 788-0) PLT (test code = See_Comment LL [Automated 777-3) message] The system which generated this result transmit thong reference range : 166 - 358 10*3/ ?L. The reference range was not u sed to interpret th is result as normal/abnormal . MPV (test code = 9.1 fL 9.5-12.9 L 30293-9) IPF % (test code = 1.6 % 1.3-7.7 Platelet count 7387268965) measured by fluorescence method. NRBC/100 WBC (test See_Comment [Automat ed code = 0766059833) message] The system which generated this result transmit thong reference range : 0.0 - 10.0 /100 WBCs. The reference range was not used to interpret this result as normal/abnormal . NRBC x10^3 (test code See_Comment [Auto mated = 3218990324) message] The system which generated this result transmit thong reference range : 10*3/?L. The reference range was not used to interpret this result as normal/abnormal . GRAN MAT (NEUT) % 52.1 % (test code = 770-8) IMM GRAN % (test code 0.40 % = 2706479562) LYMPH % (test code = 38.8 % 736-9) MONO % (test code = 6.5 % 5905-5) EOS % (test code = 1.3 % 713-8) BASO % (test code = 0.9 % 706-2) GRAN MAT x10^3(ANC) 1.21 10*3/uL 1.88-7.09 L (test code = 2398001921) IMM GRAN x10^3 (test <0.03 0.00-0.06 code = 4571127218) LYMPH x10^3 (test 0.90 10*3/uL 1.32-3.29 L code = 731-0) MONO x10^3 (test code 0.15 10*3/uL 0.33-0.92 L = 742-7) EOS x10^3 (test code 0.03 10*3/uL 0.03-0.39 = 711-2) BASO x10^3 (test code <0.03 0.01-0.07 = 704-7) PLT ESTIMATE (test Critically Normal AA code = 9317-9) Decreased Lab Interpretation Abnormal (test code = 74173-6) [facility] CenterPROTHROMBIN TIME / [id number] 11:22:04 Test Item Value Reference Range Interpretation Comments PROTIME PATIENT (test See_Comment [Auto mated message] code = 5964-2) The system ich generated this result transmitted ref erence range: 12.0 - 1 4.7 Seconds. The re ference range was not u sed to interpret this result as normal/abnor mal. INR (test code = 6301-6) Nor mal INR <1.1; Warfarin Therap eutic range 2.0 to 3. 0 or 2.5 to 3.5, dep ending upon the indica tions. Lab Interpretation (test Normal code = 29117-3) [facility]TR[facility] [id number] 06:51:36 Test Item Value Reference Interpretation Comments Range TROPONIN I (test 0.010 ng/mL See_Comment [Automated code = 4877603297) message] The system which generated this result transmitted reference range : <=0.034. The reference range was not used to interpret this result as normal/abnormal . NU (test code = Reference (Normal) NU) Range (defined by the 99th percentile reference limit): <= 0.034 ng/mL Note: Cardiac troponin begins to rise 3-4 hours after the onset of ischemia. Repeat in 4-6 hours if the sample was drawn within 3-4 hours of the onset of the symptom and found normal. Diagnosis of myocardial injury is made with acute changes in cTn concentrations with at least one serial sample above the 99th percentile upper reference limit (URL), taken together with the patient's clinical presentation. Biotin has been reported to cause a negative bias, interpret results relative to patient's use of biotin. Lab Interpretation Normal (test code = 10086-5) [facility] CenterVALPROIC ACID, [id number] 06:44:39 Test Item Value Reference Range Interpretation Comments VALPROIC A (test code = 33 ug/mL 50-100 L 5868600186) NU (test code = NU) Toxic Range: ?Greater than 100 ug/mL Lab Interpretation (test Abnormal code = 73057-9) [facility] CenterAM[facility]IA, [id number] 05:32:10 Test Item Value Reference Range Interpretation Comments AMMONIA (test code = 7010095176) 49 umol/L 9-33 H Lab Interpretation (test code = Abnormal 33452-4) [facility] CenterTHYROID STIMULATING [id number] 04:42:00 Test Item Value Reference Range Interpretation Comments TSH (test code = See_Comment [Automated message] 6147582631) The system [employer] generated this result transmitted ref erence range: 0.45 - 4 .70 mIU/L. The refe rence range was not u sed to interpret this result as normal/abnor mal. Lab Interpretation (test Normal code = 34533-7) [facility] CenterPO[facility] ([facility]ATED)2021-04-04 04:14:58 Test Item Value Reference Range Interpretation Comments POCT GLU (test code = 2841044730) 204 mg/dL 70-110 H Lab Interpretation (test code = Abnormal 34732-7) [facility] CenterLIPID PANEL (18745)(TOTAL CHOLESTEROL, TRIGLYCERIDES, HDL)2021-04-04 04:11:59 Test Item Value Reference Range Interpretation Comments CHOL (test code = 173 mg/dL 120-200 6726819242) HDL (test code = 30 mg/dL >50 L 0826399389) HDLC RATIO (test code = See_Comment H [Au tomated message] 1720756083) The system [employer] generated this result transmit thong reference range : <=4.5. The refe rence range was not u sed to interpret th is result as normal/abnormal . TRIG (test code = 168 mg/dL 30-170 7753986062) LDL CHOL (test code = 109 mg/dL See_Comment [Auto mated message] 17943-2) The system [employer] generated this result transmit thong reference range : <=160. The refe rence range was not u sed to interpret th is result as normal/abnormal . VLDL (test code = 34 mg/dL 5-60 2629524563) Lab Interpretation (test Abnormal code = 95099-3) [facility] CenterMAGNESIUM2021-09-22 04:11:39 Test Item Value Reference Range Interpretation Comments MAGNESIUM (test code = 1465628472) 1.6 mg/dL 1.7-2.4 L Lab Interpretation (test code = Abnormal 40393-3) [facility] CenterPHOSPHORUS2021-09-22 04:11:23 Test Item Value Reference Range Interpretation Comments PHOSPHORUS (test code = 4171228501) 3.9 mg/dL 2.5-5.0 Lab Interpretation (test code = Normal 76157-5) [facility] CenterURIC [id number] 04:10:57 Test Item Value Reference Range Interpretation Comments URIC ACID (test code = 5798810084) 6.6 mg/dL 2.9-6.0 H Lab Interpretation (test code = Abnormal 31065-5) [facility] CenterGLYCOSYLATED HEMOGLOBIN (A1C)2021-04-04 04:10:52 Test Item Value Reference Range Interpretation Comments HGB A1C (test code = 7.6 % 4.0-5.7 H 4548-4) NU (test code = NU) Reference RangesNormal: <5.7%Prediabetes: 5.7 - 6.4%Diabetes: > 6.5% Lab Interpretation (test Abnormal code = 75518-2) [facility] (NA, K, CL, CO2, GLUCOSE, BUN, CREATININE, CA)2021-04-04 00:06:53 Test Item Value Reference Range Interpretation Comments NA (test code = 138 mmol/L 135-145 7183353762) K (test code = 4.1 mmol/L 3.5-5.0 4145472637) CL (test code = 99 mmol/L 98-108 3702781790) CO2 TOTAL (test code = 35 mmol/L 23-31 H 4143529454) AGAP (test code = 2-16 7780245230) BUN (test code = 21 mg/dL 7-23 9451810704) GLUCOSE (test code = 253 mg/dL 70-110 H 8936884296) CREATININE (test code = 0.91 mg/dL 0.50-1.04 0543401149) CALCIUM (test code = 8.6 mg/dL 8.6-10.6 7348593635) eGFR (test code = mL/min/1.73m2 2721197349) NU (test code = NU) Association of Glomerular Filtration Rate (GFR) and Staging of Kidney Disease* + --+ --+ ------+| GFR (mL/min/1.73 m2) ?| With Kidney Damage ?| ?Without Kidney Damage+ --------+ --------+ +| ?>90 ?| ?Stage one ?| ? Normal ?+ ---+ ---+ -------+| ?60-89 ?| ?Stage two ?| ? Decreased GFR ? + --+ --+ ------+| ?30-59 ?| ?Stage three ?| ? Stage three ? + --+ --+ ------+| ?15-29 ?| ?Stage four ? | ? Stage four ?+ ---+ ---+ -------+| ?<15 (or dialysis) ? ?| ?Stage five ? | ? Stage five ?+ ---+ ---+ -------+ *Each stage assumes the associated GFR level has been in effect for at least three months. ?Stages 1 to 5, with or without kidney disease, indicate chronic kidney disease. Notes: Determination of stages one and two (with eGFR >59mL/min/1.73 m2) requires estimation of kidney damage for at least three months as defined by structural or functional abnormalities of the kidney, manifested by either:Pathological abnormalities or Markers of kidney damage (including abnormalities in the composition of the blood or urine or abnormalities in imaging tests). Lab Interpretation Abnormal (test code = 03265-8) [facility] WITH [id number] 21:16:41 Test Item Value Reference Range Interpretation Comments WBC (test code = See_Comment L [Automated 6690-2) message] The system which generated this result transmit thong reference range : 4.30 - 11.10 10*3/?L. The reference range was not used to interpret this result as normal/abnormal . RBC (test code = See_Comment L [Automated 789-8) message] The system which generated this result transmit thong reference range : 3.93 - 5.25 10*6/?L. The reference range was not used to interpret this result as normal/abnormal . HGB (test code = 9.3 g/dL 11.6-15.0 L 718-7) HCT (test code = 29.5 % 35.7-45.2 L 4544-3) MCV (test code = 95.5 fL 80.6-95.5 787-2) MCH (test code = 30.1 pg 25.9-32.8 785-6) MCHC (test code = 31.5 g/dL 31.6-35.1 L 786-4) RDW-SD (test code = 57.5 fL 39.0-49.9 H 43742-7) RDW-CV (test code = 16.8 % 12.0-15.5 H 788-0) PLT (test code = See_Comment LL [Automated 777-3) message] The system which generated this result transmit thong reference range : 166 - 358 10*3/ ?L. The reference range was not u sed to interpret th is result as normal/abnormal . MPV (test code = 10.5 fL 9.5-12.9 52010-9) IPF % (test code = 1.4 % 1.3-7.7 Platelet count 7426089775) measured by fluorescence method. NRBC/100 WBC (test See_Comment [Automat ed code = 5300797368) message] The system which generated this result transmit thong reference range : 0.0 - 10.0 /100 WBCs. The reference range was not used to interpret this result as normal/abnormal . NRBC x10^3 (test code <0.01 See_Comment [Auto mated = 8836912384) message] The system which generated this result transmit thong reference range : 10*3/?L. The reference range was not used to interpret this result as normal/abnormal . GRAN MAT (NEUT) % 69.0 % (test code = 770-8) IMM GRAN % (test code 0.40 % = 3033361250) LYMPH % (test code = 23.9 % 736-9) MONO % (test code = 5.6 % 5905-5) EOS % (test code = 0.7 % 713-8) BASO % (test code = 0.4 % 706-2) GRAN MAT x10^3(ANC) 1.97 10*3/uL 1.88-7.09 (test code = 1519869698) IMM GRAN x10^3 (test <0.03 0.00-0.06 code = 4700032142) LYMPH x10^3 (test 0.68 10*3/uL 1.32-3.29 L code = 731-0) MONO x10^3 (test code 0.16 10*3/uL 0.33-0.92 L = 742-7) EOS x10^3 (test code <0.03 0.03-0.39 L = 711-2) BASO x10^3 (test code <0.03 0.01-0.07 = 704-7) TARGET CELLS (test 2+ See_Comment A [Automat ed code = 02540-3) message] The system which generated this result transmit thong reference range : (none). The reference range was not used to interpret this result as normal/abnormal . PLT ESTIMATE (test Critically Normal AA code = 9317-9) Decreased Lab Interpretation Abnormal (test code = 66943-1) [facility] METABOLIC PANEL (NA, K, CL, CO2, GLUCOSE, BUN, CREATININE, CA)2021-04-03 20:48:54 Test Item Value Reference Range Interpretation Comments NA (test code = 137 mmol/L 135-145 1022663656) K (test code = 4.5 mmol/L 3.5-5.0 7569632431) CL (test code = 101 mmol/L 98-108 2318835129) CO2 TOTAL (test code = 32 mmol/L 23-31 H 5477823882) AGAP (test code = 2-16 2291706215) BUN (test code = 21 mg/dL 7-23 2830421668) GLUCOSE (test code = 321 mg/dL 70-110 H 1371315894) CREATININE (test code = 0.86 mg/dL 0.50-1.04 0183409455) CALCIUM (test code = 8.4 mg/dL 8.6-10.6 L 6676037483) eGFR (test code = mL/min/1.73m2 1275432712) NU (test code = NU) Association of Glomerular Filtration Rate (GFR) and Staging of Kidney Disease* + --+ --+ ------+| GFR (mL/min/1.73 m2) ?| With Kidney Damage ?| ?Without Kidney Damage+ --------+ --------+ +| ?>90 ?| ?Stage one ?| ? Normal ?+ ---+ ---+ -------+| ?60-89 ?| ?Stage two ?| ? Decreased GFR ? + --+ --+ ------+| ?30-59 ?| ?Stage three ?| ? Stage three ? + --+ --+ ------+| ?15-29 ?| ?Stage four ? | ? Stage four ?+ ---+ ---+ -------+| ?<15 (or dialysis) ? ?| ?Stage five ? | ? Stage five ?+ ---+ ---+ -------+ *Each stage assumes the associated GFR level has been in effect for at least three months. ?Stages 1 to 5, with or without kidney disease, indicate chronic kidney disease. Notes: Determination of stages one and two (with eGFR >59mL/min/1.73 m2) requires estimation of kidney damage for at least three months as defined by structural or functional abnormalities of the kidney, manifested by either:Pathological abnormalities or Markers of kidney damage (including abnormalities in the composition of the blood or urine or abnormalities in imaging tests). Lab Interpretation Abnormal (test code = 46958-8) [facility] CenterHEPATIC FUNCTION PANEL (19889) (ALB,T.PRO,BILI T,BU/BC,ALT,AST,ALK PHOS)2021-04-03 20:48:54 Test Item Value Reference Range Interpretation Comments TOTAL BILI (test code = 2383505041) 1.3 mg/dL 0.1-1.1 H BILI UNCON (test code = 9386034468) 0.9 mg/dL 0.1-1.1 BILI CONJ (test code = 2531422270) 0.0 mg/dL 0.0-0.3 T PROTEIN (test code = 0863904308) 7.1 g/dL 6.3-8.2 ALBUMIN (test code = 4660176168) 3.1 g/dL 3.5-5.0 L ALK PHOS (test code = 1323498688) 106 U/L 34-122 ALTv (test code = 1742-6) 22 U/L 5-35 AST(SGOT) (test code = 3374858546) 48 U/L 13-40 H Lab Interpretation (test code = Abnormal 33363-0) [facility] CenterTROPONIN [id number] 20:48:54 Test Item Value Reference Interpretation Comments Range TROPONIN I (test 0.010 ng/mL See_Comment [Automated code = 1545739707) message] The system which generated this result transmitted reference range : <=0.034. The reference range was not used to interpret this result as normal/abnormal . NU (test code = Reference (Normal) NU) Range (defined by the 99th percentile reference limit): <= 0.034 ng/mL Note: Cardiac troponin begins to rise 3-4 hours after the onset of ischemia. Repeat in 4-6 hours if the sample was drawn within 3-4 hours of the onset of the symptom and found normal. Diagnosis of myocardial injury is made with acute changes in cTn concentrations with at least one serial sample above the 99th percentile upper reference limit (URL), taken together with the patient's clinical presentation. Biotin has been reported to cause a negative bias, interpret results relative to patient's use of biotin. Lab Interpretation Normal (test code = 25059-8) [facility] CenterN-TERMINAL [id number] 20:48:54 Test Item Value Reference Range Interpretation Comments NT-proBNP (test code 3360 pg/mL See_Comment H [Autom ated = 3292990547) message] The system which generated this result transmitted reference range : <=125. The reference range was not used to interpret this result as normal/abnormal . NU (test code = NU) Biotin has been reported to cause a negative bias, interpret results relative to patient's use of biotin. Lab Interpretation Abnormal (test code = 57551-7) [facility] CenterAMMONIA, [id number] 20:36:31 Test Item Value Reference Range Interpretation Comments AMMONIA (test code = 19 umol/L 9-33 Slight hemolysis 9703442023) Lab Interpretation (test Normal code = 49654-9) [facility] CenteraPTT2021-02-26 02:34:00 Test Item Value Reference Range Interpretation Comments APTT Patient (test See_Comment [Automat ed code = 3173-2) message] The system which generated this result transmitted reference range : 23 - 38 Seconds . The reference range was not used to interpr et this result as normal/abnormal . NU (test code = NU) The [facility] patient population mean normal value for aPTT is 30 seconds. Lab Interpretation Normal (test code = 86065-9) [facility] CenterURINALYSIS2021-02-26 02:34:00 Test Item Value Reference Range Interpretation Comments APPEARANCE (test code = Clear Clear 7638523579) COLOR (test code = Yellow Yellow 0614516484) PH (test code = 4.8-8.0 3710956566) SP GRAVITY (test code = 1.003-1.030 7431372476) GLU U QUAL (test code = 150 mg/dL Normal A 0306440428) BLOOD (test code = 2+ Negative A 6117941692) KETONES (test code = Negative Negative 6353449478) PROTEIN (test code = 100 mg/dL Negative A 2887-8) UROBILIN (test code = 2.0 mg/dL Normal A 7079810270) BILIRUBIN (test code = Negative Negative 9695759137) NITRITE (test code = Negative Negative 9271839250) LEUK GUADALUPE (test code = 25/uL Negative A 2369829527) RBC/HPF (test code = See_Comment H [Autom ated message] 9730254962) The system [employer] generated this result transmit thong reference range : 0 - 3 HPF. The refe rence range was not u sed to interpret th is result as normal/abnormal . WBC/HPF (test code = See_Comment [Autom ated message] 9712022491) The system [employer] generated this result transmit thong reference range : 0 - 5 HPF. The refe rence range was not u sed to interpret th is result as normal/abnormal . BACTERIA (test code = Negative Negative 5974738884) MUCOUS (test code = Slight Negative LPF A 8697607348) SQ EPITH (test code = HPF 2985077285) Lab Interpretation (test Abnormal code = 90822-9) [facility] CenterPROTHROMBIN TIME / [id number] 02:31:00 Test Item Value Reference Range Interpretation Comments PROTIME PATIENT (test See_Comment [Auto mated message] code = 5964-2) The system [employer] generated this result transmitted ref erence range: 12.0 - 1 4.7 Seconds. The re ference range was not u sed to interpret this result as normal/abnor mal. INR (test code = 6301-6) Nor mal INR <1.1; Warfarin Therap eutic range 2.0 to 3. 0 or 2.5 to 3.5, dep ending upon the indica tions. Lab Interpretation (test Normal code = 14985-8) [facility] CenterAMMONIA, [id number] 02:22:00 Test Item Value Reference Range Interpretation Comments AMMONIA (test code = 0987478543) 15 umol/L 9-33 Lab Interpretation (test code = Normal 57076-6) [facility] CenterPO[facility]UCOSE (AUTOMATED)2020-02-08 07:33:00 Test Item Value Reference Range Interpretation Comments POCT GLU (test code = 7796392636) 434 mg/dL 70-110 H Lab Interpretation (test code = Abnormal 73252-4) [facility] CenterPOWY GLUCOSE(AGE 0-30DAYS)2020-02-08 07:28:00 Test Item Value Reference Range Interpretation Comments POCT Glu (age 0-30days) (test code 434 mg/dl 40-110 A = 3343) Lab Interpretation (test code = Abnormal 31703-7) [facility] with [id number] 04:38:00 Test Item Value Reference Range Interpretation Comments WBC (test code = See_Comment [Automated 6690-2) message] The sy stem which generated this result transmitted reference range : 4.30 - 11.10 10*3/?L. The reference range was not used to interpret this result as normal/abnormal . RBC (test code = See_Comment L [Automated 789-8) message] The sy stem which generated this result transmitted reference range : 3.93 - 5.25 10*6/?L. The reference range was not used to interpret this result as normal/abnormal . HGB (test code = 11.0 g/dL 11.6-15 L 718-7) HCT (test code = 34.7 % 35.7-45.2 L 4544-3) MCV (test code = 94.6 fL 80.6-95.5 787-2) MCH (test code = 30.0 pg 25.9-32.8 785-6) MCHC (test code = 31.7 g/dL 31.6-35.1 786-4) RDW-SD (test code = 52.5 fL 39-49.9 H 90011-3) RDW-CV (test code = 15.2 % 12-15.5 788-0) PLT (test code = See_Comment L [Automated 777-3) message] The sy stem which generated this result transmitted reference range : 166 - 358 10*3/ ?L. The reference r pardeep was not used to interpret this result as normal/abnormal . MPV (test code = 9.5 fL 9.5-12.9 48572-9) IPF % (test code = 2.5 % 1.3-7.7 Platelet count 5158609876) measured by fluorescence method. NRBC/100 WBC (test See_Comment [Automat ed code = 3593538756) message] The system which generated this result transmitted reference range : 0.0 - 10.0 /100 WBCs. The refer ence range was not u sed to interpret th is result as normal/abnormal . NRBC x10^3 (test code <0.01 See_Comment [Auto mated = 8336901220) message] The s ystem which generated this result transmitted reference range : 10*3/?L. The reference range was not used to interpret this result as normal/abnormal . GRAN MAT (NEUT) % 84.8 % (test code = 770-8) IMM GRAN % (test code 0.50 % = 0329442562) LYMPH % (test code = 10.4 % 736-9) MONO % (test code = 4.1 % 5905-5) EOS % (test code = 0.0 % 713-8) BASO % (test code = 0.2 % 706-2) GRAN MAT x10^3(ANC) 4.81 10*3/uL 1.88-7.09 (test code = 7806463713) IMM GRAN x10^3 (test 0.03 10*3/uL 0-0.06 code = 0355189391) LYMPH x10^3 (test code 0.59 10*3/uL 1.32-3.29 L = 731-0) MONO x10^3 (test code 0.23 10*3/uL 0.33-0.92 L = 742-7) EOS x10^3 (test code = <0.03 0.03-0.39 L 711-2) BASO x10^3 (test code <0.03 0.01-0.07 = 704-7) PLT ESTIMATE (test Decreased Normal A code = 9317-9) Lab Interpretation Abnormal (test code = 93380-0) [facility] CenterURINALYSIS2020-07-28 04:25:00 Test Item Value Reference Range Interpretation Comments APPEARANCE (test code = Clear Clear 1454477631) COLOR (test code = Yellow Yellow 0343537426) PH (test code = 4.8-8.0 8140808845) SP GRAVITY (test code = 1.003-1.030 7072710764) GLU U QUAL (test code = 500 mg/dL Normal A 3556841087) BLOOD (test code = Negative Negative 1032421099) KETONES (test code = Negative Negative 4467367413) PROTEIN (test code = Negative Negative 2887-8) UROBILIN (test code = Normal Normal 8912699341) BILIRUBIN (test code = Negative Negative 3987516556) NITRITE (test code = Negative Negative 2540866949) LEUK GUADALUPE (test code = Negative Negative 0073977895) RBC/HPF (test code = <1 See_Comment [Autom ated message] 4523676498) The system [employer] generated this result transmit thong reference range : 0 - 3 HPF. The refe rence range was not u sed to interpret th is result as normal/abnormal . WBC/HPF (test code = <1 See_Comment [Autom ated message] 9461011582) The system [employer] generated this result transmit thong reference range : 0 - 5 HPF. The refe rence range was not u sed to interpret th is result as normal/abnormal . BACTERIA (test code = Few Negative A 6756940535) SQ EPITH (test code = HPF 1832067702) Lab Interpretation (test Abnormal code = 68703-8) [facility]. METABOLIC PANEL (40063)2020-02-08 04:18:00 Test Item Value Reference Range Interpretation Comments NA (test code = 129 mmol/L 135-145 L 7874190847) K (test code = 4.8 mmol/L 3.5-5 9273219398) CL (test code = 98 mmol/L 98-108 5127189267) CO2 TOTAL (test code = 22 mmol/L 23-31 L 4232252827) AGAP (test code = 2-16 0847704784) BUN (test code = 38 mg/dL 7-23 H 9814163187) GLUCOSE (test code = 745 mg/dL 70-110 HH 3026404390) CREATININE (test code = 0.96 mg/dL 0.5-1.04 6245913305) TOTAL BILI (test code = 0.7 mg/dL 0.1-1.6 0496301743) CALCIUM (test code = 9.1 mg/dL 8.6-10.6 2632337510) T PROTEIN (test code = 7.8 g/dL 6.3-8.2 0401773508) ALBUMIN (test code = 3.5 g/dL 3.5-5 8934629667) ALK PHOS (test code = 194 U/L 34-122 H 0346724292) ALTv (test code = 31 U/L 5-35 1742-6) AST(SGOT) (test code = 42 U/L 13-40 H 2287561893) eGFR Calculation mL/min/1.73m2 (Non-) (test code = 5921291220) eGFR Calculation mL/min/1.73m2 () (test code = 3959619576) NU (test code = NU) Association of Glomerular Filtration Rate (GFR) and Staging of Kidney Disease* + --+ --+ ------+| GFR (mL/min/1.73 m2) ?| With Kidney Damage ?| ?Without Kidney Damage+ --------+ --------+ +| ?>90 ?| ?Stage one ?| ? Normal ?+ ---+ ---+ -------+| ?60-89 ?| ?Stage two ?| ? Decreased GFR ? + --+ --+ ------+| ?30-59 ?| ?Stage three ?| ? Stage three ? + --+ --+ ------+| ?15-29 ?| ?Stage four ? | ? Stage four ?+ ---+ ---+ -------+| ?<15 (or dialysis) ? ?| ?Stage five ? | ? Stage five ?+ ---+ ---+ -------+ *Each stage assumes the associated GFR level has been in effect for at least three months. ?Stages 1 to 5, with or without kidney disease, indicate chronic kidney disease. Notes: Determination of stages one and two (with eGFR >59mL/min/1.73 m2) requires estimation of kidney damage for at least three months as defined by structural or functional abnormalities of the kidney, manifested by either:Pathological abnormalities or Markers of kidney damage (including abnormalities in the composition of the blood or urine or abnormalities in imaging tests). Lab Interpretation Abnormal (test code = 65735-6) [facility] CenterCOLLINFORMERLY [facility] - SPARTANBURGCATARINA [id number] 04:16:00 Test Item Value Reference Range Interpretation Comments TROPONIN I (test <0.012 See_Comment [Automated code = 1460568678) message] The system which generated this result transmitted reference range : <=0.034 ng/mL. The reference range was not used to interpr et this result as normal/abnormal . NU (test code = Equal or Less than NU) 0.034 ng/ml---Normal ?Note: Cardiac troponin begins to rise 3-4 hours after the onset of ischemia. Repeat in 4-6 hours if the sample was drawn within 3-4 hours of the onset of the symptom and found normal. Between 0.035 and 0.120 ng/mL--- Borderline. Questionable myocardial injury or necrosis ? ?Note: Serial measurement may be necessary to confirm or exclude the diagnosis of myocardial injury or necrosis; Clinical correlation (symptoms, EKGs, imaging studies, and others) required; Repeat in 4-6 hours if clinically indicated. ? Equal or Higher than 0.121 ng/mL---Abnormal. Myocardial Injury or Necrosis Likely ? Biotin has been reported to cause a negative bias, interpret results relative to patient's use of biotin. ? Lab Interpretation Normal (test code = 66853-7) [facility] CenterN-[facility]MINAL [id number] 04:13:00 Test Item Value Reference Range Interpretation Comments NT-proBNP (test code 317 pg/mL See_Comment H [Autom ated = 3773182074) message] The system which generated this result transmitted reference range : <=125. The reference range was not used to interpret this result as normal/abnormal . NU (test code = NU) Biotin has been reported to cause a negative bias, interpret results relative to patient's use of biotin. Lab Interpretation Abnormal (test code = 80641-2) [facility] 0-30DAYS[facility]2020-02-08 03:21:00 Test Item Value Reference Range Interpretation Comments POCT Glu (age 0-30days) (test code = high 40-110 3343) Lab Interpretation (test code = Normal 29446-1) [facility] CenterXR [facility] 1 VW [id number] 22:27:15 1. No acute intrathoracic abnormality, specifically no detectableradiographic findings to suggest COVID-19 pneumonia. Disclaimer: Generally, the findings on chest imaging in COVID-19 are notspecific, and overlap with other infections, including influenza, H1N1,SARS and MERS.According to the Centers for Disease Control (CDC) and the [employer], viral testing remains the only specific method of diagnosiseven if CXR or CT findings are suggestive of COVID-19. PROCEDURE: CHEST XRAY oneview portable, CLINICAL INDICATION: cough COMPARISON: 12/15/2019 FINDINGS: Lungs: Lungs are clear. No suspicious abnormality is noted. Pleura: No pleural effusion or pneumothorax is seen. The heart is n ormal insize. No acute bony abnormality. Multiple surgical clips are seen superimposed over the right axilla andright breast as well as adjacent to the aortic knob and left upper lung. [facility], Radiant Results Inft User - 01/30/2020 5:28 PM CDTPROCEDURE: CHEST XRAY one view portable, CLINICAL INDICATION: cough COMPARISON: 12/15/2019FINDINGS:Lungs: Lungs are clear. No suspicious abnormality is noted.Pleura: No pleural effusion or pneumothorax is seen. The heart is normal insize.No acute bony abnormality.Multiple surgical clips are seen superimposed over the right axilla andright breast as well as adjacent to the aortic knob and left upper lung.IMPRESSION1. No acute intrathoracic abnormality, specifically no detectableradiographic findings to suggest COVID-19 pneumonia.Disclaimer: Generally, the findings on chest imaging in COVID-19 are notspecific, and overlap with other infections, including influenza, H1N1,SARS and MERS.According to the Centers for Disease Control (CDC) and the [employer], viral testing remains the only specific method of diagnosiseven if CXR or CT findings are suggestive of COVID-19.[facility]ADC / [facility] [id number] 22:22:00 Test Item Value Reference Range Interpretation Comments BENZO U (test code = Presumptive Negative A 4616460859) Positive TRACY U (test code = Negative Negative 0152795972) AMPHET (test code = Negative Negative 9276709468) THC (test code = Negative Negative 7602122778) METHADONE (test code Presumptive Negative A = 8745399339) Positive Meth U (test code = Negative Negative 4462602257) OPIATES (test code = Negative Negative 1096118176) Cocaine Metabolite Negative Negative (test code = 3433289062) PROPOXY (test code = Negative Negative 2148702369) Tric U (test code = Presumptive Negative A Confirma tion of 2910779238) Positive Presumptive Positive TCA result requires physician order and this will b e sent to referen ce lab. PCP (test code = Negative Negative 8750324657) OXYCOD (test code = Negative Negative 2282841769) NU (test code = Urine Drug Cutoff NU) Ranges Benzodiazepines: ? ? 150 ng/mLBarbiturates : ?200 ng/mLAmphetamine: ? 500 ng/mLCannabinoids : ?50 ?ng/mLMethadone: ? 200 ng/mLMethamphetam ine: ? ? 500 ng/mL Opiates: ? 100 ng/mL or 2000 ng/mLCocaine: ? 150 ng/mLPropoxyphene : ?300 ng/mLTricyclics: ?300 ng/mLOxycodone: ? 100 ng/mLPCP: ? 25 ?ng/mL The results are to be used only for medical (i.e., treatment) purposes. Unconfirmed screening results must not be used for non-medical purposes (e.g., employment testing, legal testing). Lab Interpretation Abnormal (test code = 38494-5) [facility] CenterUrinalysis2020-07-19 22:11:00 Test Item Value Reference Range Interpretation Comments APPEARANCE (test code = Clear Clear 5489072719) COLOR (test code = Yellow Yellow 4538558576) PH (test code = 4.8-8.0 2754324532) SP GRAVITY (test code = 1.003-1.030 2290188533) GLU U QUAL (test code = 500 mg/dL Normal A 3180413054) BLOOD (test code = Negative Negative 7654646971) KETONES (test code = Negative Negative 2961486955) PROTEIN (test code = Negative Negative 2887-8) UROBILIN (test code = 4.0 mg/dL Normal A 7751798293) BILIRUBIN (test code = Negative Negative 0740540784) NITRITE (test code = Negative Negative 3436813672) LEUK GUADALUPE (test code = Negative Negative 1017851849) RBC/HPF (test code = See_Comment [Autom ated message] 1837943324) The system [employer] generated this result transmit thong reference range : 0 - 3 HPF. The refe rence range was not u sed to interpret th is result as normal/abnormal . WBC/HPF (test code = <1 See_Comment [Autom ated message] 4302663241) The system [employer] generated this result transmit thong reference range : 0 - 5 HPF. The refe rence range was not u sed to interpret th is result as normal/abnormal . BACTERIA (test code = Few Negative A 6389932249) SQ EPITH (test code = HPF 1883459947) Lab Interpretation (test Abnormal code = 94375-4) [facility] [id number] 21:59:00 Test Item Value Reference Range Interpretation Comments TROPONIN I (test <0.012 See_Comment [Automated code = 5803714068) message] The system which generated this result transmitted reference range : <=0.034 ng/mL. The reference range was not used to interpr et this result as normal/abnormal . NU (test code = Equal or Less than NU) 0.034 ng/ml---Normal ?Note: Cardiac troponin begins to rise 3-4 hours after the onset of ischemia. Repeat in 4-6 hours if the sample was drawn within 3-4 hours of the onset of the symptom and found normal. Between 0.035 and 0.120 ng/mL--- Borderline. Questionable myocardial injury or necrosis ? ?Note: Serial measurement may be necessary to confirm or exclude the diagnosis of myocardial injury or necrosis; Clinical correlation (symptoms, EKGs, imaging studies, and others) required; Repeat in 4-6 hours if clinically indicated. ? Equal or Higher than 0.121 ng/mL---Abnormal. Myocardial Injury or Necrosis Likely ? Biotin has been reported to cause a negative bias, interpret results relative to patient's use of biotin. ? Lab Interpretation Normal (test code = 54124-7) [facility] CenterN-TERMINAL [id number] 21:56:00 Test Item Value Reference Range Interpretation Comments NT-proBNP (test code 149 pg/mL See_Comment H [Autom ated = 8804442372) message] The system which generated this result transmitted reference range : <=125. The reference range was not used to interpret this result as normal/abnormal . NU (test code = NU) Biotin has been reported to cause a negative bias, interpret results relative to patient's use of biotin. Lab Interpretation Abnormal (test code = 27534-9) [facility] CenterBasi Metabolic Panel (NA, K, CL, CO2, GLUCOSE, BUN, CREATININE, CA)2020-01-30 21:52:00 Test Item Value Reference Range Interpretation Comments NA (test code = 132 mmol/L 135-145 L 7291073691) K (test code = 5.1 mmol/L 3.5-5 H 0442432547) CL (test code = 99 mmol/L 98-108 0457931034) CO2 TOTAL (test code = 27 mmol/L 23-31 2934105700) AGAP (test code = 2-16 3298361139) BUN (test code = 22 mg/dL 7-23 8687492571) GLUCOSE (test code = 563 mg/dL 70-110 HH 1158069198) CREATININE (test code = 0.75 mg/dL 0.5-1.04 1310990444) CALCIUM (test code = 8.7 mg/dL 8.6-10.6 8715946961) eGFR Calculation mL/min/1.73m2 (Non-) (test code = 4612704819) eGFR Calculation mL/min/1.73m2 () (test code = 2352351415) NU (test code = NU) Association of Glomerular Filtration Rate (GFR) and Staging of Kidney Disease* + --+ --+ ------+| GFR (mL/min/1.73 m2) ?| With Kidney Damage ?| ?Without Kidney Damage+ --------+ --------+ +| ?>90 ?| ?Stage one ?| ? Normal ?+ ---+ ---+ -------+| ?60-89 ?| ?Stage two ?| ? Decreased GFR ? + --+ --+ ------+| ?30-59 ?| ?Stage three ?| ? Stage three ? + --+ --+ ------+| ?15-29 ?| ?Stage four ? | ? Stage four ?+ ---+ ---+ -------+| ?<15 (or dialysis) ? ?| ?Stage five ? | ? Stage five ?+ ---+ ---+ -------+ *Each stage assumes the associated GFR level has been in effect for at least three months. ?Stages 1 to 5, with or without kidney disease, indicate chronic kidney disease. Notes: Determination of stages one and two (with eGFR >59mL/min/1.73 m2) requires estimation of kidney damage for at least three months as defined by structural or functional abnormalities of the kidney, manifested by either:Pathological abnormalities or Markers of kidney damage (including abnormalities in the composition of the blood or urine or abnormalities in imaging tests). Lab Interpretation Abnormal (test code = 38529-9) [facility] CenterHepatic Function Panel (ALB, T.PRO, BILI T, BU/BC, ALT, AST, ALK PHOS)2020-01-30 21:49:00 Test Item Value Reference Range Interpretation Comments TOTAL BILI (test code = 1083610459) 0.9 mg/dL 0.1-1.1 BILI UNCON (test code = 3959611684) 0.8 mg/dL 0.1-1.1 BILI CONJ (test code = 9751661709) 0.0 mg/dL 0-0.3 T PROTEIN (test code = 5633201906) 7.4 g/dL 6.3-8.2 ALBUMIN (test code = 5913217050) 3.3 g/dL 3.5-5 L ALK PHOS (test code = 3901156814) 148 U/L 34-122 H ALTv (test code = 1742-6) 22 U/L 5-35 AST(SGOT) (test code = 5423560007) 42 U/L 13-40 H Lab Interpretation (test code = Abnormal 14523-5) [facility] CenterLipase [id number] 21:49:00 Test Item Value Reference Range Interpretation Comments LIPASE (test code = 7037706102) 86 U/L 0-220 Lab Interpretation (test code = Normal 83114-8) [facility] CenterCOVID-19 (ID NOW RAPID TESTING)2020-01-30 21:44:00 Test Item Value Reference Range Interpretation Comments SARS-CoV-2 Rapid ID NOW Positive Not Detected A (test code = 97371-7) NU (test code = NU) ID NOW COVID-19 Assay is an isothermal nucleic acid amplification test intended for the qualitative detection of nucleic acid from SARS-CoV-2 viral RNA in nasopharyngeal (REWIND OPERATOR) specimens. It is used under Emergency Use Authorization (EUA) by FDA. The limit of detection (LOD) of the assay is 125 Genome Equivalents/mL. A positive result is indicative of the presence of SARS-CoV-2 RNA. ?Clinical correlation with patient history and other diagnostic [...] for repeat patient testing if clinically indicated. Lab Interpretation Abnormal (test code = 53722-8) [facility] CenterCBC with [id number] 21:40:00 Test Item Value Reference Range Interpretation Comments WBC (test code = See_Comment L [Automated 2090-2) message] The sy stem which generated this result transmitted reference range : 4.30 - 11.10 10*3/?L. The reference range was not used to interpret this result as normal/abnormal . RBC (test code = See_Comment L [Automated 769-8) message] The sy stem which generated this result transmitted reference range : 3.93 - 5.25 10*6/?L. The reference range was not used to interpret this result as normal/abnormal . HGB (test code = 10.5 g/dL 11.6-15 L 718-7) HCT (test code = 32.6 % 35.7-45.2 L 4544-3) MCV (test code = 94.5 fL 80.6-95.5 787-2) MCH (test code = 30.4 pg 25.9-32.8 785-6) MCHC (test code = 32.2 g/dL 31.6-35.1 786-4) RDW-SD (test code = 52.6 fL 39-49.9 H 67009-5) RDW-CV (test code = 15.6 % 12-15.5 H 788-0) PLT (test code = See_Comment LL [Automated 777-3) message] The sy stem which generated this result transmitted reference range : 166 - 358 10*3/ ?L. The reference r pardeep was not used to interpret this result as normal/abnormal . MPV (test code = 11.4 fL 9.5-12.9 28936-3) IPF % (test code = 4.6 % 1.3-7.7 Platelet count [id number]) measured by fluorescence method. NRBC/100 WBC (test See_Comment [Automat ed code = 0544111558) message] The system which generated this result transmitted reference range : 0.0 - 10.0 /100 WBCs. The refer ence range was not u sed to interpret th is result as normal/abnormal . NRBC x10^3 (test code <0.01 See_Comment [Auto mated = 9181996320) message] The s ystem which generated this result transmitted reference range : 10*3/?L. The reference range was not used to interpret this result as normal/abnormal . GRAN MAT (NEUT) % 62.3 % (test code = 770-8) IMM GRAN % (test code 0.30 % = 8429006838) LYMPH % (test code = 30.3 % 736-9) MONO % (test code = 5.8 % 5905-5) EOS % (test code = 0.8 % 713-8) BASO % (test code = 0.5 % 706-2) GRAN MAT x10^3(ANC) 2.47 10*3/uL 1.88-7.09 (test code = 6990573986) IMM GRAN x10^3 (test <0.03 0-0.06 code = 1395749576) LYMPH x10^3 (test code 1.20 10*3/uL 1.32-3.29 L = 731-0) MONO x10^3 (test code 0.23 10*3/uL 0.33-0.92 L = 742-7) EOS x10^3 (test code = 0.03 10*3/uL 0.03-0.39 711-2) BASO x10^3 (test code <0.03 0.01-0.07 = 704-7) Lab Interpretation Abnormal (test code = 58539-9) [facility] CenterACUTE CARE VENOUS BLOOD [id number] 20:50:00 Test Item Value Reference Range Interpretation Comments PH (test code = 7.32-7.42 H 5867602854) PCO2 VALERIANO (test code = See_Comment L [Auto mated message] 2890205681) The system [employer] generated this result transmitted ref erence range: 41 - 51 mmHg. The reference r pardeep was not used to interpret this result as normal/abnor mal. PO2 VALERIANO (test code = See_Comment HH [Autom ated message] 1342592338) The system [employer] generated this result transmitted ref erence range: 25 - 40 mmHg. The reference r pardeep was not used to interpret this result as normal/abnor mal. HCO3 VALERIANO (test code = See_Comment [Auto mated message] 0348280503) The system [employer] generated this result transmitted ref erence range: 24 - 28 mEq/L. The reference r pardeep was not used to interpret this result as normal/abnor mal. AC VBE(BEAKER) (test mEq/L code = 8019574797) Lab Interpretation (test Abnormal code = 17399-4) [facility] CenterCT ABDOMEN PELVIS W [id number] 04:55:51 1. ?Short segments of colonic wall thickening with engorgement of the vasarecta and surrounding inflammatory stranding at the hepatic flexure andsplenic flexure. These findings are favored to represent colitis which maybe infectious or inflammatory rather than hepatic colopathy. 2. ?Changes of cirrhos is with sequelae of portal hypertension includingsmall volume ascites, small gastroesophageal varices, and splenomegaly. 3. ?Irregular hypoattenuating lesion at the inferior aspect of segment ,essentially unchanged from the October 2019. This finding likely representsposttreatment change from the residual treated segment HCC. Attention onfollow-up. 4. ?Skin thickening noted over the left breast, correlation withmammography is recommended. Preliminary Report Dictated by Resident: Liz Morley ?MD Shayne., have reviewed this study and agree with theabove report.EXAM: CT ABDOMEN AND PELVIS WITH CONTRAST HISTORY: Abdominal distention COMPARISON: 11/30/2019. TECHNIQUE AND FINDINGS: Contiguous axial imaging from the level of the lungbases through the pubic symphysis was performed afterthe uncomplicatedadministration of 120 cc of intravenous Omnipaque contrast. Coronal andsagittal reconstructions were obtained. ?Auto mA and/or iterativereconstruction were used to reduce radiation dose. FINDINGS: Subsegmental atelectasis is noted in the lingula, right middle lobe, andlower lobes. Calcified granulomas are present within both lower lobes. The liver is enlarged measuring 20.3 cm in thecraniocaudal dimension.Cirrhotic liver morphology. Nodular contour. There is an irregular,wedge-shaped 5.5 x 1.8 cm hypoattenuating lesion in segment with areasof subcapsular retraction. Punctate calcifications in segment V and . Noadditional focal lesions are seen. Status post cholecystectomy. Milddilatation of the common bile duct to 10 mm, likely secondary to reservoirphenomenon. The spleen is enlarged measuring 15.1 cm in the craniocaudal dimension. Theadrenals and pancreas are unremarkable. 2.9 cm right interpolar regionrenal cyst. Additional cortical hypodensities are too small to accuratelycharacterize. Small sliding-type hiatal hernia. There is a short segment of thickenedtransverse colon at the level of the hepatic flexure with engorgement ofthe vasa recta and mild surrounding inflammatory changes. A similarthickened loop of bowel with surrounding inflammatory changes is noted atthe splenic flexure (2:63). Small volume perihepatic ascites. A small amount of fluid tracks along theleft paracolic gutter. Prominent portacaval lymph nodes measure up to 1.3cm. A lymph node at the portahepatis measures 1.2 cm in the short axis. Moderate calcified and noncalcified plaque affect the aortoiliacvasculature. Small esophageal varices suspected. Body wall anasarca. Mild spondylosis at L5-S1. Scarring along the anteriorabdominal wall is likely postsurgical. There is soft tissue density alongthe medial margin of the bilateral breasts, more prominent on the right,likely represent postsurgical change. There are adjacent surgical staplesbilaterally as well as in the axilla. Skin thickening isnoted over theleft breast. [facility], Radiant Results Inft User - 12/15/2019 11:56 PM CDTEXAM: CT ABDOMEN AND PELVIS WITH CONTRASTHISTORY: Abdominal distentionCOMPARISON: 11/30/2019.TECHNIQUE AND FINDINGS:Contiguous axial imaging from the level of the lungbases through the pubic symphysis was performed after the uncomplicatedadministration of 120 cc of intravenous Omnipaque contrast. Coronal andsagittalreconstructions were obtained. Auto mA and/or iterativereconstruction were used to reduce radiationdose.FINDINGS:Subsegmental atelectasis is noted in the lingula, right middle lobe, andlower lobes. Ca lcified granulomas are present within both lower lobes.The liver is enlarged measuring 20.3 cm in the craniocaudal dimension.Cirrhotic liver morphology. Nodular contour. There is an irregular,wedge-shaped 5.5 x 1.8 cm hypoattenuating lesion in segment with areasof subcapsular retraction. Punctate ca lcifications in segment V and . Noadditional focal lesions are seen. Status post cholecystectomy. Milddilatation of the common bile duct to 10 mm, likely secondary to reservoirphenomenon.The spleen is enlarged measuring 15.1 cm in the craniocaudal dimension. Theadrenals and pancreas are unremarkable. 2.9 cm right interpolar regionrenal cyst. Additional cortical hypodensities are too small to accuratelycharacterize.Small sliding-type hiatal hernia. There is a short segment of thickenedtransverse colon at the level of the hepatic flexure with engorgement ofthe vasa recta and mild surrounding inflammatory changes. A similarthickened loop of bowel with surrounding inflammatory changes is noted atthesplenic flexure (2:63).Small volume perihepatic ascites. A small amount of fluid tracks along theleft paracolic gutter. Prominent portacaval lymph nodes measure up to 1.3cm. A lymph node at the gurwinder hepatis measures 1.2 cm in the short axis.Moderate calcified and noncalcified plaque affect the aortoil iacvasculature. Small esophageal varices suspected.Body wall anasarca. Mild spondylosis at L5-S1. Scarring along the anteriorabdominal wall is likely postsurgical. There is soft tissue density alongthemedial margin of the bilateral breasts, more prominent on the right,likely represent postsurgical [place]. There are adjacent surgical staplesbilaterally as well as in the axilla. Skin thickening is noted over theleft breast. IMPRESSION1. Short segments of colonic wall thickening with engorgement of the vasarecta and surrounding inflammatory stranding at the hepatic flexure andsplenic flexure. These findings are favored to represent colitis which maybe infectious or inflammatory rather than hepatic colopathy.2. Changes of cirrhosis with sequelae of portal hypertension includingsmall volume ascites, small gastroesophageal varices, and splenomegaly.3. Irregular hypoattenuating lesion at the inferior aspect of segment ,essentially unchanged from the October 2019. This finding likely representsposttreatment change from the residual treated segment HCC. Attention onfollow-up.4. Skin thickening noted over the left breast, correlation withmammography is recommended.Preliminary Report Dictated by Resident: Liz Hameed MD., have reviewed this study and agree with theabove report.[facility] 2 Views 2019-12-16 02:49:00 No acute cardiopulmonary process. Preliminary Report Dictated by Resident: Liz Sheffield MD., have reviewed this study and agree with theabove report.XR CHEST 2 VW Comparison: 11/09/2019 History: sob Findings: The lungs exhibit mildly prominent basilar reticular nodular opacities. Nopleural effusion, focal consolidation, or pneumothorax is identified.Surgical sly are scattered over the thorax. The cardiomediastinal silhouette is within normal limits for size. No acute osseous abnormality is present. [facility], Radiant Results Inft User - 12/15/2019 9:50 PM CDTXR CHEST2 VWComparison: 11/09/2019History: sob Findings:The lungs exhibit mildly prominent basilar reticular nodular opacities. Nopleural effusion, focal consolidation, or pneumothorax is identified.Surgical sly are scattered over the thorax.The cardiomediastinal silhouette is within normal limits for size.No acute osseous abnormality is present.IMPRESSIONNo acute cardiopulmonary process.Preliminary Report Dictated by Resident: Liz Block MD., have reviewed this study and agree with theabove report. [facility] WITH [id number] 01:39:00 Test Item Value Reference Range Interpretation Comments WBC (test code = See_Comment L [Automated 6690-2) message] The sy stem which generated this result transmitted reference range : 4.30 - 11.10 10*3/?L. The reference range was not used to interpret this result as normal/abnormal . RBC (test code = See_Comment L [Automated 789-8) message] The sy stem which generated this result transmitted reference range : 3.93 - 5.25 10*6/?L. The reference range was not used to interpret this result as normal/abnormal . HGB (test code = 9.3 g/dL 11.6-15 L 718-7) HCT (test code = 29.0 % 35.7-45.2 L 4544-3) MCV (test code = 95.1 fL 80.6-95.5 787-2) MCH (test code = 30.5 pg 25.9-32.8 785-6) MCHC (test code = 32.1 g/dL 31.6-35.1 786-4) RDW-SD (test code = 64.8 fL 39-49.9 H 15287-5) RDW-CV (test code = 19.3 % 12-15.5 H 788-0) PLT (test code = See_Comment L [Automated 777-3) message] The sy stem which generated this result transmitted reference range : 166 - 358 10*3/ ?L. The reference r pardeep was not used to interpret this result as normal/abnormal . MPV (test code = 10.0 fL 9.5-12.9 99462-4) IPF % (test code = 2.2 % 1.3-7.7 Platelet count [id number]) measured by fluorescence method. NRBC/100 WBC (test See_Comment [Automat ed code = 6859808979) message] The system which generated this result transmitted reference range : 0.0 - 10.0 /100 WBCs. The refer ence range was not u sed to interpret th is result as normal/abnormal . NRBC x10^3 (test code <0.01 See_Comment [Auto mated = 7384692712) message] The s ystem which generated this result transmitted reference range : 10*3/?L. The reference range was not used to interpret this result as normal/abnormal . GRAN MAT (NEUT) % 60.1 % (test code = 770-8) IMM GRAN % (test code 0.50 % = 5257177715) LYMPH % (test code = 29.5 % 736-9) MONO % (test code = 9.2 % 5905-5) EOS % (test code = 0.5 % 713-8) BASO % (test code = 0.2 % 706-2) GRAN MAT x10^3(ANC) 2.43 10*3/uL 1.88-7.09 (test code = 5486503441) IMM GRAN x10^3 (test <0.03 0-0.06 code = 7044939277) LYMPH x10^3 (test code 1.19 10*3/uL 1.32-3.29 L = 731-0) MONO x10^3 (test code 0.37 10*3/uL 0.33-0.92 = 742-7) EOS x10^3 (test code = <0.03 0.03-0.39 L 711-2) BASO x10^3 (test code <0.03 0.01-0.07 = 704-7) POLYCHROMASIA (test 2+ See_Comment [Automa thong code = 25568-3) message] The system which generated this result transmitted reference range : 2+. The referen ce range was not u sed to interpret th is result as normal/abnormal . WENDYAUX (test code = Present See_Comment A [Auto mated 7797-4) message] The sy stem which generated this result transmitted reference range : (none). The reference range was not used to interpret this result as normal/abnormal . Lab Interpretation Abnormal (test code = 45711-1) [facility] Metabolic Panel (NA, K, CL, CO2, GLUCOSE, BUN, CREATININE, CA)2019-12-16 01:20:00 Test Item Value Reference Range Interpretation Comments NA (test code = 133 mmol/L 135-145 L 4942870973) K (test code = 4.4 mmol/L 3.5-5 3588853316) CL (test code = 105 mmol/L 98-108 0095402940) CO2 TOTAL (test code = 28 mmol/L 23-31 2691881173) AGAP (test code = <1 2-16 L 1952502134) BUN (test code = 16 mg/dL 7-23 2291605844) GLUCOSE (test code = 291 mg/dL 70-110 H 1026410101) CREATININE (test code = 0.66 mg/dL 0.5-1.04 3722254089) CALCIUM (test code = 8.4 mg/dL 8.6-10.6 L 8017918111) eGFR Calculation mL/min/1.73m2 (Non-) (test code = 0731217376) eGFR Calculation mL/min/1.73m2 () (test code = 7886936015) NU (test code = NU) Association of Glomerular Filtration Rate (GFR) and Staging of Kidney Disease* + --+ --+ ------+| GFR (mL/min/1.73 m2) ?| With Kidney Damage ?| ?Without Kidney Damage+ --------+ --------+ +| ?>90 ?| ?Stage one ?| ? Normal ?+ ---+ ---+ -------+| ?60-89 ?| ?Stage two ?| ? Decreased GFR ? + --+ --+ ------+| ?30-59 ?| ?Stage three ?| ? Stage three ? + --+ --+ ------+| ?15-29 ?| ?Stage four ? | ? Stage four ?+ ---+ ---+ -------+| ?<15 (or dialysis) ? ?| ?Stage five ? | ? Stage five ?+ ---+ ---+ -------+ *Each stage assumes the associated GFR level has been in effect for at least three months. ?Stages 1 to 5, with or without kidney disease, indicate chronic kidney disease. Notes: Determination of stages one and two (with eGFR >59mL/min/1.73 m2) requires estimation of kidney damage for at least three months as defined by structural or functional abnormalities of the kidney, manifested by either:Pathological abnormalities or Markers of kidney damage (including abnormalities in the composition of the blood or urine or abnormalities in imaging tests). Lab Interpretation Abnormal (test code = 09040-9) [facility] [id number] 01:16:00 Test Item Value Reference Range Interpretation Comments TROPONIN I (test <0.012 See_Comment [Automated code = 4815012299) message] The system which generated this result transmitted reference range : <=0.034 ng/mL. The reference range was not used to interpr et this result as normal/abnormal . NU (test code = Equal or Less than NU) 0.034 ng/ml---Normal ?Note: Cardiac troponin begins to rise 3-4 hours after the onset of ischemia. Repeat in 4-6 hours if the sample was drawn within 3-4 hours of the onset of the symptom and found normal. Between 0.035 and 0.120 ng/mL--- Borderline. Questionable myocardial injury or necrosis ? ?Note: Serial measurement may be necessary to confirm or exclude the diagnosis of myocardial injury or necrosis; Clinical correlation (symptoms, EKGs, imaging studies, and others) required; Repeat in 4-6 hours if clinically indicated. ? Equal or Higher than 0.121 ng/mL---Abnormal. Myocardial Injury or Necrosis Likely ? Biotin has been reported to cause a negative bias, interpret results relative to patient's use of biotin. ? Lab Interpretation Normal (test code = 33126-6) [facility] Center[facility]AL [id number] 01:13:00 Test Item Value Reference Range Interpretation Comments NT-proBNP (test code 407 pg/mL See_Comment H [Autom ated = 8878981973) message] The system which generated this result transmitted reference range : <=125. The reference range was not used to interpret this result as normal/abnormal . NU (test code = NU) Biotin has been reported to cause a negative bias, interpret results relative to patient's use of biotin. Lab Interpretation Abnormal (test code = 11626-0) [facility] CenterCOVID[facility] (ID NOW RAPID TESTING)2019-12-16 01:07:00 Test Item Value Reference Range Interpretation Comments SARS-CoV-2 Rapid ID NOW Not Detected Not Detected (test code = 11238-9) NU (test code = NU) ID NOW COVID-19 Assay is an isothermal nucleic acid amplification test intended for the qualitative detection of nucleic acid from SARS-CoV-2 viral RNA in nasopharyngeal (REWIND OPERATOR) specimens. It is used under Emergency Use Authorization (EUA) by FDA. The limit of detection (LOD) of the assay is 125 Genome Equivalents/mL. A positive result is indicative of the presence of SARS-CoV-2 RNA. ?Clinical correlation with patient history and other diagnostic [...] for repeat patient testing if clinically indicated. Lab Interpretation Normal (test code = 09425-3) [facility] CenterPROTHROMBIN TIME / [id number] 01:05:00 Test Item Value Reference Range Interpretation Comments PROTIME PATIENT (test See_Comment [Auto mated message] code = 5964-2) The system [employer] generated this result transmitted ref erence range: 12.0 - 1 4.7 Seconds. The re ference range was not u sed to interpret this result as normal/abnor mal. INR (test code = 6301-6) Nor mal INR <1.1; Warfarin Therap eutic range 2.0 to 3. 0 or 2.5 to 3.5, dep ending upon the indica tions. Lab Interpretation (test Normal code = 54454-1) [facility] CenterHep[facility] Function Panel (ALB, T.PRO, BILI T, BU/BC, ALT, AST, ALK PHOS)2019-12-16 01:04:00 Test Item Value Reference Range Interpretation Comments TOTAL BILI (test code = 6342179212) 1.6 mg/dL 0.1-1.1 H BILI UNCON (test code = 2056382372) 1.2 mg/dL 0.1-1.1 H BILI CONJ (test code = 3345902707) 0.0 mg/dL 0-0.3 T PROTEIN (test code = 8836875487) 6.5 g/dL 6.3-8.2 ALBUMIN (test code = 4839155985) 2.9 g/dL 3.5-5 L ALK PHOS (test code = 3154952601) 175 U/L 34-122 H ALTv (test code = 1742-6) 26 U/L 5-35 AST(SGOT) (test code = 4829991337) 49 U/L 13-40 H Lab Interpretation (test code = Abnormal 05531-5) [facility] CenterLipase [id number] 01:04:00 Test Item Value Reference Range Interpretation Comments LIPASE (test code = 1746379057) 76 U/L 0-220 Lab Interpretation (test code = Normal 54971-9) [facility] CenterUrinalysis2020-06-04 00:58:00 Test Item Value Reference Range Interpretation Comments APPEARANCE (test code = Hazy Clear A 6296076998) COLOR (test code = Yellow Yellow 6721644765) PH (test code = 4.8-8.0 7341207337) SP GRAVITY (test code = 1.003-1.030 0684064144) GLU U QUAL (test code = 500 mg/dL Normal A 1837327559) BLOOD (test code = Negative Negative 5504863312) KETONES (test code = Negative Negative 1727356096) PROTEIN (test code = 30 mg/dL Negative A 2887-8) UROBILIN (test code = 2.0 mg/dL Normal A 0530770187) BILIRUBIN (test code = Negative Negative 9223667946) NITRITE (test code = Negative Negative 1905613855) LEUK GUADALUPE (test code = Negative Negative 6094207013) RBC/HPF (test code = See_Comment [Autom ated message] 7011219979) The system [employer] generated this result transmit thong reference range : 0 - 3 HPF. The refe rence range was not u sed to interpret th is result as normal/abnormal . WBC/HPF (test code = See_Comment [Autom ated message] 2352551908) The system [employer] generated this result transmit thong reference range : 0 - 5 HPF. The refe rence range was not u sed to interpret th is result as normal/abnormal . BACTERIA (test code = Negative Negative 8589839469) MUCOUS (test code = Slight Negative LPF A 4179751440) SQ EPITH (test code = HPF 2767256068) HYAL CAST (test code = See_Comment [Aut omated message] 4050957135) The system [employer] generated this result transmit thong reference range : <=2 LPF. The refere nce range was not u sed to interpret th is result as normal/abnormal . Lab Interpretation (test Abnormal code = 96258-3) [facility] CenterPOWY Test, [id number] 00:26:00 Test Item Value Reference Range Interpretation Comments POCT PREG (test code = 1605) negative On board controls acceptable with present C Line (test code = 3574) POCT PREG LOT # (test code = 3575) [id number] POCT PREG TEST DATE (test 02-10-2021 code = 3576) Lab Interpretation (test code = Normal 87260-2) [facility] ABDOMEN PELVIS W [id number] 19:20:42CT Abdomen and Pelvis with intravenous contrast. CLINICAL HISTORY: Acute generalized abdominal pain.DOSE: Up-to-date CT equipment and radiation dose reduction techniques wereemployed. CTDIvol: 7.09 mGy. DLP: 368 mGy-cm. TECHNIQUE : Contiguous axial imaging from the level of the lung basesthrough the pubic symphysis were performed after the uncomplicatedadministration of Omnipaque contrast material.Coronal and sagittalreconstructions were obtained. Auto mA and/or iterative reconstruction wereused to reduce radiation dose. FINDINGS: Comparison is made with previous CT scans of 11/09/2019 as well as. Lower lungs: Minimal fibrosis in the right lower lung, lingula and rightmiddle lobe. Calcified granuloma in the lingula segment and anterior basalright lower lung. No pleural effusion or pericardial effusion. Possibleshort sliding hiatal hernia and small esophageal varices. Liver, Gallbladder and Spleen: S/P cholecystectomy. Liver is enlarged, 19.4cm and showed an indeterminate low-density lesion of 5.4 x 1.8 x 3(transverse x AP x length) cm size in the right lobe. Undulating serosalsurface of the liver is consistent with chronic primary liver disease withportal hypertension causing splenomegaly. Spleen is at 18 x 6 cm. Dilatedportal venous system noted. Portal vein is patent. Peritoneum: ?No free air or free fluid. No lymphadenopathy. Pancreas and Adrenals: ?Unremarkable pancreas and right adrenal gland. Mildnonspecific left adrenal gland hypertrophy noted. Kidneys and Ureters: ?No visible calculi in the renal collecting systems. No hydroureter or hydronephrosis. No enhancing kidney lesions are seen.Bosniak type I cystic lesion of 2.6 cm size in the lateral interpolar rightkidney noted. Vessels: Atherosclerosis. No AAA. Retroperitoneum: No abnormal fluid or lymphadenopathy. Bowel: Pericolonic congestion surrounding cecum and descending colon seenin the previous study is improved. This time there is minimal congestionpresent around the ascending colon. 3.5 cm size large diverticulum noted along the medial border of theduodenal C-loop just distal to the ampulla. Bladder and Reprodu ctive Organs: Hysterectomy. No gross pathology in theunopacified urinary bladder. Bones: Moderate degenerative disc disease at L5-S1 and old fracture ofupper plate of L2 with loss of 40% of its height in the central portion. Soft tissues: Abdominal scar tissue noted in the suprapubic region fromprevious surgery. An irregular shaped fat containing 2.5 cm size umbilicalhernia. CONCLUSION:1. No acute intra-abdominal or pelvic abnormalities detected.2. Interval improvement noted in the congestion of pericolonic fatsurrounding a sending colon compared to the previous study. Mucosalenhancement is still pr esent in the right cerebral large bowel. This couldbe due to nonspecific colitis. Mild constipation noted. No significantdiverticular disease3. Hepatosplenomegaly with hepatic architecture suggestive of chronicprimary liver disease, possibly cirrhosis with portal hypertension andesophageal varices.4. W edge shaped lesion in the lower right lobe of the liver is difficult toaccurately characterize. It is unchanged when compared with the recent CTscans of 11/09/2019 and 11/11/2019.5. S/P cholecystectomy and hysterectomy. [facility], Radiant Results Inft User - 11/30/2019 2:21 PM CDTCT Abdomen and Pelvis with intravenous contrast.CLINICAL HISTORY: Acute generalized abdominal pain.DOSE: Up-to-date CT equipment and radiation dose reduction techniques wereemployed. CTDIvol: 7.09 mGy. DLP: 368 mGy-cm.TECHNIQUE : Contiguous axial imaging from the level of the lung basesthrough the pubic symphysis were performed after the uncomplicatedadministration of Omnipaque contrast material. Coronal and sagittalreconstructions were obtained. Auto mA and/or iterative reconstruction wereused to reduce radiation dose.FINDINGS: Comparison is made with previous CT scans of 11/09/2019 as well as11/11/2019.Lower lungs: Minimal fibrosis in the right lower lung, lingula and rightmiddle lobe. Calcified granuloma in the lingula segment and anterior basalright lower lung. No pleural effusion or pericardial effusion. Possibleshort sliding hiatal hernia and small esophageal varices.Liver, Gallbladder and Spleen: S/P cholecystectomy. Liver is enlarged, 19.4cm and showed an indeterminate low-density lesion of 5.4 x 1.8 x 3(transver se x AP x length) cm size in the right lobe. Undulating serosalsurface of the liver is consistent with chronic primary liver disease withportal hypertension causing splenomegaly. Spleen is at 18 x 6 cm. Dilatedportal venous system noted. Portal vein is patent.Peritoneum: No free air or free fluid. No lymphadenopathy.Pancreas and Adrenals: Unremarkable pancreas and right adrenal gland. Mildnonspecific left adrenal gland hypertrophy noted.Kidneys and Ureters: No visible calculi in the renal collecting systems. No hydroureter or hydronephrosis. No enhancing kidney lesions are seen.Bosniak type I cystic lesion of 2.6 cm size in the lateral interpolar rightkidney noted. Vessels: Atherosclerosis. No AAA.Retroperitoneum: No abnormal fluid or lymphadenopathy.Bowel: Pericolonic congestion surrounding cecum and descending colon seenin the previous study is improved. This time there is minimal congestionpresent around the ascending colon.3.5 cm size large diverticulum noted along the medial border of theduodenal C-loop just distal to the ampulla.Bladder and Reproductive Organs: Hysterectomy. No gross pathology in theunopacified urinary bladder.Bones: Moderate degenerative disc disease at L5- S1 and old fracture ofupper plate of L2 with loss of 40% of its height in the central portion.Soft tissues: Abdominal scar tissue noted in the suprapubic region fromprevious surgery. An irregular shaped fat containing 2.5 cm size umbilicalhernia.CONCLUSION:1. No acute intra-abdominal or pelvic abnormalities detected.2. Interval improvement noted in the congestion of pericolonic fatsurrounding a sending colon compared to the previous study. Mucosalenhancement is still present in the right cerebral large bowel.This couldbe due to nonspecific colitis. Mild constipation noted. No significantdiverticular disease3. Hepatosplenomegaly with hepatic architecture suggestive of chronicprimary liver disease, possibly cirrhosis with portal hypertension andesophageal varices.4. Wedge shaped lesion in the lower right lob e of the liver is difficult toaccurately characterize. It is unchanged when compared with the recentCTscans of 11/09/2019 and 11/11/2019.5. S/P cholecystectomy and hysterectomy.[facility] CenterComplete Metabolic [id number] 19:15:00 Test Item Value Reference Range Interpretation Comments NA (test code = 132 mmol/L 135-145 L 3399147875) K (test code = 5.4 mmol/L 3.5-5 H 5082867069) CL (test code = 99 mmol/L 98-108 2051463272) CO2 TOTAL (test code = 25 mmol/L 23-31 4374375869) AGAP (test code = 2-16 6454706127) BUN (test code = 15 mg/dL 7-23 0527598537) GLUCOSE (test code = 502 mg/dL 70-110 HH 9013431276) CREATININE (test code = 0.71 mg/dL 0.5-1.04 2218611087) TOTAL BILI (test code = 1.4 mg/dL 0.1-1.1 H 9061667324) CALCIUM (test code = 9.2 mg/dL 8.6-10.6 0505849175) T PROTEIN (test code = 7.4 g/dL 6.3-8.2 7375532177) ALBUMIN (test code = 3.5 g/dL 3.5-5 9379037378) ALK PHOS (test code = 185 U/L 34-122 H 3322604174) ALTv (test code = 31 U/L 5-35 1742-6) AST(SGOT) (test code = 42 U/L 13-40 H 7116511594) eGFR Calculation mL/min/1.73m2 (Non-) (test code = 0754470881) eGFR Calculation mL/min/1.73m2 () (test code = 2889901196) NU (test code = NU) Association of Glomerular Filtration Rate (GFR) and Staging of Kidney Disease* + --+ --+ ------+| GFR (mL/min/1.73 m2) ?| With Kidney Damage ?| ?Without Kidney Damage+ --------+ --------+ +| ?>90 ?| ?Stage one ?| ? Normal ?+ ---+ ---+ -------+| ?60-89 ?| ?Stage two ?| ? Decreased GFR ? + --+ --+ ------+| ?30-59 ?| ?Stage three ?| ? Stage three ? + --+ --+ ------+| ?15-29 ?| ?Stage four ? | ? Stage four ?+ ---+ ---+ -------+| ?<15 (or dialysis) ? ?| ?Stage five ? | ? Stage five ?+ ---+ ---+ -------+ *Each stage assumes the associated GFR level has been in effect for at least three months. ?Stages 1 to 5, with or without kidney disease, indicate chronic kidney disease. Notes: Determination of stages one and two (with eGFR >59mL/min/1.73 m2) requires estimation of kidney damage for at least three months as defined by structural or functional abnormalities of the kidney, manifested by either:Pathological abnormalities or Markers of kidney damage (including abnormalities in the composition of the blood or urine or abnormalities in imaging tests). Lab Interpretation Abnormal (test code = 72736-1) [facility] WITH [id number] 19:05:00 Test Item Value Reference Range Interpretation Comments WBC (test code = See_Comment [Automated 7212-2) message] The sy stem which generated this result transmitted reference range : 4.30 - 11.10 10*3/?L. The reference range was not used to interpret this result as normal/abnormal . RBC (test code = See_Comment L [Automated 099-8) message] The sy stem which generated this result transmitted reference range : 3.93 - 5.25 10*6/?L. The reference range was not used to interpret this result as normal/abnormal . HGB (test code = 11.6 g/dL 11.6-15 718-7) HCT (test code = 34.5 % 35.7-45.2 L 4544-3) MCV (test code = 91.5 fL 80.6-95.5 787-2) MCH (test code = 30.8 pg 25.9-32.8 785-6) MCHC (test code = 33.6 g/dL 31.6-35.1 786-4) RDW-SD (test code = 58.3 fL 39-49.9 H 42233-5) RDW-CV (test code = 17.5 % 12-15.5 H 788-0) PLT (test code = See_Comment L [Automated 777-3) message] The sy stem which generated this result transmitted reference range : 166 - 358 10*3/ ?L. The reference r pardeep was not used to interpret this result as normal/abnormal . MPV (test code = 10.0 fL 9.5-12.9 59413-7) IPF % (test code = 3.1 % 1.3-7.7 Platelet count 8392125496) measured by fluorescence method. NRBC/100 WBC (test See_Comment [Automat ed code = 3942236761) message] The system which generated this result transmitted reference range : 0.0 - 10.0 /100 WBCs. The refer ence range was not u sed to interpret th is result as normal/abnormal . NRBC x10^3 (test code <0.01 See_Comment [Auto mated = 3923384005) message] The s ystem which generated this result transmitted reference range : 10*3/?L. The reference range was not used to interpret this result as normal/abnormal . GRAN MAT (NEUT) % 72.1 % (test code = 770-8) IMM GRAN % (test code 0.50 % = 1930983353) LYMPH % (test code = 16.7 % 736-9) MONO % (test code = 9.4 % 5905-5) EOS % (test code = 0.8 % 713-8) BASO % (test code = 0.5 % 706-2) GRAN MAT x10^3(ANC) 4.43 10*3/uL 1.88-7.09 (test code = 1357984759) IMM GRAN x10^3 (test 0.03 10*3/uL 0-0.06 code = 9704886176) LYMPH x10^3 (test code 1.03 10*3/uL 1.32-3.29 L = 731-0) MONO x10^3 (test code 0.58 10*3/uL 0.33-0.92 = 742-7) EOS x10^3 (test code = 0.05 10*3/uL 0.03-0.39 711-2) BASO x10^3 (test code 0.03 10*3/uL 0.01-0.07 = 704-7) Lab Interpretation Abnormal (test code = 20806-8) [facility] CenterLip[facility], [id number] 19:02:00 Test Item Value Reference Range Interpretation Comments LIPASE (test code = 0636945909) 69 U/L 0-220 Lab Interpretation (test code = Normal 41620-8) [facility] CenterUrinalysis2020-05-19 18:38:00 Test Item Value Reference Range Interpretation Comments APPEARANCE (test code = Clear Clear 8385253135) COLOR (test code = Yellow Yellow 8715256080) PH (test code = 4.8-8.0 4864524975) SP GRAVITY (test code = 1.003-1.030 4086285086) GLU U QUAL (test code = 500 mg/dL Normal A 8257750251) BLOOD (test code = Negative Negative 5450659912) KETONES (test code = Negative Negative 3851710672) PROTEIN (test code = Negative Negative 2887-8) UROBILIN (test code = Normal Normal 6352228357) BILIRUBIN (test code = Negative Negative 4652863788) NITRITE (test code = Negative Negative 2260348876) LEUK GUADALUPE (test code = Negative Negative 9309705804) RBC/HPF (test code = See_Comment [Autom ated message] 9326246013) The system [employer] generated this result transmit thong reference range : 0 - 3 HPF. The refe rence range was not u sed to interpret th is result as normal/abnormal . WBC/HPF (test code = <1 See_Comment [Autom ated message] 4639724538) The system [employer] generated this result transmit thong reference range : 0 - 5 HPF. The refe rence range was not u sed to interpret th is result as normal/abnormal . BACTERIA (test code = Negative Negative 7726306448) SQ EPITH (test code = HPF 8503194235) Lab Interpretation (test Abnormal code = 12416-4) [facility] Center[facility] GLUCOSE (AUTOMATED)2019-11-16 11:03:00 Test Item Value Reference Range Interpretation Comments POCT GLU (test code = 2873754797) 272 mg/dL 70-110 H Lab Interpretation (test code = Abnormal 11329-7) [facility] CenterPROLACTIN2020-05-05 03:20:00 Test Item Value Reference Range Interpretation Comments PROLACTIN (test code = 8765858767) 8.1 ng/mL 2.7-19.6 Lab Interpretation (test code = Normal 97924-4) [facility] GLUCOSE (AUTOMATED)2019-11-16 03:13:00 Test Item Value Reference Range Interpretation Comments POCT GLU (test code = 6357240840) 295 mg/dL 70-110 H Lab Interpretation (test code = Abnormal 23509-3) [facility] CenterTROPONIN [id number] 02:15:00 Test Item Value Reference Range Interpretation Comments TROPONIN I (test 0.003 ng/mL See_Comment [Automated code = 4339152510) message] The system which generated this result transmitted reference range : <=0.034. The reference range was not used to interpret this result as normal/abnormal . NU (test code = Equal or Less than NU) 0.034 ng/ml---Normal ?Note: Cardiac troponin begins to rise 3-4 hours after the onset of ischemia. Repeat in 4-6 hours if the sample was drawn within 3-4 hours of the onset of the symptom and found normal. Between 0.035 and 0.120 ng/mL--- Borderline. Questionable myocardial injury or necrosis ? ?Note: Serial measurement may be necessary to confirm or exclude the diagnosis of myocardial injury or necrosis; Clinical correlation (symptoms, EKGs, imaging studies, and others) required; Repeat in 4-6 hours if clinically indicated. ? Equal or Higher than 0.121 ng/mL---Abnormal. Myocardial Injury or Necrosis Likely ? Biotin has been reported to cause a negative bias, interpret results relative to patient's use of biotin. ? Lab Interpretation Normal (test code = 16222-0) [facility] METABOLIC PANEL (NA, K, CL, CO2, GLUCOSE, BUN, CREATININE, CA)2019-11-16 02:07:00 Test Item Value Reference Range Interpretation Comments NA (test code = 137 mmol/L 135-145 3714410929) K (test code = 3.6 mmol/L 3.5-5 4224414135) CL (test code = 104 mmol/L 98-108 1528066471) CO2 TOTAL (test code = 24 mmol/L 23-31 8599255121) AGAP (test code = 2-16 6725142493) BUN (test code = 11 mg/dL 7-23 2740521898) GLUCOSE (test code = 321 mg/dL 70-110 H 8313416358) CREATININE (test code = 0.65 mg/dL 0.5-1.04 3920731545) CALCIUM (test code = 8.2 mg/dL 8.6-10.6 L 5776661069) eGFR Calculation mL/min/1.73m2 (Non-) (test code = 3688857379) eGFR Calculation mL/min/1.73m2 () (test code = 5556636625) NU (test code = NU) Association of Glomerular Filtration Rate (GFR) and Staging of Kidney Disease* + --+ --+ ------+| GFR (mL/min/1.73 m2) ?| With Kidney Damage ?| ?Without Kidney Damage+ --------+ --------+ +| ?>90 ?| ?Stage one ?| ? Normal ?+ ---+ ---+ -------+| ?60-89 ?| ?Stage two ?| ? Decreased GFR ? + --+ --+ ------+| ?30-59 ?| ?Stage three ?| ? Stage three ? + --+ --+ ------+| ?15-29 ?| ?Stage four ? | ? Stage four ?+ ---+ ---+ -------+| ?<15 (or dialysis) ? ?| ?Stage five ? | ? Stage five ?+ ---+ ---+ -------+ *Each stage assumes the associated GFR level has been in effect for at least three months. ?Stages 1 to 5, with or without kidney disease, indicate chronic kidney disease. Notes: Determination of stages one and two (with eGFR >59mL/min/1.73 m2) requires estimation of kidney damage for at least three months as defined by structural or functional abnormalities of the kidney, manifested by either:Pathological abnormalities or Markers of kidney damage (including abnormalities in the composition of the blood or urine or abnormalities in imaging tests). Lab Interpretation Abnormal (test code = 64070-7) [facility] 02:07:00 Test Item Value Reference Range Interpretation Comments MAGNESIUM (test code = 5931018127) 1.8 mg/dL 1.7-2.4 Lab Interpretation (test code = Normal 88039-7) [facility] CenterCREATINE [id number] 02:07:00 Test Item Value Reference Range Interpretation Comments CK (test code = 0774056385) 35 U/L 33-194 Lab Interpretation (test code = Normal 58694-5) [facility]2019-11-15 18:51:00 Test Item Value Reference Range Interpretation Comments POCT GLU (test code = 2276949539) 310 mg/dL 70-110 H Lab Interpretation (test code = Abnormal 59277-5) [facility] CenterXR [id number] 17:26:50EXAM: XR KUB HISTORY: serial progression r/o toxic megacolon, ?,sbo r/o COMPARISON: None. FINDINGS: Gas is present throughout nondilated loops of small and large intestine,and obstruction is not suspected. Neither is toxic megacolon demonstrated.The bowel gas pattern is normal and no opaque stones ormasses are found.[facility], Radiant Results Inft User - 11/15/2019 12:27 PM CDTEXAM: XR KUBHISTORY: serial progression r/o toxic megacolon, ,sbo r/o COMPARISON: None.FINDINGS:Gas is present throughout nondilated loops of small and large intestine,and obstruction is not suspected. Neither is toxic megacolon demonstrated.The bowel gas pattern is normal and no opaque stones or masses are found.[facility] GLUCOSE (AUTOMATED)2019-11-15 13:04:00 Test Item Value Reference Range Interpretation Comments POCT GLU (test code = 5311019438) 270 mg/dL 70-110 H Lab Interpretation (test code = Abnormal 03185-0) [facility] WITH [id number] 11:01:00 Test Item Value Reference Range Interpretation Comments WBC (test code = See_Comment [Automated 6690-2) message] The sy stem which generated this result transmitted reference range : 4.30 - 11.10 10*3/?L. The reference range was not used to interpret this result as normal/abnormal . RBC (test code = See_Comment L [Automated 789-8) message] The sy stem which generated this result transmitted reference range : 3.93 - 5.25 10*6/?L. The reference range was not used to interpret this result as normal/abnormal . HGB (test code = 10.9 g/dL 11.6-15 L 718-7) HCT (test code = 32.8 % 35.7-45.2 L 4544-3) MCV (test code = 90.1 fL 80.6-95.5 787-2) MCH (test code = 29.9 pg 25.9-32.8 785-6) MCHC (test code = 33.2 g/dL 31.6-35.1 786-4) RDW-SD (test code = 54.9 fL 39-49.9 H 67246-1) RDW-CV (test code = 17.2 % 12-15.5 H 788-0) PLT (test code = See_Comment LL [Automated 777-3) message] The sy stem which generated this result transmitted reference range : 166 - 358 10*3/ ?L. The reference r pardeep was not used to interpret this result as normal/abnormal . MPV (test code = 9.9 fL 9.5-12.9 40789-7) IPF % (test code = 4.4 % 1.3-7.7 Platelet count [id number]) measured by fluorescence method. NRBC/100 WBC (test See_Comment [Automat ed code = 6831421121) message] The system which generated this result transmitted reference range : 0.0 - 10.0 /100 WBCs. The refer ence range was not u sed to interpret th is result as normal/abnormal . NRBC x10^3 (test code <0.01 See_Comment [Auto mated = 3473914913) message] The s ystem which generated this result transmitted reference range : 10*3/?L. The reference range was not used to interpret this result as normal/abnormal . GRAN MAT (NEUT) % 75.2 % (test code = 770-8) IMM GRAN % (test code 1.40 % = 0403034613) LYMPH % (test code = 15.7 % 736-9) MONO % (test code = 6.8 % 5905-5) EOS % (test code = 0.7 % 713-8) BASO % (test code = 0.2 % 706-2) GRAN MAT x10^3(ANC) 4.23 10*3/uL 1.88-7.09 (test code = 3660984050) IMM GRAN x10^3 (test 0.08 10*3/uL 0-0.06 H code = 1200324944) LYMPH x10^3 (test code 0.88 10*3/uL 1.32-3.29 L = 731-0) MONO x10^3 (test code 0.38 10*3/uL 0.33-0.92 = 742-7) EOS x10^3 (test code = 0.04 10*3/uL 0.03-0.39 711-2) BASO x10^3 (test code <0.03 0.01-0.07 = 704-7) Lab Interpretation Abnormal (test code = 14405-9) [facility] Metabolic Panel (NA, K, CL, CO2, Glucose, BUN, Creatinine, CA)2019-11-15 10:45:00 Test Item Value Reference Range Interpretation Comments NA (test code = 137 mmol/L 135-145 8443310131) K (test code = 3.7 mmol/L 3.5-5 Slight 5395748237) hemolysis CL (test code = 105 mmol/L 98-108 4944789321) CO2 TOTAL (test code 25 mmol/L 23-31 = 0313709081) AGAP (test code = 2-16 9766673002) BUN (test code = 10 mg/dL 7-23 Slight 2518305887) hemolysis GLUCOSE (test code = 307 mg/dL 70-110 H 0879838500) CREATININE (test code 0.56 mg/dL 0.5-1.04 = 4049252253) CALCIUM (test code = 7.4 mg/dL 8.6-10.6 L 4004962188) eGFR Calculation mL/min/1.73m2 (Non-) (test code = 3698776169) eGFR Calculation mL/min/1.73m2 () (test code = 3958360834) NU (test code = NU) Association of Glomerular Filtration Rate (GFR) and Staging of Kidney Disease* + -----+ --------+ +| GFR (mL/min/1.73 m2) ?| With Kidney Damage ?| ?Without Kidney Damage+ +------- +---- --+| ?>90 ?| ?Stage one ?| ? Normal ?+ ------+ ---------+--------- +| ?60-89 ?| ?Stage two ?| ? Decreased GFR ? + -----+ --------+ +| ?30-59 ?| ?Stage three ?| ? Stage three ? + -----+ --------+ +| ?15-29 ?| ?Stage four ? | ? Stage four ?+ ------+ ---------+--------- +| ?<15 (or dialysis) ? ?| ?Stage five ? | ? Stage five ?+ ------+ ---------+--------- + *Each stage assumes the associated GFR level has been in effect for at least three months. ?Stages 1 to 5, with or without kidney disease, indicate chronic kidney disease. Notes: Determination of stages one and two (with eGFR >59mL/min/1.73 m2) requires estimation of kidney damage for at least three months as defined by structural or functional abnormalities of the kidney, manifested by either:Pathological abnormalities or Markers of kidney damage (including abnormalities in the composition of the blood or urine or abnormalities in imaging tests). Lab Interpretation Abnormal (test code = 08809-9) [facility] GLUCOSE (AUTOMATED)2019-11-15 03:01:00 Test Item Value Reference Range Interpretation Comments POCT GLU (test code = 6609238751) 285 mg/dL 70-110 H Lab Interpretation (test code = Abnormal 83240-6) [facility] CULTURE [id number] 00:01:00 Test Item Value Reference Range Interpretation Comments Blood Culture-Aerobic No organisms No growth Previo us (test code = 95016-8) isolated prelim inary verified result was Culture In Progress on 11/09/2019 at 22 01 CDTPrevious preliminary verified result was No growth a t 24 hours on 11/10/2019 at 19 01 CDTPrevious preliminary verified result was No growth a t 48 hours on 11/11/2019 at 19 01 CDTPrevious preliminary verified result was No growth a t 72 hours on 11/12/2019 at 190 1 CDT Blood No organisms No growth Previous Culture-Anaerobic isolated preliminar y (test code = 28284-0) verifi ed result was Culture In Progress on 11/09/2019 at 22 01 CDTPrevious preliminary verified result was No growth a t 24 hours on 11/10/2019 at 19 01 CDTPrevious preliminary verified result was No growth a t 48 hours on 11/11/2019 at 19 01 CDTPrevious preliminary verified result was No growth a t 72 hours on 11/12/2019 at 190 1 CDT Lab Interpretation Normal (test code = 45697-5) [facility] CULTURE [id number] 00:01:00 Test Item Value Reference Range Interpretation Comments Blood Culture-Aerobic No organisms No growth Previo us (test code = 60385-9) isolated prelim inary verified result was Culture In Progress on 11/09/2019 at 22 01 CDTPrevious preliminary verified result was No growth a t 24 hours on 11/10/2019 at 19 01 CDTPrevious preliminary verified result was No growth a t 48 hours on 11/11/2019 at 19 01 CDTPrevious preliminary verified result was No growth a t 72 hours on 11/12/2019 at 190 1 CDT Blood No organisms No growth Previous Culture-Anaerobic isolated preliminar y (test code = 78574-2) verifi ed result was Culture In Progress on 11/09/2019 at 22 01 CDTPrevious preliminary verified result was No growth a t 24 hours on 11/10/2019 at 19 01 CDTPrevious preliminary verified result was No growth a t 48 hours on 11/11/2019 at 19 01 CDTPrevious preliminary verified result was No growth a t 72 hours on 11/12/2019 at 190 1 CDT Lab Interpretation Normal (test code = 53579-8) [facility] GLUCOSE (AUTOMATED)2019-11-14 21:19:00 Test Item Value Reference Range Interpretation Comments POCT GLU (test code = 4426566991) 337 mg/dL 70-110 H Lab Interpretation (test code = Abnormal 20219-4) [facility]XR [id number] 17:43:38 No radiographic findings to suggest with toxic megacolon.EXAM: XR KUB COMPARISON: 11/13/2019. HISTORY: monitor for toxic megacolon FINDINGS: The colon appears normally dilated with preservation of the haustralmarkings and no evidence of mucosal edema. Air is noted throughout thecolon to the level of the rectum. The bowel gas pattern is overallnonobstructive. No intra-abdominal free air seen. Cholecystectomy clips are present. The bony structures are grosslyunremarkable. [facility], Radiant Results Inft User - 11/14/2019 12:44 PM CDTEXAM: XR KUBCOMPARISON: 11/13/2019.HISTORY: monitor for toxic megacolon FINDINGS:The colon appears normally dilated with preservation of the haustralmarkings and no evidence of mucosal edema. Air is noted throughout thecolon to the level of the rectum. The bowel gas pattern isoverallnonobstructive.No intra-abdominal free air seen.Cholecystectomy clips are present. The bony structures are grosslyunremarkable.IMPRESSIONNo radiographic findings to suggest with toxic megacolon.[facility] GLUCOSE (AUTOMATED)2019-11-14 16:45:00 Test Item Value Reference Range Interpretation Comments POCT GLU (test code = 319 mg/dL 70-110 H Notifi ed Provider [id number]) Lab Interpretation (test Abnormal code = 11314-8) [facility] CenterCBC WITH [id number] 11:35:00 Test Item Value Reference Range Interpretation Comments WBC (test code = See_Comment [Automated 6690-2) message] The sy stem which generated this result transmitted reference range : 4.30 - 11.10 10*3/?L. The reference range was not used to interpret this result as normal/abnormal . RBC (test code = See_Comment L [Automated 789-8) message] The sy stem which generated this result transmitted reference range : 3.93 - 5.25 10*6/?L. The reference range was not used to interpret this result as normal/abnormal . HGB (test code = 10.9 g/dL 11.6-15 L 718-7) HCT (test code = 32.8 % 35.7-45.2 L 4544-3) MCV (test code = 88.9 fL 80.6-95.5 787-2) MCH (test code = 29.5 pg 25.9-32.8 785-6) MCHC (test code = 33.2 g/dL 31.6-35.1 786-4) RDW-SD (test code = 53.9 fL 39-49.9 H 88821-1) RDW-CV (test code = 17.2 % 12-15.5 H 788-0) PLT (test code = See_Comment LL [Automated 777-3) message] The sy stem which generated this result transmitted reference range : 166 - 358 10*3/ ?L. The reference r pardeep was not used to interpret this result as normal/abnormal . MPV (test code = 10.0 fL 9.5-12.9 94902-0) IPF % (test code = 3.2 % 1.3-7.7 Platelet count 8322848118) measured by fluorescence method. NRBC/100 WBC (test See_Comment [Automat ed code = 2917234309) message] The system which generated this result transmitted reference range : 0.0 - 10.0 /100 WBCs. The refer ence range was not u sed to interpret th is result as normal/abnormal . NRBC x10^3 (test code <0.01 See_Comment [Auto mated = 4184842828) message] The s ystem which generated this result transmitted reference range : 10*3/?L. The reference range was not used to interpret this result as normal/abnormal . GRAN MAT (NEUT) % 73.9 % (test code = 770-8) IMM GRAN % (test code 1.60 % = 1393554257) LYMPH % (test code = 16.1 % 736-9) MONO % (test code = 6.6 % 5905-5) EOS % (test code = 1.4 % 713-8) BASO % (test code = 0.4 % 706-2) GRAN MAT x10^3(ANC) 4.14 10*3/uL 1.88-7.09 (test code = 4469002582) IMM GRAN x10^3 (test 0.09 10*3/uL 0-0.06 H code = 4592109925) LYMPH x10^3 (test code 0.90 10*3/uL 1.32-3.29 L = 731-0) MONO x10^3 (test code 0.37 10*3/uL 0.33-0.92 = 742-7) EOS x10^3 (test code = 0.08 10*3/uL 0.03-0.39 711-2) BASO x10^3 (test code <0.03 0.01-0.07 = 704-7) BANDS (test code = Increased A 6815146669) Lab Interpretation Abnormal (test code = 49157-8) [facility] Metabolic Panel (NA, K, CL, CO2, Glucose, BUN, Creatinine, CA)2019-11-14 11:07:00 Test Item Value Reference Range Interpretation Comments NA (test code = 136 mmol/L 135-145 0972590788) K (test code = 3.3 mmol/L 3.5-5 L Slight 3402037167) hemolysis CL (test code = 105 mmol/L 98-108 2772057010) CO2 TOTAL (test code 25 mmol/L 23-31 = 1355719894) AGAP (test code = 2-16 1752817639) BUN (test code = 12 mg/dL 7-23 Slight 9590298419) hemolysis GLUCOSE (test code = 275 mg/dL 70-110 H 0979596075) CREATININE (test code 0.60 mg/dL 0.5-1.04 = 3412939534) CALCIUM (test code = 7.4 mg/dL 8.6-10.6 L 1637610532) eGFR Calculation mL/min/1.73m2 (Non-) (test code = 3715251328) eGFR Calculation mL/min/1.73m2 () (test code = 6969223862) NU (test code = NU) Association of Glomerular Filtration Rate (GFR) and Staging of Kidney Disease* + -----+ --------+ +| GFR (mL/min/1.73 m2) ?| With Kidney Damage ?| ?Without Kidney Damage+ +------- +---- --+| ?>90 ?| ?Stage one ?| ? Normal ?+ ------+ ---------+--------- +| ?60-89 ?| ?Stage two ?| ? Decreased GFR ? + -----+ --------+ +| ?30-59 ?| ?Stage three ?| ? Stage three ? + -----+ --------+ +| ?15-29 ?| ?Stage four ? | ? Stage four ?+ ------+ ---------+--------- +| ?<15 (or dialysis) ? ?| ?Stage five ? | ? Stage five ?+ ------+ ---------+--------- + *Each stage assumes the associated GFR level has been in effect for at least three months. ?Stages 1 to 5, with or without kidney disease, indicate chronic kidney disease. Notes: Determination of stages one and two (with eGFR >59mL/min/1.73 m2) requires estimation of kidney damage for at least three months as defined by structural or functional abnormalities of the kidney, manifested by either:Pathological abnormalities or Markers of kidney damage (including abnormalities in the composition of the blood or urine or abnormalities in imaging tests). Lab Interpretation Abnormal (test code = 54639-2) [facility] CenterMagnesium [id number] 11:07:00 Test Item Value Reference Range Interpretation Comments MAGNESIUM (test code = 4205132767) 1.5 mg/dL 1.7-2.4 L Lab Interpretation (test code = Abnormal 97682-5) [facility] CenterHepatic Function Panel (ALB, T.PRO, BILI T, BU/BC, ALT, AST, ALK, PHOS)2019-11-14 11:07:00 Test Item Value Reference Range Interpretation Comments TOTAL BILI (test code = 2742951210) 1.2 mg/dL 0.1-1.1 H BILI UNCON (test code = 8836718712) 0.7 mg/dL 0.1-1.1 BILI CONJ (test code = 5353729488) 0.0 mg/dL 0-0.3 T PROTEIN (test code = 5422575586) 6.1 g/dL 6.3-8.2 L ALBUMIN (test code = 7081503639) 2.7 g/dL 3.5-5 L ALK PHOS (test code = 1657385360) 92 U/L 34-122 ALTv (test code = 1742-6) 20 U/L 5-35 AST(SGOT) (test code = 8270615283) 37 U/L 13-40 Lab Interpretation (test code = Abnormal 42726-5) [facility] CenterProthrombin Time / [id number] 10:59:00 Test Item Value Reference Range Interpretation Comments PROTIME PATIENT (test See_Comment H [Auto mated message] code = 5964-2) The system [employer] generated this result transmitted ref erence range: 10.1 - 1 2.6 Seconds. The reference range was not used to int erpret this result as normal/abnormal . INR (test code = 6301-6) Nor mal INR <1.1; Warfarin Therap eutic range 2.0 to 3. 0 or 2.5 to 3.5, dep ending upon the indica tions. Lab Interpretation (test Abnormal code = 07474-3) [facility] CenterFERRITIN [id number] 03:41:00 Test Item Value Reference Range Interpretation Comments FERRITIN (test code = 382.0 ng/mL 11-264 H 8625572093) NU (test code = NU) Biotin has been reported to cause a negative bias, interpret results relative to patient's use of biotin. Lab Interpretation (test Abnormal code = 32263-7) [facility] CenterPO[facility] ([facility]ATED)2019-11-14 03:06:00 Test Item Value Reference Range Interpretation Comments POCT GLU (test code = 1234795603) 274 mg/dL 70-110 H Lab Interpretation (test code = Abnormal 62787-5) [facility] CenterIRON [id number] 02:56:00 Test Item Value Reference Range Interpretation Comments IRON (test code = 6395500513) 171 ug/dL 50-160 H TIBC (test code = 8594722492) 319 ug/dL 250-410 % FE SAT (test code = 0802137729) 54 % 20-50 H Lab Interpretation (test code = Abnormal 40693-6) [facility] WITH [id number] 23:39:00 Test Item Value Reference Range Interpretation Comments WBC (test code = See_Comment [Automated 6690-2) message] The sy stem which generated this result transmitted reference range : 4.30 - 11.10 10*3/?L. The reference range was not used to interpret this result as normal/abnormal . RBC (test code = See_Comment L [Automated 789-8) message] The sy stem which generated this result transmitted reference range : 3.93 - 5.25 10*6/?L. The reference range was not used to interpret this result as normal/abnormal . HGB (test code = 11.5 g/dL 11.6-15 L 718-7) HCT (test code = 35.1 % 35.7-45.2 L 4544-3) MCV (test code = 89.8 fL 80.6-95.5 787-2) MCH (test code = 29.4 pg 25.9-32.8 785-6) MCHC (test code = 32.8 g/dL 31.6-35.1 786-4) RDW-SD (test code = 55.3 fL 39-49.9 H 93897-7) RDW-CV (test code = 17.3 % 12-15.5 H 788-0) PLT (test code = See_Comment L [Automated 777-3) message] The sy stem which generated this result transmitted reference range : 166 - 358 10*3/ ?L. The reference r pardeep was not used to interpret this result as normal/abnormal . MPV (test code = 10.2 fL 9.5-12.9 64215-5) IPF % (test code = 2.0 % 1.3-7.7 Platelet count 1034875727) measured by fluorescence method. NRBC/100 WBC (test See_Comment [Automat ed code = 4459351969) message] The system which generated this result transmitted reference range : 0.0 - 10.0 /100 WBCs. The refer ence range was not u sed to interpret th is result as normal/abnormal . NRBC x10^3 (test code <0.01 See_Comment [Auto mated = 3102850987) message] The s ystem which generated this result transmitted reference range : 10*3/?L. The reference range was not used to interpret this result as normal/abnormal . GRAN MAT (NEUT) % 78.7 % (test code = 770-8) IMM GRAN % (test code 1.30 % = 0938576543) LYMPH % (test code = 12.3 % 736-9) MONO % (test code = 6.4 % 5905-5) EOS % (test code = 1.2 % 713-8) BASO % (test code = 0.1 % 706-2) GRAN MAT x10^3(ANC) 6.48 10*3/uL 1.88-7.09 (test code = 2641553587) IMM GRAN x10^3 (test 0.11 10*3/uL 0-0.06 H code = 3303863859) LYMPH x10^3 (test code 1.01 10*3/uL 1.32-3.29 L = 731-0) MONO x10^3 (test code 0.53 10*3/uL 0.33-0.92 = 742-7) EOS x10^3 (test code = 0.10 10*3/uL 0.03-0.39 711-2) BASO x10^3 (test code <0.03 0.01-0.07 = 704-7) Lab Interpretation Abnormal (test code = 49145-8) [facility]PO[facility])2019-11-13 22:58:00 Test Item Value Reference Range Interpretation Comments POCT GLU (test code = 8494667071) 181 mg/dL 70-110 H Lab Interpretation (test code = Abnormal 85713-7) [facility] CenterXR [id number] 19:22:12 Nonspecific, mild gaseous distention of large and small bowel with noevidence of mechanical obstruction. Right-sided pleural effusion.EXAM: XR KUB COMPARISON: CT dated 11/12/2019. HISTORY: partial SBO, monitor progression FINDINGS: Nonspecific loops of large and small bowel demonstrate gaseous distentionwith no localizing findings to suggest obstruction. There is air notedthroughout the colon into the distal colon. No intra-abdominal free air is seen. Cholecystectomy changes are noted. Incidental note of a right-sided pleural effusion. No acute or aggressive bony lesions. [facility], Radiant Results InftUser - 11/13/2019 2:23 PM CDTEXAM: XR KUBCOMPARISON: CT dated 11/12/2019.HISTORY: partial SBO, monitor progression FINDINGS:Nonspecific loops of large and small bowel demonstrate gaseous distentionwith no localizing findings to suggest obstruction. There is air notedthroughout the colon into the distalcolon.No intra-abdominal free air is seen.Cholecystectomy changes are noted.Incidental note of a right-sided pleural effusion.No acute or aggressive bony lesions.IMPRESSIONNonspecific, mild gaseous distention of large and small bowel with noevidence of mechanical obstruction.Right-sided pleural effusion.[facility]PO[facility])2019-11-13 17:04:00 Test Item Value Reference Range Interpretation Comments POCT GLU (test code = 8303851759) 181 mg/dL 70-110 H Lab Interpretation (test code = Abnormal 28740-6) [facility] CenterPROFILE / [id number] 15:26:00 Test Item Value Reference Range Interpretation Comments WBC (test code = See_Comment [Automated message] 6690-2) The system [employer] generated this result transmitted ref erence range: 4.30 - 1 1.10 10*3/?L. The reference range was not used to int erpret this result as normal/abnormal . RBC (test code = 789-8) See_Comment L [Au tomated message] The system [employer] generated this result transmitted ref erence range: 3.93 - 5 .25 10*6/?L. The reference range was not used to int erpret this result as normal/abnormal . HGB (test code = 718-7) 10.2 g/dL 11.6-15 L HCT (test code = 30.5 % 35.7-45.2 L 4544-3) MCH (test code = 785-6) 29.8 pg 25.9-32.8 MCV (test code = 787-2) 89.2 fL 80.6-95.5 MCHC (test code = 33.4 g/dL 31.6-35.1 786-4) PLT (test code = 777-3) See_Comment LL [Au tomated message] The system [employer] generated this result transmitted ref erence range: 166 - 35 8 10*3/?L. The reference range was not used to int erpret this result as normal/abnormal . MPV (test code = 9.0 fL 9.5-12.9 L 41590-5) RDW-CV (test code = 17.5 % 12-15.5 H 788-0) RDW-SD (test code = 55.7 fL 39-49.9 H 15983-2) NRBC x10^3 (test code = See_Comment [Au tomated message] 4767916336) The system [employer] generated this result transmitted ref erence range: 10*3/?L. The reference range was not used to int erpret this result as normal/abnormal . NRBC/100 WBC (test code See_Comment [Au tomated message] = 0676011984) The system [employer] generated this result transmitted ref erence range: 0.0 - 10 .0 /100 WBCs. The reference range was not used to int erpret this result as normal/abnormal . IPF % (test code = 3.2 % 1.3-7.7 Platelet count 3320400558) measured by fluorescence me thod. Lab Interpretation Abnormal (test code = 50479-5) [facility]2019-11-13 12:57:00 Test Item Value Reference Range Interpretation Comments POCT GLU (test code = 5171386823) 151 mg/dL 70-110 H Lab Interpretation (test code = Abnormal 44640-9) [facility] CenterPROFILE / [id number] 10:23:00 Test Item Value Reference Range Interpretation Comments WBC (test code = See_Comment [Automated message] 6690-2) The system [employer] generated this result transmitted ref erence range: 4.30 - 1 1.10 10*3/?L. The reference range was not used to int erpret this result as normal/abnormal . RBC (test code = 789-8) See_Comment L [Au tomated message] The system [employer] generated this result transmitted ref erence range: 3.93 - 5 .25 10*6/?L. The reference range was not used to int erpret this result as normal/abnormal . HGB (test code = 718-7) 9.9 g/dL 11.6-15 L HCT (test code = 30.1 % 35.7-45.2 L 4544-3) MCH (test code = 785-6) 29.3 pg 25.9-32.8 MCV (test code = 787-2) 89.1 fL 80.6-95.5 MCHC (test code = 32.9 g/dL 31.6-35.1 786-4) PLT (test code = 777-3) See_Comment LL [Au tomated message] The system [employer] generated this result transmitted ref erence range: 166 - 35 8 10*3/?L. The reference range was not used to int erpret this result as normal/abnormal . MPV (test code = 8.4 fL 9.5-12.9 L 98169-8) RDW-CV (test code = 17.5 % 12-15.5 H 788-0) RDW-SD (test code = 56.2 fL 39-49.9 H 94647-5) NRBC x10^3 (test code = See_Comment [Au tomated message] 9530985087) The system [employer] generated this result transmitted ref erence range: 10*3/?L. The reference range was not used to int erpret this result as normal/abnormal . NRBC/100 WBC (test code See_Comment [Au tomated message] = 8366851139) The system [employer] generated this result transmitted ref erence range: 0.0 - 10 .0 /100 WBCs. The reference range was not used to int erpret this result as normal/abnormal . IPF % (test code = 2.0 % 1.3-7.7 Platelet count [id number]) measured by fluorescence me thod. Lab Interpretation Abnormal (test code = 99788-6) [facility] Metabolic Panel (NA, K, CL, CO2, Glucose, BUN, Creatinine, CA)2019-11-13 10:09:00 Test Item Value Reference Range Interpretation Comments NA (test code = 136 mmol/L 135-145 2594946694) K (test code = 3.7 mmol/L 3.5-5 0775741393) CL (test code = 109 mmol/L 98-108 H 1256226122) CO2 TOTAL (test code = 21 mmol/L 23-31 L 7771585649) AGAP (test code = 2-16 8756414805) BUN (test code = 16 mg/dL 7-23 3404742972) GLUCOSE (test code = 151 mg/dL 70-110 H 0258370798) CREATININE (test code = 0.59 mg/dL 0.5-1.04 9029850359) CALCIUM (test code = 7.1 mg/dL 8.6-10.6 L 6091414612) eGFR Calculation mL/min/1.73m2 (Non-) (test code = 6507066501) eGFR Calculation mL/min/1.73m2 () (test code = 5846845698) NU (test code = NU) Association of Glomerular Filtration Rate (GFR) and Staging of Kidney Disease* + --+ --+ ------+| GFR (mL/min/1.73 m2) ?| With Kidney Damage ?| ?Without Kidney Damage+ --------+ --------+ +| ?>90 ?| ?Stage one ?| ? Normal ?+ ---+ ---+ -------+| ?60-89 ?| ?Stage two ?| ? Decreased GFR ? + --+ --+ ------+| ?30-59 ?| ?Stage three ?| ? Stage three ? + --+ --+ ------+| ?15-29 ?| ?Stage four ? | ? Stage four ?+ ---+ ---+ -------+| ?<15 (or dialysis) ? ?| ?Stage five ? | ? Stage five ?+ ---+ ---+ -------+ *Each stage assumes the associated GFR level has been in effect for at least three months. ?Stages 1 to 5, with or without kidney disease, indicate chronic kidney disease. Notes: Determination of stages one and two (with eGFR >59mL/min/1.73 m2) requires estimation of kidney damage for at least three months as defined by structural or functional abnormalities of the kidney, manifested by either:Pathological abnormalities or Markers of kidney damage (including abnormalities in the composition of the blood or urine or abnormalities in imaging tests). Lab Interpretation Abnormal (test code = 14974-8) [facility] CenterMagnesium [id number] 10:09:00 Test Item Value Reference Range Interpretation Comments MAGNESIUM (test code = 7102923481) 2.3 mg/dL 1.7-2.4 Lab Interpretation (test code = Normal 65066-6) [facility] CenterHep[facility] Function Panel (ALB, T.PRO, BILI T, BU/BC, ALT, AST, ALK, PHOS)2019-11-13 10:09:00 Test Item Value Reference Range Interpretation Comments TOTAL BILI (test code = 2024259361) 1.7 mg/dL 0.1-1.1 H BILI UNCON (test code = 2260606916) 1.3 mg/dL 0.1-1.1 H BILI CONJ (test code = 6334737825) 0.0 mg/dL 0-0.3 T PROTEIN (test code = 0257203244) 5.7 g/dL 6.3-8.2 L ALBUMIN (test code = 2210447371) 2.5 g/dL 3.5-5 L ALK PHOS (test code = 0505984262) 77 U/L 34-122 ALTv (test code = 1742-6) 20 U/L 5-35 AST(SGOT) (test code = 2974373800) 33 U/L 13-40 Lab Interpretation (test code = Abnormal 65934-6) [facility] CenterProthrombin Time / [id number] 09:53:00 Test Item Value Reference Range Interpretation Comments PROTIME PATIENT (test See_Comment H [Auto mated message] code = 5964-2) The system [employer] generated this result transmitted ref erence range: 10.1 - 1 2.6 Seconds. The reference range was not used to int erpret this result as normal/abnormal . INR (test code = 6301-6) Nor mal INR <1.1; Warfarin Therap eutic range 2.0 to 3. 0 or 2.5 to 3.5, dep ending upon the indica tions. Lab Interpretation (test Abnormal code = 26562-5) [facility])2019-11-13 04:43:00 Test Item Value Reference Range Interpretation Comments POCT GLU (test code = 4043160707) 164 mg/dL 70-110 H Lab Interpretation (test code = Abnormal 80976-5) [facility] CenterPROFILE / [id number] 03:24:00 Test Item Value Reference Range Interpretation Comments WBC (test code = See_Comment [Automated message] 6690-2) The system [employer] generated this result transmitted ref erence range: 4.30 - 1 1.10 10*3/?L. The reference range was not used to int erpret this result as normal/abnormal . RBC (test code = 789-8) See_Comment L [Au tomated message] The system [employer] generated this result transmitted ref erence range: 3.93 - 5 .25 10*6/?L. The reference range was not used to int erpret this result as normal/abnormal . HGB (test code = 718-7) 10.4 g/dL 11.6-15 L HCT (test code = 31.4 % 35.7-45.2 L 4544-3) MCH (test code = 785-6) 29.3 pg 25.9-32.8 MCV (test code = 787-2) 88.5 fL 80.6-95.5 MCHC (test code = 33.1 g/dL 31.6-35.1 786-4) PLT (test code = 777-3) See_Comment LL [Au tomated message] The system [employer] generated this result transmitted ref erence range: 166 - 35 8 10*3/?L. The reference range was not used to int erpret this result as normal/abnormal . MPV (test code = 9.1 fL 9.5-12.9 L 76323-3) RDW-CV (test code = 17.6 % 12-15.5 H 788-0) RDW-SD (test code = 56.1 fL 39-49.9 H 35746-7) NRBC x10^3 (test code = See_Comment [Au tomated message] 3730672938) The system [employer] generated this result transmitted ref erence range: 10*3/?L. The reference range was not used to int erpret this result as normal/abnormal . NRBC/100 WBC (test code See_Comment [Au tomated message] = 2478356342) The system [employer] generated this result transmitted ref erence range: 0.0 - 10 .0 /100 WBCs. The reference range was not used to int erpret this result as normal/abnormal . IPF % (test code = 1.9 % 1.3-7.7 Platelet count 2527550756) measured by fluorescence me thod. Lab Interpretation Abnormal (test code = 54746-5) [facility] CenterPOWY GLUCOSE (AUTOMATED)2019-11-13 00:53:00 Test Item Value Reference Range Interpretation Comments POCT GLU (test code = 1092937637) 201 mg/dL 70-110 H Lab Interpretation (test code = Abnormal 39837-4) [facility] METABOLIC PANEL (NA, K, CL, CO2, GLUCOSE, BUN, CREATININE, CA)2019-11-12 22:06:00 Test Item Value Reference Range Interpretation Comments NA (test code = 136 mmol/L 135-145 1156879072) K (test code = 4.1 mmol/L 3.5-5 8255747617) CL (test code = 107 mmol/L 98-108 0485243602) CO2 TOTAL (test code = 24 mmol/L 23-31 1043884942) AGAP (test code = 2-16 2325432493) BUN (test code = 18 mg/dL 7-23 2912127828) GLUCOSE (test code = 133 mg/dL 70-110 H 7706561742) CREATININE (test code = 0.60 mg/dL 0.5-1.04 5896788211) CALCIUM (test code = 7.4 mg/dL 8.6-10.6 L 7041266477) eGFR Calculation mL/min/1.73m2 (Non-) (test code = 4976427720) eGFR Calculation mL/min/1.73m2 () (test code = 4198351866) NU (test code = NU) Association of Glomerular Filtration Rate (GFR) and Staging of Kidney Disease* + --+ --+ ------+| GFR (mL/min/1.73 m2) ?| With Kidney Damage ?| ?Without Kidney Damage+ --------+ --------+ +| ?>90 ?| ?Stage one ?| ? Normal ?+ ---+ ---+ -------+| ?60-89 ?| ?Stage two ?| ? Decreased GFR ? + --+ --+ ------+| ?30-59 ?| ?Stage three ?| ? Stage three ? + --+ --+ ------+| ?15-29 ?| ?Stage four ? | ? Stage four ?+ ---+ ---+ -------+| ?<15 (or dialysis) ? ?| ?Stage five ? | ? Stage five ?+ ---+ ---+ -------+ *Each stage assumes the associated GFR level has been in effect for at least three months. ?Stages 1 to 5, with or without kidney disease, indicate chronic kidney disease. Notes: Determination of stages one and two (with eGFR >59mL/min/1.73 m2) requires estimation of kidney damage for at least three months as defined by structural or functional abnormalities of the kidney, manifested by either:Pathological abnormalities or Markers of kidney damage (including abnormalities in the composition of the blood or urine or abnormalities in imaging tests). Lab Interpretation Abnormal (test code = 39828-2) [facility] CenterPROFILE / [id number] 21:54:00 Test Item Value Reference Range Interpretation Comments WBC (test code = See_Comment [Automated message] 6690-2) The system [employer] generated this result transmitted ref erence range: 4.30 - 1 1.10 10*3/?L. The reference range was not used to int erpret this result as normal/abnormal . RBC (test code = 789-8) See_Comment [Au tomated message] The system [employer] generated this result transmitted ref erence range: 3.93 - 5 .25 10*6/?L. The reference range was not used to int erpret this result as normal/abnormal . HGB (test code = 718-7) 11.4 g/dL 11.6-15 L HCT (test code = 35.5 % 35.7-45.2 L 4544-3) MCH (test code = 785-6) 28.7 pg 25.9-32.8 MCV (test code = 787-2) 89.4 fL 80.6-95.5 MCHC (test code = 32.1 g/dL 31.6-35.1 786-4) PLT (test code = 777-3) See_Comment L [Au tomated message] The system [employer] generated this result transmitted ref erence range: 166 - 35 8 10*3/?L. The reference range was not used to int erpret this result as normal/abnormal . MPV (test code = 9.0 fL 9.5-12.9 L 50024-8) RDW-CV (test code = 17.5 % 12-15.5 H 788-0) RDW-SD (test code = 56.3 fL 39-49.9 H 89835-0) NRBC x10^3 (test code = See_Comment [Au tomated message] 3106409981) The system [employer] generated this result transmitted ref erence range: 10*3/?L. The reference range was not used to int erpret this result as normal/abnormal . NRBC/100 WBC (test code See_Comment [Au tomated message] = 4871704513) The system [employer] generated this result transmitted ref erence range: 0.0 - 10 .0 /100 WBCs. The reference range was not used to int erpret this result as normal/abnormal . IPF % (test code = 2.3 % 1.3-7.7 Platelet count 5219701624) measured by fluorescence me thod. Lab Interpretation Abnormal (test code = 91637-8) [facility] CenterMAGNESIUM2020-05-01 21:54:00 Test Item Value Reference Range Interpretation Comments MAGNESIUM (test code = 1221610943) 2.7 mg/dL 1.7-2.4 H Lab Interpretation (test code = Abnormal 01001-7) [facility] CenterP[facility]Y GLUCOSE (AUTOMATED)2019-11-12 21:29:00 Test Item Value Reference Range Interpretation Comments POCT GLU (test code = 1263258455) 135 mg/dL 70-110 H Lab Interpretation (test code = Abnormal 13025-0) [facility] ANGIOGRAM ABDOMEN/[id number] 20:21:03 Study is limited secondary to presence of intraluminal contrast on thenoncontrast study from the prior CT scan. No active extravasation ofcontrast seen in the area where there was no contrast on the noncontrast CTfrom today. no arterial secondary signs ?aneurysm, early draining vein (AVM ) seen Changes consistent ?right and transverse colon with mild dilatation oftransverse colon with air fluid levels . Consider infectious colitis. ?Nochanges of ischemia or vessel occlusion. Small sliding hiatal hernia. Trace perihepatic and pericolonic ascites, likely reactive. Cirrhosis without focal hepatic lesion with sequela of portal hypertensionincluding splenomegaly and gastroesophageal varices. Preliminary Report Dictated by Resident: Yovany Mancuso MD., have reviewed this studyand agree with theabove report.EXAM: CT ABDOMEN AND PELVIS WITH AND WITHOUT CONTRAST HISTORY: GI bleed With and without contrast COMPARISON: November 11, 2019 CT abdomen and pelvis with contrast. DOSE: 3760.82 mGy-cm TECHNIQUE AND FINDINGS: Contiguous axial imaging from the level of the lungbases throughthe pubic symphysis was performed before and after theuncomplicated administration of 120 mL of intravenous Omnipaque contrast.Precontrast, arterial, venous and 90 seconds delayed phase images wereobtained according to the GI bleed protocol. Coronal and sagittalreconstructions were obtained. ?Auto mA and/or iterative reconstructionwere used to reduce radiation dose. FINDINGS: Suboptimal study secondary to presence of contrast from the previous CTscan from 11/11/2019 within the bowel lumen at various sites on theprecontrast study.. LOWER THORAX: Bibasilar atelectasis. Scattered interstitial septalthickening, bronchiectasis and bronchial wall thickening. No cardiomegaly. LIVER: Cirrhotic liver morphol ogy with nodular contours and hypertrophy ofthe segment 4, 1 2 and 3. A nonenhancing 3.7 cm segment 5 oblong hypodensestructure measures simple cyst attenuation. Mild periportal edema ispresent. GALLBLADDER AND BILIARY TREE: Prior cholecystectomy withpostcholecystectomy reservoir phenomenon. SPLEEN: Sp lenomegaly at 19.5 cm. PANCREAS: No ductal dilation or masses. ADRENAL GLANDS: No adrenal nodules. KIDNEYS: No hydronephrosis, stones, or masses. 2.4 cm right interpolarsimple cyst. PERITONEUM AND RETROPERITONEUM: No free air. Trace volume perihepatic andpericolonic simple ascites. LYMPH NODES: No lymphadenopathy. GI TRACT: Small sliding hiatal hernia. Again noted is extensive prominentascending colon, and transverse colon ?mucosal enhancement and subjacentfatty stranding, with relatively sparing ofleft colon. Dilatation oftransverse colon and air fluid levels. Appendix is nonvisualized. PELVIS/BLADDER: Urinary bladder is underdistended with concern wallthickening secondary to underdistention. VES SELS: Mild scattered aortoiliac atherosclerotic plaquing andcalcification results in no significant stenosis of the branch vesselostia. Small gastroesophageal varices.. BONES AND SOFT TISSUES: No suspicious lytic or sclerotic bony lesions. [facility], Radiant Results Inft User - 11/12/2019 3:22 PM CDTEXAM:CT ABDOMEN AND PELVIS WITH AND WITHOUT CONTRASTHISTORY: GI bleed With and without contrastCOMPARISON: November 11, 2019 CT abdomen and pelvis with contrast.DOSE: 3760.82 mGy-cmTECHNIQUE AND FINDINGS: Contiguous axial imaging from the level of the lungbases through the pubic symphysis was performed before and after theuncomplicated administration of 120 mL of intravenous Omnipaque contrast.Precontrast, arterial, venous and 90 seconds delayed phase images wereobtained according to the GI bleed protocol. Coronal and sagittalreconstructions were obtained. Auto mA and/or iterative reconstructionwere used to reduce radiation dose.FINDINGS:Suboptimal study secondary to presence of contrast from the previous CTscan from 11/11/2019 within the bowel lumen at various sites on theprecontrast study..LOWER THORAX: Bibasilar atelectasis. Scattered interstitial septalthickening, bronchiectasis and bronchial wall thickening. No cardiomegaly.LIVER: Cirrhotic liver morphology with nodular contours and hypertrophy ofthe segment 4, 1 2 and 3. A nonenhancing 3.7 cm segment 5 oblong hypodensestructure measures simple cyst attenuation. Mild periportal edema ispresent.GALLBLADDER AND BILIARY TREE: Prior cholecystectomy withpostcholecystectomy reservoir phenomenon.SPLEEN: Splenomegaly at 19.5 cm.PANCREAS: No ductal dilation or masses.ADRENAL GLANDS: No adrenal nodules.KIDNEYS: No hydronephrosis, stones, or masses. 2.4 cm right interpolarsimple cyst.PERITONEUM AND RETROPERITONEUM: No free air. Trace volume perihepatic andpericolonic simple ascites.LYMPH NODES: No lymphadenopathy.GI TRACT: Small sliding hiatal hernia. Again noted is extensive prominentascending colon, and transverse colon mucosal enhancement and subjacentfatty stranding, with relatively sparing of left colon. Dilatation oftransverse colon and air flu id levels. Appendix is nonvisualized.PELVIS/BLADDER: Urinary bladder is underdistended with concern wallthickening secondary to underdistention.VESSELS: Mild scattered aortoiliac atherosclerotic plaquing andcalcification results in no significant stenosis of the branch vesselostia.Small gastroesophageal varices..BONES AND SOFT TISSUES: No suspicious lytic or sclerotic bony lesions.IMPRESSIONStudy is limited secondary to presence of intraluminal contrast on thenoncontrast study from the prior CT scan. No active extravasation ofcontrast seen in the area where there was no contrast on the noncontrast C Tfrom today. no arterial secondary signs aneurysm, early draining vein (AVM ) seenChanges consistent right and transverse colon with mild dilatation oftransverse colon with air fluid levels . Consider infectious colitis. Nochanges of ischemia or vessel occlusion.Small sliding hiatal hernia.Trace per ihepatic and pericolonic ascites, likely reactive.Cirrhosis without focal hepatic lesion with sequela of portal hypertensionincluding splenomegaly and gastroesophageal varices.Preliminary Report Dictated by Resident: Yovany Cid MD., have reviewed this study and agree with ramses moran report.[facility] CenterPROFILE / HEMOGRAM - 30 minutes after transfusion of each [id number] 17:03:00 Test Item Value Reference Range Interpretation Comments WBC (test code = See_Comment [Automated message] 6690-2) The system [employer] generated this result transmitted ref erence range: 4.30 - 1 1.10 10*3/?L. The reference range was not used to int erpret this result as normal/abnormal . RBC (test code = 789-8) See_Comment L [Au tomated message] The system [employer] generated this result transmitted ref erence range: 3.93 - 5 .25 10*6/?L. The reference range was not used to int erpret this result as normal/abnormal . HGB (test code = 718-7) 11.3 g/dL 11.6-15 L HCT (test code = 35.1 % 35.7-45.2 L 4544-3) MCH (test code = 785-6) 29.0 pg 25.9-32.8 MCV (test code = 787-2) 90.0 fL 80.6-95.5 MCHC (test code = 32.2 g/dL 31.6-35.1 786-4) PLT (test code = 777-3) See_Comment LL [Au tomated message] The system [employer] generated this result transmitted ref erence range: 166 - 35 8 10*3/?L. The reference range was not used to int erpret this result as normal/abnormal . MPV (test code = 9.1 fL 9.5-12.9 L 31052-0) RDW-CV (test code = 17.2 % 12-15.5 H 788-0) RDW-SD (test code = 57.1 fL 39-49.9 H 18776-1) NRBC x10^3 (test code = See_Comment [Au tomated message] 1302564993) The system [employer] generated this result transmitted ref erence range: 10*3/?L. The reference range was not used to int erpret this result as normal/abnormal . NRBC/100 WBC (test code See_Comment [Au tomated message] = 5200686554) The system [employer] generated this result transmitted ref erence range: 0.0 - 10 .0 /100 WBCs. The reference range was not used to int erpret this result as normal/abnormal . IPF % (test code = 2.7 % 1.3-7.7 Platelet count 8466009808) measured by fluorescence me thod. Lab Interpretation Abnormal (test code = 95195-8) [facility] CenterPO[facility] ([facility])2019-11-12 16:59:00 Test Item Value Reference Range Interpretation Comments POCT GLU (test code = 2049034379) 127 mg/dL 70-110 H Lab Interpretation (test code = Abnormal 18939-8) [facility] CenterCLOSTRIDIUM DIFFICILE [id number] 16:24:00 Test Item Value Reference Range Interpretation Comments Clostridioides (Clostridium) Positive Negative A difficile (test code = 06518-5) Lab Interpretation (test code = Abnormal 67921-1) [facility] Platelets (in units): 1 Units~Indication: 2) Platelets < 50,000 with active hemorrhage orpotential to bleed from invasive [id number] 15:46:33 Test Item Value Reference Range Interpretation Comments Unit Blood Type (test A Pos code = 4410) ISBT Blood Type Code (test code = 448078) Unit Number (test code [id number] = 4411) Blood Expiration Date & Time (test code = 757588) Status Information Issued (test code = 4412) Product Identification Platelets (test code = 4413) Product Code (test [id number] Performed at [facility] code = 4414) Laboratory Services [facility] Blood [address] s [id number] Free: [phone] A No. [id number] [facility] Packed RBC (in units), 2 Units 2019-11-12 13:34:31 Test Item Value Reference Range Interpretation Comments Cross Match Result Compatible (test code = 4409) ISBT Blood Type Code (test code = 298335) Unit Blood Type (test A Pos code = 4410) Unit Number (test [id number] code = 4411) Blood Expiration Date & Time (test code = 272757) Status Information Issued (test code = 4412) Product Red Blood Cells Identification (test code = 4413) Product Code (test [id number] Performed at [facility] code = 4414) Laboratory Services [facility] Blood [address] [place] [id number] Free: [phone] A No. [id number] [facility] CenterPO[facility])2019-11-12 12:42:00 Test Item Value Reference Range Interpretation Comments POCT GLU (test code = 6328074753) 109 mg/dL 70-110 Lab Interpretation (test code = Normal 04212-1) [facility] (NA, K, CL, CO2, Glucose, BUN, Creatinine, CA)2019-11-12 11:04:00 Test Item Value Reference Range Interpretation Comments NA (test code = 133 mmol/L 135-145 L 0102466405) K (test code = 3.2 mmol/L 3.5-5 L 0590238863) CL (test code = 112 mmol/L 98-108 H 1126966972) CO2 TOTAL (test code = 12 mmol/L 23-31 L 5129868788) AGAP (test code = 2-16 1198229226) BUN (test code = 9 mg/dL 7-23 9341628453) GLUCOSE (test code = 46 mg/dL 70-110 LL 7205476732) CREATININE (test code = 0.22 mg/dL 0.5-1.04 L 3392651815) CALCIUM (test code = 5.5 mg/dL 8.6-10.6 LL 2083627395) eGFR Calculation mL/min/1.73m2 (Non-) (test code = 4832249772) eGFR Calculation mL/min/1.73m2 () (test code = 3686233781) NU (test code = NU) Association of Glomerular Filtration Rate (GFR) and Staging of Kidney Disease* + --+ --+ ------+| GFR (mL/min/1.73 m2) ?| With Kidney Damage ?| ?Without Kidney Damage+ --------+ --------+ +| ?>90 ?| ?Stage one ?| ? Normal ?+ ---+ ---+ -------+| ?60-89 ?| ?Stage two ?| ? Decreased GFR ? + --+ --+ ------+| ?30-59 ?| ?Stage three ?| ? Stage three ? + --+ --+ ------+| ?15-29 ?| ?Stage four ? | ? Stage four ?+ ---+ ---+ -------+| ?<15 (or dialysis) ? ?| ?Stage five ? | ? Stage five ?+ ---+ ---+ -------+ *Each stage assumes the associated GFR level has been in effect for at least three months. ?Stages 1 to 5, with or without kidney disease, indicate chronic kidney disease. Notes: Determination of stages one and two (with eGFR >59mL/min/1.73 m2) requires estimation of kidney damage for at least three months as defined by structural or functional abnormalities of the kidney, manifested by either:Pathological abnormalities or Markers of kidney damage (including abnormalities in the composition of the blood or urine or abnormalities in imaging tests). Lab Interpretation Abnormal (test code = 78367-9) [facility] CenterMagnesium [id number] 10:55:00 Test Item Value Reference Range Interpretation Comments MAGNESIUM (test code = 3106463046) 1.2 mg/dL 1.7-2.4 L Lab Interpretation (test code = Abnormal 18140-4) [facility] CenterHepatic Function Panel (ALB, T.PRO, BILI T, BU/BC, ALT, AST, ALK, PHOS)2019-11-12 10:55:00 Test Item Value Reference Range Interpretation Comments TOTAL BILI (test code = 4043829051) 0.7 mg/dL 0.1-1.1 BILI UNCON (test code = 7210047741) 0.5 mg/dL 0.1-1.1 BILI CONJ (test code = 3998917898) 0.0 mg/dL 0-0.3 T PROTEIN (test code = 3723721993) 3.0 g/dL 6.3-8.2 L ALBUMIN (test code = 2874533461) 1.2 g/dL 3.5-5 L ALK PHOS (test code = 6255139342) 39 U/L 34-122 ALTv (test code = 1742-6) 10 U/L 5-35 AST(SGOT) (test code = 4274888019) 18 U/L 13-40 Lab Interpretation (test code = Abnormal 01327-1) [facility] WITH [id number] 10:54:00 Test Item Value Reference Range Interpretation Comments WBC (test code = See_Comment [Automated 8045-2) message] The sy stem which generated this result transmitted reference range : 4.30 - 11.10 10*3/?L. The reference range was not used to interpret this result as normal/abnormal . RBC (test code = See_Comment L [Automated 199-8) message] The sy stem which generated this result transmitted reference range : 3.93 - 5.25 10*6/?L. The reference range was not used to interpret this result as normal/abnormal . HGB (test code = 5.5 g/dL 11.6-15 L 718-7) HCT (test code = 17.1 % 35.7-45.2 L 4544-3) MCV (test code = 97.2 fL 80.6-95.5 H 787-2) MCH (test code = 31.3 pg 25.9-32.8 785-6) MCHC (test code = 32.2 g/dL 31.6-35.1 786-4) RDW-SD (test code = 53.6 fL 39-49.9 H 87126-8) RDW-CV (test code = 15.3 % 12-15.5 788-0) PLT (test code = See_Comment LL [Automated 777-3) message] The sy stem which generated this result transmitted reference range : 166 - 358 10*3/ ?L. The reference r pardeep was not used to interpret this result as normal/abnormal . MPV (test code = 9.6 fL 9.5-12.9 44963-8) IPF % (test code = 1.9 % 1.3-7.7 Platelet count [id number]) measured by fluorescence method. NRBC/100 WBC (test See_Comment [Automat ed code = 8434413239) message] The system which generated this result transmitted reference range : 0.0 - 10.0 /100 WBCs. The refer ence range was not u sed to interpret th is result as normal/abnormal . NRBC x10^3 (test code <0.01 See_Comment [Auto mated = 7657868550) message] The s ystem which generated this result transmitted reference range : 10*3/?L. The reference range was not used to interpret this result as normal/abnormal . GRAN MAT (NEUT) % 81.5 % (test code = 770-8) IMM GRAN % (test code 1.10 % = 7944171360) LYMPH % (test code = 11.7 % 736-9) MONO % (test code = 4.6 % 5905-5) EOS % (test code = 0.9 % 713-8) BASO % (test code = 0.2 % 706-2) GRAN MAT x10^3(ANC) 4.45 10*3/uL 1.88-7.09 (test code = 1738059535) IMM GRAN x10^3 (test 0.06 10*3/uL 0-0.06 code = 9436315452) LYMPH x10^3 (test code 0.64 10*3/uL 1.32-3.29 L = 731-0) MONO x10^3 (test code 0.25 10*3/uL 0.33-0.92 L = 742-7) EOS x10^3 (test code = 0.05 10*3/uL 0.03-0.39 711-2) BASO x10^3 (test code <0.03 0.01-0.07 = 704-7) Lab Interpretation Abnormal (test code = 46418-7) [facility] CenterProthrombin Time / [id number] 10:30:00 Test Item Value Reference Range Interpretation Comments PROTIME PATIENT (test See_Comment H [Auto mated message] code = 5964-2) The system [employer] ich generated this result transmitted ref erence range: 10.1 - 1 2.6 Seconds. The reference range was not used to int erpret this result as normal/abnormal . INR (test code = 6301-6) Nor mal INR <1.1; Warfarin Therap eutic range 2.0 to 3. 0 or 2.5 to 3.5, dep ending upon the indica tions. Lab Interpretation (test Abnormal code = 75029-9) [facility] GLUCOSE (AUTOMATED)2019-11-12 10:07:00 Test Item Value Reference Range Interpretation Comments POCT GLU (test code = 5218596082) 45 mg/dL 70-110 LL Lab Interpretation (test code = Abnormal 14657-0) [facility] GLUCOSE (AUTOMATED)2019-11-12 10:07:00 Test Item Value Reference Range Interpretation Comments POCT GLU (test code = 5919781784) 101 mg/dL 70-110 Lab Interpretation (test code = Normal 93959-0) [facility] WITH [id number] 05:39:00 Test Item Value Reference Range Interpretation Comments WBC (test code = See_Comment [Automated 6690-2) message] The sy stem which generated this result transmitted reference range : 4.30 - 11.10 10*3/?L. The reference range was not used to interpret this result as normal/abnormal . RBC (test code = See_Comment L [Automated 789-8) message] The sy stem which generated this result transmitted reference range : 3.93 - 5.25 10*6/?L. The reference range was not used to interpret this result as normal/abnormal . HGB (test code = 7.8 g/dL 11.6-15 L 718-7) HCT (test code = 23.8 % 35.7-45.2 L 4544-3) MCV (test code = 94.4 fL 80.6-95.5 787-2) MCH (test code = 31.0 pg 25.9-32.8 785-6) MCHC (test code = 32.8 g/dL 31.6-35.1 786-4) RDW-SD (test code = 52.9 fL 39-49.9 H 27157-8) RDW-CV (test code = 15.4 % 12-15.5 788-0) PLT (test code = See_Comment LL [Automated 777-3) message] The sy stem which generated this result transmitted reference range : 166 - 358 10*3/ ?L. The reference r pardeep was not used to interpret this result as normal/abnormal . MPV (test code = 10.1 fL 9.5-12.9 09153-7) IPF % (test code = 2.1 % 1.3-7.7 Platelet count [id number]) measured by fluorescence method. NRBC/100 WBC (test See_Comment [Automat ed code = 4918539738) message] The system which generated this result transmitted reference range : 0.0 - 10.0 /100 WBCs. The refer ence range was not u sed to interpret th is result as normal/abnormal . NRBC x10^3 (test code <0.01 See_Comment [Auto mated = 1795058807) message] The s ystem which generated this result transmitted reference range : 10*3/?L. The reference range was not used to interpret this result as normal/abnormal . GRAN MAT (NEUT) % 78.1 % (test code = 770-8) IMM GRAN % (test code 3.10 % = 8320560461) LYMPH % (test code = 13.3 % 736-9) MONO % (test code = 4.4 % 5905-5) EOS % (test code = 0.9 % 713-8) BASO % (test code = 0.2 % 706-2) GRAN MAT x10^3(ANC) 5.09 10*3/uL 1.88-7.09 (test code = 1662231572) IMM GRAN x10^3 (test 0.20 10*3/uL 0-0.06 H code = 1473227697) LYMPH x10^3 (test code 0.87 10*3/uL 1.32-3.29 L = 731-0) MONO x10^3 (test code 0.29 10*3/uL 0.33-0.92 L = 742-7) EOS x10^3 (test code = 0.06 10*3/uL 0.03-0.39 711-2) BASO x10^3 (test code <0.03 0.01-0.07 = 704-7) BANDS (test code = Increased A 6156863482) TOXIC CHANGES (test Present A code = 803-7) Lab Interpretation Abnormal (test code = 45101-0) [facility] GLUCOSE (AUTOMATED)2019-11-12 04:36:00 Test Item Value Reference Range Interpretation Comments POCT GLU (test code = 1454909610) 113 mg/dL 70-110 H Lab Interpretation (test code = Abnormal 82466-9) [facility] GLUCOSE (AUTOMATED)2019-11-12 01:15:00 Test Item Value Reference Range Interpretation Comments POCT GLU (test code = 7077853457) 103 mg/dL 70-110 Lab Interpretation (test code = Normal 61841-1) [facility] WITH [id number] 22:32:00 Test Item Value Reference Range Interpretation Comments WBC (test code = See_Comment [Automated 6690-2) message] The sy stem which generated this result transmitted reference range : 4.30 - 11.10 10*3/?L. The reference range was not used to interpret this result as normal/abnormal . RBC (test code = See_Comment L [Automated 119-8) message] The sy stem which generated this result transmitted reference range : 3.93 - 5.25 10*6/?L. The reference range was not used to interpret this result as normal/abnormal . HGB (test code = 7.7 g/dL 11.6-15 L 718-7) HCT (test code = 24.0 % 35.7-45.2 L 4544-3) MCV (test code = 96.4 fL 80.6-95.5 H 787-2) MCH (test code = 30.9 pg 25.9-32.8 785-6) MCHC (test code = 32.1 g/dL 31.6-35.1 786-4) RDW-SD (test code = 53.6 fL 39-49.9 H 97440-7) RDW-CV (test code = 15.3 % 12-15.5 788-0) PLT (test code = See_Comment LL [Automated 777-3) message] The sy stem which generated this result transmitted reference range : 166 - 358 10*3/ ?L. The reference r pardeep was not used to interpret this result as normal/abnormal . MPV (test code = 10.5 fL 9.5-12.9 01430-1) IPF % (test code = 3.0 % 1.3-7.7 Platelet count 2809767250) measured by fluorescence method. NRBC/100 WBC (test See_Comment [Automat ed code = 1425832129) message] The system which generated this result transmitted reference range : 0.0 - 10.0 /100 WBCs. The refer ence range was not u sed to interpret th is result as normal/abnormal . NRBC x10^3 (test code <0.01 See_Comment [Auto mated = 7379694108) message] The s ystem which generated this result transmitted reference range : 10*3/?L. The reference range was not used to interpret this result as normal/abnormal . GRAN MAT (NEUT) % 82.8 % (test code = 770-8) IMM GRAN % (test code 1.50 % = 0190250167) LYMPH % (test code = 10.9 % 736-9) MONO % (test code = 4.2 % 5905-5) EOS % (test code = 0.5 % 713-8) BASO % (test code = 0.1 % 706-2) GRAN MAT x10^3(ANC) 6.44 10*3/uL 1.88-7.09 (test code = 5749444589) IMM GRAN x10^3 (test 0.12 10*3/uL 0-0.06 H code = 7573975231) LYMPH x10^3 (test code 0.85 10*3/uL 1.32-3.29 L = 731-0) MONO x10^3 (test code 0.33 10*3/uL 0.33-0.92 = 742-7) EOS x10^3 (test code = 0.04 10*3/uL 0.03-0.39 711-2) BASO x10^3 (test code <0.03 0.01-0.07 = 704-7) BANDS (test code = Increased A 3420898520) Lab Interpretation Abnormal (test code = 88666-4) [facility]2019-11-11 21:50:00 Test Item Value Reference Range Interpretation Comments POCT GLU (test code = 6733964632) 105 mg/dL 70-110 Lab Interpretation (test code = Normal 03735-7) [facility] CenterPrepare Packed RBC (in units), 1 Units 2019-11-11 18:52:37 Test Item Value Reference Range Interpretation Comments Cross Match Result Compatible (test code = 4409) ISBT Blood Type Code (test code = 703984) Unit Blood Type (test A Pos code = 4410) Unit Number (test [id number] code = 4411) Blood Expiration Date & Time (test code = 899256) Status Information Issued (test code = 4412) Product Red Blood Cells Identification (test code = 4413) Product Code (test K2904S33 Performed at [facility] code = 4414) Laboratory Services - [facility] Blood Xgry097 [facility] s [address]Dhcx Free: [phone] A No. [id number] [facility] CenterType and Screen - ONCE Ncsygqr7532-03-26 18:38:13 Test Item Value Reference Range Interpretation Comments ABO & RH (test code A POSITIVE Performe d at [facility] = 20) Laboratory Serv ices - [facility] Blood Bank3 [address] [facility] s [address]Svyy Free: [phone] A No. [id number] IAT (test code = Negative Performed a t [facility] 1185) Laboratory Serv [facility] Blood Bank[address] [place] [address] [place] [address]Kimt Free: [phone] A No. [id number] [facility] GLUCOSE (AUTOMATED)2019-11-11 17:29:00 Test Item Value Reference Range Interpretation Comments POCT GLU (test code = 9909485240) 233 mg/dL 70-110 H Lab Interpretation (test code = Abnormal 99972-9) [facility] CenterMRSA / MSSA Screen by Brock CHOUDHURYXmqsu0753-05-92 16:55:00 Test Item Value Reference Range Interpretation Comments MSSA Screen by Brock CHOUDHURY (test code Negative Negative = 03454-8) MRSA/MSSA Positive? (test code = No No 9215951871) Lab Interpretation (test code = Normal 49777-3) [facility] GLUCOSE (AUTOMATED)2019-11-11 16:29:00 Test Item Value Reference Range Interpretation Comments POCT GLU (test code = 5091265255) 211 mg/dL 70-110 H Lab Interpretation (test code = Abnormal 34297-8) [facility] ABDOMEN PELVIS W [id number] 15:28:52 1. ?No evidence of bowel obstruction. Prominent mucosal enhancement in thedistal stomach suggests gastritis. Mural thickening and mucosal enhancementseen involving the ascending and transverse colon may represent congestivechanges versus colitis. There is surrounding free fluid and fat stranding. 2. ?Cirrhosis with portal hypertension. A hypodensity is seen in the rightlobe of the liver (segment )measuring approximately 2.6 cm,indeterminate on this single phase study. Recommend further evaluation withMRI. EXAM: CT ABDOMEN AND PELVIS WITH CONTRAST HISTORY: 59-year-old female with bowel obstruction. COMPARISON: November 09, 2019 DOSE: Total exam DLP 906 mGy-cm TECHNIQUE AND FINDINGS: Contiguous axial imaging was performed after theuncomplicated administration of 120 cc of intravenous Omnipaque cont rast.Coronal and sagittal reconstructions were obtained. FINDINGS:LOWER THORAX: Bibasilar atelectasis is seen but no evidence of pleural orpericardial effusion. LIVER: Cirrhosis with portal hypertension. A hypodensity is seen in theright lobe of the liver (segment ) measuring approximately 3.6 cm,indeterminate on this single phase study. Patent portal vein and hepaticvenous branches. Mild periportal edema is unchanged. GALLBLADDER AND BILIARY TREE: Prominent extrahepatic CBD likely secondaryto prior cholecystectomy. SPLEEN: Enlarged spleen but no focal lesions. PANCREAS: No ductal dilation or focal lesions. ADRENAL GLANDS: No adrenal nodules. KIDNEYS: No hydronephrosis, stones, or solid lesions. Stable cyst is seenin the right kidney. PERITONEUM AND RETROPERITONEUM: Minimal free fluid is seen in the upperabdomen, slightly worse when compared to the prior study. LYMPH NODES: No lymphadenopathyis seen. GI TRACT: No evidence of dilated bowel loops. Prominent mucosal enhancementis seen in the distal stomach suggesting gastritis (301:41). The ?ascendingand transverse colon show mural thickeningand mucosal enhancement withsome surrounding fat stranding which may represent colitis versuscongestive changes. No evidence of appendicitis or diverticulitis. PELVIS/BLADDER: The urinary bladder appears normal. No adnexal masses areseen. VESSELS: Scattered atherosclerotic calcifications. An enlarged m ain portalvein. BONES AND SOFT TISSUES: No suspicious lytic or sclerotic bone lesions. [facility], Radiant Results Inft User - 11/11/2019 10:29 AM CDTEXAM: CT ABDOMEN AND PELVIS WITH CONTRASTHISTORY: 59-year-old female with bowel obstruction.COMPARISON: November 09, 2019DOSE: Total exam DLP 906 mGy-cmTECHNIQUE AND FINDINGS: Contiguous axial imaging was performed after theuncomplicated administration of 120 cc of intravenous Omnipaque contrast.Coronal and sagittal reconstructions were obtained.FINDINGS:LOWERTHORAX: Bibasilar atelectasis is seen but no evidence of pleural orpericardial effusion. LIVER: Cirrhosis with portal hypertension. A hypodensity is seen in theright lobe of the liver (segment ) measuring approximately 3.6 cm,indeterminate on this single phase study. Patent portal vein and hepaticvenous branches. Mild periportal edema is unchanged.GALLBLADDER AND BILIARY TREE: Prominent extrahepatic CBD likely secondaryto prior cholecystectomy.SPLEEN: Enlarged spleen but no focal lesions.PANCREAS:No ductal dilation or focal lesions.ADRENAL GLANDS: No adrenal nodules.KIDNEYS: No hydronephrosis, stones, or solid lesions. Stable cyst is seenin the right kidney.PERITONEUM AND RETROPERITONEUM: Minimal free fluid is seen in the upperabdomen, slightly worse when compared to the prior study.LYMPH NODES: No lymphadenopathy is seen.GI TRACT: No evidence of dilated bowel loops. Prominent mucosal enhancementis seen in the distal stomach suggesting gastritis (301:41). The ascendingand transverse colon show mural thickening and mucosal enhancement withsome surrounding fat stranding which may represent colitis versuscongestive changes. No evidence of appendicitis or diverticulitis.PELVIS/BLADDER: The urinary bladder appears normal. No adnexal masses areseen.VESSELS: Scattered atherosclerotic calcifications. An enlarged main portalvein.BONES AND SOFT TISSUES: No suspicious lytic or sclerotic bone lesions.IMPRESSION1. No evidence of bowel obstruction. Prominent mucosal enhancement in thedistal stomachsuggests gastritis. Mural thickening and mucosal enhancementseen involving the ascending and transverse colon may represent congestivechanges versus colitis. There is surrounding free fluid and fat stra nding.2. Cirrhosis with portal hypertension. A hypodensity is seen in the rightlobe of the liver (segment ) measuring approximately 2.6 cm,indeterminate on this single phase study. Recommend furtherevaluation withMRI.[facility] CenterCB WITH [id number] 15:24:00 Test Item Value Reference Range Interpretation Comments WBC (test code = See_Comment [Automated 4190-2) message] The system which generated this result transmit thong reference range : 4.30 - 11.10 10*3/?L. The reference range was not used to interpret this result as normal/abnormal . RBC (test code = See_Comment L [Automated 499-8) message] The system which generated this result transmit thong reference range : 3.93 - 5.25 10*6/?L. The reference range was not used to interpret this result as normal/abnormal . HGB (test code = 6.9 g/dL 11.6-15 L 718-7) HCT (test code = 22.9 % 35.7-45.2 L 4544-3) MCV (test code = 98.7 fL 80.6-95.5 H 787-2) MCH (test code = 29.7 pg 25.9-32.8 785-6) MCHC (test code = 30.1 g/dL 31.6-35.1 L 786-4) RDW-SD (test code = 56.2 fL 39-49.9 H 97606-2) RDW-CV (test code = 15.9 % 12-15.5 H 788-0) PLT (test code = See_Comment LL [Automated 777-3) message] The system which generated this result transmit thong reference range : 166 - 358 10*3/ ?L. The reference range was not u sed to interpret th is result as normal/abnormal . MPV (test code = 10.7 fL 9.5-12.9 07021-1) IPF % (test code = 3.6 % 1.3-7.7 Platelet count 4840290253) measured by fluorescence method. NRBC/100 WBC (test See_Comment [Automat ed code = 8716185426) message] The system which generated this result transmit thong reference range : 0.0 - 10.0 /100 WBCs. The reference range was not used to interpret this result as normal/abnormal . NRBC x10^3 (test code <0.01 See_Comment [Auto mated = 6626381256) message] The system which generated this result transmit thong reference range : 10*3/?L. The reference range was not used to interpret this result as normal/abnormal . GRAN MAT (NEUT) % 83.1 % (test code = 770-8) IMM GRAN % (test code 1.80 % = 4675612649) LYMPH % (test code = 10.5 % 736-9) MONO % (test code = 4.4 % 5905-5) EOS % (test code = 0.1 % 713-8) BASO % (test code = 0.1 % 706-2) GRAN MAT x10^3(ANC) 7.11 10*3/uL 1.88-7.09 H (test code = 0127569643) IMM GRAN x10^3 (test 0.15 10*3/uL 0-0.06 H code = 3697721218) LYMPH x10^3 (test 0.90 10*3/uL 1.32-3.29 L code = 731-0) MONO x10^3 (test code 0.38 10*3/uL 0.33-0.92 = 742-7) EOS x10^3 (test code <0.03 0.03-0.39 L = 711-2) BASO x10^3 (test code <0.03 0.01-0.07 = 704-7) BANDS (test code = MARKED INCREASED A 6273274385) DOHLE BODIES (test Present A code = 7792-5) REACT LYMPHS (test Rare code = 8698664601) TOXIC CHANGES (test Present A code = 803-7) Lab Interpretation Abnormal (test code = 02813-4) [facility] CenterFIBRINOGEN2020-04-30 14:47:00 Test Item Value Reference Range Interpretation Comments Fibrinogen (test code = 0821130637) 356 mg/dL 167-453 Lab Interpretation (test code = Normal 49423-9) [facility] CenterURINE [id number] 14:04:00 Test Item Value Reference Range Interpretation Comments URINE CULTURE (test 10,000 - 100,000 CFU/mL code = 630-4) mixed aerobic organisms - suggests endogenous microbial contamination [facility] CenterAbdominal 1 View - To confirm nasogastric tube placement.2019-11-11 14:03:13 Nonspecific gaseous dilatation of transverse colon, which can be seen inthe setting of partial distal large bowel obstruction or adynamic ileus. No esophagogastric tube, visualized in the psblc-ng-wpls. Preliminary Report Dictated by Resident: Liz Quigley MD., have reviewed this study and agree with theabove report.EXAM: XR ABDOMEN 1 VW HISTORY: 59 years-old Female; NG placement TECHNIQUE: Frontal radiograph of the abdomen and pelvis was obtained. COMPARISON: KUB 11/09/2019. FINDINGS: No esophagogastric tube was visualized in the trrli-gh-kdkf. Nonspecific gaseous dilatation of transverse colon is noted, measuring upto 9 cm, new compared to the prior. Gas in the descending and sigmoid colonis noted. No abnormal calcifications or radiopaque stones are identified. Cholecystectomy clips are present in the right upper quadrant. Scatteredsurgical clips are present in the thorax. No acute bony abnormalities are noted. [facility], Radiant Results Inft User - 11/11/2019 9:04 AM CDTEXAM: XR ABDOMEN 1 VWHISTORY: 59 years-old Female; NG placement TECHNIQUE: Frontal radiograph of the abdomen and pelvis was obtained.COMPARISON: KUB 11/09/2019. FINDINGS:No esophagogastric tube was visu alized in the zvzjz-iv-cibl.Nonspecific gaseous dilatation of transverse colon is noted, measuring upto 9 cm, new compared to the prior. Gas in the descending and sigmoid colonis noted.No abnormal calcifications or radiopaque stones are identified. Cholecystectomy clips are present in the right upper quadrant. Scatteredsurgical clips are present in the thorax.No acute bony abnormalities are noted.IMPRESSIONNonspecific gaseous dilatation of transverse colon, which can be seen inthe setting of partialdistal large bowel obstruction or adynamic ileus.No esophagogastric tube, visualized in the zdvtf-yt-uqjx.Preliminary Report Dictated by Resident: Liz Arias MD., have reviewedthis study and agree with theabove report.[facility] GLUCOSE (AUTOMATED)2019-11-11 12:47:00 Test Item Value Reference Range Interpretation Comments POCT GLU (test code = 4762636826) 228 mg/dL 70-110 H Lab Interpretation (test code = Abnormal 28913-6) [facility] CenterN-TERMINAL [id number] 11:44:00 Test Item Value Reference Range Interpretation Comments NT-proBNP (test code 400 pg/mL See_Comment H [Autom ated = 3672960490) message] The system which generated this result transmitted reference range : <=125. The reference range was not used to interpret this result as normal/abnormal . NU (test code = NU) Biotin has been reported to cause a negative bias, interpret results relative to patient's use of biotin. Lab Interpretation Abnormal (test code = 77186-2) [facility]. METABOLIC PANEL (96558)2019-11-11 11:32:00 Test Item Value Reference Range Interpretation Comments NA (test code = 136 mmol/L 135-145 4506527112) K (test code = 3.6 mmol/L 3.5-5 2537878149) CL (test code = 110 mmol/L 98-108 H 7687739681) CO2 TOTAL (test code = 20 mmol/L 23-31 L 0195143920) AGAP (test code = 2-16 3835693847) BUN (test code = 17 mg/dL 7-23 2384627923) GLUCOSE (test code = 153 mg/dL 70-110 H 8594547985) CREATININE (test code = 0.47 mg/dL 0.5-1.04 L 8423022219) TOTAL BILI (test code = 2.0 mg/dL 0.1-1.1 H 5881371923) CALCIUM (test code = 6.6 mg/dL 8.6-10.6 L 7669111108) T PROTEIN (test code = 5.0 g/dL 6.3-8.2 L 5761622446) ALBUMIN (test code = 2.1 g/dL 3.5-5 L 4020421564) ALK PHOS (test code = 79 U/L 34-122 8729845884) ALTv (test code = 21 U/L 5-35 1742-6) AST(SGOT) (test code = 27 U/L 13-40 1322364279) eGFR Calculation mL/min/1.73m2 (Non-) (test code = 5466955106) eGFR Calculation mL/min/1.73m2 () (test code = 0297127044) NU (test code = NU) Association of Glomerular Filtration Rate (GFR) and Staging of Kidney Disease* + --+ --+ ------+| GFR (mL/min/1.73 m2) ?| With Kidney Damage ?| ?Without Kidney Damage+ --------+ --------+ +| ?>90 ?| ?Stage one ?| ? Normal ?+ ---+ ---+ -------+| ?60-89 ?| ?Stage two ?| ? Decreased GFR ? + --+ --+ ------+| ?30-59 ?| ?Stage three ?| ? Stage three ? + --+ --+ ------+| ?15-29 ?| ?Stage four ? | ? Stage four ?+ ---+ ---+ -------+| ?<15 (or dialysis) ? ?| ?Stage five ? | ? Stage five ?+ ---+ ---+ -------+ *Each stage assumes the associated GFR level has been in effect for at least three months. ?Stages 1 to 5, with or without kidney disease, indicate chronic kidney disease. Notes: Determination of stages one and two (with eGFR >59mL/min/1.73 m2) requires estimation of kidney damage for at least three months as defined by structural or functional abnormalities of the kidney, manifested by either:Pathological abnormalities or Markers of kidney damage (including abnormalities in the composition of the blood or urine or abnormalities in imaging tests). Lab Interpretation Abnormal (test code = 06137-0) [facility] CenterPHOSPHORUS2020-04-30 11:32:00 Test Item Value Reference Range Interpretation Comments PHOSPHORUS (test code = 8669588873) 1.4 mg/dL 2.5-5 L Lab Interpretation (test code = Abnormal 12169-5) [facility] WITH [id number] 10:41:00 Test Item Value Reference Range Interpretation Comments WBC (test code = See_Comment [Automated 6690-2) message] The sy stem which generated this result transmitted reference range : 4.30 - 11.10 10*3/?L. The reference range was not used to interpret this result as normal/abnormal . RBC (test code = See_Comment L [Automated 789-8) message] The sy stem which generated this result transmitted reference range : 3.93 - 5.25 10*6/?L. The reference range was not used to interpret this result as normal/abnormal . HGB (test code = 7.3 g/dL 11.6-15 L 718-7) HCT (test code = 23.6 % 35.7-45.2 L 4544-3) MCV (test code = 98.3 fL 80.6-95.5 H 787-2) MCH (test code = 30.4 pg 25.9-32.8 785-6) MCHC (test code = 30.9 g/dL 31.6-35.1 L 786-4) RDW-SD (test code = 57.1 fL 39-49.9 H 13538-3) RDW-CV (test code = 15.8 % 12-15.5 H 788-0) PLT (test code = See_Comment LL [Automated 777-3) message] The sy stem which generated this result transmitted reference range : 166 - 358 10*3/ ?L. The reference r pardeep was not used to interpret this result as normal/abnormal . MPV (test code = 11.7 fL 9.5-12.9 62177-3) IPF % (test code = 4.7 % 1.3-7.7 Platelet count [id number]) measured by fluorescence method. NRBC/100 WBC (test See_Comment [Automat ed code = 5899784685) message] The system which generated this result transmitted reference range : 0.0 - 10.0 /100 WBCs. The refer ence range was not u sed to interpret th is result as normal/abnormal . NRBC x10^3 (test code See_Comment [Auto mated = 7764264847) message] The s ystem which generated this result transmitted reference range : 10*3/?L. The reference range was not used to interpret this result as normal/abnormal . GRAN MAT (NEUT) % 78.4 % (test code = 770-8) IMM GRAN % (test code 5.40 % = 2331046821) LYMPH % (test code = 11.3 % 736-9) MONO % (test code = 4.7 % 5905-5) EOS % (test code = 0.1 % 713-8) BASO % (test code = 0.1 % 706-2) GRAN MAT x10^3(ANC) 6.12 10*3/uL 1.88-7.09 (test code = 4874582373) IMM GRAN x10^3 (test 0.42 10*3/uL 0-0.06 H code = 9080808394) LYMPH x10^3 (test code 0.88 10*3/uL 1.32-3.29 L = 731-0) MONO x10^3 (test code 0.37 10*3/uL 0.33-0.92 = 742-7) EOS x10^3 (test code = <0.03 0.03-0.39 L 711-2) BASO x10^3 (test code <0.03 0.01-0.07 = 704-7) BASO STIPPLING (test Present A code = 703-9) Lab Interpretation Abnormal (test code = 72047-2) [facility]2019-11-11 09:33:00 Test Item Value Reference Range Interpretation Comments POCT GLU (test code = 5129556833) 168 mg/dL 70-110 H Lab Interpretation (test code = Abnormal 10471-3) [facility] WITH [id number] 06:13:00 Test Item Value Reference Range Interpretation Comments WBC (test code = See_Comment [Automated 6690-2) message] The system which generated this result transmit thong reference range : 4.30 - 11.10 10*3/?L. The reference range was not used to interpret this result as normal/abnormal . RBC (test code = See_Comment L [Automated 789-8) message] The system which generated this result transmit thong reference range : 3.93 - 5.25 10*6/?L. The reference range was not used to interpret this result as normal/abnormal . HGB (test code = 7.0 g/dL 11.6-15 L 718-7) HCT (test code = 21.9 % 35.7-45.2 L 4544-3) MCV (test code = 96.5 fL 80.6-95.5 H 787-2) MCH (test code = 30.8 pg 25.9-32.8 785-6) MCHC (test code = 32.0 g/dL 31.6-35.1 786-4) RDW-SD (test code = 56.0 fL 39-49.9 H 72186-8) RDW-CV (test code = 16.0 % 12-15.5 H 788-0) PLT (test code = See_Comment LL [Automated 777-3) message] The system which generated this result transmit thong reference range : 166 - 358 10*3/ ?L. The reference range was not u sed to interpret th is result as normal/abnormal . MPV (test code = 10.2 fL 9.5-12.9 14152-8) IPF % (test code = 2.8 % 1.3-7.7 Platelet count 8213839939) measured by fluorescence method. NRBC/100 WBC (test See_Comment [Automat ed code = 6871002134) message] The system which generated this result transmit thong reference range : 0.0 - 10.0 /100 WBCs. The reference range was not used to interpret this result as normal/abnormal . NRBC x10^3 (test code <0.01 See_Comment [Auto mated = 9489520031) message] The system which generated this result transmit thong reference range : 10*3/?L. The reference range was not used to interpret this result as normal/abnormal . GRAN MAT (NEUT) % 85.0 % (test code = 770-8) IMM GRAN % (test code 0.90 % = 7523844389) LYMPH % (test code = 10.2 % 736-9) MONO % (test code = 3.8 % 5905-5) EOS % (test code = 0.1 % 713-8) BASO % (test code = 0.0 % 706-2) GRAN MAT x10^3(ANC) 6.63 10*3/uL 1.88-7.09 (test code = 6604896201) IMM GRAN x10^3 (test 0.07 10*3/uL 0-0.06 H code = 2659874815) LYMPH x10^3 (test 0.80 10*3/uL 1.32-3.29 L code = 731-0) MONO x10^3 (test code 0.30 10*3/uL 0.33-0.92 L = 742-7) EOS x10^3 (test code <0.03 0.03-0.39 L = 711-2) BASO x10^3 (test code <0.03 0.01-0.07 = 704-7) BANDS (test code = MARKED INCREASED A 8472293886) Lab Interpretation Abnormal (test code = 29122-0) [facility] Metabolic Panel (NA, K, CL, CO2, Glucose, BUN, Creatinine, CA)2019-11-11 06:00:00 Test Item Value Reference Range Interpretation Comments NA (test code = 138 mmol/L 135-145 4831923590) K (test code = 3.6 mmol/L 3.5-5 6159988240) CL (test code = 111 mmol/L 98-108 H 9382523297) CO2 TOTAL (test code = 20 mmol/L 23-31 L 4402534100) AGAP (test code = 2-16 8522463037) BUN (test code = 17 mg/dL 7-23 6692096202) GLUCOSE (test code = 136 mg/dL 70-110 H 6832089083) CREATININE (test code = 0.46 mg/dL 0.5-1.04 L 4427514263) CALCIUM (test code = 6.5 mg/dL 8.6-10.6 L 9966878938) eGFR Calculation mL/min/1.73m2 (Non-) (test code = 8262752513) eGFR Calculation mL/min/1.73m2 () (test code = 7379538569) NU (test code = NU) Association of Glomerular Filtration Rate (GFR) and Staging of Kidney Disease* + --+ --+ ------+| GFR (mL/min/1.73 m2) ?| With Kidney Damage ?| ?Without Kidney Damage+ --------+ --------+ +| ?>90 ?| ?Stage one ?| ? Normal ?+ ---+ ---+ -------+| ?60-89 ?| ?Stage two ?| ? Decreased GFR ? + --+ --+ ------+| ?30-59 ?| ?Stage three ?| ? Stage three ? + --+ --+ ------+| ?15-29 ?| ?Stage four ? | ? Stage four ?+ ---+ ---+ -------+| ?<15 (or dialysis) ? ?| ?Stage five ? | ? Stage five ?+ ---+ ---+ -------+ *Each stage assumes the associated GFR level has been in effect for at least three months. ?Stages 1 to 5, with or without kidney disease, indicate chronic kidney disease. Notes: Determination of stages one and two (with eGFR >59mL/min/1.73 m2) requires estimation of kidney damage for at least three months as defined by structural or functional abnormalities of the kidney, manifested by either:Pathological abnormalities or Markers of kidney damage (including abnormalities in the composition of the blood or urine or abnormalities in imaging tests). Lab Interpretation Abnormal (test code = 83779-2) [facility] [id number] 06:00:00 Test Item Value Reference Range Interpretation Comments MAGNESIUM (test code = 1404983902) 1.3 mg/dL 1.7-2.4 L Lab Interpretation (test code = Abnormal 74255-5) [facility] CenterHepatic Function Panel (ALB, T.PRO, BILI T, BU/BC, ALT, AST, ALK, PHOS)2019-11-11 06:00:00 Test Item Value Reference Range Interpretation Comments TOTAL BILI (test code = 0332530837) 2.1 mg/dL 0.1-1.1 H BILI UNCON (test code = 1880565693) 1.6 mg/dL 0.1-1.1 H BILI CONJ (test code = 2381524470) 0.0 mg/dL 0-0.3 T PROTEIN (test code = 3949591186) 4.8 g/dL 6.3-8.2 L ALBUMIN (test code = 8858898489) 2.0 g/dL 3.5-5 L ALK PHOS (test code = 4245740262) 59 U/L 34-122 ALTv (test code = 1742-6) 19 U/L 5-35 AST(SGOT) (test code = 5536428517) 27 U/L 13-40 Lab Interpretation (test code = Abnormal 31056-3) [facility] CenterProthrombin Time / [id number] 05:43:00 Test Item Value Reference Range Interpretation Comments PROTIME PATIENT (test See_Comment H [Auto mated message] code = 5964-2) The system [employer] generated this result transmitted ref erence range: 10.1 - 1 2.6 Seconds. The reference range was not used to int erpret this result as normal/abnormal . INR (test code = 6301-6) Nor mal INR <1.1; Warfarin Therap eutic range 2.0 to 3. 0 or 2.5 to 3.5, dep ending upon the indica tions. Lab Interpretation (test Abnormal code = 38801-1) [facility] GLUCOSE (AUTOMATED)2019-11-11 05:18:00 Test Item Value Reference Range Interpretation Comments POCT GLU (test code = 9089234473) 191 mg/dL 70-110 H Lab Interpretation (test code = Abnormal 01228-4) [facility] GLUCOSE (AUTOMATED)2019-11-11 02:28:00 Test Item Value Reference Range Interpretation Comments POCT GLU (test code = 0455381495) 202 mg/dL 70-110 H Lab Interpretation (test code = Abnormal 06512-3) [facility] CenterALPHA [id number] 00:34:00 Test Item Value Reference Range Interpretation Comments AFP (test code = 8.4 ng/mL See_Comment H [Automated 1359289534) message] The system which generated this result transmitted reference range : <=7.5. The reference range was not used to interpret this result as normal/abnormal . NU (test code = NU) Biotin has been reported to cause a negative bias, interpret results relative to patient's use of biotin. Lab Interpretation Abnormal (test code = 84853-1) [facility] WITH [id number] 00:30:00 Test Item Value Reference Range Interpretation Comments WBC (test code = See_Comment [Automated 6690-2) message] The system which generated this result transmit thong reference range : 4.30 - 11.10 10*3/?L. The reference range was not used to interpret this result as normal/abnormal . RBC (test code = See_Comment L [Automated 789-8) message] The system which generated this result transmit thong reference range : 3.93 - 5.25 10*6/?L. The reference range was not used to interpret this result as normal/abnormal . HGB (test code = 8.8 g/dL 11.6-15 L 718-7) HCT (test code = 27.7 % 35.7-45.2 L 4544-3) MCV (test code = 95.2 fL 80.6-95.5 787-2) MCH (test code = 30.2 pg 25.9-32.8 785-6) MCHC (test code = 31.8 g/dL 31.6-35.1 786-4) RDW-SD (test code = 53.6 fL 39-49.9 H 37507-5) RDW-CV (test code = 15.7 % 12-15.5 H 788-0) PLT (test code = See_Comment LL [Automated 777-3) message] The system which generated this result transmit thong reference range : 166 - 358 10*3/ ?L. The reference range was not u sed to interpret th is result as normal/abnormal . MPV (test code = 10.5 fL 9.5-12.9 00607-7) IPF % (test code = 4.0 % 1.3-7.7 Platelet count 1123969909) measured by fluorescence method. NRBC/100 WBC (test See_Comment [Automat ed code = 3341358019) message] The system which generated this result transmit thong reference range : 0.0 - 10.0 /100 WBCs. The reference range was not used to interpret this result as normal/abnormal . NRBC x10^3 (test code <0.01 See_Comment [Auto mated = 6011657674) message] The system which generated this result transmit thong reference range : 10*3/?L. The reference range was not used to interpret this result as normal/abnormal . GRAN MAT (NEUT) % 85.3 % (test code = 770-8) IMM GRAN % (test code 2.50 % = 0110109398) LYMPH % (test code = 7.7 % 736-9) MONO % (test code = 4.4 % 5905-5) EOS % (test code = 0.0 % 713-8) BASO % (test code = 0.1 % 706-2) GRAN MAT x10^3(ANC) 8.57 10*3/uL 1.88-7.09 H (test code = 2318913881) IMM GRAN x10^3 (test 0.25 10*3/uL 0-0.06 H code = 5701924050) LYMPH x10^3 (test 0.77 10*3/uL 1.32-3.29 L code = 731-0) MONO x10^3 (test code 0.44 10*3/uL 0.33-0.92 = 742-7) EOS x10^3 (test code <0.03 0.03-0.39 L = 711-2) BASO x10^3 (test code <0.03 0.01-0.07 = 704-7) BASO STIPPLING (test Present A code = 703-9) LENY CELLS (test code 2+ See_Comment A [Auto mated = 7741-9) message] The system which generated this result transmit thong reference range : (none). The reference range was not used to interpret this result as normal/abnormal . BANDS (test code = MARKED INCREASED A 3777388800) Lab Interpretation Abnormal (test code = 98426-0) [facility] Acid Whole [id number] 00:08:00 Test Item Value Reference Range Interpretation Comments LACTIC ACID (test code = 2.62 mmol/L 0.5-2.2 H 0542503321) Lab Interpretation (test code = Abnormal 80455-3) [facility] GLUCOSE (AUTOMATED)2019-11-10 21:36:00 Test Item Value Reference Range Interpretation Comments POCT GLU (test code = 9002997587) 260 mg/dL 70-110 H Lab Interpretation (test code = Abnormal 71286-4) [facility] CenterN-TERMINAL [id number] 18:12:00 Test Item Value Reference Range Interpretation Comments NT-proBNP (test code 209 pg/mL See_Comment H [Autom ated = 6047181051) message] The system which generated this result transmitted reference range : <=125. The reference range was not used to interpret this result as normal/abnormal . NU (test code = NU) Biotin has been reported to cause a negative bias, interpret results relative to patient's use of biotin. Lab Interpretation Abnormal (test code = 99786-8) [facility] GLUCOSE (AUTOMATED)2019-11-10 16:33:00 Test Item Value Reference Range Interpretation Comments POCT GLU (test code = 3982646839) 299 mg/dL 70-110 H Lab Interpretation (test code = Abnormal 71675-6) [facility] GLUCOSE (AUTOMATED)2019-11-10 13:00:00 Test Item Value Reference Range Interpretation Comments POCT GLU (test code = 7784009133) 351 mg/dL 70-110 H Lab Interpretation (test code = Abnormal 44432-0) [facility] CenterHEPATIC FUNCTION PANEL (29109) (ALB,T.PRO,BILI T,BU/BC,ALT,AST,ALK PHOS)2019-11-10 11:25:00 Test Item Value Reference Range Interpretation Comments TOTAL BILI (test code = 6671250691) 3.8 mg/dL 0.1-1.1 H BILI UNCON (test code = 6895682961) 2.9 mg/dL 0.1-1.1 H BILI CONJ (test code = 9027256116) 0.2 mg/dL 0-0.3 T PROTEIN (test code = 1380383633) 7.5 g/dL 6.3-8.2 ALBUMIN (test code = 3391544380) 3.7 g/dL 3.5-5 ALK PHOS (test code = 8625503918) 128 U/L 34-122 H ALTv (test code = 1742-6) 36 U/L 5-35 H AST(SGOT) (test code = 8912311542) 61 U/L 13-40 H Lab Interpretation (test code = Abnormal 93814-7) [facility] CenterLamiic Acid Whole [id number] 10:41:00 Test Item Value Reference Range Interpretation Comments LACTIC ACID (test code = 2.41 mmol/L 0.5-2.2 H 2537624663) Lab Interpretation (test code = Abnormal 38440-0) [facility] Center[facility])2019-11-10 09:26:00 Test Item Value Reference Range Interpretation Comments POCT GLU (test code = 7330578156) 371 mg/dL 70-110 H Lab Interpretation (test code = Abnormal 80090-5) [facility] CenterGlycosylated Hemoglobin (A1C)2019-11-10 08:42:00 Test Item Value Reference Interpretation Comments Range HGB A1C (test code = See_Comment H [Autom ated 4548-4) message] The system which generated this result transmitted reference range : 4.0 - 6.0 % NGSP. The reference range was not used to interpret this result as normal/abnormal . NU (test code = %A1C (NGSP) NU) Interpretation (ADA)4.8-5.6 ? ? Normal or (Non-Diabetic Range)5.7-6.4 ? ? Increased Risk (Pre-Diabetic)>6.5 ?Diabetes Indicated Lab Interpretation Abnormal (test code = 12912-5) [facility] WITH [id number] 07:08:00 Test Item Value Reference Range Interpretation Comments WBC (test code = See_Comment H [Automated 8490-2) message] The sy stem which generated this result transmitted reference range : 4.30 - 11.10 10*3/?L. The reference range was not used to interpret this result as normal/abnormal . RBC (test code = See_Comment [Automated 469-8) message] The sy stem which generated this result transmitted reference range : 3.93 - 5.25 10*6/?L. The reference range was not used to interpret this result as normal/abnormal . HGB (test code = 12.6 g/dL 11.6-15 718-7) HCT (test code = 38.9 % 35.7-45.2 4544-3) MCV (test code = 93.7 fL 80.6-95.5 787-2) MCH (test code = 30.4 pg 25.9-32.8 785-6) MCHC (test code = 32.4 g/dL 31.6-35.1 786-4) RDW-SD (test code = 53.3 fL 39-49.9 H 37007-2) RDW-CV (test code = 15.7 % 12-15.5 H 788-0) PLT (test code = See_Comment L [Automated 777-3) message] The sy stem which generated this result transmitted reference range : 166 - 358 10*3/ ?L. The reference r pardeep was not used to interpret this result as normal/abnormal . MPV (test code = 9.7 fL 9.5-12.9 88520-0) IPF % (test code = 3.2 % 1.3-7.7 Platelet count 1139870529) measured by fluorescence method. NRBC/100 WBC (test See_Comment [Automat ed code = 3314367567) message] The system which generated this result transmitted reference range : 0.0 - 10.0 /100 WBCs. The refer ence range was not u sed to interpret th is result as normal/abnormal . NRBC x10^3 (test code <0.01 See_Comment [Auto mated = 7760039918) message] The s ystem which generated this result transmitted reference range : 10*3/?L. The reference range was not used to interpret this result as normal/abnormal . GRAN MAT (NEUT) % 89.8 % (test code = 770-8) IMM GRAN % (test code 0.60 % = 6186039601) LYMPH % (test code = 6.1 % 736-9) MONO % (test code = 3.3 % 5905-5) EOS % (test code = 0.0 % 713-8) BASO % (test code = 0.2 % 706-2) GRAN MAT x10^3(ANC) 12.10 10*3/uL 1.88-7.09 H (test code = 8199487025) IMM GRAN x10^3 (test 0.08 10*3/uL 0-0.06 H code = 0615986656) LYMPH x10^3 (test 0.82 10*3/uL 1.32-3.29 L code = 731-0) MONO x10^3 (test code 0.44 10*3/uL 0.33-0.92 = 742-7) EOS x10^3 (test code <0.03 0.03-0.39 L = 711-2) BASO x10^3 (test code 0.03 10*3/uL 0.01-0.07 = 704-7) PLT ESTIMATE (test Decreased Normal A code = 9317-9) Lab Interpretation Abnormal (test code = 24125-0) [facility] Metabolic Panel (NA, K, CL, CO2, GLUCOSE, BUN, CREATININE, CA)2019-11-10 06:43:00 Test Item Value Reference Range Interpretation Comments NA (test code = 139 mmol/L 135-145 1474487013) K (test code = 4.7 mmol/L 3.5-5 1960648834) CL (test code = 107 mmol/L 98-108 2240300192) CO2 TOTAL (test code = 19 mmol/L 23-31 L 9343985915) AGAP (test code = 2-16 3165966019) BUN (test code = 22 mg/dL 7-23 4224400019) GLUCOSE (test code = 344 mg/dL 70-110 H 4928681554) CREATININE (test code = 0.79 mg/dL 0.5-1.04 0371097598) CALCIUM (test code = 8.3 mg/dL 8.6-10.6 L 1569407288) eGFR Calculation mL/min/1.73m2 (Non-) (test code = 5365857055) eGFR Calculation mL/min/1.73m2 () (test code = 5815314090) NU (test code = NU) Association of Glomerular Filtration Rate (GFR) and Staging of Kidney Disease* + --+ --+ ------+| GFR (mL/min/1.73 m2) ?| With Kidney Damage ?| ?Without Kidney Damage+ --------+ --------+ +| ?>90 ?| ?Stage one ?| ? Normal ?+ ---+ ---+ -------+| ?60-89 ?| ?Stage two ?| ? Decreased GFR ? + --+ --+ ------+| ?30-59 ?| ?Stage three ?| ? Stage three ? + --+ --+ ------+| ?15-29 ?| ?Stage four ? | ? Stage four ?+ ---+ ---+ -------+| ?<15 (or dialysis) ? ?| ?Stage five ? | ? Stage five ?+ ---+ ---+ -------+ *Each stage assumes the associated GFR level has been in effect for at least three months. ?Stages 1 to 5, with or without kidney disease, indicate chronic kidney disease. Notes: Determination of stages one and two (with eGFR >59mL/min/1.73 m2) requires estimation of kidney damage for at least three months as defined by structural or functional abnormalities of the kidney, manifested by either:Pathological abnormalities or Markers of kidney damage (including abnormalities in the composition of the blood or urine or abnormalities in imaging tests). Lab Interpretation Abnormal (test code = 87428-5) [facility] CenterL[facility] Acid Whole [id number] 06:17:00 Test Item Value Reference Range Interpretation Comments LACTIC ACID (test code = 3.22 mmol/L 0.5-2.2 H 0416957866) Lab Interpretation (test code = Abnormal 39185-0) [facility] CenterPO[facility])2019-11-10 04:13:00 Test Item Value Reference Range Interpretation Comments POCT GLU (test code = 7381518854) 350 mg/dL 70-110 H Lab Interpretation (test code = Abnormal 28202-6) [facility] CenterXR CHEST 1 [id number] 03:01:54 No acute intrathoracic abnormality. Preliminary Report Dictated by Resident: Yousuf Moy MD., have reviewed this study and agree with the abovereport.XR CHEST 1 VW Comparison: Chest x-ray 07/31/2019 History: fever Findings: The lungs are clear. No focal consolidation. No pleural effusion orpneumothorax is identified. The heart is normal in size. No acute osseous abnormality. Multiple surgical sly overlie the thorax. [facility], Radiant Results Inft User - 11/09/2019 10:02 PM CDTXRCHEST 1 VWComparison: Chest x-ray 07/31/2019History: fever Findings:The lungs are clear. No focal consolidation. No pleural effusion orpneumothorax is identified.The heart is normal in size.No acute osseous abnormality. Multiple surgical sly overlie the thorax.IMPRESSIONNo acute intrathoracic abnormality.Preliminary Report Dictated by Resident: Yousuf Lima MD., have reviewed this study and agree with the abovereport.[facility] (NA, K, CL, CO2, GLUCOSE, BUN, CREATININE, CA)2019-11-10 02:22:00 Test Item Value Reference Range Interpretation Comments NA (test code = 137 mmol/L 135-145 1214047461) K (test code = 5.3 mmol/L 3.5-5 H 8471946481) CL (test code = 105 mmol/L 98-108 7251348187) CO2 TOTAL (test code = 22 mmol/L 23-31 L 3842206170) AGAP (test code = 2-16 8585210963) BUN (test code = 24 mg/dL 7-23 H 9633175066) GLUCOSE (test code = 339 mg/dL 70-110 H 6309609509) CREATININE (test code = 0.79 mg/dL 0.5-1.04 3006881772) CALCIUM (test code = 8.1 mg/dL 8.6-10.6 L 9421487709) eGFR Calculation mL/min/1.73m2 (Non-) (test code = 6902344545) eGFR Calculation mL/min/1.73m2 () (test code = 5130480246) NU (test code = NU) Association of Glomerular Filtration Rate (GFR) and Staging of Kidney Disease* + --+ --+ ------+| GFR (mL/min/1.73 m2) ?| With Kidney Damage ?| ?Without Kidney Damage+ --------+ --------+ +| ?>90 ?| ?Stage one ?| ? Normal ?+ ---+ ---+ -------+| ?60-89 ?| ?Stage two ?| ? Decreased GFR ? + --+ --+ ------+| ?30-59 ?| ?Stage three ?| ? Stage three ? + --+ --+ ------+| ?15-29 ?| ?Stage four ? | ? Stage four ?+ ---+ ---+ -------+| ?<15 (or dialysis) ? ?| ?Stage five ? | ? Stage five ?+ ---+ ---+ -------+ *Each stage assumes the associated GFR level has been in effect for at least three months. ?Stages 1 to 5, with or without kidney disease, indicate chronic kidney disease. Notes: Determination of stages one and two (with eGFR >59mL/min/1.73 m2) requires estimation of kidney damage for at least three months as defined by structural or functional abnormalities of the kidney, manifested by either:Pathological abnormalities or Markers of kidney damage (including abnormalities in the composition of the blood or urine or abnormalities in imaging tests). Lab Interpretation Abnormal (test code = 69551-7) [facility] CenterCT ABDOMEN PELVIS W [id number] 02:16:57 1. Dilated small bowel loops in the upper abdomen with loops of jejunummeasuring up to 2.4 cm representing partial small bowel obstruction.Transition point is seen in the central abdomen on 2:63 with d istallycollapsed loops of jejunum. No evidence of ischemia. 2. Cirrhotic liver morphology with 4.5 cm hypodense segment lesionmeasuring 47 Hounsfield units concerning for malignancy. Recommend GIconsultation and correlation with prior imaging studies and/or follow-uptriple phase abdominal CT. 3. Moderate portal hypertension including splenomegaly, dilated main portalvein, small gastroesophageal varices and portal colopathy. 4. Diffuse thickening of the large bowel could represent infectious orinflammatory colitis Findings relayed to Dr. Merida at time of dictation. Preliminary Report Dictated by Resident: Yousuf Murillo MD., have reviewed this study and agree with the abovereport.CT ABDOMEN AND PELVIS WITH CONTRAST HISTORY: Abd pain, acute, generalized, with fever COMPARISON: None. TECHNIQUE: Contiguous axial imaging from the level of the lung basesthrough the pubic symphysis was performed after the administration of 120cc of intravenous Omnipaque contrast. Coronal and sa gittal reconstructionswere obtained. FINDINGS: LOWER THORAX: Scattered calcified granulomas are seenin the lung bases. Nopleural effusion is present. No cardiomegaly. LIVER: The liver is enlarged measuring nearly 20 cm in craniocaudaldimension with heterogenous parenchyma and micronodular contour, con sistentwith cirrhosis. A 4.5 cm lobulated hypodense lesion in segment [id number] Hounsfield units, indeterminate. Scattered subcentimeter calcificationsare seen. GALLBLADDER: Prior cholecystectomy. Mild central intrahepatic biliaryductal dilation and prominence of the distal common bile duct at 7 mmlikely representing reservoir phenomenon from prior cholecystectomy. SPLEEN: Splenomegaly up to 16 cm in craniocaudal dimension. PANCREAS: No ductal dilation or masses. Somewhat atrophic pancreas. ADRENAL GLANDS: No adrenal nodules. KIDNEYS: No hydronephrosis, stones, or solid masses. 3.0 cm simple cyst atthe right midpole. Subcentimeter cortical hypodensities bilaterally are toosmall to characterize. No obstructive nephrolithiasis. No hydronephrosis. PERITONEUM AND RETROPERITONEUM: No free air. Small volume of abdominalascites in the right subdiaphragmatic space and in the right paracolicgutter. Diffuse ill- defined mesenteric stranding in the upper abdomenaround the mesenteric root vessels and large bowel is nonspecific, butlikely related to underlying liver disease. LYMPH NODES: Mildly enlargedporta hepatis lymph nodes measuring up to 1.2cm, likely reactive to liver disease. GI TRACT: Small sliding hiatal hernia. The stomach is distended with gasand layering ingested fluid material. Dilated s mall bowel loops in theupper abdomen with loops of jejunum measuring up to 2.4 cm with transitionpoint on 2:63 in the central abdomen with collapsed loops of distaljejunum. Fecalization of small bowel suggesting delayed GI transit. Largebowel wall thickening and decreased enhancement with surroundingpericolonic stranding consistent presenting portal colopathy. Thedescending and rectosigmoid colon arenormally enhancing. Status postappendectomy. PELVIS: The urinary bladder is underdistended. Prior hysterectomy VESSELS: Dilated main portal vein measuring 1.5 cm. Tiny gastroesophagealcollateral vessels. Conventional hepatic arterial anatomy. The mesentericroot vessels are patent. BONES AND SOFT TISSUES: No aggressive or suspicious osseous lesions.Diastasis recti and postsurgical changes in the anterior abdominal wallwithout competition. [facility], Radiant Results Inft User - 11/09/2019 9:18 PM CDTCT ABDOMEN AND PELVIS WITH CONTRASTHISTORY: Abd pain, acute, generalized, with fever COMPARISON: None.TECHNIQUE: Contiguous axial imaging from the level of the lung basesthrough the pubic symphysis was performed after the administration of 120cc of intravenous Omnipaque contrast. Coronal and sagittal reconstructionswere obtained.FINDINGS:LOWER THORAX: Scattered calcified granulomas are seen in the lung bases. Nopleural effusion is present. No cardiomegaly.LIVER: The liver is enlarged measuring nearly 20 cm in craniocaudaldimension with heterogenous parenchyma and micronodular contour, consistentwith cirrhosis. A 4.5 cm lobulated hypodense lesion in segment Hounsfield units, indeterminate. Scattered subcentimeter calcificationsare seen.GALLBLADDER: Prior cholecystectomy. Mild central intrah epatic biliaryductal dilation and prominence of the distal common bile duct at 7 mmlikely representing reservoir phenomenon from prior cholecystectomy.SPLEEN: Splenomegaly up to 16 cm in craniocaudal dimension.PANCREAS: No ductal dilation or masses. Somewhat atrophic pancreas.ADRENAL GLANDS: No adrenal nodules.KIDNEYS: No hydronephrosis, stones, or solid masses. 3.0 cm simple cyst atthe right midpole. Subcentimeter cortical hypodensities bilaterally are toosmall to characterize. No obstructive nephrolithiasis. No hydronephrosis.PERITONEUM AND RETROPERITONEUM: No free air. Small volume of abdominalascites in the right subdiaphragmatic space and in the right paracolicgutter. Diffuse ill-defined mesenteric stranding in the upper abdomenaround the mesenteric root vessels and large bowel is nonspecific, butlikely related to underlying liver disease.LYMPH NODES: Mildly enlarged gurwinder hepatis lymph nodes measuring up to 1.2cm, likely reactive to liver disease.GI TRACT: Small sliding hiatal hernia. Thestomach is distended with gasand layering ingested fluid material. Dilated small bowel loops in theupper abdomen with loops of jejunum measuring up to 2.4 cm with transitionpoint on 2:63 in the centralabdomen with collapsed loops of distaljejunum. Fecalization of small bowel suggesting delayed GI transit. Largebowel wall thickening and decreased enhancement with surroundingpericolonic stranding consistent presenting portal colopathy. Thedescending and rectosigmoid colon are normally enhancing. Status postappendectomy.PELVIS: The urinary bladder is underdistended. Prior hysterectomyVESSELS: Dilatedmain portal vein measuring 1.5 cm. Tiny gastroesophagealcollateral vessels. Conventional hepatic arterial anatomy. The mesentericroot vessels are patent.BONES AND SOFT TISSUES: No aggressive or suspicious osseous lesions.Diastasis recti and postsurgical changes in the anterior abdominal wallwithout competition.IMPRESSION1. Dilated small bowel loops in the upper abdomen with loops of jejunummeasuring up to 2.4 cm representing partial small bowel obstruction.Transition point is seen in the central abdomen on 2:63 with distallycollapsed loops of jejunum. No evidence of ischemia.2. Cirrhotic liver morphology with 4.5 cm hypodense segment lesionmeasuring 47 Hounsfield units concerning for malignancy. Recommend GIconsultation and correlation with prior imaging studies and/or follow-uptriple phase abdominal CT. 3. Moderate portal hypertension including splenomegaly, dilated main portalvein, small gastroesophageal varices and portal colopathy.4. Diffuse thickening of the large bowel could represent infectious orinflammatory colitisFindings relayed to Dr. Merida at time of dictation.Preliminary Report Dictated by Resident: Yousuf Ochoa MD., have reviewed this study and agree with the abovereport.[facility] CenterLactic Acid Whole [id number] 02:10:00 Test Item Value Reference Range Interpretation Comments LACTIC ACID (test code = 4.56 mmol/L 0.3-2.6 7970446753) [facility] CenterURINALYSIS2020-04-29 01:05:00 Test Item Value Reference Range Interpretation Comments APPEARANCE (test code = Clear Clear 6354469956) COLOR (test code = Lolis Yellow A 5438354547) PH (test code = 4.8-8.0 6047988428) SP GRAVITY (test code = 1.003-1.030 3745474772) GLU U QUAL (test code = 500 mg/dL Normal A 2709850089) BLOOD (test code = Negative Negative 5277487521) KETONES (test code = 5 mg/dL Negative A 2680746767) PROTEIN (test code = Negative Negative 2887-8) UROBILIN (test code = 4.0 mg/dL Normal A 6029532126) BILIRUBIN (test code = Negative Negative 6871252005) NITRITE (test code = Negative Negative 9366812680) LEUK GUADALUPE (test code = Negative Negative 8359850521) RBC/HPF (test code = See_Comment [Autom ated message] 5688760926) The system [employer] generated this result transmit thong reference range : 0 - 3 HPF. The refe rence range was not u sed to interpret th is result as normal/abnormal . WBC/HPF (test code = <1 See_Comment [Autom ated message] 8002267415) The system [employer] generated this result transmit thong reference range : 0 - 5 HPF. The refe rence range was not u sed to interpret th is result as normal/abnormal . BACTERIA (test code = Moderate Negative A 5071031020) MUCOUS (test code = Slight Negative LPF A 4014259014) SQ EPITH (test code = HPF 5621626066) HYAL CAST (test code = See_Comment H [Aut omated message] 4054131670) The system [employer] generated this result transmit thong reference range : <=2 LPF. The refere nce range was not u sed to interpret th is result as normal/abnormal . Lab Interpretation (test Abnormal code = 70088-2) [facility] CenterType and Screen - ONCE [id number] 01:03:27 Test Item Value Reference Range Interpretation Comments ABO & RH (test code A Positive Performe d at [facility] = 20) Laboratory Serv [facility] [address] [place] [address] Free: [phone] A No. [id number] IAT (test code = Negative Performed a t [facility] 1185) Laboratory [facility] [address] [place] [address]Toll Free: [phone] A No. [id number] [facility] CenteraPTT2020-04-29 00:26:00 Test Item Value Reference Range Interpretation Comments APTT Patient (test See_Comment [Automat ed code = 3173-2) message] The system which generated this result transmitted reference range : 23 - 38 Seconds . The reference range was not used to interpr et this result as normal/abnormal . NU (test code = NU) The [facility] patient population mean normal value for aPTT is 30 seconds. Lab Interpretation Normal (test code = 20524-0) [facility] CenterPROTHROMBIN TIME / [id number] 00:24:00 Test Item Value Reference Range Interpretation Comments PROTIME PATIENT (test See_Comment [Auto mated message] code = 5964-2) The system wh ich generated this result transmitted ref erence range: 12.0 - 1 4.7 Seconds. The re ference range was not u sed to interpret this result as normal/abnor mal. INR (test code = 6301-6) Nor mal INR <1.1; Warfarin Therap eutic range 2.0 to 3. 0 or 2.5 to 3.5, dep ending upon the indica tions. Lab Interpretation (test Normal code = 12835-2) [facility] CenterCORONAVIRUS COVID-19 [id number] 00:15:00 Test Item Value Reference Range Interpretation Comments SARS-CoV-2 (test code = Not Detected Not Detected 16760-5) NU (test code = NU) ID NOW COVID-19 Assay is an isothermal nucleic acid amplification test intended for the qualitative detection of nucleic acid from SARS-CoV-2 viral RNA in nasopharyngeal (REWIND OPERATOR) specimens. It is used under Emergency Use Authorization (EUA) by FDA. The limit of detection (LOD) of the assay is 125 Genome Equivalents/mL. A positive result is indicative of the presence of SARS-CoV-2 RNA. ?Clinical correlation with patient history and other diagnostic information is necessary to determine patient infection status. A negative (Not Detected) result does not preclude SARS-CoV-2 infection. Clinical correlation with patient history and other diagnostic information should be used in patient management decisions. Invalid: Please collect a new specimen for repeat patient testing if clinically indicated. Lab Interpretation Normal (test code = 85822-3) [facility] CenterCBC WITH [id number] 23:58:00 Test Item Value Reference Range Interpretation Comments WBC (test code = See_Comment H [Automated 6690-2) message] The sy stem which generated this result transmitted reference range : 4.30 - 11.10 10*3/?L. The reference range was not used to interpret this result as normal/abnormal . RBC (test code = See_Comment [Automated 789-8) message] The sy stem which generated this result transmitted reference range : 3.93 - 5.25 10*6/?L. The reference range was not used to interpret this result as normal/abnormal . HGB (test code = 14.4 g/dL 11.6-15 718-7) HCT (test code = 43.2 % 35.7-45.2 4544-3) MCV (test code = 91.7 fL 80.6-95.5 787-2) MCH (test code = 30.6 pg 25.9-32.8 785-6) MCHC (test code = 33.3 g/dL 31.6-35.1 786-4) RDW-SD (test code = 50.8 fL 39-49.9 H 73100-7) RDW-CV (test code = 15.3 % 12-15.5 788-0) PLT (test code = See_Comment L [Automated 777-3) message] The sy stem which generated this result transmitted reference range : 166 - 358 10*3/ ?L. The reference r pardeep was not used to interpret this result as normal/abnormal . MPV (test code = 10.4 fL 9.5-12.9 41503-6) IPF % (test code = 3.4 % 1.3-7.7 Platelet count 6048533008) measured by fluorescence method. NRBC/100 WBC (test See_Comment [Automat ed code = 7496981362) message] The system which generated this result transmitted reference range : 0.0 - 10.0 /100 WBCs. The refer ence range was not u sed to interpret th is result as normal/abnormal . NRBC x10^3 (test code <0.01 See_Comment [Auto mated = 0247070987) message] The s ystem which generated this result transmitted reference range : 10*3/?L. The reference range was not used to interpret this result as normal/abnormal . GRAN MAT (NEUT) % 92.2 % (test code = 770-8) IMM GRAN % (test code 0.80 % = 2140791438) LYMPH % (test code = 3.6 % 736-9) MONO % (test code = 3.2 % 5905-5) EOS % (test code = 0.0 % 713-8) BASO % (test code = 0.2 % 706-2) GRAN MAT x10^3(ANC) 18.80 10*3/uL 1.88-7.09 H (test code = 4088418077) IMM GRAN x10^3 (test 0.16 10*3/uL 0-0.06 H code = 2929945332) LYMPH x10^3 (test 0.73 10*3/uL 1.32-3.29 L code = 731-0) MONO x10^3 (test code 0.65 10*3/uL 0.33-0.92 = 742-7) EOS x10^3 (test code <0.03 0.03-0.39 L = 711-2) BASO x10^3 (test code 0.05 10*3/uL 0.01-0.07 = 704-7) Lab Interpretation Abnormal (test code = 88872-3) [facility]. METABOLIC PANEL (04151)2019-11-09 23:47:00 Test Item Value Reference Range Interpretation Comments NA (test code = 138 mmol/L 135-145 0018176079) K (test code = 5.8 mmol/L 3.5-5 H 0872615474) CL (test code = 101 mmol/L 98-108 1147664887) CO2 TOTAL (test code = 28 mmol/L 23-31 8872930618) AGAP (test code = 2-16 4581563771) BUN (test code = 27 mg/dL 7-23 H 4525883462) GLUCOSE (test code = 358 mg/dL 70-110 H 8674202644) CREATININE (test code = 0.92 mg/dL 0.5-1.04 9413716291) TOTAL BILI (test code = 3.3 mg/dL 0.1-1.1 H 5563780135) CALCIUM (test code = 9.2 mg/dL 8.6-10.6 2584185549) T PROTEIN (test code = 8.6 g/dL 6.3-8.2 H 2705450867) ALBUMIN (test code = 4.4 g/dL 3.5-5 2155260177) ALK PHOS (test code = 161 U/L 34-122 H 1730225318) ALTv (test code = 43 U/L 5-35 H 1742-6) AST(SGOT) (test code = 82 U/L 13-40 H 0158821591) eGFR Calculation mL/min/1.73m2 (Non-) (test code = 0326975666) eGFR Calculation mL/min/1.73m2 () (test code = 5615721192) NU (test code = NU) Association of Glomerular Filtration Rate (GFR) and Staging of Kidney Disease* + --+ --+ ------+| GFR (mL/min/1.73 m2) ?| With Kidney Damage ?| ?Without Kidney Damage+ --------+ --------+ +| ?>90 ?| ?Stage one ?| ? Normal ?+ ---+ ---+ -------+| ?60-89 ?| ?Stage two ?| ? Decreased GFR ? + --+ --+ ------+| ?30-59 ?| ?Stage three ?| ? Stage three ? + --+ --+ ------+| ?15-29 ?| ?Stage four ? | ? Stage four ?+ ---+ ---+ -------+| ?<15 (or dialysis) ? ?| ?Stage five ? | ? Stage five ?+ ---+ ---+ -------+ *Each stage assumes the associated GFR level has been in effect for at least three months. ?Stages 1 to 5, with or without kidney disease, indicate chronic kidney disease. Notes: Determination of stages one and two (with eGFR >59mL/min/1.73 m2) requires estimation of kidney damage for at least three months as defined by structural or functional abnormalities of the kidney, manifested by either:Pathological abnormalities or Markers of kidney damage (including abnormalities in the composition of the blood or urine or abnormalities in imaging tests). Lab Interpretation Abnormal (test code = 04208-1) [facility] CenterLIPASE2020-04-28 23:47:00 Test Item Value Reference Range Interpretation Comments LIPASE (test code = 9717377008) 120 U/L 0-220 Lab Interpretation (test code = Normal 10221-5) [facility] CenterLactic Acid Whole [id number] 23:24:00 Test Item Value Reference Range Interpretation Comments LACTIC ACID (test code = 3.95 mmol/L 0.3-2.6 6615819054) [facility] CenterALPHA [id number] 22:56:00 Test Item Value Reference Range Interpretation Comments AFP (test code = 12.3 ng/mL See_Comment H [Automated 1816551182) message] The system which generated this result transmitted reference range : <=7.5. The reference range was not used to interpret this result as normal/abnormal . NU (test code = NU) Biotin has been reported to cause a negative bias, interpret results relative to patient's use of biotin. Lab Interpretation Abnormal (test code = 71031-7) [facility] CenterTOTAL IRON BINDING [id number] 21:33:00 Test Item Value Reference Range Interpretation Comments TIBC (test code = 0268121018) 390 ug/dL 250-410 Lab Interpretation (test code = Normal 13208-4) [facility] CenterHEPATIC FUNCTION PANEL (87056) (ALB,T.PRO,BILI T,BU/BC,ALT,AST,ALK PHOS)2019-10-07 21:24:00 Test Item Value Reference Range Interpretation Comments TOTAL BILI (test code = 3859161324) 1.0 mg/dL 0.1-1.1 BILI UNCON (test code = 5789995389) 0.9 mg/dL 0.1-1.1 BILI CONJ (test code = 1944672371) 0.0 mg/dL 0-0.3 T PROTEIN (test code = 1887251737) 7.6 g/dL 6.3-8.2 ALBUMIN (test code = 6329458753) 3.9 g/dL 3.5-5 ALK PHOS (test code = 3292546174) 141 U/L 34-122 H ALTv (test code = 1742-6) 41 U/L 5-35 H AST(SGOT) (test code = 8874493096) 56 U/L 13-40 H Lab Interpretation (test code = Abnormal 40253-0) [facility] CenterBASI METABOLIC PANEL (NA, K, CL, CO2, GLUCOSE, BUN, CREATININE, CA)2019-10-07 21:24:00 Test Item Value Reference Range Interpretation Comments NA (test code = 136 mmol/L 135-145 6477184247) K (test code = 4.3 mmol/L 3.5-5 6119125400) CL (test code = 100 mmol/L 98-108 6081042643) CO2 TOTAL (test code = 26 mmol/L 23-31 9723193220) AGAP (test code = 2-16 0188763370) BUN (test code = 19 mg/dL 7-23 7165388559) GLUCOSE (test code = 239 mg/dL 70-110 H 1283672545) CREATININE (test code = 1.09 mg/dL 0.5-1.04 H 7536221855) CALCIUM (test code = 9.6 mg/dL 8.6-10.6 3773959916) eGFR Calculation mL/min/1.73m2 (Non-) (test code = 0039447876) eGFR Calculation mL/min/1.73m2 () (test code = 4189493228) NU (test code = NU) Association of Glomerular Filtration Rate (GFR) and Staging of Kidney Disease* + --+ --+ ------+| GFR (mL/min/1.73 m2) ?| With Kidney Damage ?| ?Without Kidney Damage+ --------+ --------+ +| ?>90 ?| ?Stage one ?| ? Normal ?+ ---+ ---+ -------+| ?60-89 ?| ?Stage two ?| ? Decreased GFR ? + --+ --+ ------+| ?30-59 ?| ?Stage three ?| ? Stage three ? + --+ --+ ------+| ?15-29 ?| ?Stage four ? | ? Stage four ?+ ---+ ---+ -------+| ?<15 (or dialysis) ? ?| ?Stage five ? | ? Stage five ?+ ---+ ---+ -------+ *Each stage assumes the associated GFR level has been in effect for at least three months. ?Stages 1 to 5, with or without kidney disease, indicate chronic kidney disease. Notes: Determination of stages one and two (with eGFR >59mL/min/1.73 m2) requires estimation of kidney damage for at least three months as defined by structural or functional abnormalities of the kidney, manifested by either:Pathological abnormalities or Markers of kidney damage (including abnormalities in the composition of the blood or urine or abnormalities in imaging tests). Lab Interpretation Abnormal (test code = 99097-3) [facility] WITH [id number] 20:18:00 Test Item Value Reference Range Interpretation Comments WBC (test code = See_Comment [Automated 8590-2) message] The sy stem which generated this result transmitted reference range : 4.30 - 11.10 10*3/?L. The reference range was not used to interpret this result as normal/abnormal . RBC (test code = See_Comment [Automated 789-8) message] The sy stem which generated this result transmitted reference range : 3.93 - 5.25 10*6/?L. The reference range was not used to interpret this result as normal/abnormal . HGB (test code = 12.8 g/dL 11.6-15 718-7) HCT (test code = 38.0 % 35.7-45.2 4544-3) MCV (test code = 89.8 fL 80.6-95.5 787-2) MCH (test code = 30.3 pg 25.9-32.8 785-6) MCHC (test code = 33.7 g/dL 31.6-35.1 786-4) RDW-SD (test code = 48.0 fL 39-49.9 94195-6) RDW-CV (test code = 14.8 % 12-15.5 788-0) PLT (test code = See_Comment L [Automated 777-3) message] The sy stem which generated this result transmitted reference range : 166 - 358 10*3/ ?L. The reference r pardeep was not used to interpret this result as normal/abnormal . MPV (test code = 10.2 fL 9.5-12.9 24605-9) IPF % (test code = 2.9 % 1.3-7.7 Platelet count 4268113589) measured by fluorescence method. NRBC/100 WBC (test See_Comment [Automat ed code = 0988089513) message] The system which generated this result transmitted reference range : 0.0 - 10.0 /100 WBCs. The refer ence range was not u sed to interpret th is result as normal/abnormal . NRBC x10^3 (test code <0.01 See_Comment [Auto mated = 0257399627) message] The s ystem which generated this result transmitted reference range : 10*3/?L. The reference range was not used to interpret this result as normal/abnormal . GRAN MAT (NEUT) % 73.3 % (test code = 770-8) IMM GRAN % (test code 0.50 % = 1688702447) LYMPH % (test code = 18.6 % 736-9) MONO % (test code = 5.8 % 5905-5) EOS % (test code = 1.4 % 713-8) BASO % (test code = 0.4 % 706-2) GRAN MAT x10^3(ANC) 4.14 10*3/uL 1.88-7.09 (test code = 6829952161) IMM GRAN x10^3 (test 0.03 10*3/uL 0-0.06 code = 1328173090) LYMPH x10^3 (test code 1.05 10*3/uL 1.32-3.29 L = 731-0) MONO x10^3 (test code 0.33 10*3/uL 0.33-0.92 = 742-7) EOS x10^3 (test code = 0.08 10*3/uL 0.03-0.39 711-2) BASO x10^3 (test code <0.03 0.01-0.07 = 704-7) Lab Interpretation Abnormal (test code = 40616-8) [facility] CenterPROTHROMBIN TIME / [id number] 20:07:00 Test Item Value Reference Range Interpretation Comments PROTIME PATIENT (test See_Comment [Auto mated message] code = 5964-2) The system ich generated this result transmitted ref erence range: 12.0 - 1 4.7 Seconds. The re ference range was not u sed to interpret this result as normal/abnor mal. INR (test code = 6301-6) Nor mal INR <1.1; Warfarin Therap eutic range 2.0 to 3. 0 or 2.5 to 3.5, dep ending upon the indica tions. Lab Interpretation (test Normal code = 26123-7) [facility] CenteraPTT2020-03-26 20:06:00 Test Item Value Reference Range Interpretation Comments APTT Patient (test See_Comment [Automat ed code = 3173-2) message] The system which generated this result transmitted reference range : 23 - 38 Seconds . The reference range was not used to interpr et this result as normal/abnormal . NU (test code = NU) The [facility] patient population mean normal value for aPTT is 30 seconds. Lab Interpretation Normal (test code = 78066-9) [facility] CenterXR ABDOMEN 2 [id number] 19:35:11HISTORY: Generalized abdominal pain and constipation. FINDINGS: 2 abdominal radiographs or obtaininga supine position. Smallamount of retained fecal material and air are detected throughout the largebowel. Cholecystectomy clips are seen in the right upper abdomen. Spleenappears to be enlarged. Mild lumbar dextroscoliosis is noted. No aggressivebone lesions. CONCLUSIONS: No acute findings. [facility], Radi ant Results Inft User - 10/07/2019 2:36 PM CDTHISTORY: Generalized abdominal pain and constipation.FINDINGS: 2 abdominal radiographs or obtaining a supine position. Smallamount of retained fecal material and air are detected throughout the largebowel. Cholecystectomy clips are seen in the right upperabdomen. Spleenappears to be enlarged. Mild lumbar dextroscoliosis is noted. No aggressivebone lesions.CONCLUSIONS: No acute findings.[facility] ABDOMEN [id number] 19:27:48HISTORY: Generalized abdominal pain and constipation. TECHNIQUE: Upper abdominal organs were evaluate d in multiple planes withthe patient in multiple different positions, without and with colorimaging.FINDINGS: Liver is 17.5 cm, spleen is 13.9 x 6.1 cm, right kidney is 10.7 x5.3 x 5.8 cm and left kidney is 10 x 4.5 x 4.2 cm in size. Cortex of bothkidneys is approximately 16 mm. Bosniak type II cystic lesion of 2.5 x 2.2cm size noted in the lateral interpolar region of right kidney. Liver showed heterogeneous coarse echotexture, calcified granulomas, atleast 2 5 to 6 mm hypoechoic lesions in the left lobe and one in the rightlobe. There is also one echogenic 8 mm lesion in the left lobe. No hydronephrosis, free fluid in the upper abdomen or aortic aneurysmdetected. Visualized portions of the pancreas appear normal. Hepatic andportal venous system appear patent, with hepatopetal portal flow noted. Gallbladder is remote. Common hepatic duct is 8.1 mm. CONCLUSIONS:1. Mild hepatosplenomegaly with coarse echotexture of the liver parenchymasuggestive of chronic primary liver disease. Calcified granulomas, smallhypoechoic lesions in the right lobe and left lobe and one echogenic lesionin the left lobe discussed above. For complete evaluation, CT scan or MRIliver without and with contrast includingdelayed venous imaging requested.2. S/P cholecystectomy. Slightly dilated common hepatic duct could besecondary to cholecystectomy. Intrahepatic bile ducts are not dilated.3. Bosniak type II right renal cystic lesion which may also be furtherevaluated by CT scan as well as monitored by follow up ultrasound study in6 months. [facility], Radiant Results Inft User - 10/07/2019 2:28 PM CDTHISTORY: Generalized abdominal pain and constipation.TECHNIQUE: Upper abdominal organs were evaluated in multiple planes withthe patient in multiple different positions, without and with colorimaging.FINDINGS: Liver is 17.5 cm, spleen is 13.9 x 6.1 cm, right kidney is 10.7 x5.3 x 5.8 cm and left kidney is 10 x 4.5 x 4.2cm in size. Cortex of bothkidneys is approximately 16 mm. Bosniak type II cystic lesion of 2.5 x 2.2cm size noted in the lateral interpolar region of right kidney.Liver showed heterogeneous coarse echotexture, calcified granulomas, atleast 2 5 to 6 mm hypoechoic lesions in the left lobe and one in therightlobe. There is also one echogenic 8 mm lesion in the left lobe.No hydronephrosis, free fluid inthe upper abdomen or aortic aneurysmdetected. Visualized portions of the pancreas appear normal. Hepatic andportal venous system appear patent, with hepatopetal portal flow noted. Gallbladder is remote. Common hepatic duct is 8.1 mm.CONCLUSIONS:1. Mild hepatosplenomegaly with coarse echotexture of theliver parenchymasuggestive of chronic primary liver disease. Calcified granulomas, smallhypoechoic lesions in the right lobe and left lobe and one echogenic lesionin the left lobe discussed above. For complete evaluation, CT scan or MRIliver without and with contrast including delayed venous imaging requested.2. S/P cholecystectomy. Slightly dilated common hepatic duct could besecondary to cholecystectomy. Intrahepatic bile ducts are not dilated.3. Bosniak type II right renal cystic lesion which mayalso be furtherevaluated by CT scan as well as monitored by follow up ultrasound study in6 months.[facility] CenterCORTISOL [id number] 20:14:00 Test Item Value Reference Range Interpretation Comments OLIVIER AM (test code = 6.4 ug/dL 4.5-23 6255416343) NU (test code = NU) Biotin has been reported to cause a positive bias, interpret results relative to patient's use of biotin. Lab Interpretation (test Normal code = 47988-4) [facility] CenterPROCALCITONIN2020-01-19 18:29:00 Test Item Value Reference Range Interpretation Comments Procalcitonin (test 0.20 ng/mL <0.07 H code = 4798940887) NU (test code = NU) INTERPRETATION OF PROCALCITONIN RESULTS IN ADULTS >= 18 YEARS OF AGE Initiation and discontinuation of antibiotics on patients with suspected or confirmed Lower Respiratory Tract Infection in Adults >= 18 years of age. + +-------- --------+ + -----+|Procalcitonin |Interpretation ?|Antibiotic ? ? |Considerations ? |ng/mL ? | ?|recommendation | ? + +-------- --------+ + -----+| <0.1 ? | Bacterial ? ? ?| Strongly ? ? ?| ? | ?| infection very | discouraged ? | Overruling: ? | ?| unlikely ? ? ? | ? | ? Clinically unstable ? ? ? + +-------- --------+ + ? High risk for adverse ? ? | <0.25 ?| Bacterial ? ? ?| Discouraged ? | ? outcome ? | ?| infection ? ? ?| ? | ? SEE IMPORTANT NOTE ?| ?| unlikely ? ? ? | ? | ? + +-------- --------+ + -----+| >=0.25 ? ? ? | Bacterial ? ? ?| Encouraged ? ?| ? | ?| infection ? ? ?| ? | ? | ?| likely ? | ? | Consider treatment failure ?+ +------- ---------+ -+ if levels does not decrease | >0.5 ? | Bacterial ? ? ?| Strongly ? ? ?| appropriately ? | ?| infection very | encouraged ? ?| ? | ?| likely ? | ? | ? + +-------- --------+ + -----+ Discontinuation of antibiotics in high-acuity patients with suspected or confirmed sepsis in Adults >= 18 years of age. + +-------- --------+ + -----+|Procalcitonin |Interpretation ?|Antibiotic ? ? |Considerations ? |ng/mL ? | ?|recommendation | ? + +-------- --------+ + -----+| <0.25 ?| Bacterial ? ? ?| Strongly ? ? ?| ? | ?| infection very | discouraged ? | Overruling: ? | ?| unlikely ? ? ? | ? | ? Clinically unstable ? ? ? + +-------- --------+ + ? High risk for adverse ? ? | <0.5 or drop | Bacterial ? ? ?| Discouraged ? | ? outcome ? | >80% from ? ?| infection ? ? ?| ? | ? SEE IMPORTANT NOTE ?| highest PCT ?| unlikely ? ? ? | ? | ? | level ?| ?| ? | ? + +-------- --------+ + -----+| >=0.5 ?| Bacterial ? ? ?| Encouraged ? ?| ? | ?| infection ? ? ?| ? | ? | ?| likely ? | ? | Consider treatment failure ?+ +------- ---------+ -+ if levels does not decrease | >1.0 ? | Bacterial ? ? ?| Strongly ? ? ?| appropriately ? | ?| infection very | encouraged ? ?| ? | ?| likely ? | ? | ? + +-------- --------+ + -----+ Percentage of drop of Procalcitonin calculation for Discontinuation of antibiotics in high-acuity patients with suspected or confirmed sepsis in Adults >= 18 years of age. ? Procalcitonin highest{}-Procalcitonin current{}Delta Procalcitonin = x100% ? Procalcitonin current {} IMPORTANT NOTE: Procalcitonin may be elevated without bacterial infection by physiologic stress related to trauma, warner, chronic dialysis, metastatic cancer, surgery in the past seven days, malaria, some fungal infections, and some forms of vasculitis. The interpretation algorithm may not apply to patients with immunosuppression (equivalent of >10 mg of prednisone daily), HIV with CD4 cell count < 350 cells/mm3, active malignancy on systemic chemotherapy, solid organ transplant or hematopoietic stem cell transplantation, or hospital acquired pneumonia. Additionally, some clinical trials of procalcitonin have excluded patients with shock requiring vasopressor use, acute respiratory failure requiring mechanical ventilation, or those with known lung abscess/empyema. For further information please refer to:[email or web address] Lab Interpretation Abnormal (test code = 69520-5) [facility] CenterBetahydroxy-[id number] 17:55:00 Test Item Value Reference Range Interpretation Comments BOH (test code = 0.1 mmol/L 5815719720) NU (test code = Normal Ranges: ? ? NU) Nonfasting ? Less than 0.1 mmol/L ? ? Overnight Fast ? ? ? Less than 0.4 mmol/L ? ? Fasting (1-2 weeks) ?6-8 mmol/L Test developed and characteristics determined by [facility] Laboratory Services. [facility] CenterOsmolality [id number] 17:29:00 Test Item Value Reference Range Interpretation Comments OSMOLALITY (test code = See_Comment [Au tomated message] 5293537224) The system [employer] generated this result transmitted ref erence range: 278 - 30 5 mOsm/kg. The re ference range was not u sed to interpret this result as normal/abnor mal. Lab Interpretation (test Normal code = 17027-7) [facility] GLUCOSE (AUTOMATED)2019-08-01 14:00:00 Test Item Value Reference Range Interpretation Comments POCT GLU (test code = 3306650902) 161 mg/dL 70-110 H Lab Interpretation (test code = Abnormal 30215-8) [facility] GLUCOSE (AUTOMATED)2019-08-01 11:45:00 Test Item Value Reference Range Interpretation Comments POCT GLU (test code = 7582740895) 105 mg/dL 70-110 Lab Interpretation (test code = Normal 66928-1) [facility] METABOLIC PANEL (NA, K, CL, CO2, GLUCOSE, BUN, CREATININE, CA)2019-08-01 10:48:00 Test Item Value Reference Range Interpretation Comments NA (test code = 137 mmol/L 135-145 6404750789) K (test code = 3.9 mmol/L 3.5-5 2903790761) CL (test code = 108 mmol/L 98-108 4600555399) CO2 TOTAL (test code = 23 mmol/L 23-31 9445645399) AGAP (test code = 2-16 2642313362) BUN (test code = 21 mg/dL 7-23 8653677064) GLUCOSE (test code = 119 mg/dL 70-110 H 2435231767) CREATININE (test code = 0.83 mg/dL 0.5-1.04 3322613376) CALCIUM (test code = 8.7 mg/dL 8.6-10.6 1333005572) eGFR Calculation mL/min/1.73m2 (Non-) (test code = 2891004580) eGFR Calculation mL/min/1.73m2 () (test code = 3061552530) NU (test code = NU) Association of Glomerular Filtration Rate (GFR) and Staging of Kidney Disease* + --+ --+ ------+| GFR (mL/min/1.73 m2) ?| With Kidney Damage ?| ?Without Kidney Damage+ --------+ --------+ +| ?>90 ?| ?Stage one ?| ? Normal ?+ ---+ ---+ -------+| ?60-89 ?| ?Stage two ?| ? Decreased GFR ? + --+ --+ ------+| ?30-59 ?| ?Stage three ?| ? Stage three ? + --+ --+ ------+| ?15-29 ?| ?Stage four ? | ? Stage four ?+ ---+ ---+ -------+| ?<15 (or dialysis) ? ?| ?Stage five ? | ? Stage five ?+ ---+ ---+ -------+ *Each stage assumes the associated GFR level has been in effect for at least three months. ?Stages 1 to 5, with or without kidney disease, indicate chronic kidney disease. Notes: Determination of stages one and two (with eGFR >59mL/min/1.73 m2) requires estimation of kidney damage for at least three months as defined by structural or functional abnormalities of the kidney, manifested by either:Pathological abnormalities or Markers of kidney damage (including abnormalities in the composition of the blood or urine or abnormalities in imaging tests). Lab Interpretation Abnormal (test code = 06273-3) [facility] GLUCOSE (AUTOMATED)2019-08-01 10:33:00 Test Item Value Reference Range Interpretation Comments POCT GLU (test code = 1952675508) 125 mg/dL 70-110 H Lab Interpretation (test code = Abnormal 74902-1) [facility] GLUCOSE (AUTOMATED)2019-08-01 09:28:00 Test Item Value Reference Range Interpretation Comments POCT GLU (test code = 4339701642) 130 mg/dL 70-110 H Lab Interpretation (test code = Abnormal 01905-5) [facility] - INFLUENZA A & B DIRECT [id number] 08:59:00 Test Item Value Reference Range Interpretation Comments Influenza A (test code = 56900-6) Negative Negative Influenza B (test code = 28528-2) Negative Negative Lab Interpretation (test code = Normal 42466-3) [facility] GLUCOSE (AUTOMATED)2019-08-01 08:34:00 Test Item Value Reference Range Interpretation Comments POCT GLU (test code = 2505716759) 127 mg/dL 70-110 H Lab Interpretation (test code = Abnormal 34042-7) [facility] GLUCOSE (AUTOMATED)2019-08-01 07:38:00 Test Item Value Reference Range Interpretation Comments POCT GLU (test code = 7022723398) 137 mg/dL 70-110 H Lab Interpretation (test code = Abnormal 22531-4) [facility] GLUCOSE (AUTOMATED)2019-08-01 06:26:00 Test Item Value Reference Range Interpretation Comments POCT GLU (test code = 2021192391) 151 mg/dL 70-110 H Lab Interpretation (test code = Abnormal 73975-3) [facility] METABOLIC PANEL (NA, K, CL, CO2, GLUCOSE, BUN, CREATININE, CA)2019-08-01 06:20:00 Test Item Value Reference Range Interpretation Comments NA (test code = 137 mmol/L 135-145 4905900617) K (test code = 4.6 mmol/L 3.5-5 4911129464) CL (test code = 105 mmol/L 98-108 9275850940) CO2 TOTAL (test code = 23 mmol/L 23-31 3001900279) AGAP (test code = 2-16 6196191036) BUN (test code = 19 mg/dL 7-23 4651859127) GLUCOSE (test code = 205 mg/dL 70-110 H 9994164087) CREATININE (test code = 0.62 mg/dL 0.5-1.04 0243175180) CALCIUM (test code = 9.7 mg/dL 8.6-10.6 1830037650) eGFR Calculation mL/min/1.73m2 (Non-) (test code = 9594661230) eGFR Calculation mL/min/1.73m2 () (test code = 8299686861) NU (test code = NU) Association of Glomerular Filtration Rate (GFR) and Staging of Kidney Disease* + --+ --+ ------+| GFR (mL/min/1.73 m2) ?| With Kidney Damage ?| ?Without Kidney Damage+ --------+ --------+ +| ?>90 ?| ?Stage one ?| ? Normal ?+ ---+ ---+ -------+| ?60-89 ?| ?Stage two ?| ? Decreased GFR ? + --+ --+ ------+| ?30-59 ?| ?Stage three ?| ? Stage three ? + --+ --+ ------+| ?15-29 ?| ?Stage four ? | ? Stage four ?+ ---+ ---+ -------+| ?<15 (or dialysis) ? ?| ?Stage five ? | ? Stage five ?+ ---+ ---+ -------+ *Each stage assumes the associated GFR level has been in effect for at least three months. ?Stages 1 to 5, with or without kidney disease, indicate chronic kidney disease. Notes: Determination of stages one and two (with eGFR >59mL/min/1.73 m2) requires estimation of kidney damage for at least three months as defined by structural or functional abnormalities of the kidney, manifested by either:Pathological abnormalities or Markers of kidney damage (including abnormalities in the composition of the blood or urine or abnormalities in imaging tests). Lab Interpretation Abnormal (test code = 63375-5) [facility] CenterAMMHASLET, [id number] 06:14:00 Test Item Value Reference Range Interpretation Comments AMMONIA (test code = 7025933639) 20 umol/L 9-33 Lab Interpretation (test code = Normal 81252-8) [facility] GLUCOSE (AUTOMATED)2019-08-01 05:33:00 Test Item Value Reference Range Interpretation Comments POCT GLU (test code = 8278984522) 170 mg/dL 70-110 H Lab Interpretation (test code = Abnormal 76201-6) [facility] GLUCOSE (AUTOMATED)2019-08-01 04:35:00 Test Item Value Reference Range Interpretation Comments POCT GLU (test code = 2683039219) 339 mg/dL 70-110 H Lab Interpretation (test code = Abnormal 93099-7) [facility] CenterTHYROID STIMULATING [id number] 04:31:00 Test Item Value Reference Range Interpretation Comments TSH (test code = See_Comment H [Automated message] 0306251151) The system [employer] generated this result transmitted ref erence range: 0.45 - 4 .70 mIU/L. The refe rence range was not u sed to interpret this result as normal/abnor mal. Lab Interpretation (test Abnormal code = 61520-4) [facility] CenterGlycosylated Hemoglobin (A1C)2019-08-01 04:11:00 Test Item Value Reference Interpretation Comments Range HGB A1C (test code = See_Comment H [Autom ated 4548-4) message] The system which generated this result transmitted reference range : 4.0 - 6.0 % NGSP. The reference range was not used to interpret this result as normal/abnormal . NU (test code = %A1C (NGSP) NU) Interpretation (ADA)4.8-5.6 ? ? Normal or (Non-Diabetic Range)5.7-6.4 ? ? Increased Risk (Pre-Diabetic)>6.5 ?Diabetes Indicated Lab Interpretation Abnormal (test code = 69305-5) [facility] CenterMagnesium [id number] 03:59:00 Test Item Value Reference Range Interpretation Comments MAGNESIUM (test code = 8382033493) 1.9 mg/dL 1.7-2.4 Lab Interpretation (test code = Normal 29626-7) [facility] CenterPhosphorus [id number] 03:59:00 Test Item Value Reference Range Interpretation Comments PHOSPHORUS (test code = 6776561738) 4.6 mg/dL 2.5-5 Lab Interpretation (test code = Normal 17634-7) [facility] GLUCOSE (AUTOMATED)2019-08-01 03:56:00 Test Item Value Reference Range Interpretation Comments POCT GLU (test code = 576 mg/dL 70-110 HH 3764613074) NU (test code = NU) Notified Provider Lab Interpretation (test Abnormal code = 35160-8) [facility] GLUCOSE (AUTOMATED)2019-08-01 03:56:00 Test Item Value Reference Range Interpretation Comments POCT GLU (test code = 1642537929) 432 mg/dL 70-110 H Lab Interpretation (test code = Abnormal 08710-5) [facility] CenterURINALYSIS2020-01-19 03:12:00 Test Item Value Reference Range Interpretation Comments APPEARANCE (test code = Clear Clear 6959035138) COLOR (test code = Straw Yellow A 2724705091) PH (test code = 4.8-8.0 8549751170) SP GRAVITY (test code = 1.003-1.030 6437458633) GLU U QUAL (test code = 500 mg/dL Normal A 1118113587) BLOOD (test code = Negative Negative 3172286936) KETONES (test code = Negative Negative 9038371335) PROTEIN (test code = Negative Negative 2887-8) UROBILIN (test code = Normal Normal 9385304293) BILIRUBIN (test code = Negative Negative 7040051690) NITRITE (test code = Negative Negative 5543820963) LEUK GUADALUPE (test code = Negative Negative 5384669735) RBC/HPF (test code = See_Comment [Autom ated message] 3729236299) The system [employer] generated this result transmit thong reference range : 0 - 3 HPF. The refe rence range was not u sed to interpret th is result as normal/abnormal . WBC/HPF (test code = <1 See_Comment [Autom ated message] 1338977516) The system [employer] generated this result transmit thong reference range : 0 - 5 HPF. The refe rence range was not u sed to interpret th is result as normal/abnormal . BACTERIA (test code = Negative Negative 6959236361) SQ EPITH (test code = <1 HPF 7777463495) Lab Interpretation (test Abnormal code = 19014-1) [facility]. METABOLIC PANEL (25988)2019-08-01 03:10:00 Test Item Value Reference Range Interpretation Comments NA (test code = 133 mmol/L 135-145 L 2334823305) K (test code = 5.4 mmol/L 3.5-5 H 1670041859) CL (test code = 98 mmol/L 98-108 5315675716) CO2 TOTAL (test code = 23 mmol/L 23-31 9830287688) AGAP (test code = 2-16 3081602218) BUN (test code = 19 mg/dL 7-23 5522623372) GLUCOSE (test code = 678 mg/dL 70-110 HH 7282280856) CREATININE (test code = 0.65 mg/dL 0.5-1.04 1552455415) TOTAL BILI (test code = 1.0 mg/dL 0.1-1.6 4275699214) CALCIUM (test code = 9.7 mg/dL 8.6-10.6 9452724424) T PROTEIN (test code = 7.8 g/dL 6.3-8.2 4262263874) ALBUMIN (test code = 3.9 g/dL 3.5-5 2457372042) ALK PHOS (test code = 174 U/L 34-122 H 5061355848) ALTv (test code = 44 U/L 5-35 H 1742-6) AST(SGOT) (test code = 60 U/L 13-40 H 3880998671) eGFR Calculation mL/min/1.73m2 (Non-) (test code = 3042586850) eGFR Calculation mL/min/1.73m2 () (test code = 1387828978) NU (test code = NU) Association of Glomerular Filtration Rate (GFR) and Staging of Kidney Disease* + --+ --+ ------+| GFR (mL/min/1.73 m2) ?| With Kidney Damage ?| ?Without Kidney Damage+ --------+ --------+ +| ?>90 ?| ?Stage one ?| ? Normal ?+ ---+ ---+ -------+| ?60-89 ?| ?Stage two ?| ? Decreased GFR ? + --+ --+ ------+| ?30-59 ?| ?Stage three ?| ? Stage three ? + --+ --+ ------+| ?15-29 ?| ?Stage four ? | ? Stage four ?+ ---+ ---+ -------+| ?<15 (or dialysis) ? ?| ?Stage five ? | ? Stage five ?+ ---+ ---+ -------+ *Each stage assumes the associated GFR level has been in effect for at least three months. ?Stages 1 to 5, with or without kidney disease, indicate chronic kidney disease. Notes: Determination of stages one and two (with eGFR >59mL/min/1.73 m2) requires estimation of kidney damage for at least three months as defined by structural or functional abnormalities of the kidney, manifested by either:Pathological abnormalities or Markers of kidney damage (including abnormalities in the composition of the blood or urine or abnormalities in imaging tests). Lab Interpretation Abnormal (test code = 95043-1) [facility] CenterXR CHEST 1 [id number] 02:59:44Impression: No radiographic evidence for acute cardiopulmonary disease. RL: [id number] AFC: [id number] Indication: Cough Comparison: None Findings: Single AP view of the chest. The cardiopericardial silhouette iswithin normal limits. The lungs are clear bilaterally. The visualized bonythorax is intact. [facility], Radiant Results Inft User - 07/31/2019 9:00 PM CSTIndication: CoughComparison: NoneFindings: Single AP view of the chest. The cardiopericardial silhouette iswithin normal limits. The lungs are clear bilaterally. The visualized bonythorax is intact.IMPRESSIONImpression:No radiographic evidence for acute cardiopulmonary disease.RL: 460AFC: [id number] signed by Minerva Loyola MD, PhD at 07/31/2019 8:59 PMUnNor[facility] WITH DIFFERENTIAL 2019-08-01 02:44:00 Test Item Value Reference Range Interpretation Comments WBC (test code = See_Comment [Automated 5591-2) message] The sy stem which generated this result transmitted reference range : 4.30 - 11.10 10*3/?L. The reference range was not used to interpret this result as normal/abnormal . RBC (test code = See_Comment [Automated 904-8) message] The sy stem which generated this result transmitted reference range : 3.93 - 5.25 10*6/?L. The reference range was not used to interpret this result as normal/abnormal . HGB (test code = 11.6 g/dL 11.6-15 718-7) HCT (test code = 35.7 % 35.7-45.2 4544-3) MCV (test code = 90.8 fL 80.6-95.5 787-2) MCH (test code = 29.5 pg 25.9-32.8 785-6) MCHC (test code = 32.5 g/dL 31.6-35.1 786-4) RDW-SD (test code = 49.8 fL 39-49.9 30508-4) RDW-CV (test code = 15.0 % 12-15.5 788-0) PLT (test code = See_Comment L [Automated 777-3) message] The sy stem which generated this result transmitted reference range : 166 - 358 10*3/ ?L. The reference r pardeep was not used to interpret this result as normal/abnormal . MPV (test code = 10.6 fL 9.5-12.9 67184-3) NRBC/100 WBC (test See_Comment [Automat ed code = 4417692347) message] The system which generated this result transmitted reference range : 0.0 - 10.0 /100 WBCs. The refer ence range was not u sed to interpret th is result as normal/abnormal . NRBC x10^3 (test code <0.01 See_Comment [Auto mated = 5953441969) message] The s ystem which generated this result transmitted reference range : 10*3/?L. The reference range was not used to interpret this result as normal/abnormal . GRAN MAT (NEUT) % 76.7 % (test code = 770-8) IMM GRAN % (test code 0.20 % = 4456906183) LYMPH % (test code = 16.7 % 736-9) MONO % (test code = 5.4 % 5905-5) EOS % (test code = 0.6 % 713-8) BASO % (test code = 0.4 % 706-2) GRAN MAT x10^3(ANC) 3.71 10*3/uL 1.88-7.09 (test code = 6034742337) IMM GRAN x10^3 (test <0.03 0-0.06 code = 4904151618) LYMPH x10^3 (test code 0.81 10*3/uL 1.32-3.29 L = 731-0) MONO x10^3 (test code 0.26 10*3/uL 0.33-0.92 L = 742-7) EOS x10^3 (test code = 0.03 10*3/uL 0.03-0.39 711-2) BASO x10^3 (test code <0.03 0.01-0.07 = 704-7) Lab Interpretation Abnormal (test code = 22986-5) [facility] CenterACUTE CARE VENOUS BLOOD [id number] 02:12:00 Test Item Value Reference Range Interpretation Comments PH (test code = 7.32-7.42 9249904736) PCO2 VALERIANO (test code = See_Comment [Auto mated message] 3454290568) The system [employer] generated this result transmitted ref erence range: 41 - 51 mmHg. The reference r pardeep was not used to interpret this result as normal/abnor mal. PO2 VALERIANO (test code = See_Comment H [Autom ated message] 6710234511) The system [employer] generated this result transmitted ref erence range: 25 - 40 mmHg. The reference r pardeep was not used to interpret this result as normal/abnor mal. HCO3 VALERIANO (test code = See_Comment [Auto mated message] 1299100457) The system [employer] generated this result transmitted ref erence range: 24 - 28 mEq/L. The reference r pardeep was not used to interpret this result as normal/abnor mal. AC VBE(BEAKER) (test mEq/L code = 6584808022) Lab Interpretation (test Abnormal code = 05443-2) [facility] CenterALPHA FETOPROTEIN (AFP), TUMOR MARKER 2018-09-03 16:30:00 Test Item Value Reference Range Interpretation Comments ALPHA-FETOPROTEIN (BEAKER) (test 10.9 ng/mL <10.0 H code = 1094) HEPATIC FUNCTION [id number] 16:13:00 Test Item Value Reference Range Interpretation [...] = 15 U/L 6-55 347) BASIC METABOLIC [id number] 16:13:00 Test Item Value Reference Range Interpretation [...] 697) EGFR (BEAKER) (test 76 mL/min/1.73 ESTIMA THONG GFR IS code = 1092) sq m NOT ACCURATE CREATININE CLEARANCE IN PREDICTING GLOMERULAR FILTRATION RATE . ESTIMATED GFR I S NOT APPLICABLE FOR DIALYSIS PATIEN TS. PROTHROMBIN TIME/[id number] 16:05:00 Test Item Value Reference Range Interpretation [...] PERCENT (BEAKER) (test code = 2801) Bedside Dlhjnnq6728-15-33 11:44:00 Test Item Value Reference Range Interpretation Comments Bedside Glucose (test code = 39608-0) 310 70-120 H Meter ID: [id number] [facility]Creat[facility] Kinase MB 2017-10-30 19:51:00 Test Item Value Reference Range Interpretation Comments Creatine Kinase MB (test code = 0.80 0-5.0 19399-3) [facility]rop[facility] [id number] 19:51:00 Test Item Value Reference Range Interpretation Comments Troponin I (test code = ITE4988) -0.001 0-0.300 [facility] SystemCreatine Mauobd4312-05-35 19:44:00 Test Item Value Reference Range Interpretation Comments Creatine Kinase (test code = 2157-6) 35 29-168 [facility] SystemVitamin B12 Fzqfi1821-40-51 10:03:00 Test Item Value Reference Range Interpretation Comments Vitamin B12 Level (test code = 75369-8) 789 213-816 [facility] SystemFolate2018-04-19 10:03:00 Test Item Value Reference Range Interpretation Comments Folate (test code = 2284-8) 8.8 7.0-15.4 [facility] SystemThyroid Stimulating Hormone (TSH) 2017-10-30 09:51:00 Test Item Value Reference Range Interpretation Comments Thyroid Stimulating Hormone (TSH) (test 2.053 0.350-4.940 code = 20795-0) [facility] SystemBlood Wxyafdv6031-68-00 20:02:00 Test Item Value Reference Range Interpretation Comments Blood Culture (test NO GROWTH AFTER 5 code = 86635660) DAYS, FINAL REPORT [facility] Fswuppa3101-54-56 20:02:00 Test Item Value Reference Range Interpretation Comments Blood Culture (test NO GROWTH AFTER 5 code = 68669668) DAYS, [facility] Awhln6387-86-23 00:57:00 Test Item Value Reference Range Interpretation Comments Sodium Level (test code = 2951-2) 139 136-145 [facility] SystemPotassium Yrigt9463-29-72 00:57:00 Test Item Value Reference Range Interpretation Comments Potassium Level (test code = 2823-3) 2.9 3.5-5.1 LL Results called to [CORINE RN/ER] at 0053 on 05/24/17 by Anny Christensen. [place]. [facility] SystemChloride Norgx3231-23-48 00:57:00 Test Item Value Reference Range Interpretation Comments Chloride Level (test code = 2075-0) 109 98-107 H [facility] SystemCarbon Dioxide Rddax8303-05-06 00:57:00 Test Item Value Reference Range Interpretation Comments Carbon Dioxide Level (test code = 20 22-29 L 2028-03) [facility] SystemAnion Upw3148-40-64 00:57:00 Test Item Value Reference Range Interpretation Comments Anion Gap (test code = 73818-2) 12.9 8-16 [facility] SystemBlood Urea Lbhdoosv3586-01-74 00:57:00 Test Item Value Reference Range Interpretation Comments Blood Urea Nitrogen (test code = 6 7-26 L 3094-0) [facility] SystemCreatinine2017-11-11 00:57:00 Test Item Value Reference Range Interpretation Comments Creatinine (test code = 2160-0) 0.67 0.57-1.11 [facility] SystemBUN/Creatinine Ycmbv1345-30-80 00:57:00 Test Item Value Reference Range Interpretation Comments BUN/Creatinine Ratio (test code = 9 01-05 3097-3) [facility] SystemEstimat Glomerular Filtration Rate 2017-05-24 00:57:00 Test Item Value Reference Range Interpretation Comments Estimat Glomerular Filtration Rate 60- >60 (test code = 48868-4) Ranges were taken from the National Kidney Disease Education Program and the National Kidney Foundation literature.Reference ranges:60 or greater: Daipqd23- 59 (for 3 consecutive months): Chronic kidneydisease 15 or less: Kidney failure [facility] SystemGlucose Dfzsz4202-34-82 00:57:00 Test Item Value Reference Range Interpretation Comments Glucose Level (test code = KWF5687) 272 74-118 H [facility] SystemCalcium Dmanx1405-46-69 00:57:00 Test Item Value Reference Range Interpretation Comments Calcium Level (test code = 81552-8) 8.1 8.4-10.2 L [facility]odium Emgpt2312-16-39 00:57:00 Test Item Value Reference Range Interpretation Comments Sodium Level (test code = 2951-2) 139 136-145 [facility] SystemPotassium Hajxo0144-85-22 00:57:00 Test Item Value Reference Range Interpretation Comments Potassium Level (test code = 2823-3) 2.9 3.5-5.1 LL Results called to [CORINE RN/ER] at 0053 on 05/24/17 by Anny PIERCE [place]. [facility] SystemChloride Jdivn2113-54-23 00:57:00 Test Item Value Reference Range Interpretation Comments Chloride Level (test code = 2075-0) 109 98-107 H [facility] SystemCarbon Dioxide Epatj8872-48-35 00:57:00 Test Item Value Reference Range Interpretation Comments Carbon Dioxide Level (test code = 20 22-29 L 8-9) [facility] SystemAnion Kxx5086-92-32 00:57:00 Test Item Value Reference Range Interpretation Comments Anion Gap (test code = 31562-7) 12.9 8-16 [facility] SystemBlood Urea Xrrmlqhg0822-60-37 00:57:00 Test Item Value Reference Range Interpretation Comments Blood Urea Nitrogen (test code = 6 7-26 L 3094-0) [facility] SystemCreatinine2017-11-11 00:57:00 Test Item Value Reference Range Interpretation Comments Creatinine (test code = 2160-0) 0.67 0.57-1.11 [facility] SystemBUN/Creatinine Rmeii6320-10-99 00:57:00 Test Item Value Reference Range Interpretation Comments BUN/Creatinine Ratio (test code = 9 625 3097-3) [facility] SystemEstimat Glomerular Filtration Rate 2017-05-24 00:57:00 Test Item Value Reference Range Interpretation Comments Estimat Glomerular Filtration Rate 60- >60 (test code = 33115-4) Ranges were taken from the National Kidney Disease Education Program and the National Kidney Foundation literature.Reference ranges:60 or greater: Qbbses81- 59 (for 3 consecutive months): Chronic kidneydisease 15 or less: Kidney failure [facility] SystemGlucose Acwgg9483-01-48 00:57:00 Test Item Value Reference Range Interpretation Comments Glucose Level (test code = KOR5023) 272 74-118 H [facility] SystemCalcium Zapht3916-85-21 00:57:00 Test Item Value Reference Range Interpretation Comments Calcium Level (test code = 85021-7) 8.1 8.4-10.2 L [facility] Wwxvmgqbq3075-47-16 21:06:00 Test Item Value Reference Range Interpretation Comments Total Bilirubin (test code = 1975-2) 0.6 0.2-1.2 [facility] SystemAspartate Amino Transf (AST/SGOT) 2017-05-23 21:06:00 Test Item Value Reference Range Interpretation Comments Aspartate Amino Transf (AST/SGOT) (test 50 5-34 H code = Aspartate Amino Transf (AST/SGOT)) [facility] SystemAlanine Aminotransferase (ALT/SGPT) 2017-05-23 21:06:00 Test Item Value Reference Range Interpretation Comments Alanine Aminotransferase (ALT/SGPT) 46 0-55 (test code = 1742-6) [facility] Ipaxmbx7509-08-70 21:06:00 Test Item Value Reference Range Interpretation Comments Total Protein (test code = 2885-2) 7.3 6.5-8.1 [facility] SystemAlbumin2017-11-10 21:06:00 Test Item Value Reference Range Interpretation Comments Albumin (test code = 1751-7) 3.1 3.5-5.0 L [facility] SystemGlobulin2017-11-10 21:06:00 Test Item Value Reference Range Interpretation Comments Globulin (test code = 10359-3) 4.2 2.3-3.5 H [facility] SystemAlbumin/Globulin Moeea1294-12-07 21:06:00 Test Item Value Reference Range Interpretation Comments Albumin/Globulin Ratio (test code = 0.7 0.8-2.0 L 1759-0) [facility] SystemAlkaline Dstngpucncc5341-03-38 21:06:00 Test Item Value Reference Range Interpretation Comments Alkaline Phosphatase (test code = 196 40-150 H 6768-6) [facility] Iykehhxyr3581-76-60 21:06:00 Test Item Value Reference Range Interpretation Comments Total Bilirubin (test code = 1975-2) 0.6 0.2-1.2 [facility] SystemAspartate Amino Transf (AST/SGOT) 2017-05-23 21:06:00 Test Item Value Reference Range Interpretation Comments Aspartate Amino Transf (AST/SGOT) (test 50 5-34 H code = Aspartate Amino Transf (AST/SGOT)) [facility] SystemAlanine Aminotransferase (ALT/SGPT) 2017-05-23 21:06:00 Test Item Value Reference Range Interpretation Comments Alanine Aminotransferase (ALT/SGPT) 46 0-55 (test code = 1742-6) [facility] SystemTotal Ttbgsel9213-97-38 21:06:00 Test Item Value Reference Range Interpretation Comments Total Protein (test code = 2885-2) 7.3 6.5-8.1 [facility] SystemAlbumin2017-11-10 21:06:00 Test Item Value Reference Range Interpretation Comments Albumin (test code = 1751-7) 3.1 3.5-5.0 L [facility] SystemGlobulin2017-11-10 21:06:00 Test Item Value Reference Range Interpretation Comments Globulin (test code = 52752-3) 4.2 2.3-3.5 H [facility] SystemAlbumin/Globulin Ihipu7183-30-29 21:06:00 Test Item Value Reference Range Interpretation Comments Albumin/Globulin Ratio (test code = 0.7 0.8-2.0 L 1759-0) [facility] SystemAlkaline Becfgvoaygw4846-20-42 21:06:00 Test Item Value Reference Range Interpretation Comments Alkaline Phosphatase (test code = 196 40-150 H 6768-6) [facility] SystemWhite Blood Zsgjc5856-28-22 20:53:00 Test Item Value Reference Range Interpretation Comments White Blood Count (test code = 6690-2) 6.48 4.8-10.8 [facility] SystemRed Blood Zgdyz3169-62-46 20:53:00 Test Item Value Reference Range Interpretation Comments Red Blood Count (test code = 789-8) 4.15 3.6-5.1 [facility] SystemHemoglobin2017-11-10 20:53:00 Test Item Value Reference Range Interpretation Comments Hemoglobin (test code = 08487-2) 12.4 12.0-16.0 [facility] SystemHematocrit2017-11-10 20:53:00 Test Item Value Reference Range Interpretation Comments Hematocrit (test code = 4544-3) 36.8 34.2-44.1 [facility] SystemMean Corpuscular Fwdvxg5968-54-76 20:53:00 Test Item Value Reference Range Interpretation Comments Mean Corpuscular Volume (test code = 88.7 81-99 787-2) [facility] SystemMean Corpuscular Vnqkdfyrwq7941-04-31 20:53:00 Test Item Value Reference Range Interpretation Comments Mean Corpuscular Hemoglobin (test code 29.9 28-32 = 785-6) [facility] SystemMean Corpuscular Hemoglobin Concent 2017-05-23 20:53:00 Test Item Value Reference Range Interpretation Comments Mean Corpuscular Hemoglobin Concent 33.7 31-35 (test code = 786-4) [facility] SystemRed Cell Distribution Pvftn9240-84-54 20:53:00 Test Item Value Reference Range Interpretation Comments Red Cell Distribution Width (test code 14.0 11.7-14.4 = 50210-0) [facility] SystemPlatelet Ulssn9194-97-70 20:53:00 Test Item Value Reference Range Interpretation Comments Platelet Count (test code = 777-3) 54 140-360 L [facility] SystemNeutrophils (%) (Auto)2017-05-23 20:53:00 Test Item Value Reference Range Interpretation Comments Neutrophils (%) (Auto) (test code = 72.3 38.7-80.0 79031-8) [facility] SystemLymphocytes (%) (Auto)2017-05-23 20:53:00 Test Item Value Reference Range Interpretation Comments Lymphocytes (%) (Auto) (test code = 21.1 18.0-39.1 736-9) [facility] SystemMonocytes (%) (Auto)2017-05-23 20:53:00 Test Item Value Reference Range Interpretation Comments Monocytes (%) (Auto) (test code = 5.1 4.4-11.3 5905-5) [facility] SystemEosinophils (%) (Auto)2017-05-23 20:53:00 Test Item Value Reference Range Interpretation Comments Eosinophils (%) (Auto) (test code = 0.9 0.0-6.0 713-8) [facility] SystemBasophils (%) (Auto)2017-05-23 20:53:00 Test Item Value Reference Range Interpretation Comments Basophils (%) (Auto) (test code = 0.3 0.0-1.0 706-2) [facility] SystemIM GRANULOCYTES %2017-05-23 20:53:00 Test Item Value Reference Range Interpretation Comments IM GRANULOCYTES % (test code = IM 0.3 0.0-1.0 GRANULOCYTES %) [facility] SystemNeutrophils # (Auto)2017-05-23 20:53:00 Test Item Value Reference Range Interpretation Comments Neutrophils # (Auto) (test code = 4.7 2.1-6.9 751-8) [facility] SystemLymphocytes # (Auto)2017-05-23 20:53:00 Test Item Value Reference Range Interpretation Comments Lymphocytes # (Auto) (test code = 1.4 1.0-3.2 39269-6) [facility] SystemMonocytes # (Auto)2017-05-23 20:53:00 Test Item Value Reference Range Interpretation Comments Monocytes # (Auto) (test code = 742-7) 0.3 0.2-0.8 [facility] SystemEosinophils # (Auto)2017-05-23 20:53:00 Test Item Value Reference Range Interpretation Comments Eosinophils # (Auto) (test code = 0.1 0.0-0.4 711-2) [facility] SystemBasophils # (Auto)2017-05-23 20:53:00 Test Item Value Reference Range Interpretation Comments Basophils # (Auto) (test code = 704-7) 0.0 0.0-0.1 [facility] SystemAbsolute Immature Granulocyte (auto 2017-05-23 20:53:00 Test Item Value Reference Range Interpretation Comments Absolute Immature Granulocyte (auto 0.02 0-0.1 (test code = Absolute Immature Granulocyte (auto) [facility] SystemWhite Blood Omfkf3564-69-74 20:53:00 Test Item Value Reference Range Interpretation Comments White Blood Count (test code = 6690-2) 6.48 4.8-10.8 [facility] SystemRed Blood Mxxty4530-93-68 20:53:00 Test Item Value Reference Range Interpretation Comments Red Blood Count (test code = 789-8) 4.15 3.6-5.1 [facility] SystemHemoglobin2017-11-10 20:53:00 Test Item Value Reference Range Interpretation Comments Hemoglobin (test code = 67483-9) 12.4 12.0-16.0 [facility] SystemHematocrit2017-11-10 20:53:00 Test Item Value Reference Range Interpretation Comments Hematocrit (test code = 4544-3) 36.8 34.2-44.1 [facility] SystemMean Corpuscular Fjraht0715-54-66 20:53:00 Test Item Value Reference Range Interpretation Comments Mean Corpuscular Volume (test code = 88.7 81-99 787-2) [facility] SystemMean Corpuscular Qvfdgixjap9692-77-39 20:53:00 Test Item Value Reference Range Interpretation Comments Mean Corpuscular Hemoglobin (test code 29.9 28-32 = 785-6) [facility] SystemMean Corpuscular Hemoglobin Concent 2017-05-23 20:53:00 Test Item Value Reference Range Interpretation Comments Mean Corpuscular Hemoglobin Concent 33.7 31-35 (test code = 786-4) [facility] SystemRed Cell Distribution Zwsuh3808-20-40 20:53:00 Test Item Value Reference Range Interpretation Comments Red Cell Distribution Width (test code 14.0 11.7-14.4 = 64492-3) [facility] SystemPlatelet Zgbsd7185-30-18 20:53:00 Test Item Value Reference Range Interpretation Comments Platelet Count (test code = 777-3) 54 140-360 L [facility] SystemNeutrophils (%) (Auto)2017-05-23 20:53:00 Test Item Value Reference Range Interpretation Comments Neutrophils (%) (Auto) (test code = 72.3 38.7-80.0 13740-6) [facility] SystemLymphocytes (%) (Auto)2017-05-23 20:53:00 Test Item Value Reference Range Interpretation Comments Lymphocytes (%) (Auto) (test code = 21.1 18.0-39.1 736-9) [facility] SystemMonocytes (%) (Auto)2017-05-23 20:53:00 Test Item Value Reference Range Interpretation Comments Monocytes (%) (Auto) (test code = 5.1 4.4-11.3 5905-5) [facility] SystemEosinophils (%) (Auto)2017-05-23 20:53:00 Test Item Value Reference Range Interpretation Comments Eosinophils (%) (Auto) (test code = 0.9 0.0-6.0 713-8) [facility] SystemBasophils (%) (Auto)2017-05-23 20:53:00 Test Item Value Reference Range Interpretation Comments Basophils (%) (Auto) (test code = 0.3 0.0-1.0 706-2) [facility] SystemIM GRANULOCYTES %2017-05-23 20:53:00 Test Item Value Reference Range Interpretation Comments IM GRANULOCYTES % (test code = IM 0.3 0.0-1.0 GRANULOCYTES %) [facility] SystemNeutrophils # (Auto)2017-05-23 20:53:00 Test Item Value Reference Range Interpretation Comments Neutrophils # (Auto) (test code = 4.7 2.1-6.9 751-8) [facility] SystemLymphocytes # (Auto)2017-05-23 20:53:00 Test Item Value Reference Range Interpretation Comments Lymphocytes # (Auto) (test code = 1.4 1.0-3.2 33342-7) [facility] SystemMonocytes # (Auto)2017-05-23 20:53:00 Test Item Value Reference Range Interpretation Comments Monocytes # (Auto) (test code = 742-7) 0.3 0.2-0.8 [facility] SystemEosinophils # (Auto)2017-05-23 20:53:00 Test Item Value Reference Range Interpretation Comments Eosinophils # (Auto) (test code = 0.1 0.0-0.4 711-2) [facility] SystemBasophils # (Auto)2017-05-23 20:53:00 Test Item Value Reference Range Interpretation Comments Basophils # (Auto) (test code = 704-7) 0.0 0.0-0.1 [facility] SystemAbsolute Immature Granulocyte (auto 2017-05-23 20:53:00 Test Item Value Reference Range Interpretation Comments Absolute Immature Granulocyte (auto 0.02 0-0.1 (test code = Absolute Immature Granulocyte (auto) [facility] SystemBedside Zluewkp5133-56-21 02:22:00 Test Item Value Reference Range Interpretation Comments Bedside Glucose (test code = 15431-5) 337 70-120 H Meter ID: [id number] [facility] SystemCreatine Kinase MB 2017-05-19 20:46:00 Test Item Value Reference Range Interpretation Comments Creatine Kinase MB (test code = 2.30 0.00-5.00 21152-7) [facility] SystemTroponin [id number] 20:46:00 Test Item Value Reference Range Interpretation Comments Troponin I (test code = VLC7459) 0.007 0-0.300 [facility] SystemMagnesium Pnmjq6687-07-56 20:42:00 Test Item Value Reference Range Interpretation Comments Magnesium Level (test code = 71214-6) 1.7 1.3-2.1 [facility] SystemCreatine Allfae9517-04-63 20:42:00 Test Item Value Reference Range Interpretation Comments Creatine Kinase (test code = 2157-6) 81 29-168 [facility] SystemMagnesium Cjzuk6030-08-36 20:42:00 Test Item Value Reference Range Interpretation Comments Magnesium Level (test code = 31787-7) 1.7 1.3-2.1 [facility] SystemProthrombin Bvpr2672-53-91 20:34:00 Test Item Value Reference Range Interpretation Comments Prothrombin Time (test code = 5902-2) 12.9 11.9-14.5 [facility] SystemProthromb Time International Ratio 2017-05-19 20:34:00 Test Item Value Reference Range Interpretation Comments Prothromb Time International Ratio 0.93 (test code = 6301-6) Oral Anticoagulant Therapy INR Values:1. Low Intensity Therapy 1.5 - 2.02. Moderate IntensityTherapy 2.0 - 3.03. High Intensity Therapy(1) 2.5 - 3.54. High Intensity Therapy(2) 3.0 - 4.05. Panic Value INR > 5.0[facility] SystemActivated Partial Thromboplast Time 2017-05-19 20:34:00 Test Item Value Reference Range Interpretation Comments Activated Partial Thromboplast Time 27.5 23.8-35.5 (test code = 63296-6) [facility] SystemProthrombin Xeye7185-99-51 20:34:00 Test Item Value Reference Range Interpretation Comments Prothrombin Time (test code = 5902-2) 12.9 11.9-14.5 [facility] SystemProthromb Time International Ratio 2017-05-19 20:34:00 Test Item Value Reference Range Interpretation Comments Prothromb Time International Ratio 0.93 (test code = 6301-6) Oral Anticoagulant Therapy INR Values:1. Low Intensity Therapy 1.5 - 2.02. Moderate IntensityTherapy 2.0 - 3.03. High Intensity Therapy(1) 2.5 - 3.54. High Intensity Therapy(2) 3.0 - 4.05. Panic Value INR > 5.0[facility] SystemActivated Partial Thromboplast Time 2017-05-19 20:34:00 Test Item Value Reference Range Interpretation Comments Activated Partial Thromboplast Time 27.5 23.8-35.5 (test code = 99338-1) [facility] NTF4529-42-15 20:13:00 Test Item Value Reference Range Interpretation Comments Urine WBC (test code = 5821-4) 0-5 0-5 [facility] SystemU[facility] [id number] 20:13:00 Test Item Value Reference Range Interpretation Comments Urine RBC (test code = 92694-6) NONE 0-5 [facility] SystemU[facility] Qdwwhgqw1086-79-55 20:13:00 Test Item Value Reference Range Interpretation Comments Urine Bacteria (test code = 52934-9) FEW NONE [facility] SystemUrine Epithelial Jovzr5307-94-22 20:13:00 Test Item Value Reference Range Interpretation Comments Urine Epithelial Cells (test code = FEW NONE 25562-7) [facility] ZQZ1424-56-54 20:13:00 Test Item Value Reference Range Interpretation Comments Urine WBC (test code = 5821-4) 0-5 0-5 [facility] PLC5073-07-01 20:13:00 Test Item Value Reference Range Interpretation Comments Urine RBC (test code = 61057-6) NONE 0-5 [facility] Mnhkvftz2429-87-45 20:13:00 Test Item Value Reference Range Interpretation Comments Urine Bacteria (test code = 67108-1) FEW NONE [facility] SystemUrine Epithelial Jeryf7532-97-35 20:13:00 Test Item Value Reference Range Interpretation Comments Urine Epithelial Cells (test code = FEW NONE 93103-1) [facility] SystemU[facility] Wqpcw2438-40-61 19:42:00 Test Item Value Reference Range Interpretation Comments Urine Color (test code = 5778-6) STRAW YELLOW [facility] SystemUrine Fbmcpxz5301-98-03 19:42:00 Test Item Value Reference Range Interpretation Comments Urine Clarity (test code = 99973-8) CLEAR CLEAR [facility] SystemUrine Specific Hjwxvrb7205-00-06 19:42:00 Test Item Value Reference Range Interpretation Comments Urine Specific Coffey (test code = 1.005 1.010-1.025 L 5811-5) [facility] SystemUrine oX1992-63-99 19:42:00 Test Item Value Reference Range Interpretation Comments Urine pH (test code = 05142-8) 7 5-7 [facility] Leukocyte Zlvyabjn3262-31-04 19:42:00 Test Item Value Reference Range Interpretation Comments Urine Leukocyte Esterase (test code NEGATIVE NEGATIVE = 5799-2) [facility] Lhczerk3810-54-51 19:42:00 Test Item Value Reference Range Interpretation Comments Urine Nitrite (test code = 24661-0) NEGATIVE NEGATIVE [facility] Lgznvtx0413-56-72 19:42:00 Test Item Value Reference Range Interpretation Comments Urine Protein (test code = 5804-0) NEGATIVE NEGATIVE [facility] Glucose (UA)2017-05-19 19:42:00 Test Item Value Reference Range Interpretation Comments Urine Glucose (UA) (test code = 2349-9) 3+ NEGATIVE H [facility] Zhmmftc5679-26-20 19:42:00 Test Item Value Reference Range Interpretation Comments Urine Ketones (test code = 90568-8) NEGATIVE NEGATIVE [facility] Bovaagtinttr4014-23-07 19:42:00 Test Item Value Reference Range Interpretation Comments Urine Urobilinogen (test code = 1 0.2-1 87850-9) [facility] Paqflrqry1237-51-57 19:42:00 Test Item Value Reference Range Interpretation Comments Urine Bilirubin (test code = 1978-6) NEGATIVE NEGATIVE [facility] Idnbz7778-76-37 19:42:00 Test Item Value Reference Range Interpretation Comments Urine Blood (test code = 84516-3) NEGATIVE NEGATIVE [facility] Ppphz6834-04-34 19:42:00 Test Item Value Reference Range Interpretation Comments Urine Color (test code = 5778-6) STRAW YELLOW [facility] Tgkdwof3534-41-07 19:42:00 Test Item Value Reference Range Interpretation Comments Urine Clarity (test code = 04025-6) CLEAR CLEAR [facility] Specific Rjrxgut0113-07-18 19:42:00 Test Item Value Reference Range Interpretation Comments Urine Specific Coffey (test code = 1.005 1.010-1.025 L 5811-5) [facility] [id number] 19:42:00 Test Item Value Reference Range Interpretation Comments Urine pH (test code = 51610-9) 7 5-7 [facility] Leukocyte [id number] 19:42:00 Test Item Value Reference Range Interpretation Comments Urine Leukocyte Esterase (test code NEGATIVE NEGATIVE = 5799-2) [facility] [id number] 19:42:00 Test Item Value Reference Range Interpretation Comments Urine Nitrite (test code = 59558-0) NEGATIVE NEGATIVE [facility] [id number] 19:42:00 Test Item Value Reference Range Interpretation Comments Urine Protein (test code = 5804-0) NEGATIVE NEGATIVE [facility] Glucose (UA)2017-05-19 19:42:00 Test Item Value Reference Range Interpretation Comments Urine Glucose (UA) (test code = 2349-9) 3+ NEGATIVE H [facility] [id number] 19:42:00 Test Item Value Reference Range Interpretation Comments Urine Ketones (test code = 37563-1) NEGATIVE NEGATIVE [facility] [id number] 19:42:00 Test Item Value Reference Range Interpretation Comments Urine Urobilinogen (test code = 1 0.2-1 71863-7) [facility] [id number] 19:42:00 Test Item Value Reference Range Interpretation Comments Urine Bilirubin (test code = 1978-6) NEGATIVE NEGATIVE [facility] [id number] 19:42:00 Test Item Value Reference Range Interpretation Comments Urine Blood (test code = 42825-9) NEGATIVE NEGATIVE [facility] Hzhbw1617-11-01 02:32:00 Test Item Value Reference Range Interpretation Comments Amylase Level (test code = 1798-8) 49 25-125 [facility]2017-10-06 02:32:00 Test Item Value Reference Range Interpretation Comments Lipase (test code = 3040-3) 51 8-78 [facility] [id number] 02:32:00 Test Item Value Reference Range Interpretation Comments Amylase Level (test code = 1798-8) 49 25-125 [facility]2017-10-06 02:32:00 Test Item Value Reference Range Interpretation Comments Lipase (test code = 3040-3) 51 8-78 [facility] System[facility] Ieugjqti2739-88-88 17:00:00 Test Item Value Reference Range Interpretation Comments Platelet Estimate (test SLIGHTLY DECREASED code = 01534-4) [facility] Morphology [id number] 17:00:00 Test Item Value Reference Range Interpretation Comments Platelet Morphology Comment (test FEW LARGE code = 66184-7) No platelet clumps seen on smearNorth[facility] SystemRed Cell Morphology [id number] 17:00:00 Test Item Value Reference Range Interpretation Comments Red Cell Morphology Comment (test code NORMAL = 6742-1) [facility] System[facility] [id number] 17:00:00 Test Item Value Reference Range Interpretation Comments Platelet Estimate (test SLIGHTLY DECREASED code = 66740-3) [facility] System[facility] Morphology [id number] 17:00:00 Test Item Value Reference Range Interpretation Comments Platelet Morphology Comment (test FEW LARGE code = 56577-3) No platelet clumps seen on smearNorth[facility] SystemRed Cell Morphology [id number] 17:00:00 Test Item Value Reference Range Interpretation Comments Red Cell Morphology Comment (test code NORMAL = 6742-1) [facility] Hyaline [id number] 14:57:00 Test Item Value Reference Range Interpretation Comments Urine Hyaline Casts (test code = 2-5 0-1 H 91446-5) [facility] System[facility] [id number] 14:57:00 Test Item Value Reference Range Interpretation Comments Urine Yeast (test code = 29385-7) FEW NONE H [facility] Hyaline [id number] 14:57:00 Test Item Value Reference Range Interpretation Comments Urine Hyaline Casts (test code = 2-5 0-1 H 66247-6) [facility] System[facility] [id number] 14:57:00 Test Item Value Reference Range Interpretation Comments Urine Yeast (test code = 38125-7) FEW NONE [facility] [address] [place] [address] Patient Name : GERA PALUMBO MR #: [id number] : 1960 Age/Sex: 57/F Adm Physician : ACACIA KUMAR MD Admit Date : 10/30/17 Location : [facility] Room/Bed : [place] [address] REPORT: Cardiology Report DATE OF STUDY: October [...] function, calculated ejection fraction 54%. Job#: [id number] GH cc: ACACIA KUMAR MD Signature Date Dictated By: VANNESA ANTON MD Transcribed By: DAVIN on 10/31/17 <Electronically signed by VANNESA ANTON MD><<Signature on File>>11/02/17 1416 COPY TO:CT CHEST WO [place] [address] [place] [address] Patient Name: GERA PALUMBO MR #: [id number] : 1960 Age/Sex: 57/F Req #: [id number] Adm Physician: ACACIA KUMAR MD Ordered by: ACACIA KUMAR MD Report #: [id number] Location: [facility] Room/Bed: [place] [address] Procedure: [id number] CT/CT CHEST WO Exam Date: 10/30/17 Exam [...] consistent with portal hypertension. Dictated by: Acacia Cardenas M.D. on 10/30/2017 at 13:18 Electronically approved by: Acacia Cardenas M.D. on 10/30/2017 at 13:18 Dictated By: ACACIA CARDENAS MD 1318 Transcribed By: MARLEE on 10/30/17 1318 COPY TO: ACACIA KUMAR ACUTE SERIES W/PA CXR [place] [address] Patient Name: GERA PALUMBO MR #: [id number] : 1960 Age/Sex: 56/F Req #: [id number] Adm Physician: Ordered by: JEF CAMPOS MD Report #: [id number] Location: ER Room/Bed: Procedure: [id number] DX/ABDOMEN ACUTE SERIES W/PA CXR Exam Date: [...] DONY on 04/18/17239 COPY TO: JEF CAMPOS MD"
[2021-06-02] MEDS ORDERED: ONDANSETRON 4 MG/2 ML VIAL ONE (23:13)
[2021-06-02] MEDS ORDERED: MORPHINE 4 MG/ML SYR ONE (23:13)
[2021-06-03 00:02] LABS: Absolute Lymphocytes (CBC) 0.7 K/uL (0.7-4.9); Basophils % 0.6 % (0-1.3); Hematocrit 26.1 % (36.0-45.0); Lymphocytes % 25.8 % (15.3-44.8); MPV 6.3 fL (7.6-11.3); RBC Red Blood Cell Count 2.89 M/uL (3.86-4.86)
[2021-06-03 00:06] LABS: Protime INR 1.11
[2021-06-03 00:26] LABS: ALT/SGPT 14 U/L (12-78); AST/SGOT 24 U/L (15-37); Albumin 2.1 g/dL (3.4-5.0); Alkaline Phosphatase 97 U/L (45-117); BUN Blood Urea Nitrogen 18 mg/dL (7-18); Bicarbonate 32 mmol/L (21-32); Bilirubin Direct 0.4 mg/dL (0-0.2); Bilirubin Total 0.9 mg/dL (0.2-1.0); Glucose Level 292 mg/dL (74-106); Magnesium 1.8 mg/dL (1.8-2.4); NT PRO-BNP 2333 pg/mL (<125); Potassium 3.7 mmol/L (3.5-5.1); Sodium Level 141 mmol/L (136-145); Troponin (Emerg Dept Use Only) < 0.02 ng/mL (0.0-0.045)
--- NOTE | 2021-06-03 00:32 | EDPHYS ---
Physician Documentation [facility] Name: Jeannette Ashby Age: 61 yrs Sex: Female : 1960 Arrival Date: 06/02/2021 Time: 22:26 Bed 25 Private MD: ED Physician Hoang Campbell HPI: 06/02 23:08 This 61 yrs old Female presents to ER via Wheelchair with complaints of Chest Pain > 30 mh7 y/o, High Blood Pressure. 23:08 The patient has shortness of breath with light activity. Onset: The symptoms/episode mh7 began/occurred 3 day(s) ago. Duration: The symptoms are intermittent, with no pattern. The patient's shortness of breath is aggravated by exertion, light activity, is alleviated by sitting up. Associated signs and symptoms: Pertinent positives: chest pain, non-productive cough, Pertinent negatives: productive cough, diaphoresis, dizziness, fever, hemoptysis, loss of consciousness, nausea, numbness in extremities, visual changes, vomiting. Severity of symptoms: At their worst the symptoms were moderate 2 day(s) ago, in the emergency department the symptoms have improved moderately. Historical: - Allergies: 22:32 Darvocet-N 100; aj1 22:32 Demerol; aj1 22:32 Erythromycin; aj1 22:32 Toradol; aj1 22:32 tramadol; aj1 22:32 Zithromax; aj1 - Home Meds: 22:32 carvedilol 6.25 mg Oral tab 1 tab [Active]; ernestro [Active]; Seroquel Oral [Active]; aj1 - PMHx: 22:32 Anxiety; Cancer, Breast; CHF; Chronic pain; Colitis; COPD; Depression; Diabetes - IDDM; aj1 Hypertension; Liver cell carcinoma; MUSCLE WEAKNESS; - Immunization history:: Flu vaccine is up to date. - Social history:: Smoking status: Patient reports the use of cigarette tobacco products, smokes one-half pack cigarettes per day. ROS: 23:08 Constitutional: Negative for fever, chills, and weight loss, Eyes: Negative for injury, mh7 pain, redness, and discharge, ENT: Negative for injury, pain, and discharge, Neck: Negative for injury, pain, and swelling, Abdomen/GI: Negative for abdominal pain, nausea, vomiting, diarrhea, and constipation, Back: Negative for injury and pain, : Negative for injury, bleeding, discharge, and swelling, MS/Extremity: Negative for injury and deformity, Skin: Negative for injury, rash, and discoloration, Neuro: Negative for headache, weakness, numbness, tingling, and seizure, Psych: Negative for depression, anxiety, suicide ideation, homicidal ideation, and hallucinations, Allergy/Immunology: Negative for hives, rash, and allergies, Endocrine: Negative for neck swelling, polydipsia, polyuria, polyphagia, and marked weight changes, Hematologic/Lymphatic: Negative for swollen nodes, abnormal bleeding, and unusual bruising. Exam: 23:08 Constitutional: This is a well developed, well nourished patient who is awake, alert, mh7 and in no acute distress. Head/Face: Normocephalic, atraumatic. Eyes: Pupils equal round and reactive to light, extra-ocular motions intact. Lids and lashes normal. Conjunctiva and sclera are non-icteric and not injected. Cornea within normal limits. Periorbital areas with no swelling, redness, or edema. Neck: Trachea midline, no thyromegaly or masses palpated, and no cervical lymphadenopathy. Supple, full range of motion without nuchal rigidity, or vertebral point tenderness. No Meningismus. Chest/axilla: Normal chest wall appearance and motion. Nontender with no deformity. No lesions are appreciated. Cardiovascular: Regular rate and rhythm with a normal S1 and S2. No gallops, murmurs, or rubs. Normal PMI, no JVD. No pulse deficits. 23:08 Back: No spinal tenderness. No costovertebral tenderness. Full range of motion. Skin: Warm, dry with normal turgor. Normal color with no rashes, no lesions, and no evidence of cellulitis. Neuro: Awake and alert, GCS 15, oriented to person, place, time, and situation. Cranial nerves II-XII grossly intact. Motor strength 5/5 in all extremities. Sensory grossly intact. Cerebellar exam normal. Normal gait. Psych: Awake, alert, with orientation to person, place and time. Behavior, mood, and affect are within normal limits. 23:08 Respiratory: the patient does not display signs of respiratory distress, Respirations: normal, Breath sounds: rhonchi, that are mild, are scattered, Respiratory rate: 20 Vital Signs: 22:30 BP 188 / 76; Pulse 87; Resp 24; Temp 98.0(T); Pulse Ox 94% on R/A; Weight 76.2 kg (R); aj1 Height 5 ft. 3 in. (160.02 cm) (R); Pain 8/10; 06/03 03:30 BP 138 / 80; Pulse 64; Resp 19; Temp 98.4; Pulse Ox 97% on R/A; mr2 06/02 22:30 Body Mass Index 29.76 (76.20 kg, 160.02 cm) aj1 MDM: 00:28 Differential diagnosis: Anemia Anxiety Reaction asthma, Bronchitis CHF exacerbation, 7 Chronic Obstructive Pulmonary Disease Myocardial Infarction pneumonia, Pneumothorax Psychogenic pulmonary edema, reactive airway disease. Data reviewed: vital signs, nurses notes, old medical records, lab test result(s), cardiac enzymes, CBC, electrolytes, EKG, radiologic studies, plain films. Data interpreted: Pulse oximetry: on room air is 94 %. Interpretation: acceptable. Counseling: I had a detailed discussion with the patient and/or guardian regarding: the historical points, exam findings, and any diagnostic results supporting the discharge/admit diagnosis, the presence of at least one elevated blood pressure reading (>120/80) during this emergency department visit, lab results, radiology results, the need for further work-up and treatment in the hospital. Response to treatment: the patient's symptoms have mildly improved after treatment. 00:31 Patient medically screened. [facility] 06/02 23:02 Order name: Basic Metabolic Panel [facility] 06/02 23:02 Order name: CBC with Diff [facility] 06/02 23:02 Order name: LFT's [facility] 06/02 23:02 Order name: Magnesium [facility] 06/02 23:02 Order name: NT PRO-BNP; Complete Time: 00:28 [facility] 06/02 23:02 Order name: PT-INR; Complete Time: 00:09 [facility] 06/02 23:02 Order name: Troponin (emerg Dept Use Only); Complete Time: 00:28 [facility] 06/02 23:03 Order name: Basic Metabolic Panel; Complete Time: 00:28 EDMS 06/02 23:03 Order name: CBC with Automated Diff [facility] 06/02 23:03 Order name: Liver (Hepatic) Function; Complete Time: 00:28 EDMD 06/02 23:03 Order name: Magnesium; Complete Time: 00:28 EDMD 06/02 23:30 Order name: COVID-19 SARS RT PCR (Document "Date of Onset" if Symptomatic) la1 06/03 00:11 Order name: CBC Smear Scan [facility] 06/03 04:54 Order name: Urine Dipstick-Ancillary [facility] 06/02 23:02 Order name: XRAY Chest (1 view) [facility] 06/02 23:02 Order name: EKG; Complete Time: 23:03 [facility] 06/02 23:02 Order name: Cardiac monitoring [facility] 06/02 23:02 Order name: EKG - Nurse/Tech [facility] 06/03 05:18 Order name: Urinalysis [facility] 06/03 07:19 Order name: CBC with Automated Diff [facility] 06/03 07:40 Order name: Glucose, Ancillary Testing [facility] 06/03 07:46 Order name: Troponin I [facility] 06/03 07:46 Order name: Lipid Profile [facility] 06/03 07:46 Order name: T4 Free [facility] 06/03 07:46 Order name: Thyroid Stimulating Hormone [facility] 06/03 08:07 Order name: Hemoglobin A1c [facility] 06/02 23:02 Order name: IV Saline Lock [facility] 06/02 23:02 Order name: Labs collected and sent [facility] 06/02 23:02 Order name: O2 Per Protocol [facility] 06/02 23:02 Order name: O2 Sat Monitoring [facility] 06/02 23:02 Order name: Urine Dipstick-Ancillary (obtain specimen); Complete Time: 04:54 [facility] Administered Medications: 06/02 23:17 Drug: morphine 4 mg Route: IVP; Site: right antecubital; mr2 23:17 Drug: Zofran (Ondansetron) 4 mg Route: IVP; Site: right antecubital; mr2 06/03 02:14 Drug: Lasix (furosemide) 20 mg Route: IVP; Site: left upper arm; mr2 02:14 Drug: Lasix (furosemide) 40 mg Route: IVP; Site: left upper arm; mr2 Disposition Summary: 06/03/21 00:31 Hospitalization Ordered Hospitalization Status: Inpatient Admission [facility] Provider: Jody Byrd Alex Condition: Stable [facility] Problem: an acute exacerbation [facility] Symptoms: have improved mh7 Bed/Room Type: Standard [facility] Location: [facility] ER HOLD(06/03/21 02:58) mw Room Assignment: ERHOLD-(06/03/21 02:58) mw Diagnosis - CHF Exacerbation [facility] Forms: - Medication Reconciliation Form 7 - SBAR form [facility] Signatures: Dispatcher [employer] EDBriana Giraldo RN RN aj1 Tracy Laurent RN RN mw Attema, Lee, YOLANDA-C SALES AND SERVICE REPRESENTATIVE-[facility]1 Hoang Campbell MD MD 7 Parish Ross RN RN mr2 Corrections: (The following items were deleted from the chart) 02:58 00:31 Telemetry/MedSurg (Inpatient) [facility] 02:58 00:31 [facility]
--- NOTE | 2021-06-03 00:32 | ER ---
Nurse's Notes [facility] Name: Jeannette Ashby Age: 61 yrs Sex: Female : 1960 Arrival Date: 06/02/2021 Time: 22:26 Bed 25 Private MD: Diagnosis: CHF Exacerbation Presentation: 06/02 22:30 Chief complaint: Patient states: "I got out of the hospital 2 weeks ago, since then aj1 I've been gaining fluid. For the past 3 days I've been having a hard time breathing, having chest pain and tightness. Now my blood pressure has been going up. When I checked it at home it was 200/111". Coronavirus screen: Vaccine status: Patient reports receiving the 2nd dose of the covid vaccine. Ebola Screen: Patient denies travel to an Ebola-affected area in the 21 days before illness onset. Initial Sepsis Screen: Does the patient meet any 2 criteria? No. Patient's initial sepsis screen is negative. Does the patient have a suspected source of infection? No. Patient's initial sepsis screen is negative. Risk Assessment: Do you want to hurt yourself or someone else? Patient reports no desire to harm self or others. Onset of symptoms was June 02, 2021. 22:30 Method Of Arrival: Wheelchair aj1 22:30 Acuity: VERONICA 3 aj1 Triage Assessment: 22:32 General: Appears in no apparent distress. uncomfortable, Behavior is calm, cooperative, aj1 appropriate for age. 22:32 Pain: Complains of pain in chest Pain does not radiate. Pain currently is 8 out of 10 aj1 on a pain scale. Quality of pain is described as pressure, Pain began 2-3 days ago. Is intermittent, Alleviated by laying down. EENT: No signs and/or symptoms were reported regarding the EENT system. Neuro: Level of Consciousness is awake, alert, obeys commands, Oriented to person, place, time, situation. Cardiovascular: Reports chest pain, shortness of breath, Patient's skin is warm and dry. Respiratory: Airway is patent Respiratory effort is even, unlabored, Respiratory pattern is regular, symmetrical. Historical: - Allergies: 22:32 Darvocet-N 100; aj1 22:32 Demerol; aj1 22:32 Erythromycin; aj1 22:32 Toradol; aj1 22:32 tramadol; aj1 22:32 Zithromax; aj - Home Meds: 22:32 carvedilol 6.25 mg Oral tab 1 tab [Active]; ernestro [Active]; Seroquel Oral [Active]; aj - PMHx: 22:32 Anxiety; Cancer, Breast; CHF; Chronic pain; Colitis; COPD; Depression; Diabetes - IDDM; aj1 Hypertension; Liver cell carcinoma; MUSCLE WEAKNESS; - Immunization history:: Flu vaccine is up to date. - Social history:: Smoking status: Patient reports the use of cigarette tobacco products, smokes one-half pack cigarettes per day. Vital Signs: 22:30 BP 188 / 76; Pulse 87; Resp 24; Temp 98.0(T); Pulse Ox 94% on R/A; Weight 76.2 kg (R); aj1 Height 5 ft. 3 in. (160.02 cm) (R); Pain 02/20; 06/03 03:30 BP 138 / 80; Pulse 64; Resp 19; Temp 98.4; Pulse Ox 97% on R/A; mr2 06/02 22:30 Body Mass Index 29.76 (76.20 kg, 160.02 cm) [facility] ED Course: 06/02 22:26 Patient arrived in ED. 22:32 Triage completed. aj1 22:32 Arm band placed on. aj1 22:44 Parish Ross, PANKAJ is Primary Nurse. mr2 22:49 Hoang Campbell MD is Attending Physician. 7 23:35 XRAY Chest (1 view) In Process Unspecified. EDMS 06/03 00:30 Jody Byrd MD is Hospitalizing Provider. [facility] 04:03 Primary Nurse role handed off by Parish Ross, PANKAJ bb Administered Medications: 06/02 23:17 Drug: morphine 4 mg Route: IVP; Site: right antecubital; mr2 23:17 Drug: Zofran (Ondansetron) 4 mg Route: IVP; Site: right antecubital; mr2 06/03 02:14 Drug: Lasix (furosemide) 20 mg Route: IVP; Site: left upper arm; mr2 02:14 Drug: Lasix (furosemide) 40 mg Route: IVP; Site: left upper arm; mr2 Outcome: 00:31 Decision to Hospitalize by Provider. christine 04:03 Patient left the ED. jaswinder 10:51 Patient left the ED. Signatures: Dispatcher [employer] EDBriana Giraldo, PANKAJ RN aj1 Sylvie Hopper RN RN bb Madison Champion RN RN ss Hoang Campbell MD MD 7 Krissy Berry Parish Ross RN RN mr2
[2021-06-03 00:33] LABS: Blood Morphology Comment NOT SEEN (NOT SEEN); Platelet Estimate DECR; White Blood Cell Scan OK (OK)
--- NOTE | 2021-06-03 01:04 | P.HP ---
Certification for Inpatient Patient admitted to: Observation With expected LOS: <2 Midnights Patient will require the following post-hospital care: None Practitioner: I am a practitioner with admitting privileges, knowledge of patient current condition, hospital course, and medical plan of care. Services: Services provided to patient in accordance with Admission requirements found in Title 42 Section 412.3 of the Code of Federal Regulations <Davidson Lara - Last Filed: 06/03/21 00:56> Patient History Date of Service: 06/03/21 History of Present Illness: 61-year-old female with history of chronic systolic congestive heart failure, cirrhosis of liver secondary to hepatitis C with hepatic carcinoma, hypertension, hypothyroidism, COPD, diabetes mellitus type 2 presents emergency department for chest pain and dyspnea on exertion. Patient reports increasing shortness of breath, lower extremity edema and dyspnea on exertion over the course of last 3 days. Patient was admitted approximately 1 month ago at [facility] for similar symptoms. Patient reports that she had echocardiogram done at that time but unsure of her ejection fraction. Chest x-ray appears to demonstrate volume overload pattern labs significant for platelets 32 white blood cell count 2.7 hemoglobin 8.7 glucose 292 GFR 45 BNP 2333. ED provider wishes to admit for CHF exacerbation. - Past Medical/Surgical History Diabetic: Yes -: Cirrohsis, hep C, hepatic carcinoma -: Lymphedema -: Diabetes mellitus type 2 -: Glaucoma -: Hypothyroidism -: COPD -: Anxiety -: Chronic systolic congestive heart failure -: Cholecystectomy -: -: Left mastectomy -: Appendectomy -: Hysterectomy Psychosocial/ Personal History: Patient lives at home, alone - Family History Family History: Reviewed- Non-Contributory - Social History Smoking Status: Current every day smoker Counseled patient to stop smoking for: less than 10 minutes Smoking therapy provided: No (Patient declined) Alcohol use: No CD- Drugs: No Caffeine use: Yes Place of Residence: Home <Davidson Lara - Last Filed: 06/03/21 00:56> Date of Service: 06/03/21 <Jody Byrd - Last Filed: 06/03/21 20:20> Allergies acetaminophen [From Darvocet-N 100] Allergy (Verified 07/13/20 17:06) Unknown azithromycin [From Zithromax Z-Darío] Allergy (Verified 07/13/20 17:06) Unknown propoxyphene napsylate [From Darvocet-N 100] Allergy (Verified 07/13/20 17:06) Unknown tramadol Allergy (Verified 07/13/20 17:06) Unknown tramadol HCl [From Ultram] Allergy (Verified 07/13/20 17:06) Unknown Erythromycin Allergy (Mild, Uncoded 07/13/20 17:07) Rash Home Medications: Carvedilol [Coreg] 12.5 mg PO BID 07/21/20 Divalproex Sodium [Depakote] 500 mg PO BID 07/21/20 Furosemide [Lasix] 40 mg PO DAILY 07/21/20 Gabapentin 300 mg PO BID 07/21/20 Insulin Degludec [Tresiba Flextouch U-200] 50 unit SQ DAILY 07/21/20 Insulin Lispro [Humalog*] 10 unit SQ TIDWM 07/21/20 Levothyroxine [Synthroid] 75 mcg PO [id number] 07/21/20 Quetiapine [Seroquel] 300 mg PO BEDTIME 07/21/20 Sacubitril/Valsartan [Entresto 49 mg-51 mg Tablet] 1 tab PO BID 07/21/20 Review of Systems 10-point ROS is otherwise unremarkable Respiratory: Shortness of Breath, SOB with Excertion Cardiovascular: Chest Pain, Edema <Attema,Davidson Middleton Guillaume - Last Filed: 06/03/21 00:56> Physical Examination - Physical Exam General: Alert, In no apparent distress, Oriented x3 HEENT: Atraumatic, PERRLA, Mucous membr. moist/pink, EOMI, Sclerae nonicteric Neck: Supple, 2+ carotid pulse no bruit, No LAD, Without JVD or thyroid abnormality Respiratory: Diminished, Crackles/rales Cardiovascular: Regular rate/rhythm, Normal S1 S2, Edema (1+ pitting edema bilateral lower extremities) Capillary refill: <2 Seconds Gastrointestinal: Normal bowel sounds, No tenderness Musculoskeletal: No tenderness Integumentary: No rashes Neurological: Normal speech, Normal strength at 5/5 x4 extr, Normal tone, Normal affect Lymphatics: No axilla or inguinal lymphadenopathy - Studies Laboratory Data (last 24 hrs) 06/02/21 23:40: PT 12.8 H, INR 1.11 06/02/21 23:40: WBC 2.70 L, Hgb 8.7 L, Hct 26.1 L, Plt Count 32 L* 06/02/21 23:40: Sodium 141, Potassium 3.7, BUN 18, Creatinine 1.23, Glucose 292 H, Magnesium 1.8, Total Bilirubin 0.9, AST 24, ALT 14, Alkaline Phosphatase 97 <Davidson Lara - Last Filed: 06/03/21 00:56> - Studies Laboratory Data (last 24 hrs) 06/02/21 23:40: PT 12.8 H, INR 1.11 06/02/21 23:40: WBC 2.70 L, Hgb 8.7 L, Hct 26.1 L, Plt Count 32 L* 06/02/21 23:40: Sodium 141, Potassium 3.7, BUN 18, Creatinine 1.23, Glucose 292 H, Magnesium 1.8, Total Bilirubin 0.9, AST 24, ALT 14, Alkaline Phosphatase 97 <Jody Byrd - Last Filed: 06/03/21 20:20> Assessment and Plan - Plan Assessment: Dyspnea, chest pain secondary to acute on chronic systolic congestive heart failure Severe thrombocytopenia secondary to cirrhosis of the liver/hepatitis C/hepatic carcinoma Anemia of chronic disease Diabetes mellitus type 2 with hyperglycemia Hypertension Hypothyroidism Plan: Dyspnea, chest pain secondary to acute on chronic systolic congestive heart failure: Patient takes Lasix 40 g p.o. twice daily at home will increase to Lasix 40 mg IV 3 times daily at this time, will obtain echocardiogram that was performed less than a month ago at [facility] and consult cardiology. Continue patient on medication Entresto, patient unsure of other medications will need to obtain and continue as appropriate. 1500 cc/day fluid restriction, daily weigh ts. Severe thrombocytopenia secondary to cirrhosis of the liver/hepatitis C/hepatic carcinoma: SCD for DVT prophylaxis, patient being monitored at [facility] reports that she is not a candidate for any other forms of treatment including transplant. Anemia of chronic disease: Transfuse to maintain hemoglobin greater than 8 given acute on chronic systolic congestive heart failure and other comorbidities. Diabetes mellitus type 2 with hyperglycemia: A [facility] Accu-Chek, sliding scale insulin. A1c with morning labs. Hypertension: Obtain and continue medications Hypothyroidism: Obtain continue medication, thyroid panel with morning lab DVT PPX: SCDs given thrombocytopenia Code status: Full code Discharge Plan: Home Plan to discharge in: 24 Hours - Advance Directives Does patient have a Living Will: No Does patient have a Durable POA for Healthcare: No - Code Status/Comfort Care Code Status Assessed: Yes (Full code) Critical Care: No Time Spent Managing Pts Care (In Minutes): 55 <Davidson Lara - Last Filed: 06/03/21 00:56> Date of Service: 06/03/21 Subjective: Agree with the HPI as above Physical Examination: Vitals: Afebrile vital signs are stable Physical exam: Cardiovascular: Within normal limits. Lungs: Within normal limits Abdomen: Within normal limits Neuro: Awake, alert, oriented to person place and time Assessment: 1. Shortness of breath 2. Pancytopenia 3. Hepatocellular carcinoma Plan: 1. Continue with current plan of care as mentioned above <Jody Byrd - Last Filed: 06/03/21 20:20>
[2021-06-03] MEDS ORDERED: FUROSEMIDE 40 MG/4 ML VIAL ONE ×2 (02:09→07:47)
[2021-06-03] MEDS ORDERED: FUROSEMIDE 20 MG/ 2ML VIAL ONE (02:09)
[2021-06-03] MEDS ORDERED: ALBUTEROL INHALER 60 PUFF/8 GM IH PRN (04:32)
[2021-06-03] MEDS ORDERED: ONDANSETRON 4 MG/2 ML VIAL IV PRN (04:32)
[2021-06-03 04:54] LABS: Urine Blood 3+ (Negative); Urine Glucose 1+ (Negative); Urine Protein 2+ (Negative); Urine Specific Gravity 1.025 (1.005-1.030)
[2021-06-03 05:18] LABS: Urine Appearance CLEAR (Clear); Urine Bacteria 20-50 /HPF (<20); Urine Bilirubin NEGATIVE (Negative); Urine Blood 3+ (Negative); Urine Color YELLOW (Yellow); Urine Glucose 1+ (Negative); Urine Microscopic Reflex ORDER UMIC; Urine Mucus 1+ /HPF (NONE SEEN); Urine Protein 2+ (Negative); Urine RBC 20-50 /HPF (NONE SEEN)
[2021-06-03 05:23] VITALS: BMI 29.7
[2021-06-03 07:14] LABS: Basophils % 0.4 % (0-1.3); Hematocrit 28.5 % (36.0-45.0); Lymphocytes % 34.5 % (15.3-44.8)
[2021-06-03] MEDS ORDERED: INSULIN -REGULAR HUMAN 50 UNIT/0.5 ML ML SQ SCH (07:30)
[2021-06-03 07:46] LABS: HDL Cholesterol 28 mg/dL (40-60); LDL Cholesterol, Calculated 85 (<130); Troponin I < 0.02 ng/mL (0.0-0.045)
[2021-06-03 08:12] VITALS: BP 148/78
--- NOTE | 2021-06-03 08:18 | RAD REPORT ---
EXAM DESCRIPTION: RAD - Chest Single View - 06/02/2021 11:36 pm CLINICAL HISTORY: SOB COMPARISON: January 2020 TECHNIQUE: AP portable chest image was obtained 06/02/2021 11:36 pm . FINDINGS: Lung volumes are low accentuating interstitial pattern. Stranding in each lung base is fav ored to be atelectasis. A mild interstitial edema or infiltrate is possible. Small pleural effusions are suspected. Heart size is normal. No pneumothorax seen. No acute bony abnormality seen. No acute a ortic findings suspected. IMPRESSION: Vasculature and interstitial markings are prominent at least partly due to shallow inspi ration atelectasis. Early edema or interstitial infiltrate suspected. Small pleural effusions are suspected.
[2021-06-03] MEDS ORDERED: MORPHINE 2 MG/ML SYR IV PRN (08:40)
[2021-06-03] MEDS ORDERED: MORPHINE 2 MG/ML SYR ONE (08:49)
[2021-06-03] MEDS ORDERED: FUROSEMIDE 40 MG/4 ML VIAL IV SCH (09:00)
[2021-06-03] MEDS ORDERED: SACUBITRIL/VALSARTAN 49/51 MG TAB PO SCH (09:00)
[2021-06-03 09:43] VITALS: TEMP 97.7; O2SAT 95
--- NOTE | 2021-06-03 20:21 | P.DS ---
Discharge Date: 06/03/21 Disposition: AMA-LEFT AGAINST MEDICAL ADVIC Brief History of Present Illness: 61-year-old female with history of chronic systolic congestive heart failure, cirrhosis of liver secondary to hepatitis C with hepatic carcinoma, hypertension, hypothyroidism, COPD, diabetes mellitus type 2 presents emergency department for chest pain and dyspnea on exertion. Patient reports increasing shortness of breath, lower extremity edema and dyspnea on exertion over the course of last 3 days. Patient was admitted approximately 1 month ago at [facility] for similar symptoms. Patient reports that she had echocardiogram done at that time but unsure of her ejection fraction. Chest x-ray appears to demonstrate volume overload pattern labs significant for platelets 32 white blood cell count 2.7 hemoglobin 8.7 glucose 292 GFR 45 BNP 2333. ED provider wishes to admit for CHF exacerbation. Hospital Course: Patient was feeling much better. Patient respiratory status has improved. Patient decided to leave against medical advice. Vital Signs/Physical Exam: Temp Pulse Resp BP Pulse Ox 97.7 F 61 18 148/78 H 100 06/03/21 08:00 06/03/21 08:11 06/03/21 09:20 06/03/21 08:11 06/03/21 09:20 General: Alert, In no apparent distress, Oriented x3 Laboratory Data at Discharge: WBC 2.80 K/uL (4.3-10.9) L 06/03/21 06:48 Hgb 9.3 g/dL (12.0-15.0) L 06/03/21 06:48 Hct 28.5 % (36.0-45.0) L 06/03/21 06:48 Plt Count 34 K/uL (152-406) L* 06/03/21 06:48 PT 12.8 SECONDS (9.5-12.5) H 06/02/21 23:40 INR 1.11 06/02/21 23:40 Sodium 141 mmol/L (136-145) 06/02/21 23:40 Potassium 3.7 mmol/L (3.5-5.1) 06/02/21 23:40 BUN 18 mg/dL (7-18) 06/02/21 23:40 Creatinine 1.23 mg/dL (0.55-1.3) 06/02/21 23:40 Glucose 292 mg/dL (74-106) H 06/02/21 23:40 Magnesium 1.8 mg/dL (1.8-2.4) 06/02/21 23:40 Total Bilirubin 0.9 mg/dL (0.2-1.0) 06/02/21 23:40 AST 24 U/L (15-37) 06/02/21 23:40 ALT 14 U/L (12-78) 06/02/21 23:40 Alkaline Phosphatase 97 U/L (45-117) 06/02/21 23:40 Troponin I Cancelled 06/03/21 13:00 Triglycerides 155 mg/dL (<150) H 06/03/21 06:48 Cholesterol 144 mg/dL (<200) 06/03/21 06:48 HDL Cholesterol 28 mg/dL (40-60) L 06/03/21 06:48 Cholesterol/HDL Ratio 5.14 06/03/21 06:48 Home Medications: Carvedilol [Coreg] 12.5 mg PO BID 07/21/20 Divalproex Sodium [Depakote] 500 mg PO BID 07/21/20 Furosemide [Lasix] 40 mg PO DAILY 07/21/20 Gabapentin 300 mg PO BID 07/21/20 Insulin Degludec [Tresiba Flextouch U-200] 50 unit SQ DAILY 07/21/20 Insulin Lispro [Humalog*] 10 unit SQ TIDWM 07/21/20 Levothyroxine [Synthroid] 75 mcg PO [id number] 07/21/20 Quetiapine [Seroquel] 300 mg PO BEDTIME 07/21/20 Sacubitril/Valsartan [Entresto 49 mg-51 mg Tablet] 1 tab PO BID 07/21/20 Physician Discharge Instructions: Patient left against medical advice Followup: Grace Phillips [Primary Care Provider] - Time spent managing pt's care (in minutes): 35
--- NOTE | 2021-06-06 08:13 | EKG ---
Test Date: 2021-06-03 Test Time: 09:20:30 Activity Coordinator: TAYLER MEASUREMENT RESULTS: Intervals: Rate: 63 AR: 160 QRSD: 126 QT: 500 QTc: 511 Muse: P: 35 AR: 160 QRS: 17 T: 88 INTERPRETIVE STATEMENTS: Normal sinus rhythm Left bundle branch block Abnormal ECG Compared to ECG 06/02/2021 23:28:21 Left bundle-branch block now present Left ventricular hypertrophy no longer present ST (T wave) deviation no longer present Prolonged QT interval no longer present Electronically Signed On 06-06-21 08:04:19 DRY PAN CHARGER by Serg Tamayo
--- NOTE | 2021-06-06 08:14 | EKG ---
Test Date: 2021-06-02 Test Time: 23:28:21 Building Performance Specialist: FERNANDO MEASUREMENT RESULTS: Intervals: Rate: 81 MI: 170 QRSD: 118 QT: 426 QTc: 494 Webb: P: 18 MI: 170 QRS: 6 T: 0 INTERPRETIVE STATEMENTS: Normal sinus rhythm Left ventricular hypertrophy with QRS widening Nonspecific ST abnormality Prolonged QT Abnormal ECG Compared to ECG 06/02/2021 23:27:35 Prolonged QT interval now present Possible ischemia no longer present ST (T wave) deviation still present Electronically Signed On 06-06-21 08:04:28 CHAIN PERSON by Serg Tamayo
--- NOTE | 2021-06-06 08:14 | EKG ---
Test Date: 2021-06-02 Test Time: 23:27:35 Credit Operations Processor: FERNANDO MEASUREMENT RESULTS: Intervals: Rate: 80 ME: 162 QRSD: 120 QT: 448 QTc: 516 [place]: P: -7 ME: 162 QRS: 13 T: 27 INTERPRETIVE STATEMENTS: Normal sinus rhythm Left ventricular hypertrophy with QRS widening ST & T wave abnormality, consider lateral ischemia Abnormal ECG Compared to ECG 01/31/2019 20:58:53 Left ventricular hypertrophy now present ST (T wave) deviation now present Possible ischemia now present Left bundle-branch block no longer present Electronically Signed On 06-06-21 08:04:29 [employer] by Serg Tamayo
== END 2021-06-03 10:55 | disposition left against medical advice (07) ==
LOC: ER 22:23 → ERHOLD 06-03 00:48
PROVIDERS: ADMIT Hospitalist; ATTEND Hospitalist
DX: I11.0 Hypertensive heart disease with heart failure (principal); I50.23 Acute on chronic systolic (congestive) heart failure; D69.6 Thrombocytopenia, unspecified; K74.60 Unspecified cirrhosis of liver; B19.20 Unspecified viral hepatitis C without hepatic coma; C22.0 Liver cell carcinoma; E03.9 Hypothyroidism, unspecified; J44.9 Chronic obstructive pulmonary disease, unspecified; Z53.29 Procedure and treatment not carried out because of patient's decision for other reasons; Z20.822 Contact with and (suspected) exposure to COVID-19
CPT/HCPCS: 93005 ×3; 87088; 85025 ×2; 87086; 80048; 36415; 83735; 85610; 80061; 82947; 80076; 84443; 87077; 87186; 83036; 84484 ×2; 84439; 83880; 71045; 99283; U0003; J1940 ×3; J2270; J2405; G0378 ×2; 81003; 81015

== ENCOUNTER 2021-07-10 10:42 | Inpatient (IN) | payer OTHER ==
--- OUTSIDE RECORDS SUMMARY | 2021-07-10 11:15 | XMS REPORT | Continuity of Care Document ---
:1960 Author Organization [facility] t Address [address] [place] [address] Care Team Providers Name Role Phone Asked, Pcp Primary Care Physician Unavailable SYSTEM, NOT IN Attending Clinician Unavailable Alex MERIDA Attending Clinician Unavailable Singer HIDALGO Attending Clinician Alex Merida MD Attending Clinician NANCY Attending Clinician Unavailable DAMIAN Attending Clinician Unavailable Ronald LIRA Attending Clinician Heber Hall DO Attending Clinician Dyllan HIDALGO Attending Clinician Judy BAUMAN Attending Clinician Mallory JANSEN Attending Clinician Unavailable ROSAS ESPARZA Attending Clinician Unavailable Sanam SIMENTAL Attending Clinician Unavailable STANISLAW Attending Clinician Unavailable Tracie LIGHT Attending Clinician Unavailable Monica ELI III Attending Clinician Unavailable Elliott FALCON, S Attending Clinician Chito Barros Attending Clinician Momo BAUMAN H Attending Clinician MARTI Attending Clinician Unavailable Lab, Fam Pob I Attending Clinician Unavailable Marti ABARCAP Attending Clinician Monica Harry NP Attending Clinician Doctor Unassigned, Name Attending Clinician Unavailable LOLIS GARCIA Attending Clinician Unavailable Jim RDZ Attending Clinician Unavailable Kajal GUERRERO, T Attending Clinician KOREY Attending Clinician Unavailable Attending Clinician Unavailable LENKA TAPIA Attending Clinician Unavailable Elise GLOVER R Attending Clinician Mihai GUERRERO Attending Clinician Jaun BAUMAN Attending Clinician Tiffanie BAUMAN, P Attending Clinician Lenka Tapia DO Attending Clinician Naomie Soria MD Attending Clinician Naomie SORIA Attending Clinician Unavailable Greg Pedroza Main Attending Clinician Unavailable Gabe LIRA Attending Clinician Unavailable CRISTINA Attending Clinician Unavailable Jer GUERRERO Attending Clinician Cristina BAUMNA Attending Clinician RADIOLOGY Attending Clinician Unavailable LIZA BARTH Attending Clinician Unavailable JOSÉ Attending Clinician Unavailable Deshawn CAMPOS Attending Clinician Unavailable Admitting Clinician Unavailable KOBE LEONARD Admitting Clinician Unavailable Judy BAUMAN Admitting Clinician YARI Admitting Clinician Unavailable CORNELIUS Admitting Clinician Unavailable ROSAS ESPARZA Admitting Clinician Unavailable Jim RDZ Admitting Clinician Unavailable JAUN Admitting Clinician Unavailable Jaun BAUMAN Admitting Clinician Naomie SORIA Admitting Clinician Unavailable CRISTINA Admitting Clinician Unavailable Cristina BAUMAN Admitting Clinician Chito BARROS Admitting Clinician Unavailable JOSÉ Admitting Clinician Unavailable Payers Payer Name Policy Type Policy Number Effective Date Expiration Date S kristan [facility] [place] STAR [id number] 2019 PLUS 00:00:00 MEDICARE PART A [id number] 2006 \\T\\ B 00:00:00 MEDICAID [facility] [id number] 2018 00:00:00 [facility] MEDICARE [id number] 2021 COMPLETE CHOICE 00:00:00 [facility] MEDICARE [id number] 2020 MEDICAID DUAL HMO 00:00:00 MEDICAID ID [id number] 2016 TRADITIONAL STAR 00:00:00 PLUS SSI MEDICARE PART A [id number] 2006 AND B 00:00:00 [employer] [id number] 2017 NAMITA Shirley s 00:00:00 [facility] [employer] Star [id number] 2016 NAMITA Luo Plus 00:00:00 [facility] Problems [...] Acute Acute Disease Active Univers respirator respirator 04-03 it y of y failure y failure [...] U nasima thomas 1-18 ity of 00:00: [place] 00 Medical Branch Cirrhosis Cirrhosis Disease Active Last [facility] 00:00: t & Plan: Medical [address] [facility] g of this note might be different from the original. Diagnosis based on the laborator y parameter s and imaging. 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 Cirrhosis guideline s reviewed. Hepatocell Hepatocell Disease Active Last [facility] ular ular 2 Assessmen [facility] - carcinoma carcinoma 00:00: t & Plan: M edical [address] [facility] g of this note might be [...] Active [facility]: t & Plan: Medic al [address] [facility] g of this note might be different from the original. All patients with chronic liver disease should be immunized to prevent hepatitis A and hepatitis B. Previous serology indicates immunity to HAV. Recommend HBV booster which can be provided by primary care. Hepatitis Hepatitis Disease Active Last [facility] 2-[facility] - 00:00: t & Plan: Medical [address] [place] [address] g of this note might be different from the original. HCV diagnosed in 1998 s/p partial treatment with Interfero n / Ribavirin . HCV RNA December 2017 was undetecta ble. No further intervent ion necessary . Chronic Chronic Disease Active [facility] hepatitis 00:00: t & [...] & Plan: M edical wall wall [address] [facility] g of this note might be different from the original. She has an umbilical hernia that is being evaluated for repair. She has a 34% one year mortality based on the Sebastian surgical risk score. In addition, she is Child-Pug h Class A giving her a 10% abdominal surgery colton-oper ative mortality risk. Heart Heart Disease Active Last [facility] St murmur murmur 2- [facility] - 00:00: t & Plan: Medical [address] [place] [address] g of this note might be different from the original. Physical examinati on revealed an audible fixed S2 split on cardiac examinati on which may be secondary to a bundle branch block. We recommend cardiolog y consultat ion prior to procedure . Lower Lower Disease Active Last [facility] St extremity extremity 2-21 Assessmen L ukes - edema edema 00:00: t & Plan: Medical [address] [place] [address] g of this note might be different [...] Chest pain Problem Active C [facility] - Patient [facility] Allergies, Adverse Reactions, Alerts Allergy Allergy Status Severity Reaction(s) Onset Inactive Treating Comm ents Source Name Type Date Date Clinician KETOROLA DRUG Active Med Rash Univers C INGREDI 5-19 ity of 00:00: [place] 00 Medical Branch Ketorola Propensi Active Rash Univer s c ty to 5-19 ity of adverse 00:00: [place] reaction 00 Medical s Branch ONDANSET DRUG Active ITCHING 2019-0 Univers SAIMA INGREDI 4- ity of 00:00: [place] 00 Medical Branch Ondanset Propensi Active Itching 2019-0 Unive rs saima ty to 4-28 ity of adverse 00:00: [place] reaction 00 Medical s Branch Erythrom Propensi Active [address] [facility] ty to 09-03 [facility] - adverse 00:00: Medical reaction 00 Center s Ketorola Propensi Active [address] [facility] ty to 09-03 [facility] - adverse 00:00: Medical reaction 00 L[place] s PROPOXYP DRUG Active Other-Cmnt 0 Univ ers HENE 8-08 ity of N-ACETAM 00:00: [place] INOPHEN 00 Medical Branch TRAMADOL DRUG Active Other-Cmnt 0 Univ ers INGREDI 8 ity of 00:00: [place] 00 Medical Branch AZITHROM DRUG Active Rash 2018-0 Univers YCIN INGREDI 8 ity of 00:00: [place] 00 Medical Branch Propoxyp Propensi Active Other - See 2018-0 migraine Univers hene ty to comments 8- ity of N-Acetam adverse 00:00: [place] inophen reaction 00 Medical s Branch Tramadol Propensi Active Other - See 2018-0 Anxious Univers ty to comments 8-08 ity of adverse 00:00: [place] reaction 00 Medical s Branch Azithrom Propensi Active Rash 2018-0 Univer s ycin ty to 8-08 ity of adverse 00:00: [place] reaction 00 Medical [facility] Propoxyp Allergy Active Migraines 2017-[address] [facility] [facility] to 01-06 [facility] - Substanc 00:00: Patient e 00 [facility] Azithrom Allergy Active Rash 2017-[address] [facility] ycin to 01-06 [facility] - Substanc 00:00: Patient e 00 [facility] Tramadol Allergy Active Insomnia for 2016-[address] to days 01-06 [facility] - Substanc 00:00: Patient e 00 [facility] PROPOXYP DRUG Active 0 MD TIWARI 5-18 [...] [facility] Reaction Available [facility] Zithroma Adverse Active Info Not [facility] t x Reaction Available [facility] Tramadol Adverse Active Info Not [facility] t HCl Reaction Available [facility] Erythrom Adverse Active Info Not [facility]I S t ycin Reaction Available [facility] Demerol Adverse Active Info Not [facility] Reaction Available [facility] Darvocet Adverse Active Info Not [facility]I S t -N 100 Reaction Available [facility] Azithrom Adverse Active Info Not [facility]I S t ycin Reaction Available [facility] Social History Social Habit Start Date Stop Date Quantity Comments Source History SDOH [facility] Hospit al History SDOH [facility] Exposure to Not sure University of SARS-CoV-2 (event) [facility] History SDOH [facility] - Alcohol Comment Medical C enter History of tobacco Cigarette Sm[facility] use [facility] Alcohol intake 2021-06-14 2021-06-14 Ex-drinker University 00:00:00 00:00:00 (finding) [facility] Tobacco use and 2019-07-31 2019-07-31 Never used Universit y of exposure 00:00:00 00:00:00 [facility] History SDOH 2019-06-08 2019-06-08 1 [facility] Alcohol Frequency 00:00:00 00:00:00 Hospita l Cigarettes smoked 2018-09-03 2018-09-[address] [facility] - current (pack per 00:00:00 00:00:00 Medical Center day) - Reported Cigarette 2018-09-03 2018-09-[address] [facility] - pack-years 00:00:00 00:00:00 [facility] Sex Assigned At [birth year] Universit y of 00:00:00 00:00:00 [facility] Smoking Status Start Date Stop Date Source Current every day smoker 2019-06-08 00:00:00 Met [facility] Medications Ordered Filled Start Stop Current Ordering Indication Dosage Frequency Signature Comments Components Source Medication Medication Date Date Medication? Clinician (SIG) Name Name magnesium 2020-07 Yes 400mg 400 mg, Univ ers oxide 08-16 Oral, ity of (MAG-OX 15:00: DAILY, [place] 400) tablet 00 First dose Me dical 400 mg on Fri Branch 06/15/21 at 0900, Until Discontinu ed, Routine furosemide 2020-07- No 40mg 40 mg, IV U nivers (LASIX) 08-16 Push, ity of injection 03:30: 02:34 ONCE, 1 [place] 40 mg 00 :00 dose, [facility] 06/14/21 at 2130, ESSIE iopamidol 2020-07- No [id number] 100mL 100 mL, Univers (ISOVUE 08-16 Intravenou ity o f 370-500 mL) 02:00: 00:40 s, ONCE, 1 [place] injection 00 :00 dose, On Medica l 100 mL [facility] Branch 06/14/21 at 2000, Routine morpHINE 2020-07- No 2mg 2 mg, Slow Un ale injection 2 08-16 IV Push, ity of mg 00:16: 00:18 ONCE, 1 [place] 00 :00 dose, On [facility] 06/14/21 at 1830, STAT furosemide 2020-07 Yes [id number] 40mg Take 1 Univers (LASIX) 40 -02 tablet by ity of mg tablet 00:00: mouth [place] 00 daily. Medical Branch polyethylen 2020- No [id number] 17g Take 1 Univers e glycol 9-28 10-29 Packet by ity o f 3350 17 00:00: 04:59 mouth [place] gram powder 00 :00 daily for Med ical 30 days. Branch spironolact 2020- No [id number] 25mg Take 1 Univers one 25 mg 9-28 10-29 tablet by ity of tablet 00:00: 04:59 mouth [place] 00 :00 daily for Medical 30 days. Branch polyethylen 2020- No [id number] 17g Take 1 Univers e glycol 04-10-29 Packet by ity o f 3350 17 00:00: 04:59 mouth [place] gram powder 00 :00 daily for Med ical 30 days. Branch spironolact 2020- No [id number] 25mg Take 1 Univers one 25 mg 04-10- tablet by ity of tablet 00:00: 04:59 mouth [place] 00 :00 daily for Medical 30 days. Branch QUEtiapine 2020- No 350mg Take 350 U nivers (SEROQUEL) 04-09 mg by ity of 300 mg 14:59: 00:00 mouth at [place] tablet 37 :00 bedtime. Medical Branch carvediloL 2020- No 6.25mg Take 6.25 Univers 6.25 mg 04-09 mg by ity of tablet 14:59: 00:00 mouth 2 [place] 37 :00 (two) Medical times Branch daily with meals. sacubitril- 2020- No 1{tbl} Take 1 U nivers valsartan 04-09 tablet by ity of (ENTRESTO) 14:59: 00:00 mouth 2 [place] as 49-51 mg 37 :00 (two) Medical tablet times Branch daily. insulin 2020- No 30U inject 30 Univ ers aspart 04-09 Units ity of prot/insuln 14:59: 00:00 under the [place] asp 37 :00 skin 3 Medical (NOVOLOG (three) Branch MIX 70-30 times SC) daily. potassium 2020- No 40meq Take 40 Uni vers chloride 04-09 mEq by ity of (KCL-20 14:59: 00:00 mouth at [place] ORAL) 37 :00 bedtime. Medical Branch furosemide 2020- No 80mg Take 80 mg Univers (LASIX) 40 04-09 by mouth ity of mg tablet 14:59: 00:00 daily. [place] 37 :00 Medical Branch KCL 2020- No 40meq 40 mEq, Univers (KLOR-CON 04-09 Oral, ity of M20) tablet 14:45: 14:18 ONCE, 1 [place] 40 mEq 00 :00 dose, On Medical Mon Branch 04/09/21 at 0945, Routine methadone 5 2020- No 140mg Take 140 Univers mg tablet 04-09- mg by ity of 14:08: 00:00 mouth [place] 21 :00 daily. Medical Branch albuterol Yes [id number] 2{puff} Inhale 2 Univers 90 9-27 Puffs ity of mcg/actuati 00:00: every 4 [place] on inhaler 00 (four) Medical hours as Branch needed for Wheezing or Shortness of Breath. Insulin Asp Yes inject Univ ers Prt-Insulin 04-09 under the ity of Aspart 00:00: skin. [place] (NOVOLOG 00 Medical MIX 70-30) Branch 100 unit/mL (70-30) injection albuterol Yes [id number] 2{puff} Inhale 2 Univers 90 9-27 Puffs ity of mcg/actuati 00:00: every 4 [place] on inhaler 00 (four) Medical hours as Branch needed for Wheezing or Shortness of Breath. Insulin Asp Yes inject Univ ers Prt-Insulin 04-09 under the ity of Aspart 00:00: skin. [place] (NOVOLOG 00 Medical MIX 70-30) Branch 100 unit/mL (70-30) injection albuterol Yes [id number] 2{puff} Inhale 2 Univers 90 9-27 Puffs ity of mcg/actuati 00:00: every 4 [place] on inhaler 00 (four) Medical hours as Branch needed for Wheezing or Shortness of Breath. Insulin Asp Yes inject Univ ers Prt-Insulin 04-09 under the ity of Aspart 00:00: skin. [place] (NOVOLOG 00 Medical MIX 70-30) Branch 100 unit/mL (70-30) injection methadone 2020- No [id number] 140mg Take 14 Uni vers 10 mg 04-09 10-28 tablets by ity of tablet 00:00: 04:59 mouth [place] 00 :00 daily for Medical 30 days. Branch Indication s: chronic pain carvediloL 2020- No [id number] 12.5mg Take 1 Univers 12.5 mg 9-27 10-28 tablet by ity of tablet 00:00: 04:59 mouth 2 [place] 00 :00 (two) Medical times Branch daily with meals for 30 days. divalproex 2020- No [id number] 250mg Take 1 Univers ER 250 mg 9-27 10-28 tablet by ity of 24 hr 00:00: 04:59 mouth at [place] tablet 00 :00 bedtime Medical for 30 Branch days. docusate 2020- No [id number] 100mg Take 1 Univers 100 mg 9-27 10-28 capsule by ity of capsule 00:00: 04:59 mouth 2 [place] 00 :00 (two) Medical times Branch daily for 30 days. furosemide 2020- No [id number] 80mg Take 2 Univers (LASIX) 40 9-27 10-28 tablets by it y of mg tablet 00:00: 04:59 mouth [place] 00 :00 daily for Medical 30 days. Branch KCL 20 mEq 2020- No [id number] 40meq Take 2 Univers tablet 9-27 10-28 tablets by ity of 00:00: 04:59 mouth [place] 00 :00 daily for Medical 30 days. Branch QUEtiapine 2020- No [id number] 300mg Take 1 Univers 300 mg 9-27 10-28 tablet by ity of tablet 00:00: 04:59 mouth at [place] 00 :00 bedtime Medical for 30 Branch days. rifAXIMin 2020- No [id number] 550mg Take 1 Univers 550 mg 9-27 10-28 tablet by ity of tablet 00:00: 04:59 mouth 2 [place] 00 :00 (two) Medical times Branch daily for 30 days. sacubitriL- 2020- No [id number] 2{tbl} Take 2 Univers valsartan 9-27 10-28 tablets by ity of 24-26 mg 00:00: 04:59 mouth 2 [place] tablet 00 :00 (two) Medical times Branch daily for 30 days. sennosides 2020- No [id number] 8.6mg Take 1 Univers 8.6 mg 9-27 10-28 tablet by ity of tablet 00:00: 04:59 mouth 2 [place] 00 :00 (two) Medical times Branch daily for 30 days. methadone 2020- No [id number] 140mg Take 14 Uni vers 10 mg 9-27 10-28 tablets by ity of tablet 00:00: 04:59 mouth [place] 00 :00 daily for Medical 30 days. Branch Indication s: chronic pain carvediloL 2020- No [id number] 12.5mg Take 1 Univers 12.5 mg 9-27 10-28 tablet by ity of tablet 00:00: 04:59 mouth 2 [place] 00 :00 (two) Medical times Branch daily with meals for 30 days. divalproex 2020- No [id number] 250mg Take 1 Univers ER 250 mg 9-27 10-28 tablet by ity of 24 hr 00:00: 04:59 mouth at [place] tablet 00 :00 bedtime Medical for 30 Branch days. docusate 2020- No [id number] 100mg Take 1 Univers 100 mg 9-27 10-28 capsule by ity of capsule 00:00: 04:59 mouth 2 [place] 00 :00 (two) Medical times Branch daily for 30 days. furosemide 2020- No [id number] 80mg Take 2 Univers (LASIX) 40 9-27 10-28 tablets by it y of mg tablet 00:00: 04:59 mouth [place] 00 :00 daily for Medical 30 days. Branch KCL 20 mEq 2020- No [id number] 40meq Take 2 Univers tablet 9-27 10-28 tablets by ity of 00:00: 04:59 mouth [place] 00 :00 daily for Medical 30 days. Branch QUEtiapine 2020- No [id number] 300mg Take 1 Univers 300 mg 9-27 10-28 tablet by ity of tablet 00:00: 04:59 mouth at [place] 00 :00 bedtime Medical for 30 Branch days. rifAXIMin 2020- No [id number] 550mg Take 1 Univers 550 mg 9-27 10-28 tablet by ity of tablet 00:00: 04:59 mouth 2 [place] 00 :00 (two) Medical times Branch daily for 30 days. sacubitriL- 2020- No [id number] 2{tbl} Take 2 Univers valsartan 9-27 10-28 tablets by ity of 24-26 mg 00:00: 04:59 mouth 2 [place] tablet 00 :00 (two) Medical times Branch daily for 30 days. sennosides 2020- No [id number] 8.6mg Take 1 Univers 8.6 mg 9-27 10-28 tablet by ity of tablet 00:00: 04:59 mouth 2 [place] 00 :00 (two) Medical times Branch daily for 30 days. HYDROcodone 2020- No [id number] 1{tbl} Take 1 U nivers -acetaminop 9-27 10-05 tablet by it y of hen 10-325 00:00: 04:59 mouth [place] mg tablet 00 :00 every 6 Medical (six) Branch hours as needed for Pain (scale 7-10) for up to 7 days. Indication s: acute pain HYDROcodone 2020- No [id number] 1{tbl} Take 1 U nivers -acetaminop 9-27 10-05 tablet by it y of hen 10-325 00:00: 04:59 mouth [place] mg tablet 00 :00 every 6 Medical (six) Branch hours as needed for Pain (scale 7-10) for up to 7 days. Indication s: acute pain methadone Yes 140mg 140 mg, Univ ers (DOLOPHINE - Oral, ity of HCL) tablet 14:00: DAILY, [place] 140 mg 00 First dose Medical on Sat Branch 04/07/21 at 0900, Until Discontinu ed, Routine divalproex Yes 250mg 250 mg, Uni vers ER - Oral, QHS, ity of (DEPAKOTE 02:00: First dose [place] ER) 24 hr 00 on Fri Medical tablet 250 04/06/[address] [facility] mg 2100, Until Discontinu ed, Routine methadone No 20mg 20 mg, Unive rs (DOLOPHINE 04-06 Oral, ity of HCL) tablet 15:30: 16:56 ONCE, 1 [place] 20 mg 00 :00 dose, On Medical Fri Branch 04/06/21 at 1030, Routine methadone 2020- No 120mg 120 mg, Uni vers (DOLOPHINE 04-05 Oral, ity of HCL) tablet 22:00: 15:25 DAILY, [place] 120 mg 00 :02 First dose Medical on [place] Branch 04/05/21 at 1700, Until Discontinu ed, Routine polyethylen Yes 17g 17 g, Unive rs e glycol 04-05 Oral, ity of 3350 powder 21:45: DAILY, [place] 17 g 00 First dose Medical on [place] Branch 04/05/21 at 1645, Until Discontinu ed, Routine polyethylen No 17g 17 g, Univ ers e glycol 04-05 Oral, ity of 3350 powder 21:45: 22:43 DAILY, 3 [place] 17 g 00 :31 doses, Medical First dose Branch (after last reorder) on [place] 04/05/21 at 1645, Last dose on [facility] 04/07/21 at 0900, Routine LACTULOSE No 30mg Take 30 mg U nivers ORAL 04-05 by mouth 2 ity of 16:44: 00:00 (two) [place] 19 :00 times Medical daily. Branch HYDROcodone 2020- No 1{tbl} Take 1 U nivers -acetaminop 04-05 tablet by it y of hen 10-325 16:44: 00:00 mouth [place] mg tablet 19 :00 every 4 Medical (four) Branch hours as needed. methadone 5 No 10mg Take 10 mg Univers mg tablet 04-05 by mouth 3 ity of 16:44: 00:00 (three) [place] 19 :00 times Medical daily. Branch magnesium No 4g 4 g, IV Univ ers sulfate in 04-05 Piggyback, it y of water 4 14:30: 14:04 ONCE, 1 [place] gram/50 mL 00 :00 dose, On Medic al (8 %) IV [place] Branch Piggyback 4 04/05/21 at g 0930, Routine KCL No 40meq 40 mEq, Univers (KLOR-CON 04-05 Oral, ity of M20) tablet 14:30: 14:03 ONCE, 1 [place] 40 mEq 00 :00 dose, On Medical [place] Branch 04/05/21 at 0930, Routine sacubitriL- Yes 2{tbl} 2 tablet, [facility] valsartan 04-04 Oral, BID, ity of (ENTRESTO) 14:45: First dose [place] 24-26 mg 00 on Fri Medical tablet 2 04/04/21 at [facility] h tablet 0945, Until Discontinu ed, Routine
faculty member approving Restricted medication : [facility] cefTRIAXone 2020- No 1000mg 1,000 mg, [facility] (ROCEPHIN) 04-04 IV ity of 1,000 mg in 04:45: 05:44 Piggyback, [place] NaCl 0.9% 00 :00 Q24H ABX, Medic [...] s mg 00 First dose Medical on [facility] 04/03/21 at 2300, Until Discontinu ed, Routine spironolact Yes 25mg 25 mg, Univ ers one 04-04 Oral, ity of (ALDACTONE) 04:00: DAILY, [place] tablet 25 00 First dose Medi javier mg on [facility] 04/03/21 at 2300, Until Discontinu ed, Routine QUEtiapine Yes 300mg 300 mg, Uni vers (SEROQUEL) 04-04 Oral, QHS, ity of tablet 300 04:00: First dose [place] mg 00 on [facility] 04/03/21 at Branch 2300, Until Discontinu ed, Routine divalproex 2020- No 250mg 250 mg, Un ale ER 04-04 Oral, QHS, ity of (DEPAKOTE 04:00: 22:03 First dose [place] ER) 24 hr 00 :12 on Fri Medical tablet 250 04/03/[address] [facility] mg 2300, Until Discontinu ed, Routine insulin 0 2020- No 30U 30 Units, [facility] ers glargine 04-04 Subcutaneo ity of (LANTUS 04:00: 13:20 us, BID, [place] U-100) 00 :25 First dose Medical injection on Fri Branch 30 Units 04/03/21 at 2300, Until Discontinu ed, Routine rifAXIMin 0 Yes 550mg 550 mg, [facility] ers (XIFAXAN) 04-04 Oral, BID, ity of tablet 550 03:45: First dose [place] mg 00 on [facility] 04/03/21 at Branch 2245, Until Discontinu ed, Routine
Reason for Anti-Infec tive: Empiric Therapy for Suspected Infection< br>Empiric Therapy Site: Abdominal< br>Duratio n of therapy: 7 days sennosides Yes 8.6mg 8.6 mg, Uni vers (SENOKOT) 04-04 Oral, BID, ity of tablet 8.6 03:45: First dose [place] mg 00 on [facility] 04/03/21 at Branch 2245, Until Discontinu ed, Routine docusate Yes 100mg 100 mg, [facility] rs (COLACE) 04-04 Oral, BID, ity o f capsule 100 03:45: First dose [place] mg 00 on [facility] 04/03/21 at Branch 2245, Until Discontinu ed, Routine furosemide 0 Yes 40mg 40 mg, IV Un ale (LASIX) 04-04 Push, ity of injection 03:45: Q12H, [place] 40 mg 00 First dose Medical (after Branch last reorder) on Fri04/03/21 at 2245, Until Discontinu ed, Routine polyethylen 0 No 17g 17 g, [facility] ers e glycol 04-0424 Oral, ity of 3350 powder 03:45: 16:59 QNOON, 3 [place] 17 g 00 :00 doses, Medical First dose Branch on Fri04/03/21 at 2245, Last dose on Fri04/05/21 at 1200, Routine lactulose 2020- No 30mL 30 mL, [facility] rs (CEPHULAC) 04-04 Oral, BID, it y of solution 30 03:45: 21:35 First dose [place] mL 00 :16 on [facility] 04/03/21 at Branch 2245, Until Discontinu ed, Routine furosemide 2020- No 40mg 40 mg, IV U nivers (LASIX) 04-03 Push, ity of injection 22:30: 22:07 ONCE, 1 [place] 40 mg 00 :00 dose, On Medical [facility] 04/03/21 at 1730, ESSIE insulin 2019- 2020- No 5U 5 Units, Unive rs regular 02-07 Subcutaneo ity o f human 09:15: 08:06 , ONCE, [place] (HUMULIN R) 00 :00 1 dose, Medic al injection [facility] Units 02/08/20 at 0415, Routine insulin 2019- No 15U 15 Units, Univ ers regular 02-07 Slow IV ity of human 07:15: 06:17 Push, [place] (HUMULIN R) 00 :00 ONCE, 1 Medic al injection dose, [facility] Branc h 15 Units 02/08/20 at 0215, Routine codeine-gua 2020- No 10mL 10 mL, Uni vers ifenesin 02-07 Oral, ity of (ROBITUSSIN 05:30: 04:33 ONCE, 1 [place] AC[place] 10-100 00 :00 dose, [facility] javier mg/5 mL 02/08/20 at Branch solution 10 0030, ESSIE mL dextrometho 2019-0 Yes [id number] 10mL Take 10 mL Univers han-guaif 02-07 by mouth ity of enesin 00:00: every 4 [place] 15-100 mg/5 00 (four) Medica l mL syrup hours as Branch needed for Cough. dextrometho 2020-0 Yes [id number] 10mL Take 10 mL Univers rphan-guaif 02-07 [id number] by mouth i ty of enesin 00:00: every 4 [place] 15-100 mg/5 00 (four) Medica l mL syrup hours as Branch needed for Cough. dextrometho 2020-0 2020- No [id number] 10mL Take 10 mL Univers lilia 02-07 [id number] by mouth ity of enesin 00:00: 00:00 every 4 [place] 15-100 mg/5 00 :00 (four) Medica l mL syrup hours as Branch needed for Cough. insulin 2019-2019- No 10U 10 Units, Univ ers regular [...] times Medical daily. Branch albuterol 2020-0 Yes [id number] 2{puff} Inhale 2 Univers 90 7-19 Puffs ity of mcg/actuati 00:00: every 4 [place] on inhaler 00 (four) Medical hours as Branch needed for Wheezing or Shortness of Breath. Zinc 50 mg 2020-0 Yes [id number] 100mg Take 100 Univers Tab 7-19 mg by ity of 00:00: mouth at [place] 00 bedtime. Medical Branch benzonatate 2020-0 Yes [id number] 100mg Take 1 [facility] 100 mg 7-19 capsule by ity of capsule 00:00: mouth 3 [place] 00 (three) Medical times Branch daily as needed for Cough. albuterol 2020-0 Yes [id number] 2{puff} Inhale 2 Univers 90 7-19 Puffs ity of mcg/actuati 00:00: every 4 [place] on inhaler 00 (four) Medical hours as Branch needed for Wheezing or Shortness of Breath. Zinc 50 mg 2020-0 Yes [id number] 100mg Take 100 Univers Tab 7-19 mg by ity of 00:00: mouth at [place] 00 bedtime. Medical Branch benzonatate 2020-0 Yes [id number] 100mg Take 1 [facility] 100 mg 7-19 capsule by ity of capsule 00:00: mouth 3 [place] 00 (three) Medical times Branch daily as needed for Cough. albuterol 2020-0 Yes [id number] 2{puff} Inhale 2 Univers 90 7-19 Puffs ity of mcg/actuati 00:00: every 4 [place] on inhaler 00 (four) Medical hours as Branch needed for Wheezing or Shortness of Breath. Zinc 50 mg 2020-0 Yes [id number] 100mg Take 100 Univers Tab 7-19 mg by ity of 00:00: mouth at [place] 00 bedtime. Medical Branch benzonatate 2020-0 Yes [id number] 100mg Take 1 [facility] 100 mg 7-19 capsule by ity of capsule 00:00: mouth 3 [place] 00 (three) Medical times Branch daily as needed for Cough. albuterol 2020-0 Yes [id number] 2{puff} Inhale 2 [facility] 90 7-19 Puffs ity of mcg/actuati 00:00: every 4 [place] on inhaler 00 (four) Medical hours as Branch needed for Wheezing or Shortness of Breath. Zinc 50 mg 2020-0 Yes [id number] 100mg Take 100 Univers Tab 7-19 mg by ity of 00:00: mouth at [place] 00 bedtime. Medical Branch benzonatate 2020-0 Yes [id number] 100mg Take 1 [facility] 100 mg 7-19 capsule by ity of capsule 00:00: mouth 3 [place] 00 (three) Medical times Branch daily as needed for Cough. albuterol 2020-0 Yes [id number] 2{puff} Inhale 2 [facility] 90 7-19 Puffs ity of mcg/actuati 00:00: every 4 [place] on inhaler 00 (four) Medical hours as Branch needed for Wheezing or Shortness of Breath. Zinc 50 mg 2020-0 Yes [id number] 100mg Take 100 [facility] Tab 7-19 mg by ity of 00:00: mouth at [place] 00 bedtime. Medical Branch benzonatate 2020-0 Yes [id number] 100mg Take 1 [facility] 100 mg 7-19 capsule by ity of capsule 00:00: mouth 3 [place] (three) Medical times Branch daily as needed for Cough. albuterol 2020-0 Yes [id number] 2{puff} Inhale 2 [facility] 90 7-19 Puffs ity of mcg/actuati 00:00: every 4 [place] on inhaler 00 (four) Medical hours as Branch needed for Wheezing or Shortness of Breath. Zinc 50 mg 2020-0 Yes [id number] 100mg Take 100 [facility] Tab 7-19 mg by ity of 00:00: mouth at [place] 00 bedtime. Medical Branch benzonatate 2020-0 Yes [id number] 100mg Take 1 [facility] 100 mg 7-19 capsule by ity of capsule 00:00: mouth 3 [place] 00 (three) Medical times Branch daily as needed for Cough. albuterol 2020-0 2021- No [id number] 2{puff} Inhale 2 [facility] 90 7-19 09-27 Puffs ity of mcg/actuati 00:00: 00:00 every 4 [place] on inhaler 00 :00 (four) Medical hours as Branch needed for Wheezing or Shortness of Breath. Zinc 50 mg 2020-0 1- No [id number] 100mg Take 100 Univers Tab 7-19 09-23 mg by ity of 00:00: 00:00 mouth at [place] 00 :00 bedtime. Medical Branch benzonatate 2020-0 2020- No [id number] 100mg Take 1 [facility] 100 mg 01-29 capsule by ity of capsule 00:00: 00:00 mouth 3 [place] 00 :00 (three) Medical times Branch daily as needed for Cough. vitamin C 2019- 2020- No [id number] 1000mg Take 1 Univers with janette 01-2930 tablet by ity of hips 00:00: 04:59 mouth 3 [place] (VITAMIN C) 00 :00 (three) Medic al 1,000 mg times Branch tablet daily for 10 days. Cholecalcif 2019- 2020- No [id number] 2000U Take 1 Univers evaristo, 01-29-30 tablet by ity of Vitamin D3, 00:00: 04:59 mouth [place] (VITAMIN 00 :00 daily for Medica l D3) 2,000 10 days. Branch unit tablet foLIC acid 2019-2019- No [id number] 1mg Take 1 Univers 1 mg tablet 01-2930 tablet by it y of 00:00: 04:59 mouth [place] 00 :00 daily for Medical 10 days. Branch aspirin 81 2019- 2020- No [id number] 81mg Take 1 Univers mg chewable 01-29-30 tablet by it y of tablet 00:00: 04:59 mouth [place] 00 :00 daily for Medical 10 days. Branch vitamin C 2019-2019- No [id number] 1000mg Take 1 Univers with janette 01-2930 tablet by ity of hips 00:00: 04:59 mouth 3 [place] (VITAMIN C) 00 :00 (three) Medic al 1,000 mg times Branch tablet daily for 10 days. Cholecalcif 2019-2019- No [id number] 2000U Take 1 [facility] evaristo, 01-29-30 tablet by ity of Vitamin D3, 00:00: 04:59 [place] (VITAMIN 00 :00 daily for Medica l D3) 2,000 10 days. Branch unit tablet foLIC acid 2019-2019- No [id number] 1mg Take 1 Univers 1 mg tablet 01-29-30 tablet by it y of 00:00: 04:59 mouth [place] 00 :00 daily for Medical 10 days. Branch aspirin 81 2019- 2020- No [id number] 81mg Take 1 [facility] mg chewable 7-29 01-30 tablet by it y of tablet 00:00: 04:59 mouth [place] 00 :00 daily for Medical 10 days. Branch vitamin C 2020-0 2020- No [id number] 1000mg Take 1 Univers with janette 7-29 01-30 tablet by ity of hips 00:00: 04:59 mouth 3 [place] (VITAMIN C) 00 :00 (three) Medic al 1,000 mg times Branch tablet daily for 10 days. Cholecalcif 2020-0 2020- No [id number] 2000U Take 1 [facility] evaristo, 7-29 01-30 tablet by ity of Vitamin D3, 00:00: 04:59 mouth [place] (VITAMIN 00 :00 daily for Medica l D3) 2,000 10 days. Branch unit tablet foLIC acid 2020-0 2020- No [id number] 1mg Take 1 Univers 1 mg tablet 01-29-30 tablet by it y of 00:00: 04:59 mouth [place] 00 :00 daily for Medical 10 days. Branch aspirin 81 2019-0 2020- No [id number] 81mg Take 1 [facility] mg chewable 7-29 01-30 tablet by it y of tablet 00:00: 04:59 mouth [place] 00 :00 daily for Medical 10 days. Branch vitamin C 2020-0 2020- No [id number] 1000mg Take 1 Univers with janette -29 01-30 tablet by ity of hips 00:00: 04:59 mouth 3 [place] (VITAMIN C) 00 :00 (three) Medic al 1,000 mg times Branch tablet daily for 10 days. Cholecalcif 2019-0 2020- No [id number] 2000U Take 1 [facility] evaristo, 7-30 tablet by ity of Vitamin D3, 00:00: 04:59 mouth [place] (VITAMIN 00 :00 daily for Medica l D3) 2,000 10 days. Branch unit tablet foLIC acid 2020-0 2020- No [id number] 1mg Take 1 Univers 1 mg tablet -29 01-30 tablet by it y of 00:00: 04:59 mouth [place] 00 :00 daily for Medical 10 days. Branch aspirin 81 2020-0 2020- No [id number] 81mg Take 1 [facility] mg chewable 7-29 01-30 tablet by it y of tablet 00:00: 04:59 mouth [place] 00 :00 daily for Medical 10 days. Branch vitamin C 2020-0 2020- No [id number] 1000mg Take 1 Univers with janette 01-29 tablet by ity of hips 00:00: 04:59 mouth 3 [place] (VITAMIN C) 00 :00 (three) Medic al 1,000 mg times Branch tablet daily for 10 days. Cholecalcif 2019- 2020- No [id number] 2000U Take 1 [facility] evaristo, 01-29 tablet by ity of Vitamin D3, 00:00: 04:59 mouth [place] (VITAMIN 00 :00 daily for Medica l D3) 2,000 10 days. [place] unit tablet foLIC acid 2019- 2020- No [id number] 1mg Take 1 Univers 1 mg tablet 01-29 tablet by it y of 00:00: 04:59 mouth [place] 00 :00 daily for Medical 10 days. [place] aspirin 81 2019- 2020- No [id number] 81mg Take 1 [facility] mg chewable 01-29 tablet by it y of tablet 00:00: 04:59 mouth [place] 00 :00 daily for Medical 10 days. [place] FENTanyl PF 2019- 2020- No 50ug 50 mcg, Un ale (SUBLIMAZE 12-15- Slow IV ity o f (PF)) 04:45: 03:38 Push, [place] injection 00 :00 ONCE, 1 Medical 50 mcg dose, Wed [place] 12/15/19 at 2345, STAT iohexol 2019-0 2020- No 120mL 120 mL, Unive rs (OMNIPAQUE -10 17-04 Intravenou it y of 350 02:00: 03:45 s, ONCE, 1 [place] BULK-150 00 :00 dose, Wed Medica l mL) 12/15/19 at [place] injection 2100, 120 mL Routine iohexol 2020-0 2020- No 120mL 120 mL, Unive rs (OMNIPAQUE - 05-19 Intravenou it y of 350 18:55: 18:55 s, ONCE, 1 [place] BULK-150 00 :00 dose, Tue Medica l mL) 11/30/19 at [place] injection 1415, 120 mL Routine vancomycin 2020-0 Yes [id number] 500mg Take 2 [facility] 250 mg 5-07 capsules ity of capsule 00:00: by mouth 4 [place] 00 (four) Medical times [place] daily. vancomycin 2020-0 Yes [id number] 500mg Take 2 [facility] 250 mg 5-07 capsules ity of capsule 00:00: by mouth 4 [place] 00 (four) Medical times Branch daily. vancomycin 2020-0 Yes [id number] 500mg Take 2 [facility] 250 mg 5-07 capsules ity of capsule 00:00: by mouth 4 [place] 00 (four) Medical times Branch daily. vancomycin 2020-0 Yes [id number] 500mg Take 2 [facility] 250 mg 5-07 capsules ity of capsule 00:00: by mouth 4 [place] 00 (four) Medical times Branch daily. vancomycin 2020-0 Yes [id number] 500mg Take 2 [facility] 250 mg 5-07 capsules ity of capsule 00:00: by mouth 4 [place] 00 (four) Medical times Branch daily. vancomycin 2020-0 Yes [id number] 500mg Take 2 [facility] 250 mg 5-07 capsules ity of capsule 00:00: by mouth 4 [place] 00 (four) Medical times Branch daily. vancomycin 2020-0 Yes [id number] 500mg Take 2 [facility] 250 mg 5-07 capsules ity of capsule 00:00: by mouth 4 [place] 00 (four) Medical times Branch daily. vancomycin 2020-0 Yes [id number] 500mg Take 2 [facility] 250 mg 5-07 capsules ity of capsule 00:00: by mouth 4 [place] 00 (four) Medical times Branch daily. vancomycin 2020-0 Yes [id number] 500mg Take 2 [facility] 250 mg 5-07 capsules ity of capsule 00:00: by mouth 4 [place] 00 (four) Medical times Branch daily. vancomycin 2020-0 2020- No [id number] 500mg Take 2 Univers 250 mg 5-07 [...] ity o f mg tablet 19:19: daily. [place] [address] Medical Branch HYDROcodone 2020-0 Yes 1{tbl} Take [...] ity o f mg tablet 19:19: daily. [place] [address] Medical Branch HYDROcodone 2020-0 Yes 1{tbl} Take [...] ity o f mg tablet 19:19: daily. [place] 34 Medical Branch HYDROcodone 2020-0 Yes 1{tbl} Take 1 Un ale -acetaminop 5-05 tablet by ity of hen 10-325 19:19: mouth [place] mg tablet 34 every 4 Medical (four) Branch hours as needed. methadone 5 2020-0 Yes 10mg Take 10 mg Univers mg tablet 5-05 by mouth 3 ity of 19:19: (three) [place] 34 times Medical daily. Branch QUEtiapine 2020-0 [...] ity o f mg tablet 19:19: daily. [place] [address] Medical Branch HYDROcodone 2020-0 Yes 1{tbl} Take 1 Un ale -acetaminop 5-05 tablet by ity of hen 10-325 19:19: mouth [place] mg tablet 34 every 4 Medical (four) Branch hours as needed. methadone 5 2020-0 Yes 10mg Take 10 mg Univers mg tablet 5-05 by mouth 3 ity of 19:19: (three) [place] [address] times Medical daily. Branch QUEtiapine 2020-0 Yes 350mg Take 350 Un ale (SEROQUEL) 5-05 mg by ity of 300 mg 19:19: mouth at [place] tablet 34 bedtime. Medical Branch carvediloL 2020-0 Yes 6.25mg Take 6.25 Univers 6.25 mg 5-05 mg by ity of tablet 19:19: mouth 2 [place] [address] (two) Medical times Branch daily with meals. [...] by mouth 2 ity of 19:19: (two) [place] [address] times Medical daily. Branch furosemide 2020-0 Yes 80mg Take 80 mg U nivers (LASIX) 40 5-05 by mouth ity o f mg tablet 19:19: daily. [place] [address] Medical Branch HYDROcodone 2020-0 Yes 1{tbl} Take 1 Un ale -acetaminop 5-05 tablet by ity of hen 10-325 19:19: mouth [place] mg tablet 34 every 4 Medical (four) Branch hours as needed. methadone 5 2020-0 Yes 10mg Take 10 mg Univers mg tablet 5-05 by mouth 3 ity of 19:19: (three) [place] 34 times Medical daily. Branch QUEtiapine 2020-0 [...] by mouth 2 ity of 19:19: (two) [place] 34 times Medical daily. Branch furosemide 2020-0 Yes 80mg Take 80 mg U nivers (LASIX) 40 5-05 by mouth ity o f mg tablet 19:19: daily. [place] [address] Medical Branch HYDROcodone 2020-0 Yes 1{tbl} Take 1 Un ale -acetaminop 5-05 tablet by ity of hen 10-325 19:19: mouth [place] mg tablet 34 every 4 Medical (four) Branch hours as needed. methadone 5 2020-0 Yes 10mg Take 10 mg Univers mg tablet 5-05 by mouth 3 ity of 19:19: (three) [place] 34 times Medical daily. Branch QUEtiapine 2020-0 Yes 350mg Take 350 Un ale (SEROQUEL) 5-05 mg by ity of 300 mg 19:19: mouth at [place] tablet 34 bedtime. Medical Branch carvediloL 2020-0 Yes 6.25mg Take 6.25 Univers 6.25 mg 5-05 mg by ity of tablet 19:19: mouth 2 [place] [address] (two) Medical times Branch daily with meals. [...] by mouth 2 ity of 19:19: (two) [place] 34 times Medical daily. Branch furosemide 2020-0 Yes 80mg Take 80 mg U nivers (LASIX) 40 5-05 by mouth ity o f mg tablet 19:19: daily. [place] [address] Medical Branch QUEtiapine 2020-0 Yes 350mg Take 350 Un ale (SEROQUEL) 5-05 mg by ity of 300 mg 19:19: mouth at [place] tablet 34 bedtime. Medical Branch carvediloL 2020-0 Yes 6.25mg Take 6.25 Univers 6.25 mg 5-05 mg by ity of tablet 19:19: mouth 2 [place] [address] (two) Medical times Branch daily with meals. [...] ity o f mg tablet 19:19: daily. [place] [address] Medical Branch QUEtiapine 2020-0 Yes 350mg Take 350 Un ale (SEROQUEL) 5-05 mg by ity of 300 mg 19:19: mouth at [place] tablet 34 bedtime. Medical Branch carvediloL 2020-0 Yes 6.25mg Take 6.25 Univers 6.25 mg 5-05 mg by ity of tablet 19:19: mouth 2 [place] 34 (two) Medical times Branch daily with meals. sacubitril- 2020-0 Yes 1{tbl} Take 1 Un lae valsartan 5-05 tablet by ity o f [...] by mouth 2 ity of 19:19: (two) [place] 34 times Medical daily. Branch furosemide 2020-0 Yes 80mg Take 80 mg U nivers (LASIX) 40 5-05 by mouth ity o f mg tablet 19:19: daily. [place] [address] Medical Branch QUEtiapine 2020-0 Yes 350mg Take 350 Un ale (SEROQUEL) 5-05 mg by ity of 300 mg 19:19: mouth at [place] tablet 34 bedtime. Medical Branch carvediloL 2020-0 Yes 6.25mg Take 6.25 Univers 6.25 mg 5-05 mg by ity of tablet 19:19: mouth 2 [place] 34 (two) Medical times Branch daily with [...] by mouth 2 ity of 19:19: (two) [place] 34 times Medical daily. Branch furosemide 2020-0 Yes 80mg Take 80 mg U nivers (LASIX) 40 5-05 by mouth ity o f mg tablet 19:19: daily. [place] [address] Medical Branch QUEtiapine 2020-0 Yes 350mg Take 350 Un ale (SEROQUEL) 5-05 mg by ity of 300 mg 19:19: mouth at [place] tablet 34 bedtime. Medical Branch carvediloL 2020-0 Yes 6.25mg Take 6.25 Univers 6.25 mg 5-05 mg by ity of tablet 19:19: mouth 2 [place] 34 (two) Medical times Branch daily with [...] ity o f mg tablet 19:19: daily. [place] [address] Medical Branch QUEtiapine 2020-0 Yes 350mg Take 350 Un ale (SEROQUEL) 5-05 mg by ity of 300 mg 19:19: mouth at [place] tablet 34 bedtime. Medical Branch carvediloL 2020-0 Yes 6.25mg Take 6.25 Univers 6.25 mg 5-05 mg by ity of tablet 19:19: mouth 2 [place] 34 (two) Medical times Branch daily with [...] by mouth 2 ity of 19:19: (two) [place] [address] times Medical daily. Branch furosemide 2020-0 Yes 80mg Take 80 mg U nivers (LASIX) 40 5-05 by mouth ity o f mg tablet 19:19: daily. [address] Branch furosemide 2020-0 Yes 40mg 40 mg, [facility] rs (LASIX) 5-05 Oral, ity of tablet 40 15:30: DAILY, [place] mg 00 First dose Medical on Fri Branch 11/16/19 at 1030, Until Discontinu ed, Routine Sliding 2020-[address] [facility] ers Scale 5-05 us, Q4H, ity of Insulin - 13:00: First [place] Aspart 00 on [facility] (NOVOLOG) + 11/16/[address] [facility] Fsbg 0800, Testing Until Discontinu ed, Routine insulin 2019-0 2020- No .2U/kg/ 17 Units Un ale glargine 5-05 05-05 d (rounded ity of (LANTUS 02:00: 12:56 [place] 16.8 [place] U-100) 00 :51 Units = Medical injection 0.2 Branch 17 Units Units/kg/d ay ?84 kg), Subcutaneo , QHS, First dose on Fri11/15/19 at 2100, Until Discontinu ed, Routine vancomycin 2020-0 Yes [id number] 500mg Take 2 U nivers 250 mg 5-05 capsules ity of capsule 00:00: by mouth 4 [place] 00 (four) Medical times Branch daily. vancomycin 2020-0 Yes [id number] 500mg Take 2 U nivers 250 mg 5-05 capsules ity of capsule 00:00: by mouth 4 [place] 00 (four) Medical times Branch daily. vancomycin 2020-0 Yes [id number] 500mg Take 2 U nivers 250 mg 5-05 capsules ity of capsule 00:00: by mouth 4 [place] 00 (four) Medical times Branch daily. vancomycin 2020-0 Yes [id number] 500mg Take 2 U nivers 250 mg 5-05 capsules ity of capsule 00:00: by mouth 4 [place] 00 (four) Medical times Branch daily. vancomycin 2020-0 Yes [id number] 500mg Take 2 U nivers 250 mg 5-05 capsules ity of capsule 00:00: by mouth 4 [place] 00 (four) Medical times Branch daily. vancomycin 2020-0 Yes [id number] 500mg Take 2 U nivers 250 mg 5-05 capsules ity of capsule 00:00: by mouth 4 [place] 00 (four) Medical times Branch daily. vancomycin 2020-0 Yes [id number] 500mg Take 2 U nivers 250 mg 5-05 capsules ity of capsule 00:00: by mouth 4 [place] 00 (four) Medical times Branch daily. vancomycin 2020-0 Yes [id number] 500mg Take 2 U nivers 250 mg 5-05 capsules ity of capsule 00:00: by mouth 4 [place] 00 (four) Medical times Branch daily. vancomycin 2020-0 Yes [id number] 500mg Take 2 U nivers 250 mg 5-05 capsules ity of capsule 00:00: by mouth 4 [place] 00 (four) Medical times Branch daily. vancomycin 2020-0 Yes [id number] 500mg Take 2 U nivers 250 mg 5-05 capsules ity of capsule 00:00: by mouth 4 [place] 00 (four) Medical times Branch daily. vancomycin 2020-0 Yes [id number] 500mg Take 2 U nivers 250 mg 5-05 capsules ity of capsule 00:00: by mouth 4 [place] 00 (four) Medical times Branch daily. vancomycin 2020-0 Yes [id number] 500mg Take 2 U nivers 250 mg 5-05 capsules ity of capsule 00:00: by mouth 4 [place] 00 (four) Medical times Branch daily. vancomycin 2020-0 2020- No [id number] 500mg Take 2 Univers 250 mg 5-05 09-23 capsules ity of capsule 00:00: 00:00 by mouth 4 [place] as 00 :00 (four) Medical times Branch daily. methadone 2020-0 Yes 30mg 30 mg, Univer s (DOLOPHINE 5-04 Oral, ity of HCL) tablet 15:45: DAILY, [place] 30 mg 00 First dose Medical on Fri11/15/19 at 1045, Until Discontinu ed, Routine carvediloL 2020-0 Yes 6.25mg 6.25 mg, U nivers (COREG) 5-04 Oral, BID ity of tablet 6.25 13:00: MEALS, [place] mg 00 First dose Medical on Fri Branch 11/15/19 at 0800, Until Discontinu ed, Routine QUEtiapine 2020-0 Yes 300mg 300 mg, Uni vers (SEROQUEL) 11-14 Oral, QHS, ity of tablet 300 02:00: First dose [place] mg 00 on [facility] 11/14/19 at Branch 2100, Until Discontinu ed, Routine magnesium 2019-0 2020- No 2g 2 g, IV Univ ers sulfate in 11-13 Piggyback, it y of water 2 17:30: 16:38 ONCE, 1 [place] gram/50 mL 00 :00 dose, [facility] javier (4 %) 11/14/19 at Branch infusion 2 1230, g Routine KCL 2019- 2020- No 40meq 40 mEq, Univers (KLOR-CON 11-13 Oral, ONCE ity of M20) tablet 17:30: 16:38 NOW, 1 [place] as 40 mEq 00 :00 dose, [facility] 11/14/19 at Branch 1230, Routine QUEtiapine 2019-0 2020- No 200mg 200 mg, Un ale (SEROQUEL) 11-13 Oral, ity of tablet 200 06:45: 05:43 ONCE, 1 [place] as mg 00 :00 dose, [facility] 11/14/19 at Branch 0145, Routine QUEtiapine 2019-0 2020- No 100mg 100 mg, Un ale (SEROQUEL) 11-13 Oral, QHS, it y of tablet 100 02:00: 05:32 First dose [place] mg 00 :57 on [facility] 11/13/19 at Branch 2100, Until Discontinu ed, Routine pantoprazol 2019-0 Yes 40mg 40 mg, Univ ers e 11-13 Oral, BID, ity of (PROTONIX) 01:00: First dose [place] EC tablet 00 on [facility] Medical 40 mg 11/13/19 at Branch 2000, Until Discontinu ed, Routine Sliding 2020-0 2020- No Subcutaneo Uni vers Scale 11-12 us, TID ity of Insulin - 22:00: 12:57 MEALS+HS, [place] Aspart 00 :38 First dose Medical (NOVOLOG) + on [facility] Branch Fsbg 11/13/19 at Testing 1700, Until Discontinu ed, Routine furosemide 2019-0 2020- No 80mg 80 mg, Univ ers (LASIX) 11-12 Oral, ity of tablet 80 17:00: 04:57 DAILY, [place] mg 00 :48 First dose Medical on [facility] Branch 11/13/19 at 1200, Until Discontinu ed, Routine QUEtiapine 2019- No 100mg 100 mg, Un ale (SEROQUEL) 11-12 Oral, QHS, it y of tablet 100 05:15: 11:12 First dose [place] mg 00 :52 on [facility] Medical 11/13/19 at Branch 0015, Until Discontinu ed, Routine morpHINE 2019- No 2mg 2 mg, Slow Un ale injection 2 11-11 IV Push, ity of mg 20:45: 15:47 Q8HPRN, [place] 52 :59 Starting Medical 11/12/19 Branch at 1545, Until 11/15/19 at 1047, [...] br>Duratio n of Therapy: 7 days metroNIDAZO 2019- No 500mg 500 mg, IV Univers LE [...] 00 on Fri Medical solution 11/12/19 at Branch 500 mg 1200, Until Discontinu ed, Routine
[...] Medi javier (8 %) IV 11/12/19 at [place] Piggyback 4 1000, g Routine KCL 40meq 40 mEq, IV Unive rs (POTASSIUM 11-11 Piggyback, it y of CHLORIDE) 15:00: 16:27 ONCE, 1 [place] 40 mEq in 00 :00 dose, Fri Medic al NaCl 0.9% 11/12/19 at [facility] h (NS) 1000, 250 piggyback mL iohexol No 120mL 120 mL, Unive rs (OMNIPAQUE 11-11 Intravenou it y of 350 14:25: 14:25 s, ONCE, 1 [place] BULK-150 00 :00 dose, Fri Medica l mL) 11/12/19 at [place] injection 0945, 120 mL Routine iohexol No 120mL 120 mL, Unive rs (OMNIPAQUE 11-10 Intravenou it y of 350 14:54: 14:54 [...] Medi javier (8 %) IV 11/11/19 at [facility] Piggyback 4 0330, g Routine morpHINE 2019- No 2mg 2 mg, Slow Un ale injection 2 11-10 IV Push, ity of mg 05:33: 17:32 Q6HPRN, [place] 31 :45 Starting Medical [place] Branch 11/11/19 at 0033, Until Fri11/12/19 at 1232, Routine, Pain (scale 7-10) lactated 2019- No 1000mL at 125 [facility] ers ringers IV 11-09 mL/hr, ity of [...] over 60 Medical (NS) 50 mL Minutes, [facility] MINI-BAG Q6H ABX, First dose on Fri11/10/19 at 1715, Until Discontinu ed, ESSIE
Re stricted use approved by: [facility] 8TH FLOOR
R victorino for Anti-Infec tive: Empiric Therapy for Suspected Infection< br>Empiric Therapy Site: Abdominal< br>Duratio n of therapy: 7 days Sliding 2019- No Subcutaneo Uni vers Scale 11-09 0502 us, Q4H, ity of Insulin - 21:30: 21:00 First dose [place] Aspart 00 :05 on Wed Medical (NOVOLOG) + 11/10/19 at Br anch Fsbg 1630, Testing Until Discontinu ed, Routine dextrose 2020-0 Yes 250mL 250 mL, IV Un ale 10% (D10W) 11-09 Infusion, ity of bolus 21:10: PRN - SEE [place] infusion 07 INSTRUCTIO Medic al 250 mL [...] at room temperatur e. <b r> glucagon 2019-0 Yes 1mg 1 mg, Univers (GLUCAGEN 11-09 Intramuscu ity of DIAGNOSTIC 21:08: lar, PRN, [place] KIT) 33 Starting Medical injection 1 Wed Branch mg 11/10/19 at 1608, Until Discontinu ed, ESSIE, Blood Glucose < or = 70 mg/dL and patient is unable to swallow or has mental changes. morpHINE 2019-0 2020- No 2mg 2 mg, Slow Un ale injection 2 11-09-30 IV Push, ity of mg 18:15: 03:14 Q2HPRN, [place] 00 :00 Starting Medical Wed Branch 11/10/19 at 1315, Until Fri11/10/19 at 2214, Routine, Pain (scale 7-10) NaCl 0.9% 2020-0 2020- No 1000mL at 75 Univ ers (NS) IV 11-09 05-01 mL/hr, IV ity of infusion 17:30: 12:15 Infusion, [place] as 1,000 mL 00 :17 CONTINUOUS Medic al , Starting Branch 11/10/19 at 1230, Until Fri11/12/19 at 0715, Routine insulin 2019-0 2020- No 10U 10 Units, Univ ers glargine 11-09 04-30 Subcutaneo ity of (LANTUS 17:30: 22:00 us, [...] 0209, Until Discontinu ed, 50 mL octreotide 0 2020- No 50ug/h 50 mcg/hr Univers (SANDOSTATI 11-09 [...] 0015, Until 11/10/19 at 1225, Routine piperacilli 2019-0 2020- No 3.375g 3.375 g, Univers n-tazobacta [...] Push, ity of mg 04:06: 18:06 Q4HPRN, [place] 20 :32 Starting Medical e Branch 11/09/19 at 2306, Until Fri11/10/19 at 1306, Routine, Pain (scale 7-10) vancomycin 2019- 2020- No 1000mg 1,000 mg, Univers 1000 mg in 11-09 IV ity of NS 200 mL 03:45: 03:45 [place]back, [place] RTU IV 00 :00 ONCE, 1 Medical Piggyback dose, [facility] h 1,000 mg 11/09/19 at 2245
Re ason for Anti-Infec tive: Empiric Therapy for Suspected Infection< br>Empiric Therapy Site: Abdominal< br>Duratio n of therapy: 72 hours proMETHazin 2019- 2020- No 25mg 25 mg, IV Univers [...] Tue Branch 11/09/19 at 2145, ESSIE iohexol 2019- 2020- No 120mL 120 mL, Unive rs (OMNIPAQUE 11-09 Intravenou it y of 350 00:30: 00:18 s, ONCE, 1 [place] BULK-150 00 :00 dose, Tue Medica l mL) 11/09/19 at [place] injection 1930, 120 mL Routine proMETHazin 2019-0 2020- No 25mg 25 mg, IV Univers e 11-09 Piggyback, ity of (PHENERGAN) 00:15: 23:24 [place]CE[place] 1 [place] 25 [place] in 00 :00 dose, Tue Medica l NaCl 0.9% 11/09/19 at [facility] (NS) 50 mL 191, 50 piggyback mL morpHINE 2019-0 2020- No 4mg 4 mg, Slow Un ale injection 4 11-09 IV Push, ity of mg 00:15: 23:30 ONCE, 1 [place] 00 :00 dose, Tue Medical 11/09/19 at [place] 191, STAT pantoprazol 2019-0 2020- No 40mg 40 mg, IV Univers e 11-09 Piggyback, ity of (PROTONIX) 00:15: 23:42 ONCE, 1 [place] as 40 mg in 00 :00 dose, Tue Medica l NaCl 0.9% 11/09/19 at [facility] (NS) 100 mL 1914, 100 MINI-BAG mL NaCl 0.9% 2019-0 2020- No 1000mL at 999 Uni vers (NS) bolus 11-08 04-29 mL/hr, ity of infusion 23:30: 02:08 1,000 mL, Robert as 1,000 mL 00 :00 IV Medical Infusion, [place] ONCE, 1 dose, [facility] 11/09/19 at 1830, ESSIE NaCl 0.9% 2020-0 2020- No 1000mL at 999 Uni vers (NS) bolus 11-08 04-29 mL/hr, ity of infusion 23:15: 00:31 1,000 mL, Robert as 1,000 mL 00 :00 IV Medical Infusion, [place] ONCE, 1 dose, 11/09/19 at 1815, ESSIE Lactulose Lactulose 2019-0 Yes [place] [address] [facility] Valsartan Valsartan 2020-0 Yes [place] [address] [facility] QUEtiapine 2020-0 Yes 300mg Take [...] ity o f mg tablet 22:47: every [place] [address] morning Medical and Branch evening. HYDROcodone 2020-0 Yes 1{tbl} Take 1 Un ale -acetaminop 1-19 tablet by ity of hen 10-325 22:47: mouth [place] mg tablet 17 every 4 Medical (four) Branch hours as needed. methadone 5 2020-0 Yes 30mg Take 30 mg Univers mg tablet 1-19 by mouth ity of 22:47: at [place] 17 bedtime. Medical Branch QUEtiapine 2020-0 Yes [...] 1-19 by mouth ity of 22:47: at [place] [address] bedtime. Medical Branch QUEtiapine 2020-0 Yes 300mg [...] ity o f mg tablet 22:47: every [place] [address] morning Medical and Branch evening. HYDROcodone 2020-0 Yes 1{tbl} Take 1 Un ale -acetaminop -19 tablet by ity of hen 10-325 22:47: mouth [place] mg tablet 17 every 4 Medical (four) Branch hours as needed. methadone 5 2020-0 Yes 30mg Take 30 mg Univers mg tablet -19 by mouth ity of 22:47: at [place] [address] bedtime. Medical Branch Sliding 2020-0 Yes Subcutaneo Univ ers Scale 1-19 us, Q4H, ity of Insulin - 22:00: [place] Aspart 00 on [facility] (NOVOLOG) + 08/01/19 at [place] Fsbg 1600, Testing Until Discontinu ed, Routine insulin 2020-0 Yes 3U 3 Units, Univer s aspart - Subcutaneo ity of RAPID 19:15: us, TID [place] (NOVOLOG 00 MEALS, Medical U-100 First dose Branch INSULIN on Sun ASPART) 08/01/19 at injection 3 1315, Units Until Discontinu ed, Routine sacubitril- 2020-0 Yes 1{tbl} 1 tablet, Univers valsartan 08-01 Oral, BID, ity of (ENTRESTO) 14:00: First dose [place] 49-51 mg 00 on Sun Medical tablet 1 08/01/19 at [facility] h tablet 0800, Until Discontinu ed, Routine
faculty member approving Restricted medication : MEGADC carvediloL 2020-0 Yes 6.25mg 6.25 mg, U nivers (COREG) 08-01 Oral, BID ity of tablet 6.25 14:00: MEALS, [place] mg 00 First dose Medical on [place] Branch 08/01/19 at 0800, Until Discontinu ed, Routine rifAXIMin 2020-0 Yes 550mg 550 mg, Univ ers (XIFAXAN) 08-01 Oral, BID, ity of tablet 550 14:00: First dose [place] mg 00 on [place] [facility] 08/01/19 at Branch 0800, Until Discontinu ed, Routine
Reason for Anti-Infec tive: Empiric Therapy for Suspected Infection< br>Empiric Therapy Site: Abdominal< br>Duratio n of therapy: 7 days lactulose 2020-0 Yes 30mL 30 mL, Univer s (CEPHULAC) 08-01 Oral, BID, ity of solution 30 14:00: First dose [place] mL 00 on [facility] 08/01/19 at Branch 0800, Until Discontinu ed, Routine insulin NPH 2019- Yes 35U 35 Units, U nivers and regular 08-01 Subcutaneo it y of human 70-30 13:30: us, BIDAC, [place] (HUMULIN 00 First dose Medic al 70-30 U-100 on [facility] INSULIN) 08/01/19 at 100 unit/mL 0730, (70-30) Until injection Discontinu 35 Units ed, Routine Sliding 2019-0 2020- No Subcutaneo Uni vers Scale 08-01 us, AC+HS, ity of Insulin - 13:30: 19:00 First dose [place] Aspart 00 :16 on [facility] (NOVOLOG) + 08/01/19 at [facility]sbg 0730, Testing Until Discontinu ed, Routine NaCl 0.9% 2020- No 1000mL at 100 Uni vers (NS) IV 08-01 mL/hr, IV ity of infusion 11:15: 21:17 Infusion, [place] as 1,000 mL 00 :34 CONTINUOUS Medic al , Starting [facility] 08/01/19 at 0515, Until [place] 08/01/19 at 1517, Routine NaCl 0.9% 0 2020- No 500mL at 999 Univ ers (NS) bolus 08-01 mL/hr, 500 it y of infusion 09:30: 08:35 mL, IV [place] 500 mL 00 :00 Infusion, Medical ONCE, 1 Branch dose, [place] 08/01/19 at 0330, STAT albuterol 2019- Yes 2{puff} 2 Puff, Un ale (VENTOLIN) 08-01 Inhalation ity of inhaler 2 06:21: , Q4HPRN, [place] as Puff 25 Starting [facility] 08/01/19 at 0021, Until Discontinu ed, Routine, Wheezing, Shortness of Breath QUEtiapine 2019-0 Yes 300mg 300 mg, Uni vers (SEROQUEL) 08-01 Oral, QHS, ity of tablet 300 05:30: First dose [place] mg 00 on [facility] 07/31/19 at Branch 2330, Until Discontinu ed, Routine methadone 2020-0 Yes 30mg 30 mg, Univer s (DOLOPHINE -19 Oral, QHS, ity of HCL) tablet 05:15: First dose [place] 30 mg 00 on Sat Medical 07/31/19 at Branch 2315, Until Discontinu ed, Routine FENTanyl PF 2019-0 2020- No 25ug 25 mcg, Un ale (SUBLIMAZE 08-01 Slow IV ity o f (PF)) 04:45: 04:04 Push, [place] injection 00 :00 ONCE, 1 Medical 25 mcg dose, Sat Branch 07/31/19 at 2245, STAT insulin 2020-0 2020- No 10U 10 Units, Univ ers regular 08-01 IV Push, ity of human 04:15: 03:22 ONCE, 1 [place] (HUMULIN R) 00 :00 dose, Sat Med ical injection 07/31/19 at Bran ch 10 Units 2215, Routine HYDROcodone 2019-0 2020- No 1{tbl} 1 tablet, Univers -acetaminop 08-01 Oral, ity of hen (NORCO) 04:13: 08:54 Q6HPRN, [place] 10-325 mg 02 :57 Starting Medica l tablet 1 Sat Branch tablet 07/31/19 at 2213, Until 08/01/19 at 0254, Routine, Pain (scale 7-10) glucagon 2019-0 Yes 1mg 1 mg, Univers (GLUCAGEN 08-01 Intramuscu ity of DIAGNOSTIC 03:44: lar, PRN, [place] KIT) 34 Starting Medical injection 1 Sat Branch mg 07/31/19 at 2144, Until Discontinu ed, ESSIE, Blood Glucose < or = 70 mg/dL and patient is unable to swallow or has mental changes. insulin 2020-0 2020- No .1U/kg/ 0.1 Univer s regular 08-01 h Units/kg/h ity o f human 03:30: 21:16 r ?69.9 kg [place] (HUMULIN R) 25 :49 (6.99 Medical 100 Units mL/hr), IV Bran ch in NaCl Infusion, 0.9% (NS) TITRATE, 100 mL Starting infusion 07/31/19 at 2130, Until 08/01/19 at 1516 NaCl 0.9% 2019- No 1000mL at 999 Uni vers (NS) bolus 1-19 01-19 mL/hr, ity of infusion 03:00: 02:09 [...] known No [facility] medications [facility] Alprazolam Alprazolam Yes .[address] [facility] (Xanax) (Xanax) [facility] - 0.25 Mg 0.25 Mg Patient Tablet Tablet [facility] Hydrocodone Hydrocodone Yes [address] [facility] [address] Bit/Acetami Bit/Acetami Hours as [facility] - nophen nophen needed for Patie nt ([place] [facility] [facility] 10-325 10-325 Medical Tablet) 1 Tablet) 1 Cente r Each Tablet Each Tablet Insulin Insulin Yes 35 Every 12 [facility] Detemir Detemir Hours [facility]ukes - (Levemir) (Levemir) Patie nt 100 Unit/1 100 Unit/1 s Ml Vial Ml Vial [facility] Quetiapine Quetiapine Yes [address] Fumarate Fumarate Lukes - (Seroquel) (Seroquel) Pat ient 25 Mg 25 Mg s Tablet Tablet Medical [place] Quetiapine Quetiapine Yes Corey not [facility] Fumarate Fumarate [facility] defined [facility] Carvedilol Carvedilol Yes Corey not [facility] defined [facility] Furosemide Furosemide Yes Corey not [facility] defined [facility] NovoLog Mix NovoLog Mix Yes Corey not [facility] 70/30 70/30 [facility] defined [facility] - Flexpen Flexpen [facility] Insulin Insulin 2017- No [facility] Aspart Aspart 10-30 [facility]ukes - (Novolog (Novolog 00:00 Patien t Mix 70-30 Mix 70-30 :00 s Vial) 100 Vial) 100 Medic al Units/Ml Units/Ml Center Ml, Unknown Ml, Unknown Dose Dose Insulin Insulin No [facility] Glargine Glargine 10-30 [facility]ukes - (Lantus) (Lantus) 00:00 Patien t 100 100 :00 s Units/Ml Units/Ml Medical Ml, Unknown Ml, Unknown C enter Dose Dose Trazodone Trazodone 2017- No Daily [facility] Hcl 50 Mg Hcl 50 Mg 10-30 Luke s - Tablet, Tablet, 00:00 Patient Unknown Unknown :00 s Dose Oral Dose Oral [facility] Vital Signs Vital Name Observation Time Observation Value Comments Source Systolic blood 2021-06-15 03:00:00 183 mm[Hg] [facility] [place] Diastolic blood 2021-06-15 03:00:00 101 mm[Hg] [facility] Heart rate 2021-06-15 03:00:00 82 /min [facility] Respiratory rate 2021-06-15 03:00:00 9 /min [facility] Oxygen saturation in 2021-06-15 03:00:00 94 /min [facility] blood by [facility] Pulse oximetry Branch Body temperature 2021-06-14 23:38:00 37.44 Juli [facility] Body weight 2021-06-14 23:38:00 76.204 kg [facility] BMI 2021-06-14 23:38:00 29.76 kg/m2 [facility] Systolic blood 2021-04-09 16:57:00 131 mm[Hg] Univer sity of pressure [place] [facility] Diastolic blood 2021-04-09 16:57:00 70 mm[Hg] Unive rsity of pressure [place] [facility] Heart rate 2021-04-09 16:57:00 60 /min [facility]i ty [facility] [place] [facility] Body temperature 2021-04-09 16:57:00 36.22 Juli Univ ersity of [place] [facility] Respiratory rate 2021-04-09 16:57:00 16 /min Univ ersity of [place] [facility] Oxygen saturation in 2021-04-09 16:57:00 94 /min University of Arterial blood by [employer] Pulse oximetry Branch Body weight 2021-04-08 08:51:00 72.848 kg Universi ty [facility] [place] [facility] BMI 2021-04-08 08:51:00 28.45 kg/m2 Universi ty of [place] [facility] [place] WEIGHT 2020-12-07 14:17:00 78.5 kg WEIGHT 2020-12-03 06:00:00 77.3 kg HEIGHT 2020-11-30 11:30:00 154 cm HEIGHT 2020-11-27 11:20:00 154 cm WEIGHT 2020-11-27 11:20:00 74.1 kg WEIGHT 2020-10-19 06:36:00 76.8 kg Systolic blood 2020-09-08 01:00:00 175 mm[Hg] Univer sity of pressure [place] [facility] Diastolic blood 2020-09-08 01:00:00 77 mm[Hg] Unive rsity of pressure [place] [facility] Heart rate 2020-09-08 01:00:00 68 /min [facility]i ty [facility] [place] [facility] Respiratory rate 2020-09-08 01:00:00 17 /min Univ ersity of [place] [facility] Oxygen saturation in 2020-09-08 01:00:00 100 /min University of Arterial blood by [employer] javier Pulse oximetry Branch Body temperature 2020-09-08 00:32:00 36.83 Juli Univ ersity of [place] [facility] Body height 2020-09-08 00:32:00 160 cm [facility]i ty [facility] [place] [facility] Body weight 2020-09-08 00:32:00 76.658 kg Universi ty [facility] [place] [facility] BMI 2020-09-08 00:32:00 29.94 kg/m2 [facility] [place] [facility] WEIGHT 2020-08-10 15:12:00 81 kg WEIGHT 2020-06-22 14:32:00 79.6 kg Systolic blood 2020-02-08 07:31:00 138 mm[Hg] Univer sity of pressure [place] [facility] Diastolic blood 2020-02-08 07:31:00 86 mm[Hg] Unive rsity of pressure [place] [facility] Heart rate 2020-02-08 07:31:00 80 /min Universi ty [facility] [place] [facility] Oxygen saturation in 2020-02-08 07:31:00 98 /min University of Arterial blood by [place] Medi javier Pulse oximetry Branch Respiratory rate 2020-02-08 06:00:00 12 /min Univ ersity of [facility] Branch Body temperature 2020-02-08 03:16:00 36.56 Juli Univ ersity of [place] [facility] Body weight 2020-02-08 03:16:00 72.576 kg Universi ty [facility] [place] [facility] BMI 2020-02-08 03:16:00 28.34 kg/m2 [facility] [place] [facility] Systolic blood 2020-02-08 07:31:00 138 mm[Hg] Univer sity of pressure [place] [facility] Diastolic blood 2020-02-08 07:31:00 86 mm[Hg] Unive rsity of pressure [place] [facility] Heart rate 2020-02-08 07:31:00 80 /min Universi ty [facility] [place] [facility] Oxygen saturation in 2020-02-08 07:31:00 98 /min University of Arterial blood by [place] Medi javier Pulse oximetry Branch Respiratory rate 2020-02-08 06:00:00 12 /min Univ ersity of [place] [facility] Body temperature 2020-02-08 03:16:00 36.56 Juli Univ ersity of [place] [facility] Body weight 2020-02-08 03:16:00 72.576 kg [facility]i ty [facility] [place] [facility] BMI 2020-02-08 03:16:00 28.34 kg/m2 [facility] [place] [facility] Systolic blood 2020-01-30 21:00:00 115 mm[Hg] Univer sity of pressure [place] [facility] Diastolic blood 2020-01-30 21:00:00 66 mm[Hg] Unive rsity of pressure [place] [facility] Heart rate 2020-01-30 21:00:00 73 /min [facility]i ty [facility] [place] [facility] Respiratory rate 2020-01-30 21:00:00 16 /min Univ ersity of [place] [facility] Oxygen saturation in 2020-01-30 21:00:00 93 /min University of Arterial blood by [facility] Pulse oximetry Branch Body temperature 2020-01-30 19:35:00 37.61 Juli Univ ersity of [place] [facility] Body height 2020-01-30 19:35:00 160 cm Universi ty of [place] [facility] Body weight 2020-01-30 19:35:00 72.576 kg [facility]i ty [facility] [place] [facility] BMI 2020-01-30 19:35:00 28.34 kg/m2 [facility] [place] [facility] Systolic blood 2020-01-30 21:00:00 115 mm[Hg] Univer sity of pressure [place] [facility] Diastolic blood 2020-01-30 21:00:00 66 mm[Hg] Unive rsity of pressure [place] [facility] Heart rate 2020-01-30 21:00:00 73 /min [facility]i ty [facility] [place] [facility] Respiratory rate 2020-01-30 21:00:00 16 /min Univ ersity of [place] [facility] Oxygen saturation in 2020-01-30 21:00:00 93 /min [facility] of Arterial blood by [facility] Pulse oximetry Branch Body temperature 2020-01-30 19:35:00 37.61 Juli Univ ersity of [place] [facility] Body height 2020-01-30 19:35:00 160 cm Universi ty [facility] [place] [facility] Body weight 2020-01-30 19:35:00 72.576 kg [facility]i [facility] [place] [facility] BMI 2020-01-30 19:35:00 28.34 kg/m2 [facility]i [facility] [place] [facility] Systolic blood 2019-12-16 05:00:00 147 mm[Hg] Univer sity of pressure [place] [facility] Diastolic blood 2019-12-16 05:00:00 73 mm[Hg] Unive rsity of pressure [place] [facility] Heart rate 2019-12-16 05:00:00 88 /min Universi ty [facility] [place] [facility] Oxygen saturation in 2019-12-16 05:00:00 97 /min University of Arterial blood by [facility] Pulse oximetry Branch Respiratory rate 2019-12-16 03:45:00 15 /min Univ ersity of [place] [facility] Body height 2019-12-16 00:45:54 160 cm [facility]i [facility] [place] [facility] Body weight 2019-12-16 00:45:54 80.513 kg [facility] [place] [facility] BMI 2019-12-16 00:45:54 31.44 kg/m2 [facility] [place] [facility] Body temperature 2019-12-16 00:14:00 37.61 Juli Univ ersity [facility] [place] [facility] Systolic blood 2019-12-16 05:00:00 147 mm[Hg] Univer sity of pressure [place] [facility] Diastolic blood 2019-12-16 05:00:00 73 mm[Hg] Unive rsity of pressure [place] [facility] Heart rate 2019-12-16 05:00:00 88 /min [facility]i ty [facility] [place] [facility] Oxygen saturation in 2019-12-16 05:00:00 97 /min [facility] of Arterial blood by [facility] Pulse oximetry Branch Respiratory rate 2019-12-16 03:45:00 15 /min Univ ersity of [place] [facility] Body height 2019-12-16 00:45:54 160 cm [facility]i [facility] [place] [facility] Body weight 2019-12-16 00:45:54 80.513 kg [facility] [place] [facility] BMI 2019-12-16 00:45:54 31.44 kg/m2 [facility] [place] [facility] Body temperature 2019-12-16 00:14:00 37.61 Juli Univ [facility]ity [facility] [place] [facility] Systolic blood 2019-11-30 19:28:00 164 mm[Hg] Univer sity of pressure [place] [facility] Diastolic blood 2019-11-30 19:28:00 94 mm[Hg] Unive rsity of pressure [place] [facility] Heart rate 2019-11-30 19:28:00 92 /min [facility]i [facility] [place] [facility] Respiratory rate 2019-11-30 19:28:00 20 /min Univ ersity of [place] [facility] Oxygen saturation in 2019-11-30 19:28:00 94 /min [facility] of Arterial blood by [facility] Pulse oximetry Branch Body temperature 2019-11-30 17:18:00 37.11 Juli Univ [facility] [place] [facility] Body height 2019-11-30 17:18:00 160 cm [facility]i [facility] [place] [facility] Body weight 2019-11-30 17:18:00 73.936 kg [facility] [place] [facility] BMI 2019-11-30 17:18:00 28.87 kg/m2 [facility] [place] [facility] Systolic blood 2019-11-30 19:28:00 164 mm[Hg] Univer sity of pressure [place] [facility] Diastolic blood 2019-11-30 19:28:00 94 mm[Hg] Unive rsity of pressure [place] [facility] Heart rate 2019-11-30 19:28:00 92 /min [facility]i [facility] [place] [facility] Respiratory rate 2019-11-30 19:28:00 20 /min Univ ersity of [place] [facility] Oxygen saturation in 2019-11-30 19:28:00 94 /min [facility] of Arterial blood by [place] [employer]ier Pulse oximetry Branch Body temperature 2019-11-30 17:18:00 37.11 Juli [facility] [place] [facility] Body height 2019-11-30 17:18:00 160 cm [facility] [place] [facility] Body weight 2019-11-30 17:18:00 73.936 kg [facility] [place] [facility] BMI 2019-11-30 17:18:00 28.87 kg/m2 [facility] [place] [facility] Systolic blood 2019-11-16 12:41:00 144 mm[Hg] Univer sity of pressure [place] [facility] Diastolic blood 2019-11-16 12:41:00 76 mm[Hg] Unive rsity of pressure [place] [facility] Heart rate 2019-11-16 12:41:00 74 /min [facility] [place] [facility] Body temperature 2019-11-16 12:41:00 36.89 Juli [facility] [place] [facility] Respiratory rate 2019-11-16 12:41:00 18 /min Univ [facility]ity [facility] [place] [facility] Oxygen saturation in 2019-11-16 12:41:00 96 /min [facility] Arterial blood by [place] [employer]ier Pulse oximetry Branch Body weight 2019-11-12 13:00:00 84 kg [facility] [place] [facility] BMI 2019-11-12 13:00:00 32.80 kg/m2 [facility] [place] [facility] Body height 2019-11-10 03:58:00 160 cm [facility] [place] [facility] Systolic blood 2019-08-01 22:00:00 138 mm[Hg] Univer sity of pressure [place] [facility] Diastolic blood 2019-08-01 22:00:00 75 mm[Hg] Unive rsity of pressure [place] [facility] Heart rate 2019-08-01 22:00:00 68 /min [facility] Body temperature 2019-08-01 22:00:00 36.61 Juli [facility] Respiratory rate 2019-08-01 22:00:00 16 /min [facility] Oxygen saturation in 2019-08-01 22:00:00 97 /min [facility] blood by [facility] Pulse oximetry [place] Body height 2019-08-01 04:25:00 161.3 cm [facility] Body weight 2019-08-01 04:25:00 72.485 kg [facility] BMI 2019-08-01 04:25:00 27.86 kg/m2 [facility] Procedures Procedure Date / Time Performing Clinician Source Performed TROPONIN I 2021-06-15 02:45:00 Ge Merida [facility] COVID-19 (ID NOW RAPID 2021-06-15 01:15:00 Ge Merida [facility] TESTING) [facility] CT CHEST PULMONARY 2021-06-15 00:48:44 Viplu Whitehead [facility] ANGIOGRAM Medical Branch MAGNESIUM 2021-06-15 00:09:00 Whitehead, [facility] TROPONIN I 2021-06-15 00:09:00 Whitehead, [facility] COMP. METABOLIC PANEL 2021-06-15 00:09:00 Vipul Whitehead [facility] ([id number]) [facility] CBC WITH DIFF 2021-06-15 00:09:00 Singer [facility] N-TERMINAL PRO-BNP 2021-06-15 00:09:00 [place] Vipul [facility] XR CHEST 1 VW 2021-06-14 23:53:48 Whitehead, [facility] COVID-19 (ID NOW RAPID 2021-04-09 17:04:00 Wily Stuart [facility] TESTING) [facility] XR CHEST 1 VW 2021-04-09 15:32:27 Bj Zamorano [facility] POCT GLUCOSE (AUTOMATED) 2021-04-09 12:28:00 Caryn Kim [facility] CBC WITH DIFF 2021-04-09 07:55:00 Wily Stuart [facility] BASIC METABOLIC PANEL 2021-04-09 07:53:00 Wily Stuart [facility] (NA, K, CL, CO2, GLUCOSE, Medica l Branch BUN, CREATININE, CA) POCT GLUCOSE (AUTOMATED) 2021-04-08 21:36:00 Caryn Kim [facility] POCT GLUCOSE (AUTOMATED) 2021-04-08 16:59:00 Caryn Kim [facility] POCT GLUCOSE (AUTOMATED) 2021-04-08 12:34:00 Caryn Kim [facility] AMMONIA, PLASMA 2021-04-08 09:10:00 Sigrid Roque [facility] CBC WITH DIFF 2021-04-08 09:10:00 Cristina [facility] BASIC METABOLIC PANEL 2021-04-08 09:02:00 Sigrid Roque [facility] [place] (NA, K, CL, CO2, GLUCOSE, Medica l Branch BUN, CREATININE, CA) CBC WITH DIFF 2021-04-07 08:57:00 Cristina Sigrid Ghazala [facility] BASIC METABOLIC PANEL 2021-04-07 08:50:00 Sigrid Roque [facility] [place] (NA, K, CL, CO2, GLUCOSE, Medica l Branch BUN, CREATININE, CA) MAGNESIUM 2021-04-06 10:05:00 Caryn Kim [place] [facility] COMP. METABOLIC PANEL 2021-04-06 10:05:00 Caryn Kim [facility] ([id number]) [facility] N-TERMINAL PRO-BNP 2021-04-06 10:05:00 Caryn Kim [facility] POCT GLUCOSE (AUTOMATED) 2021-04-05 21:38:00 Caryn Kim [facility] POCT GLUCOSE (AUTOMATED) 2021-04-05 16:37:00 Caryn Kim [facility] POCT GLUCOSE (AUTOMATED) 2021-04-05 12:16:00 Caryn Kim [facility] PHOSPHORUS 2021-04-05 10:01:00 Caryn Kim [facility] MAGNESIUM 2021-04-05 10:01:00 Judy jakob [facility] FERRITIN SERUM 2021-04-05 10:01:00 Bj Zamorano [facility] VITAMIN B12, LEVEL 2021-04-05 10:01:00 Bj Zamorano [facility] FOLATE 2021-04-05 10:01:00 Jaun [facility] COMP. METABOLIC PANEL 2021-04-05 10:01:00 Caryn Kim [facility] ([id number]) [facility] IRON PANEL 2021-04-05 10:01:00 Jaun [facility] CBC WITH DIFF 2021-04-05 10:01:00 Judy [facility] N-TERMINAL PRO-BNP 2021-04-05 10:01:00 Caryn Kim [facility] VITAMIN D, 25-OH 2021-04-05 10:01:00 Jaun Bj [facility] POCT GLUCOSE (AUTOMATED) 2021-04-05 01:34:00 Caryn Kim [facility] POCT GLUCOSE (AUTOMATED) 2021-04-04 22:16:00 Caryn Kim [facility] VALPROIC ACID, FREE 2021-04-04 19:45:00 Caryn Kim [facility] PROCALCITONIN 2021-04-04 19:45:00 Caryn Kim [facility] TRANSTHORACIC ECHO (TTE) 2021-04-04 19:03:47 Caryn Kim [facility] [place] POCT GLUCOSE (AUTOMATED) 2021-04-04 16:51:00 Caryn Kim [facility] POCT GLUCOSE (AUTOMATED) 2021-04-04 12:48:00 Caryn Kim [facility] ACUTE CARE VENOUS BLOOD 2021-04-04 10:17:00 Caryn Kim [facility] GAS [facility] PHOSPHORUS 2021-04-04 10:01:00 Caryn Kim [facility] MAGNESIUM 2021-04-04 10:01:00 Ozzie Mijares [facility] FERRITIN SERUM 2021-04-04 10:01:00 Bj Zamorano [facility] AMMONIA, PLASMA 2021-04-04 10:01:00 Judy jakob [facility] TROPONIN I 2021-04-04 10:01:00 Judy jakob [facility] COMP. METABOLIC PANEL 2021-04-04 10:01:00 Caryn Kim [facility] ([id number]) [facility] CBC WITH DIFF 2021-04-04 10:01:00 [facility] PROTHROMBIN TIME / INR 2021-04-04 10:01:00 Caryn Kim [facility] N-TERMINAL PRO-BNP 2021-04-04 10:01:00 Caryn Kim [facility] AMMONIA, PLASMA 2021-04-04 04:59:00 Judy jakob [facility] TROPONIN I 2021-04-04 04:59:00 Caryn Kim [facility] VALPROIC ACID, TOTAL 2021-04-04 04:59:00 Caryn Kim [facility] OSMOLALITY URINE 2021-04-04 04:52:00 Judy jakob [facility] URINE DRUG (IMMUNOASSAY) 2021-04-04 04:52:00 Caryn Kim [facility] SCREEN URINE CULTURE 2021-04-04 04:52:00 Caryn Kim [facility] PROTEIN CREAT RATIO URINE 2021-04-04 04:52:00 Caryn Kim [facility] UREA NITROGEN, URINE 2021-04-04 04:52:00 Caryn Kim [facility] SODIUM, URINE RANDOM 2021-04-04 04:52:00 Caryn Kim [facility] URINE DRUG (LCMSMS) - 2021-04-04 04:52:00 Judy [facility] SYNTHETIC OPIATES PANEL [facility] POCT GLUCOSE (AUTOMATED) 2021-04-04 04:12:00 Caryn Kim [facility] URINALYSIS 2021-04-04 01:06:00 Shanae Hall [facility] PHOSPHORUS 2021-04-03 23:48:00 [facility] URIC ACID 2021-04-03 23:48:00 [facility] MAGNESIUM 2021-04-03 23:48:00 [facility] THYROID STIMULATING 2021-04-03 23:48:00 Judy jakob [facility] HORMONE [facility] BASIC METABOLIC PANEL 2021-04-03 23:48:00 Ozzie Mijares [facility] (NA, K, CL, CO2, GLUCOSE, Medica l Branch BUN, CREATININE, CA) LIPID PANEL ([id number])(TOTAL 2021-04-03 23:48:00 Caryn Kim [facility] CHOLESTEROL, [facility] TRIGLYCERIDES, HDL) HB ECG ROUTINE & RHYTHM 2021-04-03 20:43:17 Shanae Hall [facility] AMMONIA, PLASMA 2021-04-03 20:04:00 Shanae Hall [facility] TROPONIN I 2021-04-03 20:04:00 Shanae Hall [facility] HEPATIC FUNCTION PANEL 2021-04-03 20:04:00 Shanae Hall [facility] ([id number]) (ALB,T.PRO,BILI Medical Branch T,BU/BC,ALT,AST,ALK PHOS) BASIC METABOLIC PANEL 2021-04-03 20:04:00 Shanae Hall [facility] (NA, K, CL, CO2, GLUCOSE, Medica l Branch BUN, CREATININE, CA) DIFF CONSULT 2021-04-03 20:04:00 Caryn Kim [facility] CBC WITH DIFF 2021-04-03 20:04:00 Shanae Hall [facility] GLYCOSYLATED HEMOGLOBIN 2021-04-03 20:04:00 Caryn Kim [facility] (A1C) [facility] N-TERMINAL PRO-BNP 2021-04-03 20:04:00 Shanae Hall [facility] COVID-19 (ID NOW RAPID 2021-04-03 20:04:00 Shanae Hall Un [facility] TESTING) Medical Branch LAB ONLY COVID 2021-04-03 20:04:00 Shanae Hall [facility] LACTIC ACID WHOLE BLOOD 2021-04-03 20:03:00 [facility] 1 VW 2021-04-03 20:00:10 Shanae Hall [facility] EMERGENCY DEPARTMENT 2021-04-03 05:01:00 Doctor Unassigned, [facility] DOCUMENTS [facility] PROTHROMBIN TIME / INR 2020-09-08 01:55:00 Sigrid Gallagher [facility] ACTIVATED PARTIAL 2020-09-08 01:55:00 Sigrid [facility] URINALYSIS 2020-09-08 01:55:00 Sigrid Gallagher [facility] AMMONIA, PLASMA 2020-09-08 00:59:00 Sigrid Gallagher [facility] POCT GLUCOSE (AUTOMATED) 2020-02-08 07:28:00 Ge [facility] XR CHEST 1 VW 2020-02-08 06:15:50 Ge Merida [facility] URINALYSIS 2020-02-08 03:30:00 Ge Merida [facility] TROPONIN I 2020-02-08 03:29:00 Ge Merida [facility] COMP. METABOLIC PANEL 2020-02-08 03:29:00 Ge Merida [facility] ([id number]) Medical Branch CBC WITH DIFF 2020-02-08 03:29:00 Ge Merida [facility] N-TERMINAL PRO-BNP 2020-02-08 03:29:00 Ge Merida [facility] EKG-12 LEAD 2020-02-08 03:25:41 Ge Merida [facility] POCT GLUCOSE(AGE 2020-02-08 03:21:00 Ge Merida [facility] 0-30DAYS) Medical Branch XR CHEST 1 VW COVID 2020-01-30 22:00:27 Dinorah Harry [facility] COVID-19 (ID NOW RAPID 2020-01-30 21:06:00 Dinorah Harry [facility] TESTING) Medical Branch ACUTE CARE VENOUS BLOOD 2020-01-30 20:44:00 Dinorah Harry [facility] GAS [facility] LIPASE 2020-01-30 20:41:00 Dinorah Harry [facility] TROPONIN I 2020-01-30 20:41:00 Dinorah Harry [facility] HEPATIC FUNCTION PANEL 2020-01-30 20:41:00 Dinorah Harry [facility] ([id number]) (ALB,T.PRO,BILI [facility] T,BU/BC,ALT,AST,ALK PHOS) BASIC METABOLIC PANEL 2020-01-30 20:41:00 Dinorah Harry [facility] (NA, K, CL, CO2, GLUCOSE, Medica l Branch BUN, CREATININE, CA) CBC WITH DIFF 2020-01-30 20:41:00 Dinorah Harry [facility] URINALYSIS 2020-01-30 20:41:00 Dinorah Harry [facility] N-TERMINAL PRO-BNP 2020-01-30 20:41:00 Dinorah Harry [facility] ADC / LCC - DRUG SCREEN 2020-01-30 20:41:00 Dinorah Harry [facility] TRIAGE [facility] EKG-12 LEAD 2020-01-30 20:21:42 Dinorah Harry [facility] CONSENT/REFUSAL FOR 2020-01-30 19:20:03 Doctor Unassigned, [facility] DIAGNOSIS AND TREATMENT [facility] XR CHEST 2 VW 2019-12-16 01:47:16 Oscar Rdz [facility] CT ABDOMEN PELVIS W 2019-12-16 01:45:39 Oscar Rdz [facility] CONTRAST [facility] PROTHROMBIN TIME / INR 2019-12-16 00:33:[address] 2019-12-16 00:33:00 Oscar Rdz [facility] COVID-19 (ID NOW RAPID 2019-12-16 00:33:[address] [facility] TEST[facility]) Medical Branch POCT TEST 2019-12-16 00:26:00 Oscar Rdz [facility] LIPASE 2019-12-16 00:19:00 Oscar Rdz [facility] TROPONIN I 2019-12-16 00:19:00 Oscar Rdz [facility] HEPATIC FUNCTION PANEL 2019-12-16 00:19:00 Oscar Rdz [facility] ([id number]) (ALB,T.PRO,BILI Medical Branch T,BU/BC,ALT,AST,ALK PHOS) BASIC METABOLIC PANEL 2019-12-16 00:19:00 Oscar Rdz [facility] (NA, K, CL, CO2, GLUCOSE, Medica l Branch BUN, CREATININE, CA) CBC WITH DIFFERENTIAL 2019-12-16 00:19:00 Oscar Rdz [facility] N-TERMINAL PRO-BNP 2019-12-16 00:19:00 Oscar Rdz [facility] EKG-12 LEAD 2019-12-16 00:14:24 Oscar Rdz [facility] CONSENT/REFUSAL FOR 2019-12-16 00:01:47 Doctor Unasscasandra, [facility] DIAGNOSIS AND TREATMENT [facility] CT ABDOMEN PELVIS W 2019-11-30 19:02:08 Vipul Whitehead [facility] CONTRAST [facility] LIPASE 2019-11-30 17:40:00 Vipul Whitehead [facility] COMP. METABOLIC PANEL 2019-11-30 17:40:00 Vipul Whitehead [facility] ([id number]) Medical Branch CBC WITH DIFFERENTIAL 2019-11-30 17:40:00 Singer [facility] URINALYSIS 2019-11-30 17:40:00 Whitehead, [facility] NOTICE OF PRIVACY 2019-11-30 17:11:40 Doctor Unassigned, [facility] PRACTICES [facility] ASSIGNMENT OF BENEFITS 2019-11-30 17:11:15 Doctor Unassigned, [facility] Name [facility] POCT GLUCOSE (AUTOMATED) 2019-11-16 11:02:00 Tapia, [facility]i [facility] PO[facility] GLU[facility]SE (AUTOMATED) 2019-11-16 03:12:00 Tapia, Randi Lenka [facility] EXTRA TUBE LAV 2019-11-16 01:40:00 [facility] TU[facility] LT. BLUE 2019-11-16 01:40:00 Lynda [facility] EXTRA TUBE RED 2019-11-16 01:40:00 Howell, [facility] CREATINE KINASE 2019-11-16 01:38:00 Boo [facility] MAGNESIUM 2019-11-16 01:38:00 Boo [facility] PROLACTIN 2019-11-16 01:38:00 [facility] TROPONIN I 2019-11-16 01:38:00 Boo [facility] BASIC METABOLIC PANEL 2019-11-16 01:38:00 [facility] (NA, K, CL, CO2, GLUCOSE, [facility] l Branch BUN, CREATININE, CA) POCT GLUCOSE (AUTOMATED) 2019-11-15 18:50:00 Tapia, Randi Lenka U [facility] XR KUB 2019-11-15 16:40:00 Mihai Fletcher [facility] POCT GLUCOSE (AUTOMATED) 2019-11-15 13:01:00 Tapia, Randi Lenka [facility] BASIC METABOLIC PANEL 2019-11-15 09:36:00 Trevin Ward [facility] (NA, K, CL, CO2, GLUCOSE, Medica l Branch BUN, CREATININE, CA) CBC WITH DIFFERENTIAL 2019-11-15 09:36[facility] WITH [facility]ENTIAL 2019-11-15 09:36:00 Justine [facility] POCT GLUCOSE (AUTOMATED) 2019-11-15 02:59:00 Tapia, Randi Lenka [facility] POCT GLUCOSE (AUTOMATED) 2019-11-14 21:18:00 Tapia, Randi Lenka [facility] XR KUB 2019-11-14 17:04:00 [facility] PO[facility] GLU[facility]SE ([facility]OMATED) 2019-11-14 16:44:00 Tapia, Randi Lenka [facility] MAGNESIUM 2019-11-14 10:03:00 Ed [facility] HEPATIC FUNCTION PANEL 2019-11-14 10:03:00 Trevin Ward [facility] ([id number]) (ALB,T.PRO,BILI Medical Branch T,BU/BC,ALT,AST,ALK PHOS) BASIC METABOLIC PANEL 2019-11-14 10:03:00 Trevin Ward [facility] (NA, K, CL, CO2, GLUCOSE, Medica l Branch BUN, CREATININE, CA) CBC WITH DIFFERENTIAL 2019-11-14 10:03:00 Justine [facility] PROTHROMBIN TIME / INR 2019-11-14 10:03[facility] 2019-11-14 03:05:00 Tapia, Randi Lenka [facility] CBC WITH DIFFERENTIAL 2019-11-13 23:03:00 Justine [facility] POCT GLUCOSE (AUTOMATED) 2019-11-13 22:57:00 Randi Tapia U [facility] XR KUB 2019-11-13 17:01:00 Mihai Fletcher [facility] POCT GLUCOSE (AUTOMATED) 2019-11-13 16:52:00 Randi Tapia [facility] EKG-12 LEAD 2019-11-13 16:46:33 [facility] 2019-11-13 15:06:00 Ed [facility] POCT GLUCOSE (AUTOMATED) 2019-11-13 12:54:00 Bj Zamorano [facility] MAGNESIUM 2019-11-13 09:25:00 Ed [facility] FERRITIN SERUM 2019-11-13 09:25:00 [facility] HE[facility] FUNCTION PANEL 2019-11-13 09:25:00 [facility] ([id number] (ALB,T.PRO,BILI [facility] T,BU/BC,ALT,AST,ALK PHOS) BASIC METABOLIC PANEL 2019-11-13 09:25:00 [facility] (NA, K, CL, CO2, GLUCOSE, Medica l Branch BUN, CREATININE, CA) PROFILE / HEMOGRAM 2019-11-13 09:25:00 Ed [facility] PROTHROMBIN TIME / INR 2019-11-13 09:25:00 Ed [facility] POCT GLUCOSE (AUTOMATED) 2019-11-13 04:32:00 Bj Zamorano [facility] PROFILE / HEMOGRAM 2019-11-13 03:14:00 Ed [facility] POCT GLUCOSE (AUTOMATED) 2019-11-13 00:42:00 Bj Zamorano [facility] POCT GLUCOSE (AUTOMATED) 2019-11-12 21:27:00 Bj Zamorano [facility] MAGNESIUM 2019-11-12 21:15:00 [facility] BASIC METABOLIC PANEL 2019-11-12 21:15:00 Trevin Ward [facility] (NA, K, CL, CO2, GLUCOSE, Medica l Branch BUN, CREATININE, CA) PROFILE / HEMOGRAM 2019-11-12 21:15:00 Ed [facility] TRANSFUSE PLATELETS 2019-11-12 17:56:[address] [facility] POCT GLUCOSE (AUTOMATED) 2019-11-12 16:53:00 Bj Zamorano [facility] PROFILE / HEMOGRAM 2019-11-12 15:58:00 Ed [facility] PREPARE PLATELETS 2019-11-12 15:46:[address] [facility] TRANSFUSE PACKED RBC 2019-11-12 15:36:[address] [facility] ANGIOGRAM 2019-11-12 14:33:[address] [facility] ABDOMEN/PELVIS [facility] PREPARE PACKED RBC 2019-11-12 13:34:31 Geovanna [facility] POCT GLUCOSE (AUTOMATED) 2019-11-12 12:38:00 Bj Zamorano [facility] TRANSFUSE PACKED RBC 2019-11-12 12:36:[address] [facility] POCT GLUCOSE (AUTOMATED) 2019-11-12 10:06:00 Bj Zamorano [facility] POCT GLUCOSE (AUTOMATED) 2019-11-12 10:04:00 Bj Zamorano [facility] MAGNESIUM 2019-11-12 09:59:00 Ed [facility] HEPATIC FUNCTION PANEL 2019-11-12 09:59:00 Trevin Ward [facility] ([id number]) (ALB,T.PRO,BILI Medical Branch T,BU/BC,ALT,AST,ALK PHOS) BASIC METABOLIC PANEL 2019-11-12 09:59:00 Trevin Ward [facility] (NA, K, CL, CO2, GLUCOSE, [facility]ica [facility] Branch BUN, CREATININE, CA) CBC WITH DIFFERENTIAL 2019-11-12 09:59:00 [facility] / INR 2019-11-12 09:59:00 Trevin Ward [facility] POCT GLUCOSE (AUTOMATED) 2019-11-12 04:35:00 Bj Zamorano [facility] CBC WITH DIFFERENTIAL 2019-11-12 04:28:00 [facility] POCT GLUCOSE (AUTOMATED) 2019-11-12 01:14:00 Bj Zamorano [facility] CBC WITH DIFFERENTIAL 2019-11-11 21:54:00 Ed [facility] POCT GLUCOSE (AUTOMATED) 2019-11-11 21:49:00 Bj Zamorano [facility] TRANSFUSE PACKED RBC 2019-11-11 21:25:36 Ed [facility] CLOSTRIDIUM DIFFICILE 2019-11-11 20:50:[address] [facility] PREPARE PACKED RBC 2019-11-11 18:52:37 Trevin Ward [facility] HB ABO GROUPING 2019-11-11 17:58:00 Ed [facility] POCT GLUCOSE (AUTOMATED) 2019-11-11 17:28:00 Bj Zamorano [facility] POCT GLUCOSE (AUTOMATED) 2019-11-11 16:24:00 Bj Zamorano [facility] CT ABDOMEN PELVIS W 2019-11-11 15:05:30 Mitul Cedeño [facility] CONTRAST Fer [facility] CBC WITH DIFFERENTIAL 2019-11-11 14:12:00 Trevin Ward [facility] FIBRINOGEN 2019-11-11 14:12:00 Ed [facility] POCT GLUCOSE (AUTOMATED) 2019-11-11 12:45:00 Bj Zamorano [facility] PHOSPHORUS 2019-11-11 10:42:00 Caryn Kim [facility] COMP. METABOLIC PANEL 2019-11-11 10:42:00 Judy jakob [facility] ([id number]) [facility] [place] N-TERMINAL PRO-BNP 2019-11-11 10:42:00 Caryn Kim [facility] CBC WITH DIFFERENTIAL 2019-11-11 09:32:00 Judy [facility] POCT GLUCOSE (AUTOMATED) 2019-11-11 09:29:00 Bj Zamorano [facility] MAGNESIUM 2019-11-11 05:28:00 Trevin Ward [facility] HEPATIC FUNCTION PANEL 2019-11-11 05:28:00 Trevin Ward [facility] ([id number]) (ALB,T.PRO,BILI Medical Branch T,BU/BC,ALT,AST,ALK PHOS) BASIC METABOLIC PANEL 2019-11-11 05:28:00 [facility] (NA, K, CL, CO2, GLUCOSE, Medica l Branch BUN, CREATININE, CA) PROTHROMBIN TIME / INR 2019-11-11 05:28:00 Trevin Ward [facility] CBC WITH DIFFERENTIAL 2019-11-11 05:27:00 [facility] POCT GLUCOSE (AUTOMATED) 2019-11-11 05:02:00 Bj Zamorano [facility] POCT GLUCOSE (AUTOMATED) 2019-11-11 02:27:00 Bj Zamorano [facility] XR ABDOMEN 1 VW 2019-11-11 02:15:21 Trevin Ward [facility] MRSA / MSSA SCREEN BY 2019-11-11 01:23:00 Trevin Ward [facility] PCR, NARES [facility] ALPHA FETOPROTEIN 2019-11-10 23:31:00 Dirk Redding [facility] C [facility] IRON PANEL 2019-11-10 23:31:00 Kurtis Haddad [facility] CBC WITH DIFFERENTIAL 2019-11-10 23:31:00 Trevin Ward [facility] LACTIC ACID WHOLE BLOOD 2019-11-10 23:31:00 Trevin Ward [facility] POCT GLUCOSE (AUTOMATED) 2019-11-10 21:30:00 Bj Zamorano [facility] POCT GLUCOSE (AUTOMATED) 2019-11-10 16:10:00 Bj Zamorano [facility] POCT GLUCOSE (AUTOMATED) 2019-11-10 12:52:00 Bj Zamorano [facility] LACTIC ACID WHOLE BLOOD 2019-11-10 10:28:00 Bj Zamorano [facility] POCT GLUCOSE (AUTOMATED) 2019-11-10 09:17:00 Bj Zamorano [facility] HEPATIC FUNCTION PANEL 2019-11-10 05:57:00 Bj Zamorano [facility] ([id number]) (ALB,T.PRO,BILI [facility] T,BU/BC,ALT,AST,ALK PHOS) BASIC METABOLIC PANEL 2019-11-10 05:57:00 Bj Zamorano [facility] (NA, K, CL, CO2, GLUCOSE, Medica l Branch BUN, CREATININE, CA) CBC WITH DIFFERENTIAL 2019-11-10 05:57:00 Jaun [facility] GLYCOSYLATED HEMOGLOBIN 2019-11-10 05:57:00 Bj Zamorano [facility] (A1C) [facility] N-TERMINAL PRO-BNP 2019-11-10 05:57:00 Caryn Kim [facility] LACTIC ACID WHOLE BLOOD 2019-11-10 05:56:00 Bj Zamorano [facility] POCT GLUCOSE (AUTOMATED) 2019-11-10 04:07:00 Bj Zamorano [facility] XR CHEST 1 VW 2019-11-10 02:46:27 Mihai [facility] URINE CULTURE 2019-11-10 02:31:00 Mihai [facility] BASIC METABOLIC PANEL 2019-11-10 02:02:00 [facility] (NA, K, CL, CO2, GLUCOSE, Medica l Branch BUN, CREATININE, CA) LACTIC ACID WHOLE BLOOD 2019-11-10 02:02:00 Khadijah Olivares [facility] URINALYSIS 2019-11-10 00:31:00 Khadijah Olivares [facility] EKG-12 LEAD 2019-11-10 00:30:02 Ge Merida [facility] CT ABDOMEN PELVIS W 2019-11-10 00:23:50 Khadijah Olivares [facility] CONTRAST [facility] EKG-12 LEAD 2019-11-09 23:53:36 Khadijah Olivares [facility] BLOOD CULTURE SCREEN 2019-11-09 23:18:00 Khadijah Olivares [facility] LACTIC ACID WHOLE BLOOD 2019-11-09 23:17:00 Khadijah Olivares [facility] BLOOD CULTURE SCREEN 2019-11-09 23:16:00 Khadijah Olivares [facility] LIPASE 2019-11-09 23:15:00 Khadijah Olivares [facility] COMP. METABOLIC PANEL 2019-11-09 23:15:00 Khadijah Olivares [facility] ([id number]) [facility] PROTHROMBIN TIME / INR 2019-11-09 23:15:00 [facility]hadijah Oliv[facility] PART[facility] 2019-11-09 23:15:00 [facility]hadijah [facility] HB ABO GROUPING 2019-11-09 23:15:00 Khadijah Olivaers [facility] CBC WITH DIFFERENTIAL 2019-11-09 23:15:00 Khadijah Olivares [facility] CORONAVIRUS COVID-19 2019-11-09 23:15:00 Khadijah Olivares [facility] TESTING [facility] EMERGENCY DEPARTMENT 2019-11-09 05:01:00 Doctor Unassigned, [facility] DOCUMENTS [facility] HOSPITAL ADMISSION 2019-11-09 05:01:00 Doctor Unagayle, [facility] HOSPITAL ADMISSION MISC - 2019-11-09 05:01:00 Doctor Unassigned, [facility] MEDICARE PATIENTS RIGHTS [facility] IMPORTANT MESSAGE TOTAL IRON BINDING 2019-10-07 19:40:00 Ursula Dailey [facility] HEPATIC FUNCTION PANEL 2019-10-07 19:40:00 Ursula Dailey [facility] ([id number]) (ALB,T.PRO,BILI Medical Branch T,BU/BC,ALT,AST,ALK PHOS) BASIC METABOLIC PANEL 2019-10-07 19:40:00 [facility] ([facility], K, CL, CO2, GLUCOSE, Medica l Branch BUN, CREATININE, CA) ALPHA FETOPROTEIN 2019-10-07 19:40:00 Ursula Dailey [facility] CBC WITH DIFFERENTIAL 2019-10-07 19:40:00 Ursula Dailey [facility] PROTHROMBIN TIME / INR 2019-10-07 19:40:00 Ursula Dailey [facility] ACTIVATED PARTIAL 2019-10-07 19:40:00 [facility] XR ABDOMEN 2 VW 2019-10-07 19:33:21 Blanco Soria [facility] US ABDOMEN COMPLETE 2019-10-07 19:23:36 Blanco Soria [facility] CONSENT/REFUSAL FOR 2019-10-07 18:46:28 Doctor Unassigned, [facility] DIAGNOSIS AND TREATMENT [facility] ASSIGNMENT OF BENEFITS 2019-10-07 18:46:09 Doctor Unassigned, [facility] PO[facility]SE (AUTOMATED) 2019-08-01 13:51:00 Jony Roque [facility] POCT GLUCOSE (AUTOMATED) 2019-08-01 11:39:00 Jony Roque [facility] POCT GLUCOSE (AUTOMATED) 2019-08-01 10:30:00 Jony Roque [facility] CORTISOL AM 2019-08-01 09:45:00 Cristina [facility] BASIC METABOLIC PANEL 2019-08-01 09:45:00 Jony Roque [facility] (NA, K, CL, CO2, GLUCOSE, Medica l Branch BUN, CREATININE, CA) PROCALCITONIN 2019-08-01 09:45:00 Cristina [facility] POCT GLUCOSE (AUTOMATED) 2019-08-01 09:20:00 Jony Roque [facility] POCT GLUCOSE (AUTOMATED) 2019-08-01 08:28:00 Jony Roque [facility] POCT GLUCOSE (AUTOMATED) 2019-08-01 07:30:00 Jony Roque [facility] POCT GLUCOSE (AUTOMATED) 2019-08-01 06:24:00 Jony Roque [facility] OSMOLALITY SERUM 2019-08-01 05:50:00 Jer [facility] BETA HYDROXY-BUTYRATE 2019-08-01 05:50:00 Jer [facility] BASIC METABOLIC PANEL 2019-08-01 05:50:00 Cristina [facility] (NA, K, CL, CO2, GLUCOSE, Medica l Branch BUN, CREATININE, CA) ADC,CLC OR LCC ONLY - 2019-08-01 05:50:00 Cristina [facility] INFLUENZA A & B DIRECT Medical [facility] ANTIGEN AMMONIA, PLASMA 2019-08-01 05:49:[facility] ([facility]OMATED) 2019-08-01 05:29:00 [facility] POCT GLUCOSE (AUTOMATED) 2019-08-01 04:33:00 Jony Roque [facility] POCT GLUCOSE (AUTOMATED) 2019-08-01 03:53:00 Marnie Randle [facility] POCT GLUCOSE (AUTOMATED) 2019-08-01 03:02:00 Marnie Randle [facility] XR CHEST 1 VW 2019-08-01 02:44:56 Jer [facility] PHOSPHORUS 2019-08-01 02:06:00 Jer [facility] MAGNESIUM 2019-08-01 02:06:00 Jer [facility] THYROID STIMULATING 2019-08-01 02:06:00 Cristina [facility] HORMONE [facility] COMP. METABOLIC PANEL 2019-08-01 02:06:00 Jer Marnie [facility] ([id number]) [facility] [place] CBC WITH DIFFERENTIAL 2019-08-01 02:06:00 Marnie Randle [facility] GLYCOSYLATED HEMOGLOBIN 2019-08-01 02:06:00 Marnie Randle [facility] (A1C) [facility] ACUTE CARE VENOUS BLOOD 2019-08-01 02:05:00 Marnie Randle [facility] GAS [facility] URINALYSIS 2019-08-01 01:58:00 Marnie Randle [place] [facility] Computed tomography of 2017-10-30 00:00:00 ACACIA KUMAR [facility] chest without contrast Patients [facility] Plan of Care Planned Activity Planned Date [...] Test 00:00:00 (procedure) [code = [facility] 02639660] Future Scheduled [address] [facility] Test 00:00[facility]00 malignant ne[facility] cervix (procedure) [code = 331076425] Future Scheduled [address] [facility] - Test 00:00:00 0-64 YRS (1 of 1 - Medical C enter PPSV23) [code = PNEUMOCOCCAL VACCINE 0-64 YRS (1 of 1 - PPSV23)] Future Scheduled [address] [facility] - Test 00:00:00 [facility] breast (procedure) [code = 547951357] Future Scheduled [address] [facility] Test 00:00:00 [facility] colon (procedure) [code = 802373070] Future Scheduled [facility] [code = INFLUENZA VACCINE] Future Scheduled DIABETES: [facility]AL [facility] EXAM [code = DIABETES: RETINAL EYE EXAM] Future Scheduled DIABETIC FOOT EX[facility] [code = DIABETIC FOOT EXAM] Future Scheduled COVID-19 VACCINE (1) [facility] [code = COVID-19 VACCINE (1)] Future Scheduled Screening for [facility] Test malignant neoplasm of cervix (procedure) [code = 215402021] Future Scheduled BREAST CANCER [facility] Test SCREENING [code = BREAST CANCER SCREENING] Future Scheduled COLONOSCOPY [facility]CRE[facility]ING [facility] [code = COLONOSCOPY SCREENING] Future Scheduled SHINGLES VACCINES (#1) [facility] [code = SHINGLES VACCINES (#1)] Encounters Start End Encounter Admission Attending Care Care Encounter Source Date/Time Date/Time Type Type Clinicians Facility Department ID 2021-06-20 Robby HANSEN MDA MDA [id number] 14:17:57 PROVIDER Brenden perez 2021-05-15 Emergency [facility] [id number] Univers 00:19:12 ity of [facility] 2021-05-13 Emergency [facility] [id number] Univers 01:31:24 ity [facility] 2021-05-11 Emergency [facility] [id number] Univers 09:09:35 ity [facility] 2021-05-11 Emergency [facility] [id number] Univers 07:32:28 ity [facility] 2021-06-14 2021-06-14 Emergency X FRANCES IASAIDA ERT [id number] Univers 17:37:00 22:30:00 GE ity [facility] 2021-06-14 2021-06-14 Emergency Vipul [facility] 1.2.840. 114 [id number] Univers 17:37:00 22:30:00 Ge Merida [place] 350.1.13.10 ity [facility] 4.2.7.2.686 [facility] [id number] [facility] [address] 2021-05-09 2021-05-09 Outpatient FADIA CRUZ MDA MDA [id number] 15:16:02 15:16:02 YUN perez 2021 2021-05-06 Inpatient UR [facility] [id number] 11:48:00 11:13:00 Brendenlore perez 2021-05-05 2021-05-05 Inpatient EL MDA MDA [id number] MD 16:30:38 16:44:50 Brendenlore perez 2021-05-05 2021-05-05 Inpatient EL MDA MDA [id number] MD 13:15:32 13:44:54 Brendenlore perez 2021 2021 Outpatient FADIA CRUZ MDA MDA [id number] 10:00:00 11:47:00 YUN perez 2021-04-10 2021-04-10 Transition Lazara Cardenas 1.2.840.114 [id number] Univers 00:00:00 00:00:00 of Sven Espinosa [id number] it y of [place] 4.2.7.2.686 [facility] [id number] [facility] [address] 2021-04-03 2021-04-09 [facility] Shanae Hall [facility] 1.2.84 0.114 [id number] [facility] 14:38:00 19:07:00 Encounter Ozzie Mijares 350.1.13.10 ity of Caryn Kim 4.2.7.2.686 [facility] [phone] [facility] [address] 2021-03-21 2021-03-21 Outpatient FADIA JANSEN MDA MDA [id number] 09:00:00 23:59:00 GILBERTO perez 2021-03-21 2021-03-21 Outpatient FADIA JANSEN MDA MDA [id number] 07:26:48 08:59:00 GILBERTO perez 2021-02-05 2021-02-06 Outpatient ER ISAIAS, MDA Emergency [id number] 08:34:00 14:46:00 SHIRA perez 2020-12-25 2020-12-25 Outpatient FADIA SIMENTAL MDA MDA [id number] 15:22:07 15:22:07 GATITO perez 2020-12-07 2020-12-07 Outpatient EL NANCY, MDA MDA [id number] 14:09:22 14:31:49 YUN perez 2020-11-30 2020-12-03 Inpatient ER BELLAMY-GRICELDA MDA Hosp [facility] [id number] 08:31:00 17:06:00 ROGELIO Perez n 2020-12-02 2020-12-02 Inpatient EL BELLAMY-GRICELDA MDA MDA [id number] 15:37:00 17:05:23 ROGELIO Perez n 2020-11-30 2020-11-30 Inpatient EL NADEGE, MDA MDA [id number] 14:19:17 14:22:52 WILY perez 2020-11-29 2020-11-29 Outpatient FADIA CRUZ, MDA MDA [id number] 12:50:42 23:59:00 YUN perez 2020-11-29 2020-11-29 Outpatient FADIA JANSEN, MDA MDA [id number] 13:43:09 13:43:09 GILBERTO perez 2020-11-29 2020-11-29 Outpatient FADIA JANSEN, MDA MDA [id number] 07:02:33 12:49:00 GILBRETO perez 2020-11-27 2020-11-27 Outpatient EL SREEDHAR III, MDA MDA [id number] 08:30:00 23:59:00 CRISTINA perez 2020-11-27 2020-11-27 Outpatient EL ELI III, MDA MDA [id number] 11:13:43 12:18:50 CRISTINA perez 2020-10-19 2020-10-19 Outpatient ER [facility], MDA Emergency [id number] 06:37:00 12:15:00 SHIRA perez 2020-09-07 2020-09-07 Emergency [facility] [id number] [id number] [facility] 18:32:00 20:31:00 Sigrid Johnson [place] 350.1.13.10 i ty of [place] 4.2.7.2.686 [facility] [id number] [facility] [address] 2020-08-10 2020-08-10 Outpatient FADIA CRUZ, MDA MDA [id number] MD 13:49:49 15:58:39 YUN perez 2020-08-09 2020-08-09 Outpatient FADIA JANSEN, MDA MDA [id number] MD 11:38:38 23:59:00 GILBERTO perez 2020-08-09 2020-08-09 Outpatient FADIA AJNSEN, MDA MDA [id number] MD 12:44:44 12:44:44 GILBERTO perez 2020-06-22 2020-06-22 Outpatient FADIA CRUZ, MDA MDA [id number] MD 13:55:28 15:15:41 YUN perez 2020-06-15 2020-06-15 Outpatient FADIA CRUZ, MDA MDA [id number] MD 00:00:00 00:00:00 YUN perez 2020-05-31 2020-05-31 Outpatient FADIA CRUZ, MDA MDA [id number] MD 10:51:07 10:51:07 YUN perez 2020-05-18 2020-05-18 Outpatient FADIA JANSEN, MDA MDA [id number] MD 06:45:00 23:59:00 GILBERTO perez 2020-05-18 2020-05-18 Outpatient FADIA JANSEN, MDA MDA [id number] MD 09:59:46 09:59:46 GILBERTO perez 2020-02-07 2020-02-08 Emergency [facility] 1.2.328.735 [id number] [facility] 22:06:56 03:30:00 Caamarjitabdelrahman Johnson [place] 350.1.13.10 ity [facility] 4.2.7.[address] [place] [address] [phone] [facility] [address] 2020-02-07 2020-02-08 Emergency [facility] 1.2.941.685 [id number] 22:06:56 03:30:00 Ge Johnson [place] 350.1.13.10 [place] [address] [place] [address] [phone] 084 2020-02-06 2020-02-06 Telephone MADALYN Barros 1.2.840.114 [id number] [facility] 00:00:00 00:00:00 Gloria RODRIGUEZ 350.1.13.10 ity of [facility] 4.2.7.2.686 Robert as [id number] [address] 2020-02-06 2020-02-06 [facility]phone [email or web address] 1.2.670.640 [id number] [facility] 00:00:00 00:00:00 Levon [facility] 350.1.13.10 i ty of [place] 4.2.7.2.686 Robert as Professio [id number] [facility] [address] [place] [address] [facility] 2020-02-06 2020-02-06 Telephone Papo MADALYN 1.2.840.114 [id number] 00:00:00 00:00:00 Gloria RODRIGUEZ 350.1.13.10 [facility] 4.2.7.2.[id number] [facility] 2020-02-06 2020-02-06 Telephone [email or web address] 1.2.517.360 [id number] 00:00:00 00:00:00 [facility] 350.1.13.10 [place] 4.2.7.2.686 Professio [phone] nal [facility] 2020-02-05 2020-02-05 Outpatient R MARTI [facility] [id number] Univers 16:20:00 16:20:00 NICOLA ity of [facility] 2020-02-05 2020-02-05 Laboratory Lab, [facility] Fam Pob I [facility] 1.2. 840.114 [id number] Univers 12:32:06 12:52:06 Only Nicola [facility] 350.1.13.10 ity of [place] 4.2.7.2.686 Robert as Professio [phone] Md dical [facility] [address] [place] [address] [facility] 2020-02-05 2020-02-05 Laboratory Lab, [facility] 1.2.840.114 [id number] 12:32:06 12:52:06 Only Fam Pob I Health 350.1.13.10 [place] 4.2.7.2.686 Professio [id number] nal [facility] Office [facility] 2020-02-05 2020-02-05 Outpatient R [facility] [id number] Univers 12:00:00 12:00:00 [id number] ity of [facility] 2020-02-05 2020-02-05 Outpatient R [facility] [id number] Univers 12:00:00 12:00:00 ity of [facility] 2020-01-30 2020-01-30 Emergency [facility], [facility] 1.2.922.298 [id number] [facility] 14:49:44 18:01:00 Dinorah Ortiz 350.1.13.10 ity of [place] 4.2.7.2.686 [facility] [phone] [facility] [address] [place] [address] 2020-01-30 2020-01-30 Emergency [facility], [facility] 1.2.694.570 [id number] 14:49:44 18:01:00 Dinorah Ortiz 350.1.13.10 [place] 4.2.7.2.686 [place] [id number] [facility] 2020-01-30 2020-01-30 Orders Doctor BERGMAN 1.2.840.114 [id number] Univers 00:00:00 00:00:00 Only Unassigned, MICHAEL 350.1.13.10 ity of [place] [facility] 4.2.7.2.686 [facility] [id number] [facility] [address] [place] 2020-01-30 2020-01-30 Orders Doctor BERGMAN 1.2.840.114 [id number] 00:00:00 00:00:00 Only Unassigned, MICHAEL 350.1.13.10 [place] [facility] [id number] 009 2020-01-04 2020-01-04 Outpatient FADIA CRUZ, MDA MDA [id number] 00:00:00 00:00:00 YUN perez 2020-01-03 2020-01-03 Outpatient FADIA GARCIA, MDA MDA [id number] 00:00:00 00:00:00 RICKIE perez 2020-01-03 2020-01-03 Outpatient FADIA JANSEN, MDA MDA [id number] 00:00:00 00:00:00 GILBERTO perez 2020-01-01 2020-01-01 Emergency MDA MDA [id number] 08:14:08 08:14:08 Brenden perez 2019-12-15 2019-12-16 Emergency X OSCAR RDZ [facility] ERT [id number] Univers 19:10:30 01:03:00 itsanam [facility] 2019-12-15 2019-12-16 Emergency Oscar Rdz [facility] 1.2.840.114 [id number] Univers 19:10:30 01:03:00 T [place] 350.1.13.10 i ty of [place] 4.2.7.2.686 [facility] [id number] [address] 2019-12-15 2019-12-16 Emergency Oscar Rdz [facility] 1.2.840.114 [id number] 19:10:30 01:03:00 T [place] 350.1.13.10 [place] 4.2.7.2.686 [place] [id number] 084 2019-12-02 2019-12-02 Emergency ER KOREY [facility] Emergency [id number] [place] 07:39:47 10:44:00 VIKASH perez 2019-11-30 2019-11-30 Emergency X [facility] [[email or web address]] ERT [id number] Univers 12:20:39 14:51:00 VIPUL padilla [facility] 2019-11-30 2019-11-30 [facility] 1.2.517.369 [id number] [facility] 12:20:39 14:51:00 Vipul Angel 350.1.13.10 i ty of [place] 4.2.7.2.686 [facility] [phone] [address] 2019-11-30 2019-11-30 Emergency [email or web address] 1.2.310.737 [id number] 12:20:39 14:51:00 Vipul [place] 350.1.13.10 [place] 4.2.7.2.686 [place] [phone] [facility] 2019-11-17 2019-11-17 Transition Lazara Cardenas 1.2.840.114 [id number] Univers 00:00:00 00:00:00 of Sven Espinosa 350.1.13.10 it y of [place] 4.2.7.2.686 [facility] [phone] [facility] [address] 2019-11-17 2019-11-17 Transition Lazara Cardenas 1.2.840.114 [id number] 00:00:00 00:00:00 of Care Yas Valdezy 350.1.13.10 [place] 4.2.7.2.686 [id number] 403 2019-11-09 2019-11-16 [id number] Univers 17:51:10 13:56:00 ity of [facility] 2019-11-09 2019-11-16 [facility] 1.2.840.1 14 [id number] Univers 17:51:10 13:56:00 Encounter Beatriz Holm 350.1.13.10 ity of [facility] 4.2.7.2.686 [place] Chuck Moreno [phone] Medical Eduardo Tapiah Lenka [address] [place] 2019-10-07 2019-10-07 [facility] 1.2.840.114 [id number] Univers 13:40:00 23:59:00 Encounter Naomie Ortiz 350.1.13.10 ity [facility] 4.2.7.2.686 [facility] [phone] [facility] [address] [place] 2019-10-07 2019-10-07 Outpatient [facility] [id number] [id number] Univers 14:30:00 14:30:00 [id number] ity of [facility] 2019-10-07 2019-10-07 Dispute Specialist Yaya Pedroza Lab Main [facility] 1.2.8 40.114 [id number] Univers 13:48:12 14:03:12 Visit [facility] Angel 350.1.13.10 ity [facility] 4.2.7.2.686 Rickie Vega [phone] Md dical [facility] 353 [facility] 2019-10-07 2019-10-07 Outpatient [facility] [id number] Univers 13:39:15 13:39:00 ity of [facility] 2019-10-07 2019-10-07 [facility] 1.2.840.114 [id number] Univers 13:39:00 13:39:00 Encounter Naomie Ortiz 350.1.13.10 ity of [place] 4.2.7.2.686 [facility] [phone] [facility] 8[address] 2019-08-04 2019-08-04 [facility] [id number] 13:42:00 13:42:00 t [facility] [place] 2019-08-03 2019-08-03 Transition Lazara Bernal 1.2.840.114 [id number] Univers 00:00:00 00:00:00 of Sven Espinosa 350.1.13.10 it y of [place] 4.2.7.2.686 [facility] [phone] [facility] [address] 2019-08-02 2019-08-02 [facility] [id number] 08:30:00 08:30:00 t [facility] [place] 2019-07-31 2019-08-01 Inpatient X CRISTINA [facility] KAYLEY [id number] Univers 19:42:06 16:46:00 SHEBEY ity [facility] 2019-07-31 2019-08-01 [facility] 1.2.840.1 14 [id number] Univers 19:42:06 16:46:00 Encounter Jony Roque 350.1.13.10 ity [facility] 4.2.7.2.686 [facility] [id number] [facility] [address] 2019-07-23 2019-07-23 Outpatient R RADIOLOGY [facility] [id number] Univers 12:15:11 23:59:00 ity of [facility] 2017-11-17 2017-11-17 Outpatient FADIA NAIR MDA MDA [id number] 00:00:00 00:00:00 VIKASH perez 2017-10-30 2017-10-31 Discharged ER ACACIA KUMAR [facility] A[id number] [facility] 01:06:00 13:30:00 Inpatient 07 Luke s - (obs) Patient s [facility] 2017-05-23 2017-05-24 Departed [facility] [id number] 19:37:00 01:16:00 Emergency 41 Luke s - Room Patient s [facility] 2017-05-19 2017-05-20 Departed [facility] [id number] 17:55:00 02:48:00 Emergency 74 Luke s - Room Patient [facility] 2017-04-18 2017-04-18 Registered ER ANDRES, [facility] A[id number] [facility] 01:09:00 01:09:00 Emergency JEF 56 ke s - Room Patient [facility] 2017-01-06 2017-01-06 Departed [facility] [id number] 12:49:00 19:28:00 Emergency 03 [place] - Room Patient [facility] Results Test Description Test Time Test Comments Results Result Comments Source TROPONIN I 2021-06-15 03:15:29 Test Item Value Reference Range Interpretation Comme nts TROPONIN I (test code = 0.010 ng/mL See_Comment [Au tomated message] The 7818684687) system which ge nerated this result tra nsmitted reference range : <=0.034. The reference r pardeep was not used to int erpret this result as normal/abnormal . NU (test code = NU) Reference (Normal) Range (defined by the 99th percentile reference [...] biotin. Lab Interpretation Normal (test code = 79984-4) [facility] WITH [id number] 00:54:58 Test Item Value Reference Range Interpretation Comments [...] 11.6-15.0 L 718-7) HCT (test code = 28.6 % 35.7-45.2 L 4544-3) MCV (test code = 95.3 fL 80.6-95.5 787-2) MCH (test code = 30.0 pg 25.9-32.8 785-6) MCHC (test code = 31.5 g/dL 31.6-35.1 L 786-4) RDW-SD (test code = 56.8 fL 39.0-49.9 H 06368-4) RDW-CV (test code = 16.2 % 12.0-15.5 H 788-0) PLT (test code = See_Comment LL [Automated 777-3) message] The system which generated this result transmitted reference range : 166 - 358 10*3/?L. The reference range was not used to interpret this result as normal/abnormal . MPV (test code = 9.4 fL 9.5-12.9 L 11143-6) NRBC/100 WBC (test See_Comment [Automat ed code = 0149168261) message] The system which generated this result transmitted reference range : 0.0 - 10.0 /100 WBCs. The reference range was not used to interpret this result as normal/abnormal . NRBC x10^3 (test code <0.01 See_Comment [Auto mated = 7843712680) message] The system which generated this result transmitted reference range : 10*3/?L. The reference range was not used to interpret this result as normal/abnormal . GRAN MAT (NEUT) % 64.5 % (test code = 770-8) IMM GRAN % (test code 0.90 % = 2336802644) LYMPH % (test code = 27.4 % 736-9) MONO % (test code = 6.0 % 5905-5) EOS % (test code = 0.9 % 713-8) BASO % (test code = 0.3 % 706-2) GRAN MAT x10^3(ANC) 2.04 10*3/uL 1.88-7.09 (test code = 8228092543) IMM GRAN x10^3 (test 0.03 10*3/uL 0.00-0.06 code = 9268337179) LYMPH x10^3 (test 0.87 10*3/uL 1.32-3.29 L code = 731-0) MONO x10^3 (test code 0.19 10*3/uL 0.33-0.92 L = 742-7) EOS x10^3 (test code 0.03 10*3/uL 0.03-0.39 = 711-2) BASO x10^3 (test code <0.03 0.01-0.07 = 704-7) PLT ESTIMATE (test Critically Normal AA code = 9317-9) Decreased Lab Interpretation Abnormal (test code = 57561-5) [facility] [id number] 00:50:13 Test Item Value Reference Interpretation Comments Range TROPONIN I (test 0.008 ng/mL See_Comment [Automated code = 9377162950) message] The system which generated this result [...] biotin. Lab Interpretation Normal (test code = 33993-1) [id number] 00:47:05 Test Item Value Reference Range Interpretation Comments NT-proBNP (test code 1770 pg/mL See_Comment H [Autom ated = 4808459245) message] The system which generated this result transmitted reference range : <=125. The reference range was not used to interpret this result as normal/abnormal . NU (test code = NU) Biotin has been reported to cause a negative bias, interpret results relative to patient's use of biotin. Lab Interpretation Abnormal (test code = 41537-5) [facility] 00[facility]38:20 Test Item Value Reference Range Interpretation Comments MAGNESIUM (test code = 6440061993) 1.5 mg/dL 1.7-2.4 L Lab Interpretation (test code = Abnormal 71535-8) [facility]. METABOLIC PANEL (96086)2021-06-15 00:38:04 Test Item Value Reference Range Interpretation Comments NA (test code = 135 mmol/L 135-145 6169738296) K (test code = 4.8 mmol/L 3.5-5.0 3331430486) CL (test code = 101 mmol/L 98-108 3356701882) CO2 TOTAL (test code = 32 mmol/L 23-31 H 8490826888) AGAP (test code = 2-16 4087713319) BUN (test code = 19 mg/dL 7-23 8734138723) GLUCOSE (test code = 286 mg/dL 70-110 H 9913279963) CREATININE (test code = 0.96 mg/dL 0.50-1.04 2063571905) TOTAL BILI (test code = 0.8 mg/dL 0.1-1.2 1186121519) CALCIUM (test code = 8.4 mg/dL 8.6-10.6 L 8590212610) T PROTEIN (test code = 6.6 g/dL 6.3-8.2 5972541519) ALBUMIN (test code = 2.9 g/dL 3.5-5.0 L 4180496424) ALK PHOS (test code = 85 U/L 34-122 7825354005) ALTv (test code = 14 U/L 5-35 1742-6) AST(SGOT) (test code = 28 U/L 13-40 3016991144) eGFR (test code = mL/min/1.73m2 2332756689) NU (test code = NU) Association of [...] tests). Lab Interpretation Abnormal (test code = 06935-0) [facility])2021-04-09 12:49:00 Test Item Value Reference Range Interpretation Comments POCT GLU (test code = 3817239304) 191 mg/dL 70-110 H Lab Interpretation (test code = Abnormal 97496-1) [facility] (NA, K, CL, CO2, GLUCOSE, BUN, CREATININE, CA)2021-04-09 10:39:29 Test Item Value Reference Range Interpretation Comments NA (test code = 135 mmol/L 135-145 6861187919) K (test code = 3.7 mmol/L 3.5-5.0 5665343676) CL (test code = 95 mmol/L 98-108 L 1883818556) CO2 TOTAL (test code = 34 mmol/L 23-31 H 4221269547) AGAP (test code = 2-16 3332889497) BUN (test code = 35 mg/dL 7-23 H 1709636768) GLUCOSE (test code = 260 mg/dL 70-110 H 1999565768) CREATININE (test code = 1.22 mg/dL 0.50-1.04 H 2478601971) CALCIUM (test code = 8.4 mg/dL 8.6-10.6 L 7844606125) eGFR (test code = mL/min/1.73m2 1456529921) NU (test code = NU) Association of [...] tests). Lab Interpretation Abnormal (test code = 47000-7) [facility] WITH [id number] 10:35:25 Test Item Value Reference Range Interpretation [...] (test code = 55.9 fL 39.0-49.9 H 42228-1) RDW-CV (test code = 16.0 % 12.0-15.5 H 788-0) PLT (test code = See_Comment LL [Automated 777-3) message] The sy stem which generated this result transmitted reference range : 166 - 358 10*3/ ?L. The reference r pardeep was not used to interpret this result as normal/abnormal . MPV (test code = 10.3 fL 9.5-12.9 37069-1) NRBC/100 WBC (test See_Comment [Automat ed code = 9166947064) message] The system which generated this result transmitted reference range : 0.0 - 10.0 /100 WBCs. The refer ence range was not u sed to interpret th is result as normal/abnormal . NRBC x10^3 (test code <0.01 See_Comment [Auto mated = 6731012073) message] The s ystem which generated this result transmitted reference range : 10*3/?L. The reference range was not used to interpret this result as normal/abnormal . GRAN MAT (NEUT) % 54.8 % (test code = 770-8) IMM GRAN % (test code 0.30 % = 8872310780) LYMPH % (test code = 38.1 % 736-9) MONO % (test code = 5.1 % 5905-5) EOS % (test code = 1.1 % 713-8) BASO % (test code = 0.6 % 706-2) GRAN MAT x10^3(ANC) 1.94 10*3/uL 1.88-7.09 (test code = 7173090078) IMM GRAN x10^3 (test <0.03 0.00-0.06 code = 1545878455) LYMPH x10^3 (test code 1.35 10*3/uL 1.32-3.29 = 731-0) MONO x10^3 (test code 0.18 10*3/uL 0.33-0.92 L = 742-7) EOS x10^3 (test code = 0.04 10*3/uL 0.03-0.39 711-2) BASO x10^3 (test code <0.03 0.01-0.07 = 704-7) Lab Interpretation Abnormal (test code = 74680-3) [facility] GLUCOSE (AUTOMATED)2021-04-08 21:40:17 Test Item Value Reference Range Interpretation Comments POCT GLU (test code = [id number]) 323 mg/dL 70-110 H Lab Interpretation (test code = Abnormal 86776-3) [facility] GLUCOSE (AUTOMATED)2021-04-08 17:09:48 Test Item Value Reference Range Interpretation Comments POCT GLU (test code = [id number]) 406 mg/dL 70-110 H Lab Interpretation (test code = Abnormal 76323-5) [facility] GLUCOSE (AUTOMATED)2021-04-08 12:42:19 Test Item Value Reference Range Interpretation Comments POCT GLU (test code = [id number]) 148 mg/dL 70-110 H Lab Interpretation (test code = Abnormal 39415-0) [facility] WITH [id number] 11:06:27 Test Item Value Reference Range Interpretation [...] (test code = 56.1 fL 39.0-49.9 H 30972-7) RDW-CV (test code = 16.1 % 12.0-15.5 H 788-0) PLT (test code = See_Comment LL [Automated 777-3) message] The sy stem which generated this result transmitted reference range : 166 - 358 10*3/ ?L. The reference r pardeep was not used to interpret this result as normal/abnormal . MPV (test code = 10.4 fL 9.5-12.9 45528-9) NRBC/100 WBC (test See_Comment [Automat ed code = [id number]) message] The system which generated this result transmitted reference range : 0.0 - 10.0 /100 WBCs. The refer ence range was not u sed to interpret th is result as normal/abnormal . NRBC x10^3 (test code <0.01 See_Comment [Auto mated = 5088815942) message] The s ystem which generated this result transmitted reference range : 10*3/?L. The reference range was not used to interpret this result as normal/abnormal . GRAN MAT (NEUT) % 54.4 % (test code = 770-8) IMM GRAN % (test code 0.00 % = 6560610758) LYMPH % (test code = 37.3 % 736-9) MONO % (test code = 6.8 % 5905-5) EOS % (test code = 1.2 % 713-8) BASO % (test code = 0.3 % 706-2) GRAN MAT x10^3(ANC) 1.75 10*3/uL 1.88-7.09 L (test code = 4475524229) IMM GRAN x10^3 (test <0.03 0.00-0.06 code = 0901188680) LYMPH x10^3 (test code 1.20 10*3/uL 1.32-3.29 L = 731-0) MONO x10^3 (test code 0.22 10*3/uL 0.33-0.92 L = 742-7) EOS x10^3 (test code = 0.04 10*3/uL 0.03-0.39 711-2) BASO x10^3 (test code <0.03 0.01-0.07 = 704-7) Lab Interpretation Abnormal (test code = 83659-2) [facility] METABOLIC PANEL (NA, K, CL, CO2, GLUCOSE, BUN, CREATININE, CA)2021-04-08 10:21:40 Test Item Value Reference Range Interpretation Comments NA (test code = 136 mmol/L 135-145 4274386423) K (test code = 4.0 mmol/L 3.5-5.0 5986953466) CL (test code = 98 mmol/L 98-108 2942983457) CO2 TOTAL (test code = 36 mmol/L 23-31 H 9910011358) AGAP (test code = 2-16 8823250037) BUN (test code = 34 mg/dL 7-23 H 9875668995) GLUCOSE (test code = 193 mg/dL 70-110 H 3967301820) CREATININE (test code = 1.21 mg/dL 0.50-1.04 H 5955179265) CALCIUM (test code = 8.2 mg/dL 8.6-10.6 L 3016626803) eGFR (test code = mL/min/1.73m2 3753674794) NU (test code = NU) Association of [...] tests). Lab Interpretation Abnormal (test code = 03445-4) [facility] [id number] 09:39:39 Test Item Value Reference Range Interpretation Comments AMMONIA (test code = 3324966968) 25 umol/L 9-33 Lab Interpretation (test code = Normal 86485-9) [facility] WITH [id number] 13:08:43 Test Item Value Reference Range Interpretation Comments WBC (test code = See_Comment L [Automated 7821-2) message] The system which generated this result transmitted reference range : 4.30 - 11.10 10*3/?L. The reference range was not used to interpret this result as normal/abnormal . RBC (test code = See_Comment L [Automated 794-8) message] The system which generated this result [...] (test code = 55.4 fL 39.0-49.9 H 98543-2) RDW-CV (test code = 16.2 % 12.0-15.5 H 788-0) PLT (test code = See_Comment LL [Automated 777-3) message] The system which generated this result transmitted reference range : 166 - 358 10*3/?L. The reference range was not used to interpret this result as normal/abnormal . MPV (test code = 11.8 fL 9.5-12.9 08041-2) NRBC/100 WBC (test See_Comment [Automat ed code = 1590205381) message] The system which generated this result transmitted reference range : 0.0 - 10.0 /100 WBCs. The reference range was not used to interpret this result as normal/abnormal . NRBC x10^3 (test code <0.01 See_Comment [Auto mated = 8075841806) message] The system which generated this result transmitted reference range : 10*3/?L. The reference range was not used to interpret this result as normal/abnormal . GRAN MAT (NEUT) % 50.4 % (test code = 770-8) IMM GRAN % (test code 0.30 % = 6770300776) LYMPH % (test code = 41.8 % 736-9) MONO % (test code = 6.3 % 5905-5) EOS % (test code = 0.9 % 713-8) BASO % (test code = 0.3 % 706-2) GRAN MAT x10^3(ANC) 1.69 10*3/uL 1.88-7.09 L (test code = 3356881146) IMM GRAN x10^3 (test <0.03 0.00-0.06 code = 0876273201) LYMPH x10^3 (test 1.40 10*3/uL 1.32-3.29 code = 731-0) MONO x10^3 (test code 0.21 10*3/uL 0.33-0.92 L = 742-7) EOS x10^3 (test code 0.03 10*3/uL 0.03-0.39 = 711-2) BASO x10^3 (test code <0.03 0.01-0.07 = 704-7) PLT ESTIMATE (test Critically Normal AA code = 9317-9) Decreased Lab Interpretation Abnormal (test code = 00243-7) [facility] METABOLIC PANEL (NA, K, CL, CO2, GLUCOSE, BUN, CREATININE, CA)2021-04-07 11:05:41 Test Item Value Reference Range Interpretation Comments NA (test code = 134 mmol/L 135-145 L 7472535993) K (test code = 4.4 mmol/L 3.5-5.0 0922531313) CL (test code = 95 mmol/L 98-108 L 0711337611) CO2 TOTAL (test code = 38 mmol/L 23-31 H 6817155854) AGAP (test code = 2-16 L 4775343858) BUN (test code = 27 mg/dL 7-23 H 2367236974) GLUCOSE (test code = 72 mg/dL 70-110 6844771573) CREATININE (test code = 0.99 mg/dL 0.50-1.04 1325122907) CALCIUM (test code = 8.1 mg/dL 8.6-10.6 L 0087633832) eGFR (test code = mL/min/1.73m2 5323756010) NU (test code = NU) Association of [...] tests). Lab Interpretation Abnormal (test code = 27299-5) [facility] 12:24:07 Test Item Value Reference Range Interpretation Comments POCT GLU (test code = 2306426520) 114 mg/dL 70-110 H Lab Interpretation (test code = Abnormal 48225-0) [facility] [id number] 11:12:38 Test Item Value Reference Range Interpretation Comments NT-proBNP (test code 753 pg/mL See_Comment H [Autom ated = 6157591836) message] The system which generated this result transmitted reference range : <=125. The reference range was not used to interpret this result as normal/abnormal . NU (test code = NU) Biotin has been reported to cause a negative bias, interpret results relative to patient's use of biotin. Lab Interpretation Abnormal (test code = 39049-1) [facility]. METABOLIC PANEL (03341)2021-04-06 11:03:39 Test Item Value Reference Range Interpretation Comments NA (test code = 138 mmol/L 135-145 4439237175) K (test code = 3.7 mmol/L 3.5-5.0 9685240547) CL (test code = 95 mmol/L 98-108 L 2927740859) CO2 TOTAL (test code = 37 mmol/L 23-31 H 5771495712) AGAP (test code = 2-16 6931877203) BUN (test code = 23 mg/dL 7-23 6269955710) GLUCOSE (test code = 137 mg/dL 70-110 H 9422204393) CREATININE (test code = 1.04 mg/dL 0.50-1.04 0338381326) TOTAL BILI (test code = 0.6 mg/dL 0.1-1.3 5173917197) CALCIUM (test code = 8.3 mg/dL 8.6-10.6 L 1529838560) T PROTEIN (test code = 6.7 g/dL 6.3-8.2 0615057684) ALBUMIN (test code = 3.0 g/dL 3.5-5.0 L 1507398813) ALK PHOS (test code = 112 U/L 34-122 6941101900) ALTv (test code = 22 U/L 5-35 1742-6) AST(SGOT) (test code = 44 U/L 13-40 H 3401571915) eGFR (test code = mL/min/1.73m2 4124266504) NU (test code = NU) Association of [...] tests). Lab Interpretation Abnormal (test code = 68532-0) [facility]21[facility] 11:03:39 Test Item Value Reference Range Interpretation Comments MAGNESIUM (test code = 0769878796) 2.1 mg/dL 1.7-2.4 Lab Interpretation (test code = Normal 65335-7) [facility]2021-04-05 21:42:42 Test Item Value Reference Range Interpretation Comments POCT GLU (test code = 7000118039) 234 mg/dL 70-110 H Lab Interpretation (test code = Abnormal 50920-6) [facility] D, [id number] 16:58:06 Test Item Value Reference Range Interpretation Comments VIT D 25OH (test code = <13 25-80 L 46378-4) NU (test code = NU) Deficiency: <20 ng/mLInsufficiency: 20-24 ng/mLOptimal: 25-80 ng/mL Lab Interpretation (test Abnormal code = 02870-6) [facility]IN B12, [id number] 16:30:39 Test Item Value Reference Range Interpretation Comments VIT B12 (test code = 760 pg/mL 240-930 0540382460) NU (test code = NU) Biotin has been reported to cause a positive bias, interpret results relative to patient's use of biotin. Lab Interpretation (test Normal code = 56877-5) [facility] 16:20:34 Test Item Value Reference Range Interpretation Comments FOLATE SER (test code = 9488316450) 8.3 ng/mL 3.0-20.0 Lab Interpretation (test code = Normal 11455-0) [facility] HospitalFERRITIN [id number] 12:52:39 Test Item Value Reference Range Interpretation Comments FERRITIN (test code = 81.8 ng/mL 11.0-264.0 2999280726) NU (test code = NU) Biotin has been reported to cause a negative bias, interpret results relative to patient's use of biotin. Lab Interpretation (test Normal code = 19914-4) [facility] [id number] 12:51:15 Test Item Value Reference Range Interpretation Comments FERRITIN (test code = 82.3 ng/mL 11.0-264.0 2163856686) NU (test code = NU) Biotin has been reported to cause a negative bias, interpret results relative to patient's use of biotin. Lab Interpretation (test Normal code = 58635-7) [facility]2021-04-05 12:46:25 Test Item Value Reference Range Interpretation Comments POCT GLU (test code = 2296775842) 58 mg/dL 70-110 L Lab Interpretation (test code = Abnormal 47289-0) [facility] HospitalIRON [id number] 12:36:55 Test Item Value Reference Range Interpretation Comments IRON (test code = 8487035159) 72 ug/dL 50-160 TIBC (test code = 3783497582) 354 ug/dL 250-410 % FE SAT (test code = 5526260042) 20 % 20-50 Lab Interpretation (test code = Normal 98930-9) [facility]2021-[facility]-23 12:27:58 Test Item Value Reference Range Interpretation Comments MAGNESIUM (test code = 6398285691) 1.4 mg/dL 1.7-2.4 L Lab Interpretation (test code = Abnormal 33683-8) [facility]COMP[facility] METABOLIC PANEL (35456)2021-04-05 12:27:53 Test Item Value Reference Range Interpretation Comments NA (test code = 138 mmol/L 135-145 7404081407) K (test code = 3.3 mmol/L 3.5-5.0 L 2657888270) CL (test code = 98 mmol/L 98-108 1633135541) CO2 TOTAL (test code = 39 mmol/L 23-31 H 9737653219) AGAP (test code = 2-16 L 6755266997) BUN (test code = 23 mg/dL 7-23 7940360466) GLUCOSE (test code = 58 mg/dL 70-110 L 6855539080) CREATININE (test code = 1.00 mg/dL 0.50-1.04 1402154719) TOTAL BILI (test code = 0.7 mg/dL 0.1-1.2 5697907997) CALCIUM (test code = 8.5 mg/dL 8.6-10.6 L 2092255163) T PROTEIN (test code = 6.7 g/dL 6.3-8.2 3028282532) ALBUMIN (test code = 3.0 g/dL 3.5-5.0 L 7694884305) ALK PHOS (test code = 88 U/L 34-122 3373413133) ALTv (test code = 20 U/L 5-35 1742-6) AST(SGOT) (test code = 43 U/L 13-40 H 0844428677) eGFR (test code = mL/min/1.73m2 9334715191) NU (test code = NU) Association of [...] tests). Lab Interpretation Abnormal (test code = 13446-5) [facility]PH[facility]2021-[facility]-23 12:27:33 Test Item Value Reference Range Interpretation Comments PHOSPHORUS (test code = 7573424818) 4.1 mg/dL 2.5-5.0 Lab Interpretation (test code = Normal 81483-8) [facility]N-[facility]MINAL [id number] 12:26:37 Test Item Value Reference Range Interpretation Comments NT-proBNP (test code 1770 pg/mL See_Comment H [Autom ated = 9816260510) message] The system which generated this result transmitted reference range : <=125. The reference range was not used to interpret this result as normal/abnormal . NU (test code = NU) Biotin has been reported to cause a negative bias, interpret results relative to patient's use of biotin. Lab Interpretation Abnormal (test code = 64743-4) [facility] WITH [id number] 11:52:16 Test Item Value Reference Range Interpretation [...] (test code = 56.6 fL 39.0-49.9 H 96986-4) RDW-CV (test code = 16.2 % 12.0-15.5 H 788-0) PLT (test code = See_Comment LL [Automated 777-3) message] The system which generated this result transmit thong reference range : 166 - 358 10*3/ ?L. The reference range was not u sed to interpret th is result as normal/abnormal . MPV (test code = 9.6 fL 9.5-12.9 24342-4) IPF % (test code = 1.7 % 1.3-7.7 Platelet count 4795459150) measured by fluorescence method. NRBC/100 WBC (test See_Comment [Automat ed code = 7146947838) message] The system which generated this result transmit thong reference range : 0.0 - 10.0 /100 WBCs. The reference range was not used to interpret this result as normal/abnormal . NRBC x10^3 (test code <0.01 See_Comment [Auto mated = 3660124520) message] The system which generated this result transmit thong reference range : 10*3/?L. The reference range was not used to interpret this result as normal/abnormal . GRAN MAT (NEUT) % 53.0 % (test code = 770-8) IMM GRAN % (test code 0.40 % = 6639529551) LYMPH % (test code = 37.6 % 736-9) MONO % (test code = 7.0 % 5905-5) EOS % (test code = 1.2 % 713-8) BASO % (test code = 0.8 % 706-2) GRAN MAT x10^3(ANC) 1.28 10*3/uL 1.88-7.09 L (test code = 8307480364) IMM GRAN x10^3 (test <0.03 0.00-0.06 code = 7355830892) LYMPH x10^3 (test 0.91 10*3/uL 1.32-3.29 L code = 731-0) MONO x10^3 (test code 0.17 10*3/uL 0.33-0.92 L = 742-7) EOS x10^3 (test code 0.03 10*3/uL 0.03-0.39 = 711-2) BASO x10^3 (test code <0.03 0.01-0.07 = 704-7) PLT ESTIMATE (test Critically Normal AA code = 9317-9) Decreased Lab Interpretation Abnormal (test code = 06909-8) [facility]PROCALCITONIN2021-09-23 07:59:26 Test Item Value Reference Range Interpretation Comments Procalcitonin (test 0.05 ng/mL <0.07 code = 9545226517) NU (test code = NU) INTERPRETATION OF [...] lung abscess/empyema. For further information please refer to:[email or web address] Lab Interpretation Normal (test code = 84745-4) [facility] HospitalVALPROIC ACID, [id number] 07:31:01 Test Item Value Reference Range Interpretation Comments Valproic Acid, Free 6.1 ug/mL 4.0-15.0 (test code = 3628314412) NU (test code = UN) Toxic Range: ? Greater than 15 ug/mL Test developed and characteristics determined by [facility]. Lab Interpretation Normal (test code = 90640-6) [facility]2021-04-05 01:36:59 Test Item Value Reference Range Interpretation Comments POCT GLU (test code = 7524561722) 218 mg/dL 70-110 H Lab Interpretation (test code = Abnormal 22200-7) [facility] HospitalFERRITIN [id number] 00:12:31 Test Item Value Reference Range Interpretation Comments FERRITIN (test code = 87.2 ng/mL 11.0-264.0 9869649508) NU (test code = NU) Biotin has been reported to cause a negative bias, interpret results relative to patient's use of biotin. Lab Interpretation (test Normal code = 14284-5) [facility] HospitalDIFF CONSULT [id number] 23:16:01 LEUKOCYTOPENIA WITH ABSOLUTE LYMPHOCYTOPENIA, MONOCYTOPENIA, AND EOSINOPENIA. NORMOCYTIC HYPOCHROMICANEMIA. SEVERE THROMBOCYTOPENIA.[facility] GLUCOSE (AUTOMATED)2021-04-04 22:23:28 Test Item Value Reference Range Interpretation Comments POCT GLU (test code = 6252542043) 194 mg/dL 70-110 H Lab Interpretation (test code = Abnormal 93094-8) [facility] GLUCOSE (AUTOMATED)2021-04-04 16:56:37 Test Item Value Reference Range Interpretation Comments POCT GLU (test code = 8223152227) 161 mg/dL 70-110 H Lab Interpretation (test code = Abnormal 63541-3) [facility] GLUCOSE (AUTOMATED)2021-04-04 12:59:40 Test Item Value Reference Range Interpretation Comments POCT GLU (test code = 9701867367) 116 mg/dL 70-110 H Lab Interpretation (test code = Abnormal 91128-3) [facility] HospitalTROPONIN [id number] 12:27:33 Test Item Value Reference Interpretation Comments Range TROPONIN I (test 0.011 ng/mL See_Comment [Automated code = 7095862058) message] The system which generated this result [...] biotin. Lab Interpretation Normal (test code = 89386-0) [facility] HospitalN-TERMINAL [id number] 12:24:30 Test Item Value Reference Range Interpretation Comments NT-proBNP (test code 3470 pg/mL See_Comment H [Autom ated = 7796016065) message] The system which generated this result transmitted reference range : <=125. The reference range was not used to interpret this result as normal/abnormal . NU (test code = NU) Biotin has been reported to cause a negative bias, interpret results relative to patient's use of biotin. Lab Interpretation Abnormal (test code = 12168-3) [facility] [id number] 12:20:57 Test Item Value Reference Range Interpretation Comments MAGNESIUM (test code = 2005312475) 1.5 mg/dL 1.7-2.4 L Lab Interpretation (test code = Abnormal 20335-5) [facility]. METABOLIC PANEL (83343)2021-04-04 12:20:52 Test Item Value Reference Range Interpretation Comments NA (test code = 139 mmol/L 135-145 7485850652) K (test code = 3.5 mmol/L 3.5-5.0 7684354238) CL (test code = 101 mmol/L 98-108 3482123454) CO2 TOTAL (test code = 33 mmol/L 23-31 H 7906456530) AGAP (test code = 2-16 5544442081) BUN (test code = 23 mg/dL 7-23 9712430579) GLUCOSE (test code = 150 mg/dL 70-110 H 7643442776) CREATININE (test code = 0.89 mg/dL 0.50-1.04 1265610796) TOTAL BILI (test code = 0.8 mg/dL 0.1-1.7 0479209566) CALCIUM (test code = 8.4 mg/dL 8.6-10.6 L 1509434618) T PROTEIN (test code = 6.5 g/dL 6.3-8.2 2102814330) ALBUMIN (test code = 2.9 g/dL 3.5-5.0 L 9719866324) ALK PHOS (test code = 95 U/L 34-122 7882404427) ALTv (test code = 20 U/L 5-35 1742-6) AST(SGOT) (test code = 38 U/L 13-40 1346716635) eGFR (test code = mL/min/1.73m2 4157981518) NU (test code = NU) Association of [...] tests). Lab Interpretation Abnormal (test code = 50201-1) [facility]PH[facility]2021-[facility]-22 12:20:32 Test Item Value Reference Range Interpretation Comments PHOSPHORUS (test code = 3937614107) 4.3 mg/dL 2.5-5.0 Lab Interpretation (test code = Normal 01499-6) [facility]AMMONIA, [id number] 11:44:26 Test Item Value Reference Range Interpretation Comments AMMONIA (test code = 6815722596) 35 umol/L 9-33 H Lab Interpretation (test code = Abnormal 59834-5) [facility] HospitalCB WITH [id number] 11:44:21 Test Item Value Reference Range Interpretation Comments WBC (test code = See_Comment L [Automated 2890-2) message] The system which generated this result transmit thong reference range : 4.30 - 11.10 10*3/?L. The reference range was not used to interpret this result as normal/abnormal . RBC (test code = See_Comment L [Automated 199-8) message] The system which generated this result [...] (test code = 58.4 fL 39.0-49.9 H 60051-0) RDW-CV (test code = 16.7 % 12.0-15.5 H 788-0) PLT (test code = See_Comment LL [Automated 777-3) message] The system which generated this result transmit thong reference range : 166 - 358 10*3/ ?L. The reference range was not u sed to interpret th is result as normal/abnormal . MPV (test code = 9.1 fL 9.5-12.9 L 13676-3) IPF % (test code = 1.6 % 1.3-7.7 Platelet count 6148696760) measured by fluorescence method. NRBC/100 WBC (test See_Comment [Automat ed code = 2960655886) message] The system which generated this result transmit thong reference range : 0.0 - 10.0 /100 WBCs. The reference range was not used to interpret this result as normal/abnormal . NRBC x10^3 (test code See_Comment [Auto mated = 2400535783) message] The system which generated this result transmit thong reference range : 10*3/?L. The reference range was not used to interpret this result as normal/abnormal . GRAN MAT (NEUT) % 52.1 % (test code = 770-8) IMM GRAN % (test code 0.40 % = 5384077706) LYMPH % (test code = 38.8 % 736-9) MONO % (test code = 6.5 % 5905-5) EOS % (test code = 1.3 % 713-8) BASO % (test code = 0.9 % 706-2) GRAN MAT x10^3(ANC) 1.21 10*3/uL 1.88-7.09 L (test code = 1022057582) IMM GRAN x10^3 (test <0.03 0.00-0.06 code = 4072925186) LYMPH x10^3 (test 0.90 10*3/uL 1.32-3.29 L code = 731-0) MONO x10^3 (test code 0.15 10*3/uL 0.33-0.92 L = 742-7) EOS x10^3 (test code 0.03 10*3/uL 0.03-0.39 = 711-2) BASO x10^3 (test code <0.03 0.01-0.07 = 704-7) PLT ESTIMATE (test Critically Normal AA code = 9317-9) Decreased Lab Interpretation Abnormal (test code = 59710-6) [facility] HospitalPROTHROMBIN TIME / [id number] 11:22:04 Test Item Value Reference Range Interpretation [...] tions. Lab Interpretation (test Normal code = 31522-2) [facility] HospitalTROPONIN [id number] 06:51:36 Test Item Value Reference Interpretation Comments Range TROPONIN I (test 0.010 ng/mL See_Comment [Automated code = 4187245558) message] The system which generated this result [...] biotin. Lab Interpretation Normal (test code = 81103-8) [facility]VALPRO[facility] ACID, [id number] 06:44:39 Test Item Value Reference Range Interpretation Comments VALPROIC A (test code = 33 ug/mL 50-100 L 8304313957) NU (test code = NU) Toxic Range: ?Greater than 100 ug/mL Lab Interpretation (test Abnormal code = 27243-4) [facility]AMMONIA, [id number] 05:32:10 Test Item Value Reference Range Interpretation Comments AMMONIA (test code = 0452927164) 49 umol/L 9-33 H Lab Interpretation (test code = Abnormal 23061-5) [facility] HospitalTHYROID STIMULATING [id number] 04:42:00 Test Item Value Reference Range Interpretation Comments TSH (test code = See_Comment [Automated message] 6009303632) The system [employer] generated this result transmitted ref erence range: 0.45 - 4 .70 mIU/L. The refe rence range was not u sed to interpret this result as normal/abnor mal. Lab Interpretation (test Normal code = 70613-8) [facility]2021-04-04 04:14:58 Test Item Value Reference Range Interpretation Comments POCT GLU (test code = 2541261511) 204 mg/dL 70-110 H Lab Interpretation (test code = Abnormal 09267-3) [facility] HospitalLIPID PANEL (73791)(TOTAL CHOLESTEROL, TRIGLYCERIDES, HDL)2021-04-04 04:11:59 Test Item Value Reference Range Interpretation Comments CHOL (test code = 173 mg/dL 120-200 2939103851) HDL (test code = 30 mg/dL >50 L 2866621929) HDLC RATIO (test code = See_Comment H [Au tomated message] 0370578788) The system [employer] generated this result transmit thong reference range : <=4.5. The refe rence range was not u sed to interpret th is result as normal/abnormal . TRIG (test code = 168 mg/dL 30-170 6086176884) LDL CHOL (test code = 109 mg/dL See_Comment [Auto mated message] 44375-4) The system [employer] generated this result transmit thong reference range : <=160. The refe rence range was not u sed to interpret th is result as normal/abnormal . VLDL (test code = 34 mg/dL 5-60 7060314520) Lab Interpretation (test Abnormal code = 57174-8) [facility]MAGN[facility]IUM2021-[facility]-22 04:11:39 Test Item Value Reference Range Interpretation Comments MAGNESIUM (test code = 3256349394) 1.6 mg/dL 1.7-2.4 L Lab Interpretation (test code = Abnormal 82200-7) [facility]PHOSPHORUS2021-[facility]-22 04:11:23 Test Item Value Reference Range Interpretation Comments PHOSPHORUS (test code = 0071971096) 3.9 mg/dL 2.5-5.0 Lab Interpretation (test code = Normal 09859-4) [facility] HospitalURIC [id number] 04:10:57 Test Item Value Reference Range Interpretation Comments URIC ACID (test code = 7629032274) 6.6 mg/dL 2.9-6.0 H Lab Interpretation (test code = Abnormal 37203-6) [facility] HospitalGLYCOSYLATED HEMOGLOBIN (A1C)2021-04-04 04:10:52 Test Item Value Reference Range Interpretation Comments HGB A1C (test code = 7.6 % 4.0-5.7 H 4548-4) NU (test code = NU) Reference RangesNormal: <5.7%Prediabetes: 5.7 - 6.4%Diabetes: > 6.5% Lab Interpretation (test Abnormal code = 40605-6) [facility] HospitalBASIC METABOLIC PANEL (NA, K, CL, CO2, GLUCOSE, BUN, CREATININE, CA)2021-04-04 00:06:53 Test Item Value Reference Range Interpretation Comments NA (test code = 138 mmol/L 135-145 4538480772) K (test code = 4.1 mmol/L 3.5-5.0 1531383088) CL (test code = 99 mmol/L 98-108 6535802037) CO2 TOTAL (test code = 35 mmol/L 23-31 H 1389785231) AGAP (test code = 2-16 5899666772) BUN (test code = 21 mg/dL 7-23 6278999817) GLUCOSE (test code = 253 mg/dL 70-110 H 7525844926) CREATININE (test code = 0.91 mg/dL 0.50-1.04 3154238419) CALCIUM (test code = 8.6 mg/dL 8.6-10.6 2354118317) eGFR (test code = mL/min/1.73m2 4635835024) NU (test code = NU) Association of [...] tests). Lab Interpretation Abnormal (test code = 77973-7) [facility] WITH [id number] 21:16:41 Test Item Value Reference Range Interpretation [...] (test code = 57.5 fL 39.0-49.9 H 92395-7) RDW-CV (test code = 16.8 % 12.0-15.5 H 788-0) PLT (test code = See_Comment LL [Automated 777-3) message] The system which generated this result transmit thong reference range : 166 - 358 10*3/ ?L. The reference range was not u sed to interpret th is result as normal/abnormal . MPV (test code = 10.5 fL 9.5-12.9 03302-9) IPF % (test code = 1.4 % 1.3-7.7 Platelet count 0514859994) measured by fluorescence method. NRBC/100 WBC (test See_Comment [Automat ed code = 1253404742) message] The system which generated this result transmit thong reference range : 0.0 - 10.0 /100 WBCs. The reference range was not used to interpret this result as normal/abnormal . NRBC x10^3 (test code <0.01 See_Comment [Auto mated = 4098941283) message] The system which generated this result transmit thong reference range : 10*3/?L. The reference range was not used to interpret this result as normal/abnormal . GRAN MAT (NEUT) % 69.0 % (test code = 770-8) IMM GRAN % (test code 0.40 % = 4219112636) LYMPH % (test code = 23.9 % 736-9) MONO % (test code = 5.6 % 5905-5) EOS % (test code = 0.7 % 713-8) BASO % (test code = 0.4 % 706-2) GRAN MAT x10^3(ANC) 1.97 10*3/uL 1.88-7.09 (test code = 0698259168) IMM GRAN x10^3 (test <0.03 0.00-0.06 code = 7005868728) LYMPH x10^3 (test 0.68 10*3/uL 1.32-3.29 L code = 731-0) MONO x10^3 (test code 0.16 10*3/uL 0.33-0.92 L = 742-7) EOS x10^3 (test code <0.03 0.03-0.39 L = 711-2) BASO x10^3 (test code <0.03 0.01-0.07 = 704-7) TARGET CELLS (test 2+ See_Comment A [Automat ed code = 68218-2) message] The system which generated this result transmit thong reference range : (none). The reference range was not used to interpret this result as normal/abnormal . PLT ESTIMATE (test Critically Normal AA code = 9317-9) Decreased Lab Interpretation Abnormal (test code = 91353-8) [facility] METABOLIC PANEL (NA, K, CL, CO2, GLUCOSE, BUN, CREATININE, CA)2021-04-03 20:48:54 Test Item Value Reference Range Interpretation Comments NA (test code = 137 mmol/L 135-145 4625813076) K (test code = 4.5 mmol/L 3.5-5.0 0311400155) CL (test code = 101 mmol/L 98-108 0798295649) CO2 TOTAL (test code = 32 mmol/L 23-31 H 7546440615) AGAP (test code = 2-16 0285525218) BUN (test code = 21 mg/dL 7-23 4709696612) GLUCOSE (test code = 321 mg/dL 70-110 H 7575843335) CREATININE (test code = 0.86 mg/dL 0.50-1.04 8306576403) CALCIUM (test code = 8.4 mg/dL 8.6-10.6 L 3847637804) eGFR (test code = mL/min/1.73m2 6083149897) NU (test code = NU) Association of [...] tests). Lab Interpretation Abnormal (test code = 08151-1) [facility] (ALB,T.PRO,BILI T,BU/BC,ALT,AST,ALK PHOS)2021-04-03 20:48:54 Test Item Value Reference Range Interpretation Comments TOTAL BILI (test code = 7687934214) 1.3 mg/dL 0.1-1.1 H BILI UNCON (test code = 4005259613) 0.9 mg/dL 0.1-1.1 BILI CONJ (test code = 9675743672) 0.0 mg/dL 0.0-0.3 T PROTEIN (test code = 7380268437) 7.1 g/dL 6.3-8.2 ALBUMIN (test code = 6071478957) 3.1 g/dL 3.5-5.0 L ALK PHOS (test code = 7537820895) 106 U/L 34-122 ALTv (test code = 1742-6) 22 U/L 5-35 AST(SGOT) (test code = 3989634792) 48 U/L 13-40 H Lab Interpretation (test code = Abnormal 52831-3) [facility] [id number] 20:48:54 Test Item Value Reference Interpretation Comments Range TROPONIN I (test 0.010 ng/mL See_Comment [Automated code = 7521301850) message] The system which generated this result [...] biotin. Lab Interpretation Normal (test code = 62339-4) [facility] [id number] 20:48:54 Test Item Value Reference Range Interpretation Comments NT-proBNP (test code 3360 pg/mL See_Comment H [Autom ated = 9748476420) message] The system which generated this result transmitted reference range : <=125. The reference range was not used to interpret this result as normal/abnormal . NU (test code = NU) Biotin has been reported to cause a negative bias, interpret results relative to patient's use of biotin. Lab Interpretation Abnormal (test code = 44286-8) [facility]AM[facility], [id number] 20:36:31 Test Item Value Reference Range Interpretation Comments AMMONIA (test code = 19 umol/L 9-33 Slight hemolysis 0978116016) Lab Interpretation (test Normal code = 57289-9) [facility] 02:34:00 Test Item Value Reference Range Interpretation Comments APTT Patient (test See_Comment [Automat ed code = 3173-2) message] The system which generated this result transmitted reference range : 23 - 38 Seconds . The reference range was not used to interpr et this result as normal/abnormal . NU (test code = NU) [facility] patient population mean normal value for aPTT is 30 seconds. Lab Interpretation Normal (test code = 91342-4) [facility]21[facility] 02:34:00 Test Item Value Reference Range Interpretation Comments APPEARANCE (test code = Clear Clear 5327901090) COLOR (test code = Yellow Yellow 4257366851) PH (test code = 4.8-8.0 8275892584) SP GRAVITY (test code = 1.003-1.030 2164632342) GLU U QUAL (test code = 150 mg/dL Normal A 8658178356) BLOOD (test code = 2+ Negative A 9189576271) KETONES (test code = Negative Negative 7317271490) PROTEIN (test code = 100 mg/dL Negative A 2887-8) UROBILIN (test code = 2.0 mg/dL Normal A 4209236596) BILIRUBIN (test code = Negative Negative 2806152941) NITRITE (test code = Negative Negative 7536566781) LEUK GUADALUPE (test code = 25/uL Negative A 2036699469) RBC/HPF (test code = See_Comment H [Autom ated message] 5508633793) The system [employer] generated this result transmit thong reference range : 0 - 3 HPF. The refe rence range was not u sed to interpret th is result as normal/abnormal . WBC/HPF (test code = See_Comment [Autom ated message] 3037970472) The system [employer] generated this result transmit thong reference range : 0 - 5 HPF. The refe rence range was not u sed to interpret th is result as normal/abnormal . BACTERIA (test code = Negative Negative 5056666423) MUCOUS (test code = Slight Negative LPF A 2081470403) SQ EPITH (test code = HPF 6352907502) Lab Interpretation (test Abnormal code = 20496-7) [facility] HospitalPROTHROMBIN [facility] / [id number] 02:31:00 Test Item Value Reference Range Interpretation [...] tions. Lab Interpretation (test Normal code = 42814-9) [facility]AM[facility], [id number] 02:22:00 Test Item Value Reference Range Interpretation Comments AMMONIA (test code = 8879230457) 15 umol/L 9-33 Lab Interpretation (test code = Normal 66843-8) [facility] GLUCOSE (AUTOMATED)2020-02-08 07:33:00 Test Item Value Reference Range Interpretation Comments POCT GLU (test code = 9424333763) 434 mg/dL 70-110 H Lab Interpretation (test code = Abnormal 47557-3) [facility] GLUCOSE(AGE 0-30DAYS)2020-02-08 07:28:00 Test Item Value Reference Range Interpretation Comments POCT Glu (age 0-30days) (test code 434 mg/dl 40-110 A = 3343) Lab Interpretation (test code = Abnormal 99099-0) [facility] with [id number] 04:38:00 Test Item Value Reference Range Interpretation Comments WBC (test code = See_Comment [Automated 7490-2) message] The sy stem which generated this result transmitted reference range : 4.30 - 11.10 10*3/?L. The reference range was not used to interpret this result as normal/abnormal . RBC (test code = See_Comment L [Automated 479-8) message] The sy stem which generated this [...] (test code = 52.5 fL 39-49.9 H 26056-2) RDW-CV (test code = 15.2 % 12-15.5 788-0) PLT (test code = See_Comment L [Automated 777-3) message] The sy stem which generated this result transmitted reference range : 166 - 358 10*3/ ?L. The reference r pardeep was not used to interpret this result as normal/abnormal . MPV (test code = 9.5 fL 9.5-12.9 69131-3) IPF % (test code = 2.5 % 1.3-7.7 Platelet count 2639296546) measured by fluorescence method. NRBC/100 WBC (test See_Comment [Automat ed code = 8370334829) message] The system which generated this result transmitted reference range : 0.0 - 10.0 /100 WBCs. The refer ence range was not u sed to interpret th is result as normal/abnormal . NRBC x10^3 (test code <0.01 See_Comment [Auto mated = 1337352411) message] The s ystem which generated this result transmitted reference range : 10*3/?L. The reference range was not used to interpret this result as normal/abnormal . GRAN MAT (NEUT) % 84.8 % (test code = 770-8) IMM GRAN % (test code 0.50 % = 9396100557) LYMPH % (test code = 10.4 % 736-9) MONO % (test code = 4.1 % 5905-5) EOS % (test code = 0.0 % 713-8) BASO % (test code = 0.2 % 706-2) GRAN MAT x10^3(ANC) 4.81 10*3/uL 1.88-7.09 (test code = 8664754604) IMM GRAN x10^3 (test 0.03 10*3/uL 0-0.06 code = 5582669527) LYMPH x10^3 (test code 0.59 10*3/uL 1.32-3.29 L = 731-0) MONO x10^3 (test code 0.23 10*3/uL 0.33-0.92 L = 742-7) EOS x10^3 (test code = <0.03 0.03-0.39 L 711-2) BASO x10^3 (test code <0.03 0.01-0.07 = 704-7) PLT ESTIMATE (test Decreased Normal A code = 9317-9) Lab Interpretation Abnormal (test code = 89166-9) [facility]2020-07[facility]28 04:25:00 Test Item Value Reference Range Interpretation Comments APPEARANCE (test code = Clear Clear 4283721909) COLOR (test code = Yellow Yellow 5270640716) PH (test code = 4.8-8.0 0446915375) SP GRAVITY (test code = 1.003-1.030 5020176252) GLU U QUAL (test code = 500 mg/dL Normal A 6060266937) BLOOD (test code = Negative Negative 7667676854) KETONES (test code = Negative Negative 4869853594) PROTEIN (test code = Negative Negative 2887-8) UROBILIN (test code = Normal Normal 5955228972) BILIRUBIN (test code = Negative Negative 1862114794) NITRITE (test code = Negative Negative 8856319301) LEUK GUADALUPE (test code = Negative Negative 3029738919) RBC/HPF (test code = <1 See_Comment [Autom ated message] 8581885766) The system [employer] generated this result transmit thong reference range : 0 - 3 HPF. The refe rence range was not u sed to interpret th is result as normal/abnormal . WBC/HPF (test code = <1 See_Comment [Autom ated message] 1043180443) The system [employer] generated this result transmit thong reference range : 0 - 5 HPF. The refe rence range was not u sed to interpret th is result as normal/abnormal . BACTERIA (test code = Few Negative A 3679020975) SQ EPITH (test code = HPF 2882553929) Lab Interpretation (test Abnormal code = 07392-7) [facility]. METABOLIC PANEL (42781)2020-02-08 04:18:00 Test Item Value Reference Range Interpretation Comments NA (test code = 129 mmol/L 135-145 L 5714605069) K (test code = 4.8 mmol/L 3.5-5 2037584238) CL (test code = 98 mmol/L 98-108 4311058100) CO2 TOTAL (test code = 22 mmol/L 23-31 L 2884067457) AGAP (test code = 2-16 4812852727) BUN (test code = 38 mg/dL 7-23 H 7479997531) GLUCOSE (test code = 745 mg/dL 70-110 HH 2368269028) CREATININE (test code = 0.96 mg/dL 0.5-1.04 9385316250) TOTAL BILI (test code = 0.7 mg/dL 0.1-1.9 1093196085) CALCIUM (test code = 9.1 mg/dL 8.6-10.6 1696896967) T PROTEIN (test code = 7.8 g/dL 6.3-8.2 1013899951) ALBUMIN (test code = 3.5 g/dL 3.5-5 1460407943) ALK PHOS (test code = 194 U/L 34-122 H 8262617484) ALTv (test code = 31 U/L 5-35 1742-6) AST(SGOT) (test code = 42 U/L 13-40 H 3059876716) eGFR Calculation mL/min/1.73m2 (Non-) (test code = 8176987281) eGFR Calculation mL/min/1.73m2 () (test code = 6539519288) NU (test code = NU) Association of [...] tests). Lab Interpretation Abnormal (test code = 77124-1) [facility] [id number] 04:16:00 Test Item Value Reference Range Interpretation Comments TROPONIN I (test <0.012 See_Comment [Automated code = 3890478125) message] The system which generated this result [...] ? Lab Interpretation Normal (test code = 97437-6) [facility]AL [id number] 04:13:00 Test Item Value Reference Range Interpretation Comments NT-proBNP (test code 317 pg/mL See_Comment H [Autom ated = 2745777939) message] The system which generated this result transmitted reference range : <=125. The reference range was not used to interpret this result as normal/abnormal . NU (test code = NU) Biotin has been reported to cause a negative bias, interpret results relative to patient's use of biotin. Lab Interpretation Abnormal (test code = 34767-1) [facility] 0-30DAYS)2020-02-08 03:21:00 Test Item Value Reference Range Interpretation Comments POCT Glu (age 0-30days) (test code = high 40-110 3343) Lab Interpretation (test code = Normal 20064-8) [facility] HospitalXR CHEST 1 VW [id number] 22:27:15 1. No acute intrathoracic abnormality, specifically no detectableradiographic findings to suggest COVID-19 pneumonia. Disclaimer: Generally, the findings on chest imaging in COVID-19 are notspecific, and overlap with other infections, including influenza, H1N1,SARS and MERS.According to the Centers for Disease Control (CDC) and the [employer], viral testing remains the only [...] Centers for Disease Control (CDC) and the [employer], viral testing remains the only specific method of diagnosiseven if CXR or CT findings are suggestive of COVID-19.[facility] / [facility] - DRUG SCREEN [id number] 22:22:00 Test Item Value Reference Range Interpretation Comments BENZO U (test code = Presumptive Negative A 6037813392) Positive TRACY U (test code = Negative Negative 5315662504) AMPHET (test code = Negative Negative 5459211560) THC (test code = Negative Negative 6098485361) METHADONE (test code Presumptive Negative A = 1652705120) Positive Meth U (test code = Negative Negative 9419886580) OPIATES (test code = Negative Negative 2171153835) Cocaine Metabolite Negative Negative (test code = 4095300024) PROPOXY (test code = Negative Negative 8208227724) Tric U (test code = Presumptive Negative A Confirma tion of 7742334016) Positive Presumptive Positive TCA result requires physician order and this will b e sent to referen ce lab. PCP (test code = Negative Negative 6852077638) OXYCOD (test code = Negative Negative 4553973587) NU (test code = Urine Drug Cutoff [...] testing). Lab Interpretation Abnormal (test code = 06669-9) [facility] HospitalUrinalysis2020-07-19 22:11:00 Test Item Value Reference Range Interpretation Comments APPEARANCE (test code = Clear Clear 1859953916) COLOR (test code = Yellow Yellow 7731580282) PH (test code = 4.8-8.0 3891496459) SP GRAVITY (test code = 1.003-1.030 5516018418) GLU U QUAL (test code = 500 mg/dL Normal A 4348379544) BLOOD (test code = Negative Negative 8286902248) KETONES (test code = Negative Negative 6610799585) PROTEIN (test code = Negative Negative 2887-8) UROBILIN (test code = 4.0 mg/dL Normal A 0243293973) BILIRUBIN (test code = Negative Negative 5010469618) NITRITE (test code = Negative Negative 4666890045) LEUK GUADALUPE (test code = Negative Negative 0325970776) RBC/HPF (test code = See_Comment [Autom ated message] 7787834956) The system [employer] generated this result transmit thong reference range : 0 - 3 HPF. The refe rence range was not u sed to interpret th is result as normal/abnormal . WBC/HPF (test code = <1 See_Comment [Autom ated message] 3795959492) The system [employer] generated this result transmit thong reference range : 0 - 5 HPF. The refe rence range was not u sed to interpret th is result as normal/abnormal . BACTERIA (test code = Few Negative A 6063357730) SQ EPITH (test code = HPF 1308471217) Lab Interpretation (test Abnormal code = 49797-3) [facility] HospitalTroponin [id number] 21:59:00 Test Item Value Reference Range Interpretation Comments TROPONIN I (test <0.012 See_Comment [Automated code = 0174422695) message] The system which generated this result [...] ? Lab Interpretation Normal (test code = 13963-0) [facility]N-[facility]MINAL [id number] 21:56:00 Test Item Value Reference Range Interpretation Comments NT-proBNP (test code 149 pg/mL See_Comment H [Autom ated = 1693275387) message] The system which generated this result transmitted reference range : <=125. The reference range was not used to interpret this result as normal/abnormal . NU (test code = NU) Biotin has been reported to cause a negative bias, interpret results relative to patient's use of biotin. Lab Interpretation Abnormal (test code = 58384-1) [facility] HospitalBasi Metabolic Panel (NA, K, CL, CO2, GLUCOSE, BUN, CREATININE, CA)2020-01-30 21:52:00 Test Item Value Reference Range Interpretation Comments NA (test code = 132 mmol/L 135-145 L 4598318800) K (test code = 5.1 mmol/L 3.5-5 H 2181539019) CL (test code = 99 mmol/L 98-108 7191191474) CO2 TOTAL (test code = 27 mmol/L 23-31 9253995896) AGAP (test code = 2-16 5567687397) BUN (test code = 22 mg/dL 7-23 2207949876) GLUCOSE (test code = 563 mg/dL 70-110 HH 0944879761) CREATININE (test code = 0.75 mg/dL 0.5-1.04 5090833839) CALCIUM (test code = 8.7 mg/dL 8.6-10.6 7850408326) eGFR Calculation mL/min/1.73m2 (Non-) (test code = 7617968304) eGFR Calculation mL/min/1.73m2 () (test code = 8632633009) NU (test code = NU) Association of [...] tests). Lab Interpretation Abnormal (test code = 28487-8) [facility] HospitalHepatic Function Panel (ALB, T.PRO, BILI T, BU/BC, ALT, AST, ALK PHOS)2020-01-30 21:49:00 Test Item Value Reference Range Interpretation Comments TOTAL BILI (test code = 2498453575) 0.9 mg/dL 0.1-1.1 BILI UNCON (test code = 5846948206) 0.8 mg/dL 0.1-1.1 BILI CONJ (test code = 3917290725) 0.0 mg/dL 0-0.3 T PROTEIN (test code = 2113661123) 7.4 g/dL 6.3-8.2 ALBUMIN (test code = 8077119659) 3.3 g/dL 3.5-5 L ALK PHOS (test code = 5014781930) 148 U/L 34-122 H ALTv (test code = 1742-6) 22 U/L 5-35 AST(SGOT) (test code = 3335372704) 42 U/L 13-40 H Lab Interpretation (test code = Abnormal 41675-5) [facility] HospitalLipase [id number] 21:49:00 Test Item Value Reference Range Interpretation Comments LIPASE (test code = 4952237185) 86 U/L 0-220 Lab Interpretation (test code = Normal 02512-7) [facility] HospitalCOVID-19 (ID NOW RAPID TESTING)2020-01-30 21:44:00 Test Item Value Reference Range Interpretation Comments SARS-CoV-2 Rapid ID NOW Positive Not Detected A (test code = 04380-6) NU (test code = NU) ID NOW COVID-19 Assay is an isothermal nucleic acid amplification test intended for the qualitative detection of nucleic acid from SARS-CoV-2 viral RNA in nasopharyngeal (LABORER [employer]) specimens. It is used under Emergency Use [...] indicated. Lab Interpretation Abnormal (test code = 91917-4) [facility] with [id number] 21:40:00 Test Item Value Reference Range Interpretation [...] (test code = 52.6 fL 39-49.9 H 00547-2) RDW-CV (test code = 15.6 % 12-15.5 H 788-0) PLT (test code = See_Comment LL [Automated 777-3) message] The sy stem which generated this result transmitted reference range : 166 - 358 10*3/ ?L. The reference r pardeep was not used to interpret this result as normal/abnormal . MPV (test code = 11.4 fL 9.5-12.9 66744-8) IPF % (test code = 4.6 % 1.3-7.7 Platelet count 2487569028) measured by fluorescence method. NRBC/100 WBC (test See_Comment [Automat ed code = 8487057242) message] The system which generated this result transmitted reference range : 0.0 - 10.0 /100 WBCs. The refer ence range was not u sed to interpret th is result as normal/abnormal . NRBC x10^3 (test code <0.01 See_Comment [Auto mated = 3727097519) message] The s ystem which generated this result transmitted reference range : 10*3/?L. The reference range was not used to interpret this result as normal/abnormal . GRAN MAT (NEUT) % 62.3 % (test code = 770-8) IMM GRAN % (test code 0.30 % = 9540912006) LYMPH % (test code = 30.3 % 736-9) MONO % (test code = 5.8 % 5905-5) EOS % (test code = 0.8 % 713-8) BASO % (test code = 0.5 % 706-2) GRAN MAT x10^3(ANC) 2.47 10*3/uL 1.88-7.09 (test code = 1678871067) IMM GRAN x10^3 (test <0.03 0-0.06 code = 4858441888) LYMPH x10^3 (test code 1.20 10*3/uL 1.32-3.29 L = 731-0) MONO x10^3 (test code 0.23 10*3/uL 0.33-0.92 L = 742-7) EOS x10^3 (test code = 0.03 10*3/uL 0.03-0.39 711-2) BASO x10^3 (test code <0.03 0.01-0.07 = 704-7) Lab Interpretation Abnormal (test code = 23404-4) [facility] CARE VENOUS BLOOD [id number] 20:50:00 Test Item Value Reference Range Interpretation Comments PH (test code = 7.32-7.42 H 8527889170) PCO2 VALERIANO (test code = See_Comment L [Auto mated message] 6299196449) The system [employer] generated this result transmitted ref erence range: 41 - 51 mmHg. The reference r pardeep was not used to interpret this result as normal/abnor mal. PO2 VALERIANO (test code = See_Comment HH [Autom ated message] 3102276853) The system [employer] generated this result transmitted ref erence range: 25 - 40 mmHg. The reference r pardeep was not used to interpret this result as normal/abnor mal. HCO3 VALERIANO (test code = See_Comment [Auto mated message] 4789714709) The system [employer] generated this result transmitted ref erence range: 24 - 28 mEq/L. The reference r pardeep was not used to interpret this result as normal/abnor mal. AC VBE(BEAKER) (test mEq/L code = 7356877416) Lab Interpretation (test Abnormal code = 56755-9) [facility]CT [facility] W [id number] 04:55:51 1. ?Short segments of colonic wall [...] axilla. Skin thickening isnoted over theleft breast. [facility], Radiant Results Inft User - 12/15/2019 11:56 [...] reviewed this study and agree with theabove report.[facility] 2 Views 2019-12-16 02:49:00 No acute cardiopulmonary [...] this study and agree with theabove report. [facility] WITH [id number] 01:39:00 Test Item Value Reference Range Interpretation Comments WBC (test code = See_Comment L [Automated 5290-2) message] The sy stem which generated this [...] (test code = 64.8 fL 39-49.9 H 65317-0) RDW-CV (test code = 19.3 % 12-15.5 H 788-0) PLT (test code = See_Comment L [Automated 777-3) message] The sy stem which generated this result transmitted reference range : 166 - 358 10*3/ ?L. The reference r pardeep was not used to interpret this result as normal/abnormal . MPV (test code = 10.0 fL 9.5-12.9 38444-9) IPF % (test code = 2.2 % 1.3-7.7 Platelet count 6641014696) measured by fluorescence method. NRBC/100 WBC (test See_Comment [Automat ed code = 7673047091) message] The system which generated this result transmitted reference range : 0.0 - 10.0 /100 WBCs. The refer ence range was not u sed to interpret th is result as normal/abnormal . NRBC x10^3 (test code <0.01 See_Comment [Auto mated = 5646405258) message] The s ystem which generated this result transmitted reference range : 10*3/?L. The reference range was not used to interpret this result as normal/abnormal . GRAN MAT (NEUT) % 60.1 % (test code = 770-8) IMM GRAN % (test code 0.50 % = 4178228598) LYMPH % (test code = 29.5 % 736-9) MONO % (test code = 9.2 % 5905-5) EOS % (test code = 0.5 % 713-8) BASO % (test code = 0.2 % 706-2) GRAN MAT x10^3(ANC) 2.43 10*3/uL 1.88-7.09 (test code = 5184633262) IMM GRAN x10^3 (test <0.03 0-0.06 code = 3382611246) LYMPH x10^3 (test code 1.19 10*3/uL 1.32-3.29 L = 731-0) MONO x10^3 (test code 0.37 10*3/uL 0.33-0.92 = 742-7) EOS x10^3 (test code = <0.03 0.03-0.39 L 711-2) BASO x10^3 (test code <0.03 0.01-0.07 = 704-7) POLYCHROMASIA (test 2+ See_Comment [Automa thong code = 39792-3) message] The system which generated this result transmitted reference range : 2+. The referen ce range was not u sed to interpret th is result as normal/abnormal . ROUJOBAUX (test code = Present See_Comment A [Auto mated 7797-4) message] The sy stem which generated this result transmitted reference range : (none). The reference range was not used to interpret this result as normal/abnormal . Lab Interpretation Abnormal (test code = 07656-7) [facility] (NA, K, CL, CO2, GLUCOSE, BUN, CREATININE, CA)2019-12-16 01:20:00 Test Item Value Reference Range Interpretation Comments NA (test code = 133 mmol/L 135-145 L 8296862499) K (test code = 4.4 mmol/L 3.5-5 1081193551) CL (test code = 105 mmol/L 98-108 3633409298) CO2 TOTAL (test code = 28 mmol/L 23-31 2233969995) AGAP (test code = <1 2-16 L 8689150781) BUN (test code = 16 mg/dL 7-23 4218692023) GLUCOSE (test code = 291 mg/dL 70-110 H 2260598194) CREATININE (test code = 0.66 mg/dL 0.5-1.04 6843322209) CALCIUM (test code = 8.4 mg/dL 8.6-10.6 L 6793137822) eGFR Calculation mL/min/1.73m2 (Non-) (test code = 5898030478) eGFR Calculation mL/min/1.73m2 () (test code = 9038468031) NU (test code = NU) Association of [...] tests). Lab Interpretation Abnormal (test code = 52633-1) [facility] [id number] 01:16:00 Test Item Value Reference Range Interpretation Comments TROPONIN I (test <0.012 See_Comment [Automated code = 3603086384) message] The system which generated this result [...] ? Lab Interpretation Normal (test code = 22325-5) [facility]N-[facility]MINAL [id number] 01:13:00 Test Item Value Reference Range Interpretation Comments NT-proBNP (test code 407 pg/mL See_Comment H [Autom ated = 6571307081) message] The system which generated this result transmitted reference range : <=125. The reference range was not used to interpret this result as normal/abnormal . NU (test code = NU) Biotin has been reported to cause a negative bias, interpret results relative to patient's use of biotin. Lab Interpretation Abnormal (test code = 23221-0) [facility]COVID[facility] (ID NOW RAPID TESTING)2019-12-16 01:07:00 Test Item Value Reference Range Interpretation Comments SARS-CoV-2 Rapid ID NOW Not Detected Not Detected (test code = 15827-9) NU (test code = NU) ID NOW COVID-19 Assay is an isothermal nucleic acid amplification test intended for the qualitative detection of nucleic acid from SARS-CoV-2 viral RNA in nasopharyngeal (LABORER CARP[employer] DOCK) specimens. It is used under Emergency Use [...] indicated. Lab Interpretation Normal (test code = 19064-2) [facility] HospitalPROTHROMBIN TIME / [id number] 01:05:00 Test Item Value Reference Range Interpretation Comments PROTIME PATIENT (test See_Comment [Auto mated message] code = 5964-2) The system [employer] generated this result transmitted ref erence range: 12.0 - 1 4.7 Seconds. The re ference range was not u sed to interpret this result as normal/abnor mal. INR (test code = 6301-6) Nor mal INR <1.1; Warfarin Therap eutic range 2.0 to 3. 0 or 2.5 to 3.5, dep ending upon the indica tions. Lab Interpretation (test Normal code = 42267-9) [facility] HospitalHepatic Function Panel (ALB, T.PRO, BILI T, BU/BC, ALT, AST, ALK PHOS)2019-12-16 01:04:00 Test Item Value Reference Range Interpretation Comments TOTAL BILI (test code = 3289735262) 1.6 mg/dL 0.1-1.1 H BILI UNCON (test code = 0886327046) 1.2 mg/dL 0.1-1.1 H BILI CONJ (test code = 0983891586) 0.0 mg/dL 0-0.3 T PROTEIN (test code = 0507320580) 6.5 g/dL 6.3-8.2 ALBUMIN (test code = 3105868887) 2.9 g/dL 3.5-5 L ALK PHOS (test code = 0041302295) 175 U/L 34-122 H ALTv (test code = 1742-6) 26 U/L 5-35 AST(SGOT) (test code = 3196987996) 49 U/L 13-40 H Lab Interpretation (test code = Abnormal 73837-8) [facility] HospitalLipase [id number] 01:04:00 Test Item Value Reference Range Interpretation Comments LIPASE (test code = 2764614917) 76 U/L 0-220 Lab Interpretation (test code = Normal 55025-4) [facility] HospitalUrinalysis2020-06-04 00:58:00 Test Item Value Reference Range Interpretation Comments APPEARANCE (test code = Hazy Clear A 2932575843) COLOR (test code = Yellow Yellow 1641482080) PH (test code = 4.8-8.0 9353900574) SP GRAVITY (test code = 1.003-1.030 9751738029) GLU U QUAL (test code = 500 mg/dL Normal A 7279660284) BLOOD (test code = Negative Negative 8577693322) KETONES (test code = Negative Negative 1584752337) PROTEIN (test code = 30 mg/dL Negative A 2887-8) UROBILIN (test code = 2.0 mg/dL Normal A 0318742730) BILIRUBIN (test code = Negative Negative 1263112383) NITRITE (test code = Negative Negative 9729326371) LEUK GUADALUPE (test code = Negative Negative 8377928362) RBC/HPF (test code = See_Comment [Autom ated message] 2459673791) The system [employer] generated this result transmit thong reference range : 0 - 3 HPF. The refe rence range was not u sed to interpret th is result as normal/abnormal . WBC/HPF (test code = See_Comment [Autom ated message] 7760065167) The system [employer] generated this result transmit thogn reference range : 0 - 5 HPF. The refe rence range was not u sed to interpret th is result as normal/abnormal . BACTERIA (test code = Negative Negative 6538241238) MUCOUS (test code = Slight Negative LPF A 9535588862) SQ EPITH (test code = HPF 1220786491) HYAL CAST (test code = See_Comment [Aut omated message] 9010631355) The system [employer] generated this result transmit thong reference range : <=2 LPF. The refere nce range was not u sed to interpret th is result as normal/abnormal . Lab Interpretation (test Abnormal code = 48849-2) [facility] HospitalPOCT Test, [id number] 00:26:00 Test Item Value Reference Range Interpretation Comments POCT PREG (test code = 1605) negative On board controls acceptable with present C Line (test code = 3574) POCT PREG LOT # (test code = 3575) [id number] POCT PREG TEST DATE (test 02-10-2021 code = 3576) Lab Interpretation (test code = Normal 16982-6) [facility] HospitalCT ABDOMEN PELVIS W [id number] 19:20:42CT Abdomen and Pelvis with intravenous contrast. [...] 11/09/2019 and 11/11/2019.5. S/P cholecystectomy and hysterectomy. [facility] In[facility] User - 11/30/2019 2:21 PM [...] of 11/09/2019 and 11/11/2019.5. S/P cholecystectomy and hysterectomy.[facility] HospitalComplete Metabolic [id number] 19:15:00 Test Item Value Reference Range Interpretation Comments NA (test code = 132 mmol/L 135-145 L 2630641281) K (test code = 5.4 mmol/L 3.5-5 H 3362612487) CL (test code = 99 mmol/L 98-108 5270000730) CO2 TOTAL (test code = 25 mmol/L 23-31 1215838412) AGAP (test code = 2-16 3495421692) BUN (test code = 15 mg/dL 7-23 9200337830) GLUCOSE (test code = 502 mg/dL 70-110 HH 4242010874) CREATININE (test code = 0.71 mg/dL 0.5-1.04 8730670986) TOTAL BILI (test code = 1.4 mg/dL 0.1-1.1 H 6121166996) CALCIUM (test code = 9.2 mg/dL 8.6-10.6 0980699195) T PROTEIN (test code = 7.4 g/dL 6.3-8.2 9802558999) ALBUMIN (test code = 3.5 g/dL 3.5-5 6134640235) ALK PHOS (test code = 185 U/L 34-122 H 0132492687) ALTv (test code = 31 U/L 5-35 1742-6) AST(SGOT) (test code = 42 U/L 13-40 H 4494096036) eGFR Calculation mL/min/1.73m2 (Non-) (test code = 2781781160) eGFR Calculation mL/min/1.73m2 () (test code = 5434847996) NU (test code = NU) Association of [...] tests). Lab Interpretation Abnormal (test code = 48257-9) [facility] WITH [id number] 19:05:00 Test Item Value Reference Range Interpretation [...] (test code = 58.3 fL 39-49.9 H 48177-9) RDW-CV (test code = 17.5 % 12-15.5 H 788-0) PLT (test code = See_Comment L [Automated 777-3) message] The sy stem which generated this result transmitted reference range : 166 - 358 10*3/ ?L. The reference r pardeep was not used to interpret this result as normal/abnormal . MPV (test code = 10.0 fL 9.5-12.9 57749-3) IPF % (test code = 3.1 % 1.3-7.7 Platelet count 1684289875) measured by fluorescence method. NRBC/100 WBC (test See_Comment [Automat ed code = 2926109906) message] The system which generated this result transmitted reference range : 0.0 - 10.0 /100 WBCs. The refer ence range was not u sed to interpret th is result as normal/abnormal . NRBC x10^3 (test code <0.01 See_Comment [Auto mated = 5532219941) message] The s ystem which generated this result transmitted reference range : 10*3/?L. The reference range was not used to interpret this result as normal/abnormal . GRAN MAT (NEUT) % 72.1 % (test code = 770-8) IMM GRAN % (test code 0.50 % = 8934198694) LYMPH % (test code = 16.7 % 736-9) MONO % (test code = 9.4 % 5905-5) EOS % (test code = 0.8 % 713-8) BASO % (test code = 0.5 % 706-2) GRAN MAT x10^3(ANC) 4.43 10*3/uL 1.88-7.09 (test code = 7829334110) IMM GRAN x10^3 (test 0.03 10*3/uL 0-0.06 code = 9115289606) LYMPH x10^3 (test code 1.03 10*3/uL 1.32-3.29 L = 731-0) MONO x10^3 (test code 0.58 10*3/uL 0.33-0.92 = 742-7) EOS x10^3 (test code = 0.05 10*3/uL 0.03-0.39 711-2) BASO x10^3 (test code 0.03 10*3/uL 0.01-0.07 = 704-7) Lab Interpretation Abnormal (test code = 25732-7) [facility] HospitalLipase, [id number] 19:02:00 Test Item Value Reference Range Interpretation Comments LIPASE (test code = 6042749370) 69 U/L 0-220 Lab Interpretation (test code = Normal 76918-6) [facility] HospitalUrinalysis2020-05-19 18:38:00 Test Item Value Reference Range Interpretation Comments APPEARANCE (test code = Clear Clear 0033849979) COLOR (test code = Yellow Yellow 9480689336) PH (test code = 4.8-8.0 7149638499) SP GRAVITY (test code = 1.003-1.030 4928941349) GLU U QUAL (test code = 500 mg/dL Normal A 9090239943) BLOOD (test code = Negative Negative 5758812007) KETONES (test code = Negative Negative 6130989034) PROTEIN (test code = Negative Negative 2887-8) UROBILIN (test code = Normal Normal 3031291196) BILIRUBIN (test code = Negative Negative 1624218630) NITRITE (test code = Negative Negative 2307197733) LEUK GUADALUPE (test code = Negative Negative 3277881662) RBC/HPF (test code = See_Comment [Autom ated message] 5576999355) The system [employer] generated this result transmit thong reference range : 0 - 3 HPF. The refe rence range was not u sed to interpret th is result as normal/abnormal . WBC/HPF (test code = <1 See_Comment [Autom ated message] 1736486853) The system [employer] generated this result transmit thong reference range : 0 - 5 HPF. The refe rence range was not u sed to interpret th is result as normal/abnormal . BACTERIA (test code = Negative Negative 0337657939) SQ EPITH (test code = HPF 1143806630) Lab Interpretation (test Abnormal code = 13137-0) [facility] GLUCOSE (AUTOMATED)2019-11-16 11:03:00 Test Item Value Reference Range Interpretation Comments POCT GLU (test code = 4249033630) 272 mg/dL 70-110 H Lab Interpretation (test code = Abnormal 16354-5) [facility] HospitalPROLACTIN2020-05-05 03:20:00 Test Item Value Reference Range Interpretation Comments PROLACTIN (test code = 8588824251) 8.1 ng/mL 2.7-19.6 Lab Interpretation (test code = Normal 44288-7) [facility] GLUCOSE (AUTOMATED)2019-11-16 03:13:00 Test Item Value Reference Range Interpretation Comments POCT GLU (test code = 4965356533) 295 mg/dL 70-110 H Lab Interpretation (test code = Abnormal 47904-0) [facility] HospitalTROPONIN [id number] 02:15:00 Test Item Value Reference Range Interpretation Comments TROPONIN I (test 0.003 ng/mL See_Comment [Automated code = 0488402424) message] The system which generated this result [...] ? Lab Interpretation Normal (test code = 76114-4) [facility] (NA, K, CL, CO2, GLUCOSE, BUN, CREATININE, CA)2019-11-16 02:07:00 Test Item Value Reference Range Interpretation Comments NA (test code = 137 mmol/L 135-145 0382467031) K (test code = 3.6 mmol/L 3.5-5 1141473937) CL (test code = 104 mmol/L 98-108 4267833978) CO2 TOTAL (test code = 24 mmol/L 23-31 5114783714) AGAP (test code = 2-16 9831341425) BUN (test code = 11 mg/dL 7-23 0546675872) GLUCOSE (test code = 321 mg/dL 70-110 H 5192190867) CREATININE (test code = 0.65 mg/dL 0.5-1.04 2981184370) CALCIUM (test code = 8.2 mg/dL 8.6-10.6 L 9755078735) eGFR Calculation mL/min/1.73m2 (Non-) (test code = 2407257383) eGFR Calculation mL/min/1.73m2 () (test code = 9227487504) NU (test code = NU) Association of [...] tests). Lab Interpretation Abnormal (test code = 27637-7) [facility] HospitalMAGNESIUM2020-05-05 02:07:00 Test Item Value Reference Range Interpretation Comments MAGNESIUM (test code = 2699396702) 1.8 mg/dL 1.7-2.4 Lab Interpretation (test code = Normal 25051-2) [facility] HospitalCREATINE [id number] 02:07:00 Test Item Value Reference Range Interpretation Comments CK (test code = 3499021464) 35 U/L 33-194 Lab Interpretation (test code = Normal 09041-6) [facility] GLUCOSE (AUTOMATED)2019-11-15 18:51:00 Test Item Value Reference Range Interpretation Comments POCT GLU (test code = 8079653373) 310 mg/dL 70-110 H Lab Interpretation (test code = Abnormal 55358-7) [facility] HospitalXR [id number] 17:26:50EXAM: XR KUB HISTORY: serial progression r/o [...] and no opaque stones or masses are found.[facility] GLUCOSE (AUTOMATED)2019-11-15 13:04:00 Test Item Value Reference Range Interpretation Comments POCT GLU (test code = 6134842951) 270 mg/dL 70-110 H Lab Interpretation (test code = Abnormal 96833-8) [facility] HospitalCBC WITH [id number] 11:01:00 Test Item Value Reference Range Interpretation Comments WBC (test code = See_Comment [Automated 2090-2) message] The sy stem which generated this result transmitted reference range : 4.30 - 11.10 10*3/?L. The reference range was not used to interpret this result as normal/abnormal . RBC (test code = See_Comment L [Automated 519-8) message] The sy stem which generated this [...] (test code = 54.9 fL 39-49.9 H 78688-3) RDW-CV (test code = 17.2 % 12-15.5 H 788-0) PLT (test code = See_Comment LL [Automated 777-3) message] The sy stem which generated this result transmitted reference range : 166 - 358 10*3/ ?L. The reference r pardeep was not used to interpret this result as normal/abnormal . MPV (test code = 9.9 fL 9.5-12.9 43654-2) IPF % (test code = 4.4 % 1.3-7.7 Platelet count 1304990677) measured by fluorescence method. NRBC/100 WBC (test See_Comment [Automat ed code = 1857855038) message] The system which generated this result transmitted reference range : 0.0 - 10.0 /100 WBCs. The refer ence range was not u sed to interpret th is result as normal/abnormal . NRBC x10^3 (test code <0.01 See_Comment [Auto mated = 6711908858) message] The s ystem which generated this result transmitted reference range : 10*3/?L. The reference range was not used to interpret this result as normal/abnormal . GRAN MAT (NEUT) % 75.2 % (test code = 770-8) IMM GRAN % (test code 1.40 % = 8251458894) LYMPH % (test code = 15.7 % 736-9) MONO % (test code = 6.8 % 5905-5) EOS % (test code = 0.7 % 713-8) BASO % (test code = 0.2 % 706-2) GRAN MAT x10^3(ANC) 4.23 10*3/uL 1.88-7.09 (test code = 2457980814) IMM GRAN x10^3 (test 0.08 10*3/uL 0-0.06 H code = 8850006402) LYMPH x10^3 (test code 0.88 10*3/uL 1.32-3.29 L = 731-0) MONO x10^3 (test code 0.38 10*3/uL 0.33-0.92 = 742-7) EOS x10^3 (test code = 0.04 10*3/uL 0.03-0.39 711-2) BASO x10^3 (test code <0.03 0.01-0.07 = 704-7) Lab Interpretation Abnormal (test code = 59394-2) [facility] Metabolic Panel (NA, K, CL, CO2, Glucose, BUN, Creatinine, CA)2019-11-15 10:45:00 Test Item Value Reference Range Interpretation Comments NA (test code = 137 mmol/L 135-145 5924307071) K (test code = 3.7 mmol/L 3.5-5 Slight 1043564963) hemolysis CL (test code = 105 mmol/L 98-108 9489029572) CO2 TOTAL (test code 25 mmol/L 23-31 = 5062095513) AGAP (test code = 2-16 3768724605) BUN (test code = 10 mg/dL 7-23 Slight 8816681153) hemolysis GLUCOSE (test code = 307 mg/dL 70-110 H 0254215743) CREATININE (test code 0.56 mg/dL 0.5-1.04 = 1384723481) CALCIUM (test code = 7.4 mg/dL 8.6-10.6 L 3126100159) eGFR Calculation mL/min/1.73m2 (Non-) (test code = 3101097345) eGFR Calculation mL/min/1.73m2 () (test code = 2059963318) NU (test code = NU) Association of [...] tests). Lab Interpretation Abnormal (test code = 24941-5) [facility]PO[facility])2019-11-15 03:01:00 Test Item Value Reference Range Interpretation Comments POCT GLU (test code = 5738100456) 285 mg/dL 70-110 H Lab Interpretation (test code = Abnormal 19265-7) [facility] HospitalBLOOD CULTURE [id number] 00:01:00 Test Item Value Reference Range Interpretation Comments Blood Culture-Aerobic No organisms No growth Previo us (test code = 46157-4) isolated prelim inary verified result was Culture [...] Culture-Anaerobic isolated preliminar y (test code = 71488-1) verifi ed result was Culture In Progress [...] CDT Lab Interpretation Normal (test code = 28850-9) [facility] HospitalBLOOD [facility]URE [id number] 00:01:00 Test Item Value Reference Range Interpretation Comments Blood Culture-Aerobic No organisms No growth Previo us (test code = 47439-3) isolated prelim inary verified result was Culture [...] Culture-Anaerobic isolated preliminar y (test code = 98600-6) verifi ed result was Culture In Progress [...] CDT Lab Interpretation Normal (test code = 27079-4) [facility]PO[facility])2019-11-14 21:19:00 Test Item Value Reference Range Interpretation Comments POCT GLU (test code = 4806119968) 337 mg/dL 70-110 H Lab Interpretation (test code = Abnormal 95079-0) [facility] HospitalXR [id number] 17:43:38 No radiographic findings to suggest with [...] grosslyunremarkable.IMPRESSIONNo radiographic findings to suggest with toxic megacolon.[facility] HospitalPOFL GLUCOSE (AUTOMATED)2019-11-14 16:45:00 Test Item Value Reference Range Interpretation Comments POCT GLU (test code = 319 mg/dL 70-110 H Notifi ed Provider 1888822466) Lab Interpretation (test Abnormal code = 79424-7) [facility] WITH [id number] 11:35:00 Test Item Value Reference Range Interpretation [...] (test code = 53.9 fL 39-49.9 H 64565-6) RDW-CV (test code = 17.2 % 12-15.5 H 788-0) PLT (test code = See_Comment LL [Automated 777-3) message] The sy stem which generated this result transmitted reference range : 166 - 358 10*3/ ?L. The reference r pardeep was not used to interpret this result as normal/abnormal . MPV (test code = 10.0 fL 9.5-12.9 61433-8) IPF % (test code = 3.2 % 1.3-7.7 Platelet count 3616725223) measured by fluorescence method. NRBC/100 WBC (test See_Comment [Automat ed code = 5705704207) message] The system which generated this result transmitted reference range : 0.0 - 10.0 /100 WBCs. The refer ence range was not u sed to interpret th is result as normal/abnormal . NRBC x10^3 (test code <0.01 See_Comment [Auto mated = 5598450916) message] The s ystem which generated this result transmitted reference range : 10*3/?L. The reference range was not used to interpret this result as normal/abnormal . GRAN MAT (NEUT) % 73.9 % (test code = 770-8) IMM GRAN % (test code 1.60 % = 7399463898) LYMPH % (test code = 16.1 % 736-9) MONO % (test code = 6.6 % 5905-5) EOS % (test code = 1.4 % 713-8) BASO % (test code = 0.4 % 706-2) GRAN MAT x10^3(ANC) 4.14 10*3/uL 1.88-7.09 (test code = 0998424451) IMM GRAN x10^3 (test 0.09 10*3/uL 0-0.06 H code = 5674345296) LYMPH x10^3 (test code 0.90 10*3/uL 1.32-3.29 L = 731-0) MONO x10^3 (test code 0.37 10*3/uL 0.33-0.92 = 742-7) EOS x10^3 (test code = 0.08 10*3/uL 0.03-0.39 711-2) BASO x10^3 (test code <0.03 0.01-0.07 = 704-7) BANDS (test code = Increased A 9190375382) Lab Interpretation Abnormal (test code = 58325-4) [facility] Metabolic Panel (NA, K, CL, CO2, Glucose, BUN, Creatinine, CA)2019-11-14 11:07:00 Test Item Value Reference Range Interpretation Comments NA (test code = 136 mmol/L 135-145 2636161183) K (test code = 3.3 mmol/L 3.5-5 L Slight 5251752090) hemolysis CL (test code = 105 mmol/L 98-108 3377492367) CO2 TOTAL (test code 25 mmol/L 23-31 = 5662101534) AGAP (test code = 2-16 6519086428) BUN (test code = 12 mg/dL 7-23 Slight 5396221016) hemolysis GLUCOSE (test code = 275 mg/dL 70-110 H 5856181179) CREATININE (test code 0.60 mg/dL 0.5-1.04 = 2959001012) CALCIUM (test code = 7.4 mg/dL 8.6-10.6 L 0894776617) eGFR Calculation mL/min/1.73m2 (Non-) (test code = 2947656173) eGFR Calculation mL/min/1.73m2 () (test code = 3280112508) NU (test code = NU) Association of [...] tests). Lab Interpretation Abnormal (test code = 21840-3) [facility] HospitalMagnesium [id number] 11:07:00 Test Item Value Reference Range Interpretation Comments MAGNESIUM (test code = 8249681811) 1.5 mg/dL 1.7-2.4 L Lab Interpretation (test code = Abnormal 42530-0) [facility] HospitalHepatic Function Panel (ALB, T.PRO, BILI T, BU/BC, ALT, AST, ALK, PHOS)2019-11-14 11:07:00 Test Item Value Reference Range Interpretation Comments TOTAL BILI (test code = 8986884250) 1.2 mg/dL 0.1-1.1 H BILI UNCON (test code = 8534876421) 0.7 mg/dL 0.1-1.1 BILI CONJ (test code = 6887787568) 0.0 mg/dL 0-0.3 T PROTEIN (test code = 7917679257) 6.1 g/dL 6.3-8.2 L ALBUMIN (test code = 0857394292) 2.7 g/dL 3.5-5 L ALK PHOS (test code = 5312814958) 92 U/L 34-122 ALTv (test code = 1742-6) 20 U/L 5-35 AST(SGOT) (test code = 2996213162) 37 U/L 13-40 Lab Interpretation (test code = Abnormal 15077-7) [facility] HospitalProthrombin Time / [id number] 10:59:00 Test Item Value Reference Range Interpretation [...] tions. Lab Interpretation (test Abnormal code = 43979-1) [facility] HospitalFERRITIN [id number] 03:41:00 Test Item Value Reference Range Interpretation Comments FERRITIN (test code = 382.0 ng/mL 11-264 H 9376648344) NU (test code = NU) Biotin has been reported to cause a negative bias, interpret results relative to patient's use of biotin. Lab Interpretation (test Abnormal code = 49402-4) [facility]PO[facility]AUT[facility])2019-11-14 03:06:00 Test Item Value Reference Range Interpretation Comments POCT GLU (test code = 1116443910) 274 mg/dL 70-110 H Lab Interpretation (test code = Abnormal 86438-0) [facility] HospitalIRON [id number] 02:56:00 Test Item Value Reference Range Interpretation Comments IRON (test code = 2615795255) 171 ug/dL 50-160 H TIBC (test code = 6337547558) 319 ug/dL 250-410 % FE SAT (test code = 8771879345) 54 % 20-50 H Lab Interpretation (test code = Abnormal 24988-5) [facility] HospitalCBC WITH [id number] 23:39:00 Test Item Value Reference Range Interpretation Comments WBC (test code = See_Comment [Automated 1072-2) message] The sy stem which generated this result transmitted reference range : 4.30 - 11.10 10*3/?L. The reference range was not used to interpret this result as normal/abnormal . RBC (test code = See_Comment L [Automated 453-8) message] The sy stem which generated this [...] (test code = 55.3 fL 39-49.9 H 91259-0) RDW-CV (test code = 17.3 % 12-15.5 H 788-0) PLT (test code = See_Comment L [Automated 777-3) message] The sy stem which generated this result transmitted reference range : 166 - 358 10*3/ ?L. The reference r pardeep was not used to interpret this result as normal/abnormal . MPV (test code = 10.2 fL 9.5-12.9 22891-1) IPF % (test code = 2.0 % 1.3-7.7 Platelet count 3553040489) measured by fluorescence method. NRBC/100 WBC (test See_Comment [Automat ed code = 6974862358) message] The system which generated this result transmitted reference range : 0.0 - 10.0 /100 WBCs. The refer ence range was not u sed to interpret th is result as normal/abnormal . NRBC x10^3 (test code <0.01 See_Comment [Auto mated = 1643850223) message] The s ystem which generated this result transmitted reference range : 10*3/?L. The reference range was not used to interpret this result as normal/abnormal . GRAN MAT (NEUT) % 78.7 % (test code = 770-8) IMM GRAN % (test code 1.30 % = 3147274077) LYMPH % (test code = 12.3 % 736-9) MONO % (test code = 6.4 % 5905-5) EOS % (test code = 1.2 % 713-8) BASO % (test code = 0.1 % 706-2) GRAN MAT x10^3(ANC) 6.48 10*3/uL 1.88-7.09 (test code = 7733958773) IMM GRAN x10^3 (test 0.11 10*3/uL 0-0.06 H code = 8803924049) LYMPH x10^3 (test code 1.01 10*3/uL 1.32-3.29 L = 731-0) MONO x10^3 (test code 0.53 10*3/uL 0.33-0.92 = 742-7) EOS x10^3 (test code = 0.10 10*3/uL 0.03-0.39 711-2) BASO x10^3 (test code <0.03 0.01-0.07 = 704-7) Lab Interpretation Abnormal (test code = 02240-3) [facility] GLUCOSE (AUTOMATED)2019-11-13 22:58:00 Test Item Value Reference Range Interpretation Comments POCT GLU (test code = 4749523469) 181 mg/dL 70-110 H Lab Interpretation (test code = Abnormal 40723-9) [facility]XR [id number] 19:22:12 Nonspecific, mild gaseous distention of large [...] bowel with noevidence of mechanical obstruction.Right-sided pleural effusion.[facility] GLUCOSE (AUTOMATED)2019-11-13 17:04:00 Test Item Value Reference Range Interpretation Comments POCT GLU (test code = 4058633693) 181 mg/dL 70-110 H Lab Interpretation (test code = Abnormal 57786-9) [facility] [id number] 15:26:00 Test Item Value Reference Range Interpretation Comments WBC (test code = See_Comment [Automated message] 6690-2) The system [employer] generated this result transmitted ref erence range: 4.30 - 1 1.10 10*3/?L. The reference range was not used to int erpret this result as normal/abnormal . RBC (test code = 789-8) See_Comment L [Au tomated message] The system [employer] generated this result transmitted ref erence range: [...] See_Comment LL [Au tomated message] The system [employer] generated this result transmitted ref erence range: 166 - 35 8 10*3/?L. The reference range was not used to int erpret this result as normal/abnormal . MPV (test code = 9.0 fL 9.5-12.9 L 79132-9) RDW-CV (test code = 17.5 % 12-15.5 H 788-0) RDW-SD (test code = 55.7 fL 39-49.9 H 76642-5) NRBC x10^3 (test code = See_Comment [Au tomated message] 2864895239) The system [employer] generated this result transmitted ref erence range: 10*3/?L. The reference range was not used to int erpret this result as normal/abnormal . NRBC/100 WBC (test code See_Comment [Au tomated message] = 8848498707) The system [employer] generated this result transmitted ref erence range: 0.0 - 10 .0 /100 WBCs. The reference range was not used to int erpret this result as normal/abnormal . IPF % (test code = 3.2 % 1.3-7.7 Platelet count [id number]) measured by fluorescence me thod. Lab Interpretation Abnormal (test code = 12690-1) [facility] 12:57:00 Test Item Value Reference Range Interpretation Comments POCT GLU (test code = 4168357407) 151 mg/dL 70-110 H Lab Interpretation (test code = Abnormal 71521-3) [facility] [id number] 10:23:00 Test Item Value Reference Range Interpretation Comments WBC (test code = See_Comment [Automated message] 6690-2) The system [employer] generated this result transmitted ref erence range: 4.30 - 1 1.10 10*3/?L. The reference range was not used to int erpret this result as normal/abnormal . RBC (test code = 789-8) See_Comment L [Au tomated message] The system [employer] generated this result transmitted ref erence range: [...] See_Comment LL [Au tomated message] The system [employer] generated this result transmitted ref erence range: 166 - 35 8 10*3/?L. The reference range was not used to int erpret this result as normal/abnormal . MPV (test code = 8.4 fL 9.5-12.9 L 58531-8) RDW-CV (test code = 17.5 % 12-15.5 H 788-0) RDW-SD (test code = 56.2 fL 39-49.9 H 40720-3) NRBC x10^3 (test code = See_Comment [Au tomated message] 6910886787) The system [employer] generated this result transmitted ref erence range: 10*3/?L. The reference range was not used to int erpret this result as normal/abnormal . NRBC/100 WBC (test code See_Comment [Au tomated message] = 8058953034) The system [employer] generated this result transmitted ref erence range: 0.0 - 10 .0 /100 WBCs. The reference range was not used to int erpret this result as normal/abnormal . IPF % (test code = 2.0 % 1.3-7.7 Platelet count 4756955243) measured by fluorescence me thod. Lab Interpretation Abnormal (test code = 89374-7) [facility] (NA, K, CL, CO2, Glucose, BUN, Creatinine, CA)2019-11-13 10:09:00 Test Item Value Reference Range Interpretation Comments NA (test code = 136 mmol/L 135-145 2529029841) K (test code = 3.7 mmol/L 3.5-5 5957953696) CL (test code = 109 mmol/L 98-108 H 8921954399) CO2 TOTAL (test code = 21 mmol/L 23-31 L 9488348864) AGAP (test code = 2-16 8711977830) BUN (test code = 16 mg/dL 7-23 6783741923) GLUCOSE (test code = 151 mg/dL 70-110 H 5960128159) CREATININE (test code = 0.59 mg/dL 0.5-1.04 9396088221) CALCIUM (test code = 7.1 mg/dL 8.6-10.6 L 9553618998) eGFR Calculation mL/min/1.73m2 (Non-) (test code = 7343385509) eGFR Calculation mL/min/1.73m2 () (test code = 4317949517) NU (test code = NU) Association of [...] tests). Lab Interpretation Abnormal (test code = 00403-1) [facility] HospitalMagnesium [id number] 10:09:00 Test Item Value Reference Range Interpretation Comments MAGNESIUM (test code = 4851550905) 2.3 mg/dL 1.7-2.4 Lab Interpretation (test code = Normal 48922-9) [facility] HospitalHep[facility] Function Panel (ALB, T.PRO, BILI T, BU/BC, ALT, AST, ALK, PHOS)2019-11-13 10:09:00 Test Item Value Reference Range Interpretation Comments TOTAL BILI (test code = 3107924167) 1.7 mg/dL 0.1-1.1 H BILI UNCON (test code = 4673152328) 1.3 mg/dL 0.1-1.1 H BILI CONJ (test code = 6654654772) 0.0 mg/dL 0-0.3 T PROTEIN (test code = 2878764932) 5.7 g/dL 6.3-8.2 L ALBUMIN (test code = 0506843271) 2.5 g/dL 3.5-5 L ALK PHOS (test code = 6215060568) 77 U/L 34-122 ALTv (test code = 1742-6) 20 U/L 5-35 AST(SGOT) (test code = 9780405287) 33 U/L 13-40 Lab Interpretation (test code = Abnormal 73568-1) [facility] HospitalProthrombin Time / [id number] 09:53:00 Test Item Value Reference Range Interpretation Comments PROTIME PATIENT (test See_Comment H [Auto mated message] code = 5964-2) The system [employer] generated this result transmitted ref erence range: 10.1 - 1 2.6 Seconds. The reference range was not used to int erpret this result as normal/abnormal . INR (test code = 6301-6) Nor mal INR <1.1; Warfarin Therap eutic range 2.0 to 3. 0 or 2.5 to 3.5, dep ending upon the indica tions. Lab Interpretation (test Abnormal code = 10843-0) [facility]2019-11-13 04:43:00 Test Item Value Reference Range Interpretation Comments POCT GLU (test code = 1391248618) 164 mg/dL 70-110 H Lab Interpretation (test code = Abnormal 98698-7) [facility] / [id number] 03:24:00 Test Item Value Reference Range Interpretation Comments WBC (test code = See_Comment [Automated message] 6690-2) The system [employer] generated this result transmitted ref erence range: 4.30 - 1 1.10 10*3/?L. The reference range was not used to int erpret this result as normal/abnormal . RBC (test code = 789-8) See_Comment L [Au tomated message] The system [employer] generated this result transmitted ref erence range: [...] See_Comment LL [Au tomated message] The system [employer] generated this result transmitted ref erence range: 166 - 35 8 10*3/?L. The reference range was not used to int erpret this result as normal/abnormal . MPV (test code = 9.1 fL 9.5-12.9 L 66351-7) RDW-CV (test code = 17.6 % 12-15.5 H 788-0) RDW-SD (test code = 56.1 fL 39-49.9 H 39035-4) NRBC x10^3 (test code = See_Comment [Au tomated message] 6582372497) The system [employer] generated this result transmitted ref erence range: 10*3/?L. The reference range was not used to int erpret this result as normal/abnormal . NRBC/100 WBC (test code See_Comment [Au tomated message] = 8956712146) The system [employer] generated this result transmitted ref erence range: 0.0 - 10 .0 /100 WBCs. The reference range was not used to int erpret this result as normal/abnormal . IPF % (test code = 1.9 % 1.3-7.7 Platelet count 4299681588) measured by fluorescence me thod. Lab Interpretation Abnormal (test code = 86177-9) [facility]2019-11-13 00:53:00 Test Item Value Reference Range Interpretation Comments POCT GLU (test code = 0645535857) 201 mg/dL 70-110 H Lab Interpretation (test code = Abnormal 98723-2) [facility] METABOLIC PANEL (NA, K, CL, CO2, GLUCOSE, BUN, CREATININE, CA)2019-11-12 22:06:00 Test Item Value Reference Range Interpretation Comments NA (test code = 136 mmol/L 135-145 1770686508) K (test code = 4.1 mmol/L 3.5-5 6827025227) CL (test code = 107 mmol/L 98-108 5089797122) CO2 TOTAL (test code = 24 mmol/L 23-31 9127214494) AGAP (test code = 2-16 9380124679) BUN (test code = 18 mg/dL 7-23 8762105696) GLUCOSE (test code = 133 mg/dL 70-110 H 0445460512) CREATININE (test code = 0.60 mg/dL 0.5-1.04 7811407604) CALCIUM (test code = 7.4 mg/dL 8.6-10.6 L 2224450733) eGFR Calculation mL/min/1.73m2 (Non-) (test code = 4097672058) eGFR Calculation mL/min/1.73m2 () (test code = 3279862418) NU (test code = NU) Association of [...] tests). Lab Interpretation Abnormal (test code = 68128-6) [facility]PRO[facility] / [id number] 21:54:00 Test Item Value Reference Range Interpretation Comments WBC (test code = See_Comment [Automated message] 6690-2) The system [employer] generated this result transmitted ref erence range: 4.30 - 1 1.10 10*3/?L. The reference range was not used to int erpret this result as normal/abnormal . RBC (test code = 789-8) See_Comment [Au tomated message] The system [employer] generated this result transmitted ref erence range: [...] See_Comment L [Au tomated message] The system [employer] generated this result transmitted ref erence range: 166 - 35 8 10*3/?L. The reference range was not used to int erpret this result as normal/abnormal . MPV (test code = 9.0 fL 9.5-12.9 L 74729-0) RDW-CV (test code = 17.5 % 12-15.5 H 788-0) RDW-SD (test code = 56.3 fL 39-49.9 H 71280-6) NRBC x10^3 (test code = See_Comment [Au tomated message] 8199889259) The system [employer] generated this result transmitted ref erence range: 10*3/?L. The reference range was not used to int erpret this result as normal/abnormal . NRBC/100 WBC (test code See_Comment [Au tomated message] = 7672459006) The system [employer] generated this result transmitted ref erence range: 0.0 - 10 .0 /100 WBCs. The reference range was not used to int erpret this result as normal/abnormal . IPF % (test code = 2.3 % 1.3-7.7 Platelet count 4607544559) measured by fluorescence me thod. Lab Interpretation Abnormal (test code = 07529-0) [facility] HospitalMAGNESIUM2020-05-01 21:54:00 Test Item Value Reference Range Interpretation Comments MAGNESIUM (test code = 1849460879) 2.7 mg/dL 1.7-2.4 H Lab Interpretation (test code = Abnormal 88476-6) [facility] GLUCOSE (AUTOMATED)2019-11-12 21:29:00 Test Item Value Reference Range Interpretation Comments POCT GLU (test code = 4831548260) 135 mg/dL 70-110 H Lab Interpretation (test code = Abnormal 32310-0) [facility] ANGIOGRAM ABDOMEN/[id number] 20:21:03 Study is limited secondary to presence [...] have reviewed this study and agree with th jonoborigo report.[facility] - 30 minutes after transfusion of each [id number] 17:03:00 Test Item Value Reference Range Interpretation Comments WBC (test code = See_Comment [Automated message] 6690-2) The system [employer] generated this result transmitted ref erence range: 4.30 - 1 1.10 10*3/?L. The reference range was not used to int erpret this result as normal/abnormal . RBC (test code = 789-8) See_Comment L [Au tomated message] The system [employer] generated this result transmitted ref erence range: [...] See_Comment LL [Au tomated message] The system [employer] generated this result transmitted ref erence range: 166 - 35 8 10*3/?L. The reference range was not used to int erpret this result as normal/abnormal . MPV (test code = 9.1 fL 9.5-12.9 L 68383-6) RDW-CV (test code = 17.2 % 12-15.5 H 788-0) RDW-SD (test code = 57.1 fL 39-49.9 H 07471-6) NRBC x10^3 (test code = See_Comment [Au tomated message] 5924145219) The system [facility] [employer] generated this result transmitted ref erence range: 10*3/?L. The reference range was not used to int erpret this result as normal/abnormal . NRBC/100 WBC (test code See_Comment [Au tomated message] = 3320827127) The system [facility] generated this result transmitted ref erence range: 0.0 - 10 .0 /100 WBCs. The reference range was not used to int erpret this result as normal/abnormal . IPF % (test code = 2.7 % 1.3-7.7 Platelet count 3570367949) measured by fluorescence me thod. Lab Interpretation Abnormal (test code = 25977-7) [facility]2019-11-12 16:59:00 Test Item Value Reference Range Interpretation Comments POCT GLU (test code = 3991060303) 127 mg/dL 70-110 H Lab Interpretation (test code = Abnormal 91266-1) [facility] HospitalCLOSTRIDIUM DIFFICILE [id number] 16:24:00 Test Item Value Reference Range Interpretation Comments Clostridioides (Clostridium) Positive Negative A difficile (test code = 01573-4) Lab Interpretation (test code = Abnormal 03251-1) [facility] Platelets (in units): 1 Units~Indication: 2) Platelets < 50,000 with active hemorrhage orpotential to bleed from invasive [id number] 15:46:33 Test Item Value Reference Range Interpretation Comments Unit Blood Type (test A Pos code = 4410) ISBT Blood Type Code (test code = 456013) Unit Number (test code [id number] = 4411) Blood Expiration Date & Time (test code = 501343) Status Information Issued (test code = 4412) Product Identification Platelets (test code = 4413) Product Code (test [id number] Performed at [facility] code = 4414) Laboratory Services - [facility] Blood [address] [place] [id number] Free: [phone] A No. [id number] [facility] Packed RBC (in units), 2 Units 2019-11-12 13:34:31 Test Item Value Reference Range Interpretation Comments Cross Match Result Compatible (test code = 4409) ISBT Blood Type Code (test code = 417711) Unit Blood Type (test A Pos code = 4410) Unit Number (test [id number] code = 4411) Blood Expiration Date & Time (test code = 538986) Status Information Issued (test code = 4412) Product Red Blood Cells Identification (test code = 4413) Product Code (test [id number] Performed at [facility] code = 4414) Laboratory Services - [facility] Blood [address] [place] [address]Ihay Free: [phone] A No. [id number] [facility]2019-11-12 12:42:00 Test Item Value Reference Range Interpretation Comments POCT GLU (test code = 3275599063) 109 mg/dL 70-110 Lab Interpretation (test code = Normal 13070-7) [facility] Metabolic Panel (NA, K, CL, CO2, Glucose, BUN, Creatinine, CA)2019-11-12 11:04:00 Test Item Value Reference Range Interpretation Comments NA (test code = 133 mmol/L 135-145 L 1648951224) K (test code = 3.2 mmol/L 3.5-5 L 0627784166) CL (test code = 112 mmol/L 98-108 H 4966243741) CO2 TOTAL (test code = 12 mmol/L 23-31 L 8861459019) AGAP (test code = 2-16 8411182365) BUN (test code = 9 mg/dL 7-23 6243393738) GLUCOSE (test code = 46 mg/dL 70-110 LL 7615123320) CREATININE (test code = 0.22 mg/dL 0.5-1.04 L 8009661516) CALCIUM (test code = 5.5 mg/dL 8.6-10.6 LL 6384097605) eGFR Calculation mL/min/1.73m2 (Non-) (test code = 6582045106) eGFR Calculation mL/min/1.73m2 () (test code = 0494371680) NU (test code = NU) Association of [...] tests). Lab Interpretation Abnormal (test code = 83039-1) [facility] HospitalMagnesium Hmull1962-68-07 10:55:00 Test Item Value Reference Range Interpretation Comments MAGNESIUM (test code = 6669875732) 1.2 mg/dL 1.7-2.4 L Lab Interpretation (test code = Abnormal 86074-0) [facility] HospitalHep[facility] Function Panel (ALB, T.PRO, BILI T, BU/BC, ALT, AST, ALK, PHOS)2019-11-12 10:55:00 Test Item Value Reference Range Interpretation Comments TOTAL BILI (test code = 4953848996) 0.7 mg/dL 0.1-1.1 BILI UNCON (test code = 0460018271) 0.5 mg/dL 0.1-1.1 BILI CONJ (test code = 1101947645) 0.0 mg/dL 0-0.3 T PROTEIN (test code = 5955610212) 3.0 g/dL 6.3-8.2 L ALBUMIN (test code = 2501311684) 1.2 g/dL 3.5-5 L ALK PHOS (test code = 1931966864) 39 U/L 34-122 ALTv (test code = 1742-6) 10 U/L 5-35 AST(SGOT) (test code = 9470769388) 18 U/L 13-40 Lab Interpretation (test code = Abnormal 56384-1) [facility] WITH [id number] 10:54:00 Test Item Value Reference Range Interpretation [...] (test code = 53.6 fL 39-49.9 H 72208-7) RDW-CV (test code = 15.3 % 12-15.5 788-0) PLT (test code = See_Comment LL [Automated 777-3) message] The sy stem which generated this result transmitted reference range : 166 - 358 10*3/ ?L. The reference r pardeep was not used to interpret this result as normal/abnormal . MPV (test code = 9.6 fL 9.5-12.9 68150-9) IPF % (test code = 1.9 % 1.3-7.7 Platelet count 6062728279) measured by fluorescence method. NRBC/100 WBC (test See_Comment [Automat ed code = 3181779756) message] The system which generated this result transmitted reference range : 0.0 - 10.0 /100 WBCs. The refer ence range was not u sed to interpret th is result as normal/abnormal . NRBC x10^3 (test code <0.01 See_Comment [Auto mated = 4025503159) message] The s ystem which generated this result transmitted reference range : 10*3/?L. The reference range was not used to interpret this result as normal/abnormal . GRAN MAT (NEUT) % 81.5 % (test code = 770-8) IMM GRAN % (test code 1.10 % = 4830459083) LYMPH % (test code = 11.7 % 736-9) MONO % (test code = 4.6 % 5905-5) EOS % (test code = 0.9 % 713-8) BASO % (test code = 0.2 % 706-2) GRAN MAT x10^3(ANC) 4.45 10*3/uL 1.88-7.09 (test code = 5126820284) IMM GRAN x10^3 (test 0.06 10*3/uL 0-0.06 code = 2387744954) LYMPH x10^3 (test code 0.64 10*3/uL 1.32-3.29 L = 731-0) MONO x10^3 (test code 0.25 10*3/uL 0.33-0.92 L = 742-7) EOS x10^3 (test code = 0.05 10*3/uL 0.03-0.39 711-2) BASO x10^3 (test code <0.03 0.01-0.07 = 704-7) Lab Interpretation Abnormal (test code = 20452-9) [facility] HospitalProth[facility]bin [facility] / [id number] 10:30:00 Test Item Value Reference Range Interpretation [...] tions. Lab Interpretation (test Abnormal code = 85317-6) [facility] GLUCOSE (AUTOMATED)2019-11-12 10:07:00 Test Item Value Reference Range Interpretation Comments POCT GLU (test code = 9046301475) 45 mg/dL 70-110 LL Lab Interpretation (test code = Abnormal 55899-3) [facility] GLUCOSE (AUTOMATED)2019-11-12 10:07:00 Test Item Value Reference Range Interpretation Comments POCT GLU (test code = 5525524012) 101 mg/dL 70-110 Lab Interpretation (test code = Normal 75641-6) [facility] WITH [id number] 05:39:00 Test Item Value Reference Range Interpretation [...] (test code = 52.9 fL 39-49.9 H 97342-9) RDW-CV (test code = 15.4 % 12-15.5 788-0) PLT (test code = See_Comment LL [Automated 777-3) message] The sy stem which generated this result transmitted reference range : 166 - 358 10*3/ ?L. The reference r pardeep was not used to interpret this result as normal/abnormal . MPV (test code = 10.1 fL 9.5-12.9 29309-9) IPF % (test code = 2.1 % 1.3-7.7 Platelet count 5811038068) measured by fluorescence method. NRBC/100 WBC (test See_Comment [Automat ed code = 5727854154) message] The system which generated this result transmitted reference range : 0.0 - 10.0 /100 WBCs. The refer ence range was not u sed to interpret th is result as normal/abnormal . NRBC x10^3 (test code <0.01 See_Comment [Auto mated = 0926262762) message] The s ystem which generated this result transmitted reference range : 10*3/?L. The reference range was not used to interpret this result as normal/abnormal . GRAN MAT (NEUT) % 78.1 % (test code = 770-8) IMM GRAN % (test code 3.10 % = 2961384725) LYMPH % (test code = 13.3 % 736-9) MONO % (test code = 4.4 % 5905-5) EOS % (test code = 0.9 % 713-8) BASO % (test code = 0.2 % 706-2) GRAN MAT x10^3(ANC) 5.09 10*3/uL 1.88-7.09 (test code = 1755082728) IMM GRAN x10^3 (test 0.20 10*3/uL 0-0.06 H code = 5305594331) LYMPH x10^3 (test code 0.87 10*3/uL 1.32-3.29 L = 731-0) MONO x10^3 (test code 0.29 10*3/uL 0.33-0.92 L = 742-7) EOS x10^3 (test code = 0.06 10*3/uL 0.03-0.39 711-2) BASO x10^3 (test code <0.03 0.01-0.07 = 704-7) BANDS (test code = Increased A 1562490987) TOXIC CHANGES (test Present A code = 803-7) Lab Interpretation Abnormal (test code = 57441-8) [facility] GLUCOSE (AUTOMATED)2019-11-12 04:36:00 Test Item Value Reference Range Interpretation Comments POCT GLU (test code = 8599209138) 113 mg/dL 70-110 H Lab Interpretation (test code = Abnormal 82273-9) [facility] GLUCOSE (AUTOMATED)2019-11-12 01:15:00 Test Item Value Reference Range Interpretation Comments POCT GLU (test code = 7147881120) 103 mg/dL 70-110 Lab Interpretation (test code = Normal 34638-9) [facility] WITH [id number] 22:32:00 Test Item Value Reference Range Interpretation [...] (test code = 53.6 fL 39-49.9 H 34335-1) RDW-CV (test code = 15.3 % 12-15.5 788-0) PLT (test code = See_Comment LL [Automated 777-3) message] The sy stem which generated this result transmitted reference range : 166 - 358 10*3/ ?L. The reference r pardeep was not used to interpret this result as normal/abnormal . MPV (test code = 10.5 fL 9.5-12.9 46108-1) IPF % (test code = 3.0 % 1.3-7.7 Platelet count 1589386504) measured by fluorescence method. NRBC/100 WBC (test See_Comment [Automat ed code = 3515379225) message] The system which generated this result transmitted reference range : 0.0 - 10.0 /100 WBCs. The refer ence range was not u sed to interpret th is result as normal/abnormal . NRBC x10^3 (test code <0.01 See_Comment [Auto mated = 7480084316) message] The s ystem which generated this result transmitted reference range : 10*3/?L. The reference range was not used to interpret this result as normal/abnormal . GRAN MAT (NEUT) % 82.8 % (test code = 770-8) IMM GRAN % (test code 1.50 % = 4124490208) LYMPH % (test code = 10.9 % 736-9) MONO % (test code = 4.2 % 5905-5) EOS % (test code = 0.5 % 713-8) BASO % (test code = 0.1 % 706-2) GRAN MAT x10^3(ANC) 6.44 10*3/uL 1.88-7.09 (test code = 8721045110) IMM GRAN x10^3 (test 0.12 10*3/uL 0-0.06 H code = 0064241610) LYMPH x10^3 (test code 0.85 10*3/uL 1.32-3.29 L = 731-0) MONO x10^3 (test code 0.33 10*3/uL 0.33-0.92 = 742-7) EOS x10^3 (test code = 0.04 10*3/uL 0.03-0.39 711-2) BASO x10^3 (test code <0.03 0.01-0.07 = 704-7) BANDS (test code = Increased A 8229994206) Lab Interpretation Abnormal (test code = 67904-1) [facility]2019-11-11 21:50:00 Test Item Value Reference Range Interpretation Comments POCT GLU (test code = 7081176959) 105 mg/dL 70-110 Lab Interpretation (test code = Normal 22181-8) [facility] Packed RBC (in units), 1 Units 2019-11-11 18:52:37 Test Item Value Reference Range Interpretation Comments Cross Match Result Compatible (test code = 4409) ISBT Blood Type Code (test code = 682112) Unit Blood Type (test A Pos code = 4410) Unit Number (test [id number] code = 4411) Blood Expiration Date & Time (test code = 855158) Status Information Issued (test code = 4412) Product Red Blood Cells Identification (test code = 4413) Product Code (test [id number] Performed at [facility] code = 4414) Laboratory Services - [facility] Blood [id number] [facility] s [address]Axcn Free: [phone] A No. [id number] [facility] HospitalType and Screen - ONCE Imervun1999-58-77 18:38:13 Test Item Value Reference Range Interpretation Comments ABO & RH (test code A POSITIVE Performe d at [facility] = 20) Laboratory Serv [facility] Blood Bank3 01 [facility] s [address]Cogx Free: [phone] A No. [id number] IAT (test code = Negative Performed a t [facility] 1185) Laboratory Serv [facility] Blood Bank3 [address] [facility] s [address]Nrqr Free: [phone] A No. [id number] [facility] GLUCOSE (AUTOMATED)2019-11-11 17:29:00 Test Item Value Reference Range Interpretation Comments POCT GLU (test code = 8369031905) 233 mg/dL 70-110 H Lab Interpretation (test code = Abnormal 04851-9) [facility] HospitalMRSA / MSSA Screen by Brock CHOUDHURYIvfdf2038-69-02 16:55:00 Test Item Value Reference Range Interpretation Comments MSSA Screen by Brock CHOUDHURY (test code Negative Negative = 15996-7) MRSA/MSSA Positive? (test code = No No [id number]) Lab Interpretation (test code = Normal 09250-5) [facility] GLUCOSE (AUTOMATED)2019-11-11 16:29:00 Test Item Value Reference Range Interpretation Comments POCT GLU (test code = 6052684214) 211 mg/dL 70-110 H Lab Interpretation (test code = Abnormal 35256-9) [facility] [id number] 15:28:52 1. ?No evidence of bowel obstruction. [...] on this single phase study. Recommend furtherevaluation withMRI.[facility] WITH [id number] 15:24:00 Test Item Value Reference Range Interpretation [...] (test code = 56.2 fL 39-49.9 H 50276-9) RDW-CV (test code = 15.9 % 12-15.5 H 788-0) PLT (test code = See_Comment LL [Automated 777-3) message] The system which generated this result transmit thong reference range : 166 - 358 10*3/ ?L. The reference range was not u sed to interpret th is result as normal/abnormal . MPV (test code = 10.7 fL 9.5-12.9 11246-5) IPF % (test code = 3.6 % 1.3-7.7 Platelet count 8041488680) measured by fluorescence method. NRBC/100 WBC (test See_Comment [Automat ed code = 1525423309) message] The system which generated this result transmit thong reference range : 0.0 - 10.0 /100 WBCs. The reference range was not used to interpret this result as normal/abnormal . NRBC x10^3 (test code <0.01 See_Comment [Auto mated = 3428733721) message] The system which generated this result transmit thong reference range : 10*3/?L. The reference range was not used to interpret this result as normal/abnormal . GRAN MAT (NEUT) % 83.1 % (test code = 770-8) IMM GRAN % (test code 1.80 % = 2971836078) LYMPH % (test code = 10.5 % 736-9) MONO % (test code = 4.4 % 5905-5) EOS % (test code = 0.1 % 713-8) BASO % (test code = 0.1 % 706-2) GRAN MAT x10^3(ANC) 7.11 10*3/uL 1.88-7.09 H (test code = 7905477712) IMM GRAN x10^3 (test 0.15 10*3/uL 0-0.06 H code = 0083200914) LYMPH x10^3 (test 0.90 10*3/uL 1.32-3.29 L code = 731-0) MONO x10^3 (test code 0.38 10*3/uL 0.33-0.92 = 742-7) EOS x10^3 (test code <0.03 0.03-0.39 L = 711-2) BASO x10^3 (test code <0.03 0.01-0.07 = 704-7) BANDS (test code = MARKED INCREASED A 9958515407) DOHLE BODIES (test Present A code = 7792-5) REACT LYMPHS (test Rare code = 3217373674) TOXIC CHANGES (test Present A code = 803-7) Lab Interpretation Abnormal (test code = 73606-9) [facility] 14[facility]47:00 Test Item Value Reference Range Interpretation Comments Fibrinogen (test code = 4922595309) 356 mg/dL 167-453 Lab Interpretation (test code = Normal 01523-8) [facility] [id number] 14:04:00 Test Item Value Reference Range Interpretation Comments URINE CULTURE (test 10,000 - 100,000 CFU/mL code = 630-4) mixed aerobic organisms - suggests endogenous microbial contamination [facility] - To confirm nasogastric tube placement.2019-11-11 14:03:13 Nonspecific gaseous dilatation of transverse colon, which can be seen inthe setting of partial distal large bowel obstruction or adynamic ileus. No esophagogastric tube, visualized in the ejywk-jk-rlte. Preliminary Report Dictated by Resident: Liz Quigley MD., have reviewed this study and agree with theabove report.EXAM: XR ABDOMEN 1 VW HISTORY: 59 years-old Female; NG placement TECHNIQUE: Frontal radiograph of the abdomen and pelvis was obtained. COMPARISON: KUB 11/09/2019. FINDINGS: No esophagogastric tube was visualized in the ckxgs-re-insc. Nonspecific gaseous dilatation of transverse colon is [...] esophagogastric tube was visu alized in the tjjxv-sp-kweh.Nonspecific gaseous dilatation of transverse colon is noted, [...] adynamic ileus.No esophagogastric tube, visualized in the qckfw-jp-xvbc.Preliminary Report Dictated by Resident: Liz Arias MD., have reviewedthis study and agree with theabove report.[facility] 12:47:00 Test Item Value Reference Range Interpretation Comments POCT GLU (test code = 0825643144) 228 mg/dL 70-110 H Lab Interpretation (test code = Abnormal 38131-4) [facility] [id number] 11:44:00 Test Item Value Reference Range Interpretation Comments NT-proBNP (test code 400 pg/mL See_Comment H [Autom ated = 7171182105) message] The system which generated this result transmitted reference range : <=125. The reference range was not used to interpret this result as normal/abnormal . NU (test code = NU) Biotin has been reported to cause a negative bias, interpret results relative to patient's use of biotin. Lab Interpretation Abnormal (test code = 25617-4) [facility]. METABOLIC PANEL (87726)2019-11-11 11:32:00 Test Item Value Reference Range Interpretation Comments NA (test code = 136 mmol/L 135-145 1187067083) K (test code = 3.6 mmol/L 3.5-5 1880993986) CL (test code = 110 mmol/L 98-108 H 2597695109) CO2 TOTAL (test code = 20 mmol/L 23-31 L 3963189976) AGAP (test code = 2-16 0108822680) BUN (test code = 17 mg/dL 7-23 1339140731) GLUCOSE (test code = 153 mg/dL 70-110 H 1707442872) CREATININE (test code = 0.47 mg/dL 0.5-1.04 L 8660264046) TOTAL BILI (test code = 2.0 mg/dL 0.1-1.1 H 5715144914) CALCIUM (test code = 6.6 mg/dL 8.6-10.6 L 2314841927) T PROTEIN (test code = 5.0 g/dL 6.3-8.2 L 4126773751) ALBUMIN (test code = 2.1 g/dL 3.5-5 L 2773556822) ALK PHOS (test code = 79 U/L 34-122 6000398961) ALTv (test code = 21 U/L 5-35 1742-6) AST(SGOT) (test code = 27 U/L 13-40 8652416715) eGFR Calculation mL/min/1.73m2 (Non-) (test code = 9064665078) eGFR Calculation mL/min/1.73m2 () (test code = 5586045334) NU (test code = NU) Association of [...] tests). Lab Interpretation Abnormal (test code = 49055-9) [facility] 11:32:00 Test Item Value Reference Range Interpretation Comments PHOSPHORUS (test code = 1528808225) 1.4 mg/dL 2.5-5 L Lab Interpretation (test code = Abnormal 86727-1) [facility] WITH [id number] 10:41:00 Test Item Value Reference Range Interpretation Comments WBC (test code = See_Comment [Automated 0379-2) message] The sy stem which generated this result transmitted reference range : 4.30 - 11.10 10*3/?L. The reference range was not used to interpret this result as normal/abnormal . RBC (test code = See_Comment L [Automated 589-8) message] The sy stem which generated this [...] (test code = 57.1 fL 39-49.9 H 05873-1) RDW-CV (test code = 15.8 % 12-15.5 H 788-0) PLT (test code = See_Comment LL [Automated 777-3) message] The sy stem which generated this result transmitted reference range : 166 - 358 10*3/ ?L. The reference r pardeep was not used to interpret this result as normal/abnormal . MPV (test code = 11.7 fL 9.5-12.9 65409-5) IPF % (test code = 4.7 % 1.3-7.7 Platelet count 2392524843) measured by fluorescence method. NRBC/100 WBC (test See_Comment [Automat ed code = 7386617194) message] The system which generated this result transmitted reference range : 0.0 - 10.0 /100 WBCs. The refer ence range was not u sed to interpret th is result as normal/abnormal . NRBC x10^3 (test code See_Comment [Auto mated = 5504482607) message] The s ystem which generated this result transmitted reference range : 10*3/?L. The reference range was not used to interpret this result as normal/abnormal . GRAN MAT (NEUT) % 78.4 % (test code = 770-8) IMM GRAN % (test code 5.40 % = 2114805255) LYMPH % (test code = 11.3 % 736-9) MONO % (test code = 4.7 % 5905-5) EOS % (test code = 0.1 % 713-8) BASO % (test code = 0.1 % 706-2) GRAN MAT x10^3(ANC) 6.12 10*3/uL 1.88-7.09 (test code = 8539149715) IMM GRAN x10^3 (test 0.42 10*3/uL 0-0.06 H code = 8482198282) LYMPH x10^3 (test code 0.88 10*3/uL 1.32-3.29 L = 731-0) MONO x10^3 (test code 0.37 10*3/uL 0.33-0.92 = 742-7) EOS x10^3 (test code = <0.03 0.03-0.39 L 711-2) BASO x10^3 (test code <0.03 0.01-0.07 = 704-7) BASO STIPPLING (test Present A code = 703-9) Lab Interpretation Abnormal (test code = 73874-9) [facility]-11 09:33:00 Test Item Value Reference Range Interpretation Comments POCT GLU (test code = 6091527910) 168 mg/dL 70-110 H Lab Interpretation (test code = Abnormal 91047-2) [facility] WITH [id number] 06:13:00 Test Item Value Reference Range Interpretation [...] (test code = 56.0 fL 39-49.9 H 71411-9) RDW-CV (test code = 16.0 % 12-15.5 H 788-0) PLT (test code = See_Comment LL [Automated 777-3) message] The system which generated this result transmit thong reference range : 166 - 358 10*3/ ?L. The reference range was not u sed to interpret th is result as normal/abnormal . MPV (test code = 10.2 fL 9.5-12.9 15610-4) IPF % (test code = 2.8 % 1.3-7.7 Platelet count 1422687994) measured by fluorescence method. NRBC/100 WBC (test See_Comment [Automat ed code = 7179982477) message] The system which generated this result transmit thong reference range : 0.0 - 10.0 /100 WBCs. The reference range was not used to interpret this result as normal/abnormal . NRBC x10^3 (test code <0.01 See_Comment [Auto mated = 7255327443) message] The system which generated this result transmit thong reference range : 10*3/?L. The reference range was not used to interpret this result as normal/abnormal . GRAN MAT (NEUT) % 85.0 % (test code = 770-8) IMM GRAN % (test code 0.90 % = 6636371267) LYMPH % (test code = 10.2 % 736-9) MONO % (test code = 3.8 % 5905-5) EOS % (test code = 0.1 % 713-8) BASO % (test code = 0.0 % 706-2) GRAN MAT x10^3(ANC) 6.63 10*3/uL 1.88-7.09 (test code = 0697277894) IMM GRAN x10^3 (test 0.07 10*3/uL 0-0.06 H code = 1883053511) LYMPH x10^3 (test 0.80 10*3/uL 1.32-3.29 L code = 731-0) MONO x10^3 (test code 0.30 10*3/uL 0.33-0.92 L = 742-7) EOS x10^3 (test code <0.03 0.03-0.39 L = 711-2) BASO x10^3 (test code <0.03 0.01-0.07 = 704-7) BANDS (test code = MARKED INCREASED A 1304479898) Lab Interpretation Abnormal (test code = 92226-0) [facility] Metabolic Panel (NA, K, CL, CO2, Glucose, BUN, Creatinine, CA)2019-11-11 06:00:00 Test Item Value Reference Range Interpretation Comments NA (test code = 138 mmol/L 135-145 1687448231) K (test code = 3.6 mmol/L 3.5-5 6417760655) CL (test code = 111 mmol/L 98-108 H 7635044972) CO2 TOTAL (test code = 20 mmol/L 23-31 L 5331078433) AGAP (test code = 2-16 1965912399) BUN (test code = 17 mg/dL 7-23 1224758175) GLUCOSE (test code = 136 mg/dL 70-110 H 5775073241) CREATININE (test code = 0.46 mg/dL 0.5-1.04 L 0783593164) CALCIUM (test code = 6.5 mg/dL 8.6-10.6 L 4675704366) eGFR Calculation mL/min/1.73m2 (Non-) (test code = 2437248113) eGFR Calculation mL/min/1.73m2 () (test code = 8892773276) NU (test code = NU) Association of [...] tests). Lab Interpretation Abnormal (test code = 20974-7) [facility] HospitalMagnesium [id number] 06:00:00 Test Item Value Reference Range Interpretation Comments MAGNESIUM (test code = 4222195314) 1.3 mg/dL 1.7-2.4 L Lab Interpretation (test code = Abnormal 04271-9) [facility] Function Panel (ALB, T.PRO, BILI T, BU/BC, ALT, AST, ALK, PHOS)2019-11-11 06:00:00 Test Item Value Reference Range Interpretation Comments TOTAL BILI (test code = 3066912314) 2.1 mg/dL 0.1-1.1 H BILI UNCON (test code = 5156767237) 1.6 mg/dL 0.1-1.1 H BILI CONJ (test code = 6361071951) 0.0 mg/dL 0-0.3 T PROTEIN (test code = 4268806026) 4.8 g/dL 6.3-8.2 L ALBUMIN (test code = 0873753326) 2.0 g/dL 3.5-5 L ALK PHOS (test code = 1744043019) 59 U/L 34-122 ALTv (test code = 1742-6) 19 U/L 5-35 AST(SGOT) (test code = 5199547690) 27 U/L 13-40 Lab Interpretation (test code = Abnormal 88744-6) [facility] HospitalProthrombin Time / [id number] 05:43:00 Test Item Value Reference Range Interpretation [...] tions. Lab Interpretation (test Abnormal code = 22562-3) [facility] GLUCOSE (AUTOMATED)2019-11-11 05:18:00 Test Item Value Reference Range Interpretation Comments POCT GLU (test code = 1681556497) 191 mg/dL 70-110 H Lab Interpretation (test code = Abnormal 90381-5) [facility] GLUCOSE (AUTOMATED)2019-11-11 02:28:00 Test Item Value Reference Range Interpretation Comments POCT GLU (test code = 4528983999) 202 mg/dL 70-110 H Lab Interpretation (test code = Abnormal 35935-1) [facility] HospitalALPHA [id number] 00:34:00 Test Item Value Reference Range Interpretation Comments AFP (test code = 8.4 ng/mL See_Comment H [Automated 1610312635) message] The system which generated this result transmitted reference range : <=7.5. The reference range was not used to interpret this result as normal/abnormal . NU (test code = NU) Biotin has been reported to cause a negative bias, interpret results relative to patient's use of biotin. Lab Interpretation Abnormal (test code = 43151-0) [facility] WITH [id number] 00:30:00 Test Item Value Reference Range Interpretation [...] (test code = 53.6 fL 39-49.9 H 64215-1) RDW-CV (test code = 15.7 % 12-15.5 H 788-0) PLT (test code = See_Comment LL [Automated 777-3) message] The system which generated this result transmit thong reference range : 166 - 358 10*3/ ?L. The reference range was not u sed to interpret th is result as normal/abnormal . MPV (test code = 10.5 fL 9.5-12.9 35043-6) IPF % (test code = 4.0 % 1.3-7.7 Platelet count 2473166339) measured by fluorescence method. NRBC/100 WBC (test See_Comment [Automat ed code = 4115766807) message] The system which generated this result transmit thong reference range : 0.0 - 10.0 /100 WBCs. The reference range was not used to interpret this result as normal/abnormal . NRBC x10^3 (test code <0.01 See_Comment [Auto mated = 2775111161) message] The system which generated this result transmit thong reference range : 10*3/?L. The reference range was not used to interpret this result as normal/abnormal . GRAN MAT (NEUT) % 85.3 % (test code = 770-8) IMM GRAN % (test code 2.50 % = 9686470386) LYMPH % (test code = 7.7 % 736-9) MONO % (test code = 4.4 % 5905-5) EOS % (test code = 0.0 % 713-8) BASO % (test code = 0.1 % 706-2) GRAN MAT x10^3(ANC) 8.57 10*3/uL 1.88-7.09 H (test code = 6080678874) IMM GRAN x10^3 (test 0.25 10*3/uL 0-0.06 H code = 3796820456) LYMPH x10^3 (test 0.77 10*3/uL 1.32-3.29 L code = 731-0) MONO x10^3 (test code 0.44 10*3/uL 0.33-0.92 = 742-7) EOS x10^3 (test code <0.03 0.03-0.39 L = 711-2) BASO x10^3 (test code <0.03 0.01-0.07 = 704-7) BASO STIPPLING (test Present A code = 703-9) LENY CELLS (test code 2+ See_Comment A [Auto mated = 7790-3) message] The system which generated this result transmit thong reference range : (none). The reference range was not used to interpret this result as normal/abnormal . BANDS (test code = MARKED INCREASED A 1666421861) Lab Interpretation Abnormal (test code = 24744-9) [facility] HospitalLadcic Acid Whole [id number] 00:08:00 Test Item Value Reference Range Interpretation Comments LACTIC ACID (test code = 2.62 mmol/L 0.5-2.2 H 2278879876) Lab Interpretation (test code = Abnormal 88765-2) [facility]POFL [facility])2019-11-10 21:36:00 Test Item Value Reference Range Interpretation Comments POCT GLU (test code = 5550959640) 260 mg/dL 70-110 H Lab Interpretation (test code = Abnormal 35523-5) [facility]MINAL [id number] 18:12:00 Test Item Value Reference Range Interpretation Comments NT-proBNP (test code 209 pg/mL See_Comment H [Autom ated = 9681333306) message] The system which generated this result transmitted reference range : <=125. The reference range was not used to interpret this result as normal/abnormal . NU (test code = NU) Biotin has been reported to cause a negative bias, interpret results relative to patient's use of biotin. Lab Interpretation Abnormal (test code = 59306-5) [facility] GLUCOSE (AUTOMATED)2019-11-10 16:33:00 Test Item Value Reference Range Interpretation Comments POCT GLU (test code = 4837171744) 299 mg/dL 70-110 H Lab Interpretation (test code = Abnormal 82787-6) [facility] GLUCOSE (AUTOMATED)2019-11-10 13:00:00 Test Item Value Reference Range Interpretation Comments POCT GLU (test code = 6579813951) 351 mg/dL 70-110 H Lab Interpretation (test code = Abnormal 92038-0) [facility] HospitalHEPATIC FUNCTION PANEL (60889) (ALB,T.PRO,BILI T,BU/BC,ALT,AST,ALK PHOS)2019-11-10 11:25:00 Test Item Value Reference Range Interpretation Comments TOTAL BILI (test code = 6732491399) 3.8 mg/dL 0.1-1.1 H BILI UNCON (test code = 1409338038) 2.9 mg/dL 0.1-1.1 H BILI CONJ (test code = 9257161320) 0.2 mg/dL 0-0.3 T PROTEIN (test code = 9841900650) 7.5 g/dL 6.3-8.2 ALBUMIN (test code = 8075752744) 3.7 g/dL 3.5-5 ALK PHOS (test code = 9024497935) 128 U/L 34-122 H ALTv (test code = 1742-6) 36 U/L 5-35 H AST(SGOT) (test code = 1050466095) 61 U/L 13-40 H Lab Interpretation (test code = Abnormal 70739-0) [facility] HospitalLactic Acid Whole [id number] 10:41:00 Test Item Value Reference Range Interpretation Comments LACTIC ACID (test code = 2.41 mmol/L 0.5-2.2 H 9911910050) Lab Interpretation (test code = Abnormal 98630-4) [facility] GLUCOSE (AUTOMATED)2019-11-10 09:26:00 Test Item Value Reference Range Interpretation Comments POCT GLU (test code = 3720946820) 371 mg/dL 70-110 H Lab Interpretation (test code = Abnormal 16119-5) [facility] HospitalGlycosylated Hemoglobin (A1C)2019-11-10 08:42:00 Test Item Value Reference [...] Indicated Lab Interpretation Abnormal (test code = 79206-8) [facility] WITH [id number] 07:08:00 Test Item Value Reference Range Interpretation [...] (test code = 53.3 fL 39-49.9 H 20401-8) RDW-CV (test code = 15.7 % 12-15.5 H 788-0) PLT (test code = See_Comment L [Automated 777-3) message] The sy stem which generated this result transmitted reference range : 166 - 358 10*3/ ?L. The reference r pardeep was not used to interpret this result as normal/abnormal . MPV (test code = 9.7 fL 9.5-12.9 66220-7) IPF % (test code = 3.2 % 1.3-7.7 Platelet count 4230548137) measured by fluorescence method. NRBC/100 WBC (test See_Comment [Automat ed code = 9380888706) message] The system which generated this result transmitted reference range : 0.0 - 10.0 /100 WBCs. The refer ence range was not u sed to interpret th is result as normal/abnormal . NRBC x10^3 (test code <0.01 See_Comment [Auto mated = 4131866994) message] The s ystem which generated this result transmitted reference range : 10*3/?L. The reference range was not used to interpret this result as normal/abnormal . GRAN MAT (NEUT) % 89.8 % (test code = 770-8) IMM GRAN % (test code 0.60 % = 2326899988) LYMPH % (test code = 6.1 % 736-9) MONO % (test code = 3.3 % 5905-5) EOS % (test code = 0.0 % 713-8) BASO % (test code = 0.2 % 706-2) GRAN MAT x10^3(ANC) 12.10 10*3/uL 1.88-7.09 H (test code = 3523568301) IMM GRAN x10^3 (test 0.08 10*3/uL 0-0.06 H code = 3866393603) LYMPH x10^3 (test 0.82 10*3/uL 1.32-3.29 L code = 731-0) MONO x10^3 (test code 0.44 10*3/uL 0.33-0.92 = 742-7) EOS x10^3 (test code <0.03 0.03-0.39 L = 711-2) BASO x10^3 (test code 0.03 10*3/uL 0.01-0.07 = 704-7) PLT ESTIMATE (test Decreased Normal A code = 9317-9) Lab Interpretation Abnormal (test code = 90677-0) [facility] Metabolic Panel (NA, K, CL, CO2, GLUCOSE, BUN, CREATININE, CA)2019-11-10 06:43:00 Test Item Value Reference Range Interpretation Comments NA (test code = 139 mmol/L 135-145 4811329563) K (test code = 4.7 mmol/L 3.5-5 2843085808) CL (test code = 107 mmol/L 98-108 4202335711) CO2 TOTAL (test code = 19 mmol/L 23-31 L 3988745631) AGAP (test code = 2-16 7704314900) BUN (test code = 22 mg/dL 7-23 9570481905) GLUCOSE (test code = 344 mg/dL 70-110 H 0782394911) CREATININE (test code = 0.79 mg/dL 0.5-1.04 8360271883) CALCIUM (test code = 8.3 mg/dL 8.6-10.6 L 0188408587) eGFR Calculation mL/min/1.73m2 (Non-) (test code = 9466349282) eGFR Calculation mL/min/1.73m2 () (test code = 4406036634) NU (test code = NU) Association of [...] tests). Lab Interpretation Abnormal (test code = 80808-6) [facility] HospitalL[facility] Acid Whole [id number] 06:17:00 Test Item Value Reference Range Interpretation Comments LACTIC ACID (test code = 3.22 mmol/L 0.5-2.2 H 8908961879) Lab Interpretation (test code = Abnormal 43682-8) [facility]2019-11-10 04:13:00 Test Item Value Reference Range Interpretation Comments POCT GLU (test code = 6110924867) 350 mg/dL 70-110 H Lab Interpretation (test code = Abnormal 60642-1) [facility] HospitalXR CHEST 1 [id number] 03:01:54 No acute intrathoracic abnormality. Preliminary Report [...] reviewed this study and agree with the abovereport.[facility] HospitalBASIC METABOLIC PANEL (NA, K, CL, CO2, GLUCOSE, BUN, CREATININE, CA)2019-11-10 02:22:00 Test Item Value Reference Range Interpretation Comments NA (test code = 137 mmol/L 135-145 3685331442) K (test code = 5.3 mmol/L 3.5-5 H 4020963757) CL (test code = 105 mmol/L 98-108 6087859003) CO2 TOTAL (test code = 22 mmol/L 23-31 L 0870004549) AGAP (test code = 2-16 6100053260) BUN (test code = 24 mg/dL 7-23 H 0555021101) GLUCOSE (test code = 339 mg/dL 70-110 H 5627696212) CREATININE (test code = 0.79 mg/dL 0.5-1.04 0619399952) CALCIUM (test code = 8.1 mg/dL 8.6-10.6 L 4697237754) eGFR Calculation mL/min/1.73m2 (Non-) (test code = 3819871485) eGFR Calculation mL/min/1.73m2 () (test code = 4992923764) NU (test code = NU) Association of [...] tests). Lab Interpretation Abnormal (test code = 42460-4) [facility] W [id number] 02:16:57 1. Dilated small bowel loops in [...] 4.5 cm lobulated hypodense lesion in segment [id number] Hounsfield units, indeterminate. Scattered subcentimeter calcificationsare seen. [...] 4.5 cm lobulated hypodense lesion in segment ttarecax52 Hounsfield units, indeterminate. Scattered subcentimeter calcificationsare seen.GALLBLADDER: [...] time of dictation.Preliminary Report Dictated by Resident: Rolo Dyer, Yousuf Coffman MD., have reviewed this study and agree with the abovereport.[facility] HospitalLactic Acid Whole Nlvva0868-07-93 02:10:00 Test Item Value Reference Range Interpretation Comments LACTIC ACID (test code = 4.56 mmol/L 0.3-2.6 3463859669) [facility]URIN[facility]IS2020-04-29 01:05:00 Test Item Value Reference Range Interpretation Comments APPEARANCE (test code = Clear Clear 1948026814) COLOR (test code = [place] Yellow A 6267358456) PH (test code = 4.8-8.0 4818373229) SP GRAVITY (test code = 1.003-1.030 5135145287) GLU U QUAL (test code = 500 mg/dL Normal A 7223983878) BLOOD (test code = Negative Negative 4803867175) KETONES (test code = 5 mg/dL Negative A 0447380804) PROTEIN (test code = Negative Negative 2887-8) UROBILIN (test code = 4.0 mg/dL Normal A 7750801532) BILIRUBIN (test code = Negative Negative 7242380138) NITRITE (test code = Negative Negative 2538461364) LEUK GUADALUPE (test code = Negative Negative 4967312747) RBC/HPF (test code = See_Comment [Autom ated message] 5859081060) The system [employer] generated this result transmit thong reference range : 0 - 3 HPF. The refe rence range was not u sed to interpret th is result as normal/abnormal . WBC/HPF (test code = <1 See_Comment [Autom ated message] 4465190418) The system [employer] generated this result transmit thong reference range : 0 - 5 HPF. The refe rence range was not u sed to interpret th is result as normal/abnormal . BACTERIA (test code = Moderate Negative A 8077498510) MUCOUS (test code = Slight Negative LPF A 1456886828) SQ EPITH (test code = HPF 5669277339) HYAL CAST (test code = See_Comment H [Aut omated message] 9135047836) The system [employer] h generated this result transmit thong reference range : <=2 LPF. The refere nce range was not u sed to interpret th is result as normal/abnormal . Lab Interpretation (test Abnormal code = 94837-9) [facility] HospitalType and Screen - ONCE [id number] 01:03:27 Test Item Value Reference Range Interpretation Comments ABO & RH (test code A Positive Performe d at [facility] = 20) Laboratory Serv [facility]24 [address] [place], [place] [address]Toll Free: [phone] A No. [id number] IAT (test code = Negative Performed a t [facility] 1185) Laboratory Serv [facility] [place] [address] Free: [phone] A No. [id number] [facility]00 Test Item Value Reference Range Interpretation Comments APTT Patient (test See_Comment [Automat ed code = 3173-2) message] The system which generated this result transmitted reference range : 23 - 38 Seconds . The reference range was not used to interpr et this result as normal/abnormal . NU (test code = NU) The [facility] patient population mean normal value for aPTT is 30 seconds. Lab Interpretation Normal (test code = 37370-3) [facility] HospitalPROTHROMBIN TIME / [id number] 00:24:00 Test Item Value Reference Range Interpretation Comments PROTIME PATIENT (test See_Comment [Auto mated message] code = 5964-2) The system [employer] ich generated this result transmitted ref erence range: 12.0 - 1 4.7 Seconds. The re ference range was not u sed to interpret this result as normal/abnor mal. INR (test code = 6301-6) Nor mal INR <1.1; Warfarin Therap eutic range 2.0 to 3. 0 or 2.5 to 3.5, dep ending upon the indica tions. Lab Interpretation (test Normal code = 81191-4) [facility] HospitalCORONAVIRUS COVID-19 [id number] 00:15:00 Test Item Value Reference Range Interpretation Comments SARS-CoV-2 (test code = Not Detected Not Detected 92301-6) NU (test code = NU) ID NOW COVID-19 Assay is an isothermal nucleic acid amplification test intended for the qualitative detection of nucleic acid from SARS-CoV-2 viral RNA in nasopharyngeal ([employer]OR[employer]) specimens. It is used under Emergency Use [...] indicated. Lab Interpretation Normal (test code = 14598-4) [facility] WITH [id number] 23:58:00 Test Item Value Reference Range Interpretation Comments WBC (test code = See_Comment H [Automated 6890-2) message] The sy stem which generated this result transmitted reference range : 4.30 - 11.10 10*3/?L. The reference range was not used to interpret this result as normal/abnormal . RBC (test code = See_Comment [Automated 699-8) message] The sy stem which generated this [...] (test code = 50.8 fL 39-49.9 H 47740-4) RDW-CV (test code = 15.3 % 12-15.5 788-0) PLT (test code = See_Comment L [Automated 777-3) message] The sy stem which generated this result transmitted reference range : 166 - 358 10*3/ ?L. The reference r pardeep was not used to interpret this result as normal/abnormal . MPV (test code = 10.4 fL 9.5-12.9 41515-2) IPF % (test code = 3.4 % 1.3-7.7 Platelet count 3413891024) measured by fluorescence method. NRBC/100 WBC (test See_Comment [Automat ed code = 2302436888) message] The system which generated this result transmitted reference range : 0.0 - 10.0 /100 WBCs. The refer ence range was not u sed to interpret th is result as normal/abnormal . NRBC x10^3 (test code <0.01 See_Comment [Auto mated = 7821743173) message] The s ystem which generated this result transmitted reference range : 10*3/?L. The reference range was not used to interpret this result as normal/abnormal . GRAN MAT (NEUT) % 92.2 % (test code = 770-8) IMM GRAN % (test code 0.80 % = 0908763558) LYMPH % (test code = 3.6 % 736-9) MONO % (test code = 3.2 % 5905-5) EOS % (test code = 0.0 % 713-8) BASO % (test code = 0.2 % 706-2) GRAN MAT x10^3(ANC) 18.80 10*3/uL 1.88-7.09 H (test code = 0403557711) IMM GRAN x10^3 (test 0.16 10*3/uL 0-0.06 H code = 0526831388) LYMPH x10^3 (test 0.73 10*3/uL 1.32-3.29 L code = 731-0) MONO x10^3 (test code 0.65 10*3/uL 0.33-0.92 = 742-7) EOS x10^3 (test code <0.03 0.03-0.39 L = 711-2) BASO x10^3 (test code 0.05 10*3/uL 0.01-0.07 = 704-7) Lab Interpretation Abnormal (test code = 75425-1) [facility] HospitalCOMP. METABOLIC PANEL (23925)2019-11-09 23:47:00 Test Item Value Reference Range Interpretation Comments NA (test code = 138 mmol/L 135-145 8338943590) K (test code = 5.8 mmol/L 3.5-5 H 0379030572) CL (test code = 101 mmol/L 98-108 8361220594) CO2 TOTAL (test code = 28 mmol/L 23-31 8265720838) AGAP (test code = 2-16 9367054938) BUN (test code = 27 mg/dL 7-23 H 5246842679) GLUCOSE (test code = 358 mg/dL 70-110 H 4318636165) CREATININE (test code = 0.92 mg/dL 0.5-1.04 1084820066) TOTAL BILI (test code = 3.3 mg/dL 0.1-1.1 H 3152598669) CALCIUM (test code = 9.2 mg/dL 8.6-10.6 8446305772) T PROTEIN (test code = 8.6 g/dL 6.3-8.2 H 5147773052) ALBUMIN (test code = 4.4 g/dL 3.5-5 1665806194) ALK PHOS (test code = 161 U/L 34-122 H 3750565643) ALTv (test code = 43 U/L 5-35 H 1742-6) AST(SGOT) (test code = 82 U/L 13-40 H 0547331334) eGFR Calculation mL/min/1.73m2 (Non-) (test code = 4383666302) eGFR Calculation mL/min/1.73m2 () (test code = 6752030931) NU (test code = NU) Association of [...] tests). Lab Interpretation Abnormal (test code = 39546-8) [facility] HospitalLIPASE2020-04-28 23:47:00 Test Item Value Reference Range Interpretation Comments LIPASE (test code = 8137696242) 120 U/L 0-220 Lab Interpretation (test code = Normal 93774-5) [facility] HospitalLactic Acid Whole [id number] 23:24:00 Test Item Value Reference Range Interpretation Comments LACTIC ACID (test code = 3.95 mmol/L 0.3-2.6 7925290434) [facility] HospitalALPHA [id number] 22:56:00 Test Item Value Reference Range Interpretation Comments AFP (test code = 12.3 ng/mL See_Comment H [Automated 7820028391) message] The system which generated this result transmitted reference range : <=7.5. The reference range was not used to interpret this result as normal/abnormal . NU (test code = NU) Biotin has been reported to cause a negative bias, interpret results relative to patient's use of biotin. Lab Interpretation Abnormal (test code = 56433-5) [facility] HospitalTOTAL IRON BINDING [id number] 21:33:00 Test Item Value Reference Range Interpretation Comments TIBC (test code = 2412948481) 390 ug/dL 250-410 Lab Interpretation (test code = Normal 32052-2) [facility] HospitalHEPATIC FUNCTION PANEL (36402) (ALB,T.PRO,BILI T,BU/BC,ALT,AST,ALK PHOS)2019-10-07 21:24:00 Test Item Value Reference Range Interpretation Comments TOTAL BILI (test code = 4262754179) 1.0 mg/dL 0.1-1.1 BILI UNCON (test code = 6050350484) 0.9 mg/dL 0.1-1.1 BILI CONJ (test code = 8431015296) 0.0 mg/dL 0-0.3 T PROTEIN (test code = 9167921606) 7.6 g/dL 6.3-8.2 ALBUMIN (test code = 2955096812) 3.9 g/dL 3.5-5 ALK PHOS (test code = 0013466112) 141 U/L 34-122 H ALTv (test code = 1742-6) 41 U/L 5-35 H AST(SGOT) (test code = 6094356487) 56 U/L 13-40 H Lab Interpretation (test code = Abnormal 74020-8) [facility] HospitalBASIC METABOLIC PANEL (NA, K, CL, CO2, GLUCOSE, BUN, CREATININE, CA)2019-10-07 21:24:00 Test Item Value Reference Range Interpretation Comments NA (test code = 136 mmol/L 135-145 5669583254) K (test code = 4.3 mmol/L 3.5-5 3846937398) CL (test code = 100 mmol/L 98-108 0788095216) CO2 TOTAL (test code = 26 mmol/L 23-31 8873696676) AGAP (test code = 2-16 5063137317) BUN (test code = 19 mg/dL 7-23 8279913433) GLUCOSE (test code = 239 mg/dL 70-110 H 5611330362) CREATININE (test code = 1.09 mg/dL 0.5-1.04 H 6838812358) CALCIUM (test code = 9.6 mg/dL 8.6-10.6 7007259194) eGFR Calculation mL/min/1.73m2 (Non-) (test code = 1297754606) eGFR Calculation mL/min/1.73m2 () (test code = 3992508277) NU (test code = NU) Association of [...] tests). Lab Interpretation Abnormal (test code = 02657-1) [facility] WITH [id number] 20:18:00 Test Item Value Reference Range Interpretation Comments WBC (test code = See_Comment [Automated 6034-2) message] The sy stem which generated this result transmitted reference range : 4.30 - 11.10 10*3/?L. The reference range was not used to interpret this result as normal/abnormal . RBC (test code = See_Comment [Automated 216-4) message] The sy stem which generated this [...] RDW-SD (test code = 48.0 fL 39-49.9 69137-2) RDW-CV (test code = 14.8 % 12-15.5 788-0) PLT (test code = See_Comment L [Automated 777-3) message] The sy stem which generated this result transmitted reference range : 166 - 358 10*3/ ?L. The reference r pardeep was not used to interpret this result as normal/abnormal . MPV (test code = 10.2 fL 9.5-12.9 57415-2) IPF % (test code = 2.9 % 1.3-7.7 Platelet count 7212521316) measured by fluorescence method. NRBC/100 WBC (test See_Comment [Automat ed code = 0089500980) message] The system which generated this result transmitted reference range : 0.0 - 10.0 /100 WBCs. The refer ence range was not u sed to interpret th is result as normal/abnormal . NRBC x10^3 (test code <0.01 See_Comment [Auto mated = 7781281362) message] The s ystem which generated this result transmitted reference range : 10*3/?L. The reference range was not used to interpret this result as normal/abnormal . GRAN MAT (NEUT) % 73.3 % (test code = 770-8) IMM GRAN % (test code 0.50 % = 6628562988) LYMPH % (test code = 18.6 % 736-9) MONO % (test code = 5.8 % 5905-5) EOS % (test code = 1.4 % 713-8) BASO % (test code = 0.4 % 706-2) GRAN MAT x10^3(ANC) 4.14 10*3/uL 1.88-7.09 (test code = 5974332261) IMM GRAN x10^3 (test 0.03 10*3/uL 0-0.06 code = 8418656118) LYMPH x10^3 (test code 1.05 10*3/uL 1.32-3.29 L = 731-0) MONO x10^3 (test code 0.33 10*3/uL 0.33-0.92 = 742-7) EOS x10^3 (test code = 0.08 10*3/uL 0.03-0.39 711-2) BASO x10^3 (test code <0.03 0.01-0.07 = 704-7) Lab Interpretation Abnormal (test code = 97665-1) [facility] HospitalPROTHROMBIN TIME / [id number] 20:07:00 Test Item Value Reference Range Interpretation [...] tions. Lab Interpretation (test Normal code = 76259-6) [facility] HospitalaPTT2020-03-26 20:06:00 Test Item Value Reference Range Interpretation Comments APTT Patient (test See_Comment [Automat ed code = 3173-2) message] The system which generated this result transmitted reference range : 23 - 38 Seconds . The reference range was not used to interpr et this result as normal/abnormal . NU (test code = NU) The [facility] patient population mean normal value for aPTT is 30 seconds. Lab Interpretation Normal (test code = 85159-2) [facility] HospitalXR ABDOMEN 2 [id number] 19:35:11HISTORY: Generalized abdominal pain and constipation. FINDINGS: 2 abdominal radiographs or obtaininga supine position. Smallamount of retained fecal material and air are detected throughout the largebowel. Cholecystectomy clips are seen in the right upper abdomen. Spleenappears to be enlarged. Mild lumbar dextroscoliosis is noted. No aggressivebone lesions. CONCLUSIONS: No acute findings. [facility], Radi ant Results Inft User - 10/07/2019 2:36 PM CDTHISTORY: Generalized abdominal pain and constipation.FINDINGS: 2 abdominal radiographs or obtaining a supine position. Smallamount of retained fecal material and air are detected throughout the largebowel. Cholecystectomy clips are seen in the right upperabdomen. Spleenappears to be enlarged. Mild lumbar dextroscoliosis is noted. No aggressivebone lesions.CONCLUSIONS: No acute findings.[facility] ABDOMEN [id number] 19:27:48HISTORY: Generalized abdominal pain and constipation. TECHNIQUE: [...] by follow up ultrasound study in6 months. [facility], Radiant Results Inft User [...] monitored by follow up ultrasound study in6 months.[facility] HospitalCORTISOL [id number] 20:14:00 Test Item Value Reference Range Interpretation Comments OLIVIER AM (test code = 6.4 ug/dL 4.5-23 5171243852) NU (test code = NU) Biotin has been reported to cause a positive bias, interpret results relative to patient's use of biotin. Lab Interpretation (test Normal code = 86273-0) [facility] HospitalPROCALCITONIN2020-01-19 18:29:00 Test Item Value Reference Range Interpretation Comments Procalcitonin (test 0.20 ng/mL <0.07 H code = 0050512735) NU (test code = NU) INTERPRETATION OF [...] lung abscess/empyema. For further information please refer to:[email or web address] Lab Interpretation Abnormal (test code = 81483-0) [facility] HospitalBetahydroxy-Rizdccvu9350-32-15 17:55:00 Test Item Value Reference Range Interpretation Comments BOH (test code = 0.1 mmol/L 3371180732) NU (test code = Normal Ranges: ? ? NU) Nonfasting ? Less than 0.1 mmol/L ? ? Overnight Fast ? ? ? Less than 0.4 mmol/L ? ? Fasting (1-2 weeks) ?6-8 mmol/L Test developed and characteristics determined by [facility] Laboratory Services. [facility] HospitalOsmolality [id number] 17:29:00 Test Item Value Reference Range Interpretation Comments OSMOLALITY (test code = See_Comment [Au tomated message] 9246983724) The system [employer] generated this result transmitted ref erence range: 278 - 30 5 mOsm/kg. The re ference range was not u sed to interpret this result as normal/abnor mal. Lab Interpretation (test Normal code = 62380-7) [facility] HospitalPOFL GLUCOSE (AUTOMATED)2019-08-01 14:00:00 Test Item Value Reference Range Interpretation Comments POCT GLU (test code = 4768437486) 161 mg/dL 70-110 H Lab Interpretation (test code = Abnormal 75572-7) [facility] GLUCOSE (AUTOMATED)2019-08-01 11:45:00 Test Item Value Reference Range Interpretation Comments POCT GLU (test code = 6013393221) 105 mg/dL 70-110 Lab Interpretation (test code = Normal 93142-7) [facility] HospitalBASIC METABOLIC PANEL (NA, K, CL, CO2, GLUCOSE, BUN, CREATININE, CA)2019-08-01 10:48:00 Test Item Value Reference Range Interpretation Comments NA (test code = 137 mmol/L 135-145 2661987273) K (test code = 3.9 mmol/L 3.5-5 6860006240) CL (test code = 108 mmol/L 98-108 2341814484) CO2 TOTAL (test code = 23 mmol/L 23-31 9463774409) AGAP (test code = 2-16 7386188590) BUN (test code = 21 mg/dL 7-23 2273283930) GLUCOSE (test code = 119 mg/dL 70-110 H 3858475374) CREATININE (test code = 0.83 mg/dL 0.5-1.04 3889665974) CALCIUM (test code = 8.7 mg/dL 8.6-10.6 8483016543) eGFR Calculation mL/min/1.73m2 (Non-) (test code = 6700070896) eGFR Calculation mL/min/1.73m2 () (test code = 7464653327) NU (test code = NU) Association of [...] tests). Lab Interpretation Abnormal (test code = 67163-0) [facility] GLUCOSE (AUTOMATED)2019-08-01 10:33:00 Test Item Value Reference Range Interpretation Comments POCT GLU (test code = 1569122879) 125 mg/dL 70-110 H Lab Interpretation (test code = Abnormal 63576-7) [facility] GLUCOSE (AUTOMATED)2019-08-01 09:28:00 Test Item Value Reference Range Interpretation Comments POCT GLU (test code = 8545017662) 130 mg/dL 70-110 H Lab Interpretation (test code = Abnormal 51433-6) [facility] HospitalAD,CLC OR LCC ONLY - INFLUENZA A & B DIRECT [id number] 08:59:00 Test Item Value Reference Range Interpretation Comments Influenza A (test code = 71411-7) Negative Negative Influenza B (test code = 16931-5) Negative Negative Lab Interpretation (test code = Normal 93583-2) [facility] GLUCOSE (AUTOMATED)2019-08-01 08:34:00 Test Item Value Reference Range Interpretation Comments POCT GLU (test code = 3658664327) 127 mg/dL 70-110 H Lab Interpretation (test code = Abnormal 89194-4) [facility] GLUCOSE (AUTOMATED)2019-08-01 07:38:00 Test Item Value Reference Range Interpretation Comments POCT GLU (test code = 8340407495) 137 mg/dL 70-110 H Lab Interpretation (test code = Abnormal 14834-0) [facility] GLUCOSE (AUTOMATED)2019-08-01 06:26:00 Test Item Value Reference Range Interpretation Comments POCT GLU (test code = 9088051958) 151 mg/dL 70-110 H Lab Interpretation (test code = Abnormal 54183-4) [facility] METABOLIC PANEL (NA, K, CL, CO2, GLUCOSE, BUN, CREATININE, CA)2019-08-01 06:20:00 Test Item Value Reference Range Interpretation Comments NA (test code = 137 mmol/L 135-145 2984599272) K (test code = 4.6 mmol/L 3.5-5 4554540275) CL (test code = 105 mmol/L 98-108 3500894233) CO2 TOTAL (test code = 23 mmol/L 23-31 5263321390) AGAP (test code = 2-16 6464285255) BUN (test code = 19 mg/dL 7-23 5014651451) GLUCOSE (test code = 205 mg/dL 70-110 H 2272904999) CREATININE (test code = 0.62 mg/dL 0.5-1.04 3428754821) CALCIUM (test code = 9.7 mg/dL 8.6-10.6 1004108312) eGFR Calculation mL/min/1.73m2 (Non-) (test code = 9406296612) eGFR Calculation mL/min/1.73m2 () (test code = 9183387036) NU (test code = NU) Association of [...] tests). Lab Interpretation Abnormal (test code = 13382-7) [facility] HospitalAMMONIA, [id number] 06:14:00 Test Item Value Reference Range Interpretation Comments AMMONIA (test code = 4834964561) 20 umol/L 9-33 Lab Interpretation (test code = Normal 52851-0) [facility] GLUCOSE (AUTOMATED)2019-08-01 05:33:00 Test Item Value Reference Range Interpretation Comments POCT GLU (test code = 4866226642) 170 mg/dL 70-110 H Lab Interpretation (test code = Abnormal 50145-2) [facility] GLUCOSE (AUTOMATED)2019-08-01 04:35:00 Test Item Value Reference Range Interpretation Comments POCT GLU (test code = 1137910169) 339 mg/dL 70-110 H Lab Interpretation (test code = Abnormal 82929-2) [facility] HospitalTHYROID STIMULATING [id number] 04:31:00 Test Item Value Reference Range Interpretation Comments TSH (test code = See_Comment H [Automated message] 2102743005) The system [employer] generated this result transmitted ref erence range: 0.45 - 4 .70 mIU/L. The refe rence range was not u sed to interpret this result as normal/abnor mal. Lab Interpretation (test Abnormal code = 34906-2) [facility] HospitalGlycosylated Hemoglobin (A1C)2019-08-01 04:11:00 Test Item Value Reference [...] Indicated Lab Interpretation Abnormal (test code = 37324-1) [facility] HospitalMagnesium [id number] 03:59:00 Test Item Value Reference Range Interpretation Comments MAGNESIUM (test code = 4456644913) 1.9 mg/dL 1.7-2.4 Lab Interpretation (test code = Normal 66403-9) [facility] HospitalPhosphorus [id number] 03:59:00 Test Item Value Reference Range Interpretation Comments PHOSPHORUS (test code = 6401909320) 4.6 mg/dL 2.5-5 Lab Interpretation (test code = Normal 63706-1) [facility] GLUCOSE (AUTOMATED)2019-08-01 03:56:00 Test Item Value Reference Range Interpretation Comments POCT GLU (test code = 576 mg/dL 70-110 HH 7792391972) NU (test code = NU) Notified Provider Lab Interpretation (test Abnormal code = 10125-4) [facility] GLUCOSE (AUTOMATED)2019-08-01 03:56:00 Test Item Value Reference Range Interpretation Comments POCT GLU (test code = 9753749135) 432 mg/dL 70-110 H Lab Interpretation (test code = Abnormal 24808-7) [facility] HospitalURINALYSIS2020-01-19 03:12:00 Test Item Value Reference Range Interpretation Comments APPEARANCE (test code = Clear Clear 7770160967) COLOR (test code = Straw Yellow A 0782502925) PH (test code = 4.8-8.0 1202282624) SP GRAVITY (test code = 1.003-1.030 3403876846) GLU U QUAL (test code = 500 mg/dL Normal A 6821480491) BLOOD (test code = Negative Negative 7081222909) KETONES (test code = Negative Negative 2226204405) PROTEIN (test code = Negative Negative 2887-8) UROBILIN (test code = Normal Normal 4964703543) BILIRUBIN (test code = Negative Negative 8691401698) NITRITE (test code = Negative Negative 0112514554) LEUK GUADALUPE (test code = Negative Negative 2382681121) RBC/HPF (test code = See_Comment [Autom ated message] 6139775683) The system [employer] generated this result transmit thong reference range : 0 - 3 HPF. The refe rence range was not u sed to interpret th is result as normal/abnormal . WBC/HPF (test code = <1 See_Comment [Autom ated message] 7083543115) The system [employer] generated this result transmit thong reference range : 0 - 5 HPF. The refe rence range was not u sed to interpret th is result as normal/abnormal . BACTERIA (test code = Negative Negative 9806836766) SQ EPITH (test code = <1 HPF 7083045047) Lab Interpretation (test Abnormal code = 81857-6) [facility]. METABOLIC PANEL (18846)2019-08-01 03:10:00 Test Item Value Reference Range Interpretation Comments NA (test code = 133 mmol/L 135-145 L 6446890967) K (test code = 5.4 mmol/L 3.5-5 H 4467224828) CL (test code = 98 mmol/L 98-108 3501789039) CO2 TOTAL (test code = 23 mmol/L 23-31 6258651545) AGAP (test code = 2-16 2827560731) BUN (test code = 19 mg/dL 7-23 1686298445) GLUCOSE (test code = 678 mg/dL 70-110 HH 3004067257) CREATININE (test code = 0.65 mg/dL 0.5-1.04 7534755698) TOTAL BILI (test code = 1.0 mg/dL 0.1-1.9 9795209574) CALCIUM (test code = 9.7 mg/dL 8.6-10.6 0652290715) T PROTEIN (test code = 7.8 g/dL 6.3-8.2 0041322145) ALBUMIN (test code = 3.9 g/dL 3.5-5 2458294678) ALK PHOS (test code = 174 U/L 34-122 H 4128028760) ALTv (test code = 44 U/L 5-35 H 1742-6) AST(SGOT) (test code = 60 U/L 13-40 H 1494753689) eGFR Calculation mL/min/1.73m2 (Non-) (test code = 1138958667) eGFR Calculation mL/min/1.73m2 () (test code = 4389658634) NU (test code = NU) Association of [...] tests). Lab Interpretation Abnormal (test code = 47625-4) [facility] HospitalXR CHEST 1 [id number] 02:59:44Impression: No radiographic evidence for acute cardiopulmonary disease. RL: 460 AF: [id number] Indication: Cough Comparison: None Findings: Single AP view of the chest. The cardiopericardial silhouette iswithin normal limits. The lungs are clear bilaterally. The visualized bonythorax is intact. [facility], Radiant Results Inft User - 07/31/2019 9:00 PM CSTIndication: CoughComparison: NoneFindings: Single AP view of the chest. The cardiopericardial silhouette iswithin normal limits. The lungs are clear bilaterally. The visualized bonythorax is intact.IMPRESSIONImpression:No radiographic evidence for acute cardiopulmonary disease.RL: 460AFC: [id number] signed by Minerva Loyola MD, PhD at 07/31/2019 8:59 PMUnHCA Houston Healthcare WestCBC WITH DIFFERENTIAL 2019-08-01 02:44:00 Test Item Value [...] RDW-SD (test code = 49.8 fL 39-49.9 94717-7) RDW-CV (test code = 15.0 % 12-15.5 788-0) PLT (test code = See_Comment L [Automated 777-3) message] The sy stem which generated this result transmitted reference range : 166 - 358 10*3/ ?L. The reference r pardeep was not used to interpret this result as normal/abnormal . MPV (test code = 10.6 fL 9.5-12.9 21802-9) NRBC/100 WBC (test See_Comment [Automat ed code = 4860435723) message] The system which generated this result transmitted reference range : 0.0 - 10.0 /100 WBCs. The refer ence range was not u sed to interpret th is result as normal/abnormal . NRBC x10^3 (test code <0.01 See_Comment [Auto mated = 9259805093) message] The s ystem which generated this result transmitted reference range : 10*3/?L. The reference range was not used to interpret this result as normal/abnormal . GRAN MAT (NEUT) % 76.7 % (test code = 770-8) IMM GRAN % (test code 0.20 % = 7584004076) LYMPH % (test code = 16.7 % 736-9) MONO % (test code = 5.4 % 5905-5) EOS % (test code = 0.6 % 713-8) BASO % (test code = 0.4 % 706-2) GRAN MAT x10^3(ANC) 3.71 10*3/uL 1.88-7.09 (test code = 6009319291) IMM GRAN x10^3 (test <0.03 0-0.06 code = 7823647467) LYMPH x10^3 (test code 0.81 10*3/uL 1.32-3.29 L = 731-0) MONO x10^3 (test code 0.26 10*3/uL 0.33-0.92 L = 742-7) EOS x10^3 (test code = 0.03 10*3/uL 0.03-0.39 711-2) BASO x10^3 (test code <0.03 0.01-0.07 = 704-7) Lab Interpretation Abnormal (test code = 66261-0) [facility] CARE VENOUS BLOOD [id number] 02:12:00 Test Item Value Reference Range Interpretation Comments PH (test code = 7.32-7.42 2441947558) PCO2 VAELRIANO (test code = See_Comment [Auto mated message] 5798536648) The system [employer] generated this result transmitted ref erence range: 41 - 51 mmHg. The reference r pardeep was not used to interpret this result as normal/abnor mal. PO2 VALERIANO (test code = See_Comment H [Autom ated message] 0867884706) The system [employer] generated this result transmitted ref erence range: 25 - 40 mmHg. The reference r pardeep was not used to interpret this result as normal/abnor mal. HCO3 VALERIANO (test code = See_Comment [Auto mated message] [id number]) The system [employer] generated this result transmitted ref erence range: 24 - 28 mEq/L. The reference r pardeep was not used to interpret this result as normal/abnor mal. AC VBE(BEAKER) (test mEq/L code = [id number]) Lab Interpretation (test Abnormal code = 49103-5) [facility] T[facility]OR [facility] 2018-09-03 16:30:00 Test Item Value Reference Range Interpretation Comments ALPHA-FETOPROTEIN (BEAKER) (test 10.9 ng/mL <10.0 H code = 1094) HEPATIC FUNCTION [id number] 16:13:00 Test Item Value Reference Range Interpretation [...] = 15 U/L 6-55 347) BASIC METABOLIC [id number] 16:13:00 Test Item Value Reference Range Interpretation [...] NOT APPLICABLE FOR DIALYSIS PATIEN TS. PROTHROMBIN TIME/[id number] 16:05:00 Test Item Value Reference Range Interpretation [...] PERCENT (BEAKER) (test code = 2801) Bedside [id number] 11:44:00 Test Item Value Reference Range Interpretation Comments Bedside Glucose (test code = 63227-7) 310 70-120 H Meter ID: [id number] [facility] HospitalCreatine Kinase MB 2017-10-30 19:51:00 Test Item Value Reference Range Interpretation Comments Creatine Kinase MB (test code = 0.80 0-5.0 47287-6) [facility]Troponin [id number] 19:51:00 Test Item Value Reference Range Interpretation Comments Troponin I (test code = ARC6958) -0.001 0-0.300 [facility]oundCreatine [id number] 19:44:00 Test Item Value Reference Range Interpretation Comments Creatine Kinase (test code = 2157-6) 35 29-168 [facility]oundVitamin B12 [id number] 10:03:00 Test Item Value Reference Range Interpretation Comments Vitamin B12 Level (test code = 04199-7) 789 213-816 [facility]oundFolate2018-04-19 10:03:00 Test Item Value Reference Range Interpretation Comments Folate (test code = 2284-8) 8.8 7.0-15.4 [facility]oundThyroid Stimulating Hormone (TSH) 2017-10-30 09:51:00 Test Item Value Reference Range Interpretation Comments Thyroid Stimulating Hormone (TSH) (test 2.053 0.350-4.940 code = 38447-0) [facility]oundBlood Ijtfzru4622-89-42 20:02:00 Test Item Value Reference Range Interpretation Comments Blood Culture (test NO GROWTH AFTER 5 code = 95139027) DAYS, FINAL REPORT [facility] Cdxvytu8181-52-27 20:02:00 Test Item Value Reference Range Interpretation Comments Blood Culture (test NO GROWTH AFTER 5 code = 07305962) DAYS, FINAL REPORT [facility] [id number] 00:57:00 Test Item Value Reference Range Interpretation Comments Sodium Level (test code = 2951-2) 139 136-145 [facility]Potassium [id number] 00:57:00 Test Item Value Reference Range Interpretation Comments Potassium Level (test code = 2823-3) 2.9 3.5-5.1 LL Results called to [CORINE RN/ER] at 0053 on 05/24/17 by Anny Christensen. RB [place]. [facility]oundChloride [id number] 00:57:00 Test Item Value Reference Range Interpretation Comments Chloride Level (test code = 2075-0) 109 98-107 H [facility]oundCarbon Dioxide [id number] 00:57:00 Test Item Value Reference Range Interpretation Comments Carbon Dioxide Level (test code = 20 22-29 L 8-9) [facility] MoundAnion [id number] 00:57:00 Test Item Value Reference Range Interpretation Comments Anion Gap (test code = 28088-8) 12.9 8-16 [facility]oundBlood Urea Bsakgmmi4218-11-20 00:57:00 Test Item Value Reference Range Interpretation Comments Blood Urea Nitrogen (test code = 6 7-26 L 3094-0) [facility]oundCreatinine2017-11-11 00:57:00 Test Item Value Reference Range Interpretation Comments Creatinine (test code = 2160-0) 0.67 0.57-1.11 [facility]oundBUN/Creatinine [id number] 00:57:00 Test Item Value Reference Range Interpretation Comments BUN/Creatinine Ratio (test code = 9 6-25 3097-3) [facility] MoundEstimat Glomerular Filtration Rate 2017-05-24 00:57:00 Test Item Value Reference Range Interpretation Comments Estimat Glomerular Filtration Rate 60- >60 (test code = 26438-5) Ranges were taken from the National Kidney Disease Education Program and the National Kidney Foundation literature.Reference ranges:60 or greater: Yrlyoc04- 59 (for 3 consecutive months): Chronic kidneydisease 15 or less: Kidney failure [facility]oundGlucose Azqdf9229-28-27 00:57:00 Test Item Value Reference Range Interpretation Comments Glucose Level (test code = FQM8700) 272 74-118 H [facility]oundCalcium Iegcw7621-50-99 00:57:00 Test Item Value Reference Range Interpretation Comments Calcium Level (test code = 72948-7) 8.1 8.4-10.2 L [facility]aleodium Kmfus4247-59-88 00:57:00 Test Item Value Reference Range Interpretation Comments Sodium Level (test code = 2951-2) 139 136-145 [facility]oundPotassium Sneae1092-76-07 00:57:00 Test Item Value Reference Range Interpretation Comments Potassium Level (test code = 2823-3) 2.9 3.5-5.1 LL Results called to [CORINE RN/ER] at 0053 on 05/24/17 by Anny Christensen. RB [place]. [facility]oundChloride Rpgtt7423-28-93 00:57:00 Test Item Value Reference Range Interpretation Comments Chloride Level (test code = 2075-0) 109 98-107 H [facility]oundCarbon Dioxide Jgzlk1497-17-45 00:57:00 Test Item Value Reference Range Interpretation Comments Carbon Dioxide Level (test code = 20 22-29 L 2028-03) [facility]oundAnion [id number] 00:57:00 Test Item Value Reference Range Interpretation Comments Anion Gap (test code = 22555-9) 12.9 8-16 [facility]oundBlood Urea Bnutgbge3562-94-33 00:57:00 Test Item Value Reference Range Interpretation Comments Blood Urea Nitrogen (test code = 6 7-26 L 3094-0) [facility]oundCreatinine2017-11-11 00:57:00 Test Item Value Reference Range Interpretation Comments Creatinine (test code = 2160-0) 0.67 0.57-1.11 [facility]oundBUN/Creatinine Ziljr2030-53-31 00:57:00 Test Item Value Reference Range Interpretation Comments BUN/Creatinine Ratio (test code = 9 6 3097-3) [facility]oundEstimat Glomerular Filtration Rate 2017-05-24 00:57:00 Test Item Value Reference Range Interpretation Comments Estimat Glomerular Filtration Rate 60- >60 (test code = 95805-3) Ranges were taken from the National Kidney Disease Education Program and the National Kidney Foundation literature.Reference ranges:60 or greater: Gkhheq91- 59 (for 3 consecutive months): Chronic kidneydisease 15 or less: Kidney failure [facility]oundGlucose Ubmih8870-14-97 00:57:00 Test Item Value Reference Range Interpretation Comments Glucose Level (test code = ADP3751) 272 74-118 H [facility]oundCalcium Egjmv9067-16-01 00:57:00 Test Item Value Reference Range Interpretation Comments Calcium Level (test code = 97785-0) 8.1 8.4-10.2 L [facility]oundTotal Xgojaoeri7673-58-05 21:06:00 Test Item Value Reference Range Interpretation Comments Total Bilirubin (test code = 1975-2) 0.6 0.2-1.2 [facility]oundAspartate Amino Transf (AST/SGOT) 2017-05-23 21:06:00 Test Item Value Reference Range Interpretation Comments Aspartate Amino Transf (AST/SGOT) (test 50 5-34 H code = Aspartate Amino Transf (AST/SGOT)) [facility]oundAlanine Aminotransferase (ALT/SGPT) 2017-05-23 21:06:00 Test Item Value Reference Range Interpretation Comments Alanine Aminotransferase (ALT/SGPT) 46 0-55 (test code = 1742-6) [facility]oundTotal [id number] 21:06:00 Test Item Value Reference Range Interpretation Comments Total Protein (test code = 2885-2) 7.3 6.5-8.1 [facility]oundAlbumin2017-11-10 21:06:00 Test Item Value Reference Range Interpretation Comments Albumin (test code = 1751-7) 3.1 3.5-5.0 L [facility]oundGlobulin2017-11-10 21:06:00 Test Item Value Reference Range Interpretation Comments Globulin (test code = 57516-8) 4.2 2.3-3.5 H [facility]oundAlbumin/Globulin Afrnb7019-15-26 21:06:00 Test Item Value Reference Range Interpretation Comments Albumin/Globulin Ratio (test code = 0.7 0.8-2.0 L 1759-0) [facility]oundAlkaline Cgqkuhmlwan4528-82-45 21:06:00 Test Item Value Reference Range Interpretation Comments Alkaline Phosphatase (test code = 196 40-150 H 6768-6) [facility]oundTotal Vrvencvrc3372-46-92 21:06:00 Test Item Value Reference Range Interpretation Comments Total Bilirubin (test code = 1975-2) 0.6 0.2-1.2 [facility]oundAspartate Amino Transf (AST/SGOT) 2017-05-23 21:06:00 Test Item Value Reference Range Interpretation Comments Aspartate Amino Transf (AST/SGOT) (test 50 5-34 H code = Aspartate Amino Transf (AST/SGOT)) [facility]oundAlanine Aminotransferase (ALT/SGPT) 2017-05-23 21:06:00 Test Item Value Reference Range Interpretation Comments Alanine Aminotransferase (ALT/SGPT) 46 0-55 (test code = 1742-6) [facility]oundTotal Hyzxpid9459-85-70 21:06:00 Test Item Value Reference Range Interpretation Comments Total Protein (test code = 2885-2) 7.3 6.5-8.1 [facility]oundAlbumin2017-11-10 21:06:00 Test Item Value Reference Range Interpretation Comments Albumin (test code = 1751-7) 3.1 3.5-5.0 L [facility]oundGlobulin2017-11-10 21:06:00 Test Item Value Reference Range Interpretation Comments Globulin (test code = 92004-3) 4.2 2.3-3.5 H [facility]oundAlbumin/Globulin [id number] 21:06:00 Test Item Value Reference Range Interpretation Comments Albumin/Globulin Ratio (test code = 0.7 0.8-2.0 L 1759-0) [facility]oundAlkaline Ceflqinvyjj6220-39-35 21:06:00 Test Item Value Reference Range Interpretation Comments Alkaline Phosphatase (test code = 196 40-150 H 6768-6) [facility]oundWhite Blood Lfmmb4843-48-05 20:53:00 Test Item Value Reference Range Interpretation Comments White Blood Count (test code = 6690-2) 6.48 4.8-10.8 [facility]oundRed Blood Nourw8023-45-15 20:53:00 Test Item Value Reference Range Interpretation Comments Red Blood Count (test code = 789-8) 4.15 3.6-5.1 [facility]oundHemoglobin2017-11-10 20:53:00 Test Item Value Reference Range Interpretation Comments Hemoglobin (test code = 07394-2) 12.4 12.0-16.0 [facility]oundHematocrit2017-11-10 20:53:00 Test Item Value Reference Range Interpretation Comments Hematocrit (test code = 4544-3) 36.8 34.2-44.1 [facility]oundMean Corpuscular Ktsiya7916-17-27 20:53:00 Test Item Value Reference Range Interpretation Comments Mean Corpuscular Volume (test code = 88.7 81-99 787-2) [facility]oundMean Corpuscular Gzgmqficvr0033-87-78 20:53:00 Test Item Value Reference Range Interpretation Comments Mean Corpuscular Hemoglobin (test code 29.9 28-32 = 785-6) [facility]oundMean Corpuscular Hemoglobin Concent 2017-05-23 20:53:00 Test Item Value Reference Range Interpretation Comments Mean Corpuscular Hemoglobin Concent 33.7 31-35 (test code = 786-4) [facility]oundRed Cell Distribution Riimt0772-97-16 20:53:00 Test Item Value Reference Range Interpretation Comments Red Cell Distribution Width (test code 14.0 11.7-14.4 = 30642-5) [facility] MoundPlatelet Lqpev9231-79-92 20:53:00 Test Item Value Reference Range Interpretation Comments Platelet Count (test code = 777-3) 54 140-360 L [facility]oundNeutrophils (%) (Auto)2017-05-23 20:53:00 Test Item Value Reference Range Interpretation Comments Neutrophils (%) (Auto) (test code = 72.3 38.7-80.0 75981-7) [facility]oundLymphocytes (%) (Auto)2017-05-23 20:53:00 Test Item Value Reference Range Interpretation Comments Lymphocytes (%) (Auto) (test code = 21.1 18.0-39.1 736-9) [facility]oundMonocytes (%) (Auto)2017-05-23 20:53:00 Test Item Value Reference Range Interpretation Comments Monocytes (%) (Auto) (test code = 5.1 4.4-11.3 5905-5) [facility]oundEosinophils (%) (Auto)2017-05-23 20:53:00 Test Item Value Reference Range Interpretation Comments Eosinophils (%) (Auto) (test code = 0.9 0.0-6.0 713-8) [facility]oundBasophils (%) (Auto)2017-05-23 20:53:00 Test Item Value Reference Range Interpretation Comments Basophils (%) (Auto) (test code = 0.3 0.0-1.0 706-2) [facility] MoundIM GRANULOCYTES %2017-05-23 20:53:00 Test Item Value Reference Range Interpretation Comments IM GRANULOCYTES % (test code = IM 0.3 0.0-1.0 GRANULOCYTES %) [facility]oundNeutrophils # (Auto)2017-05-23 20:53:00 Test Item Value Reference Range Interpretation Comments Neutrophils # (Auto) (test code = 4.7 2.1-6.9 751-8) [facility]oundLymphocytes # (Auto)2017-05-23 20:53:00 Test Item Value Reference Range Interpretation Comments Lymphocytes # (Auto) (test code = 1.4 1.0-3.2 22110-4) [facility]oundMonocytes # (Auto)2017-05-23 20:53:00 Test Item Value Reference Range Interpretation Comments Monocytes # (Auto) (test code = 742-7) 0.3 0.2-0.8 [facility]oundEosinophils # (Auto)2017-05-23 20:53:00 Test Item Value Reference Range Interpretation Comments Eosinophils # (Auto) (test code = 0.1 0.0-0.4 711-2) [facility]oundBasophils # (Auto)2017-05-23 20:53:00 Test Item Value Reference Range Interpretation Comments Basophils # (Auto) (test code = 704-7) 0.0 0.0-0.1 [facility]oundAbsolute Immature Granulocyte (auto 2017-05-23 20:53:00 Test Item Value Reference Range Interpretation Comments Absolute Immature Granulocyte (auto 0.02 0-0.1 (test code = Absolute Immature Granulocyte (auto) [facility]oundWhite Blood [id number] 20:53:00 Test Item Value Reference Range Interpretation Comments White Blood Count (test code = 6690-2) 6.48 4.8-10.8 [facility]oundRed Blood [id number] 20:53:00 Test Item Value Reference Range Interpretation Comments Red Blood Count (test code = 789-8) 4.15 3.6-5.1 [facility]oundHemoglobin2017-11-10 20:53:00 Test Item Value Reference Range Interpretation Comments Hemoglobin (test code = 37778-1) 12.4 12.0-16.0 [facility]oundHematocrit2017-11-10 20:53:00 Test Item Value Reference Range Interpretation Comments Hematocrit (test code = 4544-3) 36.8 34.2-44.1 [facility]oundMean Corpuscular Jdoaqb8536-49-09 20:53:00 Test Item Value Reference Range Interpretation Comments Mean Corpuscular Volume (test code = 88.7 81-99 787-2) [facility]oundMean Corpuscular Vuhzfbmozz6812-10-04 20:53:00 Test Item Value Reference Range Interpretation Comments Mean Corpuscular Hemoglobin (test code 29.9 28-32 = 785-6) [facility]oundMean Corpuscular Hemoglobin Concent 2017-05-23 20:53:00 Test Item Value Reference Range Interpretation Comments Mean Corpuscular Hemoglobin Concent 33.7 31-35 (test code = 786-4) [facility]oundRed Cell Distribution [id number] 20:53:00 Test Item Value Reference Range Interpretation Comments Red Cell Distribution Width (test code 14.0 11.7-14.4 = 79278-2) [facility] MoundPlatelet Tfaie1924-64-16 20:53:00 Test Item Value Reference Range Interpretation Comments Platelet Count (test code = 777-3) 54 140-360 L [facility]oundNeutrophils (%) (Auto)2017-05-23 20:53:00 Test Item Value Reference Range Interpretation Comments Neutrophils (%) (Auto) (test code = 72.3 38.7-80.0 77582-4) [facility]oundLymphocytes (%) (Auto)2017-05-23 20:53:00 Test Item Value Reference Range Interpretation Comments Lymphocytes (%) (Auto) (test code = 21.1 18.0-39.1 736-9) [facility]oundMonocytes (%) (Auto)2017-05-23 20:53:00 Test Item Value Reference Range Interpretation Comments Monocytes (%) (Auto) (test code = 5.1 4.4-11.3 5905-5) [facility]oundEosinophils (%) (Auto)2017-05-23 20:53:00 Test Item Value Reference Range Interpretation Comments Eosinophils (%) (Auto) (test code = 0.9 0.0-6.0 713-8) [facility]oundBasophils (%) (Auto)2017-05-23 20:53:00 Test Item Value Reference Range Interpretation Comments Basophils (%) (Auto) (test code = 0.3 0.0-1.0 706-2) [facility]oundIM GRANULOCYTES %2017-05-23 20:53:00 Test Item Value Reference Range Interpretation Comments IM GRANULOCYTES % (test code = IM 0.3 0.0-1.0 GRANULOCYTES %) [facility]oundNeutrophils # (Auto)2017-05-23 20:53:00 Test Item Value Reference Range Interpretation Comments Neutrophils # (Auto) (test code = 4.7 2.1-6.9 751-8) [facility]oundLymphocytes # (Auto)2017-05-23 20:53:00 Test Item Value Reference Range Interpretation Comments Lymphocytes # (Auto) (test code = 1.4 1.0-3.2 90825-2) [facility]oundMonocytes # (Auto)2017-05-23 20:53:00 Test Item Value Reference Range Interpretation Comments Monocytes # (Auto) (test code = 742-7) 0.3 0.2-0.8 [facility]oundEosinophils # (Auto)2017-05-23 20:53:00 Test Item Value Reference Range Interpretation Comments Eosinophils # (Auto) (test code = 0.1 0.0-0.4 711-2) [facility]Basophils # (Auto)2017-05-23 20:53:00 Test Item Value Reference Range Interpretation Comments Basophils # (Auto) (test code = 704-7) 0.0 0.0-0.1 [facility]oundAbsolute Immature Granulocyte (auto 2017-05-23 20:53:00 Test Item Value Reference Range Interpretation Comments Absolute Immature Granulocyte (auto 0.02 0-0.1 (test code = Absolute Immature Granulocyte (auto) [facility]oundBedside Tifvzca8418-47-81 02:22:00 Test Item Value Reference Range Interpretation Comments Bedside Glucose (test code = 47993-3) 337 70-120 H Meter ID: [id number] Health [facility]oundCreatine Kinase MB 2017-05-19 20:46:00 Test Item Value Reference Range Interpretation Comments Creatine Kinase MB (test code = 2.30 0.00-5.00 81058-3) [facility]oundTroponin [id number] 20:46:00 Test Item Value Reference Range Interpretation Comments Troponin I (test code = OEV1137) 0.007 0-0.300 [facility]oundMagnesium Mpxcp6790-17-25 20:42:00 Test Item Value Reference Range Interpretation Comments Magnesium Level (test code = 19356-1) 1.7 1.3-2.1 [facility]oundCreatine Jhupji1500-09-64 20:42:00 Test Item Value Reference Range Interpretation Comments Creatine Kinase (test code = 2157-6) 81 29-168 [facility]oundMagnesium Chbff1425-16-14 20:42:00 Test Item Value Reference Range Interpretation Comments Magnesium Level (test code = 69534-0) 1.7 1.3-2.1 [facility]oundProthrombin [id number] 20:34:00 Test Item Value Reference Range Interpretation Comments Prothrombin Time (test code = 5902-2) 12.9 11.9-14.5 [facility]oundProthromb Time International Ratio 2017-05-19 20:34:00 Test Item Value Reference Range Interpretation Comments Prothromb Time International Ratio 0.93 (test code = 6301-6) Oral Anticoagulant Therapy INR Values:1. Low Intensity Therapy 1.5 - 2.02. Moderate IntensityTherapy 2.0 - 3.03. High Intensity Therapy(1) 2.5 - 3.54. High Intensity Therapy(2) 3.0 - 4.05. Panic Value INR > 5.0[facility] MoundActivated Partial Thromboplast Time 2017-05-19 20:34:00 Test Item Value Reference Range Interpretation Comments Activated Partial Thromboplast Time 27.5 23.8-35.5 (test code = 62772-7) [facility]oundProthrombin [id number] 20:34:00 Test Item Value Reference Range Interpretation Comments Prothrombin Time (test code = 5902-2) 12.9 11.9-14.5 [facility]oundProthromb Time International Ratio 2017-05-19 20:34:00 Test Item Value Reference Range Interpretation Comments Prothromb Time International Ratio 0.93 (test code = 6301-6) Oral Anticoagulant Therapy INR Values:1. Low Intensity Therapy 1.5 - 2.02. Moderate IntensityTherapy 2.0 - 3.03. High Intensity Therapy(1) 2.5 - 3.54. High Intensity Therapy(2) 3.0 - 4.05. Panic Value INR > 5.0[facility]oundActivated Partial Thromboplast Time 2017-05-19 20:34:00 Test Item Value Reference Range Interpretation Comments Activated Partial Thromboplast Time 27.5 23.8-35.5 (test code = 98694-7) [facility]oundUrine [id number] 20:13:00 Test Item Value Reference Range Interpretation Comments Urine WBC (test code = 5821-4) 0-5 0-5 [facility]oundUrine [id number] 20:13:00 Test Item Value Reference Range Interpretation Comments Urine RBC (test code = 58276-9) NONE 0-5 [facility]oundUrine Ukgbbkhv4585-33-43 20:13:00 Test Item Value Reference Range Interpretation Comments Urine Bacteria (test code = 48021-9) FEW NONE [facility]oundUrine Epithelial [id number] 20:13:00 Test Item Value Reference Range Interpretation Comments Urine Epithelial Cells (test code = FEW NONE 78576-2) [facility]oundUrine [id number] 20:13:00 Test Item Value Reference Range Interpretation Comments Urine WBC (test code = 5821-4) 0-5 0-5 [facility]oundUrine [id number] 20:13:00 Test Item Value Reference Range Interpretation Comments Urine RBC (test code = 02900-2) NONE 0-5 [facility]oundUrine Euqgxcic0047-95-89 20:13:00 Test Item Value Reference Range Interpretation Comments Urine Bacteria (test code = 07118-4) FEW NONE [facility]oundUrine Epithelial [id number] 20:13:00 Test Item Value Reference Range Interpretation Comments Urine Epithelial Cells (test code = FEW NONE 36607-1) [facility]oundUrine Dcbcp3804-11-01 19:42:00 Test Item Value Reference Range Interpretation Comments Urine Color (test code = 5778-6) STRAW YELLOW [facility]oundUrine [id number] 19:42:00 Test Item Value Reference Range Interpretation Comments Urine Clarity (test code = 93380-3) CLEAR CLEAR [facility]oundUrine Specific [id number] 19:42:00 Test Item Value Reference Range Interpretation Comments Urine Specific [place] (test code = 1.005 1.010-1.025 L 5811-5) [facility] [id number] 19:42:00 Test Item Value Reference Range Interpretation Comments Urine pH (test code = 37546-1) 7 5-7 [facility] Leukocyte [id number] 19:42:00 Test Item Value Reference Range Interpretation Comments Urine Leukocyte Esterase (test code NEGATIVE NEGATIVE = 5799-2) [facility] [id number] 19:42:00 Test Item Value Reference Range Interpretation Comments Urine Nitrite (test code = 16946-7) NEGATIVE NEGATIVE [facility] [id number] 19:42:00 Test Item Value Reference Range Interpretation Comments Urine Protein (test code = 5804-0) NEGATIVE NEGATIVE [facility] Glucose (UA)2017-05-19 19:42:00 Test Item Value Reference Range Interpretation Comments Urine Glucose (UA) (test code = 2349-9) 3+ NEGATIVE H [facility] [id number] 19:42:00 Test Item Value Reference Range Interpretation Comments Urine Ketones (test code = 55139-4) NEGATIVE NEGATIVE [facility] Bcqqgfdqtozt9040-93-51 19:42:00 Test Item Value Reference Range Interpretation Comments Urine Urobilinogen (test code = 1 0.2-1 11638-0) [facility] [id number] 19:42:00 Test Item Value Reference Range Interpretation Comments Urine Bilirubin (test code = 1978-6) NEGATIVE NEGATIVE [facility] [id number] 19:42:00 Test Item Value Reference Range Interpretation Comments Urine Blood (test code = 62213-1) NEGATIVE NEGATIVE [facility] [id number] 19:42:00 Test Item Value Reference Range Interpretation Comments Urine Color (test code = 5778-6) STRAW YELLOW [facility] [id number] 19:42:00 Test Item Value Reference Range Interpretation Comments Urine Clarity (test code = 88308-4) CLEAR CLEAR [facility] Specific [id number] 19:42:00 Test Item Value Reference Range Interpretation Comments Urine Specific [place] (test code = 1.005 1.010-1.025 L 5811-5) [facility] [id number] 19:42:00 Test Item Value Reference Range Interpretation Comments Urine pH (test code = 93172-8) 7 5-7 [facility] Leukocyte [id number] 19:42:00 Test Item Value Reference Range Interpretation Comments Urine Leukocyte Esterase (test code NEGATIVE NEGATIVE = 5799-2) [facility] [id number] 19:42:00 Test Item Value Reference Range Interpretation Comments Urine Nitrite (test code = 09159-6) NEGATIVE NEGATIVE [facility] [id number] 19:42:00 Test Item Value Reference Range Interpretation Comments Urine Protein (test code = 5804-0) NEGATIVE NEGATIVE [facility] Glucose (UA)2017-05-19 19:42:00 Test Item Value Reference Range Interpretation Comments Urine Glucose (UA) (test code = 2349-9) 3+ NEGATIVE H [facility] Dszvgxa5503-05-21 19:42:00 Test Item Value Reference Range Interpretation Comments Urine Ketones (test code = 13284-7) NEGATIVE NEGATIVE [facility] Joctckxwdqen4424-96-66 19:42:00 Test Item Value Reference Range Interpretation Comments Urine Urobilinogen (test code = 1 0.2-1 67208-0) [facility] Ducpqraod9156-07-31 19:42:00 Test Item Value Reference Range Interpretation Comments Urine Bilirubin (test code = 1978-6) NEGATIVE NEGATIVE [facility] [id number] 19:42:00 Test Item Value Reference Range Interpretation Comments Urine Blood (test code = 88133-7) NEGATIVE NEGATIVE [facility]ound[facility]ylase [id number] 02:32:00 Test Item Value Reference Range Interpretation Comments Amylase Level (test code = 1798-8) 49 25-125 [facility]2017-10-06 02:32:00 Test Item Value Reference Range Interpretation Comments Lipase (test code = 3040-3) 51 8-78 [facility] [id number] 02:32:00 Test Item Value Reference Range Interpretation Comments Amylase Level (test code = 1798-8) 49 25-125 [facility]2017-10-06 02:32:00 Test Item Value Reference Range Interpretation Comments Lipase (test code = 3040-3) 51 8-78 [facility] Oqkutzqf1585-79-12 17:00:00 Test Item Value Reference Range Interpretation Comments Platelet Estimate (test SLIGHTLY DECREASED code = 40068-7) [facility] Morphology [id number] 17:00:00 Test Item Value Reference Range Interpretation Comments Platelet Morphology Comment (test FEW LARGE code = 58643-7) No platelet clumps seen on smearTexas [facility]oundRed Cell Morphology [id number] 17:00:00 Test Item Value Reference Range Interpretation Comments Red Cell Morphology Comment (test code NORMAL = 6742-1) [facility] [id number] 17:00:00 Test Item Value Reference Range Interpretation Comments Platelet Estimate (test SLIGHTLY DECREASED code = 90382-3) [facility] Morphology [id number] 17:00:00 Test Item Value Reference Range Interpretation Comments Platelet Morphology Comment (test FEW LARGE code = 15614-7) No platelet clumps seen on smearTexas [facility]oundRed Cell Morphology [id number] 17:00:00 Test Item Value Reference Range Interpretation Comments Red Cell Morphology Comment (test code NORMAL = 6742-1) [facility] Hyaline [id number] 14:57:00 Test Item Value Reference Range Interpretation Comments Urine Hyaline Casts (test code = 2-5 0-1 H 52826-9) [facility] [id number] 14:57:00 Test Item Value Reference Range Interpretation Comments Urine Yeast (test code = 22956-7) FEW NONE H [facility] Hyaline [id number] 14:57:00 Test Item Value Reference Range Interpretation Comments Urine Hyaline Casts (test code = 2-5 0-1 H 62714-2) [facility] Msfnt6320-03-26 14:57:00 Test Item Value Reference Range Interpretation Comments Urine Yeast (test code = 52253-0) FEW NONE H [facility] Tread[facility] ONLY [place] [address] Patient Name : GERA PALUMBO MR #: [id number] : 1960 Age/Sex: 57/F Adm Physician : ACACIA KUMAR MD Admit Date : 10/30/17 Location : [facility] Room/Bed : [place] [address] REPORT: Cardiology Report DATE OF STUDY: October [...] function, calculated ejection fraction 54%. Job#: [id number] GH cc: ACACIA KUMAR MD Signature Date Dictated By: VANNESA ANTON MD Transcribed By: EDS on 10/31/17 <Electronically signed by VANNESA ANTON MD><<Signature on File>>11/02/17 6077 COPY TO:CT CHEST WO [place] [address] Patient Name: GERA PALUMBO MR #: [id number] : 1960 Age/Sex: 57/F Req #: [id number] [facility] Physician: ACACIA KUMAR MD Ordered by: ACACIA KUMAR MD Report #: [id number] Location: [facility] Room/Bed: [place] [address] Procedure: [id number] CT/CT CHEST WO Exam Date: 10/30/17 Exam [...] TO: ACACIA KUMAR ACUTE SERIES W/PA CXR [place] [address] Patient Name: GERA PALUMBO MR #: [id number] : 1960 Age/Sex: 56/F Req #: [id number] Adm Physician: Ordered by: JEF CAMPOS MD Report #: [id number] Location: ER Room/Bed: Procedure: [id number] DX/ABDOMEN ACUTE SERIES W/PA CXR Exam Date: [...]
[2021-07-10 11:31] LABS: Arterial Blood Carboxyhemoglob 5.3 % (0-1.5); Blood Gas Oxyhemoglobin 75.7 % (94-97); Blood O2 Saturation 81.1 % (92-98.5)
--- NOTE | 2021-07-10 11:33 | RAD REPORT ---
EXAM DESCRIPTION: RAD - Chest Single View - 07/10/2021 11:22 am CLINICAL HISTORY: Lethargy Chest pain. COMPARISON: Chest Single View dated 06/02/2021; Chest Single View dated 01/25/2020; Chest Single View dated 01/31/2019; Chest Single View dated 04/08/2018 FINDINGS: Portable technique limits examination quality. Mild to moderate bilateral pulmonary opacities are present, greater on the left favoring pneumonia or less likely pulmonary edema. The heart is mildly prominent. No displaced fractures.
--- NOTE | 2021-07-10 11:35 | RAD REPORT ---
EXAM DESCRIPTION: CT - Head Brain Wo Cont - 07/10/2021 11:20 am CLINICAL HISTORY: CONFUSED Headache, drowsiness, lethargy COMPARISON: Head Brain Wo Cont dated 01/31/2019; HEAD BRAIN W O CONTRAST dated 08/16/2014 TECHNIQUE: All CT scans are performed using dose optimization technique as appropriate and may inclu de automated exposure control or mA/KV adjustment according to patient size. FINDINGS: No intracranial hemorrhage, hydrocephalus or extra-axial fluid collection.Mild brain atrop hy with mild periventricular and deep white matter chronic microvascular ischemic changes.No midline shift is evident. Gliosis is seen in the left temporal region compatible with old infarction. The paranasal sinuses and mastoids are clear. The calvarium is intact. Small subcutaneous soft tissue lesion is seen along the left scalp measuring 14 x 7 mm. IMPRESSION: No acute intracranial abnormality. 14 x 7 mm soft tissue subcutaneous left-sided scalp lesion. Recommend direct physical exam correlatio n in this region.
[2021-07-10 11:36] LABS: Protime INR 1.25
[2021-07-10 11:41] LABS: Absolute Lymphocytes (CBC) 0.5 K/uL (0.7-4.9); Hematocrit 24.3 % (36.0-45.0); Lymphocytes % 15.8 % (15.3-44.8); MPV 6.7 fL (7.6-11.3); RBC Red Blood Cell Count 2.58 M/uL (3.86-4.86)
[2021-07-10 11:53] LABS: Albumin 2.1 g/dL (3.4-5.0); Bilirubin Direct 0.4 mg/dL (0-0.2); Bilirubin Total 0.8 mg/dL (0.2-1.0); Potassium 4.6 mmol/L (3.5-5.1); Protein, Total 7.1 g/dL (6.4-8.2); Troponin (Emerg Dept Use Only) 0.04 ng/mL (0.0-0.045)
[2021-07-10 12:20] LABS: Urine Specific Gravity/Preg 1.025 (1.005-1.030)
[2021-07-10 12:41] LABS: Blood Morphology Comment NOT SEEN (NOT SEEN); Platelet Estimate DECR; White Blood Cell Scan OK (OK)
[2021-07-10 13:06] LABS: Urine Blood 2+ (Negative); Urine Glucose Trace (Negative); Urine Protein 2+ (Negative); Urine Specific Gravity >=1.030 (1.005-1.030)
[2021-07-10 13:30] LABS: Urine Bacteria 20-50 /HPF (<20); Urine RBC NONE SEEN /HPF (NONE SEEN)
[2021-07-10] MEDS ORDERED: NA CHLORIDE 0.9% 100 ML ONE (14:53)
[2021-07-10] MEDS ORDERED: CEFTRIAXONE 1000 MG/VIAL ONE (14:53)
--- NOTE | 2021-07-10 15:08 | RAD REPORT ---
EXAM DESCRIPTION: CT - Abdomen Pelvis Wo Contrast - 07/10/2021 2:50 pm CLINICAL HISTORY: ABD PAIN COMPARISON: Abdomen Pelvis Wo Contrast dated 10/12/2018; Abdomen Pelvis W Contrast dated 07/31/2018 TECHNIQUE: Axial [address] imaging of the abdomen and pelvis was performed without IV contrast. No IV contrast was given because of allergy, abnormal renal function, patient refusal or physician re quest. No oral contrast administered. All CT scans are performed using dose optimization technique as appropriate and may include automated exposure control or mA/KV adjustment according to patient size. FINDINGS: No suspicious findings in the lung bases. Advanced liver cirrhosis changes are present within generalized heterogeneity of the liver parenchyma . Approximately 5 x 2.5 centimeter area of decreased attenuation in the inferior right lobe is simila r or smaller in size than on prior imaging. Full evaluation of the liver is limited in the absence of contrast. No gross evidence for a progressive liver finding. Splenomegaly is again noted not clearly different from prior imaging. No acute pancreatic process see n. Gallbladder is absent. No biliary tree dilatation. No hydronephrosis or suspicious renal mass. Small lateral upper pole right renal cyst not clearly dif ferent from prior imaging. No significant adrenal finding. Isodense renal masses and pyelonephritis c annot be excluded in the absence of IV contrast. Urinary bladder is contracted around a Gallagher cathete r. Uterus is absent. Ovaries are absent or atrophic. No significant or worrisome adnexal finding. No gastric dilatation or gastric wall thickening. Large and small bowel loops are not dilated. Modera te stool volume is present in the colon. Sigmoid is quite tortuous and redundant. No free air or pneumatosis. Minimal amount of free intraperitoneal fluid is present. Abdominal wall postsurgical changes are present. Calcifications are present in the deep subcutaneous fatty tissues a nd rectus abdominis musculature left-side umbilical level. There is congestion and edema of the subcu taneous fat of the anterior abdomen that is more pronounced than seen previously. No drainable fluid collection, air or other emergent finding in the soft tissues. No suspicious bony findings. IMPRESSION: Non-contrast enhanced CT abdomen and pelvis imaging show no acute or emergent finding. Chronic postsurgical or post trauma changes to the anterior abdominal wall, asymmetrically prominent to the left. Patient does have more congestion or edema of the subcutaneous fatty tissues compared to prior imaging. No drainable fluid collection, air or other acute or emergent soft tissue finding. Advanced cirrhotic liver changes with splenomegaly not clearly different from comparison. Liver paren chymal assessment is limited in the absence of contrast. Full assessment is limited is the absence of IV contrast.
[2021-07-10] MEDS ORDERED: ACETAMINOPHEN 500 MG TAB PO PRN (16:22)
[2021-07-10] MEDS ORDERED: ONDANSETRON 4 MG/2 ML VIAL IV PRN (16:22)
--- NOTE | 2021-07-10 16:22 | P.HP ---
Certification for Inpatient Patient admitted to: Observation With expected LOS: <2 Midnights Patient will require the following post-hospital care: None Practitioner: I am a practitioner with admitting privileges, knowledge of patient current condition, hospital course, and medical plan of care. 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 Patient mentation worsened overnight according to the mother. Patient was seen at [facility] recently for similar symptoms. Allergies acetaminophen [From Darvocet-N 100] Allergy (Verified 07/13/20 17:06) Unknown azithromycin [From Zithromax Z-Darío] Allergy (Verified 07/13/20 17:06) Unknown propoxyphene napsylate [From Darvocet-N 100] Allergy (Verified 07/13/20 17:06) Unknown tramadol Allergy (Verified 07/13/20 17:06) Unknown tramadol HCl [From Ultram] Allergy (Verified 07/13/20 17:06) Unknown Erythromycin Allergy (Mild, Uncoded 07/13/20 17:07) Rash Home Medications: Carvedilol [Coreg] 12.5 mg PO BID 07/21/20 Divalproex Sodium [Depakote] 500 mg PO BID 07/21/20 Furosemide [Lasix] 40 mg PO DAILY 07/21/20 Gabapentin 300 mg PO BID 07/21/20 Insulin Degludec [Tresiba Flextouch U-200] 50 unit SQ DAILY 07/21/20 Insulin Lispro [Humalog*] 10 unit SQ TIDWM 07/21/20 Levothyroxine [Synthroid] 75 mcg PO [id number] 07/21/20 Quetiapine [Seroquel] 300 mg PO BEDTIME 07/21/20 Sacubitril/Valsartan [Entresto 49 mg-51 mg Tablet] 1 tab PO BID 07/21/20 - Past Medical/Surgical History Diabetic: Yes -: Cirrohsis, hep C, hepatic carcinoma -: Lymphedema -: Diabetes mellitus type 2 -: Glaucoma -: Hypothyroidism -: COPD -: Anxiety -: Chronic systolic congestive heart failure -: Cholecystectomy -: -: Left mastectomy -: Appendectomy -: Hysterectomy Psychosocial/ Personal History: Patient lives at home, alone - Family History Father Medical History: Other (see notes) Notes: 86 y/o healthy man Mother Medical History: Other (see notes) Notes: 76 healthy woman - Social History Alcohol use: No CD- Drugs: No Caffeine use: No Physical Examination - Studies Laboratory Data (last 24 hrs) 07/10/21 11:15: PT 14.4 H, INR 1.25, APTT 29.4 07/10/21 11:15: WBC 2.90 L, Hgb 7.9 L, Hct 24.3 L, Plt Count 24 L* 07/10/21 11:15: Sodium 138, Potassium 4.6, BUN 44 H, Creatinine 1.89 H, Glucose 200 H, Total Bilirubin 0.8, AST 128 H, ALT 44, Alkaline Phosphatase 77, Amylase 113, Lipase 97 Assessment & Plan - Problems (Diagnosis) (1) AMS (altered mental status) Status: Acute (2) Polysubstance (including opioids) dependence, daily use Status: Acute (3) Cirrhosis Status: Acute Qualifiers: Hepatic cirrhosis type: unspecified hepatic cirrhosis Ascites presence: with ascites Qualified Code(s): K74.60 - Unspecified cirrhosis of liver; R18.8 - Other ascites (4) COPD (chronic obstructive pulmonary disease) Status: Chronic Qualifiers: COPD type: chronic bronchitis Chronic bronchitis type: mixed simple and mucopurulent Qualified Code(s): J41.8 - Mixed simple and mucopurulent chronic bronchitis (5) Diabetes mellitus Status: Chronic Qualifiers: Diabetes mellitus type: type 2 Diabetes mellitus care home insulin use: without bed bug exterminator use Diabetes mellitus complication status: with hyperglycemia Qualified Code(s): E11.65 - Type 2 diabetes mellitus with hyperglycemia (6) HTN (hypertension) Status: Chronic Qualifiers: Hypertension type: essential hypertension - Plan Plan: 1. Continue with IV fluids 2. Monitor labs 3. Check CBC 4. Oncology consultation 5. GI and DVT prophylaxis Discharge Plan: Home Plan to discharge in: Greater than 2 days - Advance Directives Does patient have a Living Will: No Does patient have a Durable POA for Healthcare: No - Code Status/Comfort Care Code Status Assessed: Yes Code Status: Full Code Critical Care: No Time Spent Managing PTS Care (In Minutes): 45
[2021-07-10] MEDS ORDERED: NA CHLORIDE 0.9% 250 ML IV ONE (16:39)
[2021-07-10] MEDS ORDERED: LACTULOSE 20 GM/30 ML UCUP PO SCH (17:00)
[2021-07-10] MEDS ORDERED: NA CHLORIDE 0.9% 1,000 ML IV SCH (17:00)
--- NOTE | 2021-07-10 17:32 | EDPHYS ---
Physician Documentation [facility] Name: Jeannette Ashby Age: 61 yrs Sex: Female : 1960 Arrival Date: 07/10/2021 Time: 10:45 Bed 6 Private MD: ED Physician Oscar Anthony HPI: 07/10 14:21 This 61 yrs old Female presents to ER via EMS with complaints of LETHARGIC. kdr 14:21 The patient presents with decreased mental status, decreased responsiveness. Onset: The kdr symptoms/episode began/occurred this morning, at an unknown time. Possible causes: CVA or TIA, alcohol. Associated signs and symptoms: The patient has no apparent associated signs or symptoms. Current symptoms: In the emergency department the patient's symptoms have improved, mildly, Patient is still somewhat confused and slow to respond. Patient's baseline: Neuro: alert and fully oriented, Motor: no deficits. It is unknown whether or not the patient has had similar symptoms in the past. It is unknown whether or not the patient has recently seen a physician. Follow-up mass was called to the patient's house when family members found that it was hard to arouse her from sleep.. Historical: - Allergies: 11:22 Tramadol HCl; bp 11:22 ACETAMINOPHEN; bp 11:22 Darvocet-N 100; bp 11:22 Demerol; bp 11:22 Erythromycin; bp 11:22 Toradol; bp 11:22 tramadol; bp 11:22 Zithromax; bp - Home Meds: 11:22 carvedilol 6.25 mg Oral tab 1 tab [Active]; Seroquel Oral [Active]; ernestro [Active]; bp Depakote Oral [Active]; Methadone Oral [Active]; gabapentin oral [Active]; - PMHx: 11:22 Anxiety; Cancer, Breast; CHF; Chronic pain; Colitis; COPD; Depression; Diabetes - IDDM; bp Hypertension; MUSCLE WEAKNESS; Cirrhosis of liver; - Immunization history:: Client reports having NOT received the Covid vaccine. - Social history:: Smoking status: Patient reports the use of cigarette tobacco products, unknown amount. ROS: 14:21 Constitutional: Patient is a poor historian unable to give significant history kdr 14:21 Unable to obtain ROS due to altered mental status. Exam: 14:21 Constitutional: This is a well developed, well nourished patient who is awake, alert, kdr and in no acute distress. Head/Face: Normocephalic, atraumatic. Neck: Trachea midline, no thyromegaly or masses palpated, and no cervical lymphadenopathy. Supple, full range of motion without nuchal rigidity, or vertebral point tenderness. No Meningismus. Chest/axilla: Normal chest wall appearance and motion. Nontender with no deformity. No lesions are appreciated. Cardiovascular: Regular rate and rhythm with a normal S1 and S2. No gallops, murmurs, or rubs. Normal PMI, no JVD. No pulse deficits. Back: No spinal tenderness. No costovertebral tenderness. Full range of motion. Skin: Warm, dry with normal turgor. Normal color with no rashes, no lesions, and no evidence of cellulitis. MS/ Extremity: Pulses equal, no cyanosis. Neurovascular intact. Full, normal range of motion. 14:21 Respiratory: the patient does not display signs of respiratory distress, Respirations: normal, Breath sounds: rales, that are mild, are scattered. 14:21 Abdomen/GI: Inspection: distension, that is moderate, obese Bowel sounds: diminished, in all quadrants, Palpation: soft, mild abdominal tenderness, in all quadrants. Vital Signs: 10:45 BP 96 / 42; Pulse 88; Resp 16; Temp 98; bp 12:00 BP 175 / 68; Pulse 87; Resp 23; Pulse Ox 93% ; bp 13:00 BP 163 / 73; Pulse 79; Resp 13; Pulse Ox 94% ; bp 15:00 BP 145 / 55; Pulse 72; Resp 13; Pulse Ox 95% ; bp 16:00 BP 106 / 71; Pulse 113; Resp 20; Pulse Ox 96% ; bp 17:00 BP 139 / 66; Pulse 65; Resp 14; Pulse Ox 99% ; bp 18:00 BP 129 / 71; Pulse 63; Resp 8; Pulse Ox 99% ; bp 20:12 BP 153 / 70; Pulse 76; Resp 12 S; Pulse Ox 100% on 2 lpm NC; as6 MDM: 14:21 Data reviewed: vital signs, nurses notes, lab test result(s), radiologic studies. kdr Counseling: I had a detailed discussion with the patient and/or guardian regarding: the historical points, exam findings, and any diagnostic results supporting the discharge/admit diagnosis, lab results, radiology results, the need for outpatient follow up. 17:31 Patient medically screened. kdr 07/10 10:53 Order name: Amylase, Serum kdr 07/10 10:53 Order name: Basic Metabolic Panel; Complete Time: 13:45 kdr 07/10 10:53 Order name: Blood Culture Adult (2) kdr 07/10 10:53 Order name: CBC with Diff; Complete Time: 13:45 kdr 07/10 10:53 Order name: CPK; Complete Time: 13:45 kdr 07/10 10:53 Order name: Ckmb; Complete Time: 13:45 kdr 07/10 10:53 Order name: LFT's; Complete Time: 13:45 kdr 07/10 10:53 Order name: Lactate; Complete Time: 13:45 kdr 07/10 10:53 Order name: Lipase; Complete Time: 13:45 kdr 07/10 10:53 Order name: Procalcitonin; Complete Time: 13:45 kdr 07/10 10:53 Order name: Protime (+inr); Complete Time: 13:45 kdr 07/10 10:53 Order name: Ptt, Activated; Complete Time: 13:45 kdr 07/10 10:53 Order name: Troponin (emerg Dept Use Only); Complete Time: 13:45 kdr 07/10 10:53 Order name: Urine Microscopic Only; Complete Time: 13:45 kdr 07/10 10:53 Order name: Amylase; Complete Time: 13:45 EDMS 07/10 10:55 Order name: ABG; Complete Time: 13:45 kdr 07/10 10:55 Order name: Depakote; Complete Time: 13:45 kdr 07/10 11:14 Order name: AMMONIA; Complete Time: 13:45 bp 07/10 11:48 Order name: Urine --Ancillary (enter results); Complete Time: 13:45 dh4 07/10 11:48 Order name: CBC Smear Scan; Complete Time: 13:45 EDMS 07/10 11:58 Order name: COVID-19 SARS RT PCR (Document "Date of Onset" if Symptomatic); Complete bp Time: 16:33 07/10 13:05 Order name: Urine Dipstick-Ancillary; Complete Time: 13:45 EDMS 07/10 13:30 Order name: Urine Culture EDMS 07/10 16:26 Order name: Comprehensive Metabolic Panel EDMS 07/10 16:26 Order name: Comprehensive Metabolic Panel EDMS 07/10 16:26 Order name: Magnesium EDMS 07/10 16:26 Order name: Magnesium EDMS 07/10 16:26 Order name: NT PRO-BNP EDMS 07/10 16:26 Order name: NT PRO-BNP EDMS 07/10 16:26 Order name: Phosphorus EDMS 07/10 10:53 Order name: Chest Single View XRAY; Complete Time: 13:45 kdr 07/10 10:53 Order name: Accucheck; Complete Time: 11:21 kdr 07/10 10:53 Order name: Cardiac monitoring; Complete Time: 11:08 kdr 07/10 10:53 Order name: EKG - Nurse/Tech; Complete Time: 11:08 kdr 07/10 10:53 Order name: IV Saline Lock - Large Bore; Complete Time: 11: kdr 07/10 10:53 Order name: Labs collected and sent; Complete Time: 11: kdr 07/10 10:53 Order name: O2 Per Protocol; Complete Time: 11: kdr 07/10 10:53 Order name: O2 Sat Monitoring; Complete Time: 11:09 kdr 07/10 10:53 Order name: Urine Dipstick-Ancillary (obtain specimen); Complete Time: 13:30 kdr 07/10 10:53 Order name: CT Head Brain wo Cont; Complete Time: 13:45 kdr 07/10 14:17 Order name: CT Abd/Pelvis - Without Contrast; Complete Time: 16:33 kdr 07/10 16:26 Order name: Phosphorus EDMS 07/10 16:27 Order name: Regular EDMS 07/10 16:27 Order name: CBC with Automated Diff EDMS 07/10 16:27 Order name: CBC with Automated Diff EDMS 07/10 16:27 Order name: Protime (+INR) EDMS 07/10 16:27 Order name: Protime (+INR) EDMS 07/10 16:27 Order name: PTT, Activated Partial Thromb EDMS 07/10 16:27 Order name: PTT, Activated Partial Thromb EDMS 07/10 16:28 Order name: Urinalysis EDMS 07/10 18:46 Order name: Urine Drug Screen bp 07/10 19:27 Order name: Urine Drug Screen EDMS Administered Medications: 11:21 Not Given (Physician Discretion): NS 0.9% (30 ml/kg) 30 ml/kg IV at bolus once; Sepsis bp Protocol 14:45 Drug: Rocephin - (cefTRIAXone) 1 grams Route: IVPB; Infused Over: 30 mins; Site: left bp jugular; 21:05 Follow up: Response: No adverse reaction; IV Status: Completed infusion; IV Intake: [id number] Disposition Summary: 07/10/21 17:31 Hospitalization Ordered Hospitalization Status: Inpatient Admission kdr Provider: Jody Byrd Location: Telemetry/[facility] (Inpatient) kdr Condition: Fair kdr Problem: new kdr Symptoms: have improved kdr Bed/Room Type: Standard kdr Room Assignment: 201(07/10/21 20:28) cs9 Diagnosis - Altered mental status, unspecified kdr - Anemia, unspecified kdr Forms: - Medication Reconciliation Form kdr - SBAR form kdr Signatures: Dispatcher [employer] EDOscar Acuna MD MD kdr Je Macias RN RN Sheila Browne cs9 Harinder Beaver RN as6 Corrections: (The following items were deleted from the chart) 11: 11:22 PMHx: Liver cell carcinoma; bp bp 20:28 17:31 kdr cs9
--- NOTE | 2021-07-10 17:32 | ER ---
Nurse's Notes [facility] Name: Jeannette Ashby Age: 61 yrs Sex: Female : 1960 Arrival Date: 07/10/2021 Time: 10:45 Bed 6 Private MD: Diagnosis: Altered mental status, unspecified;Anemia, unspecified Presentation: 07/10 10:45 Chief complaint: EMS states: HARD TO AROUSE AT HOME. Coronavirus screen: At this time, bp the client does not indicate any symptoms associated with coronavirus-19. Ebola Screen: No symptoms or risks identified at this time. 10:45 Method Of Arrival: EMS: [facility] bp 11:21 Initial Sepsis Screen: Does the patient meet any 2 criteria? Mean Arterial Pressure bp (MAP) < 65. Altered Mental Status. HR > 90 bpm. Yes Does the patient have a suspected source of infection? No. Patient's initial sepsis screen is negative. Risk Assessment: Do you want to hurt yourself or someone else? Patient reports no desire to harm self or others. Onset of symptoms is unknown. Care prior to arrival: Oxygen administered. via a non-rebreather mask. 11:21 Acuity: VERONICA 2 bp Triage Assessment: 11:15 General: Appears in no apparent distress. Behavior is listless. Pain: Unable to use bp pain scale. Does not appear to understand pain scale. EENT: No deficits noted. Neuro: Level of Consciousness is obtunded, Oriented to none. Cardiovascular: No deficits noted. Respiratory: No deficits noted. GI: No signs and/or symptoms were reported involving the gastrointestinal system. : No signs and/or symptoms were reported regarding the genitourinary system. Derm: No deficits noted. Musculoskeletal: No deficits noted. Historical: - Allergies: 11:22 Tramadol HCl; bp 11:22 ACETAMINOPHEN; bp 11:22 Darvocet-N 100; bp 11:22 Demerol; bp 11:22 Erythromycin; bp 11:22 Toradol; bp 11:22 tramadol; bp 11:22 Zithromax; bp - Home Meds: 11:22 carvedilol 6.25 mg Oral tab 1 tab [Active]; Seroquel Oral [Active]; ernestro [Active]; bp Depakote Oral [Active]; Methadone Oral [Active]; gabapentin oral [Active]; - PMHx: 11:22 Anxiety; Cancer, Breast; CHF; Chronic pain; Colitis; COPD; Depression; Diabetes - IDDM; bp Hypertension; MUSCLE WEAKNESS; Cirrhosis of liver; - Immunization history:: Client reports having NOT received the Covid vaccine. - Social history:: Smoking status: Patient reports the use of cigarette tobacco products, unknown amount. Screenin:15 Abuse screen: Denies threats or abuse. Denies injuries from another. Nutritional bp screening: No deficits noted. Tuberculosis screening: No symptoms or risk factors identified. Fall Risk None identified. Assessment: 11:15 General: SEE TRIAGE NOTE. bp 13:03 Reassessment: No changes from previously documented assessment. Patient and/or family bp updated on plan of care and expected duration. Pain level reassessed. ALL CURRENT ORDERS COMPLETED. PT MINIMALLY RESPONSIVE TO CASTILLO INSERTION. 15:00 Reassessment: No changes from previously documented assessment. Patient and/or family bp updated on plan of care and expected duration. Pain level reassessed. PER MD, PT TBA. 16:40 Reassessment: DR BYRD AT B/S FOR ADMIT. bp 18:30 Reassessment: No changes from previously documented assessment. Patient and/or family bp updated on plan of care and expected duration. Pain level reassessed. PT AWAKE, SITTING UP IN BED. CLAIMS SHE HAS NOT TAKEN ANY OF HER MEDICATION FOR "A WHILE". PT SPEECH REMAINS SLURRED AND HANDS TREMULOUS. 20:12 Reassessment: Patient appears in no apparent distress at this time. General: pt as6 sleeping at this time. Vital Signs: 10:45 BP 96 / 42; Pulse 88; Resp 16; Temp 98; bp 12:00 BP 175 / 68; Pulse 87; Resp 23; Pulse Ox 93% ; bp 13:00 BP 163 / 73; Pulse 79; Resp 13; Pulse Ox 94% ; bp 15:00 BP 145 / 55; Pulse 72; Resp 13; Pulse Ox 95% ; bp 16:00 BP 106 / 71; Pulse 113; Resp 20; Pulse Ox 96% ; bp 17:00 BP 139 / 66; Pulse 65; Resp 14; Pulse Ox 99% ; bp 18:00 BP 129 / 71; Pulse 63; Resp 8; Pulse Ox 99% ; bp 20:12 BP 153 / 70; Pulse 76; Resp 12 S; Pulse Ox 100% on 2 lpm NC; as6 ED Course: 10:45 Patient arrived in ED. bp 10:51 Oscar Anthony MD is Attending Physician. kdr 11:00 Inserted saline lock: 18 gauge in left EJ, using aseptic technique. Blood collected. bp 11:07 Patient has correct armband on for positive identification. Bed in low position. Call [facility] light in reach. Side rails up X2. Warm blanket given. casino accountant on. Pulse ox on. NIBP on. 11:08 Initial lab(s) drawn, by ED staff, sent to lab. EKG done, by ED staff, reviewed by [facility] Oscar Anthony MD. 11:08 Depakote Sent. [facility] 11:08 Amylase Sent. [facility] 11:08 Amylase, Serum Sent. [facility] 11:09 Basic Metabolic Panel Sent. [facility] 11:09 CBC with Diff Sent. [facility] 11:09 CPK Sent. [facility] 11:09 Ckmb Sent. [facility] 11:09 LFT's Sent. [facility] 11:09 Lactate Sent. [facility] 11:09 Lipase Sent. [facility] 11:09 Procalcitonin Sent. [facility] 11:09 Protime (+inr) Sent. [facility] 11:09 Ptt, Activated Sent. [facility] 11:09 Troponin (emerg Dept Use Only) Sent. [facility] 11:14 Je Macias, RN is Primary Nurse. bp 11:19 CT Head Brain wo Cont In Process Unspecified. EDMS 11:21 Chest Single View XRAY In Process Unspecified. EDMS 11:22 Triage completed. bp 13:02 Castillo cath inserted, using sterile technique, 18 Fr., by wy, balloon inflated, to bp gravity drainage, urine specimen collected. 13:30 Urine Microscopic Only Sent. [facility] 13:30 Urine collected: Castillo catheter specimen, christine colored. mh5 14:50 CT Abd/Pelvis - Without Contrast In Process Unspecified. EDMS 17:28 Jody Byrd MD is Hospitalizing Provider. kdr 21:05 No provider procedures requiring assistance completed. Patient admitted, IV remains in as6 place. 21:06 Arm band placed on. as6 Administered Medications: 11:21 Not Given (Physician Discretion): NS 0.9% (30 ml/kg) 30 ml/kg IV at bolus once; Sepsis bp Protocol 14:45 Drug: Rocephin - (cefTRIAXone) 1 grams Route: IVPB; Infused Over: 30 mins; Site: left bp jugular; 21:05 Follow up: Response: No adverse reaction; IV Status: Completed infusion; IV Intake: [id number] Intake: 21:05 IV: 50ml; Total: 50ml. as6 Outcome: 17:31 Decision to Hospitalize by Provider. kdr 21:05 Admitted to Med/surg accompanied by tech, via stretcher, room 201, with chart, Report as6 called to RN 21:05 Condition: stable 21:06 Patient left the ED. as6 Signatures: Dispatcher [employer] EDMS Oscar Anthony MD MD kdr Martinez, Maria [facility] Je Macias RN RN Harinder Navarro RN RN as6 Corrections: (The following items were deleted from the chart) 11:25 11:22 PMHx: Liver cell carcinoma; bp bp
[2021-07-10 19:27] LABS: Barbiturates NEGATIVE (NEGATIVE); Benzodiazepines NEGATIVE (NEGATIVE); Cocaine NEGATIVE (NEGATIVE); METHAMPHETAM NEGATIVE (NEGATIVE); Methadone POSITIVE (NEGATIVE); Opiates NEGATIVE (NEGATIVE); Phencyclidine NEGATIVE (NEGATIVE); THC Cannibis NEGATIVE (NEGATIVE)
[2021-07-10] MEDS ORDERED: CEFTRIAXONE 1,000 MG in NA CHLORIDE 0.9% 50 ML IVPB SCH (21:00)
[2021-07-10 21:26] VITALS: O2SAT 100
[2021-07-10 21:33] VITALS: BP 162/72; TEMP 97.2; BMI 29.6
--- NOTE | 2021-07-16 01:01 | P.DS ---
Discharge Date: 07/10/21 Disposition: AMA-LEFT AGAINST MEDICAL ADVIC Discharge Condition: GOOD Reason for Admission: AMS - Problems (1) AMS (altered mental status) Status: Acute (2) Polysubstance (including opioids) dependence, daily use Status: Acute (3) Cirrhosis Status: Acute Qualifiers: Hepatic cirrhosis type: unspecified hepatic cirrhosis Ascites presence: with ascites Qualified Code(s): K74.60 - Unspecified cirrhosis of liver; R18.8 - Other ascites (4) COPD (chronic obstructive pulmonary disease) Status: Chronic Qualifiers: COPD type: chronic bronchitis Chronic bronchitis type: mixed simple and mucopurulent Qualified Code(s): J41.8 - Mixed simple and mucopurulent chronic bronchitis (5) Diabetes mellitus Status: Chronic Qualifiers: Diabetes mellitus type: type 2 Diabetes mellitus long term care phlebotomist insulin use: without long term care phlebotomist use Diabetes mellitus complication status: with hyperglycemia Qualified Code(s): E11.65 - Type 2 diabetes mellitus with hyperglycemia (6) HTN (hypertension) Status: Chronic Qualifiers: Hypertension type: essential hypertension Brief History of Present Illness: 61-year-old female with history of chronic systolic congestive heart failure, 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 Patient mentation worsened overnight according to the mother. Patient was seen at [facility] recently for similar symptoms. Hospital Course: Patient slowly woke up and decided to leave against medical advice. Vital Signs/Physical Exam: Temp Pulse Resp BP Pulse Ox 97.2 F 75 19 162/72 H 100 07/10/21 21:32 07/10/21 21:32 07/10/21 21:32 07/10/21 21:32 07/10/21 21:32 General: Alert, In no apparent distress, Oriented x3 Laboratory Data at Discharge: WBC Cancelled 07/11/21 05:00 Hgb Cancelled 07/11/21 05:00 Hct Cancelled 07/11/21 05:00 Plt Count Cancelled 07/11/21 05:00 PT Cancelled 07/11/21 05:00 INR Cancelled 07/11/21 05:00 APTT Cancelled 07/11/21 05:00 Sodium Cancelled 07/11/21 05:00 Potassium Cancelled 07/11/21 05:00 BUN Cancelled 07/11/21 05:00 Creatinine Cancelled 07/11/21 05:00 Glucose Cancelled 07/11/21 05:00 Phosphorus Cancelled 07/11/21 05:00 Magnesium Cancelled 07/11/21 05:00 Total Bilirubin Cancelled 07/11/21 05:00 AST Cancelled 07/11/21 05:00 ALT Cancelled 07/11/21 05:00 Alkaline Phosphatase Cancelled 07/11/21 05:00 Amylase 113 U/L (25-115) 07/10/21 11:15 Lipase 97 U/L (73-393) 07/10/21 11:15 Home Medications: Carvedilol [Coreg] 12.5 mg PO BID 07/21/20 Divalproex Sodium [Depakote] 500 mg PO BID 07/21/20 Furosemide [Lasix] 40 mg PO DAILY 07/21/20 Gabapentin 300 mg PO BID 07/21/20 Insulin Degludec [Tresiba Flextouch U-200] 50 unit SQ DAILY 07/21/20 Insulin Lispro [Humalog*] 10 unit SQ TIDWM 07/21/20 Levothyroxine [Synthroid] 75 mcg PO [id number] 07/21/20 Quetiapine [Seroquel] 300 mg PO BEDTIME 07/21/20 Sacubitril/Valsartan [Entresto 49 mg-51 mg Tablet] 1 tab PO BID 07/21/20 Physician Discharge Instructions: Patient left against medical advice Followup: YASHIRA AC [Primary Care Provider] - Time spent managing pt's care (in minutes): 35
== END 2021-07-10 23:50 | disposition left against medical advice (07) | DRG 948 ==
LOC: ER 10:42 → ERHOLD 16:22 → 2ND 20:40
PROVIDERS: ADMIT Hospitalist; ATTEND Hospitalist
DX: R41.82 Altered mental status, unspecified (principal); I50.22 Chronic systolic (congestive) heart failure; F19.20 Other psychoactive substance dependence, uncomplicated; R18.8 Other ascites; I11.0 Hypertensive heart disease with heart failure; E11.65 Type 2 diabetes mellitus with hyperglycemia; D64.9 Anemia, unspecified; J41.8 Mixed simple and mucopurulent chronic bronchitis; K74.60 Unspecified cirrhosis of liver; Z85.05 Personal history of malignant neoplasm of liver; Z88.5 Allergy status to narcotic agent; Z88.1 Allergy status to other antibiotic agents; Z88.8 Allergy status to other drugs, medicaments and biological substances; Z79.4 Long term (current) use of insulin; Z79.890 Hormone replacement therapy; Z79.899 Other long term (current) drug therapy; Z60.2 Problems related to living alone; Z90.710 Acquired absence of both cervix and uterus; Z90.49 Acquired absence of other specified parts of digestive tract; Z20.822 Contact with and (suspected) exposure to COVID-19
CPT/HCPCS: 36415; 51702; 70450; 71045; 74176; 80048; 80076; 80164; 80307; 81003; 81015; 81025; 82140; 82150; 82550; 82553; 82805; 82947; 83605; 83690; 84145; 84484; 85025; 85610; 85730; 87040; 87086; 87088; 87205; 93005; 96365; 96366; 99285; J7030; U0003